=== PATIENT | male | born 1955 | race Caucasian/White ===

== ENCOUNTER 2017-12-20 12:14 | Inpatient (IN) | payer BC ==
[2017-12-20 13:30] LABS: ADD MAN DIFF? NO
[2017-12-20 13:32] LABS: ABNORMAL IP MESSAGE 1; BASOPHIL # 0.4 10^3/ul (0.0-0.1); BASOPHILS % 1.9 % (0.0-2.0); EOSINOPHILS # 0.1 10^3/ul (0.0-0.5); EOSINOPHILS % 0.4 % (0.0-7.0); HEMATOCRIT 26.5 % (42.0-52.0); HEMOGLOBIN 8.6 g/dl (14.0-18.0); LYMPHOCYTES # 1.3 10^3/ul (0.8-2.9); LYMPHOCYTES % 5.5 % (15.0-51.0); MEAN CORPUSCULAR HEMOGLOBIN 26.2 pg (29.0-33.0); MEAN CORPUSCULAR HGB CONC 32.5 g/dl (32.0-37.0); MEAN CORPUSCULAR VOLUME 80.8 fl (82.0-101.0); MEAN PLATELET VOLUME 11.9 fl (7.4-10.4); MONOCYTE # 4.9 10^3/ul (0.3-0.9); MONOCYTES % 20.5 % (0.0-11.0); NEUTROPHIL # 16.3 10^3/ul (1.6-7.5); NEUTROPHILS % 68.5 % (39.0-77.0); PLATELET COUNT 439 10^3/UL (140-415); POSITIVE DIFF @See below; RED BLOOD COUNT 3.28 10^6/ul (4.70-6.10); RED CELL DISTRIBUTION WIDTH 19.9 % (11.5-14.5)
[2017-12-20 13:32] LABS: WHITE BLOOD COUNT 23.8 10^3/ul (4.8-10.8)
[2017-12-20 13:47] LABS: AMMONIA 44 umol/l (9-30)
[2017-12-20] MEDS: CEFEPIME 1GM/50 ML (PMX) 50 ML IVPB (13:50)
[2017-12-20] MEDS: SOD CHLORIDE 0.9% 1,000 ML IV (13:50)
[2017-12-20 14:00] LABS: ALANINE AMINOTRANSFERASE 53 IU/L (13-69); ALBUMIN 2.1 g/dl (3.3-4.9); ALKALINE PHOSPHATASE 191 IU/L (42-121); ANION GAP 17 (8-16); ASPARTATE AMINO TRANSFERASE 70 IU/L (15-46); BILIRUBIN,INDIRECT 0.4 mg/dl (0-1.1); BILIRUBIN,TOTAL 0.4 mg/dl (0.2-1.3); BLOOD UREA NITROGEN 21 mg/dl (7-20); CARBON DIOXIDE 20 mmol/L (21-31); CHLORIDE 95 mmol/L (97-110); CREATININE 2.92 mg/dl (0.61-1.24); GLUCOSE 94 mg/dl (70-220); LIPASE 17 U/L (23-300); SODIUM 129 mmol/L (135-144); TOTAL PROTEIN 5.1 g/dl (6.1-8.1)
[2017-12-20 14:05] LABS: INR 1.53; PARTIAL THROMBOPLASTIN TIME 38.8 Sec (25.0-35.0); PROTIME 18.7 Sec (11.9-14.9); PT RATIO 1.5
[2017-12-20 14:07] LABS: POTASSIUM 2.9 mmol/L (3.5-5.1)
[2017-12-20 14:09] LABS: B-TYPE NATRIURETIC PEPTIDE 372 PG/ML (0-125)
[2017-12-20 14:11] LABS: TROPONIN-I < 0.012 ng/ml (0.00-0.12)
[2017-12-20] MEDS: POTASSIUM CHLORIDE 50 ML IVPB ×2 (14:23→18:44)
[2017-12-20] MEDS: LACTULOSE 30ML CUP PO (15:43)
[2017-12-20 16:24] LABS: ADD UMIC NO; UR ASCORBIC ACID NEGATIVE (NEGATIVE); UR BILIRUBIN (Dip) NEGATIVE (NEGATIVE); UR BLOOD (Dip) NEGATIVE (NEGATIVE); UR CLARITY CLEAR (CLEAR); UR COLOR YELLOW (YELLOW); UR GLUCOSE (Dip) NEGATIVE (NEGATIVE); UR KETONES (Dip) NEGATIVE (NEGATIVE); UR LEUKOCYTE ESTERASE (Dip) NEGATIVE Leu/ul (NEGATIVE); UR NITRITE (Dip) NEGATIVE (NEGATIVE); UR SPECIFIC GRAVITY (Dip) 1.009 (1.003-1.030); UR TOTAL PROTEIN (Dip) NEGATIVE (NEGATIVE); UR UROBILINOGEN (Dip) NEGATIVE (NEGATIVE)
[2017-12-20] MEDS: CALCIUM GLUCONATE 10% 2 GM in DEXTROSE 5% 100 ML IVPB (16:29)
[2017-12-20] MEDS: CLINDAMYCIN 600 MG/D5W (PMX) 50 ML IVPB (18:52)
[2017-12-20 19:47] LABS: LACTIC ACID 4.3 mmol/L (0.5-2.0)
[2017-12-20] MEDS ORDERED: VANCOMYCIN IV PER PHARMACY XX (22:00)
[2017-12-20] MEDS ORDERED: ACETAMINOPHEN 500 MG TAB PO (22:00)
[2017-12-20] MEDS: morphine 2 MG INJ IV (22:44)
[2017-12-20] MEDS: SOD CHLORIDE 0.45% 1,000 ML IV (22:46)
[2017-12-20 22:47] LABS: LACTIC ACID 4.1 mmol/L (0.5-2.0)
[2017-12-20] MEDS: POTASSIUM CHLORIDE 20 MEQ/SW 100 ML IVPB (23:30)
[2017-12-21] MEDS: VANCOMYCIN 2 GM in SOD CHLORIDE 0.9% 500 ML IVPB (00:47)
[2017-12-21] MEDS: POTASSIUM CHLORIDE 20 MEQ/SW 100 ML IVPB (01:30)
[2017-12-21] MEDS: LEVOTHYROXINE 100 MCG TAB PO (05:30)
[2017-12-21] MEDS: oxyCODONE 5 MG TAB PO ×2 (05:30→11:37)
[2017-12-21 07:27] LABS: ADD MAN DIFF? NO
[2017-12-21 07:32] LABS: WHITE BLOOD COUNT 18.3 10^3/ul (4.8-10.8)
[2017-12-21 07:32] LABS: ABNORMAL IP MESSAGE 1; BASOPHIL # 0.4 10^3/ul (0.0-0.1); EOSINOPHILS # 0.2 10^3/ul (0.0-0.5); EOSINOPHILS % 0.9 % (0.0-7.0); HEMATOCRIT 26.9 % (42.0-52.0); HEMOGLOBIN 8.7 g/dl (14.0-18.0); LYMPHOCYTES # 0.8 10^3/ul (0.8-2.9); LYMPHOCYTES % 4.4 % (15.0-51.0); MEAN CORPUSCULAR HEMOGLOBIN 25.9 pg (29.0-33.0); MEAN CORPUSCULAR HGB CONC 32.3 g/dl (32.0-37.0); MEAN CORPUSCULAR VOLUME 80.1 fl (82.0-101.0); MEAN PLATELET VOLUME 11.9 fl (7.4-10.4); MONOCYTE # 3.8 10^3/ul (0.3-0.9); MONOCYTES % 20.7 % (0.0-11.0); NEUTROPHIL # 12.7 10^3/ul (1.6-7.5); NEUTROPHILS % 69.5 % (39.0-77.0); PLATELET COUNT 388 10^3/UL (140-415); POSITIVE DIFF @See below; RED BLOOD COUNT 3.36 10^6/ul (4.70-6.10); RED CELL DISTRIBUTION WIDTH 19.8 % (11.5-14.5)
[2017-12-21 07:56] LABS: ANION GAP 12 (8-16); BLOOD UREA NITROGEN 21 mg/dl (7-20); CALCIUM 7.1 mg/dl (8.4-10.2); CARBON DIOXIDE 25 mmol/L (21-31); CHLORIDE 99 mmol/L (97-110); CREATININE 1.96 mg/dl (0.61-1.24); GLUCOSE 91 mg/dl (70-220); POTASSIUM 3.8 mmol/L (3.5-5.1); SODIUM 132 mmol/L (135-144)
[2017-12-21] MEDS: CEFEPIME 1GM/50 ML (PMX) 50 ML IVPB ×2 (09:20→22:30)
[2017-12-21] MEDS: FOLIC ACID 1 MG TAB PO (09:20)
[2017-12-21] MEDS: ALLOPURINOL 100 MG TAB PO (09:20)
[2017-12-21] MEDS: METOPROLOL (XL) 100 MG TAB PO (09:25)
[2017-12-21] MEDS: SOD CHLORIDE 0.45% 1,000 ML IV (11:20)
[2017-12-21] MEDS: LORAZEPAM 2 MG INJ IV (15:36)
[2017-12-21] MEDS: NEOMYC/POLYMYX/BACIT 30 GM OINT TOP ×2 (17:56→21:00)
[2017-12-21] MEDS: DOCUSATE SODIUM 100 MG CAP PO (22:28)
[2017-12-21] MEDS: TAMSULOSIN (SR) 0.4 MG CAP PO (22:28)
[2017-12-22] MEDS: oxyCODONE 5 MG TAB PO ×2 (01:17→20:25)
[2017-12-22] MEDS: VANCOMYCIN 1.25 GM in SOD CHLORIDE 0.9% 250 ML IVPB (01:17)
[2017-12-22] MEDS: LORAZEPAM 2 MG INJ IV ×3 (03:08→21:38)
[2017-12-22] MEDS: LEVOTHYROXINE 100 MCG TAB PO (06:23)
[2017-12-22 09:08] LABS: ADD MAN DIFF? NO
[2017-12-22] MEDS: NEOMYC/POLYMYX/BACIT 30 GM OINT TOP ×2 (09:18→21:45)
[2017-12-22] MEDS: FOLIC ACID 1 MG TAB PO (09:19)
[2017-12-22] MEDS: ALLOPURINOL 100 MG TAB PO (09:19)
[2017-12-22] MEDS: METOPROLOL (XL) 100 MG TAB PO (09:19)
[2017-12-22] MEDS: CEFEPIME 1GM/50 ML (PMX) 50 ML IVPB ×2 (09:19→21:44)
[2017-12-22 09:31] LABS: ANION GAP 12 (8-16); BLOOD UREA NITROGEN 21 mg/dl (7-20); CARBON DIOXIDE 22 mmol/L (21-31); CHLORIDE 104 mmol/L (97-110); GLUCOSE 72 mg/dl (70-220); POTASSIUM 4.8 mmol/L (3.5-5.1); SODIUM 133 mmol/L (135-144)
[2017-12-22 10:24] LABS: BLOOD UREA NITROGEN 21 mg/dl (7-20)
[2017-12-22 10:24] LABS: CREATININE 1.62 mg/dl (0.61-1.24)
[2017-12-22 14:12] LABS: WHITE BLOOD COUNT 15.8 10^3/ul (4.8-10.8)
[2017-12-22 14:12] LABS: ABNORMAL IP MESSAGE 1; BASOPHIL # 0.3 10^3/ul (0.0-0.1); EOSINOPHILS # 0.2 10^3/ul (0.0-0.5); EOSINOPHILS % 1.1 % (0.0-7.0); HEMATOCRIT 30.4 % (42.0-52.0); HEMOGLOBIN 9.5 g/dl (14.0-18.0); LYMPHOCYTES # 0.8 10^3/ul (0.8-2.9); LYMPHOCYTES % 5.1 % (15.0-51.0); MEAN CORPUSCULAR HEMOGLOBIN 25.9 pg (29.0-33.0); MEAN CORPUSCULAR HGB CONC 31.3 g/dl (32.0-37.0); MEAN CORPUSCULAR VOLUME 82.8 fl (82.0-101.0); MEAN PLATELET VOLUME 11.9 fl (7.4-10.4); MONOCYTE # 2.3 10^3/ul (0.3-0.9); MONOCYTES % 14.6 % (0.0-11.0); NEUTROPHIL # 11.9 10^3/ul (1.6-7.5); NEUTROPHILS % 75.4 % (39.0-77.0); PLATELET COUNT 326 10^3/UL (140-415); POSITIVE DIFF @See below; RED BLOOD COUNT 3.67 10^6/ul (4.70-6.10); RED CELL DISTRIBUTION WIDTH 20.1 % (11.5-14.5)
[2017-12-22] MEDS: DOCUSATE SODIUM 100 MG CAP PO (21:00)
[2017-12-22] MEDS: TAMSULOSIN (SR) 0.4 MG CAP PO (21:44)
[2017-12-23] MEDS: oxyCODONE 5 MG TAB PO ×3 (00:51→21:12)
[2017-12-23] MEDS: VANCOMYCIN 1.25 GM in SOD CHLORIDE 0.9% 250 ML IVPB (01:14)
[2017-12-23] MEDS: LORAZEPAM 2 MG INJ IV ×3 (03:51→21:13)
[2017-12-23] MEDS: LEVOTHYROXINE 100 MCG TAB PO (06:14)
[2017-12-23] MEDS: ALLOPURINOL 100 MG TAB PO (09:12)
[2017-12-23] MEDS: FOLIC ACID 1 MG TAB PO (09:12)
[2017-12-23] MEDS: NEOMYC/POLYMYX/BACIT 30 GM OINT TOP ×2 (09:12→21:14)
[2017-12-23] MEDS: CEFEPIME 1GM/50 ML (PMX) 50 ML IVPB ×2 (09:13→21:03)
[2017-12-23] MEDS: METOPROLOL (XL) 100 MG TAB PO (09:13)
[2017-12-23] MEDS: DOCUSATE SODIUM 100 MG CAP PO (21:03)
[2017-12-23] MEDS: TAMSULOSIN (SR) 0.4 MG CAP PO (21:03)
[2017-12-23] MEDS: ALBUTEROL/IPRATROPIUM (NEB) 3 ML AMP HHN (23:55)
[2017-12-24] MEDS: VANCOMYCIN 1.25 GM in SOD CHLORIDE 0.9% 250 ML IVPB (00:32)
[2017-12-24 01:38] LABS: VANCOMYCIN,TROUGH 14.1 ug/ml (10.0-20.0)
[2017-12-24] MEDS: LEVOTHYROXINE 100 MCG TAB PO (05:03)
[2017-12-24] MEDS: oxyCODONE 5 MG TAB PO ×2 (05:11→09:07)
[2017-12-24 07:45] LABS: ADD MAN DIFF? NO
[2017-12-24 08:08] LABS: BLOOD UREA NITROGEN 18 mg/dl (7-20); CALCIUM 7.4 mg/dl (8.4-10.2); CARBON DIOXIDE 22 mmol/L (21-31); CHLORIDE 107 mmol/L (97-110); CREATININE 1.26 mg/dl (0.61-1.24); GLUCOSE 89 mg/dl (70-220); SODIUM 136 mmol/L (135-144)
[2017-12-24 08:16] LABS: ANION GAP 13 (8-16)
[2017-12-24 08:21] LABS: POTASSIUM 5.6 mmol/L (3.5-5.1)
[2017-12-24] MEDS: ALLOPURINOL 100 MG TAB PO (09:02)
[2017-12-24] MEDS: FOLIC ACID 1 MG TAB PO (09:02)
[2017-12-24] MEDS: NEOMYC/POLYMYX/BACIT 30 GM OINT TOP (09:02)
[2017-12-24] MEDS: METOPROLOL (XL) 100 MG TAB PO (09:03)
[2017-12-24 09:06] LABS: ABNORMAL IP MESSAGE 1; BASOPHIL # 0.5 10^3/ul (0.0-0.1); BASOPHILS % 2.7 % (0.0-2.0); EOSINOPHILS # 0.3 10^3/ul (0.0-0.5); EOSINOPHILS % 1.9 % (0.0-7.0); HEMATOCRIT 29.4 % (42.0-52.0); HEMOGLOBIN 8.8 g/dl (14.0-18.0); MEAN CORPUSCULAR HEMOGLOBIN 25.4 pg (29.0-33.0); MEAN CORPUSCULAR HGB CONC 29.9 g/dl (32.0-37.0); MONOCYTE # 2.6 10^3/ul (0.3-0.9); MONOCYTES % 15.4 % (0.0-11.0); NEUTROPHIL # 12.2 10^3/ul (1.6-7.5); NEUTROPHILS % 71.8 % (39.0-77.0); PLATELET COUNT 257 10^3/UL (140-415); POSITIVE DIFF @See below; RED BLOOD COUNT 3.46 10^6/ul (4.70-6.10); RED CELL DISTRIBUTION WIDTH 20.3 % (11.5-14.5)
[2017-12-24 09:49] LABS: POTASSIUM 4.3 mmol/L (3.5-5.1)
== END 2017-12-24 13:16 | disposition left against medical advice (07) | DRG 871 ==
LOC: E/R 12:14 → MS4 14:29
DX: A41.9 Sepsis, unspecified organism (principal); R65.21 Severe sepsis with septic shock; L03.115 Cellulitis of right lower limb; L03.116 Cellulitis of left lower limb; N17.9 Acute kidney failure, unspecified; E87.2 Acidosis; E87.6 Hypokalemia; E03.9 Hypothyroidism, unspecified; E66.9 Obesity, unspecified; F10.20 Alcohol dependence, uncomplicated; F17.200 Nicotine dependence, unspecified, uncomplicated; J44.9 Chronic obstructive pulmonary disease, unspecified; I87.2 Venous insufficiency (chronic) (peripheral); I12.9 Hypertensive chronic kidney disease with stage 1 through stage 4 chronic kidney disease, or unspecified chronic kidney disease; K70.31 Alcoholic cirrhosis of liver with ascites; N18.9 Chronic kidney disease, unspecified; Z68.35 Body mass index [BMI] 35.0-35.9, adult
CPT/HCPCS: 71045; 74176; 80048; 80053; 80202; 80306; 81003; 82140; 82565; 83605; 83690; 83880; 84132; 84484; 84520; 85025; 85610; 85730; 87040; 87081; 87086; 93005; 94664; 96365; 96366; 96368; 99291-25

== ENCOUNTER 2017-12-24 15:50 | Inpatient (IN) | payer BC ==
[2017-12-24 20:08] LABS: WHITE BLOOD COUNT 20.6 10^3/ul (4.8-10.8)
[2017-12-24 20:08] LABS: ABNORMAL IP MESSAGE 1; HEMATOCRIT 28.1 % (42.0-52.0); HEMOGLOBIN 8.9 g/dl (14.0-18.0); MEAN CORPUSCULAR HEMOGLOBIN 26.3 pg (29.0-33.0); MEAN CORPUSCULAR HGB CONC 31.7 g/dl (32.0-37.0); MEAN CORPUSCULAR VOLUME 83.1 fl (82.0-101.0); MEAN PLATELET VOLUME 12.4 fl (7.4-10.4); PLATELET COUNT 332 10^3/UL (140-415); POSITIVE DIFF @See below; RED BLOOD COUNT 3.38 10^6/ul (4.70-6.10); RED CELL DISTRIBUTION WIDTH 19.9 % (11.5-14.5)
[2017-12-24 20:16] LABS: ADD MAN DIFF? YES
[2017-12-24 20:19] LABS: ANION GAP 16 (8-16); BLOOD UREA NITROGEN 16 mg/dl (7-20); CALCIUM 7.3 mg/dl (8.4-10.2); CARBON DIOXIDE 19 mmol/L (21-31); CHLORIDE 105 mmol/L (97-110); CREATININE 1.29 mg/dl (0.61-1.24); GLUCOSE 111 mg/dl (70-220); POTASSIUM 3.7 mmol/L (3.5-5.1); SODIUM 136 mmol/L (135-144)
[2017-12-24 20:30] LABS: B-TYPE NATRIURETIC PEPTIDE 1240 PG/ML (0-125)
[2017-12-24 20:32] LABS: TROPONIN-I < 0.012 ng/ml (0.00-0.12)
[2017-12-24 21:13] LABS: ALANINE AMINOTRANSFERASE 50 IU/L (13-69); ALBUMIN 2.2 g/dl (3.3-4.9); ALKALINE PHOSPHATASE 213 IU/L (42-121); ASPARTATE AMINO TRANSFERASE 73 IU/L (15-46); BILIRUBIN,INDIRECT 0.4 mg/dl (0-1.1); BILIRUBIN,TOTAL 0.4 mg/dl (0.2-1.3); TOTAL PROTEIN 5.3 g/dl (6.1-8.1)
[2017-12-24 23:54] LABS: BASOPHIL # 0.5 10^3/ul (0.0-0.1); BASOPHILS % 2.6 % (0.0-2.0); EOSINOPHILS # 0.3 10^3/ul (0.0-0.5); EOSINOPHILS % 1.3 % (0.0-7.0); LYMPHOCYTES # 1.2 10^3/ul (0.8-2.9); LYMPHOCYTES % 5.8 % (15.0-51.0); MONOCYTE # 3.2 10^3/ul (0.3-0.9); MONOCYTES % 15.4 % (0.0-11.0); NEUTROPHIL # 14.9 10^3/ul (1.6-7.5); NEUTROPHILS % 72.2 % (39.0-77.0)
[2017-12-25] MEDS ORDERED: VANCOMYCIN IV PER PHARMACY XX (01:00)
[2017-12-25 01:52] LABS: CREATINE KINASE 42 IU/L (23-200)
[2017-12-25 02:03] LABS: CK INDEX 3.9
[2017-12-25 02:06] LABS: CK-MB 1.65 ng/ml (0.0-2.4); TROPONIN-I < 0.012 ng/ml (0.00-0.12)
[2017-12-25] MEDS: LORAZEPAM 0.5 MG TAB PO ×2 (02:11→16:35)
[2017-12-25] MEDS: HYDROmorphONE 0.5 MG/0.5 ML SYG IV ×3 (02:12→20:28)
[2017-12-25] MEDS: VANCOMYCIN 1.25 GM in SOD CHLORIDE 0.9% 250 ML IVPB (03:13)
[2017-12-25] MEDS: oxyCODONE (CR) 10 MG TAB [oxyCONTIN] PO ×5 (03:19→22:28)
[2017-12-25] MEDS: FUROSEMIDE 40 MG INJ IV ×2 (05:22→17:14)
[2017-12-25] MEDS: LEVOTHYROXINE 100 MCG TAB PO (05:23)
[2017-12-25] MEDS: CEFEPIME 1GM/50 ML (PMX) 50 ML IVPB ×3 (08:11→17:14)
[2017-12-25] MEDS: FOLIC ACID 1 MG TAB PO (08:12)
[2017-12-25] MEDS: METOPROLOL (XL) 100 MG TAB PO (08:12)
[2017-12-25] MEDS: ALLOPURINOL 100 MG TAB PO (08:12)
[2017-12-25 08:24] LABS: ADD MAN DIFF? NO
[2017-12-25 08:34] LABS: ABNORMAL IP MESSAGE 1; BASOPHIL # 0.6 10^3/ul (0.0-0.1); BASOPHILS % 2.7 % (0.0-2.0); EOSINOPHILS # 0.6 10^3/ul (0.0-0.5); EOSINOPHILS % 2.9 % (0.0-7.0); HEMATOCRIT 30.1 % (42.0-52.0); HEMOGLOBIN 9.3 g/dl (14.0-18.0); LYMPHOCYTES # 1.4 10^3/ul (0.8-2.9); LYMPHOCYTES % 6.6 % (15.0-51.0); MEAN CORPUSCULAR HEMOGLOBIN 25.5 pg (29.0-33.0); MEAN CORPUSCULAR HGB CONC 30.9 g/dl (32.0-37.0); MEAN CORPUSCULAR VOLUME 82.7 fl (82.0-101.0); MEAN PLATELET VOLUME 12.5 fl (7.4-10.4); MONOCYTES % 14.5 % (0.0-11.0); NEUTROPHIL # 14.5 10^3/ul (1.6-7.5); NEUTROPHILS % 69.9 % (39.0-77.0); PLATELET COUNT 350 10^3/UL (140-415); POSITIVE DIFF @See below; RED BLOOD COUNT 3.64 10^6/ul (4.70-6.10); RED CELL DISTRIBUTION WIDTH 20.2 % (11.5-14.5)
[2017-12-25 08:34] LABS: WHITE BLOOD COUNT 20.7 10^3/ul (4.8-10.8)
[2017-12-25 08:47] LABS: CREATINE KINASE 52 IU/L (23-200)
[2017-12-25 08:51] LABS: ANION GAP 12 (8-16); BLOOD UREA NITROGEN 16 mg/dl (7-20); CALCIUM 7.5 mg/dl (8.4-10.2); CARBON DIOXIDE 24 mmol/L (21-31); CHLORIDE 105 mmol/L (97-110); CREATININE 1.34 mg/dl (0.61-1.24); GLUCOSE 86 mg/dl (70-220); SODIUM 137 mmol/L (135-144)
[2017-12-25 08:58] LABS: CK INDEX 3.5
[2017-12-25 09:07] LABS: CK-MB 1.83 ng/ml (0.0-2.4); TROPONIN-I < 0.012 ng/ml (0.00-0.12)
[2017-12-25] MEDS: NICOTINE (14 MG/24 HR) PATCH TRANSDERM (13:14)
[2017-12-25 16:13] LABS: INR 1.32; PROTIME 16.6 Sec (11.9-14.9); PT RATIO 1.3
[2017-12-25] MEDS: DOCUSATE SODIUM 100 MG CAP PO (20:28)
[2017-12-25] MEDS: TAMSULOSIN (SR) 0.4 MG CAP PO (20:28)
[2017-12-26] MEDS: HYDROmorphONE 0.5 MG/0.5 ML SYG IV ×4 (00:54→20:51)
[2017-12-26] MEDS: LORAZEPAM 0.5 MG TAB PO ×3 (01:45→20:51)
[2017-12-26] MEDS: VANCOMYCIN 1.25 GM in SOD CHLORIDE 0.9% 250 ML IVPB (02:35)
[2017-12-26] MEDS: FUROSEMIDE 40 MG INJ IV ×2 (06:13→18:00)
[2017-12-26] MEDS: LEVOTHYROXINE 100 MCG TAB PO (06:14)
[2017-12-26 06:19] LABS: ADD MAN DIFF? NO
[2017-12-26 06:24] LABS: ABNORMAL IP MESSAGE 1; BASOPHIL # 0.4 10^3/ul (0.0-0.1); BASOPHILS % 2.2 % (0.0-2.0); EOSINOPHILS # 0.3 10^3/ul (0.0-0.5); EOSINOPHILS % 1.8 % (0.0-7.0); HEMATOCRIT 28.7 % (42.0-52.0); LYMPHOCYTES # 1.2 10^3/ul (0.8-2.9); LYMPHOCYTES % 6.7 % (15.0-51.0); MEAN CORPUSCULAR HGB CONC 31.4 g/dl (32.0-37.0); MEAN CORPUSCULAR VOLUME 82.9 fl (82.0-101.0); MEAN PLATELET VOLUME 12.6 fl (7.4-10.4); MONOCYTE # 2.6 10^3/ul (0.3-0.9); MONOCYTES % 14.6 % (0.0-11.0); NEUTROPHILS % 72.9 % (39.0-77.0); PLATELET COUNT 263 10^3/UL (140-415); POSITIVE DIFF @See below; RED BLOOD COUNT 3.46 10^6/ul (4.70-6.10); RED CELL DISTRIBUTION WIDTH 20.2 % (11.5-14.5)
[2017-12-26 06:24] LABS: WHITE BLOOD COUNT 17.8 10^3/ul (4.8-10.8)
[2017-12-26 06:45] LABS: ANION GAP 12 (8-16); BLOOD UREA NITROGEN 19 mg/dl (7-20); CALCIUM 7.3 mg/dl (8.4-10.2); CARBON DIOXIDE 23 mmol/L (21-31); CHLORIDE 108 mmol/L (97-110); GLUCOSE 85 mg/dl (70-220); SODIUM 139 mmol/L (135-144)
[2017-12-26] MEDS: ALLOPURINOL 100 MG TAB PO (09:28)
[2017-12-26] MEDS: CEFEPIME 1GM/50 ML (PMX) 50 ML IVPB ×2 (09:28→20:43)
[2017-12-26] MEDS: METOPROLOL (XL) 100 MG TAB PO (09:28)
[2017-12-26] MEDS: FOLIC ACID 1 MG TAB PO (09:28)
[2017-12-26] MEDS: NICOTINE (14 MG/24 HR) PATCH TRANSDERM (09:28)
[2017-12-26] MEDS: oxyCODONE (CR) 10 MG TAB [oxyCONTIN] PO ×2 (12:06→18:24)
[2017-12-26] MEDS: TAMSULOSIN (SR) 0.4 MG CAP PO (20:43)
[2017-12-26] MEDS: DOCUSATE SODIUM 100 MG CAP PO (21:00)
[2017-12-27] MEDS: HYDROmorphONE 0.5 MG/0.5 ML SYG IV ×6 (00:59→22:18)
[2017-12-27] MEDS: VANCOMYCIN 1.25 GM in SOD CHLORIDE 0.9% 250 ML IVPB (02:20)
[2017-12-27] MEDS: oxyCODONE (CR) 10 MG TAB [oxyCONTIN] PO ×3 (02:23→20:46)
[2017-12-27] MEDS: LORAZEPAM 0.5 MG TAB PO ×3 (02:23→22:42)
[2017-12-27] MEDS: ALBUTEROL/IPRATROPIUM (NEB) 3 ML AMP HHN (03:04)
[2017-12-27] MEDS: FUROSEMIDE 40 MG INJ IV ×2 (05:10→17:58)
[2017-12-27] MEDS: LEVOTHYROXINE 100 MCG TAB PO (05:10)
[2017-12-27 06:16] LABS: ADD MAN DIFF? NO
[2017-12-27 06:25] LABS: ABNORMAL IP MESSAGE 1; BASOPHIL # 0.3 10^3/ul (0.0-0.1); BASOPHILS % 2.2 % (0.0-2.0); EOSINOPHILS # 0.3 10^3/ul (0.0-0.5); HEMATOCRIT 25.5 % (42.0-52.0); HEMOGLOBIN 8.1 g/dl (14.0-18.0); LYMPHOCYTES # 0.9 10^3/ul (0.8-2.9); LYMPHOCYTES % 6.4 % (15.0-51.0); MEAN CORPUSCULAR HEMOGLOBIN 26.5 pg (29.0-33.0); MEAN CORPUSCULAR HGB CONC 31.8 g/dl (32.0-37.0); MEAN CORPUSCULAR VOLUME 83.3 fl (82.0-101.0); MEAN PLATELET VOLUME 12.2 fl (7.4-10.4); MONOCYTE # 1.8 10^3/ul (0.3-0.9); MONOCYTES % 12.9 % (0.0-11.0); NEUTROPHIL # 10.7 10^3/ul (1.6-7.5); NEUTROPHILS % 74.7 % (39.0-77.0); PLATELET COUNT 231 10^3/UL (140-415); POSITIVE DIFF @See below; RED BLOOD COUNT 3.06 10^6/ul (4.70-6.10); RED CELL DISTRIBUTION WIDTH 20.6 % (11.5-14.5)
[2017-12-27 06:25] LABS: WHITE BLOOD COUNT 14.3 10^3/ul (4.8-10.8)
[2017-12-27 06:56] LABS: ANION GAP 10 (8-16); BLOOD UREA NITROGEN 19 mg/dl (7-20); CALCIUM 7.1 mg/dl (8.4-10.2); CARBON DIOXIDE 24 mmol/L (21-31); CHLORIDE 109 mmol/L (97-110); CREATININE 1.33 mg/dl (0.61-1.24); GLUCOSE 78 mg/dl (70-220); SODIUM 139 mmol/L (135-144)
[2017-12-27] MEDS: CEFEPIME 1GM/50 ML (PMX) 50 ML IVPB ×2 (08:58→20:16)
[2017-12-27] MEDS: FOLIC ACID 1 MG TAB PO (08:59)
[2017-12-27] MEDS: ALLOPURINOL 100 MG TAB PO (08:59)
[2017-12-27] MEDS: METOPROLOL (XL) 100 MG TAB PO (08:59)
[2017-12-27] MEDS: NICOTINE (14 MG/24 HR) PATCH TRANSDERM (09:01)
[2017-12-27] MEDS: FERROUS SULFATE (EC) 325 MG TAB PO (20:10)
[2017-12-27] MEDS: TAMSULOSIN (SR) 0.4 MG CAP PO (20:10)
[2017-12-27] MEDS: DOCUSATE SODIUM 100 MG CAP PO (20:11)
[2017-12-28] MEDS: VANCOMYCIN 1.25 GM in SOD CHLORIDE 0.9% 250 ML IVPB (01:43)
[2017-12-28] MEDS: oxyCODONE (CR) 10 MG TAB [oxyCONTIN] PO ×3 (01:46→09:49)
[2017-12-28] MEDS: HYDROmorphONE 0.5 MG/0.5 ML SYG IV ×5 (03:00→20:54)
[2017-12-28] MEDS: FUROSEMIDE 40 MG INJ IV ×2 (05:45→17:49)
[2017-12-28] MEDS: LEVOTHYROXINE 100 MCG TAB PO (05:45)
[2017-12-28] MEDS: LORAZEPAM 0.5 MG TAB PO ×3 (05:47→20:54)
[2017-12-28 05:48] LABS: ADD MAN DIFF? NO
[2017-12-28 05:49] LABS: WHITE BLOOD COUNT 13.8 10^3/ul (4.8-10.8)
[2017-12-28 05:49] LABS: ABNORMAL IP MESSAGE 1; BASOPHIL # 0.3 10^3/ul (0.0-0.1); EOSINOPHILS # 0.3 10^3/ul (0.0-0.5); HEMATOCRIT 26.8 % (42.0-52.0); HEMOGLOBIN 8.1 g/dl (14.0-18.0); LYMPHOCYTES # 0.8 10^3/ul (0.8-2.9); LYMPHOCYTES % 5.6 % (15.0-51.0); MEAN CORPUSCULAR HEMOGLOBIN 25.8 pg (29.0-33.0); MEAN CORPUSCULAR HGB CONC 30.2 g/dl (32.0-37.0); MEAN CORPUSCULAR VOLUME 85.4 fl (82.0-101.0); MEAN PLATELET VOLUME 13.6 fl (7.4-10.4); MONOCYTE # 1.7 10^3/ul (0.3-0.9); MONOCYTES % 12.1 % (0.0-11.0); NEUTROPHIL # 10.5 10^3/ul (1.6-7.5); NEUTROPHILS % 76.1 % (39.0-77.0); PLATELET COUNT 179 10^3/UL (140-415); POSITIVE DIFF @See below; RED BLOOD COUNT 3.14 10^6/ul (4.70-6.10); RED CELL DISTRIBUTION WIDTH 20.8 % (11.5-14.5)
[2017-12-28 06:07] LABS: ANION GAP 9 (8-16); BLOOD UREA NITROGEN 19 mg/dl (7-20); CALCIUM 7.3 mg/dl (8.4-10.2); CARBON DIOXIDE 26 mmol/L (21-31); CHLORIDE 110 mmol/L (97-110); CREATININE 1.45 mg/dl (0.61-1.24); GLUCOSE 87 mg/dl (70-220); POTASSIUM 3.8 mmol/L (3.5-5.1); SODIUM 141 mmol/L (135-144)
[2017-12-28] MEDS: FERROUS SULFATE (EC) 325 MG TAB PO ×2 (08:35→20:52)
[2017-12-28] MEDS: ALLOPURINOL 100 MG TAB PO (08:35)
[2017-12-28] MEDS: CEFEPIME 1GM/50 ML (PMX) 50 ML IVPB ×2 (08:35→20:52)
[2017-12-28] MEDS: NICOTINE (14 MG/24 HR) PATCH TRANSDERM (08:36)
[2017-12-28] MEDS: METOPROLOL (XL) 100 MG TAB PO (08:36)
[2017-12-28] MEDS: FOLIC ACID 1 MG TAB PO (08:36)
[2017-12-28] MEDS: oxyCODONE 5 MG TAB PO ×2 (14:22→18:45)
[2017-12-28] MEDS: DOCUSATE SODIUM 100 MG CAP PO (20:52)
[2017-12-28] MEDS: TAMSULOSIN (SR) 0.4 MG CAP PO (20:52)
[2017-12-29] MEDS: HYDROmorphONE 0.5 MG/0.5 ML SYG IV ×5 (00:55→19:47)
[2017-12-29] MEDS: VANCOMYCIN 1 GM (PMX) 250 ML IVPB (02:43)
[2017-12-29] MEDS: LORAZEPAM 0.5 MG TAB PO ×3 (02:49→20:06)
[2017-12-29] MEDS: oxyCODONE 5 MG TAB PO ×5 (02:49→23:24)
[2017-12-29] MEDS: ALBUTEROL/IPRATROPIUM (NEB) 3 ML AMP HHN (03:21)
[2017-12-29] MEDS: FUROSEMIDE 40 MG INJ IV (05:17)
[2017-12-29] MEDS: LEVOTHYROXINE 100 MCG TAB PO (05:17)
[2017-12-29 06:11] LABS: ADD MAN DIFF? NO
[2017-12-29 06:15] LABS: WHITE BLOOD COUNT 15.9 10^3/ul (4.8-10.8)
[2017-12-29 06:15] LABS: ABNORMAL IP MESSAGE 1; BASOPHIL # 0.3 10^3/ul (0.0-0.1); BASOPHILS % 1.9 % (0.0-2.0); EOSINOPHILS # 0.4 10^3/ul (0.0-0.5); EOSINOPHILS % 2.5 % (0.0-7.0); HEMATOCRIT 26.9 % (42.0-52.0); HEMOGLOBIN 8.3 g/dl (14.0-18.0); LYMPHOCYTES # 0.9 10^3/ul (0.8-2.9); LYMPHOCYTES % 5.9 % (15.0-51.0); MEAN CORPUSCULAR HEMOGLOBIN 26.3 pg (29.0-33.0); MEAN CORPUSCULAR HGB CONC 30.9 g/dl (32.0-37.0); MEAN CORPUSCULAR VOLUME 85.1 fl (82.0-101.0); MEAN PLATELET VOLUME 12.7 fl (7.4-10.4); MONOCYTE # 2.3 10^3/ul (0.3-0.9); MONOCYTES % 14.5 % (0.0-11.0); NEUTROPHIL # 11.6 10^3/ul (1.6-7.5); NEUTROPHILS % 72.9 % (39.0-77.0); PLATELET COUNT 257 10^3/UL (140-415); POSITIVE DIFF @See below; RED BLOOD COUNT 3.16 10^6/ul (4.70-6.10); RED CELL DISTRIBUTION WIDTH 20.2 % (11.5-14.5)
[2017-12-29 06:29] LABS: ANION GAP 10 (8-16)
[2017-12-29 06:31] LABS: BLOOD UREA NITROGEN 19 mg/dl (7-20); CALCIUM 7.2 mg/dl (8.4-10.2); CARBON DIOXIDE 27 mmol/L (21-31); CHLORIDE 108 mmol/L (97-110); CREATININE 1.69 mg/dl (0.61-1.24); GLUCOSE 84 mg/dl (70-220); POTASSIUM 3.7 mmol/L (3.5-5.1); SODIUM 141 mmol/L (135-144)
[2017-12-29] MEDS: CEFEPIME 2GM/50 ML (PMX) 50 ML IVPB (08:39)
[2017-12-29] MEDS: METOPROLOL (XL) 100 MG TAB PO (08:40)
[2017-12-29] MEDS: ALLOPURINOL 100 MG TAB PO (08:40)
[2017-12-29] MEDS: FERROUS SULFATE (EC) 325 MG TAB PO ×2 (08:40→20:06)
[2017-12-29] MEDS: FOLIC ACID 1 MG TAB PO (08:40)
[2017-12-29] MEDS: NICOTINE (14 MG/24 HR) PATCH TRANSDERM (08:41)
[2017-12-29] MEDS ORDERED: BUMETANIDE 1 MG INJ IV (12:00)
[2017-12-29] MEDS ORDERED: ALBUMIN HUMAN 25% 100 ML IV (12:00)
[2017-12-29] MEDS: ALBUMIN HUMAN 25% 100 ML IV ×2 (12:26→17:10)
[2017-12-29 13:02] LABS: ALPHA FETOPROTEIN 2.42 IU/L (0.00-7.21)
[2017-12-29] MEDS: BUMETANIDE 2 MG in SOD CHLORIDE 0.9% 25 ML IV ×2 (13:38→18:09)
[2017-12-29] MEDS: TAMSULOSIN (SR) 0.4 MG CAP PO (20:06)
[2017-12-29] MEDS: DOCUSATE SODIUM 100 MG CAP PO (20:06)
[2017-12-30] MEDS: HYDROmorphONE 0.5 MG/0.5 ML SYG IV ×6 (00:06→22:09)
[2017-12-30] MEDS: VANCOMYCIN 1 GM (PMX) 250 ML IVPB (01:30)
[2017-12-30] MEDS: LORAZEPAM 0.5 MG TAB PO ×4 (02:04→22:56)
[2017-12-30] MEDS: oxyCODONE 5 MG TAB PO ×5 (03:46→23:32)
[2017-12-30] MEDS: LEVOTHYROXINE 100 MCG TAB PO (04:51)
[2017-12-30] MEDS: ALBUMIN HUMAN 25% 100 ML IV ×2 (04:53→17:04)
[2017-12-30 06:04] LABS: ADD MAN DIFF? NO
[2017-12-30 06:08] LABS: ABNORMAL IP MESSAGE 1; BASOPHIL # 0.3 10^3/ul (0.0-0.1); BASOPHILS % 1.6 % (0.0-2.0); EOSINOPHILS # 0.4 10^3/ul (0.0-0.5); EOSINOPHILS % 2.2 % (0.0-7.0); HEMATOCRIT 26.5 % (42.0-52.0); HEMOGLOBIN 8.4 g/dl (14.0-18.0); LYMPHOCYTES # 0.8 10^3/ul (0.8-2.9); LYMPHOCYTES % 5.2 % (15.0-51.0); MEAN CORPUSCULAR HEMOGLOBIN 26.7 pg (29.0-33.0); MEAN CORPUSCULAR HGB CONC 31.7 g/dl (32.0-37.0); MEAN CORPUSCULAR VOLUME 84.1 fl (82.0-101.0); MEAN PLATELET VOLUME 12.9 fl (7.4-10.4); MONOCYTE # 2.3 10^3/ul (0.3-0.9); MONOCYTES % 14.1 % (0.0-11.0); NEUTROPHILS % 75.2 % (39.0-77.0); PLATELET COUNT 273 10^3/UL (140-415); POSITIVE DIFF @See below; RED BLOOD COUNT 3.15 10^6/ul (4.70-6.10); RED CELL DISTRIBUTION WIDTH 20.1 % (11.5-14.5)
[2017-12-30] MEDS: BUMETANIDE 2 MG in SOD CHLORIDE 0.9% 25 ML IV ×2 (06:11→17:52)
[2017-12-30 06:42] LABS: ANION GAP 11 (8-16); BLOOD UREA NITROGEN 21 mg/dl (7-20); CALCIUM 7.4 mg/dl (8.4-10.2); CARBON DIOXIDE 25 mmol/L (21-31); CHLORIDE 107 mmol/L (97-110); CREATININE 1.58 mg/dl (0.61-1.24); GLUCOSE 75 mg/dl (70-220); POTASSIUM 3.8 mmol/L (3.5-5.1); SODIUM 139 mmol/L (135-144)
[2017-12-30 06:43] LABS: PHOSPHORUS 3.1 mg/dl (2.5-4.9)
[2017-12-30 06:47] LABS: MAGNESIUM 0.8 mg/dl (1.7-2.5)
[2017-12-30] MEDS: FERROUS SULFATE (EC) 325 MG TAB PO ×2 (08:59→20:43)
[2017-12-30] MEDS: METOPROLOL (XL) 100 MG TAB PO (08:59)
[2017-12-30] MEDS: NICOTINE (14 MG/24 HR) PATCH TRANSDERM (09:00)
[2017-12-30] MEDS: FOLIC ACID 1 MG TAB PO (09:00)
[2017-12-30] MEDS: ALLOPURINOL 100 MG TAB PO (09:00)
[2017-12-30] MEDS: CEFEPIME 2GM/50 ML (PMX) 50 ML IVPB (09:22)
[2017-12-30] MEDS: MAGNESIUM SULFATE 3 GM in DEXTROSE 5% 100 ML IVPB (10:02)
[2017-12-30 17:26] LABS: MAGNESIUM 1.3 mg/dl (1.7-2.5)
[2017-12-30] MEDS: DOCUSATE SODIUM 100 MG CAP PO (20:43)
[2017-12-30] MEDS: TAMSULOSIN (SR) 0.4 MG CAP PO (20:43)
[2017-12-31] MEDS: VANCOMYCIN 1 GM (PMX) 250 ML IVPB (01:58)
[2017-12-31] MEDS: HYDROmorphONE 0.5 MG/0.5 ML SYG IV ×6 (02:00→22:56)
[2017-12-31] MEDS: oxyCODONE 5 MG TAB PO ×4 (03:36→21:01)
[2017-12-31] MEDS: LORAZEPAM 0.5 MG TAB PO ×3 (05:11→17:59)
[2017-12-31] MEDS: ALBUMIN HUMAN 25% 100 ML IV ×2 (05:52→17:05)
[2017-12-31] MEDS: LEVOFLOXACIN 250 MG TAB PO (05:53)
[2017-12-31] MEDS: LEVOTHYROXINE 100 MCG TAB PO (05:53)
[2017-12-31 06:03] LABS: ADD MAN DIFF? NO
[2017-12-31 06:11] LABS: ABNORMAL IP MESSAGE 1; BASOPHIL # 0.3 10^3/ul (0.0-0.1); BASOPHILS % 1.7 % (0.0-2.0); EOSINOPHILS # 0.3 10^3/ul (0.0-0.5); HEMATOCRIT 26.9 % (42.0-52.0); HEMOGLOBIN 8.4 g/dl (14.0-18.0); LYMPHOCYTES # 0.9 10^3/ul (0.8-2.9); LYMPHOCYTES % 5.3 % (15.0-51.0); MEAN CORPUSCULAR HGB CONC 31.2 g/dl (32.0-37.0); MEAN CORPUSCULAR VOLUME 83.3 fl (82.0-101.0); MEAN PLATELET VOLUME 12.9 fl (7.4-10.4); MONOCYTE # 2.6 10^3/ul (0.3-0.9); MONOCYTES % 15.1 % (0.0-11.0); NEUTROPHIL # 12.5 10^3/ul (1.6-7.5); NEUTROPHILS % 73.7 % (39.0-77.0); PLATELET COUNT 306 10^3/UL (140-415); POSITIVE DIFF @See below; RED BLOOD COUNT 3.23 10^6/ul (4.70-6.10); RED CELL DISTRIBUTION WIDTH 20.2 % (11.5-14.5)
[2017-12-31 06:11] LABS: WHITE BLOOD COUNT 16.9 10^3/ul (4.8-10.8)
[2017-12-31] MEDS: BUMETANIDE 2 MG in SOD CHLORIDE 0.9% 25 ML IV ×2 (06:12→18:00)
[2017-12-31 06:35] LABS: ANION GAP 9 (8-16); BLOOD UREA NITROGEN 19 mg/dl (7-20); CALCIUM 7.5 mg/dl (8.4-10.2); CARBON DIOXIDE 27 mmol/L (21-31); CHLORIDE 105 mmol/L (97-110); GLUCOSE 88 mg/dl (70-220); MAGNESIUM 1.2 mg/dl (1.7-2.5); POTASSIUM 3.3 mmol/L (3.5-5.1); SODIUM 138 mmol/L (135-144)
[2017-12-31] MEDS: ALBUTEROL/IPRATROPIUM (NEB) 3 ML AMP HHN (08:31)
[2017-12-31] MEDS: FERROUS SULFATE (EC) 325 MG TAB PO ×2 (08:46→21:01)
[2017-12-31] MEDS: FOLIC ACID 1 MG TAB PO (08:46)
[2017-12-31] MEDS: ALLOPURINOL 100 MG TAB PO (08:46)
[2017-12-31] MEDS: METOPROLOL (XL) 100 MG TAB PO (08:47)
[2017-12-31] MEDS: NICOTINE (14 MG/24 HR) PATCH TRANSDERM (08:47)
[2017-12-31] MEDS: MAGNESIUM SULFATE 2 GM/50 ML 50 ML IVPB (09:36)
[2017-12-31] MEDS: POTASSIUM CHLORIDE 100 ML IVPB (11:43)
[2017-12-31] MEDS: DOXYCYCLINE 100 MG TAB PO (21:01)
[2017-12-31] MEDS: TAMSULOSIN (SR) 0.4 MG CAP PO (21:01)
[2017-12-31] MEDS: DOCUSATE SODIUM 100 MG CAP PO (21:01)
[2018-01-01] MEDS: oxyCODONE 5 MG TAB PO ×4 (01:24→20:52)
[2018-01-01] MEDS: HYDROmorphONE 0.5 MG/0.5 ML SYG IV ×5 (03:30→22:16)
[2018-01-01] MEDS: LEVOTHYROXINE 100 MCG TAB PO (05:23)
[2018-01-01] MEDS: LEVOFLOXACIN 250 MG TAB PO (05:23)
[2018-01-01] MEDS: BUMETANIDE 1 MG INJ IV (05:24)
[2018-01-01 05:52] LABS: ADD MAN DIFF? NO
[2018-01-01 06:01] LABS: ABNORMAL IP MESSAGE 1; BASOPHIL # 0.2 10^3/ul (0.0-0.1); EOSINOPHILS # 0.2 10^3/ul (0.0-0.5); EOSINOPHILS % 1.4 % (0.0-7.0); HEMATOCRIT 25.2 % (42.0-52.0); HEMOGLOBIN 7.9 g/dl (14.0-18.0); LYMPHOCYTES # 0.8 10^3/ul (0.8-2.9); LYMPHOCYTES % 4.7 % (15.0-51.0); MEAN CORPUSCULAR HEMOGLOBIN 26.7 pg (29.0-33.0); MEAN CORPUSCULAR HGB CONC 31.3 g/dl (32.0-37.0); MEAN CORPUSCULAR VOLUME 85.1 fl (82.0-101.0); MEAN PLATELET VOLUME 13.2 fl (7.4-10.4); MONOCYTE # 2.5 10^3/ul (0.3-0.9); MONOCYTES % 14.4 % (0.0-11.0); NEUTROPHIL # 13.4 10^3/ul (1.6-7.5); NEUTROPHILS % 77.3 % (39.0-77.0); PLATELET COUNT 299 10^3/UL (140-415); POSITIVE DIFF @See below; RED BLOOD COUNT 2.96 10^6/ul (4.70-6.10)
[2018-01-01 06:01] LABS: WHITE BLOOD COUNT 17.3 10^3/ul (4.8-10.8)
[2018-01-01] MEDS: LORAZEPAM 0.5 MG TAB PO ×2 (06:06→19:46)
[2018-01-01] MEDS: ALLOPURINOL 100 MG TAB PO (08:44)
[2018-01-01] MEDS: FERROUS SULFATE (EC) 325 MG TAB PO ×2 (08:44→20:52)
[2018-01-01] MEDS: DOXYCYCLINE 100 MG TAB PO ×2 (08:45→20:52)
[2018-01-01] MEDS: FOLIC ACID 1 MG TAB PO (08:45)
[2018-01-01] MEDS: METOPROLOL (XL) 100 MG TAB PO (08:45)
[2018-01-01] MEDS: NICOTINE (14 MG/24 HR) PATCH TRANSDERM (08:47)
[2018-01-01] MEDS: MAGNESIUM SULFATE 4 GM/100 ML 100 ML IVPB (10:59)
[2018-01-01 13:22] LABS: WHITE BLOOD COUNT 17.3 10^3/ul (4.8-10.8)
[2018-01-01 13:22] LABS: ABNORMAL IP MESSAGE 1; ADD MAN DIFF? NO; BASOPHIL # 0.2 10^3/ul (0.0-0.1); BASOPHILS % 1.2 % (0.0-2.0); EOSINOPHILS # 0.3 10^3/ul (0.0-0.5); EOSINOPHILS % 1.5 % (0.0-7.0); HEMATOCRIT 26.4 % (42.0-52.0); HEMOGLOBIN 8.2 g/dl (14.0-18.0); LYMPHOCYTES # 0.8 10^3/ul (0.8-2.9); LYMPHOCYTES % 4.8 % (15.0-51.0); MEAN CORPUSCULAR HEMOGLOBIN 26.1 pg (29.0-33.0); MEAN CORPUSCULAR HGB CONC 31.1 g/dl (32.0-37.0); MEAN CORPUSCULAR VOLUME 84.1 fl (82.0-101.0); MEAN PLATELET VOLUME 12.4 fl (7.4-10.4); MONOCYTE # 2.3 10^3/ul (0.3-0.9); MONOCYTES % 13.1 % (0.0-11.0); NEUTROPHIL # 13.5 10^3/ul (1.6-7.5); NEUTROPHILS % 77.8 % (39.0-77.0); PLATELET COUNT 311 10^3/UL (140-415); POSITIVE DIFF @See below; RED BLOOD COUNT 3.14 10^6/ul (4.70-6.10); RED CELL DISTRIBUTION WIDTH 20.2 % (11.5-14.5)
[2018-01-01 13:46] LABS: ANION GAP 14 (8-16); BLOOD UREA NITROGEN 18 mg/dl (7-20); CALCIUM 7.3 mg/dl (8.4-10.2); CARBON DIOXIDE 26 mmol/L (21-31); CHLORIDE 105 mmol/L (97-110); CREATININE 1.71 mg/dl (0.61-1.24); GLUCOSE 116 mg/dl (70-220); MAGNESIUM 1.6 mg/dl (1.7-2.5); PHOSPHORUS 2.9 mg/dl (2.5-4.9); POTASSIUM 3.6 mmol/L (3.5-5.1); SODIUM 141 mmol/L (135-144)
[2018-01-01] MEDS: ISOSORBIDE DINITRATE 10 MG TAB PO ×3 (13:57→21:01)
[2018-01-01] MEDS: DOCUSATE SODIUM 100 MG CAP PO (20:52)
[2018-01-01] MEDS: TAMSULOSIN (SR) 0.4 MG CAP PO (20:54)
[2018-01-02] MEDS: ALBUTEROL/IPRATROPIUM (NEB) 3 ML AMP HHN (00:06)
[2018-01-02] MEDS: ACETAMINOPHEN 500 MG TAB PO ×2 (01:25→19:50)
[2018-01-02] MEDS: oxyCODONE 5 MG TAB PO ×3 (02:00→15:47)
[2018-01-02] MEDS: HYDROmorphONE 0.5 MG/0.5 ML SYG IV ×5 (04:32→21:41)
[2018-01-02] MEDS: LEVOTHYROXINE 100 MCG TAB PO (05:27)
[2018-01-02] MEDS: LEVOFLOXACIN 250 MG TAB PO (05:27)
[2018-01-02] MEDS: LORAZEPAM 0.5 MG TAB PO ×3 (05:37→19:50)
[2018-01-02 06:15] LABS: ADD MAN DIFF? NO
[2018-01-02 06:17] LABS: WHITE BLOOD COUNT 17.9 10^3/ul (4.8-10.8)
[2018-01-02 06:17] LABS: ABNORMAL IP MESSAGE 1; BASOPHIL # 0.2 10^3/ul (0.0-0.1); BASOPHILS % 1.1 % (0.0-2.0); EOSINOPHILS # 0.1 10^3/ul (0.0-0.5); EOSINOPHILS % 0.6 % (0.0-7.0); HEMATOCRIT 25.3 % (42.0-52.0); HEMOGLOBIN 7.9 g/dl (14.0-18.0); LYMPHOCYTES # 1.1 10^3/ul (0.8-2.9); LYMPHOCYTES % 6.1 % (15.0-51.0); MEAN CORPUSCULAR HEMOGLOBIN 26.4 pg (29.0-33.0); MEAN CORPUSCULAR HGB CONC 31.2 g/dl (32.0-37.0); MEAN CORPUSCULAR VOLUME 84.6 fl (82.0-101.0); MEAN PLATELET VOLUME 12.8 fl (7.4-10.4); MONOCYTE # 2.3 10^3/ul (0.3-0.9); NEUTROPHIL # 13.8 10^3/ul (1.6-7.5); NEUTROPHILS % 77.4 % (39.0-77.0); PLATELET COUNT 324 10^3/UL (140-415); POSITIVE DIFF @See below; RED BLOOD COUNT 2.99 10^6/ul (4.70-6.10); RED CELL DISTRIBUTION WIDTH 20.7 % (11.5-14.5)
[2018-01-02 06:59] LABS: ANION GAP 11 (8-16); BLOOD UREA NITROGEN 18 mg/dl (7-20); CALCIUM 7.4 mg/dl (8.4-10.2); CARBON DIOXIDE 26 mmol/L (21-31); CHLORIDE 105 mmol/L (97-110); CREATININE 1.66 mg/dl (0.61-1.24); GLUCOSE 88 mg/dl (70-220); POTASSIUM 3.3 mmol/L (3.5-5.1); SODIUM 139 mmol/L (135-144)
[2018-01-02] MEDS: FERROUS SULFATE (EC) 325 MG TAB PO ×2 (08:36→19:50)
[2018-01-02] MEDS: ISOSORBIDE DINITRATE 10 MG TAB PO ×3 (08:36→19:51)
[2018-01-02] MEDS: METOPROLOL (XL) 100 MG TAB PO (08:36)
[2018-01-02] MEDS: FOLIC ACID 1 MG TAB PO (08:36)
[2018-01-02] MEDS: ALLOPURINOL 100 MG TAB PO (08:36)
[2018-01-02] MEDS: NICOTINE (14 MG/24 HR) PATCH TRANSDERM (08:37)
[2018-01-02] MEDS: DOXYCYCLINE 100 MG TAB PO ×2 (08:37→19:50)
[2018-01-02] MEDS: POTASSIUM CHLORIDE 100 ML IVPB (13:34)
[2018-01-02] MEDS: TAMSULOSIN (SR) 0.4 MG CAP PO (19:51)
[2018-01-02] MEDS: DOCUSATE SODIUM 100 MG CAP PO (19:51)
[2018-01-03] MEDS: oxyCODONE 5 MG TAB PO ×3 (00:49→18:27)
[2018-01-03] MEDS: ALBUTEROL/IPRATROPIUM (NEB) 3 ML AMP HHN (01:25)
[2018-01-03] MEDS: HYDROmorphONE 0.5 MG/0.5 ML SYG IV ×5 (02:05→20:23)
[2018-01-03] MEDS: LORAZEPAM 0.5 MG TAB PO ×3 (03:35→21:34)
[2018-01-03 05:50] LABS: ADD MAN DIFF? NO
[2018-01-03 05:54] LABS: WHITE BLOOD COUNT 19.8 10^3/ul (4.8-10.8)
[2018-01-03 05:54] LABS: ABNORMAL IP MESSAGE 1; BASOPHIL # 0.2 10^3/ul (0.0-0.1); BASOPHILS % 1.1 % (0.0-2.0); EOSINOPHILS # 0.2 10^3/ul (0.0-0.5); EOSINOPHILS % 1.2 % (0.0-7.0); HEMATOCRIT 24.9 % (42.0-52.0); HEMOGLOBIN 7.8 g/dl (14.0-18.0); LYMPHOCYTES % 4.9 % (15.0-51.0); MEAN CORPUSCULAR HEMOGLOBIN 26.4 pg (29.0-33.0); MEAN CORPUSCULAR HGB CONC 31.3 g/dl (32.0-37.0); MEAN CORPUSCULAR VOLUME 84.1 fl (82.0-101.0); MEAN PLATELET VOLUME 13.1 fl (7.4-10.4); MONOCYTE # 2.4 10^3/ul (0.3-0.9); MONOCYTES % 12.2 % (0.0-11.0); NEUTROPHIL # 15.7 10^3/ul (1.6-7.5); NEUTROPHILS % 79.3 % (39.0-77.0); PLATELET COUNT 341 10^3/UL (140-415); POSITIVE DIFF @See below; RED BLOOD COUNT 2.96 10^6/ul (4.70-6.10); RED CELL DISTRIBUTION WIDTH 20.7 % (11.5-14.5)
[2018-01-03 06:08] LABS: ALANINE AMINOTRANSFERASE 35 IU/L (13-69); ALBUMIN 2.6 g/dl (3.3-4.9); ALKALINE PHOSPHATASE 134 IU/L (42-121); ASPARTATE AMINO TRANSFERASE 51 IU/L (15-46); BILIRUBIN,INDIRECT 0.3 mg/dl (0-1.1); BILIRUBIN,TOTAL 0.3 mg/dl (0.2-1.3); TOTAL PROTEIN 5.5 g/dl (6.1-8.1)
[2018-01-03 06:10] LABS: ANION GAP 14 (8-16); BLOOD UREA NITROGEN 20 mg/dl (7-20); CALCIUM 7.5 mg/dl (8.4-10.2); CARBON DIOXIDE 24 mmol/L (21-31); CHLORIDE 106 mmol/L (97-110); CREATININE 1.63 mg/dl (0.61-1.24); GLUCOSE 85 mg/dl (70-220); SODIUM 140 mmol/L (135-144)
[2018-01-03 06:11] LABS: INR 1.43; PROTIME 17.7 Sec (11.9-14.9); PT RATIO 1.4
[2018-01-03 06:12] LABS: PARTIAL THROMBOPLASTIN TIME 38.5 Sec (25.0-35.0)
[2018-01-03] MEDS: LEVOTHYROXINE 100 MCG TAB PO (06:17)
[2018-01-03] MEDS: LEVOFLOXACIN 250 MG TAB PO (06:17)
[2018-01-03 06:27] LABS: PHOSPHORUS 2.6 mg/dl (2.5-4.9)
[2018-01-03 06:27] LABS: MAGNESIUM 1.8 mg/dl (1.7-2.5)
[2018-01-03] MEDS: DOXYCYCLINE 100 MG TAB PO ×2 (10:02→21:34)
[2018-01-03] MEDS: FERROUS SULFATE (EC) 325 MG TAB PO ×2 (10:02→21:34)
[2018-01-03] MEDS: FOLIC ACID 1 MG TAB PO (10:02)
[2018-01-03] MEDS: NICOTINE (14 MG/24 HR) PATCH TRANSDERM (10:02)
[2018-01-03] MEDS: ALLOPURINOL 100 MG TAB PO (10:02)
[2018-01-03] MEDS: METOPROLOL (XL) 100 MG TAB PO (10:03)
[2018-01-03] MEDS: ISOSORBIDE DINITRATE 10 MG TAB PO ×3 (10:04→21:35)
[2018-01-03] MEDS: FUROSEMIDE 20 MG TAB PO (18:28)
[2018-01-03] MEDS: DOCUSATE SODIUM 100 MG CAP PO (21:34)
[2018-01-03] MEDS: TAMSULOSIN (SR) 0.4 MG CAP PO (21:34)
[2018-01-03] MEDS: LUBIPROSTONE 24 MCG CAP PO (21:34)
[2018-01-03] MEDS: SENNA TAB PO (21:41)
[2018-01-04] MEDS: oxyCODONE 5 MG TAB PO ×5 (00:59→22:08)
[2018-01-04] MEDS: LORAZEPAM 0.5 MG TAB PO ×3 (04:08→21:28)
[2018-01-04] MEDS: HYDROmorphONE 0.5 MG/0.5 ML SYG IV ×6 (04:39→23:53)
[2018-01-04 06:04] LABS: ADD MAN DIFF? NO
[2018-01-04] MEDS: LEVOFLOXACIN 250 MG TAB PO (06:05)
[2018-01-04] MEDS: FUROSEMIDE 20 MG TAB PO ×2 (06:06→20:09)
[2018-01-04] MEDS: LEVOTHYROXINE 100 MCG TAB PO (06:06)
[2018-01-04 06:12] LABS: WHITE BLOOD COUNT 20.6 10^3/ul (4.8-10.8)
[2018-01-04 06:12] LABS: ABNORMAL IP MESSAGE 1; BASOPHIL # 0.2 10^3/ul (0.0-0.1); BASOPHILS % 0.7 % (0.0-2.0); EOSINOPHILS # 0.3 10^3/ul (0.0-0.5); EOSINOPHILS % 1.7 % (0.0-7.0); HEMATOCRIT 24.7 % (42.0-52.0); HEMOGLOBIN 7.6 g/dl (14.0-18.0); LYMPHOCYTES # 1.1 10^3/ul (0.8-2.9); LYMPHOCYTES % 5.1 % (15.0-51.0); MEAN CORPUSCULAR HEMOGLOBIN 26.2 pg (29.0-33.0); MEAN CORPUSCULAR HGB CONC 30.8 g/dl (32.0-37.0); MEAN CORPUSCULAR VOLUME 85.2 fl (82.0-101.0); MEAN PLATELET VOLUME 12.6 fl (7.4-10.4); MONOCYTE # 2.7 10^3/ul (0.3-0.9); MONOCYTES % 12.9 % (0.0-11.0); NEUTROPHILS % 77.7 % (39.0-77.0); PLATELET COUNT 375 10^3/UL (140-415); POSITIVE DIFF @See below; RED CELL DISTRIBUTION WIDTH 20.5 % (11.5-14.5)
[2018-01-04 06:52] LABS: ANION GAP 11 (8-16); BLOOD UREA NITROGEN 19 mg/dl (7-20); CALCIUM 7.7 mg/dl (8.4-10.2); CARBON DIOXIDE 25 mmol/L (21-31); CHLORIDE 105 mmol/L (97-110); CREATININE 1.61 mg/dl (0.61-1.24); GLUCOSE 82 mg/dl (70-220); POTASSIUM 3.5 mmol/L (3.5-5.1); SODIUM 137 mmol/L (135-144)
[2018-01-04] MEDS: FERROUS SULFATE (EC) 325 MG TAB PO ×2 (08:10→20:04)
[2018-01-04] MEDS: ALLOPURINOL 100 MG TAB PO (08:11)
[2018-01-04] MEDS: LUBIPROSTONE 24 MCG CAP PO ×2 (08:11→20:04)
[2018-01-04] MEDS: DOXYCYCLINE 100 MG TAB PO (08:11)
[2018-01-04] MEDS: FOLIC ACID 1 MG TAB PO (08:11)
[2018-01-04] MEDS: NICOTINE (14 MG/24 HR) PATCH TRANSDERM (08:12)
[2018-01-04] MEDS: ISOSORBIDE DINITRATE 10 MG TAB PO ×3 (08:12→20:04)
[2018-01-04] MEDS: METOPROLOL (XL) 100 MG TAB PO (08:12)
[2018-01-04] MEDS ORDERED: VANCOMYCIN IV PER PHARMACY XX (11:00)
[2018-01-04] MEDS: SOD CHLORIDE 0.9% 250 ML IV* (11:53)
[2018-01-04 11:54] LABS: RETICULOCYTE RBC 2.89
[2018-01-04 11:54] LABS: RETICULOCYTE COUNT # 0.109 X10^6 (0.020-0.110); RETICULOCYTE COUNT % 3.8 % (0.5-1.5)
[2018-01-04] MEDS: MEROPENEM 500MG/50 ML (PMX) 50 ML IVPB (13:00)
[2018-01-04 13:12] LABS: FOLATE > 20.0 ng/ml (2.8-20.0)
[2018-01-04] MEDS: VANCOMYCIN 2 GM in SOD CHLORIDE 0.9% 500 ML IVPB (13:58)
[2018-01-04] MEDS: DOCUSATE SODIUM 100 MG CAP PO (20:04)
[2018-01-04] MEDS: TAMSULOSIN (SR) 0.4 MG CAP PO (20:04)
[2018-01-04 21:10] LABS: IMMEDIATE SPIN CROSSMATCH 1 1
[2018-01-04 22:32] LABS: OCCULT BLOOD STOOL NEGATIVE (NEGATIVE)
[2018-01-05] MEDS: MEROPENEM 1 GM/50ML(PMX) 50 ML IVPB ×4 (00:58→22:18)
[2018-01-05] MEDS: oxyCODONE 5 MG TAB PO ×4 (01:57→23:53)
[2018-01-05] MEDS: HYDROmorphONE 0.5 MG/0.5 ML SYG IV ×4 (04:06→22:19)
[2018-01-05] MEDS: LEVOTHYROXINE 100 MCG TAB PO (05:41)
[2018-01-05] MEDS: LORAZEPAM 0.5 MG TAB PO ×3 (05:41→23:50)
[2018-01-05] MEDS: FUROSEMIDE 20 MG TAB PO ×2 (05:43→17:55)
[2018-01-05 06:04] LABS: ADD MAN DIFF? NO
[2018-01-05 06:06] LABS: WHITE BLOOD COUNT 21.1 10^3/ul (4.8-10.8)
[2018-01-05 06:06] LABS: ABNORMAL IP MESSAGE 1; BASOPHIL # 0.2 10^3/ul (0.0-0.1); BASOPHILS % 0.8 % (0.0-2.0); EOSINOPHILS # 0.6 10^3/ul (0.0-0.5); EOSINOPHILS % 2.7 % (0.0-7.0); HEMATOCRIT 27.6 % (42.0-52.0); HEMOGLOBIN 8.7 g/dl (14.0-18.0); LYMPHOCYTES % 4.8 % (15.0-51.0); MEAN CORPUSCULAR HEMOGLOBIN 26.4 pg (29.0-33.0); MEAN CORPUSCULAR HGB CONC 31.5 g/dl (32.0-37.0); MEAN CORPUSCULAR VOLUME 83.6 fl (82.0-101.0); MEAN PLATELET VOLUME 12.6 fl (7.4-10.4); MONOCYTE # 2.8 10^3/ul (0.3-0.9); MONOCYTES % 13.2 % (0.0-11.0); NEUTROPHIL # 16.1 10^3/ul (1.6-7.5); NEUTROPHILS % 76.2 % (39.0-77.0); PLATELET COUNT 490 10^3/UL (140-415); POSITIVE DIFF @See below; RED CELL DISTRIBUTION WIDTH 19.6 % (11.5-14.5)
[2018-01-05 06:50] LABS: ALANINE AMINOTRANSFERASE 30 IU/L (13-69); ALBUMIN 2.7 g/dl (3.3-4.9); ALBUMIN/GLOBULIN RATIO 0.84; ALKALINE PHOSPHATASE 156 IU/L (42-121); ANION GAP 11 (8-16); ASPARTATE AMINO TRANSFERASE 57 IU/L (15-46); BILIRUBIN,INDIRECT 0.6 mg/dl (0-1.1); BILIRUBIN,TOTAL 0.6 mg/dl (0.2-1.3); BLOOD UREA NITROGEN 19 mg/dl (7-20); CARBON DIOXIDE 26 mmol/L (21-31); CHLORIDE 106 mmol/L (97-110); CREATININE 1.67 mg/dl (0.61-1.24); GLUCOSE 88 mg/dl (70-220); SODIUM 139 mmol/L (135-144); TOTAL PROTEIN 5.9 g/dl (6.1-8.1)
[2018-01-05] MEDS: FERROUS SULFATE (EC) 325 MG TAB PO ×2 (08:13→20:33)
[2018-01-05] MEDS: FOLIC ACID 1 MG TAB PO (08:13)
[2018-01-05] MEDS: LUBIPROSTONE 24 MCG CAP PO ×2 (08:13→20:33)
[2018-01-05] MEDS: ISOSORBIDE DINITRATE 10 MG TAB PO ×3 (08:13→20:34)
[2018-01-05] MEDS: ALLOPURINOL 100 MG TAB PO (08:14)
[2018-01-05] MEDS: METOPROLOL (XL) 100 MG TAB PO (08:14)
[2018-01-05] MEDS: NICOTINE (14 MG/24 HR) PATCH TRANSDERM (08:18)
[2018-01-05] MEDS ORDERED: VANCOMYCIN 1 GM 250 ML IVPB (14:00)
[2018-01-05] MEDS: VANCOMYCIN 1 GM 250 ML IVPB (16:31)
[2018-01-05] MEDS: DOCUSATE SODIUM 100 MG CAP PO (20:33)
[2018-01-05] MEDS: TAMSULOSIN (SR) 0.4 MG CAP PO (20:33)
[2018-01-06] MEDS: ALBUTEROL/IPRATROPIUM (NEB) 3 ML AMP HHN (01:43)
[2018-01-06] MEDS: HYDROmorphONE 0.5 MG/0.5 ML SYG IV ×5 (02:34→21:10)
[2018-01-06 05:33] LABS: ADD MAN DIFF? NO
[2018-01-06 05:54] LABS: ABNORMAL IP MESSAGE 1; BASOPHIL # 0.2 10^3/ul (0.0-0.1); BASOPHILS % 0.8 % (0.0-2.0); EOSINOPHILS # 0.5 10^3/ul (0.0-0.5); EOSINOPHILS % 2.8 % (0.0-7.0); HEMATOCRIT 24.2 % (42.0-52.0); HEMOGLOBIN 7.6 g/dl (14.0-18.0); LYMPHOCYTES # 0.9 10^3/ul (0.8-2.9); LYMPHOCYTES % 5.1 % (15.0-51.0); MEAN CORPUSCULAR HEMOGLOBIN 26.1 pg (29.0-33.0); MEAN CORPUSCULAR HGB CONC 31.4 g/dl (32.0-37.0); MEAN CORPUSCULAR VOLUME 83.2 fl (82.0-101.0); MEAN PLATELET VOLUME 12.6 fl (7.4-10.4); MONOCYTE # 2.2 10^3/ul (0.3-0.9); MONOCYTES % 12.2 % (0.0-11.0); NEUTROPHIL # 14.2 10^3/ul (1.6-7.5); NEUTROPHILS % 77.3 % (39.0-77.0); PLATELET COUNT 419 10^3/UL (140-415); POSITIVE DIFF @See below; RED BLOOD COUNT 2.91 10^6/ul (4.70-6.10); RED CELL DISTRIBUTION WIDTH 19.6 % (11.5-14.5)
[2018-01-06 05:54] LABS: WHITE BLOOD COUNT 18.4 10^3/ul (4.8-10.8)
[2018-01-06] MEDS: LEVOTHYROXINE 100 MCG TAB PO (06:05)
[2018-01-06] MEDS: MEROPENEM 1 GM/50ML(PMX) 50 ML IVPB ×3 (06:05→21:10)
[2018-01-06] MEDS: FUROSEMIDE 20 MG TAB PO ×2 (06:05→18:06)
[2018-01-06] MEDS: oxyCODONE 5 MG TAB PO ×4 (06:06→23:14)
[2018-01-06 06:31] LABS: ANION GAP 9 (8-16); BLOOD UREA NITROGEN 21 mg/dl (7-20); CALCIUM 7.6 mg/dl (8.4-10.2); CARBON DIOXIDE 25 mmol/L (21-31); CHLORIDE 109 mmol/L (97-110); CREATININE 1.72 mg/dl (0.61-1.24); GLUCOSE 90 mg/dl (70-220); POTASSIUM 3.6 mmol/L (3.5-5.1); SODIUM 139 mmol/L (135-144)
[2018-01-06] MEDS: ALLOPURINOL 100 MG TAB PO (08:03)
[2018-01-06] MEDS: NICOTINE (14 MG/24 HR) PATCH TRANSDERM (08:03)
[2018-01-06] MEDS: LUBIPROSTONE 24 MCG CAP PO ×2 (08:03→20:43)
[2018-01-06] MEDS: METOPROLOL (XL) 100 MG TAB PO (08:03)
[2018-01-06] MEDS: FOLIC ACID 1 MG TAB PO (08:03)
[2018-01-06] MEDS: ISOSORBIDE DINITRATE 10 MG TAB PO ×3 (08:03→20:46)
[2018-01-06] MEDS: FERROUS SULFATE (EC) 325 MG TAB PO ×2 (08:03→20:42)
[2018-01-06] MEDS: LORAZEPAM 0.5 MG TAB PO ×2 (12:03→18:06)
[2018-01-06] MEDS: VANCOMYCIN 1 GM 250 ML IVPB (17:05)
[2018-01-06] MEDS: CASPOFUNGIN 70 MG in SOD CHLORIDE 0.9% 250 ML IVPB (19:00)
[2018-01-06] MEDS: TAMSULOSIN (SR) 0.4 MG CAP PO (20:42)
[2018-01-06] MEDS: DOCUSATE SODIUM 100 MG CAP PO (20:42)
[2018-01-07] MEDS: HYDROmorphONE 0.5 MG/0.5 ML SYG IV ×5 (01:24→22:20)
[2018-01-07] MEDS: oxyCODONE 5 MG TAB PO ×3 (04:23→23:33)
[2018-01-07] MEDS: LORAZEPAM 0.5 MG TAB PO ×3 (04:25→20:41)
[2018-01-07] MEDS: MEROPENEM 1 GM/50ML(PMX) 50 ML IVPB ×3 (05:56→22:20)
[2018-01-07] MEDS: LEVOTHYROXINE 100 MCG TAB PO (05:59)
[2018-01-07] MEDS: FUROSEMIDE 20 MG TAB PO (06:03)
[2018-01-07] MEDS: FOLIC ACID 1 MG TAB PO (09:10)
[2018-01-07] MEDS: FERROUS SULFATE (EC) 325 MG TAB PO ×2 (09:11→20:41)
[2018-01-07] MEDS: ALLOPURINOL 100 MG TAB PO (09:11)
[2018-01-07] MEDS: LUBIPROSTONE 24 MCG CAP PO ×2 (09:11→20:42)
[2018-01-07] MEDS: METOPROLOL (XL) 100 MG TAB PO (09:11)
[2018-01-07] MEDS: ISOSORBIDE DINITRATE 10 MG TAB PO ×3 (09:12→20:42)
[2018-01-07] MEDS: NICOTINE (14 MG/24 HR) PATCH TRANSDERM (09:13)
[2018-01-07 10:45] LABS: ADD MAN DIFF? NO
[2018-01-07 10:48] LABS: ABNORMAL IP MESSAGE 1; BASOPHIL # 0.2 10^3/ul (0.0-0.1); BASOPHILS % 1.1 % (0.0-2.0); EOSINOPHILS % 5.4 % (0.0-7.0); HEMATOCRIT 25.9 % (42.0-52.0); LYMPHOCYTES # 0.8 10^3/ul (0.8-2.9); LYMPHOCYTES % 4.1 % (15.0-51.0); MEAN CORPUSCULAR HEMOGLOBIN 25.6 pg (29.0-33.0); MEAN CORPUSCULAR HGB CONC 30.9 g/dl (32.0-37.0); MEAN PLATELET VOLUME 12.2 fl (7.4-10.4); MONOCYTE # 2.1 10^3/ul (0.3-0.9); MONOCYTES % 11.3 % (0.0-11.0); NEUTROPHIL # 14.2 10^3/ul (1.6-7.5); NEUTROPHILS % 76.1 % (39.0-77.0); PLATELET COUNT 501 10^3/UL (140-415); POSITIVE DIFF @See below; RED BLOOD COUNT 3.12 10^6/ul (4.70-6.10); RED CELL DISTRIBUTION WIDTH 19.4 % (11.5-14.5)
[2018-01-07 10:48] LABS: WHITE BLOOD COUNT 18.6 10^3/ul (4.8-10.8)
[2018-01-07 11:37] LABS: ANION GAP 11 (8-16); BLOOD UREA NITROGEN 20 mg/dl (7-20); CALCIUM 7.7 mg/dl (8.4-10.2); CARBON DIOXIDE 24 mmol/L (21-31); CHLORIDE 108 mmol/L (97-110); CREATININE 1.67 mg/dl (0.61-1.24); GLUCOSE 87 mg/dl (70-220); POTASSIUM 3.8 mmol/L (3.5-5.1); SODIUM 139 mmol/L (135-144)
[2018-01-07] MEDS: FUROSEMIDE 20 MG INJ IV ×2 (12:46→20:42)
[2018-01-07] MEDS: ZYVOX 600 MG TAB PO ×2 (14:17→20:42)
[2018-01-07] MEDS: CASPOFUNGIN 50 MG in SOD CHLORIDE 0.9% 250 ML IVPB (18:19)
[2018-01-07] MEDS: TAMSULOSIN (SR) 0.4 MG CAP PO (20:41)
[2018-01-07] MEDS: DOCUSATE SODIUM 100 MG CAP PO (20:41)
[2018-01-07] MEDS: HEPARIN 5,000 UNIT/0.5 ML VIAL SC (20:45)
[2018-01-08] MEDS: HYDROmorphONE 0.5 MG/0.5 ML SYG IV ×5 (02:30→21:23)
[2018-01-08] MEDS: oxyCODONE 5 MG TAB PO ×4 (04:32→18:56)
[2018-01-08] MEDS: LORAZEPAM 0.5 MG TAB PO ×3 (04:34→17:58)
[2018-01-08] MEDS: MEROPENEM 1 GM/50ML(PMX) 50 ML IVPB ×3 (05:24→21:08)
[2018-01-08] MEDS: LEVOTHYROXINE 100 MCG TAB PO (05:25)
[2018-01-08 05:49] LABS: ADD MAN DIFF? NO
[2018-01-08 06:10] LABS: ABNORMAL IP MESSAGE 1; BASOPHIL # 0.2 10^3/ul (0.0-0.1); EOSINOPHILS # 1.4 10^3/ul (0.0-0.5); EOSINOPHILS % 6.9 % (0.0-7.0); LYMPHOCYTES % 4.7 % (15.0-51.0); MEAN CORPUSCULAR HEMOGLOBIN 26.1 pg (29.0-33.0); MEAN CORPUSCULAR VOLUME 84.1 fl (82.0-101.0); MEAN PLATELET VOLUME 12.1 fl (7.4-10.4); MONOCYTE # 1.8 10^3/ul (0.3-0.9); MONOCYTES % 9.2 % (0.0-11.0); NEUTROPHIL # 15.3 10^3/ul (1.6-7.5); PLATELET COUNT 638 10^3/UL (140-415); POSITIVE DIFF @See below; RED BLOOD COUNT 3.45 10^6/ul (4.70-6.10); RED CELL DISTRIBUTION WIDTH 19.3 % (11.5-14.5)
[2018-01-08 06:10] LABS: WHITE BLOOD COUNT 20.1 10^3/ul (4.8-10.8)
[2018-01-08 06:28] LABS: ANION GAP 13 (8-16); BLOOD UREA NITROGEN 20 mg/dl (7-20); CALCIUM 8.1 mg/dl (8.4-10.2); CARBON DIOXIDE 23 mmol/L (21-31); CHLORIDE 109 mmol/L (97-110); CREATININE 1.72 mg/dl (0.61-1.24); GLUCOSE 81 mg/dl (70-220); POTASSIUM 3.7 mmol/L (3.5-5.1); SODIUM 141 mmol/L (135-144)
[2018-01-08] MEDS: ALLOPURINOL 100 MG TAB PO (08:32)
[2018-01-08] MEDS: NICOTINE (14 MG/24 HR) PATCH TRANSDERM (08:32)
[2018-01-08] MEDS: LUBIPROSTONE 24 MCG CAP PO ×2 (08:32→20:48)
[2018-01-08] MEDS: ISOSORBIDE DINITRATE 10 MG TAB PO ×3 (08:32→20:53)
[2018-01-08] MEDS: FERROUS SULFATE (EC) 325 MG TAB PO ×2 (08:33→20:53)
[2018-01-08] MEDS: FUROSEMIDE 20 MG INJ IV (08:33)
[2018-01-08] MEDS: FOLIC ACID 1 MG TAB PO (08:33)
[2018-01-08] MEDS: METOPROLOL (XL) 100 MG TAB PO (08:33)
[2018-01-08] MEDS: ZYVOX 600 MG TAB PO ×2 (08:33→20:52)
[2018-01-08] MEDS: HEPARIN 5,000 UNIT/0.5 ML VIAL SC ×2 (08:34→20:52)
[2018-01-08] MEDS: FUROSEMIDE 40 MG INJ IV ×2 (10:30→17:57)
[2018-01-08] MEDS: ALBUTEROL/IPRATROPIUM (NEB) 3 ML AMP HHN ×2 (12:05→23:26)
[2018-01-08] MEDS: CASPOFUNGIN 50 MG in SOD CHLORIDE 0.9% 250 ML IVPB (18:07)
[2018-01-08] MEDS: DOCUSATE SODIUM 100 MG CAP PO (20:53)
[2018-01-08] MEDS: TAMSULOSIN (SR) 0.4 MG CAP PO (20:53)
[2018-01-09] MEDS: LORAZEPAM 0.5 MG TAB PO ×3 (00:11→17:38)
[2018-01-09] MEDS: HYDROmorphONE 0.5 MG/0.5 ML SYG IV ×5 (01:52→19:31)
[2018-01-09] MEDS: oxyCODONE 5 MG TAB PO ×4 (03:33→21:43)
[2018-01-09] MEDS: LEVOTHYROXINE 100 MCG TAB PO (05:09)
[2018-01-09] MEDS: FUROSEMIDE 40 MG INJ IV ×2 (05:10→17:37)
[2018-01-09] MEDS: MEROPENEM 1 GM/50ML(PMX) 50 ML IVPB ×3 (05:11→21:14)
[2018-01-09 05:52] LABS: ADD MAN DIFF? NO
[2018-01-09 06:00] LABS: ABNORMAL IP MESSAGE 1; BASOPHIL # 0.3 10^3/ul (0.0-0.1); BASOPHILS % 1.4 % (0.0-2.0); EOSINOPHILS # 1.7 10^3/ul (0.0-0.5); EOSINOPHILS % 8.8 % (0.0-7.0); HEMATOCRIT 27.9 % (42.0-52.0); HEMOGLOBIN 8.8 g/dl (14.0-18.0); MEAN CORPUSCULAR HGB CONC 31.5 g/dl (32.0-37.0); MEAN CORPUSCULAR VOLUME 82.5 fl (82.0-101.0); MONOCYTES % 10.4 % (0.0-11.0); NEUTROPHIL # 13.9 10^3/ul (1.6-7.5); NEUTROPHILS % 72.2 % (39.0-77.0); PLATELET COUNT 610 10^3/UL (140-415); POSITIVE DIFF @See below; RED BLOOD COUNT 3.38 10^6/ul (4.70-6.10); RED CELL DISTRIBUTION WIDTH 19.1 % (11.5-14.5)
[2018-01-09 06:00] LABS: WHITE BLOOD COUNT 19.2 10^3/ul (4.8-10.8)
[2018-01-09 06:31] LABS: ANION GAP 12 (8-16); BLOOD UREA NITROGEN 18 mg/dl (7-20); CALCIUM 8.1 mg/dl (8.4-10.2); CARBON DIOXIDE 23 mmol/L (21-31); CHLORIDE 109 mmol/L (97-110); CREATININE 1.68 mg/dl (0.61-1.24); GLUCOSE 80 mg/dl (70-220); POTASSIUM 3.8 mmol/L (3.5-5.1); SODIUM 140 mmol/L (135-144)
[2018-01-09] MEDS: NICOTINE (14 MG/24 HR) PATCH TRANSDERM (08:18)
[2018-01-09] MEDS: LUBIPROSTONE 24 MCG CAP PO ×2 (08:19→20:20)
[2018-01-09] MEDS: METOPROLOL (XL) 100 MG TAB PO (08:19)
[2018-01-09] MEDS: FERROUS SULFATE (EC) 325 MG TAB PO ×2 (08:19→20:21)
[2018-01-09] MEDS: ISOSORBIDE DINITRATE 10 MG TAB PO ×3 (08:20→20:21)
[2018-01-09] MEDS: ALLOPURINOL 100 MG TAB PO (08:20)
[2018-01-09] MEDS: ZYVOX 600 MG TAB PO ×2 (08:20→20:21)
[2018-01-09] MEDS: FOLIC ACID 1 MG TAB PO (08:20)
[2018-01-09] MEDS: HEPARIN 5,000 UNIT/0.5 ML VIAL SC ×2 (08:22→20:26)
[2018-01-09] MEDS: CASPOFUNGIN 50 MG in SOD CHLORIDE 0.9% 250 ML IVPB (17:40)
[2018-01-09] MEDS: DOCUSATE SODIUM 100 MG CAP PO (20:20)
[2018-01-09] MEDS: TAMSULOSIN (SR) 0.4 MG CAP PO (20:20)
[2018-01-10] MEDS: HYDROmorphONE 0.5 MG/0.5 ML SYG IV ×5 (00:32→20:26)
[2018-01-10] MEDS: oxyCODONE 5 MG TAB PO ×4 (02:43→21:58)
[2018-01-10] MEDS: LORAZEPAM 0.5 MG TAB PO ×4 (03:16→23:48)
[2018-01-10] MEDS: MEROPENEM 1 GM/50ML(PMX) 50 ML IVPB ×3 (05:12→21:53)
[2018-01-10] MEDS: FUROSEMIDE 40 MG INJ IV (05:12)
[2018-01-10] MEDS: LEVOTHYROXINE 100 MCG TAB PO (05:12)
[2018-01-10 06:12] LABS: ADD MAN DIFF? NO
[2018-01-10 06:27] LABS: ABNORMAL IP MESSAGE 1; BASOPHIL # 0.3 10^3/ul (0.0-0.1); BASOPHILS % 1.8 % (0.0-2.0); EOSINOPHILS # 1.7 10^3/ul (0.0-0.5); HEMATOCRIT 26.4 % (42.0-52.0); HEMOGLOBIN 8.3 g/dl (14.0-18.0); LYMPHOCYTES % 6.4 % (15.0-51.0); MEAN CORPUSCULAR HEMOGLOBIN 25.9 pg (29.0-33.0); MEAN CORPUSCULAR HGB CONC 31.4 g/dl (32.0-37.0); MEAN CORPUSCULAR VOLUME 82.2 fl (82.0-101.0); MEAN PLATELET VOLUME 11.8 fl (7.4-10.4); MONOCYTE # 1.8 10^3/ul (0.3-0.9); MONOCYTES % 11.7 % (0.0-11.0); NEUTROPHIL # 10.2 10^3/ul (1.6-7.5); NEUTROPHILS % 66.4 % (39.0-77.0); PLATELET COUNT 580 10^3/UL (140-415); POSITIVE DIFF @See below; RED BLOOD COUNT 3.21 10^6/ul (4.70-6.10); RED CELL DISTRIBUTION WIDTH 19.1 % (11.5-14.5)
[2018-01-10 06:27] LABS: WHITE BLOOD COUNT 15.4 10^3/ul (4.8-10.8)
[2018-01-10 06:46] LABS: ANION GAP 10 (8-16); BLOOD UREA NITROGEN 16 mg/dl (7-20); CALCIUM 7.8 mg/dl (8.4-10.2); CARBON DIOXIDE 24 mmol/L (21-31); CHLORIDE 109 mmol/L (97-110); CREATININE 1.71 mg/dl (0.61-1.24); GLUCOSE 73 mg/dl (70-220); POTASSIUM 3.6 mmol/L (3.5-5.1); SODIUM 139 mmol/L (135-144)
[2018-01-10] MEDS: HEPARIN 5,000 UNIT/0.5 ML VIAL SC ×2 (09:00→20:35)
[2018-01-10] MEDS: FOLIC ACID 1 MG TAB PO (09:03)
[2018-01-10] MEDS: LUBIPROSTONE 24 MCG CAP PO ×2 (09:03→20:30)
[2018-01-10] MEDS: METOPROLOL (XL) 100 MG TAB PO (09:03)
[2018-01-10] MEDS: ZYVOX 600 MG TAB PO ×2 (09:03→20:31)
[2018-01-10] MEDS: ISOSORBIDE DINITRATE 10 MG TAB PO ×3 (09:03→20:31)
[2018-01-10] MEDS: FERROUS SULFATE (EC) 325 MG TAB PO ×2 (09:04→20:30)
[2018-01-10] MEDS: ALLOPURINOL 100 MG TAB PO (09:04)
[2018-01-10] MEDS: NICOTINE (14 MG/24 HR) PATCH TRANSDERM (09:10)
[2018-01-10] MEDS: CASPOFUNGIN 50 MG in SOD CHLORIDE 0.9% 250 ML IVPB (17:46)
[2018-01-10] MEDS: FUROSEMIDE 20 MG INJ IV (17:56)
[2018-01-10] MEDS: TAMSULOSIN (SR) 0.4 MG CAP PO (20:30)
[2018-01-10] MEDS: DOCUSATE SODIUM 100 MG CAP PO (20:31)
[2018-01-11] MEDS: HYDROmorphONE 0.5 MG/0.5 ML SYG IV ×6 (00:28→22:40)
[2018-01-11] MEDS: oxyCODONE 5 MG TAB PO ×4 (02:04→21:28)
[2018-01-11] MEDS: FUROSEMIDE 20 MG INJ IV ×2 (05:57→18:17)
[2018-01-11] MEDS: LEVOTHYROXINE 100 MCG TAB PO (05:58)
[2018-01-11] MEDS: LORAZEPAM 0.5 MG TAB PO ×2 (05:58→14:56)
[2018-01-11 05:59] LABS: ADD MAN DIFF? NO
[2018-01-11 06:03] LABS: WHITE BLOOD COUNT 17.2 10^3/ul (4.8-10.8)
[2018-01-11 06:03] LABS: ABNORMAL IP MESSAGE 1; BASOPHIL # 0.3 10^3/ul (0.0-0.1); BASOPHILS % 1.8 % (0.0-2.0); EOSINOPHILS # 1.9 10^3/ul (0.0-0.5); HEMATOCRIT 30.6 % (42.0-52.0); HEMOGLOBIN 9.5 g/dl (14.0-18.0); LYMPHOCYTES # 1.1 10^3/ul (0.8-2.9); LYMPHOCYTES % 6.3 % (15.0-51.0); MEAN CORPUSCULAR HEMOGLOBIN 25.5 pg (29.0-33.0); MEAN PLATELET VOLUME 11.6 fl (7.4-10.4); MONOCYTE # 1.9 10^3/ul (0.3-0.9); MONOCYTES % 10.9 % (0.0-11.0); NEUTROPHIL # 11.4 10^3/ul (1.6-7.5); NEUTROPHILS % 66.3 % (39.0-77.0); PLATELET COUNT 700 10^3/UL (140-415); POSITIVE DIFF @See below; RED BLOOD COUNT 3.73 10^6/ul (4.70-6.10); RED CELL DISTRIBUTION WIDTH 19.3 % (11.5-14.5)
[2018-01-11] MEDS: MEROPENEM 1 GM/50ML(PMX) 50 ML IVPB ×3 (06:07→21:29)
[2018-01-11 06:32] LABS: ANION GAP 12 (8-16); BLOOD UREA NITROGEN 16 mg/dl (7-20); CALCIUM 8.1 mg/dl (8.4-10.2); CARBON DIOXIDE 23 mmol/L (21-31); CHLORIDE 110 mmol/L (97-110); GLUCOSE 79 mg/dl (70-220); SODIUM 141 mmol/L (135-144)
[2018-01-11] MEDS: LUBIPROSTONE 24 MCG CAP PO ×2 (08:27→21:25)
[2018-01-11] MEDS: ZYVOX 600 MG TAB PO ×2 (08:27→21:24)
[2018-01-11] MEDS: ISOSORBIDE DINITRATE 10 MG TAB PO ×3 (08:27→21:25)
[2018-01-11] MEDS: METOPROLOL (XL) 100 MG TAB PO (08:27)
[2018-01-11] MEDS: FERROUS SULFATE (EC) 325 MG TAB PO ×2 (08:27→21:25)
[2018-01-11] MEDS: NICOTINE (14 MG/24 HR) PATCH TRANSDERM (08:28)
[2018-01-11] MEDS: ALLOPURINOL 100 MG TAB PO (08:28)
[2018-01-11] MEDS: FOLIC ACID 1 MG TAB PO (08:28)
[2018-01-11] MEDS: HEPARIN 5,000 UNIT/0.5 ML VIAL SC ×2 (08:32→21:27)
[2018-01-11] MEDS: CASPOFUNGIN 50 MG in SOD CHLORIDE 0.9% 250 ML IVPB (18:18)
[2018-01-11] MEDS: TAMSULOSIN (SR) 0.4 MG CAP PO (21:25)
[2018-01-11] MEDS: DOCUSATE SODIUM 100 MG CAP PO (21:25)
[2018-01-12] MEDS: oxyCODONE 5 MG TAB PO ×3 (01:51→23:21)
[2018-01-12] MEDS: HYDROmorphONE 0.5 MG/0.5 ML SYG IV ×5 (03:10→20:04)
[2018-01-12] MEDS: MEROPENEM 1 GM/50ML(PMX) 50 ML IVPB ×3 (05:41→21:35)
[2018-01-12] MEDS: LEVOTHYROXINE 100 MCG TAB PO (05:42)
[2018-01-12] MEDS: FUROSEMIDE 20 MG INJ IV ×2 (05:43→18:39)
[2018-01-12] MEDS: LORAZEPAM 0.5 MG TAB PO (05:56)
[2018-01-12 06:08] LABS: ADD MAN DIFF? NO
[2018-01-12 06:13] LABS: BASOPHIL # 0.2 10^3/ul (0.0-0.1); BASOPHILS % 1.7 % (0.0-2.0); EOSINOPHILS # 1.3 10^3/ul (0.0-0.5); EOSINOPHILS % 9.5 % (0.0-7.0); HEMATOCRIT 29.4 % (42.0-52.0); HEMOGLOBIN 9.1 g/dl (14.0-18.0); LYMPHOCYTES % 7.4 % (15.0-51.0); MEAN CORPUSCULAR HEMOGLOBIN 25.6 pg (29.0-33.0); MEAN CORPUSCULAR VOLUME 82.6 fl (82.0-101.0); MEAN PLATELET VOLUME 11.6 fl (7.4-10.4); MONOCYTE # 1.5 10^3/ul (0.3-0.9); MONOCYTES % 10.4 % (0.0-11.0); NEUTROPHIL # 9.4 10^3/ul (1.6-7.5); NEUTROPHILS % 67.2 % (39.0-77.0); PLATELET COUNT 573 10^3/UL (140-415); RED BLOOD COUNT 3.56 10^6/ul (4.70-6.10); RED CELL DISTRIBUTION WIDTH 18.9 % (11.5-14.5)
[2018-01-12 06:13] LABS: WHITE BLOOD COUNT 13.9 10^3/ul (4.8-10.8)
[2018-01-12 06:41] LABS: ANION GAP 10 (8-16); BLOOD UREA NITROGEN 16 mg/dl (7-20); CALCIUM 7.9 mg/dl (8.4-10.2); CARBON DIOXIDE 23 mmol/L (21-31); CHLORIDE 112 mmol/L (97-110); CREATININE 1.86 mg/dl (0.61-1.24); GLUCOSE 76 mg/dl (70-220); SODIUM 141 mmol/L (135-144)
[2018-01-12] MEDS: ZYVOX 600 MG TAB PO ×2 (08:38→21:30)
[2018-01-12] MEDS: LUBIPROSTONE 24 MCG CAP PO ×2 (08:38→21:34)
[2018-01-12] MEDS: FOLIC ACID 1 MG TAB PO (08:39)
[2018-01-12] MEDS: ISOSORBIDE DINITRATE 10 MG TAB PO ×3 (08:39→21:30)
[2018-01-12] MEDS: METOPROLOL (XL) 100 MG TAB PO (08:39)
[2018-01-12] MEDS: FERROUS SULFATE (EC) 325 MG TAB PO ×2 (08:39→21:30)
[2018-01-12] MEDS: ALLOPURINOL 100 MG TAB PO (08:39)
[2018-01-12] MEDS: NICOTINE (14 MG/24 HR) PATCH TRANSDERM (08:40)
[2018-01-12] MEDS: HEPARIN 5,000 UNIT/0.5 ML VIAL SC ×2 (08:43→21:34)
[2018-01-12] MEDS: DOCUSATE SODIUM 100 MG CAP PO (21:30)
[2018-01-12] MEDS: TAMSULOSIN (SR) 0.4 MG CAP PO (21:30)
[2018-01-13] MEDS: HYDROmorphONE 0.5 MG/0.5 ML SYG IV ×6 (00:10→21:18)
[2018-01-13] MEDS: FUROSEMIDE 20 MG INJ IV (06:09)
[2018-01-13] MEDS: MEROPENEM 1 GM/50ML(PMX) 50 ML IVPB ×2 (06:09→15:07)
[2018-01-13] MEDS: LEVOTHYROXINE 100 MCG TAB PO (06:11)
[2018-01-13 06:39] LABS: ANION GAP 10 (8-16); BLOOD UREA NITROGEN 16 mg/dl (7-20); CALCIUM 7.9 mg/dl (8.4-10.2); CARBON DIOXIDE 23 mmol/L (21-31); CHLORIDE 111 mmol/L (97-110); CREATININE 1.75 mg/dl (0.61-1.24); GLUCOSE 86 mg/dl (70-220); POTASSIUM 3.9 mmol/L (3.5-5.1); SODIUM 140 mmol/L (135-144)
[2018-01-13] MEDS: ALLOPURINOL 100 MG TAB PO (08:12)
[2018-01-13] MEDS: NICOTINE (14 MG/24 HR) PATCH TRANSDERM (08:12)
[2018-01-13] MEDS: ZYVOX 600 MG TAB PO ×2 (08:12→21:11)
[2018-01-13] MEDS: LUBIPROSTONE 24 MCG CAP PO ×2 (08:12→21:10)
[2018-01-13] MEDS: FOLIC ACID 1 MG TAB PO (08:12)
[2018-01-13] MEDS: FERROUS SULFATE (EC) 325 MG TAB PO ×2 (08:12→21:10)
[2018-01-13] MEDS: METOPROLOL (XL) 100 MG TAB PO (08:13)
[2018-01-13] MEDS: ISOSORBIDE DINITRATE 10 MG TAB PO ×3 (08:13→21:11)
[2018-01-13] MEDS: HEPARIN 5,000 UNIT/0.5 ML VIAL SC ×2 (08:15→21:17)
[2018-01-13] MEDS: oxyCODONE 5 MG TAB PO ×2 (09:42→16:16)
[2018-01-13] MEDS: FUROSEMIDE 40 MG INJ IV (17:44)
[2018-01-13] MEDS: DOCUSATE SODIUM 100 MG CAP PO (21:11)
[2018-01-13] MEDS: TAMSULOSIN (SR) 0.4 MG CAP PO (21:11)
[2018-01-14] MEDS: oxyCODONE 5 MG TAB PO ×5 (00:23→22:43)
[2018-01-14] MEDS: HYDROmorphONE 0.5 MG/0.5 ML SYG IV ×3 (02:06→11:40)
[2018-01-14 05:48] LABS: ADD MAN DIFF? NO
[2018-01-14 06:04] LABS: WHITE BLOOD COUNT 10.2 10^3/ul (4.8-10.8)
[2018-01-14 06:04] LABS: BASOPHIL # 0.2 10^3/ul (0.0-0.1); BASOPHILS % 1.6 % (0.0-2.0); EOSINOPHILS % 9.4 % (0.0-7.0); HEMATOCRIT 28.4 % (42.0-52.0); HEMOGLOBIN 8.8 g/dl (14.0-18.0); LYMPHOCYTES # 0.7 10^3/ul (0.8-2.9); MEAN CORPUSCULAR HEMOGLOBIN 25.9 pg (29.0-33.0); MEAN CORPUSCULAR VOLUME 83.5 fl (82.0-101.0); MEAN PLATELET VOLUME 11.9 fl (7.4-10.4); NEUTROPHIL # 6.8 10^3/ul (1.6-7.5); NEUTROPHILS % 67.2 % (39.0-77.0); PLATELET COUNT 407 10^3/UL (140-415); RED CELL DISTRIBUTION WIDTH 18.8 % (11.5-14.5)
[2018-01-14 06:21] LABS: ANION GAP 10 (8-16); BLOOD UREA NITROGEN 17 mg/dl (7-20); CARBON DIOXIDE 24 mmol/L (21-31); CHLORIDE 111 mmol/L (97-110); CREATININE 1.83 mg/dl (0.61-1.24); GLUCOSE 75 mg/dl (70-220); POTASSIUM 4.1 mmol/L (3.5-5.1); SODIUM 141 mmol/L (135-144)
[2018-01-14] MEDS: LEVOFLOXACIN 250 MG TAB PO (06:41)
[2018-01-14] MEDS: FUROSEMIDE 40 MG INJ IV ×2 (06:41→17:50)
[2018-01-14] MEDS: LEVOTHYROXINE 100 MCG TAB PO (06:48)
[2018-01-14] MEDS: ZYVOX 600 MG TAB PO ×2 (08:50→20:26)
[2018-01-14] MEDS: FERROUS SULFATE (EC) 325 MG TAB PO ×2 (08:50→20:27)
[2018-01-14] MEDS: LORAZEPAM 0.5 MG TAB PO ×2 (08:50→15:05)
[2018-01-14] MEDS: FOLIC ACID 1 MG TAB PO (08:50)
[2018-01-14] MEDS: LUBIPROSTONE 24 MCG CAP PO ×2 (08:50→20:26)
[2018-01-14] MEDS: NICOTINE (14 MG/24 HR) PATCH TRANSDERM (08:50)
[2018-01-14] MEDS: ALLOPURINOL 100 MG TAB PO (08:51)
[2018-01-14] MEDS: ISOSORBIDE DINITRATE 10 MG TAB PO ×3 (08:51→20:28)
[2018-01-14] MEDS: METOPROLOL (XL) 100 MG TAB PO (08:51)
[2018-01-14] MEDS: HEPARIN 5,000 UNIT/0.5 ML VIAL SC ×2 (08:54→20:30)
[2018-01-14] MEDS: NA PHOSPHATE/BIPHOS 133 ML ENEMA PR (09:10)
[2018-01-14] MEDS: LACTULOSE 30ML CUP PO (10:03)
[2018-01-14] MEDS: HYDROmorphONE 2 MG/ML SYG IV ×3 (10:49→20:18)
[2018-01-14] MEDS: TAMSULOSIN (SR) 0.4 MG CAP PO (20:26)
[2018-01-14] MEDS: DOCUSATE SODIUM 100 MG CAP PO (20:26)
[2018-01-15] MEDS: HYDROmorphONE 2 MG/ML SYG IV ×6 (00:39→20:19)
[2018-01-15] MEDS: LORAZEPAM 0.5 MG TAB PO ×3 (02:38→23:52)
[2018-01-15] MEDS: oxyCODONE 5 MG TAB PO ×4 (03:36→22:03)
[2018-01-15 05:49] LABS: ADD MAN DIFF? NO
[2018-01-15 05:55] LABS: BASOPHIL # 0.2 10^3/ul (0.0-0.1); BASOPHILS % 1.6 % (0.0-2.0); EOSINOPHILS # 0.6 10^3/ul (0.0-0.5); EOSINOPHILS % 6.6 % (0.0-7.0); HEMATOCRIT 30.4 % (42.0-52.0); HEMOGLOBIN 9.4 g/dl (14.0-18.0); LYMPHOCYTES # 0.9 10^3/ul (0.8-2.9); LYMPHOCYTES % 9.4 % (15.0-51.0); MEAN CORPUSCULAR HEMOGLOBIN 25.8 pg (29.0-33.0); MEAN CORPUSCULAR HGB CONC 30.9 g/dl (32.0-37.0); MEAN CORPUSCULAR VOLUME 83.3 fl (82.0-101.0); MEAN PLATELET VOLUME 11.7 fl (7.4-10.4); MONOCYTE # 0.8 10^3/ul (0.3-0.9); MONOCYTES % 8.8 % (0.0-11.0); NEUTROPHIL # 6.7 10^3/ul (1.6-7.5); NEUTROPHILS % 70.1 % (39.0-77.0); PLATELET COUNT 368 10^3/UL (140-415); RED BLOOD COUNT 3.65 10^6/ul (4.70-6.10); RED CELL DISTRIBUTION WIDTH 18.6 % (11.5-14.5)
[2018-01-15 05:55] LABS: WHITE BLOOD COUNT 9.5 10^3/ul (4.8-10.8)
[2018-01-15] MEDS: LEVOTHYROXINE 100 MCG TAB PO (06:00)
[2018-01-15] MEDS: LEVOFLOXACIN 250 MG TAB PO (06:18)
[2018-01-15 06:20] LABS: ANION GAP 11 (8-16); BLOOD UREA NITROGEN 18 mg/dl (7-20); CALCIUM 8.2 mg/dl (8.4-10.2); CARBON DIOXIDE 23 mmol/L (21-31); CHLORIDE 112 mmol/L (97-110); CREATININE 1.86 mg/dl (0.61-1.24); GLUCOSE 88 mg/dl (70-220); POTASSIUM 4.3 mmol/L (3.5-5.1); SODIUM 142 mmol/L (135-144)
[2018-01-15] MEDS: FUROSEMIDE 40 MG INJ IV ×2 (06:21→17:41)
[2018-01-15] MEDS: ZYVOX 600 MG TAB PO ×2 (09:09→20:21)
[2018-01-15] MEDS: METOPROLOL (XL) 100 MG TAB PO (09:09)
[2018-01-15] MEDS: FERROUS SULFATE (EC) 325 MG TAB PO ×2 (09:09→20:21)
[2018-01-15] MEDS: LUBIPROSTONE 24 MCG CAP PO ×2 (09:09→20:19)
[2018-01-15] MEDS: ALLOPURINOL 100 MG TAB PO (09:10)
[2018-01-15] MEDS: ISOSORBIDE DINITRATE 10 MG TAB PO ×3 (09:10→20:20)
[2018-01-15] MEDS: FOLIC ACID 1 MG TAB PO (09:10)
[2018-01-15] MEDS: HEPARIN 5,000 UNIT/0.5 ML VIAL SC ×2 (09:14→09:30)
[2018-01-15] MEDS: NICOTINE (14 MG/24 HR) PATCH TRANSDERM (09:14)
[2018-01-15] MEDS: SODIUM HYPOCHLORITE 1/40% 1L IRRIG IRR ×2 (09:38→20:22)
[2018-01-15] MEDS: ONDANSETRON 4 MG INJ IV (10:40)
[2018-01-15] MEDS: DOCUSATE SODIUM 100 MG CAP PO (20:20)
[2018-01-15] MEDS: TAMSULOSIN (SR) 0.4 MG CAP PO (20:21)
[2018-01-15] MEDS: NA PHOSPHATE/BIPHOS 133 ML ENEMA PR (20:22)
[2018-01-16] MEDS: HYDROmorphONE 1 MG/ML SYG IV ×7 (00:23→23:47)
[2018-01-16] MEDS: oxyCODONE 5 MG TAB PO ×4 (02:56→20:15)
[2018-01-16] MEDS: LEVOFLOXACIN 250 MG TAB PO (05:57)
[2018-01-16] MEDS: LORAZEPAM 0.5 MG TAB PO ×2 (05:57→18:48)
[2018-01-16] MEDS: LEVOTHYROXINE 100 MCG TAB PO (05:57)
[2018-01-16] MEDS: FUROSEMIDE 40 MG INJ IV ×2 (05:58→18:37)
[2018-01-16 06:09] LABS: ADD MAN DIFF? NO
[2018-01-16 06:38] LABS: ANION GAP 13 (8-16); BASOPHIL # 0.2 10^3/ul (0.0-0.1); BASOPHILS % 1.4 % (0.0-2.0); BLOOD UREA NITROGEN 21 mg/dl (7-20); CALCIUM 8.1 mg/dl (8.4-10.2); CARBON DIOXIDE 22 mmol/L (21-31); CHLORIDE 110 mmol/L (97-110); CREATININE 1.85 mg/dl (0.61-1.24); EOSINOPHILS # 0.6 10^3/ul (0.0-0.5); EOSINOPHILS % 5.4 % (0.0-7.0); GLUCOSE 85 mg/dl (70-220); HEMATOCRIT 30.5 % (42.0-52.0); HEMOGLOBIN 9.3 g/dl (14.0-18.0); LYMPHOCYTES # 0.9 10^3/ul (0.8-2.9); LYMPHOCYTES % 7.8 % (15.0-51.0); MEAN CORPUSCULAR HEMOGLOBIN 25.3 pg (29.0-33.0); MEAN CORPUSCULAR HGB CONC 30.5 g/dl (32.0-37.0); MEAN CORPUSCULAR VOLUME 83.1 fl (82.0-101.0); MEAN PLATELET VOLUME 12.1 fl (7.4-10.4); MONOCYTE # 1.2 10^3/ul (0.3-0.9); MONOCYTES % 11.3 % (0.0-11.0); NEUTROPHIL # 7.8 10^3/ul (1.6-7.5); NEUTROPHILS % 70.6 % (39.0-77.0); NUCLEATED RED BLOOD CELLS% 0.2 /100WBC (0.0-0.0); PLATELET COUNT 362 10^3/UL (140-415); POTASSIUM 4.8 mmol/L (3.5-5.1); RED BLOOD COUNT 3.67 10^6/ul (4.70-6.10); RED CELL DISTRIBUTION WIDTH 18.6 % (11.5-14.5); SODIUM 140 mmol/L (135-144)
[2018-01-16] MEDS: ISOSORBIDE DINITRATE 10 MG TAB PO ×3 (08:47→20:16)
[2018-01-16] MEDS: ALLOPURINOL 100 MG TAB PO (08:47)
[2018-01-16] MEDS: METOPROLOL (XL) 100 MG TAB PO (08:47)
[2018-01-16] MEDS: FOLIC ACID 1 MG TAB PO (08:47)
[2018-01-16] MEDS: NICOTINE (14 MG/24 HR) PATCH TRANSDERM (08:47)
[2018-01-16] MEDS: ZYVOX 600 MG TAB PO ×2 (08:47→20:16)
[2018-01-16] MEDS: LUBIPROSTONE 24 MCG CAP PO ×2 (08:47→20:14)
[2018-01-16] MEDS: FERROUS SULFATE (EC) 325 MG TAB PO ×2 (08:47→20:16)
[2018-01-16] MEDS: HEPARIN 5,000 UNIT/0.5 ML VIAL SC ×2 (08:50→20:17)
[2018-01-16] MEDS: SODIUM HYPOCHLORITE 1/40% 1L IRRIG IRR ×2 (09:00→20:18)
[2018-01-16] MEDS: TAMSULOSIN (SR) 0.4 MG CAP PO (20:15)
[2018-01-16] MEDS: DOCUSATE SODIUM 100 MG CAP PO (20:16)
[2018-01-17] MEDS: oxyCODONE 5 MG TAB PO ×4 (00:39→20:40)
[2018-01-17] MEDS: LORAZEPAM 0.5 MG TAB PO (00:50)
[2018-01-17] MEDS: LEVOTHYROXINE 100 MCG TAB PO (05:33)
[2018-01-17] MEDS: HYDROmorphONE 1 MG/ML SYG IV ×5 (05:33→22:19)
[2018-01-17] MEDS: LEVOFLOXACIN 250 MG TAB PO (05:33)
[2018-01-17] MEDS: FUROSEMIDE 40 MG INJ IV ×2 (05:34→18:14)
[2018-01-17 05:46] LABS: ADD MAN DIFF? NO
[2018-01-17 05:56] LABS: BASOPHIL # 0.1 10^3/ul (0.0-0.1); BASOPHILS % 1.3 % (0.0-2.0); EOSINOPHILS # 0.3 10^3/ul (0.0-0.5); EOSINOPHILS % 4.6 % (0.0-7.0); HEMATOCRIT 26.7 % (42.0-52.0); HEMOGLOBIN 8.1 g/dl (14.0-18.0); LYMPHOCYTES # 0.7 10^3/ul (0.8-2.9); LYMPHOCYTES % 10.5 % (15.0-51.0); MEAN CORPUSCULAR HEMOGLOBIN 25.6 pg (29.0-33.0); MEAN CORPUSCULAR HGB CONC 30.3 g/dl (32.0-37.0); MEAN CORPUSCULAR VOLUME 84.5 fl (82.0-101.0); MEAN PLATELET VOLUME 12.1 fl (7.4-10.4); MONOCYTE # 0.7 10^3/ul (0.3-0.9); MONOCYTES % 11.5 % (0.0-11.0); NEUTROPHIL # 4.4 10^3/ul (1.6-7.5); NEUTROPHILS % 70.3 % (39.0-77.0); PLATELET COUNT 191 10^3/UL (140-415); RED BLOOD COUNT 3.16 10^6/ul (4.70-6.10); RED CELL DISTRIBUTION WIDTH 18.4 % (11.5-14.5)
[2018-01-17 05:56] LABS: WHITE BLOOD COUNT 6.3 10^3/ul (4.8-10.8)
[2018-01-17 06:00] LABS: ANION GAP 11 (8-16); BLOOD UREA NITROGEN 24 mg/dl (7-20); CARBON DIOXIDE 24 mmol/L (21-31); CHLORIDE 110 mmol/L (97-110); CREATININE 1.87 mg/dl (0.61-1.24); GLUCOSE 85 mg/dl (70-220); POTASSIUM 4.2 mmol/L (3.5-5.1); SODIUM 141 mmol/L (135-144)
[2018-01-17] MEDS: NICOTINE (14 MG/24 HR) PATCH TRANSDERM (08:29)
[2018-01-17] MEDS: ISOSORBIDE DINITRATE 10 MG TAB PO ×3 (08:29→20:40)
[2018-01-17] MEDS: LUBIPROSTONE 24 MCG CAP PO ×2 (08:29→20:39)
[2018-01-17] MEDS: FERROUS SULFATE (EC) 325 MG TAB PO ×2 (08:30→20:38)
[2018-01-17] MEDS: METOPROLOL (XL) 100 MG TAB PO (08:30)
[2018-01-17] MEDS: ALLOPURINOL 100 MG TAB PO (08:30)
[2018-01-17] MEDS: ZYVOX 600 MG TAB PO (08:30)
[2018-01-17] MEDS: FOLIC ACID 1 MG TAB PO (08:30)
[2018-01-17] MEDS: HEPARIN 5,000 UNIT/0.5 ML VIAL SC ×2 (08:32→20:46)
[2018-01-17] MEDS: SODIUM HYPOCHLORITE 1/40% 1L IRRIG IRR ×2 (09:00→20:37)
[2018-01-17] MEDS: DOXYCYCLINE 100 MG TAB PO (20:38)
[2018-01-17] MEDS: TAMSULOSIN (SR) 0.4 MG CAP PO (20:39)
[2018-01-17] MEDS: DOCUSATE SODIUM 100 MG CAP PO (20:39)
[2018-01-17] MEDS: AL HYDROX/MG HYDROX/SIMETH 30 ML CUP PO (21:54)
[2018-01-17] MEDS: ONDANSETRON 4 MG INJ IV (22:18)
[2018-01-17] MEDS: LACTULOSE 30ML CUP PO (22:24)
[2018-01-18] MEDS: oxyCODONE 5 MG TAB PO ×6 (00:57→23:44)
[2018-01-18] MEDS: HYDROmorphONE 1 MG/ML SYG IV ×5 (02:19→21:15)
[2018-01-18] MEDS: LORAZEPAM 0.5 MG TAB PO ×3 (03:21→18:44)
[2018-01-18] MEDS: LEVOTHYROXINE 100 MCG TAB PO (05:17)
[2018-01-18] MEDS: FUROSEMIDE 40 MG INJ IV ×2 (05:18→17:08)
[2018-01-18 05:37] LABS: ADD MAN DIFF? NO
[2018-01-18 05:45] LABS: ABNORMAL IP MESSAGE 1; BASOPHIL # 0.1 10^3/ul (0.0-0.1); BASOPHILS % 1.3 % (0.0-2.0); EOSINOPHILS # 0.2 10^3/ul (0.0-0.5); EOSINOPHILS % 3.6 % (0.0-7.0); HEMATOCRIT 25.7 % (42.0-52.0); LYMPHOCYTES # 0.5 10^3/ul (0.8-2.9); LYMPHOCYTES % 8.4 % (15.0-51.0); MEAN CORPUSCULAR HGB CONC 31.1 g/dl (32.0-37.0); MEAN CORPUSCULAR VOLUME 83.4 fl (82.0-101.0); MEAN PLATELET VOLUME 12.3 fl (7.4-10.4); MONOCYTE # 0.8 10^3/ul (0.3-0.9); MONOCYTES % 12.4 % (0.0-11.0); NEUTROPHIL # 4.5 10^3/ul (1.6-7.5); NEUTROPHILS % 71.6 % (39.0-77.0); PLATELET COUNT 169 10^3/UL (140-415); POSITIVE DIFF @See below; RED BLOOD COUNT 3.08 10^6/ul (4.70-6.10); RED CELL DISTRIBUTION WIDTH 18.1 % (11.5-14.5)
[2018-01-18 05:45] LABS: WHITE BLOOD COUNT 6.3 10^3/ul (4.8-10.8)
[2018-01-18 06:11] LABS: ALANINE AMINOTRANSFERASE 23 IU/L (13-69); ALBUMIN 2.5 g/dl (3.3-4.9); ALKALINE PHOSPHATASE 125 IU/L (42-121); ANION GAP 13 (8-16); ASPARTATE AMINO TRANSFERASE 38 IU/L (15-46); BILIRUBIN,INDIRECT 0.5 mg/dl (0-1.1); BILIRUBIN,TOTAL 0.5 mg/dl (0.2-1.3); BLOOD UREA NITROGEN 22 mg/dl (7-20); CARBON DIOXIDE 22 mmol/L (21-31); CHLORIDE 109 mmol/L (97-110); CREATININE 1.97 mg/dl (0.61-1.24); GLUCOSE 107 mg/dl (70-220); POTASSIUM 3.9 mmol/L (3.5-5.1); SODIUM 140 mmol/L (135-144); TOTAL PROTEIN 5.6 g/dl (6.1-8.1)
[2018-01-18] MEDS: SODIUM HYPOCHLORITE 1/40% 1L IRRIG IRR ×2 (08:55→20:16)
[2018-01-18] MEDS: FOLIC ACID 1 MG TAB PO (08:55)
[2018-01-18] MEDS: FERROUS SULFATE (EC) 325 MG TAB PO ×2 (08:55→20:15)
[2018-01-18] MEDS: ISOSORBIDE DINITRATE 10 MG TAB PO ×3 (08:56→20:16)
[2018-01-18] MEDS: DOXYCYCLINE 100 MG TAB PO ×2 (08:56→20:14)
[2018-01-18] MEDS: LUBIPROSTONE 24 MCG CAP PO ×2 (08:56→20:15)
[2018-01-18] MEDS: METOPROLOL (XL) 100 MG TAB PO (08:56)
[2018-01-18] MEDS: ALLOPURINOL 100 MG TAB PO (08:56)
[2018-01-18] MEDS: NICOTINE (14 MG/24 HR) PATCH TRANSDERM (08:57)
[2018-01-18] MEDS: HEPARIN 5,000 UNIT/0.5 ML VIAL SC ×2 (09:01→20:18)
[2018-01-18] MEDS: DOCUSATE SODIUM 100 MG CAP PO (20:14)
[2018-01-18] MEDS: TAMSULOSIN (SR) 0.4 MG CAP PO (20:15)
[2018-01-19] MEDS: HYDROmorphONE 1 MG/ML SYG IV ×2 (01:50→07:09)
[2018-01-19] MEDS: LORAZEPAM 0.5 MG TAB PO ×4 (01:51→17:43)
[2018-01-19] MEDS: oxyCODONE 5 MG TAB PO ×4 (03:42→17:43)
[2018-01-19 06:15] LABS: WHITE BLOOD COUNT 6.9 10^3/ul (4.8-10.8)
[2018-01-19 06:15] LABS: ABNORMAL IP MESSAGE 1; MEAN CORPUSCULAR HEMOGLOBIN 25.6 pg (29.0-33.0); MEAN CORPUSCULAR HGB CONC 30.8 g/dl (32.0-37.0); MEAN CORPUSCULAR VOLUME 83.1 fl (82.0-101.0); MEAN PLATELET VOLUME 13.3 fl (7.4-10.4); PLATELET COUNT 154 10^3/UL (140-415); POSITIVE DIFF @See below; RED BLOOD COUNT 3.13 10^6/ul (4.70-6.10); RED CELL DISTRIBUTION WIDTH 18.2 % (11.5-14.5)
[2018-01-19 06:35] LABS: ANION GAP 8 (8-16); BLOOD UREA NITROGEN 25 mg/dl (7-20); CARBON DIOXIDE 22 mmol/L (21-31); CHLORIDE 109 mmol/L (97-110); CREATININE 2.05 mg/dl (0.61-1.24); GLUCOSE 93 mg/dl (70-220); POTASSIUM 4.2 mmol/L (3.5-5.1); SODIUM 135 mmol/L (135-144)
[2018-01-19 06:37] LABS: ADD MAN DIFF? YES
[2018-01-19] MEDS: LEVOTHYROXINE 100 MCG TAB PO (07:06)
[2018-01-19] MEDS: FUROSEMIDE 40 MG INJ IV ×2 (07:07→17:43)
[2018-01-19] MEDS: HEPARIN 5,000 UNIT/0.5 ML VIAL SC ×2 (08:31→21:02)
[2018-01-19] MEDS: NICOTINE (14 MG/24 HR) PATCH TRANSDERM (08:32)
[2018-01-19] MEDS: METOPROLOL (XL) 100 MG TAB PO (08:34)
[2018-01-19] MEDS: FOLIC ACID 1 MG TAB PO (08:34)
[2018-01-19] MEDS: FERROUS SULFATE (EC) 325 MG TAB PO ×2 (08:34→20:21)
[2018-01-19] MEDS: LUBIPROSTONE 24 MCG CAP PO ×2 (08:34→20:21)
[2018-01-19] MEDS: SODIUM HYPOCHLORITE 1/40% 1L IRRIG IRR ×2 (08:34→20:23)
[2018-01-19] MEDS: ISOSORBIDE DINITRATE 10 MG TAB PO ×3 (08:34→20:22)
[2018-01-19] MEDS: DOXYCYCLINE 100 MG TAB PO ×2 (08:35→20:22)
[2018-01-19] MEDS: ALLOPURINOL 100 MG TAB PO (08:35)
[2018-01-19 09:52] LABS: ANISOCYTOSIS 1+ (0-0); BAND NEUTROPHILS #M 0.5 10^3/ul (0.0-0.6); BAND NEUTROPHILS % (M) 8 % (0-4); BASOPHIL #M 0.1 10^3/ul (0.0-0.0); BASOPHILS % (M) 2 % (0-2); EOSINOPHILS % (M) 1 % (0-7); ERYTHROBLAST% (NRBC) (M) 1 % (0-0); GIANT THROMBO% (M) 1 % (0-0); HYPOCHROMASIA 2+ (0-0); LYMPHOCYTES #M 0.7 10^3/ul (0.8-2.9); LYMPHOCYTES % (M) 11 % (15-51); MICROCYTOSIS 1+ (0-0); MONOCYTE #M 0.2 10^3/ul (0.3-0.9); MONOCYTES % (M) 4 % (0-11); PLATELET ESTIMATE NORMAL; POIKILOCYTOSIS 1+ (0-0); POLYCHROMASIA 3+ (0-0); REACTIVE LYMPHOCYTES #M 0.2 10^3/ul (0.0-0.0); REACTIVE LYMPHOCYTES% (M) 3 % (0-0); SEG NEUT #M 4.9 10^3/ul (1.6-7.5); SEGMENTED NEUTROPHILS (M) % 71 % (39-77); SMUDGE%M 3 % (0-0)
[2018-01-19] MEDS: ALBUTEROL/IPRATROPIUM (NEB) 3 ML AMP HHN ×2 (10:22→19:51)
[2018-01-19] MEDS: HYDROmorphONE 2 MG/ML SYG IV ×4 (11:10→19:40)
[2018-01-19] MEDS: SOD CHLORIDE 0.9% 1,000 ML IV (17:43)
[2018-01-19] MEDS: DOCUSATE SODIUM 100 MG CAP PO (20:22)
[2018-01-19] MEDS: TAMSULOSIN (SR) 0.4 MG CAP PO (21:02)
[2018-01-19] MEDS: AL HYDROX/MG HYDROX/SIMETH 30 ML CUP PO (21:42)
[2018-01-20] MEDS: HYDROmorphONE 2 MG/ML SYG IV ×3 (00:28→09:03)
[2018-01-20] MEDS: LORAZEPAM 0.5 MG TAB PO ×3 (02:39→22:45)
[2018-01-20] MEDS: SOD CHLORIDE 0.9% 1,000 ML IV ×3 (05:00→22:54)
[2018-01-20] MEDS: FUROSEMIDE 40 MG INJ IV ×2 (06:27→18:14)
[2018-01-20] MEDS: LEVOTHYROXINE 100 MCG TAB PO (06:27)
[2018-01-20] MEDS: oxyCODONE 5 MG TAB PO ×3 (07:29→16:29)
[2018-01-20] MEDS: SODIUM HYPOCHLORITE 1/40% 1L IRRIG IRR ×2 (09:02→20:40)
[2018-01-20] MEDS: LUBIPROSTONE 24 MCG CAP PO ×2 (09:04→20:38)
[2018-01-20] MEDS: DOXYCYCLINE 100 MG TAB PO ×2 (09:04→20:38)
[2018-01-20] MEDS: FOLIC ACID 1 MG TAB PO (09:05)
[2018-01-20] MEDS: ALLOPURINOL 100 MG TAB PO (09:05)
[2018-01-20] MEDS: FERROUS SULFATE (EC) 325 MG TAB PO ×2 (09:05→20:38)
[2018-01-20] MEDS: METOPROLOL (XL) 100 MG TAB PO (09:06)
[2018-01-20] MEDS: ISOSORBIDE DINITRATE 10 MG TAB PO ×3 (09:06→20:39)
[2018-01-20] MEDS: HEPARIN 5,000 UNIT/0.5 ML VIAL SC ×2 (09:07→20:45)
[2018-01-20] MEDS: NICOTINE (14 MG/24 HR) PATCH TRANSDERM (09:09)
[2018-01-20] MEDS: ALBUTEROL/IPRATROPIUM (NEB) 3 ML AMP HHN (13:20)
[2018-01-20 14:29] LABS: ANION GAP 12 (8-16); BLOOD UREA NITROGEN 27 mg/dl (7-20); CARBON DIOXIDE 21 mmol/L (21-31); CHLORIDE 106 mmol/L (97-110); CREATININE 1.98 mg/dl (0.61-1.24); GLUCOSE 88 mg/dl (70-220); POTASSIUM 4.4 mmol/L (3.5-5.1); SODIUM 135 mmol/L (135-144)
[2018-01-20] MEDS: HYDROmorphONE 1 MG/ML SYG IV ×2 (14:31→20:13)
[2018-01-20] MEDS: DOCUSATE SODIUM 100 MG CAP PO (20:39)
[2018-01-20] MEDS: TAMSULOSIN (SR) 0.4 MG CAP PO (20:39)
[2018-01-21] MEDS: LEVOTHYROXINE 100 MCG TAB PO (05:13)
[2018-01-21] MEDS: FUROSEMIDE 40 MG INJ IV (05:13)
[2018-01-21] MEDS: LORAZEPAM 0.5 MG TAB PO ×2 (05:14→18:30)
[2018-01-21] MEDS: SOD CHLORIDE 0.9% 1,000 ML IV (05:16)
[2018-01-21] MEDS: HYDROmorphONE 1 MG/ML SYG IV ×4 (06:32→20:04)
[2018-01-21 06:34] LABS: ABNORMAL IP MESSAGE 1; HEMATOCRIT 22.5 % (42.0-52.0); HEMOGLOBIN 7.2 g/dl (14.0-18.0); MEAN CORPUSCULAR HEMOGLOBIN 26.2 pg (29.0-33.0); MEAN CORPUSCULAR VOLUME 81.8 fl (82.0-101.0); MEAN PLATELET VOLUME 12.3 fl (7.4-10.4); PLATELET COUNT 78 10^3/UL (140-415); POSITIVE DIFF @See below; RED BLOOD COUNT 2.75 10^6/ul (4.70-6.10)
[2018-01-21 06:34] LABS: WHITE BLOOD COUNT 6.2 10^3/ul (4.8-10.8)
[2018-01-21 07:06] LABS: ANION GAP 11 (8-16); BLOOD UREA NITROGEN 26 mg/dl (7-20); CARBON DIOXIDE 22 mmol/L (21-31); CHLORIDE 107 mmol/L (97-110); CREATININE 1.88 mg/dl (0.61-1.24); GLUCOSE 86 mg/dl (70-220); POTASSIUM 4.2 mmol/L (3.5-5.1); SODIUM 136 mmol/L (135-144)
[2018-01-21 07:14] LABS: ADD MAN DIFF? YES
[2018-01-21 07:57] LABS: ANISOCYTOSIS 1+ (0-0); BAND NEUTROPHILS #M 0.2 10^3/ul (0.0-0.6); BAND NEUTROPHILS % (M) 4 % (0-4); BASOPHILS % (M) 1 % (0-2); EOSINOPHILS % (M) 5 % (0-7); GIANT THROMBO% (M) 14 % (0-0); LYMPHOCYTES #M 0.1 10^3/ul (0.8-2.9); LYMPHOCYTES % (M) 3 % (15-51); MONOCYTE #M 0.6 10^3/ul (0.3-0.9); MONOCYTES % (M) 10 % (0-11); PLATELET ESTIMATE DECREASED; POLYCHROMASIA 1+ (0-0); REACTIVE LYMPHOCYTES% (M) 1 % (0-0); SEG NEUT #M 4.7 10^3/ul (1.6-7.5); SEGMENTED NEUTROPHILS (M) % 76 % (39-77); SMUDGE%M 27 % (0-0)
[2018-01-21] MEDS: SODIUM HYPOCHLORITE 1/40% 1L IRRIG IRR ×3 (09:00→21:21)
[2018-01-21] MEDS: oxyCODONE 5 MG TAB PO ×3 (09:02→18:29)
[2018-01-21] MEDS: DOXYCYCLINE 100 MG TAB PO ×2 (09:02→21:12)
[2018-01-21] MEDS: METOPROLOL (XL) 100 MG TAB PO (09:03)
[2018-01-21] MEDS: ALLOPURINOL 100 MG TAB PO (09:03)
[2018-01-21] MEDS: FOLIC ACID 1 MG TAB PO (09:03)
[2018-01-21] MEDS: FERROUS SULFATE (EC) 325 MG TAB PO ×2 (09:03→21:13)
[2018-01-21] MEDS: LUBIPROSTONE 24 MCG CAP PO ×2 (09:03→21:12)
[2018-01-21] MEDS: ISOSORBIDE DINITRATE 10 MG TAB PO ×3 (09:04→21:15)
[2018-01-21] MEDS: HEPARIN 5,000 UNIT/0.5 ML VIAL SC ×2 (09:06→21:21)
[2018-01-21] MEDS: NICOTINE (14 MG/24 HR) PATCH TRANSDERM (09:32)
[2018-01-21] MEDS ORDERED: ALBUTEROL/IPRATROPIUM (NEB) 3 ML AMP HHN (15:30)
[2018-01-21] MEDS ORDERED: ACETAMINOPHEN 500 MG TAB PO (19:00)
[2018-01-21] MEDS: DOCUSATE SODIUM 100 MG CAP PO (21:12)
[2018-01-21] MEDS: TAMSULOSIN (SR) 0.4 MG CAP PO (21:13)
[2018-01-22] MEDS: HYDROmorphONE 1 MG/ML SYG IV ×4 (01:18→19:04)
[2018-01-22] MEDS: LEVOTHYROXINE 100 MCG TAB PO ×2 (06:00→08:11)
[2018-01-22 06:24] LABS: ABNORMAL IP MESSAGE 1; HEMOGLOBIN 7.2 g/dl (14.0-18.0); MEAN CORPUSCULAR HEMOGLOBIN 25.5 pg (29.0-33.0); MEAN CORPUSCULAR HGB CONC 31.3 g/dl (32.0-37.0); MEAN CORPUSCULAR VOLUME 81.6 fl (82.0-101.0); MEAN PLATELET VOLUME 12.8 fl (7.4-10.4); PLATELET COUNT 59 10^3/UL (140-415); POSITIVE DIFF @See below; RED BLOOD COUNT 2.82 10^6/ul (4.70-6.10); RED CELL DISTRIBUTION WIDTH 17.9 % (11.5-14.5)
[2018-01-22 06:32] LABS: ADD MAN DIFF? YES
[2018-01-22 07:04] LABS: ANION GAP 9 (8-16); BLOOD UREA NITROGEN 25 mg/dl (7-20); CALCIUM 8.2 mg/dl (8.4-10.2); CARBON DIOXIDE 25 mmol/L (21-31); CHLORIDE 108 mmol/L (97-110); CREATININE 1.84 mg/dl (0.61-1.24); GLUCOSE 83 mg/dl (70-220); POTASSIUM 4.2 mmol/L (3.5-5.1); SODIUM 138 mmol/L (135-144)
[2018-01-22] MEDS: LUBIPROSTONE 24 MCG CAP PO ×2 (08:11→21:37)
[2018-01-22] MEDS: DOXYCYCLINE 100 MG TAB PO ×2 (08:11→21:37)
[2018-01-22] MEDS: FERROUS SULFATE (EC) 325 MG TAB PO ×2 (08:11→21:38)
[2018-01-22] MEDS: ISOSORBIDE DINITRATE 10 MG TAB PO ×3 (08:11→21:37)
[2018-01-22] MEDS: FOLIC ACID 1 MG TAB PO (08:12)
[2018-01-22] MEDS: ALLOPURINOL 100 MG TAB PO (08:12)
[2018-01-22] MEDS: METOPROLOL (XL) 100 MG TAB PO (08:12)
[2018-01-22] MEDS: NICOTINE (14 MG/24 HR) PATCH TRANSDERM (08:13)
[2018-01-22] MEDS: FUROSEMIDE 40 MG INJ IV (08:13)
[2018-01-22] MEDS: HEPARIN 5,000 UNIT/0.5 ML VIAL SC ×2 (08:14→21:45)
[2018-01-22] MEDS: SODIUM HYPOCHLORITE 1/40% 1L IRRIG IRR ×2 (08:15→21:48)
[2018-01-22] MEDS: oxyCODONE 5 MG TAB PO ×3 (09:36→21:03)
[2018-01-22 09:54] LABS: ANISOCYTOSIS 1+ (0-0); BAND NEUTROPHILS #M 0.4 10^3/ul (0.0-0.6); BAND NEUTROPHILS % (M) 7 % (0-4); BASOPHILS % (M) 1 % (0-2); BURR CELLS 1+ (0-0); EOSINOPHILS % (M) 6 % (0-7); GIANT THROMBO% (M) 2 % (0-0); HYPOCHROMASIA 2+ (0-0); LYMPHOCYTES #M 0.4 10^3/ul (0.8-2.9); LYMPHOCYTES % (M) 8 % (15-51); METAMYELOCYTES %M 1 % (0-0); MONOCYTE #M 0.9 10^3/ul (0.3-0.9); MONOCYTES % (M) 15 % (0-11); MYELOCYTES #M 0.1 10^3/ul (0.0-0.0); MYELOCYTES % (M) 3 % (0-0); OVALOCYTES 1+ (0-0); PLATELET ESTIMATE DECREASED; POIKILOCYTOSIS 1+ (0-0); POLYCHROMASIA 1+ (0-0); PROMYELOCYTES % (M) 1 % (0-0); REACTIVE LYMPHOCYTES% (M) 1 % (0-0); SEG NEUT #M 3.4 10^3/ul (1.6-7.5); SEGMENTED NEUTROPHILS (M) % 57 % (39-77); SMUDGE%M 17 % (0-0)
[2018-01-22] MEDS: LORAZEPAM 0.5 MG TAB PO (19:49)
[2018-01-22 20:47] LABS: IMMEDIATE SPIN CROSSMATCH 1 2
[2018-01-22] MEDS: DOCUSATE SODIUM 100 MG CAP PO (21:37)
[2018-01-22] MEDS: TAMSULOSIN (SR) 0.4 MG CAP PO (21:40)
[2018-01-23] MEDS: HYDROmorphONE 1 MG/ML SYG IV ×5 (01:17→18:29)
[2018-01-23] MEDS: LORAZEPAM 0.5 MG TAB PO ×4 (02:02→23:47)
[2018-01-23] MEDS: oxyCODONE 5 MG TAB PO ×5 (03:09→21:11)
[2018-01-23] MEDS: LEVOTHYROXINE 100 MCG TAB PO (05:30)
[2018-01-23] MEDS: LIDOCAINE 1% (MDV) 10 ML INJ (08:16)
[2018-01-23] MEDS: SOD CHLORIDE 0.9% 250 ML IV* ×2 (08:16→23:48)
[2018-01-23] MEDS: FERROUS SULFATE (EC) 325 MG TAB PO ×2 (08:48→21:10)
[2018-01-23] MEDS: LUBIPROSTONE 24 MCG CAP PO ×2 (08:49→21:09)
[2018-01-23] MEDS: FOLIC ACID 1 MG TAB PO (08:49)
[2018-01-23] MEDS: DOXYCYCLINE 100 MG TAB PO ×2 (08:49→21:09)
[2018-01-23] MEDS: ALLOPURINOL 100 MG TAB PO (08:50)
[2018-01-23] MEDS: ISOSORBIDE DINITRATE 10 MG TAB PO ×3 (08:50→21:10)
[2018-01-23] MEDS: SODIUM HYPOCHLORITE 1/40% 1L IRRIG IRR ×2 (08:50→23:49)
[2018-01-23] MEDS: FUROSEMIDE 40 MG INJ IV (08:50)
[2018-01-23] MEDS: METOPROLOL (XL) 100 MG TAB PO (08:50)
[2018-01-23] MEDS: NICOTINE (14 MG/24 HR) PATCH TRANSDERM (08:51)
[2018-01-23] MEDS: HEPARIN 5,000 UNIT/0.5 ML VIAL SC ×2 (08:52→21:17)
[2018-01-23 12:22] LABS: ADD MAN DIFF? NO
[2018-01-23 12:27] LABS: ABNORMAL IP MESSAGE 1; BASOPHIL # 0.1 10^3/ul (0.0-0.1); BASOPHILS % 1.2 % (0.0-2.0); EOSINOPHILS # 0.3 10^3/ul (0.0-0.5); EOSINOPHILS % 2.9 % (0.0-7.0); HEMATOCRIT 23.8 % (42.0-52.0); HEMOGLOBIN 7.5 g/dl (14.0-18.0); LYMPHOCYTES % 10.8 % (15.0-51.0); MEAN CORPUSCULAR HEMOGLOBIN 25.8 pg (29.0-33.0); MEAN CORPUSCULAR HGB CONC 31.5 g/dl (32.0-37.0); MEAN CORPUSCULAR VOLUME 81.8 fl (82.0-101.0); MONOCYTE # 2.6 10^3/ul (0.3-0.9); MONOCYTES % 27.4 % (0.0-11.0); NEUTROPHIL # 5.2 10^3/ul (1.6-7.5); NEUTROPHILS % 55.4 % (39.0-77.0); PLATELET COUNT 53 10^3/UL (140-415); POSITIVE DIFF @See below; RED BLOOD COUNT 2.91 10^6/ul (4.70-6.10); RED CELL DISTRIBUTION WIDTH 17.8 % (11.5-14.5)
[2018-01-23 12:27] LABS: WHITE BLOOD COUNT 9.3 10^3/ul (4.8-10.8)
[2018-01-23 12:48] LABS: ANION GAP 10 (8-16); BLOOD UREA NITROGEN 20 mg/dl (7-20); CALCIUM 8.2 mg/dl (8.4-10.2); CARBON DIOXIDE 23 mmol/L (21-31); CHLORIDE 108 mmol/L (97-110); CREATININE 1.69 mg/dl (0.61-1.24); GLUCOSE 100 mg/dl (70-220); POTASSIUM 4.2 mmol/L (3.5-5.1); SODIUM 137 mmol/L (135-144)
[2018-01-23 13:29] LABS: ANISOCYTOSIS 1+ (0-0); BASOPHILS % (M) 1 % (0-2); EOSINOPHILS % (M) 3 % (0-7); GIANT THROMBO% (M) 4 % (0-0); HYPOCHROMASIA 1+ (0-0); LYMPHOCYTES #M 1.1 10^3/ul (0.8-2.9); LYMPHOCYTES % (M) 12 % (15-51); METAMYELOCYTES %M 1 % (0-0); MICROCYTOSIS 1+ (0-0); MONOCYTE #M 1.7 10^3/ul (0.3-0.9); MONOCYTES % (M) 19 % (0-11); MYELOCYTES #M 0.3 10^3/ul (0.0-0.0); MYELOCYTES % (M) 4 % (0-0); PLATELET ESTIMATE DECREASED; SEGMENTED NEUTROPHILS (M) % 60 % (39-77); SMUDGE%M 6 % (0-0)
[2018-01-23] MEDS: (Nursing Note) XX (16:00)
[2018-01-23] MEDS: TAMSULOSIN (SR) 0.4 MG CAP PO (21:09)
[2018-01-23] MEDS: DOCUSATE SODIUM 100 MG CAP PO (21:10)
[2018-01-24] MEDS: HYDROmorphONE 1 MG/ML SYG IV ×5 (00:28→21:37)
[2018-01-24] MEDS: oxyCODONE 5 MG TAB PO ×3 (01:40→18:11)
[2018-01-24] MEDS: LEVOTHYROXINE 100 MCG TAB PO (04:56)
[2018-01-24 05:57] LABS: ADD MAN DIFF? NO
[2018-01-24 06:03] LABS: WHITE BLOOD COUNT 10.6 10^3/ul (4.8-10.8)
[2018-01-24 06:03] LABS: ABNORMAL IP MESSAGE 1; BASOPHIL # 0.1 10^3/ul (0.0-0.1); BASOPHILS % 0.9 % (0.0-2.0); EOSINOPHILS # 0.3 10^3/ul (0.0-0.5); EOSINOPHILS % 2.7 % (0.0-7.0); HEMATOCRIT 24.8 % (42.0-52.0); HEMOGLOBIN 7.9 g/dl (14.0-18.0); LYMPHOCYTES # 0.8 10^3/ul (0.8-2.9); LYMPHOCYTES % 7.9 % (15.0-51.0); MEAN CORPUSCULAR HGB CONC 31.9 g/dl (32.0-37.0); MEAN CORPUSCULAR VOLUME 81.6 fl (82.0-101.0); MONOCYTE # 2.7 10^3/ul (0.3-0.9); MONOCYTES % 25.1 % (0.0-11.0); NEUTROPHIL # 6.3 10^3/ul (1.6-7.5); NEUTROPHILS % 58.9 % (39.0-77.0); PLATELET COUNT 64 10^3/UL (140-415); POSITIVE DIFF @See below; RED BLOOD COUNT 3.04 10^6/ul (4.70-6.10); RED CELL DISTRIBUTION WIDTH 17.3 % (11.5-14.5)
[2018-01-24 06:35] LABS: ANION GAP 11 (8-16); BLOOD UREA NITROGEN 18 mg/dl (7-20); CARBON DIOXIDE 24 mmol/L (21-31); CHLORIDE 107 mmol/L (97-110); CREATININE 1.65 mg/dl (0.61-1.24); GLUCOSE 94 mg/dl (70-220); POTASSIUM 3.9 mmol/L (3.5-5.1); SODIUM 138 mmol/L (135-144)
[2018-01-24] MEDS: LUBIPROSTONE 24 MCG CAP PO (09:13)
[2018-01-24] MEDS: FUROSEMIDE 40 MG INJ IV (09:13)
[2018-01-24] MEDS: METOPROLOL (XL) 100 MG TAB PO (09:14)
[2018-01-24] MEDS: FERROUS SULFATE (EC) 325 MG TAB PO (09:14)
[2018-01-24] MEDS: ALLOPURINOL 100 MG TAB PO (09:14)
[2018-01-24] MEDS: NICOTINE (14 MG/24 HR) PATCH TRANSDERM (09:14)
[2018-01-24] MEDS: ISOSORBIDE DINITRATE 10 MG TAB PO ×2 (09:15→15:52)
[2018-01-24] MEDS: FOLIC ACID 1 MG TAB PO (09:15)
[2018-01-24] MEDS: DOXYCYCLINE 100 MG TAB PO (09:18)
[2018-01-24] MEDS: HEPARIN 5,000 UNIT/0.5 ML VIAL SC (09:18)
[2018-01-24] MEDS: SODIUM HYPOCHLORITE 1/40% 1L IRRIG IRR (09:18)
[2018-01-24] MEDS: LORAZEPAM 0.5 MG TAB PO ×2 (09:32→15:56)
[2018-01-24] MEDS: (Nursing Note) XX ×2 (10:00→16:00)
== END 2018-01-24 21:45 | DRG 602 ==
LOC: MS2 12-29 23:20 → E/R 15:50 → MS2 23:08
PROC: 30233N1 Transfusion of Nonautologous Red Blood Cells into Peripheral Vein, Percutaneous Approach (ICD-10-PCS; 2018-01-04)
PROC: 0W9G3ZZ Drainage of Peritoneal Cavity, Percutaneous Approach (ICD-10-PCS; principal; 2018-01-10)
DX: L03.116 Cellulitis of left lower limb (principal); I50.33 Acute on chronic diastolic (congestive) heart failure; N17.0 Acute kidney failure with tubular necrosis; J18.9 Pneumonia, unspecified organism; I13.0 Hypertensive heart and chronic kidney disease with heart failure and stage 1 through stage 4 chronic kidney disease, or unspecified chronic kidney disease; N39.0 Urinary tract infection, site not specified; K76.6 Portal hypertension; L03.115 Cellulitis of right lower limb; K70.31 Alcoholic cirrhosis of liver with ascites; N50.89 Other specified disorders of the male genital organs; K80.20 Calculus of gallbladder without cholecystitis without obstruction; E87.6 Hypokalemia; E03.9 Hypothyroidism, unspecified; D64.9 Anemia, unspecified; E66.9 Obesity, unspecified; N18.9 Chronic kidney disease, unspecified; N40.0 Benign prostatic hyperplasia without lower urinary tract symptoms; E83.42 Hypomagnesemia; M10.9 Gout, unspecified; K59.00 Constipation, unspecified; I87.2 Venous insufficiency (chronic) (peripheral); Z68.33 Body mass index [BMI] 33.0-33.9, adult; M71.21 Synovial cyst of popliteal space [Baker], right knee; F10.20 Alcohol dependence, uncomplicated; I86.1 Scrotal varices; Z91.19 Patient's noncompliance with other medical treatment and regimen
CPT/HCPCS: 36430; 71045; 74018; 74181; 76705; 76870; 80048; 80053; 80076; 80202; 82105; 82270; 82550; 82553; 82607; 82728; 82746; 83735; 83880; 84100; 84484; 85025; 85045; 85610; 85730; 86850; 86900; 86901; 86920; 87040; 87086; 93005; 93306; 93922; 93970; 94640; 94664; 99285-25

== ENCOUNTER 2018-02-03 19:11 | Emergency (ER) | payer BC ==
[2018-02-03 20:27] LABS: ADD UMIC NO; UR ASCORBIC ACID NEGATIVE (NEGATIVE); UR BILIRUBIN (Dip) NEGATIVE (NEGATIVE); UR BLOOD (Dip) NEGATIVE (NEGATIVE); UR CLARITY CLEAR (CLEAR); UR COLOR YELLOW (YELLOW); UR GLUCOSE (Dip) NEGATIVE (NEGATIVE); UR KETONES (Dip) NEGATIVE (NEGATIVE); UR LEUKOCYTE ESTERASE (Dip) NEGATIVE Leu/ul (NEGATIVE); UR NITRITE (Dip) NEGATIVE (NEGATIVE); UR SPECIFIC GRAVITY (Dip) 1.006 (1.003-1.030); UR TOTAL PROTEIN (Dip) NEGATIVE (NEGATIVE); UR UROBILINOGEN (Dip) NEGATIVE (NEGATIVE)
[2018-02-03] MEDS: FUROSEMIDE 40 MG INJ IV (20:30)
[2018-02-03 20:36] LABS: ADD MAN DIFF? NO
[2018-02-03 20:39] LABS: WHITE BLOOD COUNT 11.8 10^3/ul (4.8-10.8)
[2018-02-03 20:39] LABS: ABNORMAL IP MESSAGE 1; BASOPHIL # 0.1 10^3/ul (0.0-0.1); BASOPHILS % 0.7 % (0.0-2.0); EOSINOPHILS # 0.2 10^3/ul (0.0-0.5); EOSINOPHILS % 1.5 % (0.0-7.0); HEMATOCRIT 27.4 % (42.0-52.0); HEMOGLOBIN 8.8 g/dl (14.0-18.0); LYMPHOCYTES # 1.2 10^3/ul (0.8-2.9); LYMPHOCYTES % 10.4 % (15.0-51.0); MEAN CORPUSCULAR HGB CONC 32.1 g/dl (32.0-37.0); MEAN CORPUSCULAR VOLUME 81.1 fl (82.0-101.0); MEAN PLATELET VOLUME 12.6 fl (7.4-10.4); MONOCYTE # 1.8 10^3/ul (0.3-0.9); MONOCYTES % 14.8 % (0.0-11.0); NEUTROPHILS % 67.6 % (39.0-77.0); NUCLEATED RED BLOOD CELLS% 0.2 /100WBC (0.0-0.0); PLATELET COUNT 227 10^3/UL (140-415); POSITIVE DIFF @See below; RED BLOOD COUNT 3.38 10^6/ul (4.70-6.10); RED CELL DISTRIBUTION WIDTH 20.1 % (11.5-14.5)
[2018-02-03 20:57] LABS: ALANINE AMINOTRANSFERASE 21 IU/L (13-69); ALBUMIN 2.9 g/dl (3.3-4.9); ALBUMIN/GLOBULIN RATIO 0.85; ALKALINE PHOSPHATASE 216 IU/L (42-121); ANION GAP 18 (8-16); ASPARTATE AMINO TRANSFERASE 34 IU/L (15-46); BILIRUBIN,INDIRECT 0.3 mg/dl (0-1.1); BILIRUBIN,TOTAL 0.3 mg/dl (0.2-1.3); BLOOD UREA NITROGEN 20 mg/dl (7-20); CALCIUM 6.6 mg/dl (8.4-10.2); CARBON DIOXIDE 17 mmol/L (21-31); CHLORIDE 106 mmol/L (97-110); CREATININE 2.66 mg/dl (0.61-1.24); GLUCOSE 90 mg/dl (70-220); LIPASE 111 U/L (23-300); POTASSIUM 3.6 mmol/L (3.5-5.1); SODIUM 137 mmol/L (135-144); TOTAL PROTEIN 6.3 g/dl (6.1-8.1)
[2018-02-03] MEDS: HYDROmorphONE 4 MG TAB PO (21:03)
== END 2018-02-03 23:19 | disposition home or self-care (01) ==
LOC: E/R 19:11
DX: G89.4 Chronic pain syndrome (principal); F10.129 Alcohol abuse with intoxication, unspecified; K70.30 Alcoholic cirrhosis of liver without ascites; D64.9 Anemia, unspecified; I12.9 Hypertensive chronic kidney disease with stage 1 through stage 4 chronic kidney disease, or unspecified chronic kidney disease; N18.9 Chronic kidney disease, unspecified; I50.9 Heart failure, unspecified
CPT/HCPCS: 71045; 80053; 80307; 81003; 83690; 85025; 96374; 99284-25

== ENCOUNTER 2018-02-10 12:08 | Inpatient (IN) | payer BC ==
[2018-02-10 13:02] LABS: ADD MAN DIFF? NO
[2018-02-10 13:11] LABS: WHITE BLOOD COUNT 10.1 10^3/ul (4.8-10.8)
[2018-02-10 13:11] LABS: ABNORMAL IP MESSAGE 1; BASOPHIL # 0.1 10^3/ul (0.0-0.1); BASOPHILS % 0.6 % (0.0-2.0); EOSINOPHILS # 0.4 10^3/ul (0.0-0.5); EOSINOPHILS % 3.8 % (0.0-7.0); HEMATOCRIT 28.5 % (42.0-52.0); HEMOGLOBIN 9.1 g/dl (14.0-18.0); LYMPHOCYTES # 1.3 10^3/ul (0.8-2.9); LYMPHOCYTES % 12.4 % (15.0-51.0); MEAN CORPUSCULAR HGB CONC 31.9 g/dl (32.0-37.0); MEAN CORPUSCULAR VOLUME 81.4 fl (82.0-101.0); MONOCYTES % 19.8 % (0.0-11.0); NEUTROPHIL # 5.9 10^3/ul (1.6-7.5); NEUTROPHILS % 58.6 % (39.0-77.0); NUCLEATED RED BLOOD CELLS # 0.1 10^3/ul (0.0-0.0); NUCLEATED RED BLOOD CELLS% 0.6 /100WBC (0.0-0.0); PLATELET COUNT 111 10^3/UL (140-415); RED CELL DISTRIBUTION WIDTH 20.5 % (11.5-14.5)
[2018-02-10 13:27] LABS: ALANINE AMINOTRANSFERASE 26 IU/L (13-69); ALBUMIN 2.9 g/dl (3.3-4.9); ALBUMIN/GLOBULIN RATIO 0.82; ALKALINE PHOSPHATASE 184 IU/L (42-121); ANION GAP 17 (8-16); ASPARTATE AMINO TRANSFERASE 39 IU/L (15-46); BILIRUBIN,INDIRECT 0.5 mg/dl (0-1.1); BILIRUBIN,TOTAL 0.5 mg/dl (0.2-1.3); BLOOD UREA NITROGEN 13 mg/dl (7-20); CALCIUM 7.2 mg/dl (8.4-10.2); CARBON DIOXIDE 20 mmol/L (21-31); CHLORIDE 104 mmol/L (97-110); CREATININE 1.77 mg/dl (0.61-1.24); GLUCOSE 109 mg/dl (70-220); LIPASE 91 U/L (23-300); POTASSIUM 3.2 mmol/L (3.5-5.1); SODIUM 138 mmol/L (135-144); TOTAL PROTEIN 6.4 g/dl (6.1-8.1)
[2018-02-10 13:30] LABS: INR 1.39; PARTIAL THROMBOPLASTIN TIME 33.8 Sec (25.0-35.0); PROTIME 17.3 Sec (11.9-14.9); PT RATIO 1.4
[2018-02-10] MEDS: METHYLPREDNISOLONE 125 MG INJ IV (13:33)
[2018-02-10 13:42] LABS: B-TYPE NATRIURETIC PEPTIDE 575 PG/ML (0-125)
[2018-02-10 13:45] LABS: TROPONIN-I < 0.012 ng/ml (0.000-0.120)
[2018-02-10] MEDS: ALBUTEROL 0.5% (NEB) 2.5 MG/0.5 ML AMP INH (13:57)
[2018-02-10] MEDS: IPRATROPIUM (NEB) 0.5 MG/2.5 ML AMP INH (13:57)
[2018-02-10] MEDS: LIDOCAINE 1% (MDV) 10 ML INJ (15:47)
[2018-02-10] MEDS: ASPIRIN 81 MG TAB PO (15:51)
[2018-02-10] MEDS: ONDANSETRON 4 MG INJ IV (17:54)
[2018-02-10] MEDS: POTASSIUM CHLORIDE 100 ML IVPB (18:07)
[2018-02-10] MEDS: HYDROmorphONE 2 MG/ML SYG IV (19:13)
[2018-02-10 19:19] LABS: CHOLESTEROL 93 mg/dl (100-200)
[2018-02-10 19:19] LABS: HDL CHOLESTEROL 31 mg/dl (30-78); LDL CHOLESTEROL,CALCULATED 44 mg/dl; TRIGLYCERIDES 91 mg/dl (0-149)
[2018-02-10] MEDS: [UNRECOGNIZED DRUG - REMARK] XX (19:30)
[2018-02-10 19:36] LABS: FREE T4 (FREE THYROXINE) 0.71 ng/dl (0.78-2.44)
[2018-02-10] MEDS: ISOSORBIDE DINITRATE 10 MG TAB PO (21:00)
[2018-02-10] MEDS: DOCUSATE SODIUM 100 MG CAP PO (21:00)
[2018-02-10 21:06] LABS: CREATINE KINASE 53 IU/L (23-200)
[2018-02-10 21:18] LABS: CK INDEX 2.3
[2018-02-10 21:36] LABS: TROPONIN-I < 0.012 ng/ml (0.000-0.120)
[2018-02-10] MEDS: FUROSEMIDE 20 MG TAB PO (22:44)
[2018-02-10] MEDS: METOPROLOL (XL) 50 MG TAB PO (22:45)
[2018-02-10] MEDS: TAMSULOSIN (SR) 0.4 MG CAP PO (22:45)
[2018-02-10] MEDS: LORAZEPAM 1 MG TAB PO (23:00)
[2018-02-10] MEDS: HYDROmorphONE 1 MG/ML SYG IV (23:01)
[2018-02-11 00:58] LABS: CREATINE KINASE 48 IU/L (23-200)
[2018-02-11 01:11] LABS: CK-MB 1.45 ng/ml (0.0-2.4); TROPONIN-I < 0.012 ng/ml (0.000-0.120)
[2018-02-11] MEDS: LEVOFLOXACIN 250 MG TAB PO ×2 (02:17→09:31)
[2018-02-11] MEDS: HYDROmorphONE 1 MG/ML SYG IV ×5 (03:23→21:17)
[2018-02-11] MEDS: [UNRECOGNIZED DRUG - REMARK] XX ×3 (03:30→11:14)
[2018-02-11] MEDS: LORAZEPAM 1 MG TAB PO ×3 (06:05→19:41)
[2018-02-11 09:02] LABS: ADD MAN DIFF? NO
[2018-02-11 09:20] LABS: WHITE BLOOD COUNT 10.2 10^3/ul (4.8-10.8)
[2018-02-11 09:20] LABS: ABNORMAL IP MESSAGE 1; BASOPHILS % 0.2 % (0.0-2.0); HEMATOCRIT 28.5 % (42.0-52.0); LYMPHOCYTES # 0.8 10^3/ul (0.8-2.9); LYMPHOCYTES % 7.3 % (15.0-51.0); MEAN CORPUSCULAR HEMOGLOBIN 25.9 pg (29.0-33.0); MEAN CORPUSCULAR HGB CONC 31.6 g/dl (32.0-37.0); MEAN CORPUSCULAR VOLUME 81.9 fl (82.0-101.0); MONOCYTE # 0.5 10^3/ul (0.3-0.9); MONOCYTES % 4.5 % (0.0-11.0); NEUTROPHIL # 8.8 10^3/ul (1.6-7.5); NEUTROPHILS % 86.1 % (39.0-77.0); NUCLEATED RED BLOOD CELLS% 0.4 /100WBC (0.0-0.0); POSITIVE DIFF @See below; RED BLOOD COUNT 3.48 10^6/ul (4.70-6.10); RED CELL DISTRIBUTION WIDTH 20.8 % (11.5-14.5)
[2018-02-11 09:23] LABS: PLATELET COUNT 81 10^3/UL (140-415)
[2018-02-11] MEDS: FERROUS SULFATE (EC) 325 MG TAB PO (09:31)
[2018-02-11] MEDS: ALLOPURINOL 100 MG TAB PO (09:31)
[2018-02-11] MEDS: FOLIC ACID 1 MG TAB PO (09:31)
[2018-02-11] MEDS: ACETAMINOPHEN 325 MG TAB PO (09:31)
[2018-02-11] MEDS: LEVOTHYROXINE 100 MCG TAB PO (09:31)
[2018-02-11] MEDS: FUROSEMIDE 20 MG TAB PO ×2 (09:32→17:37)
[2018-02-11] MEDS: METOPROLOL (XL) 50 MG TAB PO (09:32)
[2018-02-11] MEDS: METHYLPREDNISOLONE 40 MG INJ IV (09:32)
[2018-02-11] MEDS: ISOSORBIDE DINITRATE 10 MG TAB PO ×3 (09:33→20:31)
[2018-02-11 09:39] LABS: ANION GAP 16 (8-16); BLOOD UREA NITROGEN 23 mg/dl (7-20); CALCIUM 7.3 mg/dl (8.4-10.2); CARBON DIOXIDE 24 mmol/L (21-31); CHLORIDE 103 mmol/L (97-110); CREATININE 1.55 mg/dl (0.61-1.24); GLUCOSE 119 mg/dl (70-220); POTASSIUM 4.2 mmol/L (3.5-5.1); SODIUM 139 mmol/L (135-144)
[2018-02-11 11:05] LABS: ANISOCYTOSIS 1+ (0-0); BAND NEUTROPHILS #M 0.4 10^3/ul (0.0-0.6); BAND NEUTROPHILS % (M) 4 % (0-4); BURR CELLS 2+ (0-0); LYMPHOCYTES #M 0.5 10^3/ul (0.8-2.9); LYMPHOCYTES % (M) 5 % (15-51); METAMYELOCYTES #M 0.1 10^3/ul (0.0-0.0); METAMYELOCYTES %M 1 % (0-0); MICROCYTOSIS 1+ (0-0); MONOCYTE #M 0.5 10^3/ul (0.3-0.9); MONOCYTES % (M) 5 % (0-11); PLATELET ESTIMATE DECREASED; POIKILOCYTOSIS 2+ (0-0); POLYCHROMASIA 1+ (0-0); SEG NEUT #M 8.7 10^3/ul (1.6-7.5); SEGMENTED NEUTROPHILS (M) % 85 % (39-77); SMUDGE%M 3 % (0-0); TARGET CELLS 2+ (0-0)
[2018-02-11] MEDS: ONDANSETRON 4 MG INJ IV (11:30)
[2018-02-11] MEDS: ALBUMIN HUMAN 25% 100 ML IV ×2 (13:36→20:31)
[2018-02-11] MEDS: TAMSULOSIN (SR) 0.4 MG CAP PO (20:31)
[2018-02-11] MEDS: ALBUTEROL 0.083% (NEB) 2.5 MG/3 ML AMP HHN (23:04)
[2018-02-12] MEDS: HYDROmorphONE 1 MG/ML SYG IV ×7 (00:56→21:43)
[2018-02-12] MEDS: LORAZEPAM 1 MG TAB PO ×4 (01:59→22:45)
[2018-02-12] MEDS: ALBUMIN HUMAN 25% 100 ML IV (04:14)
[2018-02-12] MEDS: FUROSEMIDE 20 MG TAB PO ×2 (05:06→17:51)
[2018-02-12] MEDS: ALBUTEROL 0.083% (NEB) 2.5 MG/3 ML AMP HHN (05:44)
[2018-02-12] MEDS: GUAIFENESIN 20 MG/ML 5ML CUP PO (06:15)
[2018-02-12] MEDS: [UNRECOGNIZED DRUG - REMARK] XX (07:16)
[2018-02-12] MEDS: FERROUS SULFATE (EC) 325 MG TAB PO (08:56)
[2018-02-12] MEDS: FOLIC ACID 1 MG TAB PO (08:56)
[2018-02-12] MEDS: LEVOTHYROXINE 100 MCG TAB PO (08:56)
[2018-02-12] MEDS: ALLOPURINOL 100 MG TAB PO (08:56)
[2018-02-12] MEDS: LEVOFLOXACIN 250 MG TAB PO (08:56)
[2018-02-12] MEDS: METOPROLOL (XL) 50 MG TAB PO (08:57)
[2018-02-12] MEDS: ISOSORBIDE DINITRATE 10 MG TAB PO ×3 (08:57→21:44)
[2018-02-12] MEDS: METHYLPREDNISOLONE 40 MG INJ IV (08:58)
[2018-02-12 09:10] LABS: WHITE BLOOD COUNT 9.1 10^3/ul (4.8-10.8)
[2018-02-12 09:10] LABS: ABNORMAL IP MESSAGE 1; HEMATOCRIT 22.9 % (42.0-52.0); HEMOGLOBIN 7.2 g/dl (14.0-18.0); MEAN CORPUSCULAR HGB CONC 31.4 g/dl (32.0-37.0); MEAN CORPUSCULAR VOLUME 82.7 fl (82.0-101.0); NUCLEATED RED BLOOD CELLS% 0.4 /100WBC (0.0-0.0); POSITIVE DIFF @See below; RED BLOOD COUNT 2.77 10^6/ul (4.70-6.10); RED CELL DISTRIBUTION WIDTH 20.4 % (11.5-14.5)
[2018-02-12 09:15] LABS: PLATELET COUNT 63 10^3/UL (140-415)
[2018-02-12 09:16] LABS: ADD MAN DIFF? YES
[2018-02-12 09:25] LABS: ALANINE AMINOTRANSFERASE 20 IU/L (13-69); ALBUMIN/GLOBULIN RATIO 1.07; ALKALINE PHOSPHATASE 129 IU/L (42-121); ANION GAP 16 (8-16); ASPARTATE AMINO TRANSFERASE 25 IU/L (15-46); BILIRUBIN,INDIRECT 0.5 mg/dl (0-1.1); BILIRUBIN,TOTAL 0.5 mg/dl (0.2-1.3); BLOOD UREA NITROGEN 43 mg/dl (7-20); CALCIUM 7.2 mg/dl (8.4-10.2); CARBON DIOXIDE 26 mmol/L (21-31); CHLORIDE 100 mmol/L (97-110); CREATININE 1.59 mg/dl (0.61-1.24); GLUCOSE 93 mg/dl (70-220); POTASSIUM 3.6 mmol/L (3.5-5.1); SODIUM 138 mmol/L (135-144); TOTAL PROTEIN 5.8 g/dl (6.1-8.1)
[2018-02-12 10:40] LABS: ANISOCYTOSIS 1+ (0-0); BAND NEUTROPHILS #M 0.4 10^3/ul (0.0-0.6); BAND NEUTROPHILS % (M) 5 % (0-4); BASOPHILS % (M) 1 % (0-2); ERYTHROBLAST% (NRBC) (M) 1 % (0-0); GIANT THROMBO% (M) 10 % (0-0); LYMPHOCYTES #M 0.3 10^3/ul (0.8-2.9); LYMPHOCYTES % (M) 4 % (15-51); MICROCYTOSIS 1+ (0-0); MONOCYTE #M 0.2 10^3/ul (0.3-0.9); MONOCYTES % (M) 3 % (0-11); PLATELET ESTIMATE DECREASED; POIKILOCYTOSIS 1+ (0-0); POLYCHROMASIA 1+ (0-0); SEGMENTED NEUTROPHILS (M) % 87 % (39-77); SMUDGE%M 2 % (0-0)
[2018-02-12] MEDS: LUBIPROSTONE 24 MCG CAP PO ×2 (10:47→21:44)
[2018-02-12] MEDS: NIFEdipine (XL) 30 MG TAB PO ×2 (10:47→21:45)
[2018-02-12 17:30] LABS: OCCULT BLOOD STOOL POSITIVE (NEGATIVE)
[2018-02-12] MEDS: HYDROCODONE/APAP (5/325) TAB PO ×2 (17:50→21:54)
[2018-02-12 18:07] LABS: IMMEDIATE SPIN CROSSMATCH 1 1
[2018-02-12] MEDS: TAMSULOSIN (SR) 0.4 MG CAP PO (21:44)
[2018-02-13] MEDS: HYDROmorphONE 1 MG/ML SYG IV ×4 (01:07→11:47)
[2018-02-13] MEDS: HYDROCODONE/APAP (5/325) TAB PO ×5 (01:08→22:11)
[2018-02-13] MEDS: LORAZEPAM 1 MG TAB PO ×4 (04:31→23:18)
[2018-02-13] MEDS: FUROSEMIDE 20 MG TAB PO ×2 (06:39→17:06)
[2018-02-13] MEDS: ALBUTEROL 0.083% (NEB) 2.5 MG/3 ML AMP HHN ×2 (08:38→12:01)
[2018-02-13] MEDS: LUBIPROSTONE 24 MCG CAP PO ×2 (08:51→20:41)
[2018-02-13] MEDS: LEVOTHYROXINE 100 MCG TAB PO (08:51)
[2018-02-13] MEDS: LEVOFLOXACIN 250 MG TAB PO (08:51)
[2018-02-13] MEDS: METHYLPREDNISOLONE 40 MG INJ IV (08:51)
[2018-02-13] MEDS: FERROUS SULFATE (EC) 325 MG TAB PO (08:54)
[2018-02-13] MEDS: METOPROLOL (XL) 50 MG TAB PO (08:54)
[2018-02-13] MEDS: ALLOPURINOL 100 MG TAB PO (08:54)
[2018-02-13] MEDS: NIFEdipine (XL) 30 MG TAB PO ×2 (08:55→20:41)
[2018-02-13] MEDS: ISOSORBIDE DINITRATE 10 MG TAB PO ×3 (08:55→20:41)
[2018-02-13] MEDS: FOLIC ACID 1 MG TAB PO (08:55)
[2018-02-13] MEDS: HYDROmorphONE 2 MG/ML SYG IV ×3 (14:42→20:45)
[2018-02-13] MEDS: TAMSULOSIN (SR) 0.4 MG CAP PO (20:41)
[2018-02-13] MEDS: METOPROLOL (XL) 25 MG TAB PO (20:43)
[2018-02-14] MEDS: HYDROCODONE/APAP (5/325) TAB PO ×5 (02:08→20:33)
[2018-02-14] MEDS: HYDROmorphONE 2 MG/ML SYG IV ×8 (02:59→22:48)
[2018-02-14] MEDS: FUROSEMIDE 20 MG TAB PO (05:47)
[2018-02-14] MEDS: LUBIPROSTONE 24 MCG CAP PO ×2 (08:25→20:30)
[2018-02-14] MEDS: FOLIC ACID 1 MG TAB PO (08:26)
[2018-02-14] MEDS: ALLOPURINOL 100 MG TAB PO (08:26)
[2018-02-14] MEDS: ISOSORBIDE DINITRATE 10 MG TAB PO ×3 (08:26→20:31)
[2018-02-14] MEDS: FERROUS SULFATE (EC) 325 MG TAB PO (08:26)
[2018-02-14] MEDS: LEVOFLOXACIN 250 MG TAB PO (08:26)
[2018-02-14] MEDS: NIFEdipine (XL) 30 MG TAB PO ×2 (08:26→20:31)
[2018-02-14] MEDS: METOPROLOL (XL) 50 MG TAB PO (08:27)
[2018-02-14] MEDS: LEVOTHYROXINE 100 MCG TAB PO (08:27)
[2018-02-14] MEDS: METHYLPREDNISOLONE 40 MG INJ IV (08:27)
[2018-02-14] MEDS: LORAZEPAM 1 MG TAB PO ×2 (08:37→14:35)
[2018-02-14 15:09] LABS: ADD MAN DIFF? NO
[2018-02-14 15:10] LABS: WHITE BLOOD COUNT 17.5 10^3/ul (4.8-10.8)
[2018-02-14 15:10] LABS: ABNORMAL IP MESSAGE 1; BASOPHILS % 0.2 % (0.0-2.0); EOSINOPHILS # 0.1 10^3/ul (0.0-0.5); EOSINOPHILS % 0.3 % (0.0-7.0); HEMATOCRIT 26.2 % (42.0-52.0); HEMOGLOBIN 8.2 g/dl (14.0-18.0); LYMPHOCYTES # 0.8 10^3/ul (0.8-2.9); LYMPHOCYTES % 4.6 % (15.0-51.0); MEAN CORPUSCULAR HEMOGLOBIN 26.2 pg (29.0-33.0); MEAN CORPUSCULAR HGB CONC 31.3 g/dl (32.0-37.0); MEAN CORPUSCULAR VOLUME 83.7 fl (82.0-101.0); MEAN PLATELET VOLUME 12.9 fl (7.4-10.4); MONOCYTES % 11.3 % (0.0-11.0); NEUTROPHILS % 80.2 % (39.0-77.0); NUCLEATED RED BLOOD CELLS # 0.1 10^3/ul (0.0-0.0); NUCLEATED RED BLOOD CELLS% 0.3 /100WBC (0.0-0.0); PLATELET COUNT 116 10^3/UL (140-415); POSITIVE DIFF @See below; RED BLOOD COUNT 3.13 10^6/ul (4.70-6.10); RED CELL DISTRIBUTION WIDTH 20.6 % (11.5-14.5)
[2018-02-14] MEDS: FUROSEMIDE 20 MG INJ IV (18:32)
[2018-02-14] MEDS: TAMSULOSIN (SR) 0.4 MG CAP PO (20:30)
[2018-02-14] MEDS: DOXYCYCLINE 100 MG TAB PO (20:30)
[2018-02-14] MEDS: METOPROLOL (XL) 25 MG TAB PO (20:32)
[2018-02-15] MEDS: FUROSEMIDE 20 MG INJ IV ×2 (06:34→17:46)
[2018-02-15] MEDS: HYDROmorphONE 2 MG/ML SYG IV ×5 (06:43→19:04)
[2018-02-15 06:45] LABS: ADD MAN DIFF? NO
[2018-02-15 06:54] LABS: HEMATOCRIT 25.3 % (42.0-52.0); RED BLOOD COUNT 3.04 10^6/ul (4.70-6.10)
[2018-02-15 06:54] LABS: WHITE BLOOD COUNT 12.1 10^3/ul (4.8-10.8)
[2018-02-15 06:55] LABS: ABNORMAL IP MESSAGE 1; BASOPHILS % 0.2 % (0.0-2.0); EOSINOPHILS # 0.1 10^3/ul (0.0-0.5); EOSINOPHILS % 1.1 % (0.0-7.0); LYMPHOCYTES # 0.5 10^3/ul (0.8-2.9); LYMPHOCYTES % 4.5 % (15.0-51.0); MEAN CORPUSCULAR HEMOGLOBIN 26.3 pg (29.0-33.0); MEAN CORPUSCULAR HGB CONC 31.6 g/dl (32.0-37.0); MEAN CORPUSCULAR VOLUME 83.2 fl (82.0-101.0); MONOCYTE # 1.7 10^3/ul (0.3-0.9); MONOCYTES % 14.4 % (0.0-11.0); NEUTROPHIL # 9.4 10^3/ul (1.6-7.5); NEUTROPHILS % 77.8 % (39.0-77.0); NUCLEATED RED BLOOD CELLS% 0.2 /100WBC (0.0-0.0); PLATELET COUNT 96 10^3/UL (140-415); POSITIVE DIFF @See below; RED CELL DISTRIBUTION WIDTH 20.2 % (11.5-14.5)
[2018-02-15 07:34] LABS: ANION GAP 14 (8-16); BLOOD UREA NITROGEN 51 mg/dl (7-20); CALCIUM 6.4 mg/dl (8.4-10.2); CARBON DIOXIDE 22 mmol/L (21-31); CHLORIDE 103 mmol/L (97-110); CREATININE 1.87 mg/dl (0.61-1.24); GLUCOSE 84 mg/dl (70-220); POTASSIUM 3.4 mmol/L (3.5-5.1); SODIUM 136 mmol/L (135-144)
[2018-02-15] MEDS: LEVOTHYROXINE 100 MCG TAB PO (09:48)
[2018-02-15] MEDS: METHYLPREDNISOLONE 40 MG INJ IV (09:48)
[2018-02-15] MEDS: NIFEdipine (XL) 30 MG TAB PO ×2 (09:49→20:37)
[2018-02-15] MEDS: ALLOPURINOL 100 MG TAB PO (09:49)
[2018-02-15] MEDS: ISOSORBIDE DINITRATE 10 MG TAB PO ×3 (09:49→20:37)
[2018-02-15] MEDS: LUBIPROSTONE 24 MCG CAP PO ×2 (09:49→20:36)
[2018-02-15] MEDS: METOPROLOL (XL) 50 MG TAB PO (09:49)
[2018-02-15] MEDS: FOLIC ACID 1 MG TAB PO (09:49)
[2018-02-15] MEDS: DOXYCYCLINE 100 MG TAB PO ×2 (09:49→20:33)
[2018-02-15] MEDS: FERROUS SULFATE (EC) 325 MG TAB PO (09:49)
[2018-02-15] MEDS: LORAZEPAM 1 MG TAB PO ×2 (11:17→17:46)
[2018-02-15] MEDS: HYDROCODONE/APAP (5/325) TAB PO ×2 (11:17→17:46)
[2018-02-15] MEDS: TAMSULOSIN (SR) 0.4 MG CAP PO (20:36)
[2018-02-15] MEDS: METOPROLOL (XL) 25 MG TAB PO (20:38)
[2018-02-16] MEDS: HYDROmorphONE 2 MG/ML SYG IV ×5 (00:10→20:35)
[2018-02-16] MEDS: FUROSEMIDE 20 MG INJ IV ×2 (06:42→16:48)
[2018-02-16] MEDS: FOLIC ACID 1 MG TAB PO (09:34)
[2018-02-16] MEDS: ALLOPURINOL 100 MG TAB PO (09:35)
[2018-02-16] MEDS: LEVOTHYROXINE 100 MCG TAB PO (09:35)
[2018-02-16] MEDS: DOXYCYCLINE 100 MG TAB PO ×2 (09:35→20:35)
[2018-02-16] MEDS: NIFEdipine (XL) 30 MG TAB PO ×2 (09:35→20:34)
[2018-02-16] MEDS: FERROUS SULFATE (EC) 325 MG TAB PO (09:36)
[2018-02-16] MEDS: ISOSORBIDE DINITRATE 10 MG TAB PO ×3 (09:36→20:34)
[2018-02-16] MEDS: LUBIPROSTONE 24 MCG CAP PO ×2 (09:36→20:34)
[2018-02-16] MEDS: METHYLPREDNISOLONE 40 MG INJ IV (09:36)
[2018-02-16] MEDS: METOPROLOL (XL) 50 MG TAB PO (09:36)
[2018-02-16] MEDS: LORAZEPAM 1 MG TAB PO (09:46)
[2018-02-16] MEDS: ALBUTEROL 0.083% (NEB) 2.5 MG/3 ML AMP HHN (10:01)
[2018-02-16 14:33] LABS: WHITE BLOOD COUNT 13.9 10^3/ul (4.8-10.8)
[2018-02-16 14:33] LABS: ABNORMAL IP MESSAGE 1; ADD MAN DIFF? NO; BASOPHILS % 0.2 % (0.0-2.0); EOSINOPHILS % 0.3 % (0.0-7.0); HEMOGLOBIN 7.8 g/dl (14.0-18.0); LYMPHOCYTES # 0.5 10^3/ul (0.8-2.9); LYMPHOCYTES % 3.8 % (15.0-51.0); MEAN CORPUSCULAR HEMOGLOBIN 26.9 pg (29.0-33.0); MEAN CORPUSCULAR HGB CONC 32.5 g/dl (32.0-37.0); MEAN CORPUSCULAR VOLUME 82.8 fl (82.0-101.0); MEAN PLATELET VOLUME 11.6 fl (7.4-10.4); MONOCYTE # 0.8 10^3/ul (0.3-0.9); MONOCYTES % 5.8 % (0.0-11.0); NEUTROPHILS % 86.6 % (39.0-77.0); NUCLEATED RED BLOOD CELLS% 0.2 /100WBC (0.0-0.0); POSITIVE DIFF @See below; RED CELL DISTRIBUTION WIDTH 20.8 % (11.5-14.5)
[2018-02-16 14:37] LABS: PLATELET COUNT 120 10^3/UL (140-415)
[2018-02-16 14:58] LABS: ANION GAP 14 (8-16); BLOOD UREA NITROGEN 51 mg/dl (7-20); CALCIUM 6.3 mg/dl (8.4-10.2); CARBON DIOXIDE 22 mmol/L (21-31); CHLORIDE 103 mmol/L (97-110); CREATININE 1.91 mg/dl (0.61-1.24); GLUCOSE 180 mg/dl (70-220); POTASSIUM 3.7 mmol/L (3.5-5.1); SODIUM 135 mmol/L (135-144)
[2018-02-16] MEDS: HYDROCODONE/APAP (5/325) TAB PO (18:31)
[2018-02-16] MEDS: TAMSULOSIN (SR) 0.4 MG CAP PO (20:34)
[2018-02-16] MEDS: METOPROLOL (XL) 25 MG TAB PO (20:35)
[2018-02-17] MEDS: HYDROmorphONE 2 MG/ML SYG IV ×4 (00:08→13:18)
[2018-02-17] MEDS: LORAZEPAM 1 MG TAB PO ×2 (00:15→09:42)
[2018-02-17] MEDS: ALBUTEROL 0.083% (NEB) 2.5 MG/3 ML AMP HHN (05:08)
[2018-02-17] MEDS: FUROSEMIDE 20 MG INJ IV ×2 (06:41→17:46)
[2018-02-17 07:25] LABS: ADD MAN DIFF? NO
[2018-02-17 07:29] LABS: BASOPHILS % 0.2 % (0.0-2.0); EOSINOPHILS % 0.2 % (0.0-7.0); HEMATOCRIT 23.8 % (42.0-52.0); HEMOGLOBIN 7.6 g/dl (14.0-18.0); LYMPHOCYTES # 0.8 10^3/ul (0.8-2.9); MEAN CORPUSCULAR HEMOGLOBIN 26.4 pg (29.0-33.0); MEAN CORPUSCULAR HGB CONC 31.9 g/dl (32.0-37.0); MEAN CORPUSCULAR VOLUME 82.6 fl (82.0-101.0); MEAN PLATELET VOLUME 11.3 fl (7.4-10.4); MONOCYTE # 1.3 10^3/ul (0.3-0.9); MONOCYTES % 9.9 % (0.0-11.0); NEUTROPHIL # 10.6 10^3/ul (1.6-7.5); PLATELET COUNT 110 10^3/UL (140-415); RED BLOOD COUNT 2.88 10^6/ul (4.70-6.10); RED CELL DISTRIBUTION WIDTH 21.1 % (11.5-14.5)
[2018-02-17 07:29] LABS: WHITE BLOOD COUNT 13.1 10^3/ul (4.8-10.8)
[2018-02-17 08:48] LABS: ANION GAP 14 (8-16); BLOOD UREA NITROGEN 56 mg/dl (7-20); CALCIUM 6.4 mg/dl (8.4-10.2); CARBON DIOXIDE 24 mmol/L (21-31); CHLORIDE 103 mmol/L (97-110); CREATININE 1.69 mg/dl (0.61-1.24); GLUCOSE 103 mg/dl (70-220); POTASSIUM 3.3 mmol/L (3.5-5.1); SODIUM 138 mmol/L (135-144)
[2018-02-17] MEDS: METHYLPREDNISOLONE 40 MG INJ IV (09:40)
[2018-02-17] MEDS: LUBIPROSTONE 24 MCG CAP PO ×2 (09:40→20:21)
[2018-02-17] MEDS: DOXYCYCLINE 100 MG TAB PO ×2 (09:40→20:22)
[2018-02-17] MEDS: ALLOPURINOL 100 MG TAB PO (09:40)
[2018-02-17] MEDS: LEVOTHYROXINE 100 MCG TAB PO (09:40)
[2018-02-17] MEDS: FERROUS SULFATE (EC) 325 MG TAB PO (09:40)
[2018-02-17] MEDS: FOLIC ACID 1 MG TAB PO (09:41)
[2018-02-17] MEDS: NIFEdipine (XL) 30 MG TAB PO ×2 (09:41→20:22)
[2018-02-17] MEDS: METOPROLOL (XL) 50 MG TAB PO (09:41)
[2018-02-17] MEDS: ISOSORBIDE DINITRATE 10 MG TAB PO ×3 (09:41→20:23)
[2018-02-17] MEDS ORDERED: MAGNESIUM SULFATE 3 GM in DEXTROSE 5% 100 ML IVPB (10:30)
[2018-02-17] MEDS: HYDROCODONE/APAP (5/325) TAB PO ×3 (10:51→20:22)
[2018-02-17] MEDS: SOD CHLORIDE 0.9% 1,000 ML IV (13:17)
[2018-02-17] MEDS: POTASSIUM CHLORIDE 100 ML IVPB ×2 (13:17→16:44)
[2018-02-17] MEDS: MAGNESIUM SULFATE 1 GM/D5W 100 ML IVPB ×3 (15:30→21:14)
[2018-02-17] MEDS: HYDROmorphONE 1 MG/ML SYG IV ×2 (17:46→21:11)
[2018-02-17] MEDS: TAMSULOSIN (SR) 0.4 MG CAP PO (20:22)
[2018-02-17] MEDS: METOPROLOL (XL) 25 MG TAB PO (20:22)
[2018-02-18] MEDS: HYDROmorphONE 1 MG/ML SYG IV ×7 (00:12→22:56)
[2018-02-18] MEDS: HYDROCODONE/APAP (5/325) TAB PO ×2 (01:09→21:23)
[2018-02-18] MEDS: LORAZEPAM 1 MG TAB PO (02:24)
[2018-02-18] MEDS: FUROSEMIDE 20 MG INJ IV ×2 (06:16→18:09)
[2018-02-18 08:29] LABS: MAGNESIUM 1.1 mg/dl (1.7-2.5)
[2018-02-18] MEDS: METHYLPREDNISOLONE 40 MG INJ IV (09:38)
[2018-02-18] MEDS: PROPOFOL 20 ML (12:44)
[2018-02-18] MEDS: ISOSORBIDE DINITRATE 10 MG TAB PO ×3 (13:00→21:24)
[2018-02-18] MEDS ORDERED: FENTAnyl 50 MCG/ML VIAL IV (13:30)
[2018-02-18] MEDS ORDERED: hydrALAzine 20 MG INJ IV (13:30)
[2018-02-18] MEDS ORDERED: LABETALOL HCL 20MG INJ IV (13:30)
[2018-02-18] MEDS ORDERED: MEPERIDINE 25 MG INJ IV (13:30)
[2018-02-18] MEDS ORDERED: DIPHENHYDRAMINE 50 MG INJ IV (13:30)
[2018-02-18] MEDS ORDERED: EPHEDrine SULFATE 50 MG/5 ML SYG IV (13:30)
[2018-02-18] MEDS ORDERED: MIDAZOLAM 1 MG/ML 2 ML INJ IV (13:30)
[2018-02-18] MEDS: LUBIPROSTONE 24 MCG CAP PO ×2 (14:31→21:25)
[2018-02-18] MEDS: LEVOTHYROXINE 100 MCG TAB PO (14:31)
[2018-02-18] MEDS: FERROUS SULFATE (EC) 325 MG TAB PO (14:31)
[2018-02-18] MEDS: FOLIC ACID 1 MG TAB PO (14:31)
[2018-02-18] MEDS: ALLOPURINOL 100 MG TAB PO (14:32)
[2018-02-18] MEDS: DOXYCYCLINE 100 MG TAB PO ×2 (14:32→21:24)
[2018-02-18] MEDS: NIFEdipine (XL) 30 MG TAB PO ×2 (14:33→21:24)
[2018-02-18] MEDS: METOPROLOL (XL) 50 MG TAB PO (14:33)
[2018-02-18] MEDS ORDERED: MAGNESIUM SULFATE 4 GM/100 ML 100 ML IVPB (17:00)
[2018-02-18] MEDS: MAG SULFATE 2GM IN 50 ML IVPB ×2 (18:06→21:25)
[2018-02-18] MEDS: SOD CHLORIDE 0.9% 1,000 ML IV (18:18)
[2018-02-18] MEDS: METOPROLOL (XL) 25 MG TAB PO (21:24)
[2018-02-18] MEDS: TAMSULOSIN (SR) 0.4 MG CAP PO (21:25)
[2018-02-19] MEDS: LORAZEPAM 1 MG TAB PO ×3 (01:30→18:15)
[2018-02-19] MEDS: HYDROmorphONE 1 MG/ML SYG IV ×5 (03:43→21:20)
[2018-02-19] MEDS: SOD CHLORIDE 0.9% 1,000 ML IV ×2 (05:00)
[2018-02-19] MEDS: PANTOPRAZOLE 40 MG INJ IV (05:06)
[2018-02-19] MEDS: FUROSEMIDE 20 MG INJ IV ×2 (05:06→17:15)
[2018-02-19] MEDS: HYDROCODONE/APAP (5/325) TAB PO ×4 (05:07→20:13)
[2018-02-19] MEDS: METHYLPREDNISOLONE 40 MG INJ IV (08:10)
[2018-02-19] MEDS: NIFEdipine (XL) 30 MG TAB PO ×2 (08:12→20:14)
[2018-02-19] MEDS: LUBIPROSTONE 24 MCG CAP PO ×2 (08:12→20:12)
[2018-02-19] MEDS: FERROUS SULFATE (EC) 325 MG TAB PO (08:12)
[2018-02-19] MEDS: METOPROLOL (XL) 50 MG TAB PO (08:13)
[2018-02-19] MEDS: ALLOPURINOL 100 MG TAB PO (08:13)
[2018-02-19] MEDS: DOXYCYCLINE 100 MG TAB PO ×2 (08:13→20:12)
[2018-02-19] MEDS: LEVOTHYROXINE 100 MCG TAB PO (08:13)
[2018-02-19] MEDS: ISOSORBIDE DINITRATE 10 MG TAB PO ×3 (08:14→20:14)
[2018-02-19] MEDS: FOLIC ACID 1 MG TAB PO (08:14)
[2018-02-19 08:50] LABS: ABNORMAL IP MESSAGE 1; HEMATOCRIT 28.3 % (42.0-52.0); MEAN CORPUSCULAR HEMOGLOBIN 26.8 pg (29.0-33.0); MEAN CORPUSCULAR HGB CONC 31.8 g/dl (32.0-37.0); MEAN CORPUSCULAR VOLUME 84.2 fl (82.0-101.0); MEAN PLATELET VOLUME 11.6 fl (7.4-10.4); NUCLEATED RED BLOOD CELLS% 0.2 /100WBC (0.0-0.0); PLATELET COUNT 218 10^3/UL (140-415); POSITIVE DIFF @See below; RED BLOOD COUNT 3.36 10^6/ul (4.70-6.10); RED CELL DISTRIBUTION WIDTH 21.6 % (11.5-14.5)
[2018-02-19 08:50] LABS: WHITE BLOOD COUNT 16.4 10^3/ul (4.8-10.8)
[2018-02-19 08:53] LABS: ADD MAN DIFF? YES
[2018-02-19] MEDS: FLUCONAZOLE 100 MG TAB GTB (09:26)
[2018-02-19 10:16] LABS: ANISOCYTOSIS 1+ (0-0); BAND NEUTROPHILS #M 0.3 10^3/ul (0.0-0.6); BAND NEUTROPHILS % (M) 2 % (0-4); BASOPHIL #M 0.1 10^3/ul (0.0-0.0); BASOPHILS % (M) 1 % (0-2); GIANT THROMBO% (M) 1 % (0-0); LYMPHOCYTES #M 0.6 10^3/ul (0.8-2.9); LYMPHOCYTES % (M) 4 % (15-51); MICROCYTOSIS 1+ (0-0); MONOCYTE #M 0.8 10^3/ul (0.3-0.9); MONOCYTES % (M) 5 % (0-11); PLATELET ESTIMATE NORMAL; POIKILOCYTOSIS 1+ (0-0); POLYCHROMASIA 3+ (0-0); SEG NEUT #M 14.5 10^3/ul (1.6-7.5); SEGMENTED NEUTROPHILS (M) % 88 % (39-77); SMUDGE%M 15 % (0-0)
[2018-02-19 10:52] LABS: ANION GAP 16 (8-16); BLOOD UREA NITROGEN 54 mg/dl (7-20); CALCIUM 7.6 mg/dl (8.4-10.2); CARBON DIOXIDE 22 mmol/L (21-31); CHLORIDE 106 mmol/L (97-110); CREATININE 1.55 mg/dl (0.61-1.24); GLUCOSE 85 mg/dl (70-220); POTASSIUM 3.7 mmol/L (3.5-5.1); SODIUM 140 mmol/L (135-144)
[2018-02-19] MEDS: TAMSULOSIN (SR) 0.4 MG CAP PO (20:12)
[2018-02-19] MEDS: METOPROLOL (XL) 25 MG TAB PO (20:14)
[2018-02-20] MEDS: LORAZEPAM 1 MG TAB PO ×4 (00:27→23:38)
[2018-02-20] MEDS: HYDROCODONE/APAP (5/325) TAB PO ×5 (00:27→18:06)
[2018-02-20] MEDS: SOD CHLORIDE 0.9% 1,000 ML IV ×2 (00:28→20:57)
[2018-02-20] MEDS: HYDROmorphONE 1 MG/ML SYG IV ×6 (01:32→23:38)
[2018-02-20] MEDS: PANTOPRAZOLE 40 MG INJ IV (05:42)
[2018-02-20] MEDS: FUROSEMIDE 20 MG INJ IV ×2 (05:43→18:06)
[2018-02-20] MEDS: LEVOTHYROXINE 100 MCG TAB PO (08:23)
[2018-02-20] MEDS: FERROUS SULFATE (EC) 325 MG TAB PO (08:23)
[2018-02-20] MEDS: ISOSORBIDE DINITRATE 10 MG TAB PO ×3 (08:23→20:56)
[2018-02-20] MEDS: METOPROLOL (XL) 50 MG TAB PO (08:23)
[2018-02-20] MEDS: ALLOPURINOL 100 MG TAB PO (08:23)
[2018-02-20] MEDS: FOLIC ACID 1 MG TAB PO (08:23)
[2018-02-20] MEDS: LUBIPROSTONE 24 MCG CAP PO ×2 (08:23→20:56)
[2018-02-20] MEDS: METHYLPREDNISOLONE 40 MG INJ IV (08:24)
[2018-02-20] MEDS: NIFEdipine (XL) 30 MG TAB PO ×2 (08:24→20:56)
[2018-02-20] MEDS: DOXYCYCLINE 100 MG TAB PO ×2 (08:24→20:56)
[2018-02-20 11:31] LABS: ABNORMAL IP MESSAGE 1; HEMATOCRIT 24.6 % (42.0-52.0); HEMOGLOBIN 7.6 g/dl (14.0-18.0); MEAN CORPUSCULAR HEMOGLOBIN 26.4 pg (29.0-33.0); MEAN CORPUSCULAR HGB CONC 30.9 g/dl (32.0-37.0); MEAN CORPUSCULAR VOLUME 85.4 fl (82.0-101.0); MEAN PLATELET VOLUME 12.3 fl (7.4-10.4); NUCLEATED RED BLOOD CELLS% 0.1 /100WBC (0.0-0.0); PLATELET COUNT 302 10^3/UL (140-415); POSITIVE DIFF @See below; RED BLOOD COUNT 2.88 10^6/ul (4.70-6.10)
[2018-02-20 11:32] LABS: ADD MAN DIFF? YES
[2018-02-20 11:54] LABS: MAGNESIUM 1.4 mg/dl (1.7-2.5)
[2018-02-20 12:06] LABS: ANION GAP 14 (8-16); BLOOD UREA NITROGEN 60 mg/dl (7-20); CALCIUM 7.5 mg/dl (8.4-10.2); CARBON DIOXIDE 24 mmol/L (21-31); CHLORIDE 102 mmol/L (97-110); CREATININE 1.88 mg/dl (0.61-1.24); GLUCOSE 126 mg/dl (70-220); SODIUM 136 mmol/L (135-144)
[2018-02-20 13:01] LABS: ANISOCYTOSIS 1+ (0-0); BAND NEUTROPHILS #M 0.1 10^3/ul (0.0-0.6); BAND NEUTROPHILS % (M) 1 % (0-4); BASOPHIL #M 0.1 10^3/ul (0.0-0.0); BASOPHILS % (M) 1 % (0-2); EOSINOPHILS % (M) 2 % (0-7); ERYTHROBLAST% (NRBC) (M) 1 % (0-0); GIANT THROMBO% (M) 1 % (0-0); LYMPHOCYTES #M 0.4 10^3/ul (0.8-2.9); LYMPHOCYTES % (M) 3 % (15-51); METAMYELOCYTES #M 0.3 10^3/ul (0.0-0.0); METAMYELOCYTES %M 2 % (0-0); MONOCYTE #M 0.6 10^3/ul (0.3-0.9); MONOCYTES % (M) 4 % (0-11); MYELOCYTES #M 0.4 10^3/ul (0.0-0.0); MYELOCYTES % (M) 3 % (0-0); PLATELET ESTIMATE NORMAL; POIKILOCYTOSIS 2+ (0-0); POLYCHROMASIA 2+ (0-0); PROMYELOCYTES #M 0.1 10^3/ul (0-0); PROMYELOCYTES % (M) 1 % (0-0); SEG NEUT #M 12.5 10^3/ul (1.6-7.5); SEGMENTED NEUTROPHILS (M) % 83 % (39-77); SMUDGE%M 11 % (0-0)
[2018-02-20] MEDS: MAGNESIUM SULFATE 2 GM/50 ML 50 ML IVPB (14:22)
[2018-02-20] MEDS: METOPROLOL (XL) 25 MG TAB PO (20:55)
[2018-02-20] MEDS: TAMSULOSIN (SR) 0.4 MG CAP PO (20:56)
[2018-02-21] MEDS: ALBUTEROL 0.083% (NEB) 2.5 MG/3 ML AMP HHN (00:17)
[2018-02-21] MEDS: HYDROCODONE/APAP (5/325) TAB PO ×3 (03:00→13:50)
[2018-02-21] MEDS: HYDROmorphONE 1 MG/ML SYG IV ×4 (04:13→17:06)
[2018-02-21 04:41] LABS: OCCULT BLOOD STOOL POSITIVE (NEGATIVE)
[2018-02-21] MEDS: PANTOPRAZOLE 40 MG INJ IV (05:49)
[2018-02-21] MEDS: FUROSEMIDE 20 MG INJ IV ×2 (05:50→18:05)
[2018-02-21] MEDS: LORAZEPAM 1 MG TAB PO ×2 (06:03→15:56)
[2018-02-21] MEDS: ALLOPURINOL 100 MG TAB PO (08:14)
[2018-02-21] MEDS: DOXYCYCLINE 100 MG TAB PO (08:14)
[2018-02-21] MEDS: METHYLPREDNISOLONE 40 MG INJ IV (08:14)
[2018-02-21] MEDS: LEVOTHYROXINE 100 MCG TAB PO (08:14)
[2018-02-21] MEDS: METOPROLOL (XL) 50 MG TAB PO (08:14)
[2018-02-21] MEDS: FOLIC ACID 1 MG TAB PO (08:14)
[2018-02-21] MEDS: LUBIPROSTONE 24 MCG CAP PO (08:14)
[2018-02-21] MEDS: NIFEdipine (XL) 30 MG TAB PO (08:14)
[2018-02-21] MEDS: FERROUS SULFATE (EC) 325 MG TAB PO (08:15)
[2018-02-21] MEDS: ISOSORBIDE DINITRATE 10 MG TAB PO ×2 (08:15→12:50)
[2018-02-21 09:26] LABS: ADD MAN DIFF? NO
[2018-02-21 09:33] LABS: WHITE BLOOD COUNT 22.1 10^3/ul (4.8-10.8)
[2018-02-21 09:33] LABS: ABNORMAL IP MESSAGE 1; BASOPHILS % 0.2 % (0.0-2.0); EOSINOPHILS # 0.1 10^3/ul (0.0-0.5); EOSINOPHILS % 0.2 % (0.0-7.0); HEMATOCRIT 25.8 % (42.0-52.0); HEMOGLOBIN 7.9 g/dl (14.0-18.0); LYMPHOCYTES # 1.3 10^3/ul (0.8-2.9); LYMPHOCYTES % 6.1 % (15.0-51.0); MEAN CORPUSCULAR HGB CONC 30.6 g/dl (32.0-37.0); MEAN CORPUSCULAR VOLUME 84.9 fl (82.0-101.0); MEAN PLATELET VOLUME 12.6 fl (7.4-10.4); MONOCYTE # 3.2 10^3/ul (0.3-0.9); MONOCYTES % 14.5 % (0.0-11.0); NEUTROPHIL # 16.4 10^3/ul (1.6-7.5); NEUTROPHILS % 74.1 % (39.0-77.0); NUCLEATED RED BLOOD CELLS% 0.1 /100WBC (0.0-0.0); PLATELET COUNT 414 10^3/UL (140-415); POSITIVE DIFF @See below; RED BLOOD COUNT 3.04 10^6/ul (4.70-6.10); RED CELL DISTRIBUTION WIDTH 22.3 % (11.5-14.5)
[2018-02-21 10:04] LABS: IRON 54 ug/dl (35-150)
[2018-02-21 10:14] LABS: % IRON SATURATION 18 % SAT (22-52); TOTAL IRON BINDING CAPACITY 303 ug/dl (241-421)
[2018-02-21 10:16] LABS: ANION GAP 16 (8-16); BLOOD UREA NITROGEN 60 mg/dl (7-20); CALCIUM 8.2 mg/dl (8.4-10.2); CARBON DIOXIDE 23 mmol/L (21-31); CHLORIDE 104 mmol/L (97-110); CREATININE 1.84 mg/dl (0.61-1.24); GLUCOSE 101 mg/dl (70-220); POTASSIUM 3.9 mmol/L (3.5-5.1); SODIUM 139 mmol/L (135-144)
[2018-02-21 13:47] LABS: FOLATE 19.7 ng/ml (2.8-20.0)
[2018-02-21 15:28] LABS: MAGNESIUM 1.5 mg/dl (1.7-2.5)
[2018-02-21] MEDS: SOD CHLORIDE 0.9% 1,000 ML IV ×2 (16:17→17:05)
== END 2018-02-21 19:00 | disposition left against medical advice (07) | DRG 432 ==
LOC: E/R 12:08 → MS4 14:20
PROC: 0W9G3ZZ Drainage of Peritoneal Cavity, Percutaneous Approach (ICD-10-PCS; principal; 2018-02-18 12:11)
PROC: 30233N1 Transfusion of Nonautologous Red Blood Cells into Peripheral Vein, Percutaneous Approach (ICD-10-PCS; 2018-02-18 12:11)
PROC: 0DJ08ZZ Inspection of Upper Intestinal Tract, Via Natural or Artificial Opening Endoscopic (ICD-10-PCS; 2018-02-18 12:11)
DX: K70.31 Alcoholic cirrhosis of liver with ascites (principal); K65.2 Spontaneous bacterial peritonitis; I50.33 Acute on chronic diastolic (congestive) heart failure; N17.9 Acute kidney failure, unspecified; J44.1 Chronic obstructive pulmonary disease with (acute) exacerbation; L03.116 Cellulitis of left lower limb; L03.115 Cellulitis of right lower limb; A04.8 Other specified bacterial intestinal infections; B37.89 Other sites of candidiasis; R65.10 Systemic inflammatory response syndrome (SIRS) of non-infectious origin without acute organ dysfunction; B37.81 Candidal esophagitis; I85.10 Secondary esophageal varices without bleeding; I11.0 Hypertensive heart disease with heart failure; Z72.0 Tobacco use; R19.7 Diarrhea, unspecified; Z91.19 Patient's noncompliance with other medical treatment and regimen; I25.10 Atherosclerotic heart disease of native coronary artery without angina pectoris; R11.0 Nausea; R07.9 Chest pain, unspecified; F10.10 Alcohol abuse, uncomplicated; Z16.24 Resistance to multiple antibiotics; E66.9 Obesity, unspecified; Z68.32 Body mass index [BMI] 32.0-32.9, adult; E03.9 Hypothyroidism, unspecified; K31.89 Other diseases of stomach and duodenum; K29.80 Duodenitis without bleeding; K29.60 Other gastritis without bleeding; B95.2 Enterococcus as the cause of diseases classified elsewhere; Z16.21 Resistance to vancomycin; D64.9 Anemia, unspecified; K44.9 Diaphragmatic hernia without obstruction or gangrene; K26.9 Duodenal ulcer, unspecified as acute or chronic, without hemorrhage or perforation; E87.6 Hypokalemia
CPT/HCPCS: 36415; 36430; 71045; 80048; 80053; 80061; 82270; 82550; 82553; 82607; 82728; 82746; 83540; 83690; 83735; 83880; 84439; 84443; 84484; 85025; 85610; 85730; 86850; 86900; 86901; 86920; 87045; 87075; 93005; 93970; 94640; 94644; 94664; 96374; 97116; 97161; 99285-25; G0378

== ENCOUNTER 2018-02-28 12:42 | Inpatient (IN) | payer BC ==
[2018-02-28 13:30] LABS: ADD MAN DIFF? NO
[2018-02-28 13:36] LABS: ABNORMAL IP MESSAGE 1; BASOPHIL # 0.1 10^3/ul (0.0-0.1); BASOPHILS % 0.8 % (0.0-2.0); EOSINOPHILS # 0.5 10^3/ul (0.0-0.5); EOSINOPHILS % 2.8 % (0.0-7.0); HEMATOCRIT 25.6 % (42.0-52.0); LYMPHOCYTES % 6.1 % (15.0-51.0); MEAN CORPUSCULAR HEMOGLOBIN 26.9 pg (29.0-33.0); MEAN CORPUSCULAR HGB CONC 31.3 g/dl (32.0-37.0); MEAN CORPUSCULAR VOLUME 86.2 fl (82.0-101.0); MEAN PLATELET VOLUME 12.1 fl (7.4-10.4); MONOCYTE # 2.1 10^3/ul (0.3-0.9); MONOCYTES % 13.1 % (0.0-11.0); NEUTROPHIL # 12.1 10^3/ul (1.6-7.5); PLATELET COUNT 345 10^3/UL (140-415); POSITIVE DIFF @See below; RED BLOOD COUNT 2.97 10^6/ul (4.70-6.10); RED CELL DISTRIBUTION WIDTH 22.8 % (11.5-14.5)
[2018-02-28 13:36] LABS: WHITE BLOOD COUNT 16.1 10^3/ul (4.8-10.8)
[2018-02-28] MEDS: ONDANSETRON (ODT) 4 MG TAB ODT (13:36)
[2018-02-28] MEDS: HYDROCODONE/APAP (10/325) TAB PO (13:36)
[2018-02-28 13:53] LABS: ALANINE AMINOTRANSFERASE 37 IU/L (13-69); ALBUMIN 3.4 g/dl (3.3-4.9); ALBUMIN/GLOBULIN RATIO 1.17; ALKALINE PHOSPHATASE 150 IU/L (42-121); ANION GAP 20 (8-16); ASPARTATE AMINO TRANSFERASE 23 IU/L (15-46); BILIRUBIN,INDIRECT 0.7 mg/dl (0-1.1); BILIRUBIN,TOTAL 0.7 mg/dl (0.2-1.3); BLOOD UREA NITROGEN 52 mg/dl (7-20); CALCIUM 8.4 mg/dl (8.4-10.2); CARBON DIOXIDE 20 mmol/L (21-31); CHLORIDE 103 mmol/L (97-110); CREATININE 2.12 mg/dl (0.61-1.24); GLUCOSE 118 mg/dl (70-220); LIPASE 63 U/L (23-300); POTASSIUM 4.2 mmol/L (3.5-5.1); SODIUM 139 mmol/L (135-144); TOTAL PROTEIN 6.3 g/dl (6.1-8.1)
[2018-02-28 14:04] LABS: TROPONIN-I < 0.010 ng/ml (0.000-0.120)
[2018-02-28] MEDS ORDERED: ONDANSETRON 4 MG INJ IV ×2 (15:00→18:00)
[2018-02-28] MEDS ORDERED: ACETAMINOPHEN 325 MG TAB PO ×2 (15:00→18:00)
[2018-02-28 15:18] LABS: ADD UMIC NO; UR ASCORBIC ACID NEGATIVE (NEGATIVE); UR BILIRUBIN (Dip) NEGATIVE (NEGATIVE); UR BLOOD (Dip) NEGATIVE (NEGATIVE); UR CLARITY CLEAR (CLEAR); UR COLOR YELLOW (YELLOW); UR GLUCOSE (Dip) NEGATIVE (NEGATIVE); UR KETONES (Dip) NEGATIVE (NEGATIVE); UR LEUKOCYTE ESTERASE (Dip) NEGATIVE Leu/ul (NEGATIVE); UR NITRITE (Dip) NEGATIVE (NEGATIVE); UR SPECIFIC GRAVITY (Dip) 1.014 (1.003-1.030); UR TOTAL PROTEIN (Dip) NEGATIVE (NEGATIVE); UR UROBILINOGEN (Dip) 1+ mg/dL (NEGATIVE)
[2018-02-28 15:53] LABS: LACTIC ACID 3.3 mmol/L (0.5-2.0)
[2018-02-28] MEDS: LIDOCAINE 1% (MDV) 10 ML INJ (16:04)
[2018-02-28] MEDS: CEFEPIME 1GM/50 ML (PMX) 50 ML IVPB (16:34)
[2018-02-28] MEDS: VANCOMYCIN 1 GM (PMX) 250 ML IVPB (17:11)
[2018-02-28] MEDS: traMADol 50 MG TAB PO (17:15)
[2018-02-28] MEDS: LORAZEPAM 2 MG INJ IV (17:24)
[2018-02-28] MEDS ORDERED: NACL 0.9% 3 ML SYG IV (18:00)
[2018-02-28] MEDS: SOD CHLORIDE 0.9% 1,000 ML IV (18:55)
[2018-02-28 20:41] LABS: LACTIC ACID 2.3 mmol/L (0.5-2.0)
[2018-02-28] MEDS: FAMOTIDINE 20 MG INJ IV (22:57)
[2018-03-01 01:13] LABS: LACTIC ACID 1.6 mmol/L (0.5-2.0)
[2018-03-01] MEDS: SOD CHLORIDE 0.9% 1,000 ML IV ×3 (04:53→23:58)
[2018-03-01 08:07] LABS: ADD MAN DIFF? NO
[2018-03-01 08:19] LABS: ABNORMAL IP MESSAGE 1; BASOPHIL # 0.1 10^3/ul (0.0-0.1); BASOPHILS % 0.5 % (0.0-2.0); EOSINOPHILS # 0.1 10^3/ul (0.0-0.5); EOSINOPHILS % 0.3 % (0.0-7.0); HEMATOCRIT 26.7 % (42.0-52.0); LYMPHOCYTES # 0.6 10^3/ul (0.8-2.9); LYMPHOCYTES % 3.7 % (15.0-51.0); MEAN CORPUSCULAR HEMOGLOBIN 26.8 pg (29.0-33.0); MEAN CORPUSCULAR VOLUME 89.3 fl (82.0-101.0); MEAN PLATELET VOLUME 12.1 fl (7.4-10.4); MONOCYTE # 1.7 10^3/ul (0.3-0.9); MONOCYTES % 10.8 % (0.0-11.0); NEUTROPHIL # 12.8 10^3/ul (1.6-7.5); NEUTROPHILS % 83.1 % (39.0-77.0); NUCLEATED RED BLOOD CELLS% 0.2 /100WBC (0.0-0.0); POSITIVE DIFF @See below; RED BLOOD COUNT 2.99 10^6/ul (4.70-6.10); RED CELL DISTRIBUTION WIDTH 22.9 % (11.5-14.5)
[2018-03-01 08:19] LABS: WHITE BLOOD COUNT 15.4 10^3/ul (4.8-10.8)
[2018-03-01 08:25] LABS: PLATELET COUNT 231 10^3/UL (140-415)
[2018-03-01 08:50] LABS: ALANINE AMINOTRANSFERASE 31 IU/L (13-69); ALBUMIN 3.1 g/dl (3.3-4.9); ALBUMIN/GLOBULIN RATIO 0.96; ALKALINE PHOSPHATASE 141 IU/L (42-121); ANION GAP 13 (8-16); ASPARTATE AMINO TRANSFERASE 28 IU/L (15-46); BILIRUBIN,INDIRECT 1.2 mg/dl (0-1.1); BILIRUBIN,TOTAL 1.2 mg/dl (0.2-1.3); BLOOD UREA NITROGEN 54 mg/dl (7-20); CALCIUM 8.1 mg/dl (8.4-10.2); CARBON DIOXIDE 23 mmol/L (21-31); CHLORIDE 105 mmol/L (97-110); CREATININE 1.67 mg/dl (0.61-1.24); GLUCOSE 103 mg/dl (70-220); POTASSIUM 4.5 mmol/L (3.5-5.1); SODIUM 136 mmol/L (135-144); TOTAL PROTEIN 6.3 g/dl (6.1-8.1)
[2018-03-01 09:10] LABS: HEMOGLOBIN A1C 4.8 % (0-5.9)
[2018-03-01] MEDS: FAMOTIDINE 20 MG INJ IV ×2 (09:16→21:00)
[2018-03-01] MEDS: ENOXAPARIN 30 MG/0.3 ML SYG SC (09:17)
[2018-03-01] MEDS: CEFEPIME 1GM/50 ML (PMX) 50 ML IVPB ×2 (09:17→20:59)
[2018-03-01] MEDS: LORAZEPAM 2 MG INJ IV ×2 (14:51→22:35)
[2018-03-01] MEDS: ALLOPURINOL 100 MG TAB PO (14:58)
[2018-03-01] MEDS: DOXYCYCLINE 100 MG TAB PO ×2 (17:07→22:35)
[2018-03-01] MEDS: FERROUS SULFATE (EC) 325 MG TAB PO (20:57)
[2018-03-01] MEDS: TAMSULOSIN (SR) 0.4 MG CAP PO (20:57)
[2018-03-01] MEDS: DOCUSATE SODIUM 100 MG CAP PO (20:58)
[2018-03-01] MEDS ORDERED: DOXYCYCLINE 100 MG TAB PO (21:00)
[2018-03-02 05:57] LABS: ADD MAN DIFF? NO
[2018-03-02] MEDS: LORAZEPAM 2 MG INJ IV ×3 (06:00→17:56)
[2018-03-02 06:06] LABS: ABNORMAL IP MESSAGE 1; BASOPHIL # 0.1 10^3/ul (0.0-0.1); BASOPHILS % 0.6 % (0.0-2.0); EOSINOPHILS # 0.2 10^3/ul (0.0-0.5); EOSINOPHILS % 2.2 % (0.0-7.0); HEMOGLOBIN 7.8 g/dl (14.0-18.0); LYMPHOCYTES # 0.6 10^3/ul (0.8-2.9); LYMPHOCYTES % 6.7 % (15.0-51.0); MEAN CORPUSCULAR HEMOGLOBIN 26.9 pg (29.0-33.0); MEAN CORPUSCULAR VOLUME 89.7 fl (82.0-101.0); MEAN PLATELET VOLUME 12.9 fl (7.4-10.4); MONOCYTE # 0.7 10^3/ul (0.3-0.9); MONOCYTES % 8.2 % (0.0-11.0); NEUTROPHIL # 7.3 10^3/ul (1.6-7.5); PLATELET COUNT 192 10^3/UL (140-415); POSITIVE DIFF @See below; RED CELL DISTRIBUTION WIDTH 22.5 % (11.5-14.5)
[2018-03-02] MEDS: LEVOTHYROXINE 100 MCG TAB PO (06:32)
[2018-03-02 06:39] LABS: ANION GAP 8 (8-16); BLOOD UREA NITROGEN 38 mg/dl (7-20); CALCIUM 8.1 mg/dl (8.4-10.2); CARBON DIOXIDE 27 mmol/L (21-31); CHLORIDE 109 mmol/L (97-110); CREATININE 1.33 mg/dl (0.61-1.24); GLUCOSE 90 mg/dl (70-220); POTASSIUM 4.1 mmol/L (3.5-5.1); SODIUM 140 mmol/L (135-144)
[2018-03-02] MEDS: FAMOTIDINE 20 MG INJ IV ×2 (08:31→21:27)
[2018-03-02] MEDS: FERROUS SULFATE (EC) 325 MG TAB PO ×2 (08:32→21:25)
[2018-03-02] MEDS: CEFEPIME 1GM/50 ML (PMX) 50 ML IVPB ×2 (08:32→21:26)
[2018-03-02] MEDS: METOPROLOL (XL) 50 MG TAB PO (08:32)
[2018-03-02] MEDS: FOLIC ACID 1 MG TAB PO (08:32)
[2018-03-02] MEDS: DOXYCYCLINE 100 MG TAB PO ×2 (08:32→21:25)
[2018-03-02] MEDS: ALLOPURINOL 100 MG TAB PO (08:32)
[2018-03-02] MEDS: NIFEdipine (XL) 60 MG TAB PO (08:33)
[2018-03-02] MEDS: ENOXAPARIN 30 MG/0.3 ML SYG SC (08:34)
[2018-03-02] MEDS: FUROSEMIDE 40 MG TAB PO (08:40)
[2018-03-02] MEDS: morphine 2 MG INJ IV (18:03)
[2018-03-02] MEDS: ALBUTEROL/IPRATROPIUM (NEB) 3 ML AMP HHN (18:12)
[2018-03-02] MEDS: TAMSULOSIN (SR) 0.4 MG CAP PO (21:25)
[2018-03-02] MEDS: DOCUSATE SODIUM 100 MG CAP PO (21:25)
[2018-03-03] MEDS: LORAZEPAM 2 MG INJ IV ×4 (00:19→20:40)
[2018-03-03] MEDS: morphine 2 MG INJ IV ×4 (01:50→19:53)
[2018-03-03] MEDS: LEVOTHYROXINE 100 MCG TAB PO (06:28)
[2018-03-03] MEDS: CEFEPIME 1GM/50 ML (PMX) 50 ML IVPB ×2 (09:01→19:54)
[2018-03-03] MEDS: FAMOTIDINE 20 MG INJ IV ×2 (09:02→19:53)
[2018-03-03] MEDS: DOXYCYCLINE 100 MG TAB PO ×2 (09:03→19:52)
[2018-03-03] MEDS: METOPROLOL (XL) 50 MG TAB PO (09:03)
[2018-03-03] MEDS: NIFEdipine (XL) 60 MG TAB PO (09:03)
[2018-03-03] MEDS: ALLOPURINOL 100 MG TAB PO (09:04)
[2018-03-03] MEDS: FERROUS SULFATE (EC) 325 MG TAB PO ×2 (09:04→19:52)
[2018-03-03] MEDS: FOLIC ACID 1 MG TAB PO (09:04)
[2018-03-03] MEDS: FUROSEMIDE 40 MG TAB PO (09:04)
[2018-03-03] MEDS: ENOXAPARIN 30 MG/0.3 ML SYG SC (09:06)
[2018-03-03] MEDS: HYDROCODONE/APAP (10/325) TAB PO ×3 (11:40→23:10)
[2018-03-03] MEDS: TAMSULOSIN (SR) 0.4 MG CAP PO (19:52)
[2018-03-03] MEDS: DOCUSATE SODIUM 100 MG CAP PO (21:00)
[2018-03-04] MEDS: morphine 2 MG INJ IV ×5 (00:44→18:56)
[2018-03-04] MEDS: LORAZEPAM 2 MG INJ IV ×3 (03:02→21:02)
[2018-03-04] MEDS: ALBUTEROL/IPRATROPIUM (NEB) 3 ML AMP HHN (03:54)
[2018-03-04] MEDS: LEVOTHYROXINE 100 MCG TAB PO (06:49)
[2018-03-04] MEDS: HYDROCODONE/APAP (10/325) TAB PO ×2 (06:49→15:46)
[2018-03-04] MEDS: METOPROLOL (XL) 50 MG TAB PO (09:10)
[2018-03-04] MEDS: NIFEdipine (XL) 60 MG TAB PO (09:11)
[2018-03-04] MEDS: ALLOPURINOL 100 MG TAB PO (09:11)
[2018-03-04] MEDS: DOXYCYCLINE 100 MG TAB PO (09:12)
[2018-03-04] MEDS: FERROUS SULFATE (EC) 325 MG TAB PO ×2 (09:12→20:15)
[2018-03-04] MEDS: FUROSEMIDE 40 MG TAB PO (09:13)
[2018-03-04] MEDS: FOLIC ACID 1 MG TAB PO (09:13)
[2018-03-04] MEDS: CEFEPIME 1GM/50 ML (PMX) 50 ML IVPB ×2 (09:15→20:17)
[2018-03-04] MEDS: FAMOTIDINE 20 MG INJ IV ×2 (09:15→20:16)
[2018-03-04] MEDS: ENOXAPARIN 30 MG/0.3 ML SYG SC (09:16)
[2018-03-04] MEDS: DOCUSATE SODIUM 100 MG CAP PO (20:15)
[2018-03-04] MEDS: TAMSULOSIN (SR) 0.4 MG CAP PO (20:15)
[2018-03-04] MEDS: DOXYCYCLINE 100 MG in SOD CHLORIDE 0.9% 250 ML IVPB (21:03)
[2018-03-05] MEDS: morphine LIQ (10 MG/5 ML) CUP PO ×4 (00:13→23:57)
[2018-03-05] MEDS: HYDROCODONE/APAP (10/325) TAB PO ×3 (04:59→18:52)
[2018-03-05 06:17] LABS: ADD MAN DIFF? NO
[2018-03-05 06:23] LABS: ABNORMAL IP MESSAGE 1; BASOPHIL # 0.1 10^3/ul (0.0-0.1); BASOPHILS % 0.8 % (0.0-2.0); EOSINOPHILS # 0.7 10^3/ul (0.0-0.5); EOSINOPHILS % 8.6 % (0.0-7.0); HEMATOCRIT 29.1 % (42.0-52.0); HEMOGLOBIN 8.7 g/dl (14.0-18.0); LYMPHOCYTES # 0.7 10^3/ul (0.8-2.9); LYMPHOCYTES % 9.5 % (15.0-51.0); MEAN CORPUSCULAR HEMOGLOBIN 26.4 pg (29.0-33.0); MEAN CORPUSCULAR HGB CONC 29.9 g/dl (32.0-37.0); MEAN CORPUSCULAR VOLUME 88.2 fl (82.0-101.0); MEAN PLATELET VOLUME 13.3 fl (7.4-10.4); MONOCYTE # 0.9 10^3/ul (0.3-0.9); MONOCYTES % 12.2 % (0.0-11.0); NEUTROPHIL # 5.1 10^3/ul (1.6-7.5); NEUTROPHILS % 67.6 % (39.0-77.0); PLATELET COUNT 179 10^3/UL (140-415); POSITIVE DIFF @See below; RED CELL DISTRIBUTION WIDTH 22.5 % (11.5-14.5)
[2018-03-05 06:23] LABS: WHITE BLOOD COUNT 7.6 10^3/ul (4.8-10.8)
[2018-03-05] MEDS: LEVOTHYROXINE 100 MCG TAB PO (06:38)
[2018-03-05] MEDS: LORAZEPAM 2 MG INJ IV ×3 (06:38→21:14)
[2018-03-05 06:47] LABS: ANION GAP 13 (8-16); BLOOD UREA NITROGEN 26 mg/dl (7-20); CALCIUM 8.5 mg/dl (8.4-10.2); CARBON DIOXIDE 26 mmol/L (21-31); CHLORIDE 104 mmol/L (97-110); CREATININE 1.29 mg/dl (0.61-1.24); GLUCOSE 87 mg/dl (70-220); POTASSIUM 4.1 mmol/L (3.5-5.1); SODIUM 139 mmol/L (135-144)
[2018-03-05] MEDS: FAMOTIDINE 20 MG INJ IV ×2 (09:23→20:59)
[2018-03-05] MEDS: FOLIC ACID 1 MG TAB PO (09:23)
[2018-03-05] MEDS: ALLOPURINOL 100 MG TAB PO (09:23)
[2018-03-05] MEDS: FERROUS SULFATE (EC) 325 MG TAB PO ×2 (09:23→20:59)
[2018-03-05] MEDS: CEFEPIME 1GM/50 ML (PMX) 50 ML IVPB ×2 (09:23→20:59)
[2018-03-05] MEDS: NIFEdipine (XL) 60 MG TAB PO (09:24)
[2018-03-05] MEDS: FUROSEMIDE 40 MG TAB PO (09:24)
[2018-03-05] MEDS: METOPROLOL (XL) 50 MG TAB PO (09:25)
[2018-03-05] MEDS: ENOXAPARIN 30 MG/0.3 ML SYG SC (09:33)
[2018-03-05] MEDS: DOXYCYCLINE 100 MG in SOD CHLORIDE 0.9% 250 ML IVPB ×2 (10:12→21:52)
[2018-03-05] MEDS: ALBUMIN HUMAN 25% 50 ML IV ×2 (13:53→20:10)
[2018-03-05] MEDS: LACTULOSE 30ML CUP PO (14:56)
[2018-03-05] MEDS: FUROSEMIDE 40 MG INJ IV ×2 (15:02→18:10)
[2018-03-05] MEDS: NA PHOSPHATE/BIPHOS 133 ML ENEMA PR (16:57)
[2018-03-05] MEDS: TAMSULOSIN (SR) 0.4 MG CAP PO (20:59)
[2018-03-05] MEDS: DOCUSATE SODIUM 100 MG CAP PO (20:59)
[2018-03-06] MEDS: HYDROCODONE/APAP (10/325) TAB PO ×3 (02:18→21:07)
[2018-03-06] MEDS: ALBUMIN HUMAN 25% 50 ML IV ×2 (05:31→17:26)
[2018-03-06] MEDS: LEVOTHYROXINE 100 MCG TAB PO (06:19)
[2018-03-06] MEDS: FUROSEMIDE 40 MG INJ IV ×2 (06:19→18:13)
[2018-03-06] MEDS: LORAZEPAM 2 MG INJ IV ×2 (06:19→17:26)
[2018-03-06] MEDS: FAMOTIDINE 20 MG INJ IV ×2 (08:36→21:06)
[2018-03-06] MEDS: METOPROLOL (XL) 50 MG TAB PO (08:36)
[2018-03-06] MEDS: NIFEdipine (XL) 60 MG TAB PO (08:36)
[2018-03-06] MEDS: FOLIC ACID 1 MG TAB PO (08:37)
[2018-03-06] MEDS: ALLOPURINOL 100 MG TAB PO (08:37)
[2018-03-06] MEDS: FERROUS SULFATE (EC) 325 MG TAB PO ×2 (08:37→21:05)
[2018-03-06] MEDS: CEFEPIME 1GM/50 ML (PMX) 50 ML IVPB (08:38)
[2018-03-06] MEDS: ENOXAPARIN 30 MG/0.3 ML SYG SC (08:39)
[2018-03-06] MEDS: DOXYCYCLINE 100 MG in SOD CHLORIDE 0.9% 250 ML IVPB (09:51)
[2018-03-06] MEDS: ALBUTEROL/IPRATROPIUM (NEB) 3 ML AMP HHN (10:57)
[2018-03-06] MEDS: morphine LIQ (10 MG/5 ML) CUP PO ×2 (13:37→22:26)
[2018-03-06] MEDS: DOCUSATE SODIUM 100 MG CAP PO (21:05)
[2018-03-06] MEDS: TAMSULOSIN (SR) 0.4 MG CAP PO (21:05)
[2018-03-06] MEDS: ZYVOX 600 MG TAB PO (21:05)
[2018-03-07] MEDS: ALBUMIN HUMAN 25% 50 ML IV ×2 (05:35→17:11)
[2018-03-07 06:09] LABS: PHOSPHORUS 3.4 mg/dl (2.5-4.9)
[2018-03-07 06:10] LABS: ALANINE AMINOTRANSFERASE 28 IU/L (13-69); ALBUMIN 3.1 g/dl (3.3-4.9); ALBUMIN/GLOBULIN RATIO 1.24; ALKALINE PHOSPHATASE 126 IU/L (42-121); ANION GAP 9 (8-16); ASPARTATE AMINO TRANSFERASE 34 IU/L (15-46); BILIRUBIN,INDIRECT 0.4 mg/dl (0-1.1); BILIRUBIN,TOTAL 0.4 mg/dl (0.2-1.3); BLOOD UREA NITROGEN 26 mg/dl (7-20); CALCIUM 8.1 mg/dl (8.4-10.2); CARBON DIOXIDE 29 mmol/L (21-31); CHLORIDE 106 mmol/L (97-110); CREATININE 1.36 mg/dl (0.61-1.24); GLUCOSE 93 mg/dl (70-220); POTASSIUM 3.7 mmol/L (3.5-5.1); SODIUM 140 mmol/L (135-144); TOTAL PROTEIN 5.6 g/dl (6.1-8.1)
[2018-03-07] MEDS: FUROSEMIDE 40 MG INJ IV ×2 (06:11→18:18)
[2018-03-07] MEDS: LEVOTHYROXINE 100 MCG TAB PO (06:11)
[2018-03-07] MEDS: HYDROCODONE/APAP (10/325) TAB PO ×2 (06:16→17:33)
[2018-03-07 06:19] LABS: MAGNESIUM 0.9 mg/dl (1.7-2.5)
[2018-03-07] MEDS: morphine LIQ (10 MG/5 ML) CUP PO ×2 (07:55→16:26)
[2018-03-07] MEDS: MAGNESIUM SULFATE 2 GM/50 ML 50 ML IVPB (07:55)
[2018-03-07] MEDS: FERROUS SULFATE (EC) 325 MG TAB PO ×2 (08:40→20:15)
[2018-03-07] MEDS: NIFEdipine (XL) 60 MG TAB PO (08:40)
[2018-03-07] MEDS: ZYVOX 600 MG TAB PO ×2 (08:40→20:15)
[2018-03-07] MEDS: FOLIC ACID 1 MG TAB PO (08:40)
[2018-03-07] MEDS: METOPROLOL (XL) 50 MG TAB PO (08:40)
[2018-03-07] MEDS: ALLOPURINOL 100 MG TAB PO (08:41)
[2018-03-07] MEDS: FAMOTIDINE 20 MG INJ IV ×2 (08:41→20:20)
[2018-03-07] MEDS: ENOXAPARIN 30 MG/0.3 ML SYG SC (08:43)
[2018-03-07] MEDS: LORAZEPAM 2 MG INJ IV ×2 (11:43→18:35)
[2018-03-07] MEDS: DOCUSATE SODIUM 100 MG CAP PO (20:15)
[2018-03-07] MEDS: TAMSULOSIN (SR) 0.4 MG CAP PO (20:15)
[2018-03-08] MEDS: HYDROCODONE/APAP (10/325) TAB PO ×2 (01:32→09:02)
[2018-03-08] MEDS: morphine LIQ (10 MG/5 ML) CUP PO ×3 (02:29→19:44)
[2018-03-08] MEDS: LORAZEPAM 2 MG INJ IV ×3 (03:24→21:26)
[2018-03-08] MEDS: ALBUMIN HUMAN 25% 50 ML IV (06:34)
[2018-03-08] MEDS: LEVOTHYROXINE 100 MCG TAB PO (06:35)
[2018-03-08] MEDS: FUROSEMIDE 40 MG INJ IV (06:35)
[2018-03-08 06:42] LABS: ANION GAP 11 (8-16); BLOOD UREA NITROGEN 24 mg/dl (7-20); CALCIUM 7.9 mg/dl (8.4-10.2); CARBON DIOXIDE 27 mmol/L (21-31); CHLORIDE 106 mmol/L (97-110); CREATININE 1.32 mg/dl (0.61-1.24); GLUCOSE 88 mg/dl (70-220); POTASSIUM 3.9 mmol/L (3.5-5.1); SODIUM 140 mmol/L (135-144)
[2018-03-08 06:53] LABS: MAGNESIUM 1.2 mg/dl (1.7-2.5)
[2018-03-08] MEDS: FAMOTIDINE 20 MG INJ IV ×2 (09:02→20:24)
[2018-03-08] MEDS: METOPROLOL (XL) 50 MG TAB PO (09:03)
[2018-03-08] MEDS: ALLOPURINOL 100 MG TAB PO (09:03)
[2018-03-08] MEDS: FERROUS SULFATE (EC) 325 MG TAB PO ×2 (09:03→20:24)
[2018-03-08] MEDS: FOLIC ACID 1 MG TAB PO (09:03)
[2018-03-08] MEDS: ZYVOX 600 MG TAB PO ×2 (09:03→20:24)
[2018-03-08] MEDS: NIFEdipine (XL) 60 MG TAB PO (09:03)
[2018-03-08] MEDS: ENOXAPARIN 30 MG/0.3 ML SYG SC (09:08)
[2018-03-08] MEDS: MAGNESIUM SULFATE 2 GM/50 ML 50 ML IVPB (13:50)
[2018-03-08] MEDS: DOCUSATE SODIUM 100 MG CAP PO (20:23)
[2018-03-08] MEDS: TAMSULOSIN (SR) 0.4 MG CAP PO (20:24)
[2018-03-08] MEDS: oxyCODONE (CR) 15 MG TAB [oxyCONTIN] PO (21:50)
[2018-03-09] MEDS: morphine LIQ (10 MG/5 ML) CUP PO ×2 (00:26→09:18)
[2018-03-09 05:49] LABS: ADD MAN DIFF? NO
[2018-03-09 05:50] LABS: WHITE BLOOD COUNT 5.9 10^3/ul (4.8-10.8)
[2018-03-09 05:50] LABS: ABNORMAL IP MESSAGE 1; BASOPHIL # 0.1 10^3/ul (0.0-0.1); BASOPHILS % 0.8 % (0.0-2.0); EOSINOPHILS # 0.4 10^3/ul (0.0-0.5); EOSINOPHILS % 6.3 % (0.0-7.0); HEMATOCRIT 26.1 % (42.0-52.0); HEMOGLOBIN 7.7 g/dl (14.0-18.0); LYMPHOCYTES # 0.7 10^3/ul (0.8-2.9); LYMPHOCYTES % 12.2 % (15.0-51.0); MEAN CORPUSCULAR HGB CONC 29.5 g/dl (32.0-37.0); MEAN CORPUSCULAR VOLUME 88.2 fl (82.0-101.0); MEAN PLATELET VOLUME 13.3 fl (7.4-10.4); MONOCYTE # 1.4 10^3/ul (0.3-0.9); MONOCYTES % 23.2 % (0.0-11.0); NEUTROPHIL # 3.3 10^3/ul (1.6-7.5); NEUTROPHILS % 56.1 % (39.0-77.0); PLATELET COUNT 189 10^3/UL (140-415); POSITIVE DIFF @See below; RED BLOOD COUNT 2.96 10^6/ul (4.70-6.10); RED CELL DISTRIBUTION WIDTH 22.2 % (11.5-14.5)
[2018-03-09 06:12] LABS: ANION GAP 10 (8-16); BLOOD UREA NITROGEN 25 mg/dl (7-20); CARBON DIOXIDE 26 mmol/L (21-31); CHLORIDE 104 mmol/L (97-110); CREATININE 1.51 mg/dl (0.61-1.24); GLUCOSE 81 mg/dl (70-220); POTASSIUM 3.9 mmol/L (3.5-5.1); SODIUM 136 mmol/L (135-144)
[2018-03-09] MEDS: LEVOTHYROXINE 100 MCG TAB PO (06:36)
[2018-03-09] MEDS: LORAZEPAM 2 MG INJ IV (06:36)
[2018-03-09] MEDS: oxyCODONE (CR) 15 MG TAB [oxyCONTIN] PO (09:00)
[2018-03-09] MEDS: ALLOPURINOL 100 MG TAB PO (09:01)
[2018-03-09] MEDS: METOPROLOL (XL) 50 MG TAB PO (09:01)
[2018-03-09] MEDS: ZYVOX 600 MG TAB PO (09:03)
[2018-03-09] MEDS: FOLIC ACID 1 MG TAB PO (09:03)
[2018-03-09] MEDS: NIFEdipine (XL) 60 MG TAB PO (09:03)
[2018-03-09] MEDS: FERROUS SULFATE (EC) 325 MG TAB PO (09:03)
[2018-03-09] MEDS: ENOXAPARIN 30 MG/0.3 ML SYG SC (09:06)
[2018-03-09] MEDS: FAMOTIDINE 20 MG INJ IV (09:06)
[2018-03-09] MEDS: ALBUTEROL/IPRATROPIUM (NEB) 3 ML AMP HHN (09:32)
== END 2018-03-09 11:40 | disposition left against medical advice (07) | DRG 871 ==
LOC: E/R 12:42 → MS2 14:53
PROC: 0W9G3ZZ Drainage of Peritoneal Cavity, Percutaneous Approach (ICD-10-PCS; principal; 2018-02-28)
DX: A41.1 Sepsis due to other specified staphylococcus (principal); J18.9 Pneumonia, unspecified organism; K65.2 Spontaneous bacterial peritonitis; L03.116 Cellulitis of left lower limb; L03.115 Cellulitis of right lower limb; I13.0 Hypertensive heart and chronic kidney disease with heart failure and stage 1 through stage 4 chronic kidney disease, or unspecified chronic kidney disease; N17.9 Acute kidney failure, unspecified; I50.9 Heart failure, unspecified; F41.9 Anxiety disorder, unspecified; F32.9 Major depressive disorder, single episode, unspecified; I25.10 Atherosclerotic heart disease of native coronary artery without angina pectoris; J44.9 Chronic obstructive pulmonary disease, unspecified; K70.31 Alcoholic cirrhosis of liver with ascites; N18.9 Chronic kidney disease, unspecified; Z72.0 Tobacco use; N40.0 Benign prostatic hyperplasia without lower urinary tract symptoms; M10.9 Gout, unspecified
CPT/HCPCS: 36415; 71045; 80048; 80053; 81003; 83036; 83605; 83690; 83735; 84100; 84484; 85025; 87040; 93005; 94640; 94664; 99291-25

== ENCOUNTER → 2018-03-16 | Emergency (ER) | payer BC ==
[2018-03-16] MEDS: IPRATROPIUM (NEB) 0.5 MG/2.5 ML AMP INH (12:59)
[2018-03-16] MEDS: ALBUTEROL 0.5% (NEB) 2.5 MG/0.5 ML AMP INH (12:59)
[2018-03-16 13:35] LABS: ABNORMAL IP MESSAGE 1; HEMATOCRIT 27.2 % (42.0-52.0); HEMOGLOBIN 8.3 g/dl (14.0-18.0); MEAN CORPUSCULAR HEMOGLOBIN 26.7 pg (29.0-33.0); MEAN CORPUSCULAR HGB CONC 30.5 g/dl (32.0-37.0); MEAN CORPUSCULAR VOLUME 87.5 fl (82.0-101.0); MEAN PLATELET VOLUME 11.8 fl (7.4-10.4); NUCLEATED RED BLOOD CELLS% 0.2 /100WBC (0.0-0.0); PLATELET COUNT 376 10^3/UL (140-415); POSITIVE DIFF @See below; RED BLOOD COUNT 3.11 10^6/ul (4.70-6.10); RED CELL DISTRIBUTION WIDTH 21.1 % (11.5-14.5)
[2018-03-16] MEDS: HYDROCODONE/APAP (10/325) TAB PO (13:35)
[2018-03-16] MEDS: METHYLPREDNISOLONE 125 MG INJ IV (13:35)
[2018-03-16] MEDS: MAGNESIUM SULFATE 2 GM/50 ML 50 ML IVPB (13:35)
[2018-03-16 13:37] LABS: ADD MAN DIFF? YES
[2018-03-16 13:43] LABS: BASOPHIL # 0.3 10^3/ul (0.0-0.1); BASOPHILS % 1.7 % (0.0-2.0); LYMPHOCYTES # 2.1 10^3/ul (0.8-2.9); LYMPHOCYTES % 13.1 % (15.0-51.0); MONOCYTES % 12.7 % (0.0-11.0)
[2018-03-16 13:53] LABS: ANION GAP 16 (8-16); BLOOD UREA NITROGEN 16 mg/dl (7-20); CALCIUM 8.1 mg/dl (8.4-10.2); CARBON DIOXIDE 20 mmol/L (21-31); CHLORIDE 104 mmol/L (97-110); CREATININE 1.53 mg/dl (0.61-1.24); GLUCOSE 106 mg/dl (70-220); POTASSIUM 3.6 mmol/L (3.5-5.1); SODIUM 136 mmol/L (135-144)
[2018-03-16 14:39] LABS: ANISOCYTOSIS 2+ (0-0); BAND NEUTROPHILS #M 0.9 10^3/ul (0.0-0.6); BAND NEUTROPHILS % (M) 6 % (0-4); BASOPHIL #M 0.6 10^3/ul (0.0-0.0); BASOPHILS % (M) 4 % (0-2); EOSINOPHILS % (M) 4 % (0-7); ERYTHROBLAST% (NRBC) (M) 1 % (0-0); HYPOCHROMASIA 1+ (0-0); LYMPHOCYTES % (M) 13 % (15-51); MICROCYTOSIS 1+ (0-0); MONOCYTE #M 2.2 10^3/ul (0.3-0.9); MONOCYTES % (M) 14 % (0-11); MYELOCYTES #M 0.1 10^3/ul (0.0-0.0); MYELOCYTES % (M) 1 % (0-0); PLATELET ESTIMATE NORMAL; POIKILOCYTOSIS 1+ (0-0); POLYCHROMASIA 3+ (0-0); REACTIVE LYMPHOCYTES #M 0.3 10^3/ul (0.0-0.0); REACTIVE LYMPHOCYTES% (M) 2 % (0-0); SEG NEUT #M 9.1 10^3/ul (1.6-7.5); SEGMENTED NEUTROPHILS (M) % 56 % (39-77); SMUDGE%M 3 % (0-0)
== END | disposition home or self-care (01) ==
LOC: E/R 12:27
DX: J44.1 Chronic obstructive pulmonary disease with (acute) exacerbation (principal); N28.9 Disorder of kidney and ureter, unspecified; I50.9 Heart failure, unspecified; I10 Essential (primary) hypertension; I25.10 Atherosclerotic heart disease of native coronary artery without angina pectoris; F17.210 Nicotine dependence, cigarettes, uncomplicated; R40.2142 Coma scale, eyes open, spontaneous, at arrival to emergency department; R40.2362 Coma scale, best motor response, obeys commands, at arrival to emergency department; R40.2252 Coma scale, best verbal response, oriented, at arrival to emergency department
CPT/HCPCS: 71045; 80048; 85025; 93005; 94644; 96374; 96375; 99285-25

== ENCOUNTER 2018-03-18 02:25 | Inpatient (IN) | payer BC ==
[2018-03-18 03:04] LABS: WHITE BLOOD COUNT 29.1 10^3/ul (4.8-10.8)
[2018-03-18 03:04] LABS: ABNORMAL IP MESSAGE 1; HEMOGLOBIN 8.6 g/dl (14.0-18.0); MEAN CORPUSCULAR HEMOGLOBIN 26.2 pg (29.0-33.0); MEAN CORPUSCULAR HGB CONC 30.7 g/dl (32.0-37.0); MEAN CORPUSCULAR VOLUME 85.4 fl (82.0-101.0); MEAN PLATELET VOLUME 12.1 fl (7.4-10.4); NUCLEATED RED BLOOD CELLS% 0.3 /100WBC (0.0-0.0); PLATELET COUNT 354 10^3/UL (140-415); POSITIVE DIFF @See below; RED BLOOD COUNT 3.28 10^6/ul (4.70-6.10); RED CELL DISTRIBUTION WIDTH 21.1 % (11.5-14.5)
[2018-03-18 03:23] LABS: INR 1.16; PT RATIO 1.2
[2018-03-18 03:24] LABS: ALANINE AMINOTRANSFERASE 15 IU/L (13-69); ALBUMIN 3.9 g/dl (3.3-4.9); ALBUMIN/GLOBULIN RATIO 1.25; ALKALINE PHOSPHATASE 163 IU/L (42-121); ANION GAP 19 (8-16); ASPARTATE AMINO TRANSFERASE 27 IU/L (15-46); BILIRUBIN,INDIRECT 0.2 mg/dl (0-1.1); BILIRUBIN,TOTAL 0.2 mg/dl (0.2-1.3); BLOOD UREA NITROGEN 24 mg/dl (7-20); CALCIUM 8.5 mg/dl (8.4-10.2); CARBON DIOXIDE 20 mmol/L (21-31); CHLORIDE 102 mmol/L (97-110); CREATININE 2.27 mg/dl (0.61-1.24); GLUCOSE 134 mg/dl (70-220); PARTIAL THROMBOPLASTIN TIME 30.9 Sec (25.0-35.0); POTASSIUM 4.1 mmol/L (3.5-5.1); SODIUM 137 mmol/L (135-144)
[2018-03-18 03:32] LABS: ADD MAN DIFF? YES
[2018-03-18 03:34] LABS: B-TYPE NATRIURETIC PEPTIDE 2730 PG/ML (0-125); TROPONIN-I < 0.010 ng/ml (0.000-0.120)
[2018-03-18] MEDS: SODIUM CHLORIDE 0.9% 1L BAG IV* ×2 (03:41→03:52)
[2018-03-18] MEDS: CEFEPIME 2GM/50 ML (PMX) 50 ML IVPB (04:07)
[2018-03-18] MEDS: VANCOMYCIN 1 GM (PMX) 250 ML IVPB (04:49)
[2018-03-18 05:43] LABS: ANISOCYTOSIS 2+ (0-0); BAND NEUTROPHILS #M 1.1 10^3/ul (0.0-0.6); BAND NEUTROPHILS % (M) 4 % (0-4); GIANT THROMBO% (M) 2 % (0-0); HYPOCHROMASIA 1+ (0-0); LYMPHOCYTES #M 1.7 10^3/ul (0.8-2.9); LYMPHOCYTES % (M) 6 % (15-51); METAMYELOCYTES #M 0.2 10^3/ul (0.0-0.0); METAMYELOCYTES %M 1 % (0-0); MICROCYTOSIS 1+ (0-0); MONOCYTE #M 1.7 10^3/ul (0.3-0.9); MONOCYTES % (M) 6 % (0-11); MYELOCYTES #M 0.2 10^3/ul (0.0-0.0); MYELOCYTES % (M) 1 % (0-0); OVALOCYTES 2+ (0-0); PLATELET ESTIMATE NORMAL; PLATELET MORPHOLOGY COMMENT @See below; POIKILOCYTOSIS 1+ (0-0); POLYCHROMASIA 2+ (0-0); SCHISTOCYTES 1+ (0-0); SEG NEUT #M 23.9 10^3/ul (1.6-7.5); SEGMENTED NEUTROPHILS (M) % 81 % (39-77)
[2018-03-18 06:19] LABS: LACTIC ACID 5.1 mmol/L (0.5-2.0)
[2018-03-18] MEDS ORDERED: ACETAMINOPHEN 500 MG TAB PO (06:30)
[2018-03-18] MEDS ORDERED: VANCOMYCIN IV PER PHARMACY XX (06:30)
[2018-03-18] MEDS: HYDROmorphONE 1 MG/ML SYG IV ×2 (06:50→10:38)
[2018-03-18] MEDS: ONDANSETRON 4 MG INJ IV (06:50)
[2018-03-18] MEDS: SOD CHLORIDE 0.9% 1,000 ML IV (06:51)
[2018-03-18 09:07] LABS: LACTIC ACID 5.1 mmol/L (0.5-2.0)
[2018-03-18 11:21] LABS: LACTIC ACID 5.2 mmol/L (0.5-2.0)
[2018-03-18] MEDS: VANCOMYCIN 1 GM 250 ML IVPB (11:22)
[2018-03-18] MEDS: LORAZEPAM 1 MG TAB PO ×2 (12:22→20:11)
[2018-03-18 12:50] LABS: ADD UMIC YES; UR ASCORBIC ACID NEGATIVE (NEGATIVE); UR BACTERIA FEW /HPF (NONE SEEN); UR BILIRUBIN (Dip) NEGATIVE (NEGATIVE); UR BLOOD (Dip) 1+ mg/dL (NEGATIVE); UR CLARITY CLEAR (CLEAR); UR COLOR YELLOW (YELLOW); UR GLUCOSE (Dip) NEGATIVE (NEGATIVE); UR KETONES (Dip) NEGATIVE (NEGATIVE); UR LEUKOCYTE ESTERASE (Dip) NEGATIVE Leu/ul (NEGATIVE); UR NITRITE (Dip) NEGATIVE (NEGATIVE); UR RBC 1 /HPF (0-5); UR SPECIFIC GRAVITY (Dip) 1.005 (1.003-1.030); UR TOTAL PROTEIN (Dip) NEGATIVE (NEGATIVE); UR UROBILINOGEN (Dip) NEGATIVE (NEGATIVE); UR WBC 1 /HPF (0-5)
[2018-03-18] MEDS ORDERED: ALBUTEROL/IPRATROPIUM (NEB) 3 ML AMP HHN (15:00)
[2018-03-18] MEDS: HYDROmorphONE 2 MG/ML SYG IV ×2 (16:53→20:59)
[2018-03-18] MEDS: ALBUMIN HUMAN 25% 100 ML IV (18:05)
[2018-03-18] MEDS ORDERED: HYDROmorphONE 2 MG/ML SYG IV (18:30)
[2018-03-18] MEDS: FUROSEMIDE 40 MG INJ IV (18:47)
[2018-03-18] MEDS: TAMSULOSIN (SR) 0.4 MG CAP PO (20:11)
[2018-03-19] MEDS: HYDROmorphONE 2 MG/ML SYG IV ×6 (01:18→23:04)
[2018-03-19] MEDS: ALBUMIN HUMAN 25% 100 ML IV ×2 (01:26→10:23)
[2018-03-19] MEDS: PANTOPRAZOLE 40 MG INJ IV (05:03)
[2018-03-19 06:04] LABS: WHITE BLOOD COUNT 24.5 10^3/ul (4.8-10.8)
[2018-03-19 06:04] LABS: ABNORMAL IP MESSAGE 1; HEMATOCRIT 29.1 % (42.0-52.0); HEMOGLOBIN 8.6 g/dl (14.0-18.0); MEAN CORPUSCULAR HEMOGLOBIN 26.3 pg (29.0-33.0); MEAN CORPUSCULAR HGB CONC 29.6 g/dl (32.0-37.0); MEAN PLATELET VOLUME 11.9 fl (7.4-10.4); NUCLEATED RED BLOOD CELLS% 0.3 /100WBC (0.0-0.0); PLATELET COUNT 276 10^3/UL (140-415); POSITIVE DIFF @See below; RED BLOOD COUNT 3.27 10^6/ul (4.70-6.10); RED CELL DISTRIBUTION WIDTH 21.2 % (11.5-14.5)
[2018-03-19 06:05] LABS: ADD MAN DIFF? YES
[2018-03-19] MEDS: LEVOTHYROXINE 100 MCG TAB PO (06:15)
[2018-03-19 07:54] LABS: ALANINE AMINOTRANSFERASE 12 IU/L (13-69); ALBUMIN 4.1 g/dl (3.3-4.9); ALBUMIN/GLOBULIN RATIO 1.36; ALKALINE PHOSPHATASE 140 IU/L (42-121); ANION GAP 17 (8-16); ASPARTATE AMINO TRANSFERASE 28 IU/L (15-46); BILIRUBIN,INDIRECT 0.5 mg/dl (0-1.1); BILIRUBIN,TOTAL 0.5 mg/dl (0.2-1.3); BLOOD UREA NITROGEN 27 mg/dl (7-20); CALCIUM 7.9 mg/dl (8.4-10.2); CARBON DIOXIDE 20 mmol/L (21-31); CHLORIDE 106 mmol/L (97-110); CREATININE 1.62 mg/dl (0.61-1.24); GLUCOSE 114 mg/dl (70-220); POTASSIUM 4.6 mmol/L (3.5-5.1); SODIUM 138 mmol/L (135-144); TOTAL PROTEIN 7.1 g/dl (6.1-8.1)
[2018-03-19 08:23] LABS: ANISOCYTOSIS 2+ (0-0); BAND NEUTROPHILS #M 1.2 10^3/ul (0.0-0.6); BAND NEUTROPHILS % (M) 5 % (0-4); BURR CELLS 3+ (0-0); HYPOCHROMASIA 1+ (0-0); LYMPHOCYTES #M 0.7 10^3/ul (0.8-2.9); LYMPHOCYTES % (M) 3 % (15-51); METAMYELOCYTES #M 0.2 10^3/ul (0.0-0.0); METAMYELOCYTES %M 1 % (0-0); MICROCYTOSIS 1+ (0-0); MONOCYTE #M 2.4 10^3/ul (0.3-0.9); MONOCYTES % (M) 10 % (0-11); MYELOCYTES #M 0.7 10^3/ul (0.0-0.0); MYELOCYTES % (M) 3 % (0-0); PLATELET ESTIMATE NORMAL; POIKILOCYTOSIS 3+ (0-0); POLYCHROMASIA 3+ (0-0); PROMYELOCYTES #M 0.4 10^3/ul (0-0); PROMYELOCYTES % (M) 2 % (0-0); SEG NEUT #M 18.9 10^3/ul (1.6-7.5); SEGMENTED NEUTROPHILS (M) % 76 % (39-77); SMUDGE%M 3 % (0-0); TEAR DROP CELLS 1+ (0-0)
[2018-03-19] MEDS ORDERED: CEFEPIME 1GM/50 ML (PMX) 50 ML IVPB (09:00)
[2018-03-19] MEDS ORDERED: CEFEPIME 2GM/50 ML IVPB (09:00)
[2018-03-19] MEDS: LIDOCAINE 1% (MPF) 5 ML VIAL (10:25)
[2018-03-19] MEDS: LORAZEPAM 1 MG TAB PO ×2 (10:58→20:01)
[2018-03-19] MEDS: CEFEPIME 1GM/50 ML IVPB ×2 (11:02→20:02)
[2018-03-19] MEDS: VANCOMYCIN 1 GM 250 ML IVPB (12:07)
[2018-03-19] MEDS: FLUOCINONIDE 0.05% 15 GM CR TOP (12:10)
[2018-03-19] MEDS: SODIUM HYPOCHLORITE (1/40) 1 APPLIC BTL IRR (14:02)
[2018-03-19] MEDS: CITRIC ACID/SODIUM CITRATE 15 ML CUP PO ×2 (16:25→20:02)
[2018-03-19] MEDS: FUROSEMIDE 20 MG INJ IV (17:14)
[2018-03-19] MEDS: LEVALBUTEROL (NEB) 0.63 MG/3 ML AMP HHN (19:56)
[2018-03-19] MEDS: TAMSULOSIN (SR) 0.4 MG CAP PO (20:01)
[2018-03-19] MEDS ORDERED: VANCOMYCIN 1.25 GM in SOD CHLORIDE 0.9% 250 ML IVPB (23:00)
[2018-03-19] MEDS: NICOTINE (21 MG/24 HR) PATCH TRANSDERM (23:44)
[2018-03-20] MEDS: LEVALBUTEROL (NEB) 0.63 MG/3 ML AMP HHN ×4 (01:18→20:00)
[2018-03-20] MEDS: PANTOPRAZOLE 40 MG INJ IV (05:20)
[2018-03-20] MEDS: FUROSEMIDE 20 MG INJ IV ×2 (05:20→17:41)
[2018-03-20 05:47] LABS: ADD MAN DIFF? NO
[2018-03-20 06:01] LABS: ABNORMAL IP MESSAGE 1; BASOPHILS % 0.2 % (0.0-2.0); HEMATOCRIT 25.4 % (42.0-52.0); HEMOGLOBIN 7.5 g/dl (14.0-18.0); LYMPHOCYTES # 0.5 10^3/ul (0.8-2.9); LYMPHOCYTES % 4.2 % (15.0-51.0); MEAN CORPUSCULAR HEMOGLOBIN 26.1 pg (29.0-33.0); MEAN CORPUSCULAR HGB CONC 29.5 g/dl (32.0-37.0); MEAN CORPUSCULAR VOLUME 88.5 fl (82.0-101.0); MEAN PLATELET VOLUME 12.9 fl (7.4-10.4); MONOCYTES % 16.1 % (0.0-11.0); NEUTROPHIL # 9.4 10^3/ul (1.6-7.5); NEUTROPHILS % 75.7 % (39.0-77.0); NUCLEATED RED BLOOD CELLS # 0.1 10^3/ul (0.0-0.0); NUCLEATED RED BLOOD CELLS% 0.5 /100WBC (0.0-0.0); PLATELET COUNT 197 10^3/UL (140-415); POSITIVE DIFF @See below; RED BLOOD COUNT 2.87 10^6/ul (4.70-6.10); RED CELL DISTRIBUTION WIDTH 21.7 % (11.5-14.5)
[2018-03-20 06:01] LABS: WHITE BLOOD COUNT 12.5 10^3/ul (4.8-10.8)
[2018-03-20 06:20] LABS: BLOOD UREA NITROGEN 32 mg/dl (7-20)
[2018-03-20 06:31] LABS: ANION GAP 12 (8-16); BLOOD UREA NITROGEN 32 mg/dl (7-20); CALCIUM 7.9 mg/dl (8.4-10.2); CARBON DIOXIDE 25 mmol/L (21-31); CHLORIDE 105 mmol/L (97-110); CREATININE 1.75 mg/dl (0.61-1.24); GLUCOSE 90 mg/dl (70-220); POTASSIUM 4.1 mmol/L (3.5-5.1); SODIUM 138 mmol/L (135-144)
[2018-03-20] MEDS: LEVOTHYROXINE 100 MCG TAB PO (06:31)
[2018-03-20] MEDS: CEFEPIME 1GM/50 ML IVPB (09:38)
[2018-03-20] MEDS: CITRIC ACID/SODIUM CITRATE 15 ML CUP PO ×2 (09:38→21:04)
[2018-03-20] MEDS: NICOTINE (21 MG/24 HR) PATCH TRANSDERM (09:38)
[2018-03-20] MEDS: HYDROmorphONE 2 MG/ML SYG IV ×4 (09:38→23:07)
[2018-03-20] MEDS: SODIUM HYPOCHLORITE (1/40) 1 APPLIC BTL IRR (09:39)
[2018-03-20] MEDS: FLUOCINONIDE 0.05% 15 GM CR TOP (09:39)
[2018-03-20] MEDS: VANCOMYCIN 1 GM 250 ML IVPB (11:53)
[2018-03-20] MEDS: LORAZEPAM 1 MG TAB PO (16:29)
[2018-03-20] MEDS ORDERED: MEROPENEM 500MG/50 ML (PMX) 50 ML IVPB (21:00)
[2018-03-20] MEDS: TAMSULOSIN (SR) 0.4 MG CAP PO (21:04)
[2018-03-20] MEDS: MEROPENEM 1 GM/50ML(PMX) 50 ML IVPB (21:05)
[2018-03-20 21:17] LABS: IMMEDIATE SPIN CROSSMATCH 1 1
[2018-03-20] MEDS: BISACODYL 10 MG SUPP PR (21:45)
[2018-03-21] MEDS: LORAZEPAM 2 MG INJ IV ×2 (00:34→13:13)
[2018-03-21] MEDS: LEVALBUTEROL (NEB) 0.63 MG/3 ML AMP HHN ×4 (02:35→20:25)
[2018-03-21] MEDS: FUROSEMIDE 20 MG INJ IV (06:05)
[2018-03-21] MEDS: PANTOPRAZOLE 40 MG INJ IV (06:06)
[2018-03-21] MEDS: HYDROmorphONE 2 MG/ML SYG IV ×4 (06:11→21:06)
[2018-03-21] MEDS: LEVOTHYROXINE 100 MCG TAB PO (06:11)
[2018-03-21 06:19] LABS: ADD MAN DIFF? NO
[2018-03-21 06:25] LABS: ABNORMAL IP MESSAGE 1; BASOPHIL # 0.1 10^3/ul (0.0-0.1); BASOPHILS % 0.5 % (0.0-2.0); EOSINOPHILS # 0.1 10^3/ul (0.0-0.5); EOSINOPHILS % 0.6 % (0.0-7.0); HEMATOCRIT 26.3 % (42.0-52.0); HEMOGLOBIN 7.9 g/dl (14.0-18.0); LYMPHOCYTES # 0.7 10^3/ul (0.8-2.9); LYMPHOCYTES % 5.8 % (15.0-51.0); MEAN CORPUSCULAR HEMOGLOBIN 26.2 pg (29.0-33.0); MEAN CORPUSCULAR VOLUME 87.4 fl (82.0-101.0); MEAN PLATELET VOLUME 11.8 fl (7.4-10.4); MONOCYTE # 1.8 10^3/ul (0.3-0.9); MONOCYTES % 14.1 % (0.0-11.0); NEUTROPHIL # 9.4 10^3/ul (1.6-7.5); NEUTROPHILS % 73.9 % (39.0-77.0); NUCLEATED RED BLOOD CELLS # 0.1 10^3/ul (0.0-0.0); NUCLEATED RED BLOOD CELLS% 0.4 /100WBC (0.0-0.0); PLATELET COUNT 207 10^3/UL (140-415); POSITIVE DIFF @See below; RED BLOOD COUNT 3.01 10^6/ul (4.70-6.10); RED CELL DISTRIBUTION WIDTH 21.3 % (11.5-14.5)
[2018-03-21 06:25] LABS: WHITE BLOOD COUNT 12.7 10^3/ul (4.8-10.8)
[2018-03-21 06:50] LABS: ANION GAP 10 (8-16); BLOOD UREA NITROGEN 29 mg/dl (7-20); CALCIUM 8.1 mg/dl (8.4-10.2); CARBON DIOXIDE 27 mmol/L (21-31); CHLORIDE 107 mmol/L (97-110); CREATININE 1.55 mg/dl (0.61-1.24); GLUCOSE 99 mg/dl (70-220); POTASSIUM 4.1 mmol/L (3.5-5.1); SODIUM 140 mmol/L (135-144)
[2018-03-21] MEDS: CITRIC ACID/SODIUM CITRATE 15 ML CUP PO ×2 (09:23→21:01)
[2018-03-21] MEDS: POLYETHYLENE GLYCOL 17 GM PACKET PO (09:24)
[2018-03-21] MEDS: LUBIPROSTONE 24 MCG CAP PO ×2 (09:26→21:02)
[2018-03-21] MEDS: SODIUM HYPOCHLORITE (1/40) 1 APPLIC BTL IRR (09:30)
[2018-03-21] MEDS: NICOTINE (21 MG/24 HR) PATCH TRANSDERM (09:32)
[2018-03-21] MEDS: MEROPENEM 1 GM/50ML(PMX) 50 ML IVPB ×2 (09:46→21:05)
[2018-03-21] MEDS: FLUOCINONIDE 0.05% 15 GM CR TOP (10:42)
[2018-03-21] MEDS ORDERED: VANCOMYCIN IV PER PHARMACY XX (11:30)
[2018-03-21] MEDS: [UNRECOGNIZED DRUG - REMARK] XX (12:30)
[2018-03-21 13:07] LABS: VANCOMYCIN,RANDOM 14.8 ug/ml
[2018-03-21] MEDS: VANCOMYCIN 1 GM 250 ML IVPB (14:29)
[2018-03-21] MEDS: BUMETANIDE 12 MG in DEXTROSE 5% 72 ML IV (17:06)
[2018-03-21] MEDS: TAMSULOSIN (SR) 0.4 MG CAP PO (21:02)
[2018-03-22] MEDS: LORAZEPAM 2 MG INJ IV ×2 (00:11→20:46)
[2018-03-22] MEDS: LEVALBUTEROL (NEB) 0.63 MG/3 ML AMP HHN ×4 (01:12→20:00)
[2018-03-22] MEDS: HYDROmorphONE 2 MG/ML SYG IV ×3 (03:55→20:07)
[2018-03-22 05:58] LABS: ABNORMAL IP MESSAGE 1; HEMATOCRIT 29.3 % (42.0-52.0); HEMOGLOBIN 8.7 g/dl (14.0-18.0); MEAN CORPUSCULAR HGB CONC 29.7 g/dl (32.0-37.0); MEAN CORPUSCULAR VOLUME 87.7 fl (82.0-101.0); MEAN PLATELET VOLUME 11.2 fl (7.4-10.4); NUCLEATED RED BLOOD CELLS% 0.2 /100WBC (0.0-0.0); PLATELET COUNT 236 10^3/UL (140-415); POSITIVE DIFF @See below; RED BLOOD COUNT 3.34 10^6/ul (4.70-6.10); RED CELL DISTRIBUTION WIDTH 21.6 % (11.5-14.5)
[2018-03-22 05:58] LABS: WHITE BLOOD COUNT 15.7 10^3/ul (4.8-10.8)
[2018-03-22] MEDS: PANTOPRAZOLE 40 MG INJ IV (06:06)
[2018-03-22] MEDS: LEVOTHYROXINE 100 MCG TAB PO (06:07)
[2018-03-22 06:08] LABS: ADD MAN DIFF? YES
[2018-03-22 06:55] LABS: ANION GAP 14 (8-16); BLOOD UREA NITROGEN 26 mg/dl (7-20); CALCIUM 8.3 mg/dl (8.4-10.2); CARBON DIOXIDE 26 mmol/L (21-31); CHLORIDE 105 mmol/L (97-110); CREATININE 1.43 mg/dl (0.61-1.24); GLUCOSE 103 mg/dl (70-220); SODIUM 141 mmol/L (135-144)
[2018-03-22] MEDS: POLYETHYLENE GLYCOL 17 GM PACKET PO (09:00)
[2018-03-22] MEDS: LUBIPROSTONE 24 MCG CAP PO ×2 (09:14→20:46)
[2018-03-22] MEDS: MEROPENEM 1 GM/50ML(PMX) 50 ML IVPB ×2 (09:17→20:46)
[2018-03-22] MEDS: CITRIC ACID/SODIUM CITRATE 15 ML CUP PO ×2 (09:17→20:45)
[2018-03-22] MEDS: SODIUM HYPOCHLORITE (1/40) 1 APPLIC BTL IRR (09:17)
[2018-03-22] MEDS: FLUOCINONIDE 0.05% 15 GM CR TOP (09:17)
[2018-03-22] MEDS: NICOTINE (21 MG/24 HR) PATCH TRANSDERM (09:22)
[2018-03-22 09:35] LABS: ANISOCYTOSIS 2+ (0-0); BAND NEUTROPHILS #M 0.4 10^3/ul (0.0-0.6); BAND NEUTROPHILS % (M) 3 % (0-4); BASOPHIL #M 0.1 10^3/ul (0.0-0.0); BASOPHILS % (M) 1 % (0-2); EOSINOPHILS % (M) 4 % (0-7); HYPOCHROMASIA 1+ (0-0); LYMPHOCYTES #M 0.9 10^3/ul (0.8-2.9); LYMPHOCYTES % (M) 6 % (15-51); MICROCYTOSIS 1+ (0-0); MONOCYTE #M 0.9 10^3/ul (0.3-0.9); MONOCYTES % (M) 6 % (0-11); MYELOCYTES #M 0.3 10^3/ul (0.0-0.0); MYELOCYTES % (M) 2 % (0-0); PLATELET ESTIMATE NORMAL; POIKILOCYTOSIS 1+ (0-0); POLYCHROMASIA 3+ (0-0); PROMYELOCYTES #M 0.1 10^3/ul (0-0); PROMYELOCYTES % (M) 1 % (0-0); SEG NEUT #M 12.2 10^3/ul (1.6-7.5); SEGMENTED NEUTROPHILS (M) % 77 % (39-77); SMUDGE%M 15 % (0-0)
[2018-03-22] MEDS: BUMETANIDE 1 MG INJ IV ×2 (12:55→19:43)
[2018-03-22] MEDS: LORAZEPAM 1 MG TAB PO (17:43)
[2018-03-22] MEDS: VANCOMYCIN 1 GM 250 ML IVPB (19:44)
[2018-03-22] MEDS: TAMSULOSIN (SR) 0.4 MG CAP PO (20:46)
[2018-03-23] MEDS: HYDROmorphONE 2 MG/ML SYG IV ×5 (00:25→21:34)
[2018-03-23] MEDS: LEVALBUTEROL (NEB) 0.63 MG/3 ML AMP HHN ×4 (02:18→20:00)
[2018-03-23] MEDS: PANTOPRAZOLE 40 MG INJ IV (05:42)
[2018-03-23] MEDS: BUMETANIDE 1 MG INJ IV ×2 (05:42→18:55)
[2018-03-23] MEDS: LEVOTHYROXINE 100 MCG TAB PO (06:18)
[2018-03-23 06:38] LABS: ADD MAN DIFF? NO
[2018-03-23 06:48] LABS: WHITE BLOOD COUNT 14.6 10^3/ul (4.8-10.8)
[2018-03-23 06:48] LABS: ABNORMAL IP MESSAGE 1; BASOPHIL # 0.1 10^3/ul (0.0-0.1); BASOPHILS % 0.9 % (0.0-2.0); EOSINOPHILS # 0.4 10^3/ul (0.0-0.5); HEMATOCRIT 29.9 % (42.0-52.0); HEMOGLOBIN 9.1 g/dl (14.0-18.0); IMMATURE GRANS #M 0.99 10^3/ul; IMMATURE GRANS % (M) 6.8 %; LYMPHOCYTES # 0.9 10^3/ul (0.8-2.9); LYMPHOCYTES % 6.1 % (15.0-51.0); MEAN CORPUSCULAR HEMOGLOBIN 27.2 pg (29.0-33.0); MEAN CORPUSCULAR HGB CONC 30.4 g/dl (32.0-37.0); MEAN CORPUSCULAR VOLUME 89.3 fl (82.0-101.0); MEAN PLATELET VOLUME 11.6 fl (7.4-10.4); MONOCYTE # 1.9 10^3/ul (0.3-0.9); MONOCYTES % 12.9 % (0.0-11.0); NEUTROPHIL # 10.3 10^3/ul (1.6-7.5); NEUTROPHILS % 70.3 % (39.0-77.0); PLATELET COUNT 270 10^3/UL (140-415); POSITIVE DIFF @See below; RED BLOOD COUNT 3.35 10^6/ul (4.70-6.10); RED CELL DISTRIBUTION WIDTH 22.2 % (11.5-14.5)
[2018-03-23 07:05] LABS: ANION GAP 11 (8-16); BLOOD UREA NITROGEN 23 mg/dl (7-20); CALCIUM 8.4 mg/dl (8.4-10.2); CARBON DIOXIDE 30 mmol/L (21-31); CHLORIDE 102 mmol/L (97-110); CREATININE 1.44 mg/dl (0.61-1.24); GLUCOSE 98 mg/dl (70-220); POTASSIUM 3.8 mmol/L (3.5-5.1); SODIUM 139 mmol/L (135-144)
[2018-03-23 07:47] LABS: ANISOCYTOSIS 1+ (0-0); BAND NEUTROPHILS #M 0.1 10^3/ul (0.0-0.6); BAND NEUTROPHILS % (M) 1 % (0-4); EOSINOPHILS % (M) 2 % (0-7); LYMPHOCYTES #M 1.7 10^3/ul (0.8-2.9); LYMPHOCYTES % (M) 12 % (15-51); METAMYELOCYTES #M 0.1 10^3/ul (0.0-0.0); METAMYELOCYTES %M 1 % (0-0); MICROCYTOSIS 1+ (0-0); MONOCYTES % (M) 14 % (0-11); MYELOCYTES #M 0.4 10^3/ul (0.0-0.0); MYELOCYTES % (M) 3 % (0-0); PLATELET ESTIMATE NORMAL; POLYCHROMASIA 2+ (0-0); SEG NEUT #M 9.9 10^3/ul (1.6-7.5); SEGMENTED NEUTROPHILS (M) % 68 % (39-77); SMUDGE%M 38 % (0-0)
[2018-03-23] MEDS: SODIUM HYPOCHLORITE (1/40) 1 APPLIC BTL IRR ×2 (08:56)
[2018-03-23] MEDS: FLUOCINONIDE 0.05% 15 GM CR TOP (10:00)
[2018-03-23] MEDS: MEROPENEM 1 GM/50ML(PMX) 50 ML IVPB ×2 (10:07→21:42)
[2018-03-23] MEDS: LUBIPROSTONE 24 MCG CAP PO ×2 (10:09→21:43)
[2018-03-23] MEDS: NICOTINE (21 MG/24 HR) PATCH TRANSDERM (10:09)
[2018-03-23] MEDS: POLYETHYLENE GLYCOL 17 GM PACKET PO (10:09)
[2018-03-23] MEDS: CITRIC ACID/SODIUM CITRATE 15 ML CUP PO ×2 (10:09→21:43)
[2018-03-23] MEDS: LORAZEPAM 2 MG INJ IV (18:55)
[2018-03-23] MEDS: TAMSULOSIN (SR) 0.4 MG CAP PO (21:43)
[2018-03-23] MEDS: VANCOMYCIN 1 GM 250 ML IVPB (21:43)
[2018-03-24] MEDS: LORAZEPAM 1 MG TAB PO (00:18)
[2018-03-24] MEDS: LEVALBUTEROL (NEB) 0.63 MG/3 ML AMP HHN ×4 (02:00→21:22)
[2018-03-24] MEDS: PANTOPRAZOLE 40 MG INJ IV (06:22)
[2018-03-24] MEDS: BUMETANIDE 1 MG INJ IV ×2 (06:22→17:22)
[2018-03-24] MEDS: LEVOTHYROXINE 100 MCG TAB PO (06:22)
[2018-03-24 06:26] LABS: ADD MAN DIFF? NO
[2018-03-24] MEDS: HYDROmorphONE 2 MG/ML SYG IV ×4 (06:33→21:36)
[2018-03-24 06:38] LABS: ABNORMAL IP MESSAGE 1; BASOPHIL # 0.1 10^3/ul (0.0-0.1); BASOPHILS % 0.6 % (0.0-2.0); EOSINOPHILS # 0.3 10^3/ul (0.0-0.5); EOSINOPHILS % 2.8 % (0.0-7.0); HEMATOCRIT 27.2 % (42.0-52.0); HEMOGLOBIN 8.2 g/dl (14.0-18.0); IMMATURE GRANS #M 0.67 10^3/ul; IMMATURE GRANS % (M) 5.8 %; LYMPHOCYTES # 0.7 10^3/ul (0.8-2.9); MEAN CORPUSCULAR HEMOGLOBIN 26.3 pg (29.0-33.0); MEAN CORPUSCULAR HGB CONC 30.1 g/dl (32.0-37.0); MEAN CORPUSCULAR VOLUME 87.2 fl (82.0-101.0); MEAN PLATELET VOLUME 11.2 fl (7.4-10.4); MONOCYTE # 2.3 10^3/ul (0.3-0.9); MONOCYTES % 19.9 % (0.0-11.0); NEUTROPHIL # 7.5 10^3/ul (1.6-7.5); NEUTROPHILS % 64.9 % (39.0-77.0); PLATELET COUNT 233 10^3/UL (140-415); POSITIVE DIFF @See below; RED BLOOD COUNT 3.12 10^6/ul (4.70-6.10); RED CELL DISTRIBUTION WIDTH 22.2 % (11.5-14.5)
[2018-03-24 06:38] LABS: WHITE BLOOD COUNT 11.6 10^3/ul (4.8-10.8)
[2018-03-24 06:59] LABS: ANION GAP 10 (8-16); BLOOD UREA NITROGEN 24 mg/dl (7-20); CALCIUM 7.8 mg/dl (8.4-10.2); CARBON DIOXIDE 31 mmol/L (21-31); CHLORIDE 103 mmol/L (97-110); CREATININE 1.46 mg/dl (0.61-1.24); GLUCOSE 94 mg/dl (70-220); SODIUM 140 mmol/L (135-144)
[2018-03-24] MEDS: CITRIC ACID/SODIUM CITRATE 15 ML CUP PO ×2 (08:32→20:50)
[2018-03-24] MEDS: LUBIPROSTONE 24 MCG CAP PO ×2 (08:32→20:50)
[2018-03-24] MEDS: MEROPENEM 1 GM/50ML(PMX) 50 ML IVPB ×2 (08:33→20:50)
[2018-03-24] MEDS: NICOTINE (21 MG/24 HR) PATCH TRANSDERM (08:33)
[2018-03-24] MEDS: FLUOCINONIDE 0.05% 15 GM CR TOP (08:34)
[2018-03-24] MEDS: POLYETHYLENE GLYCOL 17 GM PACKET PO (08:36)
[2018-03-24] MEDS: SODIUM HYPOCHLORITE (1/40) 1 APPLIC BTL IRR (17:23)
[2018-03-24] MEDS: LORAZEPAM 2 MG INJ IV (18:48)
[2018-03-24] MEDS: VANCOMYCIN 1 GM 250 ML IVPB (20:50)
[2018-03-24] MEDS: TAMSULOSIN (SR) 0.4 MG CAP PO (20:50)
[2018-03-25] MEDS: HYDROmorphONE 2 MG/ML SYG IV ×5 (01:40→18:58)
[2018-03-25] MEDS: LEVALBUTEROL (NEB) 0.63 MG/3 ML AMP HHN ×4 (02:59→21:10)
[2018-03-25] MEDS: LORAZEPAM 2 MG INJ IV ×3 (03:35→20:55)
[2018-03-25] MEDS: BUMETANIDE 1 MG INJ IV ×2 (05:44→18:57)
[2018-03-25] MEDS: PANTOPRAZOLE 40 MG INJ IV (05:44)
[2018-03-25] MEDS: LEVOTHYROXINE 100 MCG TAB PO (05:44)
[2018-03-25 05:51] LABS: ADD MAN DIFF? NO
[2018-03-25 06:03] LABS: WHITE BLOOD COUNT 11.2 10^3/ul (4.8-10.8)
[2018-03-25 06:03] LABS: ABNORMAL IP MESSAGE 1; BASOPHIL # 0.1 10^3/ul (0.0-0.1); BASOPHILS % 0.9 % (0.0-2.0); EOSINOPHILS # 0.2 10^3/ul (0.0-0.5); EOSINOPHILS % 2.1 % (0.0-7.0); HEMATOCRIT 27.8 % (42.0-52.0); HEMOGLOBIN 8.3 g/dl (14.0-18.0); IMMATURE GRANS #M 0.87 10^3/ul; IMMATURE GRANS % (M) 7.7 %; LYMPHOCYTES # 0.8 10^3/ul (0.8-2.9); LYMPHOCYTES % 7.1 % (15.0-51.0); MEAN CORPUSCULAR HEMOGLOBIN 26.4 pg (29.0-33.0); MEAN CORPUSCULAR HGB CONC 29.9 g/dl (32.0-37.0); MEAN CORPUSCULAR VOLUME 88.5 fl (82.0-101.0); MEAN PLATELET VOLUME 12.9 fl (7.4-10.4); MONOCYTE # 2.4 10^3/ul (0.3-0.9); MONOCYTES % 21.6 % (0.0-11.0); NEUTROPHIL # 6.8 10^3/ul (1.6-7.5); NEUTROPHILS % 60.6 % (39.0-77.0); PLATELET COUNT 260 10^3/UL (140-415); POSITIVE DIFF @See below; RED BLOOD COUNT 3.14 10^6/ul (4.70-6.10); RED CELL DISTRIBUTION WIDTH 22.2 % (11.5-14.5)
[2018-03-25 06:32] LABS: ANION GAP 11 (8-16); BLOOD UREA NITROGEN 26 mg/dl (7-20); CALCIUM 7.8 mg/dl (8.4-10.2); CARBON DIOXIDE 31 mmol/L (21-31); CHLORIDE 100 mmol/L (97-110); CREATININE 1.41 mg/dl (0.61-1.24); GLUCOSE 85 mg/dl (70-220); POTASSIUM 3.8 mmol/L (3.5-5.1); SODIUM 138 mmol/L (135-144)
[2018-03-25] MEDS: NICOTINE (21 MG/24 HR) PATCH TRANSDERM (08:58)
[2018-03-25] MEDS: CITRIC ACID/SODIUM CITRATE 15 ML CUP PO ×2 (08:58→20:34)
[2018-03-25] MEDS: LUBIPROSTONE 24 MCG CAP PO ×2 (08:59→22:43)
[2018-03-25] MEDS: POLYETHYLENE GLYCOL 17 GM PACKET PO (08:59)
[2018-03-25] MEDS: SODIUM HYPOCHLORITE (1/40) 1 APPLIC BTL IRR (08:59)
[2018-03-25] MEDS: FLUOCINONIDE 0.05% 15 GM CR TOP ×2 (09:00→18:24)
[2018-03-25] MEDS: MEROPENEM 1 GM/50ML(PMX) 50 ML IVPB ×2 (09:11→20:33)
[2018-03-25 19:25] LABS: TROPONIN-I 0.048 ng/ml (0.000-0.120)
[2018-03-25] MEDS: VANCOMYCIN 1 GM 250 ML IVPB (20:32)
[2018-03-25] MEDS: TAMSULOSIN (SR) 0.4 MG CAP PO (20:34)
[2018-03-25] MEDS: PROPRANOLOL 20 MG TAB PO (20:34)
[2018-03-26] MEDS: HYDROmorphONE 2 MG/ML SYG IV ×6 (00:36→22:15)
[2018-03-26 01:40] LABS: TROPONIN-I 0.043 ng/ml (0.000-0.120)
[2018-03-26] MEDS: LEVALBUTEROL (NEB) 0.63 MG/3 ML AMP HHN ×4 (02:00→19:54)
[2018-03-26] MEDS: LORAZEPAM 2 MG INJ IV ×3 (02:42→19:47)
[2018-03-26] MEDS: PANTOPRAZOLE 40 MG INJ IV (05:13)
[2018-03-26 06:08] LABS: ABNORMAL IP MESSAGE 1; HEMATOCRIT 28.4 % (42.0-52.0); HEMOGLOBIN 8.6 g/dl (14.0-18.0); IMMATURE GRANS #M 0.73 10^3/ul; IMMATURE GRANS % (M) 6.2 %; MEAN CORPUSCULAR HEMOGLOBIN 26.7 pg (29.0-33.0); MEAN CORPUSCULAR HGB CONC 30.3 g/dl (32.0-37.0); MEAN CORPUSCULAR VOLUME 88.2 fl (82.0-101.0); MEAN PLATELET VOLUME 12.8 fl (7.4-10.4); PLATELET COUNT 293 10^3/UL (140-415); POSITIVE DIFF @See below; RED BLOOD COUNT 3.22 10^6/ul (4.70-6.10); RED CELL DISTRIBUTION WIDTH 21.7 % (11.5-14.5)
[2018-03-26 06:08] LABS: WHITE BLOOD COUNT 11.7 10^3/ul (4.8-10.8)
[2018-03-26] MEDS: LEVOTHYROXINE 100 MCG TAB PO (06:22)
[2018-03-26 06:31] LABS: ADD MAN DIFF? YES
[2018-03-26 06:46] LABS: ANION GAP 13 (8-16); BLOOD UREA NITROGEN 31 mg/dl (7-20); CALCIUM 7.5 mg/dl (8.4-10.2); CARBON DIOXIDE 30 mmol/L (21-31); CHLORIDE 100 mmol/L (97-110); GLUCOSE 82 mg/dl (70-220); POTASSIUM 4.4 mmol/L (3.5-5.1); SODIUM 139 mmol/L (135-144)
[2018-03-26 06:58] LABS: TROPONIN-I 0.047 ng/ml (0.000-0.120)
[2018-03-26] MEDS: BUMETANIDE 1 MG INJ IV ×2 (08:57→19:44)
[2018-03-26] MEDS: CITRIC ACID/SODIUM CITRATE 15 ML CUP PO ×2 (08:58→21:40)
[2018-03-26] MEDS: POLYETHYLENE GLYCOL 17 GM PACKET PO (08:58)
[2018-03-26] MEDS: LUBIPROSTONE 24 MCG CAP PO ×2 (08:59→21:40)
[2018-03-26] MEDS: PROPRANOLOL 20 MG TAB PO ×2 (08:59→21:41)
[2018-03-26] MEDS: NICOTINE (21 MG/24 HR) PATCH TRANSDERM (09:02)
[2018-03-26] MEDS: FLUOCINONIDE 0.05% 15 GM CR TOP (09:02)
[2018-03-26 09:07] LABS: BAND NEUTROPHILS #M 0.3 10^3/ul (0.0-0.6); BAND NEUTROPHILS % (M) 3 % (0-4); EOSINOPHILS % (M) 7 % (0-7); LYMPHOCYTES #M 0.4 10^3/ul (0.8-2.9); LYMPHOCYTES % (M) 4 % (15-51); METAMYELOCYTES #M 0.1 10^3/ul (0.0-0.0); METAMYELOCYTES %M 1 % (0-0); MONOCYTE #M 1.2 10^3/ul (0.3-0.9); MONOCYTES % (M) 11 % (0-11); MYELOCYTES #M 0.4 10^3/ul (0.0-0.0); MYELOCYTES % (M) 4 % (0-0); PLATELET ESTIMATE NORMAL; PROMYELOCYTES #M 0.1 10^3/ul (0-0); PROMYELOCYTES % (M) 1 % (0-0); REACTIVE LYMPHOCYTES #M 0.1 10^3/ul (0.0-0.0); REACTIVE LYMPHOCYTES% (M) 1 % (0-0); SEGMENTED NEUTROPHILS (M) % 68 % (39-77); SMUDGE%M 9 % (0-0)
[2018-03-26] MEDS: MEROPENEM 1 GM/50ML(PMX) 50 ML IVPB ×2 (09:07→21:40)
[2018-03-26 09:08] LABS: ANISOCYTOSIS 1+ (0-0); MICROCYTOSIS 1+ (0-0); POLYCHROMASIA 2+ (0-0)
[2018-03-26] MEDS: SODIUM HYPOCHLORITE (1/40) 1 APPLIC BTL IRR (09:13)
[2018-03-26] MEDS: VANCOMYCIN 1 GM 250 ML IVPB (20:17)
[2018-03-26] MEDS: TAMSULOSIN (SR) 0.4 MG CAP PO (21:40)
[2018-03-27] MEDS: LEVALBUTEROL (NEB) 0.63 MG/3 ML AMP HHN ×4 (01:17→21:00)
[2018-03-27] MEDS: HYDROmorphONE 2 MG/ML SYG IV ×5 (02:12→22:43)
[2018-03-27] MEDS: LORAZEPAM 2 MG INJ IV ×2 (05:40→17:07)
[2018-03-27] MEDS: BUMETANIDE 1 MG INJ IV ×2 (05:40→18:11)
[2018-03-27] MEDS: PANTOPRAZOLE 40 MG INJ IV (05:40)
[2018-03-27] MEDS: LEVOTHYROXINE 100 MCG TAB PO (05:41)
[2018-03-27] MEDS: SODIUM HYPOCHLORITE (1/40) 1 APPLIC BTL IRR (08:58)
[2018-03-27] MEDS: MEROPENEM 1 GM/50ML(PMX) 50 ML IVPB ×2 (08:59→22:42)
[2018-03-27] MEDS: CITRIC ACID/SODIUM CITRATE 15 ML CUP PO ×2 (08:59→20:35)
[2018-03-27] MEDS: LUBIPROSTONE 24 MCG CAP PO ×2 (08:59→20:34)
[2018-03-27] MEDS: PROPRANOLOL 20 MG TAB PO ×2 (08:59→20:35)
[2018-03-27] MEDS: NICOTINE (21 MG/24 HR) PATCH TRANSDERM (09:00)
[2018-03-27] MEDS: POLYETHYLENE GLYCOL 17 GM PACKET PO (09:00)
[2018-03-27] MEDS: FLUOCINONIDE 0.05% 15 GM CR TOP (12:30)
[2018-03-27 14:30] LABS: ADD MAN DIFF? NO
[2018-03-27 14:32] LABS: WHITE BLOOD COUNT 10.8 10^3/ul (4.8-10.8)
[2018-03-27 14:32] LABS: ABNORMAL IP MESSAGE 1; HEMATOCRIT 28.3 % (42.0-52.0); HEMOGLOBIN 8.6 g/dl (14.0-18.0); MEAN CORPUSCULAR HEMOGLOBIN 26.7 pg (29.0-33.0); MEAN CORPUSCULAR HGB CONC 30.4 g/dl (32.0-37.0); MEAN CORPUSCULAR VOLUME 87.9 fl (82.0-101.0); MEAN PLATELET VOLUME 12.2 fl (7.4-10.4); POSITIVE DIFF @See below; RED BLOOD COUNT 3.22 10^6/ul (4.70-6.10); RED CELL DISTRIBUTION WIDTH 22.2 % (11.5-14.5)
[2018-03-27 14:33] LABS: PLATELET COUNT 213 10^3/UL (140-415)
[2018-03-27 15:03] LABS: ANION GAP 10 (8-16); BLOOD UREA NITROGEN 34 mg/dl (7-20); CALCIUM 7.3 mg/dl (8.4-10.2); CARBON DIOXIDE 31 mmol/L (21-31); CHLORIDE 100 mmol/L (97-110); CREATININE 1.53 mg/dl (0.61-1.24); GLUCOSE 89 mg/dl (70-220); POTASSIUM 4.3 mmol/L (3.5-5.1); SODIUM 137 mmol/L (135-144)
[2018-03-27] MEDS: TAMSULOSIN (SR) 0.4 MG CAP PO (20:34)
[2018-03-27] MEDS: VANCOMYCIN 1 GM 250 ML IVPB (20:35)
[2018-03-28] MEDS: LEVALBUTEROL (NEB) 0.63 MG/3 ML AMP HHN ×4 (02:00→20:53)
[2018-03-28] MEDS: HYDROmorphONE 2 MG/ML SYG IV ×5 (02:44→21:42)
[2018-03-28] MEDS: LORAZEPAM 2 MG INJ IV ×3 (03:47→23:20)
[2018-03-28 05:58] LABS: ABNORMAL IP MESSAGE 1; HEMOGLOBIN 9.3 g/dl (14.0-18.0); MEAN CORPUSCULAR VOLUME 86.6 fl (82.0-101.0); PLATELET COUNT 295 10^3/UL (140-415); POSITIVE DIFF @See below; RED BLOOD COUNT 3.58 10^6/ul (4.70-6.10); RED CELL DISTRIBUTION WIDTH 21.8 % (11.5-14.5)
[2018-03-28 05:58] LABS: WHITE BLOOD COUNT 12.2 10^3/ul (4.8-10.8)
[2018-03-28 06:07] LABS: ADD MAN DIFF? YES
[2018-03-28] MEDS: LEVOTHYROXINE 100 MCG TAB PO (06:19)
[2018-03-28] MEDS: PANTOPRAZOLE 40 MG INJ IV (06:19)
[2018-03-28] MEDS: BUMETANIDE 1 MG INJ IV ×2 (06:19→17:37)
[2018-03-28 06:32] LABS: ANION GAP 14 (8-16); BLOOD UREA NITROGEN 33 mg/dl (7-20); CALCIUM 7.4 mg/dl (8.4-10.2); CARBON DIOXIDE 31 mmol/L (21-31); CHLORIDE 100 mmol/L (97-110); CREATININE 1.54 mg/dl (0.61-1.24); GLUCOSE 92 mg/dl (70-220); SODIUM 141 mmol/L (135-144)
[2018-03-28 07:06] LABS: ANISOCYTOSIS 1+ (0-0); BAND NEUTROPHILS #M 0.6 10^3/ul (0.0-0.6); BAND NEUTROPHILS % (M) 5 % (0-4); EOSINOPHILS % (M) 6 % (0-7); LYMPHOCYTES #M 1.7 10^3/ul (0.8-2.9); LYMPHOCYTES % (M) 14 % (15-51); METAMYELOCYTES #M 0.2 10^3/ul (0.0-0.0); METAMYELOCYTES %M 2 % (0-0); MICROCYTOSIS 1+ (0-0); MONOCYTES % (M) 17 % (0-11); MYELOCYTES #M 0.4 10^3/ul (0.0-0.0); MYELOCYTES % (M) 4 % (0-0); PLATELET ESTIMATE NORMAL; POLYCHROMASIA 3+ (0-0); REACTIVE LYMPHOCYTES #M 0.2 10^3/ul (0.0-0.0); REACTIVE LYMPHOCYTES% (M) 2 % (0-0); SEG NEUT #M 6.2 10^3/ul (1.6-7.5); SEGMENTED NEUTROPHILS (M) % 50 % (39-77); SMUDGE%M 24 % (0-0); TARGET CELLS 1+ (0-0)
[2018-03-28] MEDS: CITRIC ACID/SODIUM CITRATE 15 ML CUP PO ×2 (08:16→20:33)
[2018-03-28] MEDS: POLYETHYLENE GLYCOL 17 GM PACKET PO (08:17)
[2018-03-28] MEDS: NICOTINE (21 MG/24 HR) PATCH TRANSDERM (08:17)
[2018-03-28] MEDS: MEROPENEM 1 GM/50ML(PMX) 50 ML IVPB (08:17)
[2018-03-28] MEDS: SODIUM HYPOCHLORITE (1/40) 1 APPLIC BTL IRR (08:17)
[2018-03-28] MEDS: FLUOCINONIDE 0.05% 15 GM CR TOP (08:17)
[2018-03-28] MEDS: LUBIPROSTONE 24 MCG CAP PO ×2 (08:17→20:37)
[2018-03-28] MEDS: PROPRANOLOL 20 MG TAB PO ×2 (09:12→20:37)
[2018-03-28] MEDS: VANCOMYCIN 1 GM 250 ML IVPB (20:27)
[2018-03-28] MEDS: TAMSULOSIN (SR) 0.4 MG CAP PO (20:36)
[2018-03-29] MEDS: MEROPENEM 1 GM/50ML(PMX) 50 ML IVPB ×3 (01:32→22:22)
[2018-03-29] MEDS: LEVALBUTEROL (NEB) 0.63 MG/3 ML AMP HHN ×4 (01:50→20:13)
[2018-03-29] MEDS: HYDROmorphONE 2 MG/ML SYG IV ×5 (02:48→21:39)
[2018-03-29] MEDS: PANTOPRAZOLE 40 MG INJ IV (06:34)
[2018-03-29] MEDS: LEVOTHYROXINE 100 MCG TAB PO (06:54)
[2018-03-29] MEDS: BUMETANIDE 1 MG INJ IV ×2 (06:54→18:19)
[2018-03-29 07:36] LABS: ADD MAN DIFF? NO
[2018-03-29 07:41] LABS: WHITE BLOOD COUNT 10.4 10^3/ul (4.8-10.8)
[2018-03-29 07:41] LABS: ABNORMAL IP MESSAGE 1; BASOPHIL # 0.1 10^3/ul (0.0-0.1); BASOPHILS % 0.7 % (0.0-2.0); EOSINOPHILS # 0.3 10^3/ul (0.0-0.5); EOSINOPHILS % 3.2 % (0.0-7.0); HEMOGLOBIN 8.3 g/dl (14.0-18.0); LYMPHOCYTES # 1.1 10^3/ul (0.8-2.9); LYMPHOCYTES % 10.5 % (15.0-51.0); MEAN CORPUSCULAR HEMOGLOBIN 26.3 pg (29.0-33.0); MEAN CORPUSCULAR HGB CONC 30.7 g/dl (32.0-37.0); MEAN CORPUSCULAR VOLUME 85.4 fl (82.0-101.0); MEAN PLATELET VOLUME 12.7 fl (7.4-10.4); MONOCYTE # 2.1 10^3/ul (0.3-0.9); NEUTROPHIL # 6.5 10^3/ul (1.6-7.5); PLATELET COUNT 280 10^3/UL (140-415); POSITIVE DIFF @See below; RED BLOOD COUNT 3.16 10^6/ul (4.70-6.10); RED CELL DISTRIBUTION WIDTH 21.8 % (11.5-14.5)
[2018-03-29 08:06] LABS: ANION GAP 12 (8-16); BLOOD UREA NITROGEN 31 mg/dl (7-20); CARBON DIOXIDE 30 mmol/L (21-31); CHLORIDE 101 mmol/L (97-110); CREATININE 1.48 mg/dl (0.61-1.24); GLUCOSE 81 mg/dl (70-220); POTASSIUM 4.1 mmol/L (3.5-5.1); SODIUM 139 mmol/L (135-144)
[2018-03-29] MEDS: LORAZEPAM 2 MG INJ IV ×2 (08:52→18:13)
[2018-03-29] MEDS: CITRIC ACID/SODIUM CITRATE 15 ML CUP PO ×2 (08:55→22:24)
[2018-03-29] MEDS: PROPRANOLOL 20 MG TAB PO ×2 (08:56→22:27)
[2018-03-29] MEDS: POLYETHYLENE GLYCOL 17 GM PACKET PO (08:57)
[2018-03-29] MEDS: NICOTINE (21 MG/24 HR) PATCH TRANSDERM (08:57)
[2018-03-29] MEDS: LUBIPROSTONE 24 MCG CAP PO ×2 (08:57→22:24)
[2018-03-29] MEDS: FLUOCINONIDE 0.05% 15 GM CR TOP (08:59)
[2018-03-29] MEDS: SODIUM HYPOCHLORITE (1/40) 1 APPLIC BTL IRR (09:15)
[2018-03-29] MEDS: VANCOMYCIN 1 GM 250 ML IVPB (19:58)
[2018-03-29] MEDS: TAMSULOSIN (SR) 0.4 MG CAP PO (22:24)
[2018-03-30] MEDS: HYDROmorphONE 2 MG/ML SYG IV ×5 (01:47→22:04)
[2018-03-30] MEDS: LEVALBUTEROL (NEB) 0.63 MG/3 ML AMP HHN ×4 (01:56→19:29)
[2018-03-30] MEDS: LORAZEPAM 2 MG INJ IV ×3 (03:37→23:02)
[2018-03-30] MEDS: LEVOTHYROXINE 100 MCG TAB PO (06:57)
[2018-03-30] MEDS: PANTOPRAZOLE 40 MG INJ IV (06:58)
[2018-03-30] MEDS: BUMETANIDE 1 MG INJ IV ×2 (06:58→17:56)
[2018-03-30 08:52] LABS: ADD MAN DIFF? NO
[2018-03-30] MEDS: SODIUM HYPOCHLORITE (1/40) 1 APPLIC BTL IRR (08:52)
[2018-03-30] MEDS: PROPRANOLOL 20 MG TAB PO ×2 (08:52→22:17)
[2018-03-30] MEDS: MEROPENEM 1 GM/50ML(PMX) 50 ML IVPB (08:52)
[2018-03-30] MEDS: CITRIC ACID/SODIUM CITRATE 15 ML CUP PO ×2 (08:52→22:16)
[2018-03-30] MEDS: FLUOCINONIDE 0.05% 15 GM CR TOP (08:53)
[2018-03-30] MEDS: NICOTINE (21 MG/24 HR) PATCH TRANSDERM (08:53)
[2018-03-30] MEDS: POLYETHYLENE GLYCOL 17 GM PACKET PO (08:54)
[2018-03-30] MEDS: LUBIPROSTONE 24 MCG CAP PO ×2 (08:54→22:16)
[2018-03-30 09:12] LABS: ABNORMAL IP MESSAGE 1; BASOPHIL # 0.1 10^3/ul (0.0-0.1); BASOPHILS % 1.2 % (0.0-2.0); EOSINOPHILS # 0.3 10^3/ul (0.0-0.5); EOSINOPHILS % 2.9 % (0.0-7.0); HEMATOCRIT 26.6 % (42.0-52.0); LYMPHOCYTES % 11.3 % (15.0-51.0); MEAN CORPUSCULAR HEMOGLOBIN 25.5 pg (29.0-33.0); MEAN CORPUSCULAR HGB CONC 30.1 g/dl (32.0-37.0); MEAN CORPUSCULAR VOLUME 84.7 fl (82.0-101.0); MEAN PLATELET VOLUME 13.3 fl (7.4-10.4); MONOCYTE # 1.9 10^3/ul (0.3-0.9); MONOCYTES % 21.4 % (0.0-11.0); NEUTROPHIL # 5.3 10^3/ul (1.6-7.5); NEUTROPHILS % 59.9 % (39.0-77.0); PLATELET COUNT 284 10^3/UL (140-415); POSITIVE DIFF @See below; RED BLOOD COUNT 3.14 10^6/ul (4.70-6.10); RED CELL DISTRIBUTION WIDTH 22.1 % (11.5-14.5)
[2018-03-30 09:12] LABS: WHITE BLOOD COUNT 8.9 10^3/ul (4.8-10.8)
[2018-03-30 09:16] LABS: ANION GAP 12 (8-16); BLOOD UREA NITROGEN 28 mg/dl (7-20); CALCIUM 7.1 mg/dl (8.4-10.2); CARBON DIOXIDE 31 mmol/L (21-31); CHLORIDE 100 mmol/L (97-110); CREATININE 1.58 mg/dl (0.61-1.24); GLUCOSE 80 mg/dl (70-220); SODIUM 139 mmol/L (135-144)
[2018-03-30] MEDS: VANCOMYCIN 1 GM 250 ML IVPB (22:15)
[2018-03-30] MEDS: TAMSULOSIN (SR) 0.4 MG CAP PO (22:17)
[2018-03-31] MEDS: LEVALBUTEROL (NEB) 0.63 MG/3 ML AMP HHN ×4 (02:00→19:45)
[2018-03-31] MEDS: MEROPENEM 1 GM/50ML(PMX) 50 ML IVPB ×3 (02:12→21:12)
[2018-03-31] MEDS: HYDROmorphONE 2 MG/ML SYG IV ×5 (02:12→22:15)
[2018-03-31 06:02] LABS: ADD MAN DIFF? NO
[2018-03-31 06:07] LABS: WHITE BLOOD COUNT 9.7 10^3/ul (4.8-10.8)
[2018-03-31 06:07] LABS: ABNORMAL IP MESSAGE 1; BASOPHIL # 0.1 10^3/ul (0.0-0.1); BASOPHILS % 1.3 % (0.0-2.0); EOSINOPHILS # 0.2 10^3/ul (0.0-0.5); EOSINOPHILS % 2.4 % (0.0-7.0); HEMATOCRIT 27.8 % (42.0-52.0); HEMOGLOBIN 8.5 g/dl (14.0-18.0); MEAN CORPUSCULAR HEMOGLOBIN 26.1 pg (29.0-33.0); MEAN CORPUSCULAR HGB CONC 30.6 g/dl (32.0-37.0); MEAN CORPUSCULAR VOLUME 85.3 fl (82.0-101.0); MEAN PLATELET VOLUME 12.8 fl (7.4-10.4); MONOCYTE # 2.1 10^3/ul (0.3-0.9); MONOCYTES % 21.6 % (0.0-11.0); NEUTROPHILS % 61.1 % (39.0-77.0); PLATELET COUNT 276 10^3/UL (140-415); POSITIVE DIFF @See below; RED BLOOD COUNT 3.26 10^6/ul (4.70-6.10); RED CELL DISTRIBUTION WIDTH 21.5 % (11.5-14.5)
[2018-03-31] MEDS: BUMETANIDE 1 MG INJ IV ×2 (06:42→18:19)
[2018-03-31] MEDS: LORAZEPAM 2 MG INJ IV ×3 (06:42→22:58)
[2018-03-31] MEDS: PANTOPRAZOLE 40 MG INJ IV (06:43)
[2018-03-31 06:49] LABS: ANION GAP 13 (8-16); BLOOD UREA NITROGEN 29 mg/dl (7-20); CALCIUM 7.2 mg/dl (8.4-10.2); CARBON DIOXIDE 30 mmol/L (21-31); CHLORIDE 102 mmol/L (97-110); CREATININE 1.46 mg/dl (0.61-1.24); GLUCOSE 74 mg/dl (70-220); POTASSIUM 4.5 mmol/L (3.5-5.1); SODIUM 140 mmol/L (135-144)
[2018-03-31] MEDS: POLYETHYLENE GLYCOL 17 GM PACKET PO (09:00)
[2018-03-31] MEDS: CITRIC ACID/SODIUM CITRATE 15 ML CUP PO ×2 (09:08→21:12)
[2018-03-31] MEDS: FLUOCINONIDE 0.05% 15 GM CR TOP (09:09)
[2018-03-31] MEDS: NICOTINE (21 MG/24 HR) PATCH TRANSDERM (09:09)
[2018-03-31] MEDS: LUBIPROSTONE 24 MCG CAP PO ×2 (09:10→21:11)
[2018-03-31] MEDS: SODIUM HYPOCHLORITE (1/40) 1 APPLIC BTL IRR (09:10)
[2018-03-31] MEDS: PROPRANOLOL 20 MG TAB PO ×2 (09:11→21:12)
[2018-03-31] MEDS: LEVOTHYROXINE 100 MCG TAB PO (09:11)
[2018-03-31] MEDS: TAMSULOSIN (SR) 0.4 MG CAP PO (21:11)
[2018-03-31] MEDS: VANCOMYCIN 1 GM 250 ML IVPB (22:07)
[2018-04-01] MEDS: HYDROmorphONE 2 MG/ML SYG IV ×5 (02:01→22:12)
[2018-04-01] MEDS: LEVALBUTEROL (NEB) 0.63 MG/3 ML AMP HHN ×4 (02:11→20:00)
[2018-04-01] MEDS: PANTOPRAZOLE 40 MG INJ IV (06:01)
[2018-04-01] MEDS: BUMETANIDE 1 MG INJ IV (06:01)
[2018-04-01 06:36] LABS: ADD MAN DIFF? NO
[2018-04-01 06:41] LABS: ABNORMAL IP MESSAGE 1; BASOPHIL # 0.1 10^3/ul (0.0-0.1); EOSINOPHILS # 0.2 10^3/ul (0.0-0.5); EOSINOPHILS % 1.4 % (0.0-7.0); HEMOGLOBIN 8.7 g/dl (14.0-18.0); LYMPHOCYTES # 1.2 10^3/ul (0.8-2.9); LYMPHOCYTES % 9.5 % (15.0-51.0); MEAN CORPUSCULAR HEMOGLOBIN 25.4 pg (29.0-33.0); MEAN CORPUSCULAR VOLUME 84.8 fl (82.0-101.0); MEAN PLATELET VOLUME 11.9 fl (7.4-10.4); MONOCYTE # 2.6 10^3/ul (0.3-0.9); MONOCYTES % 20.9 % (0.0-11.0); NEUTROPHIL # 7.9 10^3/ul (1.6-7.5); NEUTROPHILS % 64.7 % (39.0-77.0); PLATELET COUNT 273 10^3/UL (140-415); POSITIVE DIFF @See below; RED BLOOD COUNT 3.42 10^6/ul (4.70-6.10); RED CELL DISTRIBUTION WIDTH 21.6 % (11.5-14.5)
[2018-04-01 06:41] LABS: WHITE BLOOD COUNT 12.2 10^3/ul (4.8-10.8)
[2018-04-01] MEDS: LEVOTHYROXINE 100 MCG TAB PO (07:00)
[2018-04-01 07:11] LABS: ANION GAP 15 (8-16); BLOOD UREA NITROGEN 30 mg/dl (7-20); CALCIUM 7.6 mg/dl (8.4-10.2); CARBON DIOXIDE 29 mmol/L (21-31); CHLORIDE 102 mmol/L (97-110); CREATININE 1.67 mg/dl (0.61-1.24); GLUCOSE 87 mg/dl (70-220); POTASSIUM 4.7 mmol/L (3.5-5.1); SODIUM 141 mmol/L (135-144)
[2018-04-01] MEDS: CITRIC ACID/SODIUM CITRATE 15 ML CUP PO ×2 (08:49→22:10)
[2018-04-01] MEDS: POLYETHYLENE GLYCOL 17 GM PACKET PO (08:49)
[2018-04-01] MEDS: NICOTINE (21 MG/24 HR) PATCH TRANSDERM (08:50)
[2018-04-01] MEDS: LORAZEPAM 2 MG INJ IV ×2 (08:50→18:35)
[2018-04-01] MEDS: LUBIPROSTONE 24 MCG CAP PO ×2 (08:51→22:10)
[2018-04-01] MEDS: FLUOCINONIDE 0.05% 15 GM CR TOP (08:51)
[2018-04-01] MEDS: PROPRANOLOL 20 MG TAB PO ×2 (08:51→22:11)
[2018-04-01] MEDS: SODIUM HYPOCHLORITE (1/40) 1 APPLIC BTL IRR (09:55)
[2018-04-01] MEDS: MEROPENEM 1 GM/50ML(PMX) 50 ML IVPB ×2 (09:55→22:10)
[2018-04-01] MEDS ORDERED: VANCOMYCIN 1 GM 250 ML IVPB (12:30)
[2018-04-01] MEDS: BUMETANIDE 1 MG TAB PO (18:01)
[2018-04-01 21:36] LABS: VANCOMYCIN,TROUGH 16.6 ug/ml (10.0-20.0)
[2018-04-01] MEDS: TAMSULOSIN (SR) 0.4 MG CAP PO (22:11)
[2018-04-01] MEDS: VANCOMYCIN 1 GM 250 ML IVPB (22:52)
[2018-04-02] MEDS: LEVALBUTEROL (NEB) 0.63 MG/3 ML AMP HHN ×3 (01:44→13:34)
[2018-04-02] MEDS: HYDROmorphONE 2 MG/ML SYG IV ×4 (02:36→15:55)
[2018-04-02] MEDS: LORAZEPAM 2 MG INJ IV ×2 (02:58→11:36)
[2018-04-02] MEDS: PANTOPRAZOLE 40 MG INJ IV (06:30)
[2018-04-02] MEDS: BUMETANIDE 1 MG TAB PO (06:30)
[2018-04-02 07:13] LABS: ADD MAN DIFF? NO
[2018-04-02 07:19] LABS: ABNORMAL IP MESSAGE 1; BASOPHIL # 0.1 10^3/ul (0.0-0.1); BASOPHILS % 0.8 % (0.0-2.0); EOSINOPHILS # 0.1 10^3/ul (0.0-0.5); HEMATOCRIT 26.6 % (42.0-52.0); HEMOGLOBIN 8.1 g/dl (14.0-18.0); LYMPHOCYTES # 1.3 10^3/ul (0.8-2.9); LYMPHOCYTES % 13.3 % (15.0-51.0); MEAN CORPUSCULAR HEMOGLOBIN 25.8 pg (29.0-33.0); MEAN CORPUSCULAR HGB CONC 30.5 g/dl (32.0-37.0); MEAN CORPUSCULAR VOLUME 84.7 fl (82.0-101.0); MEAN PLATELET VOLUME 13.4 fl (7.4-10.4); MONOCYTE # 1.8 10^3/ul (0.3-0.9); MONOCYTES % 18.7 % (0.0-11.0); NEUTROPHIL # 6.1 10^3/ul (1.6-7.5); NEUTROPHILS % 64.1 % (39.0-77.0); PLATELET COUNT 232 10^3/UL (140-415); POSITIVE DIFF @See below; RED BLOOD COUNT 3.14 10^6/ul (4.70-6.10); RED CELL DISTRIBUTION WIDTH 21.4 % (11.5-14.5)
[2018-04-02 07:19] LABS: WHITE BLOOD COUNT 9.5 10^3/ul (4.8-10.8)
[2018-04-02 07:44] LABS: ALANINE AMINOTRANSFERASE 37 IU/L (13-69); ALBUMIN/GLOBULIN RATIO 1.03; ALKALINE PHOSPHATASE 204 IU/L (42-121); ANION GAP 12 (8-16); ASPARTATE AMINO TRANSFERASE 70 IU/L (15-46); BILIRUBIN,INDIRECT 0.3 mg/dl (0-1.1); BILIRUBIN,TOTAL 0.3 mg/dl (0.2-1.3); BLOOD UREA NITROGEN 34 mg/dl (7-20); CALCIUM 7.5 mg/dl (8.4-10.2); CARBON DIOXIDE 29 mmol/L (21-31); CHLORIDE 102 mmol/L (97-110); CREATININE 1.53 mg/dl (0.61-1.24); GLUCOSE 79 mg/dl (70-220); POTASSIUM 4.2 mmol/L (3.5-5.1); SODIUM 139 mmol/L (135-144); TOTAL PROTEIN 5.9 g/dl (6.1-8.1)
[2018-04-02] MEDS: PROPRANOLOL 20 MG TAB PO (09:05)
[2018-04-02] MEDS: LUBIPROSTONE 24 MCG CAP PO (09:05)
[2018-04-02] MEDS: CITRIC ACID/SODIUM CITRATE 15 ML CUP PO (09:06)
[2018-04-02] MEDS: NICOTINE (21 MG/24 HR) PATCH TRANSDERM (09:10)
[2018-04-02] MEDS: POLYETHYLENE GLYCOL 17 GM PACKET PO (09:11)
[2018-04-02] MEDS: MEROPENEM 1 GM/50ML(PMX) 50 ML IVPB (09:15)
[2018-04-02] MEDS: LEVOTHYROXINE 100 MCG TAB PO (10:51)
[2018-04-02] MEDS ORDERED: VANCOMYCIN 750 MG in SOD CHLORIDE 0.9% 150 ML IVPB (22:00)
== END 2018-04-02 17:40 | disposition left against medical advice (07) | DRG 853 ==
LOC: 6WM 03-19 19:34 → E/R 02:25 → 2NE 03-26 16:04 → 6WM 04:05
PROC: 0JBR0ZZ Excision of Left Foot Subcutaneous Tissue and Fascia, Open Approach (ICD-10-PCS; principal; 2018-03-19)
PROC: 0W9G3ZZ Drainage of Peritoneal Cavity, Percutaneous Approach (ICD-10-PCS; 2018-03-19)
DX: A41.9 Sepsis, unspecified organism (principal); J96.00 Acute respiratory failure, unspecified whether with hypoxia or hypercapnia; J18.9 Pneumonia, unspecified organism; N17.9 Acute kidney failure, unspecified; L03.116 Cellulitis of left lower limb; L03.115 Cellulitis of right lower limb; I50.30 Unspecified diastolic (congestive) heart failure; L97.529 Non-pressure chronic ulcer of other part of left foot with unspecified severity; Z91.14 Patient's other noncompliance with medication regimen; Z59.0 Homelessness; Z72.0 Tobacco use; K70.31 Alcoholic cirrhosis of liver with ascites; N40.0 Benign prostatic hyperplasia without lower urinary tract symptoms; M10.9 Gout, unspecified; I87.8 Other specified disorders of veins; B96.20 Unspecified Escherichia coli [E. coli] as the cause of diseases classified elsewhere; B95.62 Methicillin resistant Staphylococcus aureus infection as the cause of diseases classified elsewhere; B95.2 Enterococcus as the cause of diseases classified elsewhere; Z16.39 Resistance to other specified antimicrobial drug; N18.9 Chronic kidney disease, unspecified; K59.03 Drug induced constipation; T40.2X5A Adverse effect of other opioids, initial encounter
CPT/HCPCS: 36415; 36430; 71045; 76705; 80048; 80053; 80202; 81001; 82565; 83605; 83880; 84484; 84520; 85025; 85610; 85730; 86850; 86900; 86901; 86920; 87040; 87070; 87081; 93005; 94640; 94660; 94664; 97161; 99291-25

== ENCOUNTER 2018-04-08 15:25 | Inpatient (IN) | payer BC ==
[2018-04-08 15:57] LABS: ADD MAN DIFF? NO
[2018-04-08] MEDS: ALBUTEROL 0.083% (NEB) 2.5 MG/3 ML AMP NEB (15:58)
[2018-04-08] MEDS: IPRATROPIUM (NEB) 0.5 MG/2.5 ML AMP NEB (15:58)
[2018-04-08 16:01] LABS: WHITE BLOOD COUNT 9.2 10^3/ul (4.8-10.8)
[2018-04-08 16:01] LABS: ABNORMAL IP MESSAGE 1; BASOPHIL # 0.1 10^3/ul (0.0-0.1); BASOPHILS % 1.3 % (0.0-2.0); EOSINOPHILS # 0.4 10^3/ul (0.0-0.5); EOSINOPHILS % 4.4 % (0.0-7.0); HEMATOCRIT 28.7 % (42.0-52.0); LYMPHOCYTES # 1.5 10^3/ul (0.8-2.9); LYMPHOCYTES % 16.4 % (15.0-51.0); MEAN CORPUSCULAR HEMOGLOBIN 25.9 pg (29.0-33.0); MEAN CORPUSCULAR HGB CONC 31.4 g/dl (32.0-37.0); MEAN CORPUSCULAR VOLUME 82.7 fl (82.0-101.0); MEAN PLATELET VOLUME 12.3 fl (7.4-10.4); MONOCYTE # 1.1 10^3/ul (0.3-0.9); MONOCYTES % 12.4 % (0.0-11.0); NEUTROPHIL # 5.7 10^3/ul (1.6-7.5); NEUTROPHILS % 61.5 % (39.0-77.0); NUCLEATED RED BLOOD CELLS% 0.4 /100WBC (0.0-0.0); PLATELET COUNT 250 10^3/UL (140-415); POSITIVE DIFF @See below; RED BLOOD COUNT 3.47 10^6/ul (4.70-6.10); RED CELL DISTRIBUTION WIDTH 21.1 % (11.5-14.5)
[2018-04-08 16:17] LABS: ANION GAP 14 (8-16); BLOOD UREA NITROGEN 22 mg/dl (7-20); CALCIUM 8.2 mg/dl (8.4-10.2); CARBON DIOXIDE 25 mmol/L (21-31); CHLORIDE 103 mmol/L (97-110); CREATININE 1.36 mg/dl (0.61-1.24); GLUCOSE 88 mg/dl (70-220); POTASSIUM 4.4 mmol/L (3.5-5.1); SODIUM 138 mmol/L (135-144)
[2018-04-08 16:29] LABS: TROPONIN-I < 0.012 ng/ml (0.000-0.120)
[2018-04-08 17:03] LABS: B-TYPE NATRIURETIC PEPTIDE 2410 PG/ML (0-125)
[2018-04-08] MEDS ORDERED: ACETAMINOPHEN 325 MG TAB PO (17:30)
[2018-04-08] MEDS ORDERED: ONDANSETRON 4 MG INJ IV ×2 (17:30→22:30)
[2018-04-08] MEDS: PIPER-TAZO 3.375 GM IV (PMX) 100 ML IVPB (17:59)
[2018-04-08] MEDS: METHYLPREDNISOLONE 125 MG INJ IV (17:59)
[2018-04-08 18:55] LABS: LACTIC ACID 3.6 mmol/L (0.5-2.0)
[2018-04-08] MEDS: VANCOMYCIN 1 GM (PMX) 250 ML IVPB (19:06)
[2018-04-08] MEDS: FUROSEMIDE 20 MG INJ IV (19:06)
[2018-04-08] MEDS ORDERED: CITRIC ACID/NA CIT (1 MEQ/ML POSYG) PO (21:00)
[2018-04-08] MEDS ORDERED: VANCOMYCIN IV PER PHARMACY XX (22:30)
[2018-04-08] MEDS ORDERED: NACL 0.9% 3 ML SYG IV (22:30)
[2018-04-08 22:38] LABS: CREATINE KINASE 44 IU/L (23-200)
[2018-04-08 22:51] LABS: CK INDEX 2.8; CK-MB 1.24 ng/ml (0.0-2.4); TROPONIN-I < 0.012 ng/ml (0.000-0.120)
[2018-04-08] MEDS: FERROUS SULFATE (EC) 325 MG TAB PO (23:33)
[2018-04-08] MEDS: DOCUSATE SODIUM 100 MG CAP PO (23:33)
[2018-04-08] MEDS: PROPRANOLOL 20 MG TAB PO (23:34)
[2018-04-08] MEDS: CITRIC ACID/SODIUM CITRATE 15 ML CUP PO (23:35)
[2018-04-08] MEDS: VANCOMYCIN 1 GM 250 ML IVPB (23:40)
[2018-04-08] MEDS: morphine 2 MG INJ IV (23:55)
[2018-04-09] MEDS: morphine 2 MG INJ IV ×7 (04:15→20:50)
[2018-04-09 06:22] LABS: ABNORMAL IP MESSAGE 1; ADD MAN DIFF? NO; BASOPHIL # 0.1 10^3/ul (0.0-0.1); BASOPHILS % 0.7 % (0.0-2.0); EOSINOPHILS % 0.1 % (0.0-7.0); HEMATOCRIT 28.8 % (42.0-52.0); HEMOGLOBIN 8.7 g/dl (14.0-18.0); LYMPHOCYTES # 0.6 10^3/ul (0.8-2.9); LYMPHOCYTES % 7.2 % (15.0-51.0); MEAN CORPUSCULAR HGB CONC 30.2 g/dl (32.0-37.0); MEAN CORPUSCULAR VOLUME 82.8 fl (82.0-101.0); MEAN PLATELET VOLUME 13.1 fl (7.4-10.4); MONOCYTE # 0.2 10^3/ul (0.3-0.9); MONOCYTES % 2.8 % (0.0-11.0); NEUTROPHIL # 7.1 10^3/ul (1.6-7.5); NEUTROPHILS % 84.8 % (39.0-77.0); PLATELET COUNT 235 10^3/UL (140-415); POSITIVE DIFF @See below; RED BLOOD COUNT 3.48 10^6/ul (4.70-6.10); RED CELL DISTRIBUTION WIDTH 21.4 % (11.5-14.5)
[2018-04-09 06:22] LABS: WHITE BLOOD COUNT 8.4 10^3/ul (4.8-10.8)
[2018-04-09] MEDS: LEVOTHYROXINE 100 MCG TAB PO (06:30)
[2018-04-09] MEDS: PANTOPRAZOLE 40 MG INJ IV (06:31)
[2018-04-09] MEDS: PIPER-TAZO 3.375 GM IV (PMX) 100 ML IVPB ×3 (06:32→20:50)
[2018-04-09 06:55] LABS: ALANINE AMINOTRANSFERASE 27 IU/L (13-69); ALBUMIN 3.2 g/dl (3.3-4.9); ALKALINE PHOSPHATASE 241 IU/L (42-121); ANION GAP 18 (8-16); ASPARTATE AMINO TRANSFERASE 53 IU/L (15-46); BILIRUBIN,INDIRECT 0.3 mg/dl (0-1.1); BILIRUBIN,TOTAL 0.3 mg/dl (0.2-1.3); BLOOD UREA NITROGEN 21 mg/dl (7-20); CALCIUM 8.6 mg/dl (8.4-10.2); CARBON DIOXIDE 23 mmol/L (21-31); CHLORIDE 105 mmol/L (97-110); CREATININE 1.36 mg/dl (0.61-1.24); GLUCOSE 194 mg/dl (70-220); POTASSIUM 4.2 mmol/L (3.5-5.1); SODIUM 142 mmol/L (135-144); TOTAL PROTEIN 6.1 g/dl (6.1-8.1)
[2018-04-09 06:56] LABS: CREATINE KINASE 38 IU/L (23-200)
[2018-04-09 07:03] LABS: CK INDEX 2.8; CK-MB 1.07 ng/ml (0.0-2.4); TROPONIN-I < 0.012 ng/ml (0.000-0.120)
[2018-04-09 07:10] LABS: LACTIC ACID 5.2 mmol/L (0.5-2.0)
[2018-04-09] MEDS: LORAZEPAM 2 MG INJ IV ×4 (07:36→20:50)
[2018-04-09] MEDS: METOPROLOL (XL) 50 MG TAB PO ×2 (08:20→20:49)
[2018-04-09] MEDS: PROPRANOLOL 20 MG TAB PO (08:20)
[2018-04-09] MEDS: FERROUS SULFATE (EC) 325 MG TAB PO ×2 (08:20→20:49)
[2018-04-09] MEDS: CITRIC ACID/SODIUM CITRATE 15 ML CUP PO ×2 (08:20→20:48)
[2018-04-09] MEDS: ALLOPURINOL 100 MG TAB PO (08:20)
[2018-04-09 09:17] LABS: ANISOCYTOSIS 1+ (0-0); BAND NEUTROPHILS #M 0.2 10^3/ul (0.0-0.6); BAND NEUTROPHILS % (M) 3 % (0-4); BASOPHIL #M 0.1 10^3/ul (0.0-0.0); BASOPHILS % (M) 2 % (0-2); GIANT THROMBO% (M) 2 % (0-0); HYPOCHROMASIA 1+ (0-0); LYMPHOCYTES #M 0.5 10^3/ul (0.8-2.9); LYMPHOCYTES % (M) 7 % (15-51); MICROCYTOSIS 1+ (0-0); MONOCYTE #M 0.2 10^3/ul (0.3-0.9); MONOCYTES % (M) 3 % (0-11); MYELOCYTES % (M) 1 % (0-0); PLATELET ESTIMATE NORMAL; POIKILOCYTOSIS 2+ (0-0); POLYCHROMASIA 3+ (0-0); SEG NEUT #M 7.1 10^3/ul (1.6-7.5); SEGMENTED NEUTROPHILS (M) % 84 % (39-77)
[2018-04-09] MEDS: hydrALAzine 20 MG INJ IV ×2 (10:18→16:35)
[2018-04-09] MEDS: ALBUTEROL/IPRATROPIUM (NEB) 3 ML AMP HHN ×3 (11:30→23:42)
[2018-04-09] MEDS: COLLAGENASE 5 GM (UD JAR) TOP (12:30)
[2018-04-09 12:37] LABS: LACTIC ACID 3.8 mmol/L (0.5-2.0)
[2018-04-09] MEDS: FUROSEMIDE 40 MG INJ IV (12:43)
[2018-04-09 13:14] LABS: HEMOGLOBIN A1C 4.7 % (0-5.9)
[2018-04-09] MEDS: NICOTINE (14 MG/24 HR) PATCH TRANSDERM (16:00)
[2018-04-09] MEDS ORDERED: morphine LIQ (10 MG/5 ML) CUP PO (17:00)
[2018-04-09] MEDS: DOCUSATE SODIUM 100 MG CAP PO (20:48)
[2018-04-09] MEDS ORDERED: VANCOMYCIN 1 GM 250 ML IVPB (22:00)
[2018-04-09] MEDS ORDERED: VANCOMYCIN 1.25 GM in SOD CHLORIDE 0.9% 250 ML IVPB (22:00)
[2018-04-10] MEDS: morphine 2 MG INJ IV ×2 (01:52→05:29)
[2018-04-10] MEDS: ALBUTEROL/IPRATROPIUM (NEB) 3 ML AMP HHN ×4 (03:58→23:24)
[2018-04-10] MEDS: PANTOPRAZOLE 40 MG INJ IV (05:29)
[2018-04-10] MEDS: PIPER-TAZO 3.375 GM IV (PMX) 100 ML IVPB ×2 (05:29→13:34)
[2018-04-10] MEDS: LORAZEPAM 2 MG INJ IV ×3 (05:30→23:57)
[2018-04-10] MEDS: LEVOTHYROXINE 100 MCG TAB PO (06:24)
[2018-04-10 06:44] LABS: WHITE BLOOD COUNT 19.5 10^3/ul (4.8-10.8)
[2018-04-10 06:44] LABS: ABNORMAL IP MESSAGE 1; HEMATOCRIT 31.8 % (42.0-52.0); HEMOGLOBIN 9.6 g/dl (14.0-18.0); MEAN CORPUSCULAR HEMOGLOBIN 25.5 pg (29.0-33.0); MEAN CORPUSCULAR HGB CONC 30.2 g/dl (32.0-37.0); MEAN CORPUSCULAR VOLUME 84.4 fl (82.0-101.0); NUCLEATED RED BLOOD CELLS% 0.2 /100WBC (0.0-0.0); PLATELET COUNT 290 10^3/UL (140-415); POSITIVE DIFF @See below; RED BLOOD COUNT 3.77 10^6/ul (4.70-6.10); RED CELL DISTRIBUTION WIDTH 22.3 % (11.5-14.5)
[2018-04-10 06:55] LABS: ADD MAN DIFF? YES
[2018-04-10 07:26] LABS: ALANINE AMINOTRANSFERASE 19 IU/L (13-69); ALBUMIN 3.8 g/dl (3.3-4.9); ALBUMIN/GLOBULIN RATIO 1.15; ALKALINE PHOSPHATASE 240 IU/L (42-121); ANION GAP 12 (8-16); ASPARTATE AMINO TRANSFERASE 43 IU/L (15-46); BILIRUBIN,INDIRECT 0.6 mg/dl (0-1.1); BILIRUBIN,TOTAL 0.6 mg/dl (0.2-1.3); BLOOD UREA NITROGEN 26 mg/dl (7-20); CALCIUM 9.1 mg/dl (8.4-10.2); CARBON DIOXIDE 28 mmol/L (21-31); CHLORIDE 105 mmol/L (97-110); CREATININE 1.59 mg/dl (0.61-1.24); GLUCOSE 112 mg/dl (70-220); POTASSIUM 4.1 mmol/L (3.5-5.1); SODIUM 141 mmol/L (135-144); TOTAL PROTEIN 7.1 g/dl (6.1-8.1)
[2018-04-10] MEDS: CITRIC ACID/SODIUM CITRATE 15 ML CUP PO ×2 (08:12→20:35)
[2018-04-10] MEDS: FERROUS SULFATE (EC) 325 MG TAB PO ×2 (08:12→20:36)
[2018-04-10] MEDS: ALLOPURINOL 100 MG TAB PO (08:12)
[2018-04-10] MEDS: COLLAGENASE 5 GM (UD JAR) TOP (08:12)
[2018-04-10] MEDS: NICOTINE (14 MG/24 HR) PATCH TRANSDERM (08:13)
[2018-04-10] MEDS: METOPROLOL (XL) 50 MG TAB PO ×2 (08:13→20:37)
[2018-04-10] MEDS: NIFEdipine (XL) 60 MG TAB PO (08:20)
[2018-04-10] MEDS: NA PHOSPHATE/BIPHOS 133 ML ENEMA PR (08:20)
[2018-04-10] MEDS: HYDROmorphONE 2 MG/ML SYG IV ×3 (08:21→20:35)
[2018-04-10 08:27] LABS: ANISOCYTOSIS 1+ (0-0); BAND NEUTROPHILS #M 1.3 10^3/ul (0.0-0.6); BAND NEUTROPHILS % (M) 7 % (0-4); GIANT THROMBO% (M) 1 % (0-0); LYMPHOCYTES #M 0.5 10^3/ul (0.8-2.9); LYMPHOCYTES % (M) 3 % (15-51); MICROCYTOSIS 1+ (0-0); MONOCYTE #M 1.1 10^3/ul (0.3-0.9); MONOCYTES % (M) 6 % (0-11); PLATELET ESTIMATE NORMAL; POIKILOCYTOSIS 1+ (0-0); REACTIVE LYMPHOCYTES #M 0.1 10^3/ul (0.0-0.0); REACTIVE LYMPHOCYTES% (M) 1 % (0-0); SEG NEUT #M 16.4 10^3/ul (1.6-7.5); SEGMENTED NEUTROPHILS (M) % 83 % (39-77); SMUDGE%M 34 % (0-0)
[2018-04-10] MEDS: LUBIPROSTONE 24 MCG CAP PO ×2 (10:15→20:35)
[2018-04-10] MEDS ORDERED: VANCOMYCIN IV PER PHARMACY XX (10:30)
[2018-04-10] MEDS ORDERED: VANCOMYCIN 1 GM 250 ML IVPB (11:00)
[2018-04-10] MEDS: MEROPENEM 500MG/50 ML (PMX) 50 ML IVPB ×2 (11:56→20:35)
[2018-04-10] MEDS: ISOSORBIDE DINITRATE 20 MG TAB PO ×2 (13:34→20:36)
[2018-04-10] MEDS: VANCOMYCIN 750 MG in SOD CHLORIDE 0.9% 150 ML IVPB (14:09)
[2018-04-10] MEDS: LIDOCAINE 1% (MPF) 5 ML VIAL (16:13)
[2018-04-10] MEDS: ACETYLCYSTEINE 20% 4 ML VIAL NEB ×2 (17:04→23:24)
[2018-04-10] MEDS: DOCUSATE SODIUM 100 MG CAP PO (20:35)
[2018-04-11] MEDS: HYDROmorphONE 2 MG/ML SYG IV ×5 (03:53→20:17)
[2018-04-11] MEDS: LEVOTHYROXINE 100 MCG TAB PO (06:16)
[2018-04-11] MEDS: PANTOPRAZOLE 40 MG INJ IV (06:16)
[2018-04-11 07:36] LABS: ABNORMAL IP MESSAGE 1; HEMATOCRIT 27.2 % (42.0-52.0); HEMOGLOBIN 8.2 g/dl (14.0-18.0); MEAN CORPUSCULAR HEMOGLOBIN 25.7 pg (29.0-33.0); MEAN CORPUSCULAR HGB CONC 30.1 g/dl (32.0-37.0); MEAN CORPUSCULAR VOLUME 85.3 fl (82.0-101.0); MEAN PLATELET VOLUME 12.6 fl (7.4-10.4); NUCLEATED RED BLOOD CELLS% 0.2 /100WBC (0.0-0.0); PLATELET COUNT 197 10^3/UL (140-415); POSITIVE DIFF @See below; RED BLOOD COUNT 3.19 10^6/ul (4.70-6.10)
[2018-04-11 07:45] LABS: ADD MAN DIFF? YES
[2018-04-11 07:49] LABS: ANION GAP 10 (8-16); BLOOD UREA NITROGEN 24 mg/dl (7-20); CALCIUM 8.2 mg/dl (8.4-10.2); CARBON DIOXIDE 30 mmol/L (21-31); CHLORIDE 103 mmol/L (97-110); GLUCOSE 96 mg/dl (70-220); POTASSIUM 3.7 mmol/L (3.5-5.1); SODIUM 139 mmol/L (135-144)
[2018-04-11] MEDS: CITRIC ACID/SODIUM CITRATE 15 ML CUP PO ×2 (08:12→20:26)
[2018-04-11] MEDS: LUBIPROSTONE 24 MCG CAP PO ×2 (08:13→20:26)
[2018-04-11] MEDS: NICOTINE (14 MG/24 HR) PATCH TRANSDERM (08:13)
[2018-04-11] MEDS: COLLAGENASE 5 GM (UD JAR) TOP (08:13)
[2018-04-11] MEDS: ALLOPURINOL 100 MG TAB PO (08:13)
[2018-04-11] MEDS: ISOSORBIDE DINITRATE 20 MG TAB PO ×3 (08:14→20:35)
[2018-04-11] MEDS: METOPROLOL (XL) 50 MG TAB PO ×2 (08:14→20:36)
[2018-04-11] MEDS: FERROUS SULFATE (EC) 325 MG TAB PO ×2 (08:14→20:26)
[2018-04-11] MEDS: NIFEdipine (XL) 60 MG TAB PO (08:14)
[2018-04-11] MEDS: MEROPENEM 500MG/50 ML (PMX) 50 ML IVPB ×2 (08:16→20:27)
[2018-04-11] MEDS: ACETYLCYSTEINE 20% 4 ML VIAL NEB ×2 (08:55→16:00)
[2018-04-11] MEDS: ALBUTEROL/IPRATROPIUM (NEB) 3 ML AMP HHN ×2 (08:55→15:48)
[2018-04-11 09:12] LABS: ANISOCYTOSIS 1+ (0-0); EOSINOPHILS % (M) 1 % (0-7); GIANT THROMBO% (M) 1 % (0-0); HYPOCHROMASIA 1+ (0-0); LYMPHOCYTES #M 1.6 10^3/ul (0.8-2.9); LYMPHOCYTES % (M) 10 % (15-51); MICROCYTOSIS 1+ (0-0); MONOCYTES % (M) 13 % (0-11); OVALOCYTES 1+ (0-0); PLATELET ESTIMATE NORMAL; POIKILOCYTOSIS 1+ (0-0); POLYCHROMASIA 1+ (0-0); REACTIVE LYMPHOCYTES #M 0.3 10^3/ul (0.0-0.0); REACTIVE LYMPHOCYTES% (M) 2 % (0-0); SEGMENTED NEUTROPHILS (M) % 74 % (39-77); SMUDGE%M 3 % (0-0)
[2018-04-11 11:54] LABS: INR 1.34; PROTIME 16.8 Sec (11.9-14.9); PT RATIO 1.3
[2018-04-11] MEDS: VANCOMYCIN 750 MG in SOD CHLORIDE 0.9% 150 ML IVPB (12:04)
[2018-04-11] MEDS ORDERED: LORAZEPAM 2 MG INJ IV ×2 (19:00)
[2018-04-11] MEDS: DOCUSATE SODIUM 100 MG CAP PO (20:26)
[2018-04-11] MEDS: LORAZEPAM 2 MG INJ IV (21:10)
[2018-04-12] MEDS: ALBUTEROL/IPRATROPIUM (NEB) 3 ML AMP HHN ×4 (00:06→23:54)
[2018-04-12] MEDS: ACETYLCYSTEINE 20% 4 ML VIAL NEB ×4 (00:07→23:54)
[2018-04-12] MEDS: HYDROmorphONE 2 MG/ML SYG IV ×6 (00:24→21:25)
[2018-04-12] MEDS: PANTOPRAZOLE 40 MG INJ IV (05:23)
[2018-04-12] MEDS: LORAZEPAM 2 MG INJ IV ×3 (05:24→18:10)
[2018-04-12 06:09] LABS: ADD MAN DIFF? NO
[2018-04-12 06:27] LABS: ABNORMAL IP MESSAGE 1; BASOPHIL # 0.1 10^3/ul (0.0-0.1); BASOPHILS % 0.6 % (0.0-2.0); EOSINOPHILS # 0.3 10^3/ul (0.0-0.5); EOSINOPHILS % 2.2 % (0.0-7.0); HEMATOCRIT 28.1 % (42.0-52.0); HEMOGLOBIN 8.7 g/dl (14.0-18.0); LYMPHOCYTES # 0.9 10^3/ul (0.8-2.9); MEAN CORPUSCULAR VOLUME 83.9 fl (82.0-101.0); MONOCYTE # 1.6 10^3/ul (0.3-0.9); MONOCYTES % 10.8 % (0.0-11.0); NEUTROPHIL # 11.5 10^3/ul (1.6-7.5); NEUTROPHILS % 75.5 % (39.0-77.0); NUCLEATED RED BLOOD CELLS% 0.3 /100WBC (0.0-0.0); PLATELET COUNT 184 10^3/UL (140-415); POSITIVE DIFF @See below; RED BLOOD COUNT 3.35 10^6/ul (4.70-6.10); RED CELL DISTRIBUTION WIDTH 22.1 % (11.5-14.5)
[2018-04-12 06:27] LABS: WHITE BLOOD COUNT 15.2 10^3/ul (4.8-10.8)
[2018-04-12] MEDS: LEVOTHYROXINE 100 MCG TAB PO (06:56)
[2018-04-12 06:58] LABS: ANION GAP 16 (8-16); BLOOD UREA NITROGEN 28 mg/dl (7-20); CALCIUM 8.3 mg/dl (8.4-10.2); CARBON DIOXIDE 27 mmol/L (21-31); CHLORIDE 103 mmol/L (97-110); CREATININE 1.45 mg/dl (0.61-1.24); GLUCOSE 90 mg/dl (70-220); POTASSIUM 4.8 mmol/L (3.5-5.1); SODIUM 141 mmol/L (135-144)
[2018-04-12] MEDS: METOPROLOL (XL) 50 MG TAB PO ×2 (08:24→20:42)
[2018-04-12] MEDS: COLLAGENASE 5 GM (UD JAR) TOP (08:24)
[2018-04-12] MEDS: ALLOPURINOL 100 MG TAB PO (08:25)
[2018-04-12] MEDS: LUBIPROSTONE 24 MCG CAP PO ×2 (08:25→20:41)
[2018-04-12] MEDS: NIFEdipine (XL) 60 MG TAB PO (08:25)
[2018-04-12] MEDS: ISOSORBIDE DINITRATE 20 MG TAB PO ×3 (08:25→20:42)
[2018-04-12] MEDS: FERROUS SULFATE (EC) 325 MG TAB PO ×2 (08:25→20:42)
[2018-04-12] MEDS: SPIRONOLACTONE 25 MG TAB PO (08:25)
[2018-04-12] MEDS: FUROSEMIDE 20 MG INJ IV (08:25)
[2018-04-12] MEDS: CITRIC ACID/SODIUM CITRATE 15 ML CUP PO ×2 (08:26→20:41)
[2018-04-12] MEDS: MEROPENEM 500MG/50 ML (PMX) 50 ML IVPB ×2 (08:26→20:41)
[2018-04-12] MEDS: NICOTINE (14 MG/24 HR) PATCH TRANSDERM (08:26)
[2018-04-12] MEDS: VANCOMYCIN 750 MG in SOD CHLORIDE 0.9% 150 ML IVPB (10:50)
[2018-04-12] MEDS: DOCUSATE SODIUM 100 MG CAP PO (20:42)
[2018-04-13] MEDS: LORAZEPAM 2 MG INJ IV ×4 (00:24→21:02)
[2018-04-13] MEDS: HYDROmorphONE 2 MG/ML SYG IV ×6 (01:31→22:01)
[2018-04-13] MEDS: PANTOPRAZOLE 40 MG INJ IV (05:43)
[2018-04-13] MEDS: LEVOTHYROXINE 100 MCG TAB PO (06:31)
[2018-04-13 06:50] LABS: ADD MAN DIFF? NO
[2018-04-13 07:07] LABS: ABNORMAL IP MESSAGE 1; BASOPHIL # 0.1 10^3/ul (0.0-0.1); BASOPHILS % 0.6 % (0.0-2.0); EOSINOPHILS # 0.7 10^3/ul (0.0-0.5); EOSINOPHILS % 4.5 % (0.0-7.0); HEMATOCRIT 27.8 % (42.0-52.0); HEMOGLOBIN 8.3 g/dl (14.0-18.0); LYMPHOCYTES # 0.9 10^3/ul (0.8-2.9); MEAN CORPUSCULAR HEMOGLOBIN 25.5 pg (29.0-33.0); MEAN CORPUSCULAR HGB CONC 29.9 g/dl (32.0-37.0); MEAN CORPUSCULAR VOLUME 85.3 fl (82.0-101.0); MEAN PLATELET VOLUME 12.4 fl (7.4-10.4); MONOCYTE # 1.9 10^3/ul (0.3-0.9); NEUTROPHIL # 10.5 10^3/ul (1.6-7.5); NEUTROPHILS % 70.9 % (39.0-77.0); NUCLEATED RED BLOOD CELLS% 0.3 /100WBC (0.0-0.0); PLATELET COUNT 180 10^3/UL (140-415); POSITIVE DIFF @See below; RED BLOOD COUNT 3.26 10^6/ul (4.70-6.10); RED CELL DISTRIBUTION WIDTH 22.3 % (11.5-14.5)
[2018-04-13 07:07] LABS: WHITE BLOOD COUNT 14.8 10^3/ul (4.8-10.8)
[2018-04-13 07:25] LABS: ALANINE AMINOTRANSFERASE 24 IU/L (13-69); ALBUMIN/GLOBULIN RATIO 1.15; ALKALINE PHOSPHATASE 183 IU/L (42-121); ANION GAP 14 (8-16); ASPARTATE AMINO TRANSFERASE 41 IU/L (15-46); BILIRUBIN,INDIRECT 0.3 mg/dl (0-1.1); BILIRUBIN,TOTAL 0.3 mg/dl (0.2-1.3); BLOOD UREA NITROGEN 30 mg/dl (7-20); CARBON DIOXIDE 30 mmol/L (21-31); CHLORIDE 104 mmol/L (97-110); CREATININE 1.61 mg/dl (0.61-1.24); GLUCOSE 105 mg/dl (70-220); POTASSIUM 4.2 mmol/L (3.5-5.1); SODIUM 144 mmol/L (135-144); TOTAL PROTEIN 5.6 g/dl (6.1-8.1)
[2018-04-13] MEDS: ALBUTEROL/IPRATROPIUM (NEB) 3 ML AMP HHN ×2 (07:44→16:00)
[2018-04-13] MEDS: ACETYLCYSTEINE 20% 4 ML VIAL NEB ×2 (07:44→16:00)
[2018-04-13] MEDS: LUBIPROSTONE 24 MCG CAP PO ×2 (08:30→20:34)
[2018-04-13] MEDS: FUROSEMIDE 20 MG INJ IV (08:31)
[2018-04-13] MEDS: NICOTINE (14 MG/24 HR) PATCH TRANSDERM (08:34)
[2018-04-13] MEDS: NIFEdipine (XL) 60 MG TAB PO (08:35)
[2018-04-13] MEDS: ALLOPURINOL 100 MG TAB PO (08:35)
[2018-04-13] MEDS: SPIRONOLACTONE 25 MG TAB PO (08:35)
[2018-04-13] MEDS: COLLAGENASE 5 GM (UD JAR) TOP (08:35)
[2018-04-13] MEDS: FERROUS SULFATE (EC) 325 MG TAB PO ×2 (08:35→20:35)
[2018-04-13] MEDS: ISOSORBIDE DINITRATE 20 MG TAB PO ×3 (08:35→20:35)
[2018-04-13] MEDS: METOPROLOL (XL) 50 MG TAB PO ×2 (08:35→20:36)
[2018-04-13] MEDS: CITRIC ACID/SODIUM CITRATE 15 ML CUP PO ×2 (08:36→20:34)
[2018-04-13] MEDS: MEROPENEM 500MG/50 ML (PMX) 50 ML IVPB ×2 (08:42→20:34)
[2018-04-13 12:18] LABS: VANCOMYCIN,TROUGH 8.8 ug/ml (10.0-20.0)
[2018-04-13] MEDS: VANCOMYCIN 750 MG in SOD CHLORIDE 0.9% 150 ML IVPB (12:21)
[2018-04-13] MEDS ORDERED: BUMETANIDE 1 MG INJ IV (18:00)
[2018-04-13] MEDS: BUMETANIDE 2 MG in DEXTROSE 5% 17 ML IV (20:34)
[2018-04-13] MEDS: DOCUSATE SODIUM 100 MG CAP PO (20:35)
[2018-04-13] MEDS: SODIUM HYPOCHLORITE (1/40) 1 APPLIC BTL IRR (22:36)
[2018-04-14] MEDS: ACETYLCYSTEINE 20% 4 ML VIAL NEB ×3 (00:06→15:55)
[2018-04-14] MEDS: ALBUTEROL/IPRATROPIUM (NEB) 3 ML AMP HHN ×3 (00:06→15:54)
[2018-04-14] MEDS: HYDROmorphONE 2 MG/ML SYG IV ×6 (02:01→23:46)
[2018-04-14] MEDS: LORAZEPAM 2 MG INJ IV ×3 (02:58→16:29)
[2018-04-14] MEDS: LEVOTHYROXINE 100 MCG TAB PO (06:30)
[2018-04-14] MEDS: PANTOPRAZOLE 40 MG INJ IV (06:30)
[2018-04-14] MEDS: BUMETANIDE 2 MG in DEXTROSE 5% 17 ML IV ×2 (06:30→17:13)
[2018-04-14] MEDS: COLLAGENASE 5 GM (UD JAR) TOP (08:19)
[2018-04-14] MEDS: SODIUM HYPOCHLORITE (1/40) 1 APPLIC BTL IRR (08:19)
[2018-04-14] MEDS: MEROPENEM 500MG/50 ML (PMX) 50 ML IVPB ×2 (08:19→21:49)
[2018-04-14] MEDS: NICOTINE (14 MG/24 HR) PATCH TRANSDERM (08:20)
[2018-04-14] MEDS: SPIRONOLACTONE 25 MG TAB PO (08:21)
[2018-04-14] MEDS: CITRIC ACID/SODIUM CITRATE 15 ML CUP PO ×2 (08:21→22:13)
[2018-04-14] MEDS: LUBIPROSTONE 24 MCG CAP PO ×2 (08:21→22:14)
[2018-04-14] MEDS: ALLOPURINOL 100 MG TAB PO (08:22)
[2018-04-14] MEDS: NIFEdipine (XL) 60 MG TAB PO (08:22)
[2018-04-14] MEDS: FERROUS SULFATE (EC) 325 MG TAB PO ×2 (08:22→22:14)
[2018-04-14] MEDS: METOPROLOL (XL) 50 MG TAB PO ×2 (08:22→22:27)
[2018-04-14] MEDS: FUROSEMIDE 20 MG INJ IV (08:23)
[2018-04-14] MEDS: ISOSORBIDE DINITRATE 20 MG TAB PO ×3 (08:23→22:14)
[2018-04-14] MEDS: VANCOMYCIN 1 GM 250 ML IVPB (09:11)
[2018-04-14] MEDS: ZYVOX 600 MG TAB PO ×2 (12:51→22:13)
[2018-04-14 14:55] LABS: ABNORMAL IP MESSAGE 1; HEMATOCRIT 27.6 % (42.0-52.0); HEMOGLOBIN 8.3 g/dl (14.0-18.0); MEAN CORPUSCULAR HEMOGLOBIN 25.6 pg (29.0-33.0); MEAN CORPUSCULAR HGB CONC 30.1 g/dl (32.0-37.0); MEAN CORPUSCULAR VOLUME 85.2 fl (82.0-101.0); MEAN PLATELET VOLUME 12.8 fl (7.4-10.4); NUCLEATED RED BLOOD CELLS% 0.1 /100WBC (0.0-0.0); PLATELET COUNT 189 10^3/UL (140-415); POSITIVE DIFF @See below; RED BLOOD COUNT 3.24 10^6/ul (4.70-6.10); RED CELL DISTRIBUTION WIDTH 21.9 % (11.5-14.5)
[2018-04-14 15:12] LABS: ADD MAN DIFF? YES
[2018-04-14 15:15] LABS: ANION GAP 12 (8-16); BLOOD UREA NITROGEN 32 mg/dl (7-20); CALCIUM 8.1 mg/dl (8.4-10.2); CARBON DIOXIDE 29 mmol/L (21-31); CHLORIDE 102 mmol/L (97-110); CREATININE 1.63 mg/dl (0.61-1.24); GLUCOSE 118 mg/dl (70-220); POTASSIUM 4.6 mmol/L (3.5-5.1); SODIUM 138 mmol/L (135-144)
[2018-04-14 16:04] LABS: ANISOCYTOSIS 1+ (0-0); BAND NEUTROPHILS #M 0.1 10^3/ul (0.0-0.6); BAND NEUTROPHILS % (M) 1 % (0-4); BASOPHIL #M 0.1 10^3/ul (0.0-0.0); BASOPHILS % (M) 1 % (0-2); EOSINOPHILS % (M) 7 % (0-7); ERYTHROBLAST% (NRBC) (M) 1 % (0-0); GIANT THROMBO% (M) 7 % (0-0); LYMPHOCYTES #M 1.1 10^3/ul (0.8-2.9); LYMPHOCYTES % (M) 8 % (15-51); MICROCYTOSIS 1+ (0-0); MONOCYTE #M 1.9 10^3/ul (0.3-0.9); MONOCYTES % (M) 14 % (0-11); MYELOCYTES #M 0.2 10^3/ul (0.0-0.0); MYELOCYTES % (M) 2 % (0-0); PLATELET ESTIMATE NORMAL; POLYCHROMASIA 2+ (0-0); SEG NEUT #M 9.4 10^3/ul (1.6-7.5); SEGMENTED NEUTROPHILS (M) % 67 % (39-77); SMUDGE%M 53 % (0-0)
[2018-04-14] MEDS: DOCUSATE SODIUM 100 MG CAP PO (22:13)
[2018-04-14] MEDS: HYDROCODONE/APAP (10/325) TAB PO (22:13)
[2018-04-15] MEDS: ALBUTEROL/IPRATROPIUM (NEB) 3 ML AMP HHN ×3 (01:03→16:06)
[2018-04-15] MEDS: LORAZEPAM 2 MG INJ IV ×3 (03:02→20:19)
[2018-04-15] MEDS: HYDROmorphONE 2 MG/ML SYG IV ×5 (04:26→23:15)
[2018-04-15] MEDS: PANTOPRAZOLE 40 MG INJ IV (06:07)
[2018-04-15] MEDS: BUMETANIDE 2 MG in DEXTROSE 5% 17 ML IV ×2 (06:07→18:22)
[2018-04-15 06:35] LABS: ABNORMAL IP MESSAGE 1; HEMATOCRIT 27.7 % (42.0-52.0); HEMOGLOBIN 8.2 g/dl (14.0-18.0); MEAN CORPUSCULAR HEMOGLOBIN 25.3 pg (29.0-33.0); MEAN CORPUSCULAR HGB CONC 29.6 g/dl (32.0-37.0); MEAN CORPUSCULAR VOLUME 85.5 fl (82.0-101.0); MEAN PLATELET VOLUME 11.8 fl (7.4-10.4); NUCLEATED RED BLOOD CELLS% 0.2 /100WBC (0.0-0.0); PLATELET COUNT 173 10^3/UL (140-415); POSITIVE DIFF @See below; RED BLOOD COUNT 3.24 10^6/ul (4.70-6.10); RED CELL DISTRIBUTION WIDTH 21.8 % (11.5-14.5)
[2018-04-15 06:53] LABS: ADD MAN DIFF? YES
[2018-04-15 07:01] LABS: ALANINE AMINOTRANSFERASE 28 IU/L (13-69); ALKALINE PHOSPHATASE 151 IU/L (42-121); ANION GAP 15 (8-16); ASPARTATE AMINO TRANSFERASE 36 IU/L (15-46); BILIRUBIN,INDIRECT 0.2 mg/dl (0-1.1); BILIRUBIN,TOTAL 0.2 mg/dl (0.2-1.3); BLOOD UREA NITROGEN 34 mg/dl (7-20); CALCIUM 7.8 mg/dl (8.4-10.2); CARBON DIOXIDE 27 mmol/L (21-31); CHLORIDE 104 mmol/L (97-110); CREATININE 1.82 mg/dl (0.61-1.24); GLUCOSE 132 mg/dl (70-220); POTASSIUM 4.2 mmol/L (3.5-5.1); SODIUM 142 mmol/L (135-144); TOTAL PROTEIN 5.5 g/dl (6.1-8.1)
[2018-04-15] MEDS: ACETYLCYSTEINE 20% 4 ML VIAL NEB ×3 (07:34→16:06)
[2018-04-15 08:18] LABS: ANISOCYTOSIS 2+ (0-0); BAND NEUTROPHILS #M 0.4 10^3/ul (0.0-0.6); BAND NEUTROPHILS % (M) 4 % (0-4); BURR CELLS 1+ (0-0); EOSINOPHILS % (M) 12 % (0-7); GIANT THROMBO% (M) 4 % (0-0); HYPOCHROMASIA 1+ (0-0); LYMPHOCYTES #M 0.8 10^3/ul (0.8-2.9); LYMPHOCYTES % (M) 8 % (15-51); METAMYELOCYTES #M 0.1 10^3/ul (0.0-0.0); METAMYELOCYTES %M 1 % (0-0); MICROCYTOSIS 2+ (0-0); MONOCYTE #M 0.8 10^3/ul (0.3-0.9); MONOCYTES % (M) 8 % (0-11); MYELOCYTES #M 0.3 10^3/ul (0.0-0.0); MYELOCYTES % (M) 3 % (0-0); PLATELET ESTIMATE NORMAL; POIKILOCYTOSIS 2+ (0-0); POLYCHROMASIA 1+ (0-0); SCHISTOCYTES 1+ (0-0); SEG NEUT #M 7.1 10^3/ul (1.6-7.5); SEGMENTED NEUTROPHILS (M) % 64 % (39-77); SMUDGE%M 5 % (0-0)
[2018-04-15] MEDS: ALLOPURINOL 100 MG TAB PO (08:23)
[2018-04-15] MEDS: FERROUS SULFATE (EC) 325 MG TAB PO ×2 (08:23→20:18)
[2018-04-15] MEDS: ZYVOX 600 MG TAB PO ×2 (08:23→20:18)
[2018-04-15] MEDS: SPIRONOLACTONE 25 MG TAB PO (08:23)
[2018-04-15] MEDS: LUBIPROSTONE 24 MCG CAP PO ×2 (08:24→22:12)
[2018-04-15] MEDS: METOPROLOL (XL) 50 MG TAB PO ×2 (08:24→20:18)
[2018-04-15] MEDS: ISOSORBIDE DINITRATE 20 MG TAB PO ×3 (08:24→20:19)
[2018-04-15] MEDS: CITRIC ACID/SODIUM CITRATE 15 ML CUP PO ×2 (08:25→20:21)
[2018-04-15] MEDS: NICOTINE (14 MG/24 HR) PATCH TRANSDERM (08:25)
[2018-04-15] MEDS: NIFEdipine (XL) 60 MG TAB PO (08:25)
[2018-04-15] MEDS: FUROSEMIDE 20 MG INJ IV (08:26)
[2018-04-15] MEDS: SODIUM HYPOCHLORITE (1/40) 1 APPLIC BTL IRR (08:28)
[2018-04-15] MEDS: LEVOTHYROXINE 100 MCG TAB PO (08:39)
[2018-04-15] MEDS: MEROPENEM 500MG/50 ML (PMX) 50 ML IVPB ×2 (08:39→20:17)
[2018-04-15] MEDS: COLLAGENASE 5 GM (UD JAR) TOP (09:00)
[2018-04-15] MEDS: DOCUSATE SODIUM 100 MG CAP PO (20:19)
[2018-04-16] MEDS: ALBUTEROL/IPRATROPIUM (NEB) 3 ML AMP HHN ×4 (00:26→23:20)
[2018-04-16] MEDS: ACETYLCYSTEINE 20% 4 ML VIAL NEB ×4 (00:26→23:20)
[2018-04-16] MEDS: HYDROCODONE/APAP (10/325) TAB PO ×2 (00:54→13:01)
[2018-04-16] MEDS: HYDROmorphONE 2 MG/ML SYG IV ×4 (03:32→20:09)
[2018-04-16] MEDS: PANTOPRAZOLE 40 MG INJ IV (05:45)
[2018-04-16] MEDS: BUMETANIDE 2 MG in DEXTROSE 5% 17 ML IV (05:45)
[2018-04-16] MEDS: LORAZEPAM 2 MG INJ IV ×3 (05:45→21:13)
[2018-04-16] MEDS: LEVOTHYROXINE 100 MCG TAB PO (06:27)
[2018-04-16 06:55] LABS: ABNORMAL IP MESSAGE 1; HEMATOCRIT 25.4 % (42.0-52.0); HEMOGLOBIN 7.7 g/dl (14.0-18.0); MEAN CORPUSCULAR HEMOGLOBIN 25.3 pg (29.0-33.0); MEAN CORPUSCULAR HGB CONC 30.3 g/dl (32.0-37.0); MEAN CORPUSCULAR VOLUME 83.6 fl (82.0-101.0); MEAN PLATELET VOLUME 12.4 fl (7.4-10.4); PLATELET COUNT 185 10^3/UL (140-415); POSITIVE DIFF @See below; RED BLOOD COUNT 3.04 10^6/ul (4.70-6.10); RED CELL DISTRIBUTION WIDTH 21.9 % (11.5-14.5)
[2018-04-16 06:55] LABS: WHITE BLOOD COUNT 11.7 10^3/ul (4.8-10.8)
[2018-04-16 07:01] LABS: ADD MAN DIFF? YES
[2018-04-16 07:30] LABS: ANION GAP 14 (8-16); BLOOD UREA NITROGEN 38 mg/dl (7-20); CALCIUM 7.8 mg/dl (8.4-10.2); CARBON DIOXIDE 29 mmol/L (21-31); CHLORIDE 101 mmol/L (97-110); CREATININE 1.96 mg/dl (0.61-1.24); GLUCOSE 109 mg/dl (70-220); POTASSIUM 4.4 mmol/L (3.5-5.1); SODIUM 140 mmol/L (135-144)
[2018-04-16 08:00] LABS: ANISOCYTOSIS 1+ (0-0); BAND NEUTROPHILS #M 0.7 10^3/ul (0.0-0.6); BAND NEUTROPHILS % (M) 6 % (0-4); BASOPHIL #M 0.2 10^3/ul (0.0-0.0); BASOPHILS % (M) 2 % (0-2); EOSINOPHILS % (M) 4 % (0-7); GIANT THROMBO% (M) 1 % (0-0); HYPOCHROMASIA 1+ (0-0); LYMPHOCYTES #M 1.1 10^3/ul (0.8-2.9); LYMPHOCYTES % (M) 10 % (15-51); MICROCYTOSIS 1+ (0-0); MONOCYTE #M 1.4 10^3/ul (0.3-0.9); MONOCYTES % (M) 12 % (0-11); PLATELET ESTIMATE NORMAL; POIKILOCYTOSIS 1+ (0-0); POLYCHROMASIA 2+ (0-0); REACTIVE LYMPHOCYTES #M 0.2 10^3/ul (0.0-0.0); REACTIVE LYMPHOCYTES% (M) 2 % (0-0); SEG NEUT #M 7.6 10^3/ul (1.6-7.5); SEGMENTED NEUTROPHILS (M) % 64 % (39-77); SMUDGE%M 5 % (0-0)
[2018-04-16] MEDS: ALLOPURINOL 100 MG TAB PO (08:40)
[2018-04-16] MEDS: NIFEdipine (XL) 60 MG TAB PO (08:40)
[2018-04-16] MEDS: SPIRONOLACTONE 25 MG TAB PO (08:41)
[2018-04-16] MEDS: LUBIPROSTONE 24 MCG CAP PO ×2 (08:41→20:14)
[2018-04-16] MEDS: FERROUS SULFATE (EC) 325 MG TAB PO ×2 (08:41→20:14)
[2018-04-16] MEDS: ISOSORBIDE DINITRATE 20 MG TAB PO ×3 (08:41→20:13)
[2018-04-16] MEDS: ZYVOX 600 MG TAB PO (08:41)
[2018-04-16] MEDS: FUROSEMIDE 20 MG INJ IV (08:42)
[2018-04-16] MEDS: METOPROLOL (XL) 50 MG TAB PO ×2 (08:42→20:15)
[2018-04-16] MEDS: NICOTINE (14 MG/24 HR) PATCH TRANSDERM (08:45)
[2018-04-16] MEDS: SODIUM HYPOCHLORITE (1/40) 1 APPLIC BTL IRR (08:46)
[2018-04-16] MEDS: CITRIC ACID/SODIUM CITRATE 15 ML CUP PO ×2 (08:50→20:15)
[2018-04-16] MEDS: COLLAGENASE 5 GM (UD JAR) TOP (09:00)
[2018-04-16] MEDS: MEROPENEM 500MG/50 ML (PMX) 50 ML IVPB (09:03)
[2018-04-16] MEDS: BUMETANIDE 25 MG in DEXTROSE 5% 150 ML IV (13:28)
[2018-04-16] MEDS: ERTAPENEM SODIUM 1 GM in SOD CHLORIDE 0.9% 100 ML IVPB (16:50)
[2018-04-16] MEDS: SOD CHLORIDE 0.9% IVPB (18:32)
[2018-04-16] MEDS: DAPTOMYCIN IVPB (18:32)
[2018-04-16] MEDS: DOCUSATE SODIUM 100 MG CAP PO (20:14)
[2018-04-17] MEDS: HYDROmorphONE 2 MG/ML SYG IV ×6 (00:23→22:22)
[2018-04-17] MEDS: HYDROCODONE/APAP (10/325) TAB PO ×2 (03:08→20:32)
[2018-04-17] MEDS: PANTOPRAZOLE 40 MG INJ IV (05:26)
[2018-04-17] MEDS: LORAZEPAM 2 MG INJ IV ×3 (05:26→19:02)
[2018-04-17 06:18] LABS: WHITE BLOOD COUNT 13.2 10^3/ul (4.8-10.8)
[2018-04-17 06:18] LABS: ABNORMAL IP MESSAGE 1; HEMATOCRIT 28.7 % (42.0-52.0); HEMOGLOBIN 8.8 g/dl (14.0-18.0); MEAN CORPUSCULAR HEMOGLOBIN 25.4 pg (29.0-33.0); MEAN CORPUSCULAR HGB CONC 30.7 g/dl (32.0-37.0); MEAN CORPUSCULAR VOLUME 82.9 fl (82.0-101.0); MEAN PLATELET VOLUME 13.1 fl (7.4-10.4); NUCLEATED RED BLOOD CELLS% 0.2 /100WBC (0.0-0.0); PLATELET COUNT 287 10^3/UL (140-415); POSITIVE DIFF @See below; RED BLOOD COUNT 3.46 10^6/ul (4.70-6.10)
[2018-04-17 06:27] LABS: ADD MAN DIFF? YES
[2018-04-17] MEDS: LEVOTHYROXINE 100 MCG TAB PO (06:40)
[2018-04-17 06:42] LABS: CREATINE KINASE < 20 IU/L (23-200)
[2018-04-17 06:58] LABS: ANION GAP 15 (8-16); BLOOD UREA NITROGEN 40 mg/dl (7-20); CALCIUM 8.3 mg/dl (8.4-10.2); CARBON DIOXIDE 28 mmol/L (21-31); CHLORIDE 98 mmol/L (97-110); CREATININE 1.86 mg/dl (0.61-1.24); GLUCOSE 89 mg/dl (70-220); POTASSIUM 4.2 mmol/L (3.5-5.1); SODIUM 137 mmol/L (135-144)
[2018-04-17] MEDS: SODIUM HYPOCHLORITE (1/40) 1 APPLIC BTL IRR (09:19)
[2018-04-17] MEDS: CITRIC ACID/SODIUM CITRATE 15 ML CUP PO ×2 (09:23→20:26)
[2018-04-17] MEDS: NICOTINE (14 MG/24 HR) PATCH TRANSDERM (09:23)
[2018-04-17] MEDS: FERROUS SULFATE (EC) 325 MG TAB PO ×2 (09:24→20:26)
[2018-04-17] MEDS: LUBIPROSTONE 24 MCG CAP PO ×2 (09:24→20:26)
[2018-04-17] MEDS: SPIRONOLACTONE 25 MG TAB PO (09:25)
[2018-04-17] MEDS: ALLOPURINOL 100 MG TAB PO (09:25)
[2018-04-17] MEDS: NIFEdipine (XL) 60 MG TAB PO (09:25)
[2018-04-17] MEDS: ISOSORBIDE DINITRATE 20 MG TAB PO ×3 (09:25→20:26)
[2018-04-17] MEDS: METOPROLOL (XL) 50 MG TAB PO ×2 (09:26→20:27)
[2018-04-17] MEDS: COLLAGENASE 5 GM (UD JAR) TOP (09:26)
[2018-04-17 09:30] LABS: ANISOCYTOSIS 1+ (0-0); BAND NEUTROPHILS #M 0.1 10^3/ul (0.0-0.6); BAND NEUTROPHILS % (M) 1 % (0-4); EOSINOPHILS % (M) 4 % (0-7); HYPOCHROMASIA 1+ (0-0); LYMPHOCYTES #M 1.8 10^3/ul (0.8-2.9); LYMPHOCYTES % (M) 14 % (15-51); METAMYELOCYTES #M 0.1 10^3/ul (0.0-0.0); METAMYELOCYTES %M 1 % (0-0); MICROCYTOSIS 1+ (0-0); MONOCYTE #M 1.1 10^3/ul (0.3-0.9); MONOCYTES % (M) 9 % (0-11); MYELOCYTES #M 0.5 10^3/ul (0.0-0.0); MYELOCYTES % (M) 4 % (0-0); PLATELET ESTIMATE NORMAL; POLYCHROMASIA 1+ (0-0); SEG NEUT #M 8.9 10^3/ul (1.6-7.5); SEGMENTED NEUTROPHILS (M) % 67 % (39-77); SMUDGE%M 6 % (0-0)
[2018-04-17] MEDS: ALBUTEROL/IPRATROPIUM (NEB) 3 ML AMP HHN ×2 (09:31→16:00)
[2018-04-17] MEDS: ACETYLCYSTEINE 20% 4 ML VIAL NEB ×2 (09:31→16:00)
[2018-04-17] MEDS: BUMETANIDE 25 MG in DEXTROSE 5% 150 ML IV (11:34)
[2018-04-17] MEDS: ERTAPENEM SODIUM 1 GM in SOD CHLORIDE 0.9% 100 ML IVPB (13:49)
[2018-04-17] MEDS: SOD CHLORIDE 0.9% IVPB (15:29)
[2018-04-17] MEDS: DAPTOMYCIN IVPB (15:29)
[2018-04-17] MEDS: DOCUSATE SODIUM 100 MG CAP PO (20:26)
[2018-04-18] MEDS: ACETYLCYSTEINE 20% 4 ML VIAL NEB ×4 (00:02→23:30)
[2018-04-18] MEDS: ALBUTEROL/IPRATROPIUM (NEB) 3 ML AMP HHN ×4 (00:02→23:30)
[2018-04-18] MEDS: LORAZEPAM 2 MG INJ IV ×4 (01:06→21:52)
[2018-04-18] MEDS: HYDROmorphONE 2 MG/ML SYG IV ×5 (02:45→20:51)
[2018-04-18] MEDS: LEVOTHYROXINE 100 MCG TAB PO (06:52)
[2018-04-18] MEDS: PANTOPRAZOLE 40 MG INJ IV (06:52)
[2018-04-18 07:04] LABS: ABNORMAL IP MESSAGE 1; MEAN CORPUSCULAR HEMOGLOBIN 24.9 pg (29.0-33.0); MEAN CORPUSCULAR VOLUME 83.1 fl (82.0-101.0); MEAN PLATELET VOLUME 12.2 fl (7.4-10.4); PLATELET COUNT 290 10^3/UL (140-415); POSITIVE DIFF @See below; RED BLOOD COUNT 3.61 10^6/ul (4.70-6.10); RED CELL DISTRIBUTION WIDTH 21.8 % (11.5-14.5)
[2018-04-18 07:04] LABS: WHITE BLOOD COUNT 10.4 10^3/ul (4.8-10.8)
[2018-04-18 07:27] LABS: ANION GAP 13 (8-16); BLOOD UREA NITROGEN 42 mg/dl (7-20); CALCIUM 7.9 mg/dl (8.4-10.2); CARBON DIOXIDE 32 mmol/L (21-31); CHLORIDE 96 mmol/L (97-110); GLUCOSE 121 mg/dl (70-220); POTASSIUM 4.3 mmol/L (3.5-5.1); SODIUM 137 mmol/L (135-144)
[2018-04-18 07:33] LABS: ADD MAN DIFF? YES
[2018-04-18] MEDS: CITRIC ACID/SODIUM CITRATE 15 ML CUP PO ×2 (09:00→21:00)
[2018-04-18] MEDS: NICOTINE (14 MG/24 HR) PATCH TRANSDERM (09:00)
[2018-04-18] MEDS: SODIUM HYPOCHLORITE (1/40) 1 APPLIC BTL IRR (09:00)
[2018-04-18] MEDS: COLLAGENASE 5 GM (UD JAR) TOP (09:00)
[2018-04-18] MEDS: ISOSORBIDE DINITRATE 20 MG TAB PO ×3 (09:01→20:50)
[2018-04-18] MEDS: LUBIPROSTONE 24 MCG CAP PO ×2 (09:01→20:50)
[2018-04-18] MEDS: NIFEdipine (XL) 60 MG TAB PO (09:01)
[2018-04-18] MEDS: FERROUS SULFATE (EC) 325 MG TAB PO ×2 (09:01→20:49)
[2018-04-18] MEDS: SPIRONOLACTONE 25 MG TAB PO (09:01)
[2018-04-18] MEDS: ALLOPURINOL 100 MG TAB PO (09:01)
[2018-04-18] MEDS: LACTOBACILLUS RHAMNOSUS CAP PO (09:01)
[2018-04-18] MEDS: METOPROLOL (XL) 50 MG TAB PO ×2 (09:02→20:49)
[2018-04-18 09:15] LABS: ANISOCYTOSIS 1+ (0-0); BAND NEUTROPHILS #M 0.7 10^3/ul (0.0-0.6); BAND NEUTROPHILS % (M) 7 % (0-4); BASOPHIL #M 0.4 10^3/ul (0.0-0.0); BASOPHILS % (M) 4 % (0-2); EOSINOPHILS % (M) 2 % (0-7); ERYTHROBLAST% (NRBC) (M) 1 % (0-0); GIANT THROMBO% (M) 1 % (0-0); LYMPHOCYTES #M 0.8 10^3/ul (0.8-2.9); LYMPHOCYTES % (M) 8 % (15-51); MICROCYTOSIS 1+ (0-0); MONOCYTE #M 1.1 10^3/ul (0.3-0.9); MONOCYTES % (M) 11 % (0-11); MYELOCYTES #M 0.3 10^3/ul (0.0-0.0); MYELOCYTES % (M) 3 % (0-0); PLATELET ESTIMATE NORMAL; POIKILOCYTOSIS 1+ (0-0); POLYCHROMASIA 3+ (0-0); REACTIVE LYMPHOCYTES #M 0.3 10^3/ul (0.0-0.0); REACTIVE LYMPHOCYTES% (M) 3 % (0-0); SEG NEUT #M 6.5 10^3/ul (1.6-7.5); SEGMENTED NEUTROPHILS (M) % 62 % (39-77); SMUDGE%M 60 % (0-0)
[2018-04-18] MEDS ORDERED: BUMETANIDE 1 MG INJ IV (10:30)
[2018-04-18] MEDS: LIDOCAINE 1% (MPF) 5 ML VIAL SC (11:15)
[2018-04-18] MEDS: HYDROCODONE/APAP (10/325) TAB PO ×2 (12:37→23:41)
[2018-04-18] MEDS: BUMETANIDE 2 MG in DEXTROSE 5% 17 ML IV ×2 (12:37→21:43)
[2018-04-18] MEDS: ERTAPENEM SODIUM 1 GM in SOD CHLORIDE 0.9% 100 ML IVPB (14:06)
[2018-04-18] MEDS: DAPTOMYCIN IVPB (15:09)
[2018-04-18] MEDS: SOD CHLORIDE 0.9% IVPB (15:09)
[2018-04-18] MEDS: DOCUSATE SODIUM 100 MG CAP PO (20:49)
[2018-04-18] MEDS: IOHEXOL 14.3 MG(I)/ML (ADULT) BTL PO (21:43)
[2018-04-19] MEDS: HYDROmorphONE 2 MG/ML SYG IV ×5 (01:17→18:37)
[2018-04-19] MEDS: PANTOPRAZOLE 40 MG INJ IV (05:44)
[2018-04-19] MEDS: LEVOTHYROXINE 100 MCG TAB PO (05:46)
[2018-04-19] MEDS: BUMETANIDE 2 MG in DEXTROSE 5% 17 ML IV ×2 (05:48→17:15)
[2018-04-19 07:42] LABS: ABNORMAL IP MESSAGE 1; HEMATOCRIT 28.7 % (42.0-52.0); HEMOGLOBIN 8.7 g/dl (14.0-18.0); MEAN CORPUSCULAR HEMOGLOBIN 24.9 pg (29.0-33.0); MEAN CORPUSCULAR HGB CONC 30.3 g/dl (32.0-37.0); MEAN PLATELET VOLUME 12.8 fl (7.4-10.4); PLATELET COUNT 329 10^3/UL (140-415); POSITIVE DIFF @See below; RED CELL DISTRIBUTION WIDTH 22.3 % (11.5-14.5)
[2018-04-19 07:42] LABS: WHITE BLOOD COUNT 13.3 10^3/ul (4.8-10.8)
[2018-04-19] MEDS: ALBUTEROL/IPRATROPIUM (NEB) 3 ML AMP HHN ×2 (07:52→15:42)
[2018-04-19] MEDS: ACETYLCYSTEINE 20% 4 ML VIAL NEB ×2 (07:52→15:42)
[2018-04-19 07:56] LABS: ADD MAN DIFF? YES
[2018-04-19 08:06] LABS: ANION GAP 11 (8-16); BLOOD UREA NITROGEN 43 mg/dl (7-20); CALCIUM 8.1 mg/dl (8.4-10.2); CARBON DIOXIDE 32 mmol/L (21-31); CHLORIDE 96 mmol/L (97-110); CREATININE 2.07 mg/dl (0.61-1.24); GLUCOSE 91 mg/dl (70-220); POTASSIUM 4.4 mmol/L (3.5-5.1); SODIUM 135 mmol/L (135-144)
[2018-04-19] MEDS: COLLAGENASE 5 GM (UD JAR) TOP (09:00)
[2018-04-19] MEDS: SODIUM HYPOCHLORITE (1/40) 1 APPLIC BTL IRR ×2 (09:00→14:12)
[2018-04-19 09:23] LABS: ANISOCYTOSIS 2+ (0-0); BAND NEUTROPHILS #M 0.6 10^3/ul (0.0-0.6); BAND NEUTROPHILS % (M) 5 % (0-4); BASOPHIL #M 0.2 10^3/ul (0.0-0.0); BASOPHILS % (M) 2 % (0-2); BURR CELLS 1+ (0-0); EOSINOPHILS % (M) 7 % (0-7); GIANT THROMBO% (M) 6 % (0-0); HYPOCHROMASIA 2+ (0-0); LYMPHOCYTES % (M) 8 % (15-51); METAMYELOCYTES #M 0.3 10^3/ul (0.0-0.0); METAMYELOCYTES %M 3 % (0-0); MICROCYTOSIS 2+ (0-0); MONOCYTE #M 0.2 10^3/ul (0.3-0.9); MONOCYTES % (M) 2 % (0-11); MYELOCYTES #M 1.1 10^3/ul (0.0-0.0); MYELOCYTES % (M) 9 % (0-0); PLATELET ESTIMATE NORMAL; POIKILOCYTOSIS 2+ (0-0); POLYCHROMASIA 3+ (0-0); REACTIVE LYMPHOCYTES #M 0.1 10^3/ul (0.0-0.0); REACTIVE LYMPHOCYTES% (M) 1 % (0-0); SEG NEUT #M 8.5 10^3/ul (1.6-7.5); SEGMENTED NEUTROPHILS (M) % 63 % (39-77)
[2018-04-19] MEDS: NICOTINE (14 MG/24 HR) PATCH TRANSDERM (09:43)
[2018-04-19] MEDS: LUBIPROSTONE 24 MCG CAP PO ×2 (09:43→20:54)
[2018-04-19] MEDS: ISOSORBIDE DINITRATE 20 MG TAB PO ×3 (09:44→20:53)
[2018-04-19] MEDS: SPIRONOLACTONE 25 MG TAB PO (09:44)
[2018-04-19] MEDS: FERROUS SULFATE (EC) 325 MG TAB PO ×2 (09:44→20:55)
[2018-04-19] MEDS: ALLOPURINOL 100 MG TAB PO (09:44)
[2018-04-19] MEDS: NIFEdipine (XL) 60 MG TAB PO (09:44)
[2018-04-19] MEDS: LACTOBACILLUS RHAMNOSUS CAP PO (09:44)
[2018-04-19] MEDS: METOPROLOL (XL) 50 MG TAB PO ×2 (09:45→20:54)
[2018-04-19] MEDS: CITRIC ACID/SODIUM CITRATE 15 ML CUP PO ×2 (09:50→20:54)
[2018-04-19] MEDS: ERTAPENEM SODIUM 1 GM in SOD CHLORIDE 0.9% 100 ML IVPB (13:40)
[2018-04-19] MEDS: LORAZEPAM 2 MG INJ IV ×2 (14:22→20:55)
[2018-04-19] MEDS: SOD CHLORIDE 0.9% IVPB (15:35)
[2018-04-19] MEDS: DAPTOMYCIN IVPB (15:35)
[2018-04-19] MEDS: HYDROCODONE/APAP (10/325) TAB PO (17:15)
[2018-04-19] MEDS: DOCUSATE SODIUM 100 MG CAP PO (20:53)
[2018-04-20] MEDS: HYDROmorphONE 2 MG/ML SYG IV ×6 (00:16→23:06)
[2018-04-20] MEDS: ALBUTEROL/IPRATROPIUM (NEB) 3 ML AMP HHN ×3 (00:30→15:10)
[2018-04-20] MEDS: ACETYLCYSTEINE 20% 4 ML VIAL NEB ×3 (00:30→15:22)
[2018-04-20] MEDS: HYDROCODONE/APAP (10/325) TAB PO ×2 (01:36→21:05)
[2018-04-20] MEDS: BUMETANIDE 2 MG in DEXTROSE 5% 17 ML IV ×2 (05:12→17:54)
[2018-04-20] MEDS: PANTOPRAZOLE 40 MG INJ IV (05:12)
[2018-04-20] MEDS: LORAZEPAM 2 MG INJ IV ×3 (05:12→21:06)
[2018-04-20] MEDS: LEVOTHYROXINE 100 MCG TAB PO (06:06)
[2018-04-20 06:28] LABS: ABNORMAL IP MESSAGE 1; HEMATOCRIT 27.5 % (42.0-52.0); HEMOGLOBIN 8.4 g/dl (14.0-18.0); MEAN CORPUSCULAR HEMOGLOBIN 25.1 pg (29.0-33.0); MEAN CORPUSCULAR HGB CONC 30.5 g/dl (32.0-37.0); MEAN CORPUSCULAR VOLUME 82.1 fl (82.0-101.0); MEAN PLATELET VOLUME 12.6 fl (7.4-10.4); NUCLEATED RED BLOOD CELLS% 0.2 /100WBC (0.0-0.0); PLATELET COUNT 297 10^3/UL (140-415); POSITIVE DIFF @See below; RED BLOOD COUNT 3.35 10^6/ul (4.70-6.10); RED CELL DISTRIBUTION WIDTH 22.3 % (11.5-14.5)
[2018-04-20 06:28] LABS: WHITE BLOOD COUNT 12.5 10^3/ul (4.8-10.8)
[2018-04-20 07:01] LABS: ANION GAP 16 (8-16); BLOOD UREA NITROGEN 44 mg/dl (7-20); CALCIUM 8.1 mg/dl (8.4-10.2); CARBON DIOXIDE 30 mmol/L (21-31); CHLORIDE 95 mmol/L (97-110); CREATININE 1.98 mg/dl (0.61-1.24); GLUCOSE 96 mg/dl (70-220); POTASSIUM 4.1 mmol/L (3.5-5.1); SODIUM 137 mmol/L (135-144)
[2018-04-20 07:23] LABS: ADD MAN DIFF? YES
[2018-04-20] MEDS: COLLAGENASE 5 GM (UD JAR) TOP (08:12)
[2018-04-20 08:52] LABS: ANISOCYTOSIS 1+ (0-0); BAND NEUTROPHILS #M 0.1 10^3/ul (0.0-0.6); BAND NEUTROPHILS % (M) 1 % (0-4); EOSINOPHILS % (M) 2 % (0-7); GIANT THROMBO% (M) 1 % (0-0); LYMPHOCYTES #M 1.1 10^3/ul (0.8-2.9); LYMPHOCYTES % (M) 9 % (15-51); MICROCYTOSIS 1+ (0-0); MONOCYTE #M 1.1 10^3/ul (0.3-0.9); MONOCYTES % (M) 9 % (0-11); MYELOCYTES #M 0.5 10^3/ul (0.0-0.0); MYELOCYTES % (M) 4 % (0-0); PLATELET ESTIMATE NORMAL; POLYCHROMASIA 3+ (0-0); REACTIVE LYMPHOCYTES #M 0.1 10^3/ul (0.0-0.0); REACTIVE LYMPHOCYTES% (M) 1 % (0-0); SEG NEUT #M 9.3 10^3/ul (1.6-7.5); SEGMENTED NEUTROPHILS (M) % 74 % (39-77); SMUDGE%M 3 % (0-0)
[2018-04-20] MEDS: SODIUM HYPOCHLORITE (1/40) 1 APPLIC BTL IRR (09:00)
[2018-04-20] MEDS: NIFEdipine (XL) 60 MG TAB PO (09:03)
[2018-04-20] MEDS: FERROUS SULFATE (EC) 325 MG TAB PO ×2 (09:03→21:03)
[2018-04-20] MEDS: ALLOPURINOL 100 MG TAB PO (09:04)
[2018-04-20] MEDS: METOPROLOL (XL) 50 MG TAB PO ×2 (09:04→21:03)
[2018-04-20] MEDS: ISOSORBIDE DINITRATE 20 MG TAB PO ×3 (09:04→21:04)
[2018-04-20] MEDS: SPIRONOLACTONE 25 MG TAB PO (09:04)
[2018-04-20] MEDS: NICOTINE (14 MG/24 HR) PATCH TRANSDERM (09:05)
[2018-04-20] MEDS: LACTOBACILLUS RHAMNOSUS CAP PO (09:05)
[2018-04-20] MEDS: LUBIPROSTONE 24 MCG CAP PO ×2 (09:05→21:02)
[2018-04-20] MEDS: CITRIC ACID/SODIUM CITRATE 15 ML CUP PO ×2 (09:06→21:02)
[2018-04-20] MEDS: ERTAPENEM SODIUM 1 GM in SOD CHLORIDE 0.9% 100 ML IVPB (14:02)
[2018-04-20] MEDS: SOD CHLORIDE 0.9% IVPB (14:51)
[2018-04-20] MEDS: DAPTOMYCIN IVPB (14:51)
[2018-04-20] MEDS: DOCUSATE SODIUM 100 MG CAP PO (21:02)
[2018-04-21] MEDS: ACETYLCYSTEINE 20% 4 ML VIAL NEB ×4 (00:39→23:28)
[2018-04-21] MEDS: ALBUTEROL/IPRATROPIUM (NEB) 3 ML AMP HHN ×4 (00:39→23:27)
[2018-04-21] MEDS: HYDROmorphONE 2 MG/ML SYG IV ×5 (04:30→21:13)
[2018-04-21] MEDS: PANTOPRAZOLE 40 MG INJ IV (05:48)
[2018-04-21] MEDS: LORAZEPAM 2 MG INJ IV ×3 (05:48→22:13)
[2018-04-21] MEDS: BUMETANIDE 2 MG in DEXTROSE 5% 17 ML IV (05:48)
[2018-04-21] MEDS: LEVOTHYROXINE 100 MCG TAB PO (05:55)
[2018-04-21] MEDS: NIFEdipine (XL) 60 MG TAB PO (08:47)
[2018-04-21] MEDS: CITRIC ACID/SODIUM CITRATE 15 ML CUP PO ×2 (08:47→20:25)
[2018-04-21] MEDS: COLLAGENASE 5 GM (UD JAR) TOP (08:47)
[2018-04-21] MEDS: ALLOPURINOL 100 MG TAB PO (08:48)
[2018-04-21] MEDS: FERROUS SULFATE (EC) 325 MG TAB PO ×2 (08:48→20:25)
[2018-04-21] MEDS: LUBIPROSTONE 24 MCG CAP PO ×2 (08:48→20:28)
[2018-04-21] MEDS: SPIRONOLACTONE 25 MG TAB PO (08:48)
[2018-04-21] MEDS: LACTOBACILLUS RHAMNOSUS CAP PO (08:48)
[2018-04-21] MEDS: ISOSORBIDE DINITRATE 20 MG TAB PO ×3 (08:49→20:27)
[2018-04-21] MEDS: METOPROLOL (XL) 50 MG TAB PO ×2 (08:49→20:28)
[2018-04-21] MEDS: NICOTINE (14 MG/24 HR) PATCH TRANSDERM (08:50)
[2018-04-21] MEDS: SODIUM HYPOCHLORITE (1/40) 1 APPLIC BTL IRR (09:00)
[2018-04-21] MEDS: ERTAPENEM SODIUM 1 GM in SOD CHLORIDE 0.9% 100 ML IVPB (13:08)
[2018-04-21 13:40] LABS: ADD UMIC NO; UR ASCORBIC ACID NEGATIVE (NEGATIVE); UR BILIRUBIN (Dip) NEGATIVE (NEGATIVE); UR BLOOD (Dip) NEGATIVE (NEGATIVE); UR CLARITY CLEAR (CLEAR); UR COLOR YELLOW (YELLOW); UR GLUCOSE (Dip) NEGATIVE (NEGATIVE); UR KETONES (Dip) NEGATIVE (NEGATIVE); UR LEUKOCYTE ESTERASE (Dip) NEGATIVE Leu/ul (NEGATIVE); UR NITRITE (Dip) NEGATIVE (NEGATIVE); UR TOTAL PROTEIN (Dip) NEGATIVE (NEGATIVE); UR UROBILINOGEN (Dip) NEGATIVE (NEGATIVE)
[2018-04-21] MEDS: SOD CHLORIDE 0.9% IVPB (16:21)
[2018-04-21] MEDS: DAPTOMYCIN IVPB (16:21)
[2018-04-21] MEDS: BUMETANIDE 1 MG INJ IV (16:56)
[2018-04-21] MEDS ORDERED: BUMETANIDE IV (18:00)
[2018-04-21] MEDS ORDERED: DEXTROSE 5% IV (18:00)
[2018-04-21] MEDS: HYDROCODONE/APAP (10/325) TAB PO (18:06)
[2018-04-21] MEDS: DOCUSATE SODIUM 100 MG CAP PO (20:27)
[2018-04-22] MEDS: HYDROmorphONE 2 MG/ML SYG IV ×5 (01:24→18:19)
[2018-04-22] MEDS: PANTOPRAZOLE (EC) 40 MG TAB PO (05:38)
[2018-04-22] MEDS: BUMETANIDE 1 MG INJ IV ×2 (05:39→18:12)
[2018-04-22] MEDS: LEVOTHYROXINE 100 MCG TAB PO (05:39)
[2018-04-22] MEDS: LORAZEPAM 2 MG INJ IV ×2 (06:50→15:56)
[2018-04-22] MEDS: ACETYLCYSTEINE 20% 4 ML VIAL NEB ×3 (08:00→23:54)
[2018-04-22] MEDS: ALBUTEROL/IPRATROPIUM (NEB) 3 ML AMP HHN ×3 (08:00→23:53)
[2018-04-22] MEDS: COLLAGENASE 5 GM (UD JAR) TOP (09:00)
[2018-04-22] MEDS: SODIUM HYPOCHLORITE (1/40) 1 APPLIC BTL IRR (09:00)
[2018-04-22] MEDS: ALLOPURINOL 100 MG TAB PO (09:53)
[2018-04-22] MEDS: LACTOBACILLUS RHAMNOSUS CAP PO (09:53)
[2018-04-22] MEDS: FERROUS SULFATE (EC) 325 MG TAB PO ×2 (09:54→20:25)
[2018-04-22] MEDS: NIFEdipine (XL) 60 MG TAB PO (09:54)
[2018-04-22] MEDS: SPIRONOLACTONE 25 MG TAB PO (09:54)
[2018-04-22] MEDS: ISOSORBIDE DINITRATE 20 MG TAB PO ×3 (09:54→20:26)
[2018-04-22] MEDS: NICOTINE (14 MG/24 HR) PATCH TRANSDERM (09:55)
[2018-04-22] MEDS: METOPROLOL (XL) 50 MG TAB PO ×2 (09:55→20:27)
[2018-04-22] MEDS: LUBIPROSTONE 24 MCG CAP PO ×2 (10:10→20:24)
[2018-04-22] MEDS: HYDROCODONE/APAP (10/325) TAB PO ×2 (11:48→20:24)
[2018-04-22] MEDS: ERTAPENEM SODIUM 1 GM in SOD CHLORIDE 0.9% 100 ML IVPB (13:45)
[2018-04-22] MEDS: DAPTOMYCIN IVPB (15:55)
[2018-04-22] MEDS: SOD CHLORIDE 0.9% IVPB (15:55)
[2018-04-22] MEDS: CITRIC ACID/NA CITRATE 30 ML CUP PO (20:24)
[2018-04-22] MEDS: DOCUSATE SODIUM 100 MG CAP PO (20:25)
[2018-04-23] MEDS: LORAZEPAM 2 MG INJ IV ×3 (01:06→17:17)
[2018-04-23] MEDS: HYDROmorphONE 2 MG/ML SYG IV ×5 (04:40→20:23)
[2018-04-23] MEDS: PANTOPRAZOLE (EC) 40 MG TAB PO (05:56)
[2018-04-23] MEDS: LEVOTHYROXINE 100 MCG TAB PO (05:56)
[2018-04-23] MEDS: BUMETANIDE 1 MG INJ IV (05:56)
[2018-04-23] MEDS: HYDROCODONE/APAP (10/325) TAB PO ×2 (05:57→17:09)
[2018-04-23 07:11] LABS: WHITE BLOOD COUNT 12.8 10^3/ul (4.8-10.8)
[2018-04-23 07:11] LABS: ABNORMAL IP MESSAGE 1; HEMATOCRIT 27.6 % (42.0-52.0); HEMOGLOBIN 8.4 g/dl (14.0-18.0); MEAN CORPUSCULAR HEMOGLOBIN 24.7 pg (29.0-33.0); MEAN CORPUSCULAR HGB CONC 30.4 g/dl (32.0-37.0); MEAN CORPUSCULAR VOLUME 81.2 fl (82.0-101.0); MEAN PLATELET VOLUME 12.7 fl (7.4-10.4); NUCLEATED RED BLOOD CELLS% 0.2 /100WBC (0.0-0.0); PLATELET COUNT 275 10^3/UL (140-415); POSITIVE DIFF @See below; RED CELL DISTRIBUTION WIDTH 22.4 % (11.5-14.5)
[2018-04-23 07:25] LABS: ADD MAN DIFF? YES
[2018-04-23] MEDS: ACETYLCYSTEINE 20% 4 ML VIAL NEB ×2 (07:26→15:37)
[2018-04-23] MEDS: ALBUTEROL/IPRATROPIUM (NEB) 3 ML AMP HHN ×2 (07:26→15:37)
[2018-04-23 07:44] LABS: ANION GAP 14 (8-16); BLOOD UREA NITROGEN 39 mg/dl (7-20); CALCIUM 8.8 mg/dl (8.4-10.2); CARBON DIOXIDE 29 mmol/L (21-31); CHLORIDE 100 mmol/L (97-110); CREATININE 1.92 mg/dl (0.61-1.24); GLUCOSE 82 mg/dl (70-220); POTASSIUM 4.3 mmol/L (3.5-5.1); SODIUM 139 mmol/L (135-144)
[2018-04-23 07:45] LABS: PHOSPHORUS 4.5 mg/dl (2.5-4.9)
[2018-04-23 07:57] LABS: MAGNESIUM 1.5 mg/dl (1.7-2.5)
[2018-04-23 08:32] LABS: ANISOCYTOSIS 1+ (0-0); BAND NEUTROPHILS #M 0.6 10^3/ul (0.0-0.6); BAND NEUTROPHILS % (M) 5 % (0-4); BASOPHIL #M 0.1 10^3/ul (0.0-0.0); BASOPHILS % (M) 1 % (0-2); EOSINOPHILS % (M) 3 % (0-7); HYPOCHROMASIA 1+ (0-0); LYMPHOCYTES #M 0.7 10^3/ul (0.8-2.9); LYMPHOCYTES % (M) 6 % (15-51); METAMYELOCYTES #M 0.2 10^3/ul (0.0-0.0); METAMYELOCYTES %M 2 % (0-0); MICROCYTOSIS 1+ (0-0); MONOCYTE #M 1.2 10^3/ul (0.3-0.9); MONOCYTES % (M) 10 % (0-11); PLATELET ESTIMATE NORMAL; POLYCHROMASIA 2+ (0-0); SEG NEUT #M 9.4 10^3/ul (1.6-7.5); SEGMENTED NEUTROPHILS (M) % 73 % (39-77); SMUDGE%M 6 % (0-0); SPHEROCYTES 1+ (0-0); TARGET CELLS 1+ (0-0)
[2018-04-23] MEDS: LUBIPROSTONE 24 MCG CAP PO ×2 (09:00→20:21)
[2018-04-23] MEDS: CITRIC ACID/NA CITRATE 30 ML CUP PO ×2 (09:23→20:22)
[2018-04-23] MEDS: NICOTINE (14 MG/24 HR) PATCH TRANSDERM (09:24)
[2018-04-23] MEDS: NIFEdipine (XL) 60 MG TAB PO (09:25)
[2018-04-23] MEDS: METOPROLOL (XL) 50 MG TAB PO ×2 (09:25→20:22)
[2018-04-23] MEDS: SPIRONOLACTONE 25 MG TAB PO (09:25)
[2018-04-23] MEDS: LACTOBACILLUS RHAMNOSUS CAP PO (09:26)
[2018-04-23] MEDS: ALLOPURINOL 100 MG TAB PO (09:26)
[2018-04-23] MEDS: FERROUS SULFATE (EC) 325 MG TAB PO ×2 (09:26→20:22)
[2018-04-23] MEDS: ISOSORBIDE DINITRATE 20 MG TAB PO ×3 (09:26→20:21)
[2018-04-23] MEDS: COLLAGENASE 5 GM (UD JAR) TOP (09:35)
[2018-04-23] MEDS: SODIUM HYPOCHLORITE (1/40) 1 APPLIC BTL IRR (09:35)
[2018-04-23] MEDS: ERTAPENEM SODIUM 1 GM in SOD CHLORIDE 0.9% 100 ML IVPB (12:21)
[2018-04-23] MEDS: DAPTOMYCIN IVPB (14:38)
[2018-04-23] MEDS: SOD CHLORIDE 0.9% IVPB (14:38)
[2018-04-23] MEDS: BUMETANIDE 1 MG TAB PO (18:51)
[2018-04-23] MEDS: DOCUSATE SODIUM 100 MG CAP PO (20:21)
[2018-04-24] MEDS: HYDROmorphONE 2 MG/ML SYG IV ×6 (00:17→23:05)
[2018-04-24] MEDS: ALBUTEROL/IPRATROPIUM (NEB) 3 ML AMP HHN ×4 (00:37→23:20)
[2018-04-24] MEDS: ACETYLCYSTEINE 20% 4 ML VIAL NEB ×4 (00:37→23:20)
[2018-04-24] MEDS: LORAZEPAM 2 MG INJ IV ×4 (01:33→21:09)
[2018-04-24] MEDS: HYDROCODONE/APAP (10/325) TAB PO ×2 (02:29→12:08)
[2018-04-24] MEDS: PANTOPRAZOLE (EC) 40 MG TAB PO (05:50)
[2018-04-24] MEDS: LEVOTHYROXINE 100 MCG TAB PO (05:50)
[2018-04-24] MEDS: BUMETANIDE 1 MG TAB PO ×2 (05:53→17:34)
[2018-04-24] MEDS: SODIUM HYPOCHLORITE (1/40) 1 APPLIC BTL IRR (08:50)
[2018-04-24] MEDS: COLLAGENASE 5 GM (UD JAR) TOP (08:50)
[2018-04-24] MEDS: FERROUS SULFATE (EC) 325 MG TAB PO ×2 (08:50→21:05)
[2018-04-24] MEDS: ALLOPURINOL 100 MG TAB PO (08:50)
[2018-04-24] MEDS: LUBIPROSTONE 24 MCG CAP PO ×2 (08:50→21:06)
[2018-04-24] MEDS: SPIRONOLACTONE 25 MG TAB PO (08:50)
[2018-04-24] MEDS: CITRIC ACID/NA CITRATE 30 ML CUP PO ×2 (08:50→21:05)
[2018-04-24] MEDS: LACTOBACILLUS RHAMNOSUS CAP PO (08:50)
[2018-04-24] MEDS: NIFEdipine (XL) 60 MG TAB PO (08:51)
[2018-04-24] MEDS: ISOSORBIDE DINITRATE 20 MG TAB PO ×3 (08:51→21:05)
[2018-04-24] MEDS: METOPROLOL (XL) 50 MG TAB PO ×2 (08:51→21:06)
[2018-04-24] MEDS: NICOTINE (14 MG/24 HR) PATCH TRANSDERM (08:53)
[2018-04-24] MEDS: ERTAPENEM SODIUM 1 GM in SOD CHLORIDE 0.9% 100 ML IVPB (14:02)
[2018-04-24] MEDS: SOD CHLORIDE 0.9% IVPB (15:18)
[2018-04-24] MEDS: DAPTOMYCIN IVPB (15:18)
[2018-04-24] MEDS: MAGNESIUM SULFATE 2 GM/50 ML 50 ML IVPB (20:20)
[2018-04-24] MEDS: DOCUSATE SODIUM 100 MG CAP PO (21:05)
[2018-04-25] MEDS: HYDROmorphONE 2 MG/ML SYG IV ×5 (03:41→21:02)
[2018-04-25] MEDS: LORAZEPAM 2 MG INJ IV ×4 (04:55→23:40)
[2018-04-25 05:39] LABS: WHITE BLOOD COUNT 11.8 10^3/ul (4.8-10.8)
[2018-04-25 05:39] LABS: ABNORMAL IP MESSAGE 1; HEMATOCRIT 26.2 % (42.0-52.0); HEMOGLOBIN 8.1 g/dl (14.0-18.0); MEAN CORPUSCULAR HEMOGLOBIN 24.9 pg (29.0-33.0); MEAN CORPUSCULAR HGB CONC 30.9 g/dl (32.0-37.0); MEAN CORPUSCULAR VOLUME 80.6 fl (82.0-101.0); MEAN PLATELET VOLUME 11.7 fl (7.4-10.4); NUCLEATED RED BLOOD CELLS% 0.3 /100WBC (0.0-0.0); PLATELET COUNT 194 10^3/UL (140-415); POSITIVE DIFF @See below; RED BLOOD COUNT 3.25 10^6/ul (4.70-6.10)
[2018-04-25] MEDS: BUMETANIDE 1 MG TAB PO ×2 (05:45→17:24)
[2018-04-25] MEDS: LEVOTHYROXINE 100 MCG TAB PO (05:45)
[2018-04-25] MEDS: PANTOPRAZOLE (EC) 40 MG TAB PO (05:45)
[2018-04-25 05:52] LABS: ADD MAN DIFF? YES
[2018-04-25 06:43] LABS: ANION GAP 14 (8-16); BLOOD UREA NITROGEN 35 mg/dl (7-20); CALCIUM 8.4 mg/dl (8.4-10.2); CARBON DIOXIDE 27 mmol/L (21-31); CHLORIDE 101 mmol/L (97-110); CREATININE 1.73 mg/dl (0.61-1.24); GLUCOSE 84 mg/dl (70-220); POTASSIUM 4.4 mmol/L (3.5-5.1); SODIUM 138 mmol/L (135-144)
[2018-04-25] MEDS: ACETYLCYSTEINE 20% 4 ML VIAL NEB ×3 (08:00→23:28)
[2018-04-25] MEDS: ALBUTEROL/IPRATROPIUM (NEB) 3 ML AMP HHN ×3 (08:00→23:28)
[2018-04-25] MEDS: CITRIC ACID/NA CITRATE 30 ML CUP PO ×2 (08:33→21:00)
[2018-04-25] MEDS: COLLAGENASE 5 GM (UD JAR) TOP (08:33)
[2018-04-25] MEDS: NICOTINE (14 MG/24 HR) PATCH TRANSDERM (08:34)
[2018-04-25] MEDS: LUBIPROSTONE 24 MCG CAP PO ×2 (08:34→21:01)
[2018-04-25] MEDS: LACTOBACILLUS RHAMNOSUS CAP PO (08:35)
[2018-04-25] MEDS: FERROUS SULFATE (EC) 325 MG TAB PO ×2 (08:35→21:01)
[2018-04-25] MEDS: SPIRONOLACTONE 25 MG TAB PO (08:36)
[2018-04-25] MEDS: ALLOPURINOL 100 MG TAB PO (08:36)
[2018-04-25] MEDS: NIFEdipine (XL) 60 MG TAB PO (08:37)
[2018-04-25] MEDS: ISOSORBIDE DINITRATE 20 MG TAB PO ×3 (08:37→21:01)
[2018-04-25] MEDS: SODIUM HYPOCHLORITE (1/40) 1 APPLIC BTL IRR (08:37)
[2018-04-25] MEDS: METOPROLOL (XL) 50 MG TAB PO ×2 (08:37→21:01)
[2018-04-25 12:02] LABS: ANISOCYTOSIS 1+ (0-0); BAND NEUTROPHILS #M 0.4 10^3/ul (0.0-0.6); BAND NEUTROPHILS % (M) 4 % (0-4); BASOPHIL #M 0.3 10^3/ul (0.0-0.0); BASOPHILS % (M) 3 % (0-2); BURR CELLS 1+ (0-0); EOSINOPHILS % (M) 2 % (0-7); ERYTHROBLAST% (NRBC) (M) 1 % (0-0); GIANT THROMBO% (M) 3 % (0-0); LYMPHOCYTES #M 0.7 10^3/ul (0.8-2.9); LYMPHOCYTES % (M) 6 % (15-51); MICROCYTOSIS 1+ (0-0); MONOCYTE #M 0.7 10^3/ul (0.3-0.9); MONOCYTES % (M) 6 % (0-11); MYELOCYTES #M 0.1 10^3/ul (0.0-0.0); MYELOCYTES % (M) 1 % (0-0); PLATELET ESTIMATE NORMAL; POLYCHROMASIA 2+ (0-0); RBC MORPHOLOGY COMMENT @See below; REACTIVE LYMPHOCYTES #M 0.9 10^3/ul (0.0-0.0); REACTIVE LYMPHOCYTES% (M) 8 % (0-0); SEG NEUT #M 8.3 10^3/ul (1.6-7.5); SEGMENTED NEUTROPHILS (M) % 70 % (39-77); SMUDGE%M 10 % (0-0); WBC MORPHOLOGY COMMENT @See below
[2018-04-25] MEDS: ERTAPENEM SODIUM 1 GM in SOD CHLORIDE 0.9% 100 ML IVPB (12:39)
[2018-04-25] MEDS: SOD CHLORIDE 0.9% IVPB (14:56)
[2018-04-25] MEDS: DAPTOMYCIN IVPB (14:56)
[2018-04-25] MEDS: HYDROCODONE/APAP (10/325) TAB PO ×2 (14:56→22:03)
[2018-04-25] MEDS: DOCUSATE SODIUM 100 MG CAP PO (21:01)
[2018-04-26] MEDS: HYDROmorphONE 2 MG/ML SYG IV ×6 (01:26→21:13)
[2018-04-26] MEDS ORDERED: morphine 2 MG INJ IV (02:00)
[2018-04-26] MEDS ORDERED: TAMSULOSIN (SR) 0.4 MG CAP PO ×2 (02:00→21:00)
[2018-04-26] MEDS ORDERED: DEXTROSE 5%-0.45% NACL 1,000 ML IV (02:00)
[2018-04-26] MEDS: HYDROCODONE/APAP (10/325) TAB PO ×2 (02:35→18:17)
[2018-04-26] MEDS: LEVOTHYROXINE 100 MCG TAB PO (05:24)
[2018-04-26] MEDS: BUMETANIDE 1 MG TAB PO ×2 (05:24→18:16)
[2018-04-26] MEDS: PANTOPRAZOLE (EC) 40 MG TAB PO (05:24)
[2018-04-26 06:08] LABS: CREATINE KINASE < 20 IU/L (23-200)
[2018-04-26] MEDS: ALBUTEROL/IPRATROPIUM (NEB) 3 ML AMP HHN ×2 (08:39→16:00)
[2018-04-26] MEDS: ACETYLCYSTEINE 20% 4 ML VIAL NEB ×2 (08:53→16:14)
[2018-04-26] MEDS: COLLAGENASE 5 GM (UD JAR) TOP (09:00)
[2018-04-26] MEDS: SODIUM HYPOCHLORITE (1/40) 1 APPLIC BTL IRR (09:00)
[2018-04-26] MEDS: NICOTINE (14 MG/24 HR) PATCH TRANSDERM (09:16)
[2018-04-26] MEDS: SPIRONOLACTONE 25 MG TAB PO (09:18)
[2018-04-26] MEDS: LACTOBACILLUS RHAMNOSUS CAP PO (09:18)
[2018-04-26] MEDS: FERROUS SULFATE (EC) 325 MG TAB PO ×2 (09:18→21:14)
[2018-04-26] MEDS: ISOSORBIDE DINITRATE 20 MG TAB PO ×3 (09:19→21:14)
[2018-04-26] MEDS: NIFEdipine (XL) 60 MG TAB PO (09:19)
[2018-04-26] MEDS: ALLOPURINOL 100 MG TAB PO (09:19)
[2018-04-26] MEDS: METOPROLOL (XL) 50 MG TAB PO ×2 (09:20→21:15)
[2018-04-26] MEDS: LUBIPROSTONE 24 MCG CAP PO ×2 (09:20→21:14)
[2018-04-26] MEDS: CITRIC ACID/NA CITRATE 30 ML CUP PO ×2 (09:21→21:16)
[2018-04-26] MEDS: LORAZEPAM 2 MG INJ IV ×2 (10:05→22:03)
[2018-04-26] MEDS: ERTAPENEM SODIUM 1 GM in SOD CHLORIDE 0.9% 100 ML IVPB (13:08)
[2018-04-26] MEDS: SOD CHLORIDE 0.9% IVPB (16:49)
[2018-04-26] MEDS: DAPTOMYCIN IVPB (16:49)
[2018-04-26] MEDS: DOCUSATE SODIUM 100 MG CAP PO (21:14)
[2018-04-27] MEDS: HYDROCODONE/APAP (10/325) TAB PO ×3 (00:12→22:27)
[2018-04-27] MEDS: ACETYLCYSTEINE 20% 4 ML VIAL NEB ×3 (00:55→16:46)
[2018-04-27] MEDS: ALBUTEROL/IPRATROPIUM (NEB) 3 ML AMP HHN ×3 (00:55→16:46)
[2018-04-27] MEDS: HYDROmorphONE 2 MG/ML SYG IV ×5 (01:36→20:18)
[2018-04-27] MEDS: PANTOPRAZOLE (EC) 40 MG TAB PO (05:38)
[2018-04-27] MEDS: LEVOTHYROXINE 100 MCG TAB PO (05:39)
[2018-04-27] MEDS: BUMETANIDE 1 MG TAB PO ×2 (05:39→18:06)
[2018-04-27 06:16] LABS: WHITE BLOOD COUNT 11.5 10^3/ul (4.8-10.8)
[2018-04-27 06:16] LABS: ABNORMAL IP MESSAGE 1; HEMATOCRIT 25.7 % (42.0-52.0); HEMOGLOBIN 7.7 g/dl (14.0-18.0); MEAN CORPUSCULAR HEMOGLOBIN 24.4 pg (29.0-33.0); MEAN CORPUSCULAR VOLUME 81.3 fl (82.0-101.0); NUCLEATED RED BLOOD CELLS% 0.2 /100WBC (0.0-0.0); PLATELET COUNT 209 10^3/UL (140-415); POSITIVE DIFF @See below; RED BLOOD COUNT 3.16 10^6/ul (4.70-6.10); RED CELL DISTRIBUTION WIDTH 21.8 % (11.5-14.5)
[2018-04-27 06:43] LABS: ADD MAN DIFF? YES
[2018-04-27 08:31] LABS: ANION GAP 16 (8-16); BLOOD UREA NITROGEN 40 mg/dl (7-20); CALCIUM 8.7 mg/dl (8.4-10.2); CARBON DIOXIDE 26 mmol/L (21-31); CHLORIDE 99 mmol/L (97-110); CREATININE 1.95 mg/dl (0.61-1.24); GLUCOSE 88 mg/dl (70-220); POTASSIUM 4.3 mmol/L (3.5-5.1); SODIUM 137 mmol/L (135-144)
[2018-04-27] MEDS: SODIUM HYPOCHLORITE (1/40) 1 APPLIC BTL IRR (08:43)
[2018-04-27] MEDS: CITRIC ACID/NA CITRATE 30 ML CUP PO ×2 (08:44→20:17)
[2018-04-27] MEDS: LACTOBACILLUS RHAMNOSUS CAP PO (08:44)
[2018-04-27] MEDS: COLLAGENASE 5 GM (UD JAR) TOP (08:44)
[2018-04-27] MEDS: NICOTINE (14 MG/24 HR) PATCH TRANSDERM (08:44)
[2018-04-27] MEDS: LUBIPROSTONE 24 MCG CAP PO ×2 (08:44→20:16)
[2018-04-27] MEDS: ISOSORBIDE DINITRATE 20 MG TAB PO ×3 (08:45→20:17)
[2018-04-27] MEDS: METOPROLOL (XL) 50 MG TAB PO ×2 (08:45→20:17)
[2018-04-27] MEDS: NIFEdipine (XL) 60 MG TAB PO (08:45)
[2018-04-27] MEDS: FERROUS SULFATE (EC) 325 MG TAB PO ×2 (08:46→20:17)
[2018-04-27] MEDS: ALLOPURINOL 100 MG TAB PO (08:46)
[2018-04-27] MEDS: SPIRONOLACTONE 25 MG TAB PO (08:50)
[2018-04-27] MEDS: LORAZEPAM 2 MG INJ IV (08:55)
[2018-04-27 09:37] LABS: ANISOCYTOSIS 2+ (0-0); BAND NEUTROPHILS #M 0.5 10^3/ul (0.0-0.6); BAND NEUTROPHILS % (M) 5 % (0-4); BASOPHIL #M 0.2 10^3/ul (0.0-0.0); BASOPHILS % (M) 2 % (0-2); BURR CELLS 1+ (0-0); EOSINOPHILS % (M) 1 % (0-7); GIANT THROMBO% (M) 1 % (0-0); HYPOCHROMASIA 2+ (0-0); LYMPHOCYTES #M 0.8 10^3/ul (0.8-2.9); LYMPHOCYTES % (M) 7 % (15-51); MICROCYTOSIS 2+ (0-0); MONOCYTE #M 2.5 10^3/ul (0.3-0.9); MONOCYTES % (M) 22 % (0-11); MYELOCYTES #M 0.1 10^3/ul (0.0-0.0); MYELOCYTES % (M) 1 % (0-0); OVALOCYTES 1+ (0-0); PLATELET ESTIMATE NORMAL; POIKILOCYTOSIS 2+ (0-0); POLYCHROMASIA 3+ (0-0); PROMYELOCYTES #M 0.1 10^3/ul (0-0); PROMYELOCYTES % (M) 1 % (0-0); REACTIVE LYMPHOCYTES #M 0.2 10^3/ul (0.0-0.0); REACTIVE LYMPHOCYTES% (M) 2 % (0-0); SCHISTOCYTES 1+ (0-0); SEG NEUT #M 6.8 10^3/ul (1.6-7.5); SEGMENTED NEUTROPHILS (M) % 59 % (39-77); SMUDGE%M 5 % (0-0)
[2018-04-27] MEDS: ERTAPENEM SODIUM 1 GM in SOD CHLORIDE 0.9% 100 ML IVPB (13:51)
[2018-04-27 14:02] LABS: MAGNESIUM 1.5 mg/dl (1.7-2.5)
[2018-04-27] MEDS: DAPTOMYCIN IVPB (14:51)
[2018-04-27] MEDS: SOD CHLORIDE 0.9% IVPB (14:51)
[2018-04-27] MEDS: DOCUSATE SODIUM 100 MG CAP PO (20:16)
[2018-04-28] MEDS: HYDROmorphONE 2 MG/ML SYG IV ×5 (00:01→19:27)
[2018-04-28] MEDS: LORAZEPAM 2 MG INJ IV ×3 (00:50→21:13)
[2018-04-28] MEDS: ACETYLCYSTEINE 20% 4 ML VIAL NEB ×4 (01:09→23:21)
[2018-04-28] MEDS: ALBUTEROL/IPRATROPIUM (NEB) 3 ML AMP HHN ×4 (01:09→23:20)
[2018-04-28] MEDS: BUMETANIDE 1 MG TAB PO ×2 (05:26→18:42)
[2018-04-28] MEDS: HYDROCODONE/APAP (10/325) TAB PO ×2 (05:26→16:51)
[2018-04-28] MEDS: LEVOTHYROXINE 100 MCG TAB PO (05:26)
[2018-04-28] MEDS: PANTOPRAZOLE (EC) 40 MG TAB PO (05:26)
[2018-04-28 06:56] LABS: ABNORMAL IP MESSAGE 1; HEMATOCRIT 26.2 % (42.0-52.0); HEMOGLOBIN 7.9 g/dl (14.0-18.0); MEAN CORPUSCULAR HEMOGLOBIN 23.9 pg (29.0-33.0); MEAN CORPUSCULAR HGB CONC 30.2 g/dl (32.0-37.0); MEAN CORPUSCULAR VOLUME 79.4 fl (82.0-101.0); NUCLEATED RED BLOOD CELLS% 0.2 /100WBC (0.0-0.0); PLATELET COUNT 172 10^3/UL (140-415); POSITIVE DIFF @See below; RED CELL DISTRIBUTION WIDTH 22.2 % (11.5-14.5)
[2018-04-28 06:56] LABS: WHITE BLOOD COUNT 9.8 10^3/ul (4.8-10.8)
[2018-04-28 07:17] LABS: ADD MAN DIFF? YES
[2018-04-28 07:23] LABS: ANION GAP 13 (8-16); BLOOD UREA NITROGEN 42 mg/dl (7-20); CALCIUM 8.4 mg/dl (8.4-10.2); CARBON DIOXIDE 28 mmol/L (21-31); CHLORIDE 100 mmol/L (97-110); GLUCOSE 108 mg/dl (70-220); POTASSIUM 4.2 mmol/L (3.5-5.1); SODIUM 137 mmol/L (135-144)
[2018-04-28] MEDS: FERROUS SULFATE (EC) 325 MG TAB PO ×2 (08:24→21:12)
[2018-04-28] MEDS: COLLAGENASE 5 GM (UD JAR) TOP (08:24)
[2018-04-28] MEDS: CITRIC ACID/NA CITRATE 30 ML CUP PO ×2 (08:24→21:12)
[2018-04-28] MEDS: LUBIPROSTONE 24 MCG CAP PO ×2 (08:24→21:12)
[2018-04-28] MEDS: SPIRONOLACTONE 25 MG TAB PO (08:24)
[2018-04-28] MEDS: LACTOBACILLUS RHAMNOSUS CAP PO (08:25)
[2018-04-28] MEDS: METOPROLOL (XL) 50 MG TAB PO ×2 (08:26→21:12)
[2018-04-28] MEDS: ISOSORBIDE DINITRATE 20 MG TAB PO ×3 (08:27→21:13)
[2018-04-28] MEDS: SODIUM HYPOCHLORITE (1/40) 1 APPLIC BTL IRR (08:27)
[2018-04-28] MEDS: NIFEdipine (XL) 60 MG TAB PO (08:42)
[2018-04-28 09:40] LABS: ANISOCYTOSIS 2+ (0-0); BAND NEUTROPHILS #M 0.2 10^3/ul (0.0-0.6); BAND NEUTROPHILS % (M) 3 % (0-4); BASOPHIL #M 0.2 10^3/ul (0.0-0.0); BASOPHILS % (M) 3 % (0-2); EOSINOPHILS % (M) 1 % (0-7); ERYTHROBLAST% (NRBC) (M) 1 % (0-0); GIANT THROMBO% (M) 5 % (0-0); HYPOCHROMASIA 2+ (0-0); LYMPHOCYTES #M 0.8 10^3/ul (0.8-2.9); LYMPHOCYTES % (M) 9 % (15-51); MICROCYTOSIS 2+ (0-0); MONOCYTE #M 1.4 10^3/ul (0.3-0.9); MONOCYTES % (M) 15 % (0-11); MYELOCYTES #M 0.2 10^3/ul (0.0-0.0); MYELOCYTES % (M) 3 % (0-0); PLATELET ESTIMATE NORMAL; POIKILOCYTOSIS 2+ (0-0); POLYCHROMASIA 3+ (0-0); REACTIVE LYMPHOCYTES% (M) 1 % (0-0); SCHISTOCYTES 1+ (0-0); SEG NEUT #M 6.4 10^3/ul (1.6-7.5); SEGMENTED NEUTROPHILS (M) % 65 % (39-77); SMUDGE%M 4 % (0-0)
[2018-04-28] MEDS: ALLOPURINOL 100 MG TAB PO (10:53)
[2018-04-28] MEDS: NICOTINE (14 MG/24 HR) PATCH TRANSDERM (10:53)
[2018-04-28] MEDS: ERTAPENEM SODIUM 1 GM in SOD CHLORIDE 0.9% 100 ML IVPB (14:19)
[2018-04-28 14:36] LABS: MAGNESIUM 1.6 mg/dl (1.7-2.5)
[2018-04-28] MEDS: DAPTOMYCIN IVPB (16:48)
[2018-04-28] MEDS: SOD CHLORIDE 0.9% IVPB (16:48)
[2018-04-28] MEDS: MAGNESIUM SULFATE 1 GM/D5W 100 ML IVPB (18:42)
[2018-04-28] MEDS: DOCUSATE SODIUM 100 MG CAP PO (21:12)
[2018-04-29] MEDS: HYDROmorphONE 2 MG/ML SYG IV ×4 (02:50→17:54)
[2018-04-29] MEDS: BUMETANIDE 1 MG TAB PO ×2 (05:09→17:54)
[2018-04-29] MEDS: LEVOTHYROXINE 100 MCG TAB PO (05:09)
[2018-04-29] MEDS: LORAZEPAM 2 MG INJ IV ×3 (05:09→18:48)
[2018-04-29] MEDS: PANTOPRAZOLE (EC) 40 MG TAB PO (05:09)
[2018-04-29 07:13] LABS: MAGNESIUM 1.7 mg/dl (1.7-2.5)
[2018-04-29] MEDS: ALBUTEROL/IPRATROPIUM (NEB) 3 ML AMP HHN ×3 (07:53→23:13)
[2018-04-29] MEDS: ACETYLCYSTEINE 20% 4 ML VIAL NEB ×3 (07:54→23:13)
[2018-04-29] MEDS: COLLAGENASE 5 GM (UD JAR) TOP (09:00)
[2018-04-29] MEDS: SPIRONOLACTONE 25 MG TAB PO (09:09)
[2018-04-29] MEDS: LUBIPROSTONE 24 MCG CAP PO ×2 (09:09→20:57)
[2018-04-29] MEDS: NIFEdipine (XL) 60 MG TAB PO (09:09)
[2018-04-29] MEDS: LACTOBACILLUS RHAMNOSUS CAP PO (09:09)
[2018-04-29] MEDS: FERROUS SULFATE (EC) 325 MG TAB PO ×2 (09:09→20:58)
[2018-04-29] MEDS: ISOSORBIDE DINITRATE 20 MG TAB PO ×3 (09:09→20:57)
[2018-04-29] MEDS: SODIUM HYPOCHLORITE (1/40) 1 APPLIC BTL IRR (09:10)
[2018-04-29] MEDS: METOPROLOL (XL) 50 MG TAB PO ×2 (09:10→20:57)
[2018-04-29] MEDS: CITRIC ACID/NA CITRATE 30 ML CUP PO ×2 (12:37→20:56)
[2018-04-29] MEDS: ALLOPURINOL 100 MG TAB PO (12:38)
[2018-04-29] MEDS: NICOTINE (14 MG/24 HR) PATCH TRANSDERM (12:39)
[2018-04-29] MEDS: ERTAPENEM SODIUM 1 GM in SOD CHLORIDE 0.9% 100 ML IVPB (13:35)
[2018-04-29] MEDS: SOD CHLORIDE 0.9% IVPB (15:36)
[2018-04-29] MEDS: DAPTOMYCIN IVPB (15:36)
[2018-04-29] MEDS: DOCUSATE SODIUM 100 MG CAP PO (20:56)
[2018-04-29] MEDS: HYDROCODONE/APAP (10/325) TAB PO (20:58)
[2018-04-30] MEDS: HYDROmorphONE 2 MG/ML SYG IV ×6 (00:38→22:06)
[2018-04-30] MEDS: LORAZEPAM 2 MG INJ IV ×4 (02:32→23:17)
[2018-04-30] MEDS: HYDROCODONE/APAP (10/325) TAB PO ×2 (03:32→14:10)
[2018-04-30] MEDS: PANTOPRAZOLE (EC) 40 MG TAB PO (05:28)
[2018-04-30] MEDS: LEVOTHYROXINE 100 MCG TAB PO (05:28)
[2018-04-30] MEDS: BUMETANIDE 1 MG TAB PO ×2 (05:28→17:06)
[2018-04-30 07:01] LABS: ABNORMAL IP MESSAGE 1; HEMATOCRIT 25.3 % (42.0-52.0); HEMOGLOBIN 7.7 g/dl (14.0-18.0); MEAN CORPUSCULAR HEMOGLOBIN 24.3 pg (29.0-33.0); MEAN CORPUSCULAR HGB CONC 30.4 g/dl (32.0-37.0); MEAN CORPUSCULAR VOLUME 79.8 fl (82.0-101.0); NUCLEATED RED BLOOD CELLS% 0.3 /100WBC (0.0-0.0); PLATELET COUNT 207 10^3/UL (140-415); POSITIVE DIFF @See below; RED BLOOD COUNT 3.17 10^6/ul (4.70-6.10); RED CELL DISTRIBUTION WIDTH 22.3 % (11.5-14.5)
[2018-04-30 07:01] LABS: WHITE BLOOD COUNT 11.6 10^3/ul (4.8-10.8)
[2018-04-30 07:05] LABS: ADD MAN DIFF? YES
[2018-04-30 07:19] LABS: ANION GAP 12 (8-16); BLOOD UREA NITROGEN 46 mg/dl (7-20); CALCIUM 8.1 mg/dl (8.4-10.2); CARBON DIOXIDE 29 mmol/L (21-31); CHLORIDE 100 mmol/L (97-110); CREATININE 2.31 mg/dl (0.61-1.24); GLUCOSE 96 mg/dl (70-220); POTASSIUM 4.2 mmol/L (3.5-5.1); SODIUM 137 mmol/L (135-144)
[2018-04-30 08:43] LABS: ANISOCYTOSIS 1+ (0-0); BAND NEUTROPHILS #M 0.4 10^3/ul (0.0-0.6); BAND NEUTROPHILS % (M) 4 % (0-4); EOSINOPHILS % (M) 4 % (0-7); GIANT THROMBO% (M) 1 % (0-0); HYPOCHROMASIA 1+ (0-0); LYMPHOCYTES % (M) 9 % (15-51); METAMYELOCYTES #M 0.2 10^3/ul (0.0-0.0); METAMYELOCYTES %M 2 % (0-0); MONOCYTE #M 1.1 10^3/ul (0.3-0.9); MONOCYTES % (M) 10 % (0-11); MYELOCYTES #M 0.3 10^3/ul (0.0-0.0); MYELOCYTES % (M) 3 % (0-0); PLATELET ESTIMATE NORMAL; SEG NEUT #M 7.8 10^3/ul (1.6-7.5); SEGMENTED NEUTROPHILS (M) % 67 % (39-77); SMUDGE%M 24 % (0-0)
[2018-04-30] MEDS: SPIRONOLACTONE 25 MG TAB PO (09:10)
[2018-04-30] MEDS: LUBIPROSTONE 24 MCG CAP PO ×2 (09:10→20:29)
[2018-04-30] MEDS: FERROUS SULFATE (EC) 325 MG TAB PO ×2 (09:11→20:28)
[2018-04-30] MEDS: LACTOBACILLUS RHAMNOSUS CAP PO (09:11)
[2018-04-30] MEDS: NIFEdipine (XL) 60 MG TAB PO (09:11)
[2018-04-30] MEDS: ISOSORBIDE DINITRATE 20 MG TAB PO ×3 (09:11→20:29)
[2018-04-30] MEDS: METOPROLOL (XL) 50 MG TAB PO ×2 (09:12→20:29)
[2018-04-30] MEDS: NICOTINE (14 MG/24 HR) PATCH TRANSDERM (09:12)
[2018-04-30] MEDS: ALLOPURINOL 100 MG TAB PO (09:12)
[2018-04-30] MEDS: ACETYLCYSTEINE 20% 4 ML VIAL NEB (09:14)
[2018-04-30] MEDS: ALBUTEROL/IPRATROPIUM (NEB) 3 ML AMP HHN ×2 (09:14→15:45)
[2018-04-30] MEDS: ERTAPENEM SODIUM 1 GM in SOD CHLORIDE 0.9% 100 ML IVPB (14:31)
[2018-04-30] MEDS: SODIUM HYPOCHLORITE (1/40) 1 APPLIC BTL IRR (14:32)
[2018-04-30] MEDS: COLLAGENASE 5 GM (UD JAR) TOP (14:32)
[2018-04-30] MEDS: DAPTOMYCIN IVPB (15:49)
[2018-04-30] MEDS: SOD CHLORIDE 0.9% IVPB (15:49)
[2018-04-30] MEDS: EPOETIN 10000 UNITS/ML (NON ESRD/NON ONCOLOGY) SC (17:57)
[2018-04-30] MEDS: DOCUSATE SODIUM 100 MG CAP PO (20:28)
[2018-05-01] MEDS: HYDROmorphONE 2 MG/ML SYG IV ×5 (02:10→21:36)
[2018-05-01] MEDS: HYDROCODONE/APAP (10/325) TAB PO ×2 (04:27→13:06)
[2018-05-01] MEDS: LEVOTHYROXINE 100 MCG TAB PO (06:05)
[2018-05-01] MEDS: PANTOPRAZOLE (EC) 40 MG TAB PO (06:05)
[2018-05-01] MEDS: BUMETANIDE 1 MG TAB PO ×2 (06:05→17:58)
[2018-05-01 07:14] LABS: ABNORMAL IP MESSAGE 1; HEMATOCRIT 24.3 % (42.0-52.0); HEMOGLOBIN 7.4 g/dl (14.0-18.0); MEAN CORPUSCULAR HEMOGLOBIN 23.9 pg (29.0-33.0); MEAN CORPUSCULAR HGB CONC 30.5 g/dl (32.0-37.0); MEAN CORPUSCULAR VOLUME 78.4 fl (82.0-101.0); NUCLEATED RED BLOOD CELLS% 0.2 /100WBC (0.0-0.0); PLATELET COUNT 193 10^3/UL (140-415); POSITIVE DIFF @See below; RED CELL DISTRIBUTION WIDTH 22.6 % (11.5-14.5)
[2018-05-01 07:16] LABS: ADD MAN DIFF? YES
[2018-05-01 07:33] LABS: INR 1.17; PROTIME 15.1 Sec (11.9-14.9); PT RATIO 1.2
[2018-05-01 07:34] LABS: PARTIAL THROMBOPLASTIN TIME 43.8 Sec (25.0-35.0)
[2018-05-01 07:35] LABS: ANION GAP 15 (8-16); BLOOD UREA NITROGEN 52 mg/dl (7-20); CALCIUM 8.2 mg/dl (8.4-10.2); CARBON DIOXIDE 26 mmol/L (21-31); CHLORIDE 99 mmol/L (97-110); CREATININE 2.26 mg/dl (0.61-1.24); GLUCOSE 84 mg/dl (70-220); POTASSIUM 4.3 mmol/L (3.5-5.1); SODIUM 136 mmol/L (135-144)
[2018-05-01] MEDS: ALBUTEROL/IPRATROPIUM (NEB) 3 ML AMP HHN ×4 (07:49→23:25)
[2018-05-01 08:18] LABS: ANISOCYTOSIS 1+ (0-0); BAND NEUTROPHILS #M 0.6 10^3/ul (0.0-0.6); BAND NEUTROPHILS % (M) 5 % (0-4); BASOPHIL #M 0.3 10^3/ul (0.0-0.0); BASOPHILS % (M) 3 % (0-2); BURR CELLS 2+ (0-0); EOSINOPHILS % (M) 2 % (0-7); HYPOCHROMASIA 1+ (0-0); LYMPHOCYTES #M 0.2 10^3/ul (0.8-2.9); LYMPHOCYTES % (M) 2 % (15-51); MICROCYTOSIS 1+ (0-0); MONOCYTE #M 0.9 10^3/ul (0.3-0.9); MONOCYTES % (M) 8 % (0-11); MYELOCYTES #M 0.2 10^3/ul (0.0-0.0); MYELOCYTES % (M) 2 % (0-0); OVALOCYTES 1+ (0-0); PLATELET ESTIMATE NORMAL; POIKILOCYTOSIS 1+ (0-0); POLYCHROMASIA 2+ (0-0); PROMYELOCYTES #M 0.2 10^3/ul (0-0); PROMYELOCYTES % (M) 2 % (0-0); REACTIVE LYMPHOCYTES #M 0.2 10^3/ul (0.0-0.0); REACTIVE LYMPHOCYTES% (M) 2 % (0-0); SEGMENTED NEUTROPHILS (M) % 74 % (39-77); SMUDGE%M 34 % (0-0); SPHEROCYTES 1+ (0-0); TARGET CELLS 1+ (0-0)
[2018-05-01] MEDS: LORAZEPAM 2 MG INJ IV ×2 (08:30→18:04)
[2018-05-01] MEDS: NICOTINE (14 MG/24 HR) PATCH TRANSDERM (08:31)
[2018-05-01] MEDS: FERROUS SULFATE (EC) 325 MG TAB PO ×2 (08:32→21:19)
[2018-05-01] MEDS: SPIRONOLACTONE 25 MG TAB PO (08:32)
[2018-05-01] MEDS: LACTOBACILLUS RHAMNOSUS CAP PO (08:32)
[2018-05-01] MEDS: NIFEdipine (XL) 60 MG TAB PO (08:32)
[2018-05-01] MEDS: METOPROLOL (XL) 50 MG TAB PO ×2 (08:33→21:19)
[2018-05-01] MEDS: ISOSORBIDE DINITRATE 20 MG TAB PO ×3 (08:33→21:36)
[2018-05-01] MEDS: ALLOPURINOL 100 MG TAB PO (08:33)
[2018-05-01] MEDS: LUBIPROSTONE 24 MCG CAP PO ×2 (08:34→21:18)
[2018-05-01] MEDS: SODIUM HYPOCHLORITE (1/40) 1 APPLIC BTL IRR (08:36)
[2018-05-01] MEDS: COLLAGENASE 5 GM (UD JAR) TOP (09:00)
[2018-05-01] MEDS: LIDOCAINE 1% (MPF) 5 ML VIAL (10:39)
[2018-05-01] MEDS: ERTAPENEM SODIUM 1 GM in SOD CHLORIDE 0.9% 100 ML IVPB (13:06)
[2018-05-01 16:13] LABS: FLD MN% 70.7 %; FLD PMN% 29.3 %; FLD RBC 4000 /uL; FLD WBC 776 /cmm
[2018-05-01] MEDS: DAPTOMYCIN IVPB (16:43)
[2018-05-01] MEDS: SOD CHLORIDE 0.9% IVPB (16:43)
[2018-05-01] MEDS ORDERED: SOD CHLORIDE 0.9% 250 ML IV* (17:12)
[2018-05-01 18:59] LABS: FLD TYPE PARACENTHESIS
[2018-05-01 18:59] LABS: FLD CLARITY SLIGHTLY CLOUDY; FLD COLOR YELLOW
[2018-05-01] MEDS: DOCUSATE SODIUM 100 MG CAP PO (21:18)
[2018-05-01 22:37] LABS: IMMEDIATE SPIN CROSSMATCH 1 1
[2018-05-02] MEDS: HYDROmorphONE 2 MG/ML SYG IV ×4 (03:21→20:41)
[2018-05-02] MEDS: BUMETANIDE 1 MG TAB PO ×2 (05:45→17:27)
[2018-05-02] MEDS: LEVOTHYROXINE 100 MCG TAB PO (05:46)
[2018-05-02] MEDS: LORAZEPAM 2 MG INJ IV ×2 (05:46→14:37)
[2018-05-02] MEDS: PANTOPRAZOLE (EC) 40 MG TAB PO (05:46)
[2018-05-02 07:09] LABS: ABNORMAL IP MESSAGE 1; HEMATOCRIT 26.1 % (42.0-52.0); HEMOGLOBIN 8.1 g/dl (14.0-18.0); MEAN CORPUSCULAR VOLUME 80.6 fl (82.0-101.0); NUCLEATED RED BLOOD CELLS% 0.4 /100WBC (0.0-0.0); PLATELET COUNT 172 10^3/UL (140-415); POSITIVE DIFF @See below; RED BLOOD COUNT 3.24 10^6/ul (4.70-6.10)
[2018-05-02 07:09] LABS: WHITE BLOOD COUNT 10.9 10^3/ul (4.8-10.8)
[2018-05-02 07:13] LABS: ADD MAN DIFF? YES
[2018-05-02 07:33] LABS: ANION GAP 13 (8-16); BLOOD UREA NITROGEN 51 mg/dl (7-20); CALCIUM 8.1 mg/dl (8.4-10.2); CARBON DIOXIDE 26 mmol/L (21-31); CHLORIDE 103 mmol/L (97-110); CREATININE 2.18 mg/dl (0.61-1.24); GLUCOSE 120 mg/dl (70-220); POTASSIUM 4.4 mmol/L (3.5-5.1); SODIUM 138 mmol/L (135-144)
[2018-05-02] MEDS: ALBUTEROL/IPRATROPIUM (NEB) 3 ML AMP HHN ×2 (07:51→16:16)
[2018-05-02 09:28] LABS: ANISOCYTOSIS 1+ (0-0); BAND NEUTROPHILS #M 0.3 10^3/ul (0.0-0.6); BAND NEUTROPHILS % (M) 3 % (0-4); BASOPHIL #M 0.1 10^3/ul (0.0-0.0); BASOPHILS % (M) 1 % (0-2); BURR CELLS 1+ (0-0); EOSINOPHILS % (M) 3 % (0-7); GIANT THROMBO% (M) 8 % (0-0); LYMPHOCYTES #M 0.9 10^3/ul (0.8-2.9); LYMPHOCYTES % (M) 9 % (15-51); MICROCYTOSIS 1+ (0-0); MONOCYTE #M 1.8 10^3/ul (0.3-0.9); MONOCYTES % (M) 17 % (0-11); MYELOCYTES #M 0.1 10^3/ul (0.0-0.0); MYELOCYTES % (M) 1 % (0-0); PLATELET ESTIMATE NORMAL; POIKILOCYTOSIS 2+ (0-0); POLYCHROMASIA 1+ (0-0); REACTIVE LYMPHOCYTES #M 0.1 10^3/ul (0.0-0.0); REACTIVE LYMPHOCYTES% (M) 1 % (0-0); SEG NEUT #M 7.1 10^3/ul (1.6-7.5); SEGMENTED NEUTROPHILS (M) % 65 % (39-77); SMUDGE%M 75 % (0-0)
[2018-05-02] MEDS: SODIUM HYPOCHLORITE (1/40) 1 APPLIC BTL IRR (10:36)
[2018-05-02] MEDS: COLLAGENASE 5 GM (UD JAR) TOP (10:37)
[2018-05-02] MEDS: METOPROLOL (XL) 50 MG TAB PO ×2 (10:37→20:44)
[2018-05-02] MEDS: SPIRONOLACTONE 25 MG TAB PO (10:38)
[2018-05-02] MEDS: LUBIPROSTONE 24 MCG CAP PO ×2 (10:38→20:44)
[2018-05-02] MEDS: ALLOPURINOL 100 MG TAB PO (10:38)
[2018-05-02] MEDS: ISOSORBIDE DINITRATE 20 MG TAB PO ×3 (10:39→20:43)
[2018-05-02] MEDS: LACTOBACILLUS RHAMNOSUS CAP PO (10:39)
[2018-05-02] MEDS: FERROUS SULFATE (EC) 325 MG TAB PO ×2 (10:39→20:42)
[2018-05-02] MEDS: NIFEdipine (XL) 60 MG TAB PO (10:39)
[2018-05-02] MEDS: NICOTINE (14 MG/24 HR) PATCH TRANSDERM (10:40)
[2018-05-02] MEDS: ERTAPENEM SODIUM 1 GM in SOD CHLORIDE 0.9% 100 ML IVPB (14:23)
[2018-05-02] MEDS: DAPTOMYCIN IVPB (16:24)
[2018-05-02] MEDS: SOD CHLORIDE 0.9% IVPB (16:24)
[2018-05-02] MEDS: EPOETIN 10000 UNITS/ML (NON ESRD/NON ONCOLOGY) SC (16:27)
[2018-05-02] MEDS: HYDROCODONE/APAP (10/325) TAB PO (17:25)
[2018-05-02] MEDS: DOCUSATE SODIUM 100 MG CAP PO (20:42)
== END 2018-05-02 21:55 | disposition home health service (06) | DRG 853 ==
LOC: TEL 19:12 → 2NE 04-14 20:00 → E/R 15:25 → TEL 17:20
PROC: 0JBR0ZZ Excision of Left Foot Subcutaneous Tissue and Fascia, Open Approach (ICD-10-PCS; principal; 2018-04-09)
PROC: 0W9G3ZZ Drainage of Peritoneal Cavity, Percutaneous Approach (ICD-10-PCS; 2018-04-10)
PROC: 02HV33Z Insertion of Infusion Device into Superior Vena Cava, Percutaneous Approach (ICD-10-PCS; 2018-04-18)
PROC: B548ZZA Ultrasonography of Superior Vena Cava, Guidance (ICD-10-PCS; 2018-04-18)
PROC: 0W9G3ZZ Drainage of Peritoneal Cavity, Percutaneous Approach (ICD-10-PCS; 2018-05-01)
PROC: 30233N1 Transfusion of Nonautologous Red Blood Cells into Peripheral Vein, Percutaneous Approach (ICD-10-PCS; 2018-05-01)
DX: A41.9 Sepsis, unspecified organism (principal); J96.00 Acute respiratory failure, unspecified whether with hypoxia or hypercapnia; I50.33 Acute on chronic diastolic (congestive) heart failure; L03.116 Cellulitis of left lower limb; L03.115 Cellulitis of right lower limb; N17.9 Acute kidney failure, unspecified; E87.2 Acidosis; I42.9 Cardiomyopathy, unspecified; M86.8X7 Other osteomyelitis, ankle and foot; L03.311 Cellulitis of abdominal wall; L97.529 Non-pressure chronic ulcer of other part of left foot with unspecified severity; G62.9 Polyneuropathy, unspecified; R65.20 Severe sepsis without septic shock; N18.9 Chronic kidney disease, unspecified; I50.84 End stage heart failure; Z91.19 Patient's noncompliance with other medical treatment and regimen; F17.200 Nicotine dependence, unspecified, uncomplicated; I87.8 Other specified disorders of veins; N40.0 Benign prostatic hyperplasia without lower urinary tract symptoms; E78.5 Hyperlipidemia, unspecified; K70.31 Alcoholic cirrhosis of liver with ascites; E79.0 Hyperuricemia without signs of inflammatory arthritis and tophaceous disease; J44.9 Chronic obstructive pulmonary disease, unspecified; K80.20 Calculus of gallbladder without cholecystitis without obstruction; R19.09 Other intra-abdominal and pelvic swelling, mass and lump; E03.9 Hypothyroidism, unspecified; E83.42 Hypomagnesemia
CPT/HCPCS: 36415; 36430; 36569; 71045; 73630-LT; 73718; 74018; 74176; 76536; 76705; 76937; 80048; 80053; 80202; 81003; 82550; 82553; 83036; 83605; 83735; 83880; 84100; 84134; 84484; 85025; 85610; 85730; 86850; 86900; 86901; 86920; 87040; 87070; 87102; 87116; 88104; 88305; 89051; 93005; 93922; 94640; 94664; 94667; 94668; 97110; 97161; 99285-25

== ENCOUNTER 2018-05-10 06:20 | Inpatient (IN) | payer BC ==
[2018-05-10] MEDS: ONDANSETRON 4 MG INJ IV ×2 (07:05→09:58)
[2018-05-10] MEDS: HYDROmorphONE 1 MG/ML SYG IV ×2 (07:05→10:37)
[2018-05-10 07:06] LABS: ADD UMIC NO; UR ASCORBIC ACID NEGATIVE (NEGATIVE); UR BILIRUBIN (Dip) NEGATIVE (NEGATIVE); UR BLOOD (Dip) NEGATIVE (NEGATIVE); UR CLARITY CLEAR (CLEAR); UR COLOR YELLOW (YELLOW); UR GLUCOSE (Dip) NEGATIVE (NEGATIVE); UR KETONES (Dip) NEGATIVE (NEGATIVE); UR LEUKOCYTE ESTERASE (Dip) NEGATIVE Leu/ul (NEGATIVE); UR NITRITE (Dip) NEGATIVE (NEGATIVE); UR SPECIFIC GRAVITY (Dip) 1.008 (1.003-1.030); UR TOTAL PROTEIN (Dip) NEGATIVE (NEGATIVE); UR UROBILINOGEN (Dip) NEGATIVE (NEGATIVE)
[2018-05-10 07:12] LABS: WHITE BLOOD COUNT 20.6 10^3/ul (4.8-10.8)
[2018-05-10 07:12] LABS: ABNORMAL IP MESSAGE 1; HEMATOCRIT 22.6 % (42.0-52.0); MEAN CORPUSCULAR HEMOGLOBIN 24.5 pg (29.0-33.0); MEAN CORPUSCULAR HGB CONC 29.6 g/dl (32.0-37.0); MEAN CORPUSCULAR VOLUME 82.5 fl (82.0-101.0); NUCLEATED RED BLOOD CELLS% 1.5 /100WBC (0.0-0.0); PLATELET COUNT 206 10^3/UL (140-415); POSITIVE DIFF @See below; RED BLOOD COUNT 2.74 10^6/ul (4.70-6.10); RED CELL DISTRIBUTION WIDTH 25.5 % (11.5-14.5)
[2018-05-10 07:24] LABS: INR 1.09; PROTIME 14.2 Sec (11.9-14.9); PT RATIO 1.1
[2018-05-10 07:25] LABS: PARTIAL THROMBOPLASTIN TIME 37.1 Sec (23.0-35.0)
[2018-05-10 07:26] LABS: ADD MAN DIFF? YES; ALANINE AMINOTRANSFERASE 20 IU/L (13-69); ALBUMIN 3.5 g/dl (3.3-4.9); ALKALINE PHOSPHATASE 203 IU/L (42-121); AMYLASE 67 U/L (11-123); ANION GAP 17 (8-16); ASPARTATE AMINO TRANSFERASE 40 IU/L (15-46); BILIRUBIN,INDIRECT 0.2 mg/dl (0-1.1); BILIRUBIN,TOTAL 0.2 mg/dl (0.2-1.3); BLOOD UREA NITROGEN 66 mg/dl (7-20); CALCIUM 7.8 mg/dl (8.4-10.2); CARBON DIOXIDE 19 mmol/L (21-31); CHLORIDE 108 mmol/L (97-110); CREATININE 1.93 mg/dl (0.61-1.24); GLUCOSE 110 mg/dl (70-220); HEMOGLOBIN 6.7 g/dl (14.0-18.0); LIPASE 46 U/L (23-300); POTASSIUM 3.9 mmol/L (3.5-5.1); SODIUM 140 mmol/L (135-144); TOTAL PROTEIN 6.4 g/dl (6.1-8.1)
[2018-05-10 07:31] LABS: LACTIC ACID 2.5 mmol/L (0.5-2.0)
[2018-05-10] MEDS: CEFEPIME 2GM/50 ML (PMX) 50 ML IVPB (07:31)
[2018-05-10 07:39] LABS: TROPONIN-I 0.014 ng/ml (0.000-0.120)
[2018-05-10] MEDS: SODIUM CHLORIDE 0.9% 1L BAG IV* (07:50)
[2018-05-10] MEDS: ALBUTEROL HFA 8 GM INHALER INH (07:54)
[2018-05-10] MEDS: VANCOMYCIN 1 GM (PMX) 250 ML IVPB (08:00)
[2018-05-10 08:10] LABS: ANISOCYTOSIS 2+ (0-0); BAND NEUTROPHILS #M 1.2 10^3/ul (0.0-0.6); BAND NEUTROPHILS % (M) 6 % (0-4); BASOPHIL #M 0.6 10^3/ul (0.0-0.0); BASOPHILS % (M) 3 % (0-2); BURR CELLS 2+ (0-0); EOSINOPHILS % (M) 4 % (0-7); ERYTHROBLAST% (NRBC) (M) 4 % (0-0); GIANT THROMBO% (M) 1 % (0-0); HYPOCHROMASIA 1+ (0-0); LYMPHOCYTES #M 2.4 10^3/ul (0.8-2.9); LYMPHOCYTES % (M) 12 % (15-51); METAMYELOCYTES #M 0.2 10^3/ul (0.0-0.0); METAMYELOCYTES %M 1 % (0-0); MICROCYTOSIS 2+ (0-0); MONOCYTES % (M) 5 % (0-11); MYELOCYTES #M 0.8 10^3/ul (0.0-0.0); MYELOCYTES % (M) 4 % (0-0); OVALOCYTES 1+ (0-0); PLATELET ESTIMATE NORMAL; PLATELET MORPHOLOGY COMMENT @See below; POIKILOCYTOSIS 3+ (0-0); POLYCHROMASIA 3+ (0-0); PROMYELOCYTES #M 0.2 10^3/ul (0-0); PROMYELOCYTES % (M) 1 % (0-0); REACTIVE LYMPHOCYTES #M 0.2 10^3/ul (0.0-0.0); REACTIVE LYMPHOCYTES% (M) 1 % (0-0); SCHISTOCYTES 1+ (0-0); SEG NEUT #M 13.2 10^3/ul (1.6-7.5); SEGMENTED NEUTROPHILS (M) % 63 % (39-77); SMUDGE%M 12 % (0-0)
[2018-05-10] MEDS ORDERED: ONDANSETRON 4 MG INJ IV (08:30)
[2018-05-10] MEDS ORDERED: ACETAMINOPHEN 325 MG TAB PO (08:30)
[2018-05-10 08:57] LABS: B-TYPE NATRIURETIC PEPTIDE 3820 PG/ML (0-125)
[2018-05-10] MEDS: HYDROmorphONE 2 MG/ML SYG IV ×3 (13:10→22:15)
[2018-05-10] MEDS ORDERED: hydrALAzine 20 MG INJ IV (14:30)
[2018-05-10] MEDS: BUMETANIDE 1 MG INJ IV (15:20)
[2018-05-10] MEDS: METOPROLOL (XL) 25 MG TAB PO (15:21)
[2018-05-10 15:34] LABS: LACTIC ACID 1.7 mmol/L (0.5-2.0)
[2018-05-10] MEDS: SOD CHLORIDE 0.9% IVPB (17:10)
[2018-05-10] MEDS: DAPTOMYCIN IVPB (17:10)
[2018-05-10] MEDS: BUMETANIDE 1 MG TAB PO (17:29)
[2018-05-10] MEDS: FUROSEMIDE 20 MG INJ IV (17:48)
[2018-05-10] MEDS: SOD CHLORIDE 0.9% 250 ML IV* (17:53)
[2018-05-10] MEDS: CITRIC ACID/NA CITRATE 30 ML CUP PO (21:04)
[2018-05-10] MEDS: LUBIPROSTONE 24 MCG CAP PO (21:04)
[2018-05-10] MEDS: DOCUSATE SODIUM 100 MG CAP PO (21:05)
[2018-05-10] MEDS: FERROUS SULFATE (EC) 325 MG TAB PO (21:05)
[2018-05-11] MEDS: LORAZEPAM 2 MG INJ IV ×3 (00:28→17:33)
[2018-05-11] MEDS: GUAIFENESIN/CODEINE 5ML CUP PO ×2 (00:28→08:50)
[2018-05-11] MEDS: LEVALBUTEROL (NEB) 0.63 MG/3 ML AMP HHN (00:31)
[2018-05-11] MEDS: BUMETANIDE 1 MG TAB PO ×2 (06:15→17:32)
[2018-05-11] MEDS: LEVOTHYROXINE 100 MCG TAB PO (06:15)
[2018-05-11] MEDS: PANTOPRAZOLE (EC) 40 MG TAB PO (06:15)
[2018-05-11 08:36] LABS: WHITE BLOOD COUNT 16.3 10^3/ul (4.8-10.8)
[2018-05-11 08:36] LABS: ABNORMAL IP MESSAGE 1; HEMATOCRIT 23.5 % (42.0-52.0); HEMOGLOBIN 7.3 g/dl (14.0-18.0); MEAN CORPUSCULAR HEMOGLOBIN 26.2 pg (29.0-33.0); MEAN CORPUSCULAR HGB CONC 31.1 g/dl (32.0-37.0); MEAN CORPUSCULAR VOLUME 84.2 fl (82.0-101.0); NUCLEATED RED BLOOD CELLS% 0.8 /100WBC (0.0-0.0); PLATELET COUNT 162 10^3/UL (140-415); POSITIVE DIFF @See below; RED BLOOD COUNT 2.79 10^6/ul (4.70-6.10); RED CELL DISTRIBUTION WIDTH 23.2 % (11.5-14.5)
[2018-05-11 08:38] LABS: ADD MAN DIFF? YES
[2018-05-11] MEDS: HYDROmorphONE 2 MG/ML SYG IV ×4 (08:51→20:26)
[2018-05-11] MEDS: FERROUS SULFATE (EC) 325 MG TAB PO ×2 (08:52→20:25)
[2018-05-11] MEDS: LUBIPROSTONE 24 MCG CAP PO ×2 (08:52→20:25)
[2018-05-11] MEDS: CITRIC ACID/NA CITRATE 30 ML CUP PO ×2 (08:52→20:24)
[2018-05-11] MEDS: NIFEdipine (XL) 60 MG TAB PO (08:53)
[2018-05-11] MEDS: ALLOPURINOL 100 MG TAB PO (08:53)
[2018-05-11] MEDS: SPIRONOLACTONE 25 MG TAB PO (08:53)
[2018-05-11] MEDS: METOPROLOL (XL) 50 MG TAB PO (08:54)
[2018-05-11] MEDS: METOPROLOL (XL) 25 MG TAB PO (08:54)
[2018-05-11 08:59] LABS: ANION GAP 14 (8-16); BLOOD UREA NITROGEN 63 mg/dl (7-20); CALCIUM 7.5 mg/dl (8.4-10.2); CARBON DIOXIDE 23 mmol/L (21-31); CHLORIDE 107 mmol/L (97-110); CREATININE 1.62 mg/dl (0.61-1.24); GLUCOSE 86 mg/dl (70-220); POTASSIUM 4.2 mmol/L (3.5-5.1); SODIUM 140 mmol/L (135-144)
[2018-05-11 09:17] LABS: ANISOCYTOSIS 2+ (0-0); BASOPHIL #M 0.1 10^3/ul (0.0-0.0); BASOPHILS % (M) 1 % (0-2); BURR CELLS 1+ (0-0); EOSINOPHILS % (M) 1 % (0-7); GIANT THROMBO% (M) 1 % (0-0); LYMPHOCYTES #M 1.3 10^3/ul (0.8-2.9); LYMPHOCYTES % (M) 8 % (15-51); METAMYELOCYTES #M 0.6 10^3/ul (0.0-0.0); METAMYELOCYTES %M 4 % (0-0); MICROCYTOSIS 1+ (0-0); MONOCYTE #M 0.9 10^3/ul (0.3-0.9); MONOCYTES % (M) 6 % (0-11); MYELOCYTES #M 0.4 10^3/ul (0.0-0.0); MYELOCYTES % (M) 3 % (0-0); PLATELET ESTIMATE NORMAL; POIKILOCYTOSIS 1+ (0-0); POLYCHROMASIA 2+ (0-0); REACTIVE LYMPHOCYTES #M 0.1 10^3/ul (0.0-0.0); REACTIVE LYMPHOCYTES% (M) 1 % (0-0); SEGMENTED NEUTROPHILS (M) % 76 % (39-77); SMUDGE%M 31 % (0-0); TARGET CELLS 1+ (0-0)
[2018-05-11] MEDS: ERTAPENEM SODIUM 1 GM in SOD CHLORIDE 0.9% 100 ML IVPB (14:00)
[2018-05-11 15:47] LABS: IMMEDIATE SPIN CROSSMATCH 1 4
[2018-05-11] MEDS: EPOETIN 10000 UNITS/1 ML INJ (ESRD) SC (17:33)
[2018-05-11 18:55] LABS: TROPONIN-I < 0.012 ng/ml (0.000-0.120)
[2018-05-11] MEDS: DOCUSATE SODIUM 100 MG CAP PO (20:25)
[2018-05-11] MEDS: SOD CHLORIDE 0.9% IVPB (20:39)
[2018-05-11] MEDS: DAPTOMYCIN IVPB (20:39)
[2018-05-12] MEDS: LORAZEPAM 2 MG INJ IV ×3 (00:24→21:09)
[2018-05-12 01:37] LABS: TROPONIN-I < 0.012 ng/ml (0.000-0.120)
[2018-05-12] MEDS: LEVOTHYROXINE 100 MCG TAB PO (05:56)
[2018-05-12] MEDS: PANTOPRAZOLE (EC) 40 MG TAB PO (05:56)
[2018-05-12] MEDS: HYDROmorphONE 2 MG/ML SYG IV ×2 (05:56→10:14)
[2018-05-12] MEDS: BUMETANIDE 1 MG TAB PO (05:56)
[2018-05-12 06:42] LABS: CREATINE KINASE 172 IU/L (23-200)
[2018-05-12] MEDS: SPIRONOLACTONE 25 MG TAB PO (09:01)
[2018-05-12] MEDS: FERROUS SULFATE (EC) 325 MG TAB PO ×2 (09:01→21:09)
[2018-05-12] MEDS: ALLOPURINOL 100 MG TAB PO (09:01)
[2018-05-12] MEDS: LUBIPROSTONE 24 MCG CAP PO ×2 (09:01→21:09)
[2018-05-12] MEDS: CITRIC ACID/NA CITRATE 30 ML CUP PO ×2 (09:01→21:08)
[2018-05-12] MEDS: METOPROLOL (XL) 50 MG TAB PO (09:02)
[2018-05-12] MEDS: NIFEdipine (XL) 60 MG TAB PO (09:02)
[2018-05-12] MEDS ORDERED: LACTULOSE 30ML CUP PO (14:00)
[2018-05-12 14:36] LABS: WHITE BLOOD COUNT 16.3 10^3/ul (4.8-10.8)
[2018-05-12 14:36] LABS: ABNORMAL IP MESSAGE 1; HEMATOCRIT 29.3 % (42.0-52.0); MEAN CORPUSCULAR HEMOGLOBIN 25.7 pg (29.0-33.0); MEAN CORPUSCULAR HGB CONC 30.7 g/dl (32.0-37.0); MEAN CORPUSCULAR VOLUME 83.7 fl (82.0-101.0); NUCLEATED RED BLOOD CELLS% 1.1 /100WBC (0.0-0.0); PLATELET COUNT 142 10^3/UL (140-415); POSITIVE DIFF @See below; RED CELL DISTRIBUTION WIDTH 23.9 % (11.5-14.5)
[2018-05-12 14:52] LABS: AMMONIA 27 umol/l (9-30)
[2018-05-12 14:55] LABS: ADD MAN DIFF? YES
[2018-05-12] MEDS: DEXTROSE 5%-0.45% NACL 1,000 ML IV (15:12)
[2018-05-12 15:46] LABS: Allen Test ACCEPTAB; Arterial Base Excess 1.3 mmol/L (-3.0-3); Arterial Blood Gas Oxygen Sat 94.6 mmHG (95.0-98.0); Arterial COHb 0.6 % (0.0-3.0); Arterial Fraction of Oxyhgb 93.8 % (93.0-99.0); Arterial HCO3 25.1 mmol/L (22.0-26.0); Arterial MetHb 0.2 % (0.0-1.5); Arterial Total Hemglobin 10.2 g/dl (12.0-18.0); Arterial pCO2 36.9 mmhg (35-45); MODE ROOM AIR; Site Right Radial
[2018-05-12] MEDS: ERTAPENEM SODIUM 1 GM in SOD CHLORIDE 0.9% 100 ML IVPB (16:04)
[2018-05-12] MEDS: BUMETANIDE 25 MG in DEXTROSE 5% 150 ML IV (16:05)
[2018-05-12 16:19] LABS: ANISOCYTOSIS 2+ (0-0); BAND NEUTROPHILS #M 0.3 10^3/ul (0.0-0.6); BAND NEUTROPHILS % (M) 2 % (0-4); BASOPHIL #M 0.1 10^3/ul (0.0-0.0); BASOPHILS % (M) 1 % (0-2); EOSINOPHILS % (M) 6 % (0-7); ERYTHROBLAST% (NRBC) (M) 3 % (0-0); GIANT THROMBO% (M) 2 % (0-0); LYMPHOCYTES #M 1.3 10^3/ul (0.8-2.9); LYMPHOCYTES % (M) 8 % (15-51); MICROCYTOSIS 1+ (0-0); MONOCYTE #M 1.3 10^3/ul (0.3-0.9); MONOCYTES % (M) 8 % (0-11); MYELOCYTES #M 0.1 10^3/ul (0.0-0.0); MYELOCYTES % (M) 1 % (0-0); PLATELET ESTIMATE NORMAL; POIKILOCYTOSIS 2+ (0-0); POLYCHROMASIA 2+ (0-0); PROMYELOCYTES #M 0.1 10^3/ul (0-0); PROMYELOCYTES % (M) 1 % (0-0); SEG NEUT #M 11.9 10^3/ul (1.6-7.5); SEGMENTED NEUTROPHILS (M) % 73 % (39-77); SMUDGE%M 5 % (0-0)
[2018-05-12] MEDS: HYDROmorphONE 1 MG/ML SYG IV (18:17)
[2018-05-12] MEDS: SOD CHLORIDE 0.9% IVPB (18:20)
[2018-05-12] MEDS: DAPTOMYCIN IVPB (18:20)
[2018-05-12] MEDS: [UNRECOGNIZED DRUG - REMARK] XX (21:00)
[2018-05-12] MEDS: DOCUSATE SODIUM 100 MG CAP PO (21:09)
[2018-05-13] MEDS: HYDROmorphONE 1 MG/ML SYG IV ×2 (00:51→08:38)
[2018-05-13] MEDS: PANTOPRAZOLE (EC) 40 MG TAB PO (05:33)
[2018-05-13] MEDS: LORAZEPAM 2 MG INJ IV (05:33)
[2018-05-13] MEDS: LEVOTHYROXINE 100 MCG TAB PO (05:34)
[2018-05-13 07:05] LABS: ABNORMAL IP MESSAGE 1; HEMOGLOBIN 8.2 g/dl (14.0-18.0); MEAN CORPUSCULAR HEMOGLOBIN 26.5 pg (29.0-33.0); MEAN CORPUSCULAR HGB CONC 31.5 g/dl (32.0-37.0); MEAN CORPUSCULAR VOLUME 84.1 fl (82.0-101.0); NUCLEATED RED BLOOD CELLS% 0.7 /100WBC (0.0-0.0); PLATELET COUNT 134 10^3/UL (140-415); POSITIVE DIFF @See below; RED BLOOD COUNT 3.09 10^6/ul (4.70-6.10)
[2018-05-13 07:05] LABS: WHITE BLOOD COUNT 15.1 10^3/ul (4.8-10.8)
[2018-05-13 07:08] LABS: ADD MAN DIFF? YES
[2018-05-13] MEDS: CITRIC ACID/NA CITRATE 30 ML CUP PO (08:29)
[2018-05-13] MEDS: FERROUS SULFATE (EC) 325 MG TAB PO (08:30)
[2018-05-13] MEDS: SPIRONOLACTONE 50 MG TAB PO (08:30)
[2018-05-13] MEDS: ALLOPURINOL 100 MG TAB PO (08:31)
[2018-05-13] MEDS: METOPROLOL (XL) 50 MG TAB PO (08:31)
[2018-05-13] MEDS: FUROSEMIDE 40 MG TAB PO (08:31)
[2018-05-13] MEDS: LUBIPROSTONE 24 MCG CAP PO (08:32)
[2018-05-13] MEDS: NIFEdipine (XL) 60 MG TAB PO (08:32)
[2018-05-13] MEDS: [UNRECOGNIZED DRUG - REMARK] XX (08:50)
[2018-05-13 08:51] LABS: ANISOCYTOSIS 1+ (0-0); BAND NEUTROPHILS #M 0.6 10^3/ul (0.0-0.6); BAND NEUTROPHILS % (M) 4 % (0-4); BURR CELLS 1+ (0-0); EOSINOPHILS % (M) 2 % (0-7); ERYTHROBLAST% (NRBC) (M) 1 % (0-0); GIANT THROMBO% (M) 2 % (0-0); LYMPHOCYTES #M 0.3 10^3/ul (0.8-2.9); LYMPHOCYTES % (M) 2 % (15-51); MICROCYTOSIS 1+ (0-0); MONOCYTE #M 1.3 10^3/ul (0.3-0.9); MONOCYTES % (M) 9 % (0-11); MYELOCYTES #M 0.3 10^3/ul (0.0-0.0); MYELOCYTES % (M) 2 % (0-0); PLATELET ESTIMATE DECREASED; POIKILOCYTOSIS 1+ (0-0); POLYCHROMASIA 1+ (0-0); SEG NEUT #M 12.3 10^3/ul (1.6-7.5); SEGMENTED NEUTROPHILS (M) % 81 % (39-77); SMUDGE%M 82 % (0-0); SPHEROCYTES 1+ (0-0)
[2018-05-13] MEDS: LIDOCAINE 1% (MPF) 5 ML VIAL (10:42)
[2018-05-13] MEDS ORDERED: EPOETIN 10000 UNITS/ML (NON ESRD/NON ONCOLOGY) SC (17:00)
== END 2018-05-13 13:50 | disposition left against medical advice (07) | DRG 871 ==
LOC: 2NE 05-12 13:40 → E/R 06:20 → 2NE 05-12 19:53 → TEL 08:11
PROC: 30233N1 Transfusion of Nonautologous Red Blood Cells into Peripheral Vein, Percutaneous Approach (ICD-10-PCS; 2018-05-10)
PROC: 0W9G3ZZ Drainage of Peritoneal Cavity, Percutaneous Approach (ICD-10-PCS; principal; 2018-05-13)
DX: A41.9 Sepsis, unspecified organism (principal); I50.33 Acute on chronic diastolic (congestive) heart failure; L03.116 Cellulitis of left lower limb; L03.115 Cellulitis of right lower limb; M86.9 Osteomyelitis, unspecified; I13.0 Hypertensive heart and chronic kidney disease with heart failure and stage 1 through stage 4 chronic kidney disease, or unspecified chronic kidney disease; N17.9 Acute kidney failure, unspecified; F10.288 Alcohol dependence with other alcohol-induced disorder; E11.69 Type 2 diabetes mellitus with other specified complication; K70.31 Alcoholic cirrhosis of liver with ascites; N18.9 Chronic kidney disease, unspecified; Z91.19 Patient's noncompliance with other medical treatment and regimen; D64.9 Anemia, unspecified; L97.529 Non-pressure chronic ulcer of other part of left foot with unspecified severity; J44.9 Chronic obstructive pulmonary disease, unspecified; K80.20 Calculus of gallbladder without cholecystitis without obstruction; E11.621 Type 2 diabetes mellitus with foot ulcer; F17.200 Nicotine dependence, unspecified, uncomplicated; I25.10 Atherosclerotic heart disease of native coronary artery without angina pectoris; E66.9 Obesity, unspecified; N40.0 Benign prostatic hyperplasia without lower urinary tract symptoms; Z68.31 Body mass index [BMI] 31.0-31.9, adult
CPT/HCPCS: 36430; 36600; 71045; 76705; 80048; 80053; 80307; 81003; 82140; 82150; 82550; 82803; 83605; 83690; 83880; 84484; 85025; 85610; 85730; 86850; 86900; 86901; 86920; 87040; 87086; 93005; 93970; 96374; 96375; 99291-25

== ENCOUNTER 2018-05-14 09:13 | Inpatient (IN) | payer BC ==
[2018-05-14 10:12] LABS: ABNORMAL IP MESSAGE 1; HEMATOCRIT 29.9 % (42.0-52.0); HEMOGLOBIN 9.5 g/dl (14.0-18.0); MEAN CORPUSCULAR HEMOGLOBIN 26.8 pg (29.0-33.0); MEAN CORPUSCULAR HGB CONC 31.8 g/dl (32.0-37.0); MEAN CORPUSCULAR VOLUME 84.5 fl (82.0-101.0); NUCLEATED RED BLOOD CELLS% 0.3 /100WBC (0.0-0.0); PLATELET COUNT 143 10^3/UL (140-415); POSITIVE DIFF @See below; RED BLOOD COUNT 3.54 10^6/ul (4.70-6.10); RED CELL DISTRIBUTION WIDTH 24.3 % (11.5-14.5)
[2018-05-14 10:12] LABS: WHITE BLOOD COUNT 15.3 10^3/ul (4.8-10.8)
[2018-05-14 10:15] LABS: ADD MAN DIFF? YES
[2018-05-14 10:29] LABS: ALANINE AMINOTRANSFERASE 33 IU/L (13-69); ALBUMIN 2.9 g/dl (3.3-4.9); ALKALINE PHOSPHATASE 196 IU/L (42-121); ANION GAP 14 (8-16); ASPARTATE AMINO TRANSFERASE 55 IU/L (15-46); BILIRUBIN,INDIRECT 0.6 mg/dl (0-1.1); BILIRUBIN,TOTAL 0.6 mg/dl (0.2-1.3); BLOOD UREA NITROGEN 38 mg/dl (7-20); CALCIUM 8.2 mg/dl (8.4-10.2); CARBON DIOXIDE 28 mmol/L (21-31); CHLORIDE 99 mmol/L (97-110); CREATININE 1.63 mg/dl (0.61-1.24); GLUCOSE 91 mg/dl (70-220); POTASSIUM 3.1 mmol/L (3.5-5.1); SODIUM 138 mmol/L (135-144); TOTAL PROTEIN 5.8 g/dl (6.1-8.1)
[2018-05-14 10:30] LABS: AMMONIA < 9 umol/l (9-30)
[2018-05-14 10:38] LABS: PARTIAL THROMBOPLASTIN TIME 33.8 Sec (23.0-35.0); PROTIME 15.4 Sec (11.9-14.9); PT RATIO 1.2
[2018-05-14 10:40] LABS: TROPONIN-I < 0.012 ng/ml (0.000-0.120)
[2018-05-14 10:51] LABS: ANISOCYTOSIS 1+ (0-0); BAND NEUTROPHILS #M 0.1 10^3/ul (0.0-0.6); BAND NEUTROPHILS % (M) 1 % (0-4); BASOPHIL #M 0.1 10^3/ul (0.0-0.0); BASOPHILS % (M) 1 % (0-2); BURR CELLS 1+ (0-0); ELLIPTO 1+ (0-0); EOSINOPHILS % (M) 2 % (0-7); ERYTHROBLAST% (NRBC) (M) 1 % (0-0); GIANT THROMBO% (M) 1 % (0-0); HYPOCHROMASIA 1+ (0-0); LYMPHOCYTES #M 0.6 10^3/ul (0.8-2.9); LYMPHOCYTES % (M) 4 % (15-51); METAMYELOCYTES #M 0.3 10^3/ul (0.0-0.0); METAMYELOCYTES %M 2 % (0-0); MICROCYTOSIS 1+ (0-0); MONOCYTE #M 2.1 10^3/ul (0.3-0.9); MONOCYTES % (M) 14 % (0-11); PLATELET ESTIMATE NORMAL; POIKILOCYTOSIS 1+ (0-0); POLYCHROMASIA 1+ (0-0); PROMYELOCYTES #M 0.1 10^3/ul (0-0); PROMYELOCYTES % (M) 1 % (0-0); REACTIVE LYMPHOCYTES #M 0.1 10^3/ul (0.0-0.0); REACTIVE LYMPHOCYTES% (M) 1 % (0-0); SEG NEUT #M 11.3 10^3/ul (1.6-7.5); SEGMENTED NEUTROPHILS (M) % 74 % (39-77); SMUDGE%M 8 % (0-0); TARGET CELLS 1+ (0-0)
[2018-05-14] MEDS ORDERED: ONDANSETRON 4 MG INJ IV (11:30)
[2018-05-14] MEDS ORDERED: ACETAMINOPHEN 325 MG TAB PO (11:30)
[2018-05-14 12:28] LABS: ADD UMIC NO; UR ASCORBIC ACID NEGATIVE (NEGATIVE); UR BILIRUBIN (Dip) NEGATIVE (NEGATIVE); UR BLOOD (Dip) NEGATIVE (NEGATIVE); UR CLARITY CLEAR (CLEAR); UR COLOR YELLOW (YELLOW); UR GLUCOSE (Dip) NEGATIVE (NEGATIVE); UR KETONES (Dip) NEGATIVE (NEGATIVE); UR LEUKOCYTE ESTERASE (Dip) NEGATIVE Leu/ul (NEGATIVE); UR NITRITE (Dip) NEGATIVE (NEGATIVE); UR SPECIFIC GRAVITY (Dip) 1.009 (1.003-1.030); UR TOTAL PROTEIN (Dip) NEGATIVE (NEGATIVE); UR UROBILINOGEN (Dip) NEGATIVE (NEGATIVE)
[2018-05-14] MEDS: ALBUTEROL HFA 8 GM INHALER INH ×2 (17:00→21:00)
[2018-05-14] MEDS: BUMETANIDE 1 MG TAB PO (18:00)
[2018-05-14] MEDS: [UNRECOGNIZED DRUG - REMARK] XX (21:00)
[2018-05-14] MEDS: DOCUSATE SODIUM 100 MG CAP PO (21:39)
[2018-05-14] MEDS: CITRIC ACID/NA CITRATE 30 ML CUP PO (21:39)
[2018-05-14] MEDS: FERROUS SULFATE (EC) 325 MG TAB PO (21:39)
[2018-05-14] MEDS: ERTAPENEM SODIUM 1 GM in SOD CHLORIDE 0.9% 100 ML IVPB (21:40)
[2018-05-14] MEDS: HYDROCODONE/APAP (10/325) TAB PO (21:42)
[2018-05-14] MEDS: POTASSIUM CHLORIDE 40 MEQ in SOD CHLORIDE 0.45% 1,000 ML IV (21:42)
[2018-05-14] MEDS: DAPTOMYCIN 600 MG in SOD CHLORIDE 0.9% 100 ML IVPB (23:01)
[2018-05-15] MEDS: ALBUTEROL HFA 8 GM INHALER INH ×5 (01:00→17:00)
[2018-05-15] MEDS: [UNRECOGNIZED DRUG - REMARK] XX (05:00)
[2018-05-15] MEDS: BUMETANIDE 1 MG TAB PO (06:00)
[2018-05-15] MEDS: PANTOPRAZOLE (EC) 40 MG TAB PO (06:09)
[2018-05-15] MEDS: LEVOTHYROXINE 100 MCG TAB PO (06:09)
[2018-05-15] MEDS: HYDROCODONE/APAP (10/325) TAB PO ×4 (07:42→21:52)
[2018-05-15] MEDS: ALBUTEROL/IPRATROPIUM (NEB) 3 ML AMP HHN ×3 (09:25→19:58)
[2018-05-15] MEDS: FERROUS SULFATE (EC) 325 MG TAB PO ×2 (09:39→20:00)
[2018-05-15] MEDS: ALLOPURINOL 100 MG TAB PO (09:39)
[2018-05-15] MEDS: METOPROLOL (XL) 50 MG TAB PO (09:39)
[2018-05-15] MEDS: NIFEdipine (XL) 60 MG TAB PO (09:39)
[2018-05-15] MEDS: CITRIC ACID/NA CITRATE 30 ML CUP PO ×2 (09:40→20:00)
[2018-05-15] MEDS: SPIRONOLACTONE 50 MG TAB PO (09:40)
[2018-05-15] MEDS: FUROSEMIDE 40 MG TAB PO (10:27)
[2018-05-15] MEDS: POTASSIUM CHLORIDE 40 MEQ in SOD CHLORIDE 0.45% 1,000 ML IV (11:48)
[2018-05-15] MEDS: BUMETANIDE 12 MG in DEXTROSE 5% 72 ML IV (11:48)
[2018-05-15] MEDS: INFLUENZA VIRUS VACCINE 0.5 ML (DISPENSING) IM* (13:44)
[2018-05-15 14:24] LABS: ADD MAN DIFF? NO
[2018-05-15 14:28] LABS: ABNORMAL IP MESSAGE 1; BASOPHIL # 0.1 10^3/ul (0.0-0.1); BASOPHILS % 0.7 % (0.0-2.0); EOSINOPHILS # 0.2 10^3/ul (0.0-0.5); EOSINOPHILS % 2.1 % (0.0-7.0); HEMATOCRIT 31.5 % (42.0-52.0); HEMOGLOBIN 9.6 g/dl (14.0-18.0); LYMPHOCYTES % 8.9 % (15.0-51.0); MEAN CORPUSCULAR HEMOGLOBIN 26.1 pg (29.0-33.0); MEAN CORPUSCULAR HGB CONC 30.5 g/dl (32.0-37.0); MEAN CORPUSCULAR VOLUME 85.6 fl (82.0-101.0); MONOCYTE # 1.7 10^3/ul (0.3-0.9); NEUTROPHIL # 7.5 10^3/ul (1.6-7.5); NEUTROPHILS % 66.7 % (39.0-77.0); NUCLEATED RED BLOOD CELLS # 0.1 10^3/ul (0.0-0.0); NUCLEATED RED BLOOD CELLS% 0.4 /100WBC (0.0-0.0); PLATELET COUNT 138 10^3/UL (140-415); POSITIVE DIFF @See below; RED BLOOD COUNT 3.68 10^6/ul (4.70-6.10); RED CELL DISTRIBUTION WIDTH 24.6 % (11.5-14.5)
[2018-05-15 14:28] LABS: WHITE BLOOD COUNT 11.2 10^3/ul (4.8-10.8)
[2018-05-15 14:55] LABS: ALANINE AMINOTRANSFERASE 18 IU/L (13-69); ALBUMIN/GLOBULIN RATIO 1.15; ALKALINE PHOSPHATASE 181 IU/L (42-121); ANION GAP 13 (8-16); ASPARTATE AMINO TRANSFERASE 43 IU/L (15-46); BILIRUBIN,INDIRECT 0.3 mg/dl (0-1.1); BILIRUBIN,TOTAL 0.3 mg/dl (0.2-1.3); BLOOD UREA NITROGEN 33 mg/dl (7-20); CALCIUM 7.6 mg/dl (8.4-10.2); CARBON DIOXIDE 24 mmol/L (21-31); CHLORIDE 106 mmol/L (97-110); GLUCOSE 136 mg/dl (70-220); POTASSIUM 3.8 mmol/L (3.5-5.1); SODIUM 139 mmol/L (135-144); TOTAL PROTEIN 5.6 g/dl (6.1-8.1)
[2018-05-15 15:26] LABS: AMMONIA 36 umol/l (9-30)
[2018-05-15 17:21] LABS: ANISOCYTOSIS 1+ (0-0); BAND NEUTROPHILS #M 0.2 10^3/ul (0.0-0.6); BAND NEUTROPHILS % (M) 2 % (0-4); BASOPHIL #M 0.1 10^3/ul (0.0-0.0); BASOPHILS % (M) 1 % (0-2); EOSINOPHILS % (M) 2 % (0-7); ERYTHROBLAST% (NRBC) (M) 1 % (0-0); LYMPHOCYTES #M 0.8 10^3/ul (0.8-2.9); LYMPHOCYTES % (M) 8 % (15-51); METAMYELOCYTES #M 0.3 10^3/ul (0.0-0.0); METAMYELOCYTES %M 3 % (0-0); MICROCYTOSIS 1+ (0-0); MONOCYTE #M 0.4 10^3/ul (0.3-0.9); MONOCYTES % (M) 4 % (0-11); MYELOCYTES #M 0.3 10^3/ul (0.0-0.0); MYELOCYTES % (M) 3 % (0-0); PLATELET MORPHOLOGY COMMENT @See below; POLYCHROMASIA 1+ (0-0); SEG NEUT #M 8.6 10^3/ul (1.6-7.5); SEGMENTED NEUTROPHILS (M) % 77 % (39-77); SMUDGE%M 5 % (0-0)
[2018-05-15] MEDS: LACTULOSE 30ML CUP PO (17:41)
[2018-05-15] MEDS: SODIUM HYPOCHLORITE (1/40) 1 APPLIC BTL IRR (19:59)
[2018-05-15] MEDS: POVIDONE IODINE 10% 28.4 GM OINT TOP (19:59)
[2018-05-15] MEDS: DOCUSATE SODIUM 100 MG CAP PO (20:00)
[2018-05-15] MEDS: HYDROmorphONE 0.5 MG/0.5 ML SYG IV (22:57)
[2018-05-16] MEDS: ERTAPENEM SODIUM 1 GM in SOD CHLORIDE 0.9% 100 ML IVPB ×2 (01:07→20:58)
[2018-05-16] MEDS: POTASSIUM CHLORIDE 40 MEQ in SOD CHLORIDE 0.45% 1,000 ML IV ×2 (02:06→12:57)
[2018-05-16] MEDS: DAPTOMYCIN 600 MG in SOD CHLORIDE 0.9% 100 ML IVPB ×2 (02:21→22:03)
[2018-05-16] MEDS: HYDROCODONE/APAP (10/325) TAB PO ×4 (02:22→20:57)
[2018-05-16] MEDS: HYDROmorphONE 0.5 MG/0.5 ML SYG IV ×2 (04:48→11:15)
[2018-05-16] MEDS: PANTOPRAZOLE (EC) 40 MG TAB PO (06:23)
[2018-05-16] MEDS: LEVOTHYROXINE 100 MCG TAB PO (06:23)
[2018-05-16] MEDS: LACTULOSE 30ML CUP PO ×3 (08:00→20:57)
[2018-05-16] MEDS: ALBUTEROL/IPRATROPIUM (NEB) 3 ML AMP HHN ×3 (08:07→20:00)
[2018-05-16 08:42] LABS: ALANINE AMINOTRANSFERASE 23 IU/L (13-69); ALBUMIN/GLOBULIN RATIO 1.15; ALKALINE PHOSPHATASE 175 IU/L (42-121); ANION GAP 11 (8-16); ASPARTATE AMINO TRANSFERASE 44 IU/L (15-46); BILIRUBIN,INDIRECT 0.3 mg/dl (0-1.1); BILIRUBIN,TOTAL 0.3 mg/dl (0.2-1.3); BLOOD UREA NITROGEN 32 mg/dl (7-20); CALCIUM 7.6 mg/dl (8.4-10.2); CARBON DIOXIDE 27 mmol/L (21-31); CHLORIDE 104 mmol/L (97-110); CREATININE 1.41 mg/dl (0.61-1.24); GLUCOSE 87 mg/dl (70-220); POTASSIUM 3.7 mmol/L (3.5-5.1); SODIUM 138 mmol/L (135-144); TOTAL PROTEIN 5.6 g/dl (6.1-8.1)
[2018-05-16] MEDS: FERROUS SULFATE (EC) 325 MG TAB PO ×2 (09:07→20:58)
[2018-05-16] MEDS: SPIRONOLACTONE 50 MG TAB PO (09:07)
[2018-05-16] MEDS: CITRIC ACID/NA CITRATE 30 ML CUP PO ×2 (09:07→20:57)
[2018-05-16] MEDS: ALLOPURINOL 100 MG TAB PO (09:08)
[2018-05-16] MEDS: FUROSEMIDE 40 MG TAB PO (09:08)
[2018-05-16] MEDS: SODIUM HYPOCHLORITE (1/40) 1 APPLIC BTL IRR (09:09)
[2018-05-16] MEDS: NICOTINE (14 MG/24 HR) PATCH TRANSDERM (09:09)
[2018-05-16] MEDS: POVIDONE IODINE 10% 28.4 GM OINT TOP (09:09)
[2018-05-16] MEDS: METOPROLOL (XL) 50 MG TAB PO (09:09)
[2018-05-16] MEDS: NIFEdipine (XL) 60 MG TAB PO (09:09)
[2018-05-16 09:22] LABS: ABNORMAL IP MESSAGE 1; HEMATOCRIT 31.1 % (42.0-52.0); HEMOGLOBIN 9.4 g/dl (14.0-18.0); MEAN CORPUSCULAR HEMOGLOBIN 26.1 pg (29.0-33.0); MEAN CORPUSCULAR HGB CONC 30.2 g/dl (32.0-37.0); MEAN CORPUSCULAR VOLUME 86.4 fl (82.0-101.0); NUCLEATED RED BLOOD CELLS% 0.5 /100WBC (0.0-0.0); PLATELET COUNT 123 10^3/UL (140-415); POSITIVE DIFF @See below; RED CELL DISTRIBUTION WIDTH 24.3 % (11.5-14.5)
[2018-05-16 09:22] LABS: WHITE BLOOD COUNT 9.6 10^3/ul (4.8-10.8)
[2018-05-16 09:38] LABS: ADD MAN DIFF? YES
[2018-05-16 10:30] LABS: ANISOCYTOSIS 1+ (0-0); BAND NEUTROPHILS #M 0.3 10^3/ul (0.0-0.6); BAND NEUTROPHILS % (M) 4 % (0-4); BASOPHIL #M 0.2 10^3/ul (0.0-0.0); BASOPHILS % (M) 3 % (0-2); BURR CELLS 1+ (0-0); EOSINOPHILS % (M) 1 % (0-7); GIANT THROMBO% (M) 2 % (0-0); HYPOCHROMASIA 1+ (0-0); LYMPHOCYTES #M 0.8 10^3/ul (0.8-2.9); LYMPHOCYTES % (M) 9 % (15-51); MICROCYTOSIS 1+ (0-0); MONOCYTE #M 0.6 10^3/ul (0.3-0.9); MONOCYTES % (M) 7 % (0-11); MYELOCYTES % (M) 1 % (0-0); PLATELET ESTIMATE DECREASED; POIKILOCYTOSIS 1+ (0-0); POLYCHROMASIA 1+ (0-0); PROMYELOCYTES #M 0.1 10^3/ul (0-0); PROMYELOCYTES % (M) 2 % (0-0); SEGMENTED NEUTROPHILS (M) % 73 % (39-77); SMUDGE%M 83 % (0-0); TARGET CELLS 1+ (0-0)
[2018-05-16] MEDS: BUMETANIDE 12 MG in DEXTROSE 5% 72 ML IV (12:00)
[2018-05-16] MEDS: LORAZEPAM 1 MG TAB PO (15:30)
[2018-05-16] MEDS: DOCUSATE SODIUM 100 MG CAP PO (20:58)
[2018-05-17] MEDS: HYDROmorphONE 0.5 MG/0.5 ML SYG IV ×4 (00:09→18:50)
[2018-05-17 01:24] LABS: TROPONIN-I < 0.012 ng/ml (0.000-0.120)
[2018-05-17] MEDS: HYDROCODONE/APAP (10/325) TAB PO ×5 (03:40→23:57)
[2018-05-17] MEDS: PANTOPRAZOLE (EC) 40 MG TAB PO (03:40)
[2018-05-17] MEDS: LACTULOSE 30ML CUP PO ×3 (03:40→21:50)
[2018-05-17 05:37] LABS: ABNORMAL IP MESSAGE 1; HEMATOCRIT 28.3 % (42.0-52.0); HEMOGLOBIN 8.7 g/dl (14.0-18.0); MEAN CORPUSCULAR HGB CONC 30.7 g/dl (32.0-37.0); MEAN CORPUSCULAR VOLUME 84.5 fl (82.0-101.0); NUCLEATED RED BLOOD CELLS% 0.2 /100WBC (0.0-0.0); PLATELET COUNT 125 10^3/UL (140-415); POSITIVE DIFF @See below; RED BLOOD COUNT 3.35 10^6/ul (4.70-6.10); RED CELL DISTRIBUTION WIDTH 24.5 % (11.5-14.5)
[2018-05-17 05:37] LABS: WHITE BLOOD COUNT 10.1 10^3/ul (4.8-10.8)
[2018-05-17 05:39] LABS: ADD MAN DIFF? YES
[2018-05-17] MEDS: POTASSIUM CHLORIDE 40 MEQ in SOD CHLORIDE 0.45% 1,000 ML IV (05:43)
[2018-05-17] MEDS: LEVOTHYROXINE 100 MCG TAB PO (05:47)
[2018-05-17 06:06] LABS: TROPONIN-I < 0.012 ng/ml (0.000-0.120)
[2018-05-17 06:10] LABS: ANION GAP 12 (8-16); BLOOD UREA NITROGEN 32 mg/dl (7-20); CALCIUM 7.4 mg/dl (8.4-10.2); CARBON DIOXIDE 27 mmol/L (21-31); CHLORIDE 103 mmol/L (97-110); CREATININE 1.53 mg/dl (0.61-1.24); GLUCOSE 99 mg/dl (70-220); POTASSIUM 3.9 mmol/L (3.5-5.1); SODIUM 138 mmol/L (135-144)
[2018-05-17 07:04] LABS: ANISOCYTOSIS 1+ (0-0); BAND NEUTROPHILS #M 0.3 10^3/ul (0.0-0.6); BAND NEUTROPHILS % (M) 3 % (0-4); BASOPHIL #M 0.5 10^3/ul (0.0-0.0); BASOPHILS % (M) 5 % (0-2); EOSINOPHILS % (M) 3 % (0-7); GIANT THROMBO% (M) 1 % (0-0); LYMPHOCYTES #M 1.3 10^3/ul (0.8-2.9); LYMPHOCYTES % (M) 13 % (15-51); METAMYELOCYTES #M 0.4 10^3/ul (0.0-0.0); METAMYELOCYTES %M 4 % (0-0); MICROCYTOSIS 1+ (0-0); MONOCYTE #M 0.6 10^3/ul (0.3-0.9); MONOCYTES % (M) 6 % (0-11); MYELOCYTES #M 0.1 10^3/ul (0.0-0.0); MYELOCYTES % (M) 1 % (0-0); OVALOCYTES 1+ (0-0); PLATELET ESTIMATE DECREASED; POIKILOCYTOSIS 1+ (0-0); POLYCHROMASIA 3+ (0-0); PROMYELOCYTES #M 0.1 10^3/ul (0-0); PROMYELOCYTES % (M) 1 % (0-0); REACTIVE LYMPHOCYTES #M 0.2 10^3/ul (0.0-0.0); REACTIVE LYMPHOCYTES% (M) 2 % (0-0); SEG NEUT #M 6.3 10^3/ul (1.6-7.5); SEGMENTED NEUTROPHILS (M) % 62 % (39-77); SMUDGE%M 9 % (0-0); SPHEROCYTES 1+ (0-0); TEAR DROP CELLS 1+ (0-0)
[2018-05-17] MEDS: ALBUTEROL/IPRATROPIUM (NEB) 3 ML AMP HHN ×3 (07:56→20:30)
[2018-05-17] MEDS: NICOTINE (14 MG/24 HR) PATCH TRANSDERM (09:50)
[2018-05-17] MEDS: MULTIVITAMINS 10 ML, THIAMINE 100 MG, FOLIC ACID 1 MG in SOD CHLORIDE 0.9% 1,000 ML IVPB (09:50)
[2018-05-17] MEDS: SPIRONOLACTONE 50 MG TAB PO (09:51)
[2018-05-17] MEDS: ALLOPURINOL 100 MG TAB PO (09:51)
[2018-05-17] MEDS: FERROUS SULFATE (EC) 325 MG TAB PO ×2 (09:51→21:51)
[2018-05-17] MEDS: CITRIC ACID/NA CITRATE 30 ML CUP PO ×2 (09:52→21:50)
[2018-05-17] MEDS: SODIUM HYPOCHLORITE (1/40) 1 APPLIC BTL IRR (09:56)
[2018-05-17] MEDS: METOPROLOL (XL) 50 MG TAB PO (09:59)
[2018-05-17] MEDS: NIFEdipine (XL) 60 MG TAB PO (09:59)
[2018-05-17] MEDS: FUROSEMIDE 40 MG TAB PO (09:59)
[2018-05-17] MEDS: LORAZEPAM 2 MG INJ IV ×2 (14:41→21:50)
[2018-05-17] MEDS: POVIDONE IODINE 10% 28.4 GM OINT TOP (15:26)
[2018-05-17] MEDS: BUMETANIDE 1 MG INJ IV (17:45)
[2018-05-17] MEDS: DOCUSATE SODIUM 100 MG CAP PO (21:51)
[2018-05-17] MEDS: ERTAPENEM SODIUM 1 GM in SOD CHLORIDE 0.9% 100 ML IVPB (22:17)
[2018-05-17] MEDS: DAPTOMYCIN 600 MG in SOD CHLORIDE 0.9% 100 ML IVPB (22:42)
[2018-05-18] MEDS: HYDROmorphONE 0.5 MG/0.5 ML SYG IV ×4 (00:54→19:58)
[2018-05-18] MEDS: LORAZEPAM 2 MG INJ IV ×3 (03:52→18:46)
[2018-05-18 06:06] LABS: ADD MAN DIFF? NO
[2018-05-18 06:10] LABS: ABNORMAL IP MESSAGE 1; BASOPHIL # 0.1 10^3/ul (0.0-0.1); EOSINOPHILS # 0.5 10^3/ul (0.0-0.5); EOSINOPHILS % 5.7 % (0.0-7.0); HEMOGLOBIN 8.6 g/dl (14.0-18.0); LYMPHOCYTES # 1.2 10^3/ul (0.8-2.9); LYMPHOCYTES % 12.9 % (15.0-51.0); MEAN CORPUSCULAR HGB CONC 30.7 g/dl (32.0-37.0); MEAN CORPUSCULAR VOLUME 84.6 fl (82.0-101.0); MONOCYTE # 1.6 10^3/ul (0.3-0.9); MONOCYTES % 17.2 % (0.0-11.0); NEUTROPHIL # 5.3 10^3/ul (1.6-7.5); PLATELET COUNT 129 10^3/UL (140-415); POSITIVE DIFF @See below; RED BLOOD COUNT 3.31 10^6/ul (4.70-6.10); RED CELL DISTRIBUTION WIDTH 23.9 % (11.5-14.5)
[2018-05-18] MEDS: HYDROCODONE/APAP (10/325) TAB PO ×4 (06:10→21:07)
[2018-05-18] MEDS: LEVOTHYROXINE 100 MCG TAB PO (06:11)
[2018-05-18] MEDS: PANTOPRAZOLE (EC) 40 MG TAB PO (06:11)
[2018-05-18] MEDS: BUMETANIDE 1 MG INJ IV ×2 (06:13→18:39)
[2018-05-18] MEDS: LACTULOSE 30ML CUP PO ×3 (06:13→19:58)
[2018-05-18 06:42] LABS: ANION GAP 12 (8-16); BLOOD UREA NITROGEN 32 mg/dl (7-20); CALCIUM 7.6 mg/dl (8.4-10.2); CARBON DIOXIDE 27 mmol/L (21-31); CHLORIDE 102 mmol/L (97-110); CREATININE 1.53 mg/dl (0.61-1.24); GLUCOSE 79 mg/dl (70-220); SODIUM 137 mmol/L (135-144)
[2018-05-18] MEDS: POVIDONE IODINE 10% 28.4 GM OINT TOP (08:59)
[2018-05-18] MEDS: SODIUM HYPOCHLORITE (1/40) 1 APPLIC BTL IRR (08:59)
[2018-05-18] MEDS: FUROSEMIDE 40 MG TAB PO (09:00)
[2018-05-18] MEDS: ALLOPURINOL 100 MG TAB PO (09:00)
[2018-05-18] MEDS: CITRIC ACID/NA CITRATE 30 ML CUP PO ×2 (09:00→19:58)
[2018-05-18] MEDS: FERROUS SULFATE (EC) 325 MG TAB PO ×2 (09:00→20:00)
[2018-05-18] MEDS: METOPROLOL (XL) 50 MG TAB PO (09:01)
[2018-05-18] MEDS: NIFEdipine (XL) 60 MG TAB PO (09:01)
[2018-05-18] MEDS: SPIRONOLACTONE 50 MG TAB PO (09:01)
[2018-05-18] MEDS: MULTIVITAMINS 10 ML, THIAMINE 100 MG, FOLIC ACID 1 MG in SOD CHLORIDE 0.9% 1,000 ML IVPB (09:02)
[2018-05-18] MEDS: NICOTINE (14 MG/24 HR) PATCH TRANSDERM (09:03)
[2018-05-18] MEDS: ALBUTEROL/IPRATROPIUM (NEB) 3 ML AMP HHN ×3 (09:48→19:46)
[2018-05-18] MEDS: ERTAPENEM SODIUM 1 GM in SOD CHLORIDE 0.9% 100 ML IVPB (19:59)
[2018-05-18] MEDS: DOCUSATE SODIUM 100 MG CAP PO (20:00)
[2018-05-18] MEDS: DAPTOMYCIN 600 MG in SOD CHLORIDE 0.9% 100 ML IVPB (23:11)
[2018-05-19] MEDS: LORAZEPAM 2 MG INJ IV ×4 (00:49→21:22)
[2018-05-19] MEDS: HYDROCODONE/APAP (10/325) TAB PO ×4 (01:25→19:04)
[2018-05-19] MEDS: HYDROmorphONE 0.5 MG/0.5 ML SYG IV ×3 (02:42→17:50)
[2018-05-19] MEDS: PANTOPRAZOLE (EC) 40 MG TAB PO (05:06)
[2018-05-19] MEDS: LACTULOSE 30ML CUP PO ×3 (05:06→21:22)
[2018-05-19] MEDS: BUMETANIDE 1 MG INJ IV ×2 (05:06→17:50)
[2018-05-19] MEDS: LEVOTHYROXINE 100 MCG TAB PO (05:06)
[2018-05-19 06:49] LABS: CREATINE KINASE 75 IU/L (23-200)
[2018-05-19] MEDS: ALBUTEROL/IPRATROPIUM (NEB) 3 ML AMP HHN ×3 (08:00→20:51)
[2018-05-19] MEDS: ALLOPURINOL 100 MG TAB PO (09:15)
[2018-05-19] MEDS: METOPROLOL (XL) 50 MG TAB PO (09:16)
[2018-05-19] MEDS: FERROUS SULFATE (EC) 325 MG TAB PO ×2 (09:16→21:25)
[2018-05-19] MEDS: NIFEdipine (XL) 60 MG TAB PO (09:16)
[2018-05-19] MEDS: CITRIC ACID/NA CITRATE 30 ML CUP PO ×2 (09:17→21:22)
[2018-05-19] MEDS: MULTIVITAMINS 10 ML, THIAMINE 100 MG, FOLIC ACID 1 MG in SOD CHLORIDE 0.9% 1,000 ML IVPB (09:24)
[2018-05-19] MEDS: SODIUM HYPOCHLORITE (1/40) 1 APPLIC BTL IRR (09:29)
[2018-05-19] MEDS: POVIDONE IODINE 10% 28.4 GM OINT TOP (09:30)
[2018-05-19] MEDS: SPIRONOLACTONE 50 MG TAB PO (12:48)
[2018-05-19] MEDS: NICOTINE (14 MG/24 HR) PATCH TRANSDERM (12:50)
[2018-05-19] MEDS: DOCUSATE SODIUM 100 MG CAP PO (21:24)
[2018-05-19] MEDS: ERTAPENEM SODIUM 1 GM in SOD CHLORIDE 0.9% 100 ML IVPB (21:44)
[2018-05-19] MEDS: DAPTOMYCIN 600 MG in SOD CHLORIDE 0.9% 100 ML IVPB (22:37)
[2018-05-20] MEDS: HYDROmorphONE 0.5 MG/0.5 ML SYG IV ×4 (00:34→23:51)
[2018-05-20] MEDS: HYDROCODONE/APAP (10/325) TAB PO ×5 (02:07→19:49)
[2018-05-20] MEDS: 1/2 NS + KCL 20 MEQ 1,000 ML IV ×2 (02:17)
[2018-05-20] MEDS: LORAZEPAM 2 MG INJ IV ×3 (04:19→18:04)
[2018-05-20 05:49] LABS: ADD MAN DIFF? NO
[2018-05-20 05:59] LABS: WHITE BLOOD COUNT 9.2 10^3/ul (4.8-10.8)
[2018-05-20 05:59] LABS: ABNORMAL IP MESSAGE 1; BASOPHIL # 0.1 10^3/ul (0.0-0.1); BASOPHILS % 1.5 % (0.0-2.0); EOSINOPHILS # 0.4 10^3/ul (0.0-0.5); EOSINOPHILS % 4.7 % (0.0-7.0); HEMATOCRIT 27.9 % (42.0-52.0); HEMOGLOBIN 8.5 g/dl (14.0-18.0); LYMPHOCYTES # 1.2 10^3/ul (0.8-2.9); LYMPHOCYTES % 12.6 % (15.0-51.0); MEAN CORPUSCULAR HEMOGLOBIN 26.1 pg (29.0-33.0); MEAN CORPUSCULAR HGB CONC 30.5 g/dl (32.0-37.0); MEAN CORPUSCULAR VOLUME 85.6 fl (82.0-101.0); MONOCYTE # 1.7 10^3/ul (0.3-0.9); MONOCYTES % 18.3 % (0.0-11.0); NEUTROPHIL # 5.5 10^3/ul (1.6-7.5); NEUTROPHILS % 59.4 % (39.0-77.0); PLATELET COUNT 120 10^3/UL (140-415); POSITIVE DIFF @See below; RED BLOOD COUNT 3.26 10^6/ul (4.70-6.10); RED CELL DISTRIBUTION WIDTH 23.6 % (11.5-14.5)
[2018-05-20] MEDS: LEVOTHYROXINE 100 MCG TAB PO (06:16)
[2018-05-20] MEDS: LACTULOSE 30ML CUP PO ×3 (06:16→21:57)
[2018-05-20] MEDS: BUMETANIDE 1 MG INJ IV ×2 (06:17→18:04)
[2018-05-20] MEDS: PANTOPRAZOLE (EC) 40 MG TAB PO (06:17)
[2018-05-20 06:27] LABS: ANION GAP 11 (8-16); BLOOD UREA NITROGEN 31 mg/dl (7-20); CALCIUM 8.1 mg/dl (8.4-10.2); CARBON DIOXIDE 25 mmol/L (21-31); CHLORIDE 105 mmol/L (97-110); CREATININE 1.56 mg/dl (0.61-1.24); GLUCOSE 77 mg/dl (70-220); POTASSIUM 4.3 mmol/L (3.5-5.1); SODIUM 137 mmol/L (135-144)
[2018-05-20] MEDS: ALLOPURINOL 100 MG TAB PO (08:30)
[2018-05-20] MEDS: FERROUS SULFATE (EC) 325 MG TAB PO ×2 (08:30→19:50)
[2018-05-20] MEDS: SPIRONOLACTONE 50 MG TAB PO (08:30)
[2018-05-20] MEDS: NIFEdipine (XL) 60 MG TAB PO (08:30)
[2018-05-20] MEDS: NICOTINE (14 MG/24 HR) PATCH TRANSDERM (08:31)
[2018-05-20] MEDS: CITRIC ACID/NA CITRATE 30 ML CUP PO ×2 (08:31→19:49)
[2018-05-20] MEDS: METOPROLOL (XL) 50 MG TAB PO (08:31)
[2018-05-20] MEDS: ALBUTEROL/IPRATROPIUM (NEB) 3 ML AMP HHN ×3 (09:55→19:40)
[2018-05-20] MEDS: MULTIVITAMINS 10 ML, THIAMINE 100 MG, FOLIC ACID 1 MG in SOD CHLORIDE 0.9% 1,000 ML IVPB (10:28)
[2018-05-20] MEDS: SODIUM HYPOCHLORITE (1/40) 1 APPLIC BTL IRR (15:24)
[2018-05-20] MEDS: POVIDONE IODINE 10% 28.4 GM OINT TOP (15:24)
[2018-05-20] MEDS: DOCUSATE SODIUM 100 MG CAP PO (19:50)
[2018-05-20] MEDS: ERTAPENEM SODIUM 1 GM in SOD CHLORIDE 0.9% 100 ML IVPB (21:57)
[2018-05-20] MEDS: DAPTOMYCIN 600 MG in SOD CHLORIDE 0.9% 100 ML IVPB (22:05)
[2018-05-21] MEDS: LORAZEPAM 2 MG INJ IV ×4 (00:58→21:21)
[2018-05-21] MEDS: HYDROCODONE/APAP (10/325) TAB PO ×5 (02:19→21:47)
[2018-05-21] MEDS: LACTULOSE 30ML CUP PO ×3 (05:22→21:17)
[2018-05-21] MEDS: PANTOPRAZOLE (EC) 40 MG TAB PO (05:22)
[2018-05-21] MEDS: BUMETANIDE 1 MG INJ IV ×2 (05:22→17:27)
[2018-05-21 06:45] LABS: ADD MAN DIFF? NO
[2018-05-21 06:48] LABS: ABNORMAL IP MESSAGE 1; BASOPHIL # 0.1 10^3/ul (0.0-0.1); BASOPHILS % 1.3 % (0.0-2.0); EOSINOPHILS # 0.2 10^3/ul (0.0-0.5); EOSINOPHILS % 2.3 % (0.0-7.0); HEMATOCRIT 27.6 % (42.0-52.0); HEMOGLOBIN 8.3 g/dl (14.0-18.0); LYMPHOCYTES # 0.9 10^3/ul (0.8-2.9); LYMPHOCYTES % 11.7 % (15.0-51.0); MEAN CORPUSCULAR HEMOGLOBIN 25.6 pg (29.0-33.0); MEAN CORPUSCULAR HGB CONC 30.1 g/dl (32.0-37.0); MEAN CORPUSCULAR VOLUME 85.2 fl (82.0-101.0); MONOCYTE # 1.4 10^3/ul (0.3-0.9); MONOCYTES % 18.9 % (0.0-11.0); NEUTROPHIL # 4.7 10^3/ul (1.6-7.5); PLATELET COUNT 124 10^3/UL (140-415); POSITIVE DIFF @See below; RED BLOOD COUNT 3.24 10^6/ul (4.70-6.10); RED CELL DISTRIBUTION WIDTH 23.3 % (11.5-14.5)
[2018-05-21 06:48] LABS: WHITE BLOOD COUNT 7.5 10^3/ul (4.8-10.8)
[2018-05-21 07:11] LABS: ANION GAP 10 (8-16); BLOOD UREA NITROGEN 29 mg/dl (7-20); CALCIUM 8.1 mg/dl (8.4-10.2); CARBON DIOXIDE 25 mmol/L (21-31); CHLORIDE 107 mmol/L (97-110); CREATININE 1.51 mg/dl (0.61-1.24); GLUCOSE 109 mg/dl (70-220); POTASSIUM 4.2 mmol/L (3.5-5.1); SODIUM 138 mmol/L (135-144)
[2018-05-21] MEDS: ALBUTEROL/IPRATROPIUM (NEB) 3 ML AMP HHN ×4 (08:00→20:00)
[2018-05-21] MEDS: SPIRONOLACTONE 50 MG TAB PO (08:02)
[2018-05-21] MEDS: LEVOTHYROXINE 100 MCG TAB PO (08:02)
[2018-05-21] MEDS: ALLOPURINOL 100 MG TAB PO (08:02)
[2018-05-21] MEDS: FERROUS SULFATE (EC) 325 MG TAB PO ×2 (08:04→21:17)
[2018-05-21] MEDS: METOPROLOL (XL) 50 MG TAB PO (08:04)
[2018-05-21] MEDS: FUROSEMIDE 20 MG TAB PO (08:05)
[2018-05-21] MEDS: NIFEdipine (XL) 60 MG TAB PO (08:05)
[2018-05-21] MEDS: MULTIVITAMINS 10 ML, THIAMINE 100 MG, FOLIC ACID 1 MG in SOD CHLORIDE 0.9% 1,000 ML IVPB (08:06)
[2018-05-21] MEDS: CITRIC ACID/NA CITRATE 30 ML CUP PO ×2 (08:06→21:17)
[2018-05-21] MEDS: NICOTINE (14 MG/24 HR) PATCH TRANSDERM (08:07)
[2018-05-21] MEDS: SODIUM HYPOCHLORITE (1/40) 1 APPLIC BTL IRR (08:07)
[2018-05-21] MEDS: POVIDONE IODINE 10% 28.4 GM OINT TOP (08:08)
[2018-05-21] MEDS: HYDROmorphONE 0.5 MG/0.5 ML SYG IV ×2 (09:18→18:21)
[2018-05-21] MEDS: ERTAPENEM SODIUM 1 GM in SOD CHLORIDE 0.9% 100 ML IVPB (21:17)
[2018-05-21] MEDS: DOCUSATE SODIUM 100 MG CAP PO (21:17)
[2018-05-21] MEDS: DAPTOMYCIN 600 MG in SOD CHLORIDE 0.9% 100 ML IVPB (22:29)
[2018-05-22] MEDS: HYDROmorphONE 0.5 MG/0.5 ML SYG IV ×4 (00:42→23:11)
[2018-05-22] MEDS: LORAZEPAM 2 MG INJ IV ×3 (05:20→19:43)
[2018-05-22] MEDS: LACTULOSE 30ML CUP PO ×3 (05:20→21:37)
[2018-05-22] MEDS: BUMETANIDE 1 MG INJ IV ×2 (05:20→17:22)
[2018-05-22] MEDS: PANTOPRAZOLE (EC) 40 MG TAB PO (05:20)
[2018-05-22] MEDS: HYDROCODONE/APAP (10/325) TAB PO ×4 (06:00→22:12)
[2018-05-22] MEDS: LEVOTHYROXINE 100 MCG TAB PO (06:01)
[2018-05-22] MEDS: ALBUTEROL/IPRATROPIUM (NEB) 3 ML AMP HHN ×3 (08:00→20:00)
[2018-05-22 08:50] LABS: ADD MAN DIFF? NO
[2018-05-22 08:55] LABS: WHITE BLOOD COUNT 8.9 10^3/ul (4.8-10.8)
[2018-05-22 08:55] LABS: ABNORMAL IP MESSAGE 1; BASOPHIL # 0.1 10^3/ul (0.0-0.1); BASOPHILS % 1.4 % (0.0-2.0); EOSINOPHILS # 0.2 10^3/ul (0.0-0.5); EOSINOPHILS % 2.5 % (0.0-7.0); HEMATOCRIT 28.5 % (42.0-52.0); HEMOGLOBIN 8.6 g/dl (14.0-18.0); LYMPHOCYTES # 1.1 10^3/ul (0.8-2.9); LYMPHOCYTES % 12.3 % (15.0-51.0); MEAN CORPUSCULAR HEMOGLOBIN 25.7 pg (29.0-33.0); MEAN CORPUSCULAR HGB CONC 30.2 g/dl (32.0-37.0); MEAN CORPUSCULAR VOLUME 85.3 fl (82.0-101.0); MONOCYTE # 1.6 10^3/ul (0.3-0.9); MONOCYTES % 18.1 % (0.0-11.0); NEUTROPHIL # 5.5 10^3/ul (1.6-7.5); NEUTROPHILS % 61.5 % (39.0-77.0); PLATELET COUNT 168 10^3/UL (140-415); POSITIVE DIFF @See below; RED BLOOD COUNT 3.34 10^6/ul (4.70-6.10); RED CELL DISTRIBUTION WIDTH 23.2 % (11.5-14.5)
[2018-05-22 09:21] LABS: ANION GAP 12 (8-16); BLOOD UREA NITROGEN 30 mg/dl (7-20); CALCIUM 8.3 mg/dl (8.4-10.2); CARBON DIOXIDE 26 mmol/L (21-31); CHLORIDE 105 mmol/L (97-110); CREATININE 1.74 mg/dl (0.61-1.24); GLUCOSE 75 mg/dl (70-220); POTASSIUM 4.4 mmol/L (3.5-5.1); SODIUM 139 mmol/L (135-144)
[2018-05-22] MEDS: FERROUS SULFATE (EC) 325 MG TAB PO ×2 (09:25→21:37)
[2018-05-22] MEDS: SPIRONOLACTONE 50 MG TAB PO (09:26)
[2018-05-22] MEDS: NIFEdipine (XL) 60 MG TAB PO (09:26)
[2018-05-22] MEDS: ALLOPURINOL 100 MG TAB PO (09:26)
[2018-05-22] MEDS: METOPROLOL (XL) 50 MG TAB PO (09:26)
[2018-05-22] MEDS: NICOTINE (14 MG/24 HR) PATCH TRANSDERM (09:27)
[2018-05-22] MEDS: FUROSEMIDE 20 MG TAB PO (09:27)
[2018-05-22] MEDS: CITRIC ACID/NA CITRATE 30 ML CUP PO ×2 (09:27→21:37)
[2018-05-22] MEDS: POVIDONE IODINE 10% 28.4 GM OINT TOP (09:28)
[2018-05-22] MEDS: SODIUM HYPOCHLORITE (1/40) 1 APPLIC BTL IRR (09:28)
[2018-05-22] MEDS: DOCUSATE SODIUM 100 MG CAP PO (21:37)
[2018-05-22] MEDS: DAPTOMYCIN 600 MG in SOD CHLORIDE 0.9% 100 ML IVPB (21:37)
[2018-05-22] MEDS: ERTAPENEM SODIUM 1 GM in SOD CHLORIDE 0.9% 100 ML IVPB (23:09)
[2018-05-23] MEDS: LORAZEPAM 2 MG INJ IV ×4 (02:48→21:45)
[2018-05-23] MEDS: HYDROCODONE/APAP (10/325) TAB PO ×5 (03:37→23:56)
[2018-05-23] MEDS: LEVOTHYROXINE 100 MCG TAB PO (06:24)
[2018-05-23] MEDS: BUMETANIDE 1 MG INJ IV ×2 (06:24→17:41)
[2018-05-23] MEDS: LACTULOSE 30ML CUP PO ×3 (06:24→21:44)
[2018-05-23] MEDS: PANTOPRAZOLE (EC) 40 MG TAB PO (06:24)
[2018-05-23] MEDS: HYDROmorphONE 0.5 MG/0.5 ML SYG IV ×3 (06:24→19:09)
[2018-05-23] MEDS: ALBUTEROL/IPRATROPIUM (NEB) 3 ML AMP HHN ×3 (08:00→19:55)
[2018-05-23 08:09] LABS: ANION GAP 10 (8-16); BLOOD UREA NITROGEN 31 mg/dl (7-20); CALCIUM 8.5 mg/dl (8.4-10.2); CARBON DIOXIDE 26 mmol/L (21-31); CHLORIDE 108 mmol/L (97-110); CREATININE 1.63 mg/dl (0.61-1.24); GLUCOSE 88 mg/dl (70-220); POTASSIUM 4.5 mmol/L (3.5-5.1); SODIUM 139 mmol/L (135-144)
[2018-05-23 08:11] LABS: AMMONIA 17 umol/l (9-30)
[2018-05-23] MEDS: FERROUS SULFATE (EC) 325 MG TAB PO ×2 (08:17→21:45)
[2018-05-23] MEDS: SODIUM HYPOCHLORITE (1/40) 1 APPLIC BTL IRR (08:17)
[2018-05-23] MEDS: ALLOPURINOL 100 MG TAB PO (08:18)
[2018-05-23] MEDS: POVIDONE IODINE 10% 28.4 GM OINT TOP (08:19)
[2018-05-23] MEDS: FUROSEMIDE 20 MG TAB PO (08:24)
[2018-05-23] MEDS: NIFEdipine (XL) 60 MG TAB PO (08:24)
[2018-05-23] MEDS: METOPROLOL (XL) 50 MG TAB PO (08:24)
[2018-05-23] MEDS: CITRIC ACID/NA CITRATE 30 ML CUP PO ×2 (08:25→21:44)
[2018-05-23] MEDS: NICOTINE (14 MG/24 HR) PATCH TRANSDERM (08:35)
[2018-05-23] MEDS: SPIRONOLACTONE 50 MG TAB PO (08:35)
[2018-05-23] MEDS: DOCUSATE SODIUM 100 MG CAP PO (21:45)
[2018-05-24] MEDS: HYDROmorphONE 0.5 MG/0.5 ML SYG IV ×4 (01:56→21:50)
[2018-05-24] MEDS: LORAZEPAM 2 MG INJ IV ×3 (04:51→20:19)
[2018-05-24] MEDS: LACTULOSE 30ML CUP PO ×3 (06:04→21:52)
[2018-05-24] MEDS: PANTOPRAZOLE (EC) 40 MG TAB PO (06:04)
[2018-05-24] MEDS: LEVOTHYROXINE 100 MCG TAB PO (06:04)
[2018-05-24] MEDS: BUMETANIDE 1 MG INJ IV ×2 (06:04→17:21)
[2018-05-24] MEDS: HYDROCODONE/APAP (10/325) TAB PO ×4 (06:07→22:42)
[2018-05-24 07:19] LABS: ADD MAN DIFF? NO
[2018-05-24 07:24] LABS: ABNORMAL IP MESSAGE 1; BASOPHIL # 0.2 10^3/ul (0.0-0.1); BASOPHILS % 1.8 % (0.0-2.0); EOSINOPHILS # 0.1 10^3/ul (0.0-0.5); EOSINOPHILS % 1.1 % (0.0-7.0); HEMATOCRIT 28.6 % (42.0-52.0); HEMOGLOBIN 8.6 g/dl (14.0-18.0); LYMPHOCYTES % 10.3 % (15.0-51.0); MEAN CORPUSCULAR HEMOGLOBIN 25.4 pg (29.0-33.0); MEAN CORPUSCULAR HGB CONC 30.1 g/dl (32.0-37.0); MEAN CORPUSCULAR VOLUME 84.6 fl (82.0-101.0); MONOCYTE # 1.9 10^3/ul (0.3-0.9); MONOCYTES % 20.3 % (0.0-11.0); PLATELET COUNT 187 10^3/UL (140-415); POSITIVE DIFF @See below; RED BLOOD COUNT 3.38 10^6/ul (4.70-6.10); RED CELL DISTRIBUTION WIDTH 23.1 % (11.5-14.5)
[2018-05-24 07:24] LABS: WHITE BLOOD COUNT 9.6 10^3/ul (4.8-10.8)
[2018-05-24 07:55] LABS: ANION GAP 9 (8-16); BLOOD UREA NITROGEN 34 mg/dl (7-20); CALCIUM 8.4 mg/dl (8.4-10.2); CARBON DIOXIDE 27 mmol/L (21-31); CHLORIDE 107 mmol/L (97-110); CREATININE 1.77 mg/dl (0.61-1.24); GLUCOSE 96 mg/dl (70-220); POTASSIUM 4.3 mmol/L (3.5-5.1); SODIUM 139 mmol/L (135-144)
[2018-05-24] MEDS: ALBUTEROL/IPRATROPIUM (NEB) 3 ML AMP HHN ×3 (08:00→19:38)
[2018-05-24] MEDS: CITRIC ACID/NA CITRATE 30 ML CUP PO ×2 (08:40→22:35)
[2018-05-24] MEDS: SPIRONOLACTONE 50 MG TAB PO (08:40)
[2018-05-24] MEDS: METOPROLOL (XL) 50 MG TAB PO (08:40)
[2018-05-24] MEDS: NIFEdipine (XL) 60 MG TAB PO (08:41)
[2018-05-24] MEDS: ALLOPURINOL 100 MG TAB PO (08:41)
[2018-05-24] MEDS: FERROUS SULFATE (EC) 325 MG TAB PO ×2 (08:41→20:18)
[2018-05-24] MEDS: SODIUM HYPOCHLORITE (1/40) 1 APPLIC BTL IRR (08:44)
[2018-05-24] MEDS: POVIDONE IODINE 10% 28.4 GM OINT TOP (08:44)
[2018-05-24] MEDS: NICOTINE (14 MG/24 HR) PATCH TRANSDERM (08:53)
[2018-05-24] MEDS: DOCUSATE SODIUM 100 MG CAP PO (20:16)
[2018-05-25] MEDS: LORAZEPAM 2 MG INJ IV ×4 (02:39→22:24)
[2018-05-25] MEDS: HYDROCODONE/APAP (10/325) TAB PO ×6 (02:54→22:23)
[2018-05-25] MEDS: HYDROmorphONE 0.5 MG/0.5 ML SYG IV ×3 (04:09→17:35)
[2018-05-25] MEDS: BUMETANIDE 1 MG INJ IV ×2 (05:54→17:29)
[2018-05-25] MEDS: PANTOPRAZOLE (EC) 40 MG TAB PO (05:54)
[2018-05-25] MEDS: LEVOTHYROXINE 100 MCG TAB PO (05:54)
[2018-05-25] MEDS: LACTULOSE 30ML CUP PO ×3 (05:54→22:23)
[2018-05-25 07:30] LABS: ADD MAN DIFF? NO
[2018-05-25 07:40] LABS: WHITE BLOOD COUNT 8.9 10^3/ul (4.8-10.8)
[2018-05-25 07:40] LABS: ABNORMAL IP MESSAGE 1; BASOPHIL # 0.2 10^3/ul (0.0-0.1); BASOPHILS % 1.7 % (0.0-2.0); EOSINOPHILS # 0.1 10^3/ul (0.0-0.5); EOSINOPHILS % 1.2 % (0.0-7.0); HEMATOCRIT 28.9 % (42.0-52.0); HEMOGLOBIN 8.8 g/dl (14.0-18.0); LYMPHOCYTES % 10.9 % (15.0-51.0); MEAN CORPUSCULAR HEMOGLOBIN 25.6 pg (29.0-33.0); MEAN CORPUSCULAR HGB CONC 30.4 g/dl (32.0-37.0); MONOCYTE # 1.7 10^3/ul (0.3-0.9); MONOCYTES % 19.4 % (0.0-11.0); NEUTROPHIL # 5.5 10^3/ul (1.6-7.5); NUCLEATED RED BLOOD CELLS% 0.2 /100WBC (0.0-0.0); PLATELET COUNT 200 10^3/UL (140-415); POSITIVE DIFF @See below; RED BLOOD COUNT 3.44 10^6/ul (4.70-6.10); RED CELL DISTRIBUTION WIDTH 22.7 % (11.5-14.5)
[2018-05-25 08:00] LABS: ANION GAP 12 (8-16); BLOOD UREA NITROGEN 32 mg/dl (7-20); CALCIUM 8.6 mg/dl (8.4-10.2); CARBON DIOXIDE 27 mmol/L (21-31); CHLORIDE 106 mmol/L (97-110); CREATININE 1.84 mg/dl (0.61-1.24); GLUCOSE 88 mg/dl (70-220); POTASSIUM 4.6 mmol/L (3.5-5.1); SODIUM 140 mmol/L (135-144)
[2018-05-25] MEDS: ALBUTEROL/IPRATROPIUM (NEB) 3 ML AMP HHN ×3 (08:00→20:00)
[2018-05-25] MEDS: METOPROLOL (XL) 50 MG TAB PO (08:02)
[2018-05-25] MEDS: SPIRONOLACTONE 50 MG TAB PO (08:02)
[2018-05-25] MEDS: ALLOPURINOL 100 MG TAB PO (08:02)
[2018-05-25] MEDS: NIFEdipine (XL) 60 MG TAB PO (08:02)
[2018-05-25] MEDS: FERROUS SULFATE (EC) 325 MG TAB PO ×2 (08:02→20:40)
[2018-05-25] MEDS: SODIUM HYPOCHLORITE (1/40) 1 APPLIC BTL IRR (08:03)
[2018-05-25] MEDS: POVIDONE IODINE 10% 28.4 GM OINT TOP (08:03)
[2018-05-25] MEDS: NICOTINE (14 MG/24 HR) PATCH TRANSDERM (08:04)
[2018-05-25] MEDS: CITRIC ACID/NA CITRATE 30 ML CUP PO ×2 (09:06→20:41)
[2018-05-25] MEDS: DOCUSATE SODIUM 100 MG CAP PO (20:40)
[2018-05-26] MEDS: HYDROmorphONE 0.5 MG/0.5 ML SYG IV ×4 (00:52→20:55)
[2018-05-26] MEDS: HYDROCODONE/APAP (10/325) TAB PO ×4 (03:05→22:11)
[2018-05-26] MEDS: PANTOPRAZOLE (EC) 40 MG TAB PO (06:02)
[2018-05-26] MEDS: LEVOTHYROXINE 100 MCG TAB PO (06:02)
[2018-05-26] MEDS: LACTULOSE 30ML CUP PO ×3 (06:02→20:57)
[2018-05-26] MEDS: BUMETANIDE 1 MG INJ IV ×2 (06:03→18:00)
[2018-05-26] MEDS: LORAZEPAM 2 MG INJ IV ×2 (06:09→15:31)
[2018-05-26] MEDS: METOPROLOL (XL) 50 MG TAB PO (09:13)
[2018-05-26] MEDS: ALLOPURINOL 100 MG TAB PO (09:13)
[2018-05-26] MEDS: FERROUS SULFATE (EC) 325 MG TAB PO ×2 (09:13→20:55)
[2018-05-26] MEDS: NIFEdipine (XL) 60 MG TAB PO (09:13)
[2018-05-26] MEDS: SPIRONOLACTONE 50 MG TAB PO (09:13)
[2018-05-26] MEDS: SODIUM HYPOCHLORITE (1/40) 1 APPLIC BTL IRR (09:14)
[2018-05-26] MEDS: CITRIC ACID/NA CITRATE 30 ML CUP PO ×2 (09:14→20:56)
[2018-05-26] MEDS: NICOTINE (14 MG/24 HR) PATCH TRANSDERM (09:15)
[2018-05-26] MEDS: POVIDONE IODINE 10% 28.4 GM OINT TOP (09:15)
[2018-05-26] MEDS: ALBUTEROL/IPRATROPIUM (NEB) 3 ML AMP HHN ×3 (09:37→20:00)
[2018-05-26 11:26] LABS: ADD MAN DIFF? NO
[2018-05-26 11:33] LABS: WHITE BLOOD COUNT 9.5 10^3/ul (4.8-10.8)
[2018-05-26 11:33] LABS: ABNORMAL IP MESSAGE 1; HEMATOCRIT 27.1 % (42.0-52.0); HEMOGLOBIN 8.2 g/dl (14.0-18.0); MEAN CORPUSCULAR HEMOGLOBIN 25.5 pg (29.0-33.0); MEAN CORPUSCULAR HGB CONC 30.3 g/dl (32.0-37.0); MEAN CORPUSCULAR VOLUME 84.4 fl (82.0-101.0); PLATELET COUNT 201 10^3/UL (140-415); POSITIVE DIFF @See below; RED BLOOD COUNT 3.21 10^6/ul (4.70-6.10); RED CELL DISTRIBUTION WIDTH 22.8 % (11.5-14.5)
[2018-05-26 12:05] LABS: ANION GAP 11 (8-16); BLOOD UREA NITROGEN 36 mg/dl (7-20); CALCIUM 8.4 mg/dl (8.4-10.2); CARBON DIOXIDE 25 mmol/L (21-31); CHLORIDE 106 mmol/L (97-110); CREATININE 1.68 mg/dl (0.61-1.24); GLUCOSE 143 mg/dl (70-220); POTASSIUM 4.1 mmol/L (3.5-5.1); SODIUM 138 mmol/L (135-144)
[2018-05-26 12:12] LABS: BASOPHIL # 0.2 10^3/ul (0.0-0.1); EOSINOPHILS # 0.2 10^3/ul (0.0-0.5); EOSINOPHILS % 1.7 % (0.0-7.0); LYMPHOCYTES % 10.6 % (15.0-51.0); MONOCYTE # 1.8 10^3/ul (0.3-0.9); MONOCYTES % 18.9 % (0.0-11.0); NEUTROPHILS % 63.2 % (39.0-77.0)
[2018-05-26] MEDS: DOCUSATE SODIUM 100 MG CAP PO (20:55)
[2018-05-27] MEDS: LORAZEPAM 2 MG INJ IV ×4 (00:32→20:32)
[2018-05-27] MEDS: HYDROCODONE/APAP (10/325) TAB PO ×4 (02:08→19:41)
[2018-05-27] MEDS: HYDROmorphONE 0.5 MG/0.5 ML SYG IV ×4 (03:52→23:26)
[2018-05-27] MEDS: PANTOPRAZOLE (EC) 40 MG TAB PO (06:16)
[2018-05-27] MEDS: LACTULOSE 30ML CUP PO ×3 (06:16→23:26)
[2018-05-27] MEDS: LEVOTHYROXINE 100 MCG TAB PO (06:16)
[2018-05-27] MEDS: BUMETANIDE 1 MG INJ IV ×2 (06:16→17:03)
[2018-05-27] MEDS: ALBUTEROL/IPRATROPIUM (NEB) 3 ML AMP HHN ×3 (08:00→20:00)
[2018-05-27] MEDS: CITRIC ACID/NA CITRATE 30 ML CUP PO ×2 (09:14→20:31)
[2018-05-27] MEDS: SPIRONOLACTONE 50 MG TAB PO (09:14)
[2018-05-27] MEDS: FERROUS SULFATE (EC) 325 MG TAB PO ×2 (09:14→20:31)
[2018-05-27] MEDS: ALLOPURINOL 100 MG TAB PO (09:14)
[2018-05-27] MEDS: SODIUM HYPOCHLORITE (1/40) 1 APPLIC BTL IRR (09:15)
[2018-05-27] MEDS: POVIDONE IODINE 10% 28.4 GM OINT TOP (09:15)
[2018-05-27] MEDS: METOPROLOL (XL) 50 MG TAB PO (09:15)
[2018-05-27] MEDS: NIFEdipine (XL) 60 MG TAB PO (09:15)
[2018-05-27] MEDS: NICOTINE (14 MG/24 HR) PATCH TRANSDERM (09:18)
[2018-05-27] MEDS: DOCUSATE SODIUM 100 MG CAP PO (20:31)
[2018-05-28] MEDS: HYDROCODONE/APAP (10/325) TAB PO ×5 (01:17→20:53)
[2018-05-28] MEDS: LORAZEPAM 2 MG INJ IV ×3 (03:04→17:12)
[2018-05-28] MEDS: LEVOTHYROXINE 100 MCG TAB PO (05:23)
[2018-05-28] MEDS: BUMETANIDE 1 MG INJ IV ×2 (05:23→18:01)
[2018-05-28] MEDS: LACTULOSE 30ML CUP PO ×3 (05:23→22:00)
[2018-05-28] MEDS: PANTOPRAZOLE (EC) 40 MG TAB PO (05:23)
[2018-05-28] MEDS: HYDROmorphONE 0.5 MG/0.5 ML SYG IV ×2 (06:22→15:27)
[2018-05-28] MEDS: ALBUTEROL/IPRATROPIUM (NEB) 3 ML AMP HHN ×3 (08:00→20:00)
[2018-05-28] MEDS: ALLOPURINOL 100 MG TAB PO (08:39)
[2018-05-28] MEDS: FERROUS SULFATE (EC) 325 MG TAB PO ×3 (08:39→20:56)
[2018-05-28] MEDS: CITRIC ACID/NA CITRATE 30 ML CUP PO ×3 (08:39→20:54)
[2018-05-28] MEDS: NICOTINE (14 MG/24 HR) PATCH TRANSDERM (08:39)
[2018-05-28] MEDS: NIFEdipine (XL) 60 MG TAB PO (08:40)
[2018-05-28] MEDS: METOPROLOL (XL) 50 MG TAB PO (08:40)
[2018-05-28] MEDS: SPIRONOLACTONE 50 MG TAB PO (08:40)
[2018-05-28] MEDS: SODIUM HYPOCHLORITE (1/40) 1 APPLIC BTL IRR (08:41)
[2018-05-28] MEDS: POVIDONE IODINE 10% 28.4 GM OINT TOP (08:41)
[2018-05-28 09:57] LABS: ANION GAP 11 (8-16); BLOOD UREA NITROGEN 36 mg/dl (7-20); CALCIUM 8.7 mg/dl (8.4-10.2); CARBON DIOXIDE 29 mmol/L (21-31); CHLORIDE 104 mmol/L (97-110); CREATININE 2.08 mg/dl (0.61-1.24); GLUCOSE 110 mg/dl (70-220); POTASSIUM 4.4 mmol/L (3.5-5.1); SODIUM 140 mmol/L (135-144)
[2018-05-28] MEDS: DOCUSATE SODIUM 100 MG CAP PO ×2 (20:44→20:56)
[2018-05-29] MEDS: HYDROmorphONE 0.5 MG/0.5 ML SYG IV ×4 (01:24→22:24)
[2018-05-29] MEDS: LACTULOSE 30ML CUP PO ×4 (01:24→22:29)
[2018-05-29] MEDS: HYDROCODONE/APAP (10/325) TAB PO ×5 (02:27→21:14)
[2018-05-29] MEDS: LORAZEPAM 2 MG INJ IV ×3 (03:31→16:48)
[2018-05-29] MEDS: BUMETANIDE 1 MG TAB PO ×2 (06:25→17:34)
[2018-05-29] MEDS: LEVOTHYROXINE 100 MCG TAB PO (06:26)
[2018-05-29] MEDS: PANTOPRAZOLE (EC) 40 MG TAB PO (06:26)
[2018-05-29 06:53] LABS: ABNORMAL IP MESSAGE 1; HEMATOCRIT 28.5 % (42.0-52.0); HEMOGLOBIN 8.6 g/dl (14.0-18.0); MEAN CORPUSCULAR HEMOGLOBIN 25.1 pg (29.0-33.0); MEAN CORPUSCULAR HGB CONC 30.2 g/dl (32.0-37.0); MEAN CORPUSCULAR VOLUME 83.3 fl (82.0-101.0); NUCLEATED RED BLOOD CELLS% 0.2 /100WBC (0.0-0.0); PLATELET COUNT 265 10^3/UL (140-415); POSITIVE DIFF @See below; RED BLOOD COUNT 3.42 10^6/ul (4.70-6.10)
[2018-05-29 06:53] LABS: WHITE BLOOD COUNT 10.2 10^3/ul (4.8-10.8)
[2018-05-29 07:00] LABS: ADD MAN DIFF? YES
[2018-05-29 07:34] LABS: ANION GAP 9 (8-16); BLOOD UREA NITROGEN 40 mg/dl (7-20); CALCIUM 8.4 mg/dl (8.4-10.2); CARBON DIOXIDE 30 mmol/L (21-31); CHLORIDE 106 mmol/L (97-110); CREATININE 2.04 mg/dl (0.61-1.24); GLUCOSE 89 mg/dl (70-220); POTASSIUM 4.8 mmol/L (3.5-5.1); SODIUM 140 mmol/L (135-144)
[2018-05-29 09:09] LABS: ANISOCYTOSIS 1+ (0-0); BAND NEUTROPHILS #M 0.4 10^3/ul (0.0-0.6); BAND NEUTROPHILS % (M) 4 % (0-4); BASOPHIL #M 0.3 10^3/ul (0.0-0.0); BASOPHILS % (M) 3 % (0-2); EOSINOPHILS % (M) 5 % (0-7); GIANT THROMBO% (M) 4 % (0-0); LYMPHOCYTES #M 1.8 10^3/ul (0.8-2.9); LYMPHOCYTES % (M) 18 % (15-51); MICROCYTOSIS 1+ (0-0); MONOCYTE #M 0.5 10^3/ul (0.3-0.9); MONOCYTES % (M) 5 % (0-11); PLATELET ESTIMATE NORMAL; PLATELET MORPHOLOGY COMMENT @See below; POIKILOCYTOSIS 2+ (0-0); POLYCHROMASIA 1+ (0-0); REACTIVE LYMPHOCYTES #M 0.8 10^3/ul (0.0-0.0); REACTIVE LYMPHOCYTES% (M) 8 % (0-0); SEG NEUT #M 5.9 10^3/ul (1.6-7.5); SEGMENTED NEUTROPHILS (M) % 57 % (39-77); SMUDGE%M 27 % (0-0)
[2018-05-29] MEDS: POVIDONE IODINE 10% 28.4 GM OINT TOP (09:15)
[2018-05-29] MEDS: FERROUS SULFATE (EC) 325 MG TAB PO ×3 (09:15→22:28)
[2018-05-29] MEDS: ALLOPURINOL 100 MG TAB PO (09:16)
[2018-05-29] MEDS: CITRIC ACID/NA CITRATE 30 ML CUP PO ×3 (09:16→22:29)
[2018-05-29] MEDS: NIFEdipine (XL) 60 MG TAB PO (09:16)
[2018-05-29] MEDS: METOPROLOL (XL) 50 MG TAB PO (09:16)
[2018-05-29] MEDS: SPIRONOLACTONE 50 MG TAB PO (09:16)
[2018-05-29] MEDS: NICOTINE (14 MG/24 HR) PATCH TRANSDERM (09:17)
[2018-05-29] MEDS: SODIUM HYPOCHLORITE (1/40) 1 APPLIC BTL IRR (09:31)
[2018-05-29] MEDS: ALBUTEROL/IPRATROPIUM (NEB) 3 ML AMP HHN ×3 (09:40→20:00)
[2018-05-29] MEDS: DOCUSATE SODIUM 100 MG CAP PO ×2 (21:00→22:27)
[2018-05-30] MEDS: LORAZEPAM 2 MG INJ IV ×4 (00:24→20:15)
[2018-05-30] MEDS: HYDROCODONE/APAP (10/325) TAB PO ×4 (03:19→20:09)
[2018-05-30] MEDS: BUMETANIDE 1 MG TAB PO ×2 (05:06→18:15)
[2018-05-30] MEDS: HYDROmorphONE 0.5 MG/0.5 ML SYG IV ×3 (05:06→18:15)
[2018-05-30] MEDS: PANTOPRAZOLE (EC) 40 MG TAB PO (05:07)
[2018-05-30] MEDS: LACTULOSE 30ML CUP PO ×3 (05:07→22:00)
[2018-05-30] MEDS: LEVOTHYROXINE 100 MCG TAB PO (06:45)
[2018-05-30] MEDS: ALBUTEROL/IPRATROPIUM (NEB) 3 ML AMP HHN ×3 (08:00→19:45)
[2018-05-30] MEDS: POVIDONE IODINE 10% 28.4 GM OINT TOP (08:17)
[2018-05-30] MEDS: SODIUM HYPOCHLORITE (1/40) 1 APPLIC BTL IRR (08:17)
[2018-05-30] MEDS: NICOTINE (14 MG/24 HR) PATCH TRANSDERM (08:18)
[2018-05-30] MEDS: ALLOPURINOL 100 MG TAB PO (08:18)
[2018-05-30] MEDS: FERROUS SULFATE (EC) 325 MG TAB PO ×2 (08:18→20:10)
[2018-05-30] MEDS: CITRIC ACID/NA CITRATE 30 ML CUP PO ×2 (08:18→21:00)
[2018-05-30] MEDS: SPIRONOLACTONE 50 MG TAB PO (08:18)
[2018-05-30] MEDS: NIFEdipine (XL) 60 MG TAB PO (08:19)
[2018-05-30] MEDS: METOPROLOL (XL) 50 MG TAB PO (08:19)
[2018-05-30] MEDS: DOCUSATE SODIUM 100 MG CAP PO (20:09)
[2018-05-31] MEDS: HYDROmorphONE 0.5 MG/0.5 ML SYG IV ×4 (00:42→23:34)
[2018-05-31] MEDS: CITRIC ACID/NA CITRATE 30 ML CUP PO ×3 (00:45→21:10)
[2018-05-31] MEDS: LACTULOSE 30ML CUP PO ×4 (00:45→21:11)
[2018-05-31] MEDS: HYDROCODONE/APAP (10/325) TAB PO ×3 (02:51→19:57)
[2018-05-31] MEDS: LORAZEPAM 2 MG INJ IV ×2 (03:00→18:56)
[2018-05-31] MEDS: PANTOPRAZOLE (EC) 40 MG TAB PO (06:29)
[2018-05-31] MEDS: BUMETANIDE 1 MG TAB PO ×2 (06:29→17:35)
[2018-05-31] MEDS: LEVOTHYROXINE 100 MCG TAB PO (06:30)
[2018-05-31] MEDS: FERROUS SULFATE (EC) 325 MG TAB PO ×2 (09:26→21:11)
[2018-05-31] MEDS: SPIRONOLACTONE 50 MG TAB PO (09:26)
[2018-05-31] MEDS: NIFEdipine (XL) 60 MG TAB PO (09:26)
[2018-05-31] MEDS: ALLOPURINOL 100 MG TAB PO (09:27)
[2018-05-31] MEDS: METOPROLOL (XL) 50 MG TAB PO (09:28)
[2018-05-31] MEDS: NICOTINE (14 MG/24 HR) PATCH TRANSDERM (09:28)
[2018-05-31] MEDS: SODIUM HYPOCHLORITE (1/40) 1 APPLIC BTL IRR (09:29)
[2018-05-31] MEDS: POVIDONE IODINE 10% 28.4 GM OINT TOP (09:30)
[2018-05-31] MEDS: ALBUTEROL/IPRATROPIUM (NEB) 3 ML AMP HHN ×3 (10:15→19:26)
[2018-05-31 11:03] LABS: ADD MAN DIFF? NO
[2018-05-31 11:06] LABS: ABNORMAL IP MESSAGE 1; BASOPHIL # 0.2 10^3/ul (0.0-0.1); EOSINOPHILS # 0.7 10^3/ul (0.0-0.5); EOSINOPHILS % 6.2 % (0.0-7.0); HEMATOCRIT 29.7 % (42.0-52.0); HEMOGLOBIN 9.1 g/dl (14.0-18.0); LYMPHOCYTES # 1.6 10^3/ul (0.8-2.9); LYMPHOCYTES % 14.8 % (15.0-51.0); MEAN CORPUSCULAR HEMOGLOBIN 25.3 pg (29.0-33.0); MEAN CORPUSCULAR HGB CONC 30.6 g/dl (32.0-37.0); MEAN CORPUSCULAR VOLUME 82.7 fl (82.0-101.0); MEAN PLATELET VOLUME 11.9 fl (7.4-10.4); MONOCYTE # 1.5 10^3/ul (0.3-0.9); MONOCYTES % 14.5 % (0.0-11.0); NEUTROPHIL # 5.9 10^3/ul (1.6-7.5); NEUTROPHILS % 55.6 % (39.0-77.0); PLATELET COUNT 256 10^3/UL (140-415); POSITIVE DIFF @See below; RED BLOOD COUNT 3.59 10^6/ul (4.70-6.10); RED CELL DISTRIBUTION WIDTH 22.8 % (11.5-14.5)
[2018-05-31 11:06] LABS: WHITE BLOOD COUNT 10.7 10^3/ul (4.8-10.8)
[2018-05-31 11:25] LABS: ANION GAP 7 (5-13); BLOOD UREA NITROGEN 44 mg/dl (7-20); CALCIUM 8.8 mg/dl (8.4-10.2); CARBON DIOXIDE 31 mmol/L (21-31); CHLORIDE 101 mmol/L (97-110); CREATININE 2.02 mg/dl (0.61-1.24); GLUCOSE 116 mg/dl (70-220); POTASSIUM 4.5 mmol/L (3.5-5.1); SODIUM 139 mmol/L (135-144)
[2018-05-31 12:06] LABS: ANISOCYTOSIS 1+ (0-0); BAND NEUTROPHILS #M 0.1 10^3/ul (0.0-0.6); BAND NEUTROPHILS % (M) 1 % (0-4); EOSINOPHILS % (M) 8 % (0-7); GIANT THROMBO% (M) 1 % (0-0); HYPOCHROMASIA 1+ (0-0); LYMPHOCYTES #M 1.3 10^3/ul (0.8-2.9); LYMPHOCYTES % (M) 13 % (15-51); MICROCYTOSIS 1+ (0-0); MONOCYTES % (M) 10 % (0-11); OVALOCYTES 1+ (0-0); PLATELET ESTIMATE NORMAL; POIKILOCYTOSIS 1+ (0-0); POLYCHROMASIA 1+ (0-0); REACTIVE LYMPHOCYTES #M 0.3 10^3/ul (0.0-0.0); REACTIVE LYMPHOCYTES% (M) 3 % (0-0); SEGMENTED NEUTROPHILS (M) % 65 % (39-77); SMUDGE%M 10 % (0-0); TARGET CELLS 1+ (0-0)
[2018-05-31] MEDS: DOCUSATE SODIUM 100 MG CAP PO (21:11)
[2018-06-01] MEDS: HYDROCODONE/APAP (10/325) TAB PO ×5 (00:26→20:35)
[2018-06-01] MEDS: LORAZEPAM 2 MG INJ IV ×4 (01:26→17:45)
[2018-06-01] MEDS: LACTULOSE 30ML CUP PO ×3 (05:06→20:37)
[2018-06-01] MEDS: PANTOPRAZOLE (EC) 40 MG TAB PO (05:06)
[2018-06-01] MEDS: BUMETANIDE 1 MG TAB PO ×2 (05:06→17:19)
[2018-06-01] MEDS: LEVOTHYROXINE 100 MCG TAB PO (06:44)
[2018-06-01] MEDS: HYDROmorphONE 0.5 MG/0.5 ML SYG IV ×3 (06:44→18:48)
[2018-06-01] MEDS: ALBUTEROL/IPRATROPIUM (NEB) 3 ML AMP HHN ×3 (08:00→19:59)
[2018-06-01] MEDS: ALLOPURINOL 100 MG TAB PO (08:55)
[2018-06-01] MEDS: SPIRONOLACTONE 50 MG TAB PO (08:55)
[2018-06-01] MEDS: CITRIC ACID/NA CITRATE 30 ML CUP PO ×2 (08:55→20:35)
[2018-06-01] MEDS: FERROUS SULFATE (EC) 325 MG TAB PO ×2 (08:55→20:35)
[2018-06-01] MEDS: METOPROLOL (XL) 50 MG TAB PO (08:55)
[2018-06-01] MEDS: NICOTINE (14 MG/24 HR) PATCH TRANSDERM (08:56)
[2018-06-01] MEDS: NIFEdipine (XL) 60 MG TAB PO (08:56)
[2018-06-01] MEDS: POVIDONE IODINE 10% 28.4 GM OINT TOP (08:56)
[2018-06-01] MEDS: SODIUM HYPOCHLORITE (1/40) 1 APPLIC BTL IRR (08:56)
[2018-06-01] MEDS: DOCUSATE SODIUM 100 MG CAP PO (20:35)
[2018-06-02] MEDS: HYDROmorphONE 0.5 MG/0.5 ML SYG IV ×4 (01:07→20:52)
[2018-06-02] MEDS: HYDROCODONE/APAP (10/325) TAB PO ×4 (02:34→21:57)
[2018-06-02] MEDS: LORAZEPAM 2 MG INJ IV ×3 (03:46→20:03)
[2018-06-02] MEDS: BUMETANIDE 1 MG TAB PO ×2 (05:20→17:24)
[2018-06-02] MEDS: LACTULOSE 30ML CUP PO ×3 (05:20→21:57)
[2018-06-02] MEDS: PANTOPRAZOLE (EC) 40 MG TAB PO (05:21)
[2018-06-02] MEDS: LEVOTHYROXINE 100 MCG TAB PO (05:21)
[2018-06-02] MEDS: SODIUM HYPOCHLORITE (1/40) 1 APPLIC BTL IRR (08:09)
[2018-06-02] MEDS: POVIDONE IODINE 10% 28.4 GM OINT TOP (08:09)
[2018-06-02] MEDS: CITRIC ACID/NA CITRATE 30 ML CUP PO ×2 (08:09→20:02)
[2018-06-02] MEDS: NICOTINE (14 MG/24 HR) PATCH TRANSDERM (08:11)
[2018-06-02] MEDS: NIFEdipine (XL) 60 MG TAB PO (08:11)
[2018-06-02] MEDS: ALLOPURINOL 100 MG TAB PO (08:11)
[2018-06-02] MEDS: METOPROLOL (XL) 50 MG TAB PO (08:12)
[2018-06-02] MEDS: SPIRONOLACTONE 50 MG TAB PO (08:13)
[2018-06-02] MEDS: FERROUS SULFATE (EC) 325 MG TAB PO ×2 (08:13→20:02)
[2018-06-02] MEDS: ALBUTEROL/IPRATROPIUM (NEB) 3 ML AMP HHN ×3 (08:30→20:00)
[2018-06-02] MEDS: DEXTROSE 5%-0.45% NACL 1,000 ML IV (13:24)
[2018-06-02] MEDS: DOCUSATE SODIUM 100 MG CAP PO (20:02)
[2018-06-03] MEDS: HYDROCODONE/APAP (10/325) TAB PO ×5 (02:07→22:38)
[2018-06-03] MEDS: HYDROmorphONE 0.5 MG/0.5 ML SYG IV ×3 (03:17→17:36)
[2018-06-03] MEDS: LACTULOSE 30ML CUP PO ×3 (05:06→22:38)
[2018-06-03] MEDS: BUMETANIDE 1 MG TAB PO ×2 (05:06→17:35)
[2018-06-03] MEDS: PANTOPRAZOLE (EC) 40 MG TAB PO (05:06)
[2018-06-03] MEDS: LORAZEPAM 2 MG INJ IV ×3 (05:07→20:58)
[2018-06-03] MEDS: LEVOTHYROXINE 100 MCG TAB PO (06:09)
[2018-06-03 07:06] LABS: WHITE BLOOD COUNT 14.5 10^3/ul (4.8-10.8)
[2018-06-03 07:06] LABS: ABNORMAL IP MESSAGE 1; HEMATOCRIT 32.7 % (42.0-52.0); HEMOGLOBIN 9.8 g/dl (14.0-18.0); MEAN CORPUSCULAR HEMOGLOBIN 24.8 pg (29.0-33.0); MEAN CORPUSCULAR VOLUME 82.8 fl (82.0-101.0); MEAN PLATELET VOLUME 12.2 fl (7.4-10.4); NUCLEATED RED BLOOD CELLS% 0.1 /100WBC (0.0-0.0); PLATELET COUNT 336 10^3/UL (140-415); POSITIVE DIFF @See below; RED BLOOD COUNT 3.95 10^6/ul (4.70-6.10); RED CELL DISTRIBUTION WIDTH 22.6 % (11.5-14.5)
[2018-06-03 07:15] LABS: ADD MAN DIFF? YES
[2018-06-03 07:23] LABS: ANION GAP 13 (5-13); BLOOD UREA NITROGEN 51 mg/dl (7-20); CALCIUM 9.1 mg/dl (8.4-10.2); CARBON DIOXIDE 24 mmol/L (21-31); CHLORIDE 103 mmol/L (97-110); CREATININE 1.98 mg/dl (0.61-1.24); GLUCOSE 110 mg/dl (70-220); SODIUM 140 mmol/L (135-144)
[2018-06-03 07:25] LABS: POTASSIUM 4.2 mmol/L (3.5-5.1)
[2018-06-03] MEDS: ALBUTEROL/IPRATROPIUM (NEB) 3 ML AMP HHN ×3 (07:27→20:00)
[2018-06-03] MEDS: SODIUM HYPOCHLORITE (1/40) 1 APPLIC BTL IRR (08:52)
[2018-06-03] MEDS: POVIDONE IODINE 10% 28.4 GM OINT TOP (08:52)
[2018-06-03] MEDS: SPIRONOLACTONE 50 MG TAB PO (08:53)
[2018-06-03] MEDS: CITRIC ACID/NA CITRATE 30 ML CUP PO ×2 (08:53→20:57)
[2018-06-03] MEDS: ALLOPURINOL 100 MG TAB PO (08:53)
[2018-06-03] MEDS: FERROUS SULFATE (EC) 325 MG TAB PO ×2 (08:53→20:57)
[2018-06-03] MEDS: DEXTROSE 5%-0.45% NACL 1,000 ML IV (08:54)
[2018-06-03] MEDS: METOPROLOL (XL) 50 MG TAB PO (08:55)
[2018-06-03] MEDS: NIFEdipine (XL) 60 MG TAB PO (08:55)
[2018-06-03] MEDS: NICOTINE (14 MG/24 HR) PATCH TRANSDERM (08:56)
[2018-06-03 09:03] LABS: ANISOCYTOSIS 2+ (0-0); BAND NEUTROPHILS #M 0.4 10^3/ul (0.0-0.6); BAND NEUTROPHILS % (M) 3 % (0-4); BASOPHIL #M 0.1 10^3/ul (0.0-0.0); BASOPHILS % (M) 1 % (0-2); BURR CELLS 1+ (0-0); EOSINOPHILS % (M) 10 % (0-7); HYPOCHROMASIA 1+ (0-0); LYMPHOCYTES % (M) 7 % (15-51); METAMYELOCYTES #M 0.2 10^3/ul (0.0-0.0); METAMYELOCYTES %M 2 % (0-0); MICROCYTOSIS 1+ (0-0); MONOCYTE #M 2.4 10^3/ul (0.3-0.9); MONOCYTES % (M) 17 % (0-11); MYELOCYTES #M 0.2 10^3/ul (0.0-0.0); MYELOCYTES % (M) 2 % (0-0); PLATELET ESTIMATE NORMAL; PLATELET MORPHOLOGY COMMENT @See below; POIKILOCYTOSIS 1+ (0-0); POLYCHROMASIA 3+ (0-0); REACTIVE LYMPHOCYTES #M 0.1 10^3/ul (0.0-0.0); REACTIVE LYMPHOCYTES% (M) 1 % (0-0); SCHISTOCYTES 1+ (0-0); SEG NEUT #M 8.3 10^3/ul (1.6-7.5); SEGMENTED NEUTROPHILS (M) % 57 % (39-77); SMUDGE%M 11 % (0-0)
[2018-06-03] MEDS: ALBUMIN HUMAN 25% 100 ML IV (18:11)
[2018-06-03] MEDS: SOD CHLORIDE 0.9% 1,000 ML IV (18:11)
[2018-06-03] MEDS: DOCUSATE SODIUM 100 MG CAP PO (20:57)
[2018-06-04] MEDS: HYDROmorphONE 0.5 MG/0.5 ML SYG IV ×4 (00:13→21:48)
[2018-06-04] MEDS: LORAZEPAM 2 MG INJ IV ×3 (03:14→18:18)
[2018-06-04] MEDS: HYDROCODONE/APAP (10/325) TAB PO ×5 (03:15→23:27)
[2018-06-04] MEDS: LEVOTHYROXINE 100 MCG TAB PO (06:19)
[2018-06-04] MEDS: PANTOPRAZOLE (EC) 40 MG TAB PO (06:19)
[2018-06-04] MEDS: BUMETANIDE 1 MG TAB PO ×2 (06:19→17:57)
[2018-06-04] MEDS: LACTULOSE 30ML CUP PO ×3 (06:19→21:47)
[2018-06-04 06:33] LABS: WHITE BLOOD COUNT 10.4 10^3/ul (4.8-10.8)
[2018-06-04 06:33] LABS: ABNORMAL IP MESSAGE 1; HEMATOCRIT 27.9 % (42.0-52.0); HEMOGLOBIN 8.4 g/dl (14.0-18.0); MEAN CORPUSCULAR HEMOGLOBIN 24.8 pg (29.0-33.0); MEAN CORPUSCULAR HGB CONC 30.1 g/dl (32.0-37.0); MEAN CORPUSCULAR VOLUME 82.3 fl (82.0-101.0); MEAN PLATELET VOLUME 11.5 fl (7.4-10.4); PLATELET COUNT 239 10^3/UL (140-415); POSITIVE DIFF @See below; RED BLOOD COUNT 3.39 10^6/ul (4.70-6.10); RED CELL DISTRIBUTION WIDTH 22.4 % (11.5-14.5)
[2018-06-04 06:50] LABS: ADD MAN DIFF? YES
[2018-06-04 06:58] LABS: ANION GAP 11 (5-13); BLOOD UREA NITROGEN 51 mg/dl (7-20); CALCIUM 8.7 mg/dl (8.4-10.2); CARBON DIOXIDE 24 mmol/L (21-31); CHLORIDE 106 mmol/L (97-110); CREATININE 1.85 mg/dl (0.61-1.24); GLUCOSE 87 mg/dl (70-220); POTASSIUM 3.7 mmol/L (3.5-5.1); SODIUM 141 mmol/L (135-144)
[2018-06-04] MEDS: ALBUTEROL/IPRATROPIUM (NEB) 3 ML AMP HHN ×3 (08:00→20:00)
[2018-06-04] MEDS: CITRIC ACID/NA CITRATE 30 ML CUP PO (08:09)
[2018-06-04] MEDS: METOPROLOL (XL) 50 MG TAB PO (08:10)
[2018-06-04] MEDS: NICOTINE (14 MG/24 HR) PATCH TRANSDERM (08:10)
[2018-06-04] MEDS: NIFEdipine (XL) 60 MG TAB PO (08:11)
[2018-06-04] MEDS: FERROUS SULFATE (EC) 325 MG TAB PO ×2 (08:11→21:47)
[2018-06-04] MEDS: ALLOPURINOL 100 MG TAB PO (08:11)
[2018-06-04] MEDS: SPIRONOLACTONE 50 MG TAB PO (08:11)
[2018-06-04] MEDS: POVIDONE IODINE 10% 28.4 GM OINT TOP (08:12)
[2018-06-04] MEDS: SODIUM HYPOCHLORITE (1/40) 1 APPLIC BTL IRR (08:12)
[2018-06-04 09:18] LABS: ANISOCYTOSIS 2+ (0-0); BASOPHIL #M 0.3 10^3/ul (0.0-0.0); BASOPHILS % (M) 3 % (0-2); BURR CELLS 1+ (0-0); EOSINOPHILS % (M) 5 % (0-7); GIANT THROMBO% (M) 2 % (0-0); HYPOCHROMASIA 1+ (0-0); LYMPHOCYTES #M 0.9 10^3/ul (0.8-2.9); LYMPHOCYTES % (M) 9 % (15-51); METAMYELOCYTES #M 0.1 10^3/ul (0.0-0.0); METAMYELOCYTES %M 1 % (0-0); MICROCYTOSIS 1+ (0-0); MONOCYTES % (M) 20 % (0-11); MYELOCYTES #M 0.4 10^3/ul (0.0-0.0); MYELOCYTES % (M) 4 % (0-0); PLATELET ESTIMATE NORMAL; POIKILOCYTOSIS 2+ (0-0); POLYCHROMASIA 3+ (0-0); SCHISTOCYTES 1+ (0-0); SEGMENTED NEUTROPHILS (M) % 58 % (39-77); SMUDGE%M 4 % (0-0); TARGET CELLS 1+ (0-0)
[2018-06-04] MEDS: SOD CHLORIDE 0.9% 1,000 ML IV (13:00)
[2018-06-04] MEDS: DOCUSATE SODIUM 100 MG CAP PO (21:47)
[2018-06-05] MEDS: LORAZEPAM 2 MG INJ IV ×3 (01:18→17:42)
[2018-06-05] MEDS: PANTOPRAZOLE (EC) 40 MG TAB PO (05:36)
[2018-06-05] MEDS: BUMETANIDE 0.5 MG TAB PO ×2 (05:36→18:45)
[2018-06-05] MEDS: LACTULOSE 30ML CUP PO ×3 (05:36→21:10)
[2018-06-05] MEDS: HYDROmorphONE 0.5 MG/0.5 ML SYG IV ×3 (05:37→19:57)
[2018-06-05] MEDS: LEVOTHYROXINE 100 MCG TAB PO (06:13)
[2018-06-05] MEDS: ALBUTEROL/IPRATROPIUM (NEB) 3 ML AMP HHN ×3 (08:00→20:00)
[2018-06-05] MEDS: NIFEdipine (XL) 60 MG TAB PO (09:52)
[2018-06-05] MEDS: ALLOPURINOL 100 MG TAB PO (09:52)
[2018-06-05] MEDS: FERROUS SULFATE (EC) 325 MG TAB PO ×2 (09:53→21:10)
[2018-06-05] MEDS: METOPROLOL (XL) 50 MG TAB PO (09:53)
[2018-06-05] MEDS: SPIRONOLACTONE 50 MG TAB PO (09:53)
[2018-06-05] MEDS: SODIUM HYPOCHLORITE (1/40) 1 APPLIC BTL IRR (09:58)
[2018-06-05] MEDS: POVIDONE IODINE 10% 28.4 GM OINT TOP (09:59)
[2018-06-05] MEDS: HYDROCODONE/APAP (10/325) TAB PO ×3 (10:05→23:54)
[2018-06-05] MEDS: NICOTINE (14 MG/24 HR) PATCH TRANSDERM (10:08)
[2018-06-05] MEDS: DOCUSATE SODIUM 100 MG CAP PO (21:10)
[2018-06-06] MEDS: HYDROmorphONE 0.5 MG/0.5 ML SYG IV ×3 (01:55→14:29)
[2018-06-06] MEDS: LORAZEPAM 2 MG INJ IV ×2 (02:35→10:42)
[2018-06-06] MEDS: HYDROCODONE/APAP (10/325) TAB PO ×3 (04:05→16:18)
[2018-06-06] MEDS: LACTULOSE 30ML CUP PO ×2 (06:10→13:29)
[2018-06-06] MEDS: LEVOTHYROXINE 100 MCG TAB PO (06:11)
[2018-06-06] MEDS: PANTOPRAZOLE (EC) 40 MG TAB PO (06:11)
[2018-06-06] MEDS: BUMETANIDE 0.5 MG TAB PO (06:11)
[2018-06-06] MEDS: ALBUTEROL/IPRATROPIUM (NEB) 3 ML AMP HHN ×3 (08:00→15:05)
[2018-06-06] MEDS: NIFEdipine (XL) 60 MG TAB PO (08:23)
[2018-06-06] MEDS: SPIRONOLACTONE 50 MG TAB PO (08:23)
[2018-06-06] MEDS: METOPROLOL (XL) 50 MG TAB PO (08:23)
[2018-06-06] MEDS: ALLOPURINOL 100 MG TAB PO (08:23)
[2018-06-06] MEDS: FERROUS SULFATE (EC) 325 MG TAB PO (08:23)
[2018-06-06] MEDS: NICOTINE (14 MG/24 HR) PATCH TRANSDERM (08:23)
[2018-06-06 08:25] LABS: ABNORMAL IP MESSAGE 1; HEMATOCRIT 31.5 % (42.0-52.0); HEMOGLOBIN 9.4 g/dl (14.0-18.0); MEAN CORPUSCULAR HEMOGLOBIN 24.7 pg (29.0-33.0); MEAN CORPUSCULAR HGB CONC 29.8 g/dl (32.0-37.0); MEAN CORPUSCULAR VOLUME 82.7 fl (82.0-101.0); NUCLEATED RED BLOOD CELLS% 0.2 /100WBC (0.0-0.0); PLATELET COUNT 268 10^3/UL (140-415); POSITIVE DIFF @See below; RED BLOOD COUNT 3.81 10^6/ul (4.70-6.10); RED CELL DISTRIBUTION WIDTH 22.5 % (11.5-14.5)
[2018-06-06 08:25] LABS: WHITE BLOOD COUNT 12.1 10^3/ul (4.8-10.8)
[2018-06-06] MEDS: SODIUM HYPOCHLORITE (1/40) 1 APPLIC BTL IRR (08:25)
[2018-06-06] MEDS: POVIDONE IODINE 10% 28.4 GM OINT TOP (08:25)
[2018-06-06 08:31] LABS: ADD MAN DIFF? YES
[2018-06-06 08:41] LABS: ANION GAP 10 (5-13); BLOOD UREA NITROGEN 53 mg/dl (7-20); CARBON DIOXIDE 25 mmol/L (21-31); CHLORIDE 104 mmol/L (97-110); Estimated GFR 36 mL/min (>60); GLUCOSE 92 mg/dl (70-220); POTASSIUM 4.3 mmol/L (3.5-5.1); SODIUM 139 mmol/L (135-144)
[2018-06-06 08:58] LABS: ANISOCYTOSIS 1+ (0-0); BAND NEUTROPHILS #M 0.2 10^3/ul (0.0-0.6); BAND NEUTROPHILS % (M) 2 % (0-4); BASOPHIL #M 0.1 10^3/ul (0.0-0.0); BASOPHILS % (M) 1 % (0-2); BURR CELLS 1+ (0-0); EOSINOPHILS % (M) 4 % (0-7); LYMPHOCYTES #M 0.7 10^3/ul (0.8-2.9); LYMPHOCYTES % (M) 6 % (15-51); METAMYELOCYTES #M 0.1 10^3/ul (0.0-0.0); METAMYELOCYTES %M 1 % (0-0); MICROCYTOSIS 1+ (0-0); MONOCYTE #M 1.8 10^3/ul (0.3-0.9); MONOCYTES % (M) 15 % (0-11); MYELOCYTES #M 0.2 10^3/ul (0.0-0.0); MYELOCYTES % (M) 2 % (0-0); PLATELET ESTIMATE NORMAL; PLATELET MORPHOLOGY COMMENT @See below; POIKILOCYTOSIS 1+ (0-0); POLYCHROMASIA 2+ (0-0); REACTIVE LYMPHOCYTES #M 0.1 10^3/ul (0.0-0.0); REACTIVE LYMPHOCYTES% (M) 1 % (0-0); SEG NEUT #M 8.3 10^3/ul (1.6-7.5); SEGMENTED NEUTROPHILS (M) % 68 % (39-77); SMUDGE%M 68 % (0-0)
[2018-06-06 15:10] LABS: WHITE BLOOD COUNT 10.7 10^3/ul (4.8-10.8)
[2018-06-06 15:10] LABS: ABNORMAL IP MESSAGE 1; HEMATOCRIT 29.3 % (42.0-52.0); MEAN CORPUSCULAR HEMOGLOBIN 25.1 pg (29.0-33.0); MEAN CORPUSCULAR HGB CONC 30.7 g/dl (32.0-37.0); MEAN CORPUSCULAR VOLUME 81.8 fl (82.0-101.0); NUCLEATED RED BLOOD CELLS% 0.2 /100WBC (0.0-0.0); PLATELET COUNT 272 10^3/UL (140-415); POSITIVE DIFF @See below; RED BLOOD COUNT 3.58 10^6/ul (4.70-6.10); RED CELL DISTRIBUTION WIDTH 22.5 % (11.5-14.5)
[2018-06-06 15:13] LABS: ADD MAN DIFF? YES
[2018-06-06 15:53] LABS: ANISOCYTOSIS 2+ (0-0); BAND NEUTROPHILS #M 1.1 10^3/ul (0.0-0.6); BAND NEUTROPHILS % (M) 11 % (0-4); EOSINOPHILS % (M) 7 % (0-7); GIANT THROMBO% (M) 4 % (0-0); HYPOCHROMASIA 1+ (0-0); LYMPHOCYTES #M 0.9 10^3/ul (0.8-2.9); LYMPHOCYTES % (M) 9 % (15-51); METAMYELOCYTES #M 0.2 10^3/ul (0.0-0.0); METAMYELOCYTES %M 2 % (0-0); MICROCYTOSIS 2+ (0-0); MONOCYTE #M 1.1 10^3/ul (0.3-0.9); MONOCYTES % (M) 11 % (0-11); MYELOCYTES #M 0.2 10^3/ul (0.0-0.0); MYELOCYTES % (M) 2 % (0-0); PLATELET ESTIMATE NORMAL; POIKILOCYTOSIS 2+ (0-0); POLYCHROMASIA 1+ (0-0); SEG NEUT #M 6.3 10^3/ul (1.6-7.5); SEGMENTED NEUTROPHILS (M) % 58 % (39-77); SMUDGE%M 3 % (0-0)
[2018-06-06] MEDS ORDERED: BUMETANIDE 0.5 MG TAB PO (19:17)
== END 2018-06-06 19:20 | DRG 871 ==
LOC: E/R 09:13 → 5EC 11:09
DX: A41.9 Sepsis, unspecified organism (principal); G92 Toxic encephalopathy; I50.33 Acute on chronic diastolic (congestive) heart failure; N18.6 End stage renal disease; L03.116 Cellulitis of left lower limb; M86.672 Other chronic osteomyelitis, left ankle and foot; N17.9 Acute kidney failure, unspecified; L03.115 Cellulitis of right lower limb; I13.2 Hypertensive heart and chronic kidney disease with heart failure and with stage 5 chronic kidney disease, or end stage renal disease; F10.229 Alcohol dependence with intoxication, unspecified; K70.31 Alcoholic cirrhosis of liver with ascites; Y90.5 Blood alcohol level of 100-119 mg/100 ml; F17.200 Nicotine dependence, unspecified, uncomplicated; F10.129 Alcohol abuse with intoxication, unspecified; J44.9 Chronic obstructive pulmonary disease, unspecified; I25.10 Atherosclerotic heart disease of native coronary artery without angina pectoris; N40.0 Benign prostatic hyperplasia without lower urinary tract symptoms; E79.0 Hyperuricemia without signs of inflammatory arthritis and tophaceous disease; Z91.19 Patient's noncompliance with other medical treatment and regimen; M71.21 Synovial cyst of popliteal space [Baker], right knee; E03.9 Hypothyroidism, unspecified; D64.9 Anemia, unspecified; D69.6 Thrombocytopenia, unspecified; E87.70 Fluid overload, unspecified; L97.529 Non-pressure chronic ulcer of other part of left foot with unspecified severity
CPT/HCPCS: 36415; 70450; 71045; 73630-LT; 76705; 80048; 80053; 80307; 81003; 82140; 82550; 84484; 85025; 85610; 85730; 87081; 90686; 93005; 93922; 94640; 99285-25

== ENCOUNTER 2018-06-22 06:04 | Emergency (ER) | payer BC ==
[2018-06-22] MEDS: CEPHALEXIN 500 MG CAP PO (06:35)
[2018-06-22] MEDS: KETOROLAC 30 MG INJ IM (06:35)
[2018-06-22] MEDS: TRIMETHOPRIM/SULFAMETHOX (DS) TAB PO (06:35)
== END 2018-06-22 11:14 | disposition home or self-care (01) ==
LOC: E/R 06:04
DX: L03.116 Cellulitis of left lower limb (principal); R40.2142 Coma scale, eyes open, spontaneous, at arrival to emergency department; R40.2362 Coma scale, best motor response, obeys commands, at arrival to emergency department; R40.2252 Coma scale, best verbal response, oriented, at arrival to emergency department; N18.6 End stage renal disease; Z87.891 Personal history of nicotine dependence; Z99.2 Dependence on renal dialysis
CPT/HCPCS: 96372; 99284-25

== ENCOUNTER 2018-07-25 15:11 | Inpatient (IN) | payer BC ==
[2018-07-25] MEDS: PIPER-TAZO 3.375 GM IV (PMX) 100 ML IVPB (17:06)
[2018-07-25] MEDS: SODIUM CHLORIDE 0.9% 1L BAG IV* (17:06)
[2018-07-25 17:16] LABS: WHITE BLOOD COUNT 19.4 10^3/ul (4.8-10.8)
[2018-07-25 17:16] LABS: ABNORMAL IP MESSAGE 1; HEMOGLOBIN 8.4 g/dl (14.0-18.0); MEAN CORPUSCULAR HEMOGLOBIN 24.1 pg (29.0-33.0); MEAN CORPUSCULAR VOLUME 80.5 fl (82.0-101.0); PLATELET COUNT 227 10^3/UL (140-415); POSITIVE DIFF @See below; RED BLOOD COUNT 3.48 10^6/ul (4.70-6.10); RED CELL DISTRIBUTION WIDTH 22.4 % (11.5-14.5)
[2018-07-25 17:19] LABS: ADD MAN DIFF? YES
[2018-07-25] MEDS: VANCOMYCIN 1 GM (PMX) 250 ML IVPB (17:20)
[2018-07-25 17:25] LABS: ADD UMIC NO; UR ASCORBIC ACID NEGATIVE (NEGATIVE); UR BILIRUBIN (Dip) NEGATIVE (NEGATIVE); UR BLOOD (Dip) NEGATIVE (NEGATIVE); UR CLARITY CLEAR (CLEAR); UR COLOR STRAW (YELLOW); UR GLUCOSE (Dip) NEGATIVE (NEGATIVE); UR KETONES (Dip) NEGATIVE (NEGATIVE); UR LEUKOCYTE ESTERASE (Dip) NEGATIVE Leu/ul (NEGATIVE); UR NITRITE (Dip) NEGATIVE (NEGATIVE); UR SPECIFIC GRAVITY (Dip) 1.008 (1.003-1.030); UR TOTAL PROTEIN (Dip) NEGATIVE (NEGATIVE); UR UROBILINOGEN (Dip) NEGATIVE (NEGATIVE)
[2018-07-25] MEDS ORDERED: ONDANSETRON 4 MG INJ IV ×2 (17:30→23:30)
[2018-07-25] MEDS ORDERED: ACETAMINOPHEN 325 MG TAB PO (17:30)
[2018-07-25 17:36] LABS: INR 1.19; PROTIME 15.3 Sec (11.9-14.9); PT RATIO 1.2
[2018-07-25 17:37] LABS: PARTIAL THROMBOPLASTIN TIME 33.6 Sec (23.0-35.0)
[2018-07-25 17:57] LABS: ANION GAP 8 (5-13); BLOOD UREA NITROGEN 49 mg/dl (7-20); CALCIUM 8.6 mg/dl (8.4-10.2); CARBON DIOXIDE 25 mmol/L (21-31); CHLORIDE 104 mmol/L (97-110); CREATININE 1.93 mg/dl (0.61-1.24); Estimated GFR 36 mL/min (>60); GLUCOSE 127 mg/dl (70-220); SODIUM 137 mmol/L (135-144)
[2018-07-25 18:01] LABS: POTASSIUM 6.8 mmol/L (3.5-5.1)
[2018-07-25] MEDS ORDERED: NA POLYST SULFON 15 GM/60 ML BTL PO (18:02)
[2018-07-25 18:09] LABS: TROPONIN-I < 0.012 ng/ml (0.000-0.120)
[2018-07-25] MEDS: CA CHLORIDE 10% 10 ML SYRINGE IV (18:13)
[2018-07-25] MEDS: NA BICARBONATE 8.4% 50 ML SYG IV (18:13)
[2018-07-25 18:27] LABS: ANISOCYTOSIS 1+ (0-0); BAND NEUTROPHILS #M 0.5 10^3/ul (0.0-0.6); BAND NEUTROPHILS % (M) 3 % (0-4); EOSINOPHILS % (M) 5 % (0-7); GIANT THROMBO% (M) 2 % (0-0); HYPOCHROMASIA 1+ (0-0); LYMPHOCYTES #M 1.3 10^3/ul (0.8-2.9); LYMPHOCYTES % (M) 7 % (15-51); MICROCYTOSIS 1+ (0-0); MONOCYTE #M 2.1 10^3/ul (0.3-0.9); MONOCYTES % (M) 11 % (0-11); MYELOCYTES #M 0.5 10^3/ul (0.0-0.0); MYELOCYTES % (M) 3 % (0-0); PLATELET ESTIMATE NORMAL; POIKILOCYTOSIS 1+ (0-0); POLYCHROMASIA 2+ (0-0); SEG NEUT #M 13.9 10^3/ul (1.6-7.5); SEGMENTED NEUTROPHILS (M) % 71 % (39-77); SMUDGE%M 1 % (0-0)
[2018-07-25] MEDS: NA POLYST SULFON 15 GM/60 ML BTL PO (19:20)
[2018-07-25] MEDS: oxyCODONE (CR) 10 MG TAB [oxyCONTIN] PO (23:30)
[2018-07-25] MEDS ORDERED: ACETAMINOPHEN 500 MG TAB PO (23:30)
[2018-07-25] MEDS ORDERED: VANCOMYCIN IV PER PHARMACY XX (23:30)
[2018-07-26] MEDS: ALBUTEROL HFA 8 GM INHALER INH ×6 (01:00→21:00)
[2018-07-26] MEDS: ERTAPENEM SODIUM 1 GM in SOD CHLORIDE 0.9% 100 ML IVPB (01:48)
[2018-07-26] MEDS: DAPTOMYCIN 600 MG in SOD CHLORIDE 0.9% 100 ML IVPB (02:11)
[2018-07-26 05:57] LABS: ABNORMAL IP MESSAGE 1; HEMATOCRIT 28.4 % (42.0-52.0); HEMOGLOBIN 8.7 g/dl (14.0-18.0); MEAN CORPUSCULAR HEMOGLOBIN 24.3 pg (29.0-33.0); MEAN CORPUSCULAR HGB CONC 30.6 g/dl (32.0-37.0); MEAN CORPUSCULAR VOLUME 79.3 fl (82.0-101.0); NUCLEATED RED BLOOD CELLS% 0.1 /100WBC (0.0-0.0); PLATELET COUNT 254 10^3/UL (140-415); POSITIVE DIFF @See below; RED BLOOD COUNT 3.58 10^6/ul (4.70-6.10); RED CELL DISTRIBUTION WIDTH 22.7 % (11.5-14.5)
[2018-07-26 05:57] LABS: WHITE BLOOD COUNT 16.9 10^3/ul (4.8-10.8)
[2018-07-26] MEDS ORDERED: PIPER-TAZO 3.375 GM IV (PMX) 100 ML IVPB (06:00)
[2018-07-26] MEDS: oxyCODONE (CR) 10 MG TAB [oxyCONTIN] PO ×3 (06:06→17:43)
[2018-07-26] MEDS: PANTOPRAZOLE (EC) 40 MG TAB PO (06:06)
[2018-07-26 06:17] LABS: ANION GAP 8 (5-13); BLOOD UREA NITROGEN 44 mg/dl (7-20); CALCIUM 8.9 mg/dl (8.4-10.2); CARBON DIOXIDE 25 mmol/L (21-31); CHLORIDE 111 mmol/L (97-110); CREATININE 1.62 mg/dl (0.61-1.24); Estimated GFR 44 mL/min (>60); GLUCOSE 80 mg/dl (70-220); POTASSIUM 5.4 mmol/L (3.5-5.1); SODIUM 144 mmol/L (135-144)
[2018-07-26 06:27] LABS: ADD MAN DIFF? YES
[2018-07-26] MEDS: LEVOTHYROXINE 100 MCG TAB PO (07:46)
[2018-07-26] MEDS: FERROUS SULFATE (EC) 325 MG TAB PO (08:16)
[2018-07-26] MEDS: RIFAXIMIN 550 MG TAB PO ×2 (08:16→21:00)
[2018-07-26] MEDS: NA BICARBONATE 650 MG TAB PO ×3 (08:16→20:47)
[2018-07-26] MEDS: GABAPENTIN 100 MG CAP PO ×3 (08:16→20:49)
[2018-07-26] MEDS: ALLOPURINOL 100 MG TAB PO (08:16)
[2018-07-26] MEDS: FUROSEMIDE 40 MG TAB PO (08:16)
[2018-07-26] MEDS: THIAMINE 100 MG TAB PO (08:17)
[2018-07-26] MEDS: IPRATROPIUM (HFA) 12.9 GM INHALER INH (08:17)
[2018-07-26] MEDS: FOLIC ACID 1 MG TAB PO (08:17)
[2018-07-26] MEDS: METOPROLOL (XL) 100 MG TAB PO (08:17)
[2018-07-26] MEDS: ARFORMOTEROL TARTRATE 15MCG/2 ML AMP HHN ×2 (08:38→19:44)
[2018-07-26] MEDS: BUDESONIDE (NEB) 0.5MG/2ML AMP HHN ×2 (08:38→19:44)
[2018-07-26] MEDS ORDERED: SPIRONOLACTONE 50 MG TAB PO (09:00)
[2018-07-26 09:15] LABS: ANISOCYTOSIS 2+ (0-0); BAND NEUTROPHILS #M 0.8 10^3/ul (0.0-0.6); BAND NEUTROPHILS % (M) 5 % (0-4); BASOPHIL #M 0.3 10^3/ul (0.0-0.0); BASOPHILS % (M) 2 % (0-2); BURR CELLS 1+ (0-0); GIANT THROMBO% (M) 4 % (0-0); LYMPHOCYTES #M 0.6 10^3/ul (0.8-2.9); LYMPHOCYTES % (M) 4 % (15-51); METAMYELOCYTES #M 0.1 10^3/ul (0.0-0.0); METAMYELOCYTES %M 1 % (0-0); MICROCYTOSIS 1+ (0-0); MONOCYTE #M 0.6 10^3/ul (0.3-0.9); MONOCYTES % (M) 4 % (0-11); MYELOCYTES #M 0.3 10^3/ul (0.0-0.0); MYELOCYTES % (M) 2 % (0-0); PLATELET ESTIMATE NORMAL; POIKILOCYTOSIS 1+ (0-0); POLYCHROMASIA 3+ (0-0); PROMYELOCYTES #M 0.5 10^3/ul (0-0); PROMYELOCYTES % (M) 3 % (0-0); SEG NEUT #M 13.5 10^3/ul (1.6-7.5); SEGMENTED NEUTROPHILS (M) % 79 % (39-77); SMUDGE%M 3 % (0-0); TARGET CELLS 1+ (0-0)
[2018-07-26] MEDS: DEXTROSE 5%-0.45% NACL 1,000 ML IV (18:00)
[2018-07-26] MEDS ORDERED: DOCUSATE SODIUM 100 MG CAP PO (19:32)
[2018-07-26] MEDS ORDERED: TAMSULOSIN (SR) 0.4 MG CAP PO (19:32)
[2018-07-26] MEDS: TAMSULOSIN (SR) 0.4 MG CAP PO (20:48)
[2018-07-26] MEDS: DOCUSATE SODIUM 100 MG CAP PO (20:48)
[2018-07-26] MEDS: oxyCODONE 15 MG TAB PO (23:43)
[2018-07-26] MEDS: LORAZEPAM 2 MG INJ IV (23:43)
[2018-07-27] MEDS: ALBUMIN HUMAN 25% 100 ML IV
[2018-07-27] MEDS: ERTAPENEM SODIUM 1 GM in SOD CHLORIDE 0.9% 100 ML IVPB
[2018-07-27] MEDS: ALBUTEROL HFA 8 GM INHALER INH ×6 (01:00→21:00)
[2018-07-27] MEDS: DAPTOMYCIN 600 MG in SOD CHLORIDE 0.9% 100 ML IVPB (01:20)
[2018-07-27] MEDS: PANTOPRAZOLE (EC) 40 MG TAB PO (05:43)
[2018-07-27] MEDS: oxyCODONE 15 MG TAB PO ×3 (05:43→18:31)
[2018-07-27] MEDS: LORAZEPAM 0.5 MG TAB PO ×2 (05:43→12:39)
[2018-07-27] MEDS: LEVOTHYROXINE 100 MCG TAB PO (05:44)
[2018-07-27 06:33] LABS: ANION GAP 12 (5-13); BLOOD UREA NITROGEN 41 mg/dl (7-20); CALCIUM 8.5 mg/dl (8.4-10.2); CARBON DIOXIDE 22 mmol/L (21-31); CHLORIDE 107 mmol/L (97-110); Estimated GFR 39 mL/min (>60); GLUCOSE 85 mg/dl (70-220); POTASSIUM 5.8 mmol/L (3.5-5.1); SODIUM 141 mmol/L (135-144)
[2018-07-27 06:33] LABS: CREATINE KINASE 28 IU/L (23-200)
[2018-07-27 07:27] LABS: WHITE BLOOD COUNT 20.2 10^3/ul (4.8-10.8)
[2018-07-27 07:27] LABS: ABNORMAL IP MESSAGE 1; HEMATOCRIT 31.8 % (42.0-52.0); HEMOGLOBIN 9.6 g/dl (14.0-18.0); MEAN CORPUSCULAR HEMOGLOBIN 24.4 pg (29.0-33.0); MEAN CORPUSCULAR HGB CONC 30.2 g/dl (32.0-37.0); MEAN CORPUSCULAR VOLUME 80.9 fl (82.0-101.0); NUCLEATED RED BLOOD CELLS% 0.1 /100WBC (0.0-0.0); PLATELET COUNT 285 10^3/UL (140-415); POSITIVE DIFF @See below; RED BLOOD COUNT 3.93 10^6/ul (4.70-6.10); RED CELL DISTRIBUTION WIDTH 22.9 % (11.5-14.5)
[2018-07-27 07:30] LABS: ADD MAN DIFF? YES
[2018-07-27] MEDS: ARFORMOTEROL TARTRATE 15MCG/2 ML AMP HHN ×2 (09:00→20:00)
[2018-07-27] MEDS: BUDESONIDE (NEB) 0.5MG/2ML AMP HHN ×2 (09:00→20:00)
[2018-07-27] MEDS: RIFAXIMIN 550 MG TAB PO ×3 (09:00→21:12)
[2018-07-27] MEDS: FUROSEMIDE 40 MG TAB PO (09:34)
[2018-07-27] MEDS: NA BICARBONATE 650 MG TAB PO ×3 (09:35→21:12)
[2018-07-27] MEDS: GABAPENTIN 100 MG CAP PO ×3 (09:35→21:12)
[2018-07-27] MEDS: FERROUS SULFATE (EC) 325 MG TAB PO (09:35)
[2018-07-27] MEDS: METOPROLOL (XL) 100 MG TAB PO (09:35)
[2018-07-27] MEDS: ALLOPURINOL 100 MG TAB PO (09:35)
[2018-07-27] MEDS: THIAMINE 100 MG TAB PO (09:35)
[2018-07-27] MEDS: FOLIC ACID 1 MG TAB PO (09:35)
[2018-07-27 09:44] LABS: ANISOCYTOSIS 2+ (0-0); BASOPHIL #M 0.4 10^3/ul (0.0-0.0); BASOPHILS % (M) 2 % (0-2); EOSINOPHILS % (M) 4 % (0-7); GIANT THROMBO% (M) 1 % (0-0); HYPOCHROMASIA 1+ (0-0); LYMPHOCYTES % (M) 5 % (15-51); METAMYELOCYTES #M 0.4 10^3/ul (0.0-0.0); METAMYELOCYTES %M 2 % (0-0); MICROCYTOSIS 1+ (0-0); MONOCYTES % (M) 10 % (0-11); MYELOCYTES % (M) 5 % (0-0); OVALOCYTES 1+ (0-0); PLATELET ESTIMATE NORMAL; PLATELET MORPHOLOGY COMMENT @See below; POIKILOCYTOSIS 2+ (0-0); POLYCHROMASIA 2+ (0-0); PROMYELOCYTES #M 0.4 10^3/ul (0-0); PROMYELOCYTES % (M) 2 % (0-0); SEGMENTED NEUTROPHILS (M) % 68 % (39-77); SMUDGE%M 4 % (0-0)
[2018-07-27] MEDS: NA POLYST SULFON 15 GM/60 ML BTL PO (12:42)
[2018-07-27] MEDS: DEXTROSE 5%-0.45% NACL 1,000 ML IV (14:00)
[2018-07-27] MEDS: SODIUM HYPOCHLORITE (1/40) 1 APPLIC BTL IRR (16:56)
[2018-07-27] MEDS: LORAZEPAM 1 MG TAB PO (18:31)
[2018-07-27] MEDS: EPOETIN 10000 UNITS/1 ML INJ (ESRD) SC (18:56)
[2018-07-27] MEDS: DOCUSATE SODIUM 100 MG CAP PO (21:12)
[2018-07-27] MEDS: TAMSULOSIN (SR) 0.4 MG CAP PO (21:12)
[2018-07-28] MEDS: oxyCODONE 15 MG TAB PO ×4 (00:13→18:38)
[2018-07-28] MEDS: LORAZEPAM 1 MG TAB PO ×4 (00:13→18:38)
[2018-07-28] MEDS: ALBUTEROL HFA 8 GM INHALER INH ×6 (01:00→20:43)
[2018-07-28] MEDS: ERTAPENEM SODIUM 1 GM in SOD CHLORIDE 0.9% 100 ML IVPB (01:17)
[2018-07-28] MEDS: DAPTOMYCIN 600 MG in SOD CHLORIDE 0.9% 100 ML IVPB (02:38)
[2018-07-28 05:58] LABS: ABNORMAL IP MESSAGE 1; HEMOGLOBIN 9.6 g/dl (14.0-18.0); MEAN CORPUSCULAR HEMOGLOBIN 24.5 pg (29.0-33.0); MEAN CORPUSCULAR VOLUME 81.6 fl (82.0-101.0); NUCLEATED RED BLOOD CELLS% 0.2 /100WBC (0.0-0.0); PLATELET COUNT 305 10^3/UL (140-415); POSITIVE DIFF @See below; RED BLOOD COUNT 3.92 10^6/ul (4.70-6.10); RED CELL DISTRIBUTION WIDTH 22.5 % (11.5-14.5)
[2018-07-28 05:58] LABS: WHITE BLOOD COUNT 17.6 10^3/ul (4.8-10.8)
[2018-07-28 06:08] LABS: ADD MAN DIFF? YES
[2018-07-28 06:12] LABS: ANION GAP 9 (5-13); BLOOD UREA NITROGEN 37 mg/dl (7-20); CALCIUM 8.4 mg/dl (8.4-10.2); CARBON DIOXIDE 26 mmol/L (21-31); CHLORIDE 105 mmol/L (97-110); CREATININE 1.73 mg/dl (0.61-1.24); Estimated GFR 40 mL/min (>60); GLUCOSE 84 mg/dl (70-220); POTASSIUM 4.9 mmol/L (3.5-5.1); SODIUM 140 mmol/L (135-144); URIC ACID 9.6 mg/dl (3.1-7.9)
[2018-07-28 06:15] LABS: CREATINE KINASE < 20 IU/L (23-200)
[2018-07-28] MEDS: PANTOPRAZOLE (EC) 40 MG TAB PO (06:23)
[2018-07-28] MEDS: LEVOTHYROXINE 100 MCG TAB PO (06:23)
[2018-07-28 07:24] LABS: ANISOCYTOSIS 2+ (0-0); BAND NEUTROPHILS #M 0.1 10^3/ul (0.0-0.6); BAND NEUTROPHILS % (M) 1 % (0-4); BASOPHIL #M 0.1 10^3/ul (0.0-0.0); BASOPHILS % (M) 1 % (0-2); BURR CELLS 1+ (0-0); EOSINOPHILS % (M) 8 % (0-7); GIANT THROMBO% (M) 2 % (0-0); HYPOCHROMASIA 1+ (0-0); LYMPHOCYTES #M 0.3 10^3/ul (0.8-2.9); LYMPHOCYTES % (M) 2 % (15-51); MICROCYTOSIS 1+ (0-0); MONOCYTES % (M) 23 % (0-11); MYELOCYTES #M 0.5 10^3/ul (0.0-0.0); MYELOCYTES % (M) 3 % (0-0); OVALOCYTES 1+ (0-0); PLATELET ESTIMATE NORMAL; POIKILOCYTOSIS 1+ (0-0); POLYCHROMASIA 3+ (0-0); PROMYELOCYTES #M 0.3 10^3/ul (0-0); PROMYELOCYTES % (M) 2 % (0-0); REACTIVE LYMPHOCYTES #M 0.1 10^3/ul (0.0-0.0); REACTIVE LYMPHOCYTES% (M) 1 % (0-0); SEG NEUT #M 10.4 10^3/ul (1.6-7.5); SEGMENTED NEUTROPHILS (M) % 59 % (39-77); SMUDGE%M 1 % (0-0); TEAR DROP CELLS 1+ (0-0)
[2018-07-28] MEDS: BUDESONIDE (NEB) 0.5MG/2ML AMP HHN ×2 (09:00→20:00)
[2018-07-28] MEDS: SODIUM HYPOCHLORITE (1/40) 1 APPLIC BTL IRR (09:00)
[2018-07-28] MEDS: ARFORMOTEROL TARTRATE 15MCG/2 ML AMP HHN ×2 (09:00→20:00)
[2018-07-28] MEDS: ALLOPURINOL 100 MG TAB PO (10:00)
[2018-07-28] MEDS: FERROUS SULFATE (EC) 325 MG TAB PO (10:00)
[2018-07-28] MEDS: FOLIC ACID 1 MG TAB PO (10:01)
[2018-07-28] MEDS: GABAPENTIN 100 MG CAP PO ×3 (10:01→20:41)
[2018-07-28] MEDS: METOPROLOL (XL) 100 MG TAB PO (10:01)
[2018-07-28] MEDS: RIFAXIMIN 550 MG TAB PO ×2 (10:01→20:41)
[2018-07-28] MEDS: NA BICARBONATE 650 MG TAB PO ×3 (10:01→20:41)
[2018-07-28] MEDS: FUROSEMIDE 40 MG TAB PO (10:01)
[2018-07-28] MEDS: THIAMINE 100 MG TAB PO (10:01)
[2018-07-28] MEDS: DOCUSATE SODIUM 100 MG CAP PO (20:41)
[2018-07-28] MEDS: TAMSULOSIN (SR) 0.4 MG CAP PO (20:41)
[2018-07-29 00:05] LABS: CREATININE,URINE RANDOM 80.43 mg/dl (20-370); PROTEIN/CREAT RATIO 0.14 RATIO
[2018-07-29 00:07] LABS: SODIUM,URINE RANDOM 52 mmol/L (30-90)
[2018-07-29] MEDS: oxyCODONE 15 MG TAB PO ×3 (00:13→20:11)
[2018-07-29] MEDS: LORAZEPAM 1 MG TAB PO ×3 (00:13→20:11)
[2018-07-29] MEDS: ERTAPENEM SODIUM 1 GM in SOD CHLORIDE 0.9% 100 ML IVPB (00:36)
[2018-07-29] MEDS: ALBUTEROL HFA 8 GM INHALER INH ×6 (00:40→20:21)
[2018-07-29] MEDS: DAPTOMYCIN 600 MG in SOD CHLORIDE 0.9% 100 ML IVPB (01:41)
[2018-07-29] MEDS: PANTOPRAZOLE (EC) 40 MG TAB PO (06:26)
[2018-07-29] MEDS: LEVOTHYROXINE 100 MCG TAB PO (06:26)
[2018-07-29] MEDS: ARFORMOTEROL TARTRATE 15MCG/2 ML AMP HHN ×2 (08:00→20:33)
[2018-07-29] MEDS: BUDESONIDE (NEB) 0.5MG/2ML AMP HHN ×2 (08:01→20:33)
[2018-07-29] MEDS: SODIUM HYPOCHLORITE (1/40) 1 APPLIC BTL IRR (09:41)
[2018-07-29] MEDS: METOPROLOL (XL) 100 MG TAB PO (09:41)
[2018-07-29] MEDS: NA BICARBONATE 650 MG TAB PO ×3 (09:41→20:11)
[2018-07-29] MEDS: FOLIC ACID 1 MG TAB PO (09:41)
[2018-07-29] MEDS: GABAPENTIN 100 MG CAP PO ×3 (09:42→20:11)
[2018-07-29] MEDS: FUROSEMIDE 40 MG TAB PO (09:42)
[2018-07-29] MEDS: RIFAXIMIN 550 MG TAB PO ×2 (09:42→20:11)
[2018-07-29] MEDS: ALLOPURINOL 100 MG TAB PO (09:42)
[2018-07-29] MEDS: FERROUS SULFATE (EC) 325 MG TAB PO (09:42)
[2018-07-29] MEDS: THIAMINE 100 MG TAB PO (09:42)
[2018-07-29] MEDS: DOCUSATE SODIUM 100 MG CAP PO (20:11)
[2018-07-29] MEDS: TAMSULOSIN (SR) 0.4 MG CAP PO (20:11)
[2018-07-29] MEDS: SOD CHLORIDE 0.45% 1,000 ML IV (20:16)
[2018-07-30] MEDS: ALBUTEROL HFA 8 GM INHALER INH ×6 (00:53→21:00)
[2018-07-30] MEDS: ERTAPENEM SODIUM 1 GM in SOD CHLORIDE 0.9% 100 ML IVPB (00:53)
[2018-07-30] MEDS: DAPTOMYCIN 600 MG in SOD CHLORIDE 0.9% 100 ML IVPB (01:50)
[2018-07-30] MEDS: LORAZEPAM 1 MG TAB PO ×3 (01:53→20:39)
[2018-07-30] MEDS: oxyCODONE 15 MG TAB PO ×3 (01:54→20:39)
[2018-07-30] MEDS: LEVOTHYROXINE 100 MCG TAB PO (06:00)
[2018-07-30] MEDS: PANTOPRAZOLE (EC) 40 MG TAB PO (06:00)
[2018-07-30] MEDS ORDERED: LIDOCAINE 2% (SDV) 5 ML INJ (07:00)
[2018-07-30] MEDS ORDERED: ONDANSETRON 4 MG INJ (07:00)
[2018-07-30] MEDS: BUDESONIDE (NEB) 0.5MG/2ML AMP HHN ×2 (07:48→20:00)
[2018-07-30] MEDS: ARFORMOTEROL TARTRATE 15MCG/2 ML AMP HHN ×2 (07:48→20:00)
[2018-07-30] MEDS: GABAPENTIN 100 MG CAP PO ×3 (09:11→20:41)
[2018-07-30] MEDS: ALLOPURINOL 100 MG TAB PO (09:11)
[2018-07-30] MEDS: FOLIC ACID 1 MG TAB PO (09:11)
[2018-07-30] MEDS: RIFAXIMIN 550 MG TAB PO ×2 (09:11→20:41)
[2018-07-30] MEDS: THIAMINE 100 MG TAB PO (09:11)
[2018-07-30] MEDS: NA BICARBONATE 650 MG TAB PO ×3 (09:11→20:42)
[2018-07-30] MEDS: FERROUS SULFATE (EC) 325 MG TAB PO (09:11)
[2018-07-30] MEDS: FUROSEMIDE 40 MG TAB PO (09:12)
[2018-07-30] MEDS: METOPROLOL (XL) 100 MG TAB PO (09:12)
[2018-07-30] MEDS: SODIUM HYPOCHLORITE (1/40) 1 APPLIC BTL IRR (09:12)
[2018-07-30 14:23] LABS: WHITE BLOOD COUNT 13.7 10^3/ul (4.8-10.8)
[2018-07-30 14:23] LABS: ABNORMAL IP MESSAGE 1; HEMATOCRIT 30.1 % (42.0-52.0); HEMOGLOBIN 9.3 g/dl (14.0-18.0); MEAN CORPUSCULAR HEMOGLOBIN 24.6 pg (29.0-33.0); MEAN CORPUSCULAR HGB CONC 30.9 g/dl (32.0-37.0); MEAN CORPUSCULAR VOLUME 79.6 fl (82.0-101.0); NUCLEATED RED BLOOD CELLS% 0.1 /100WBC (0.0-0.0); PLATELET COUNT 222 10^3/UL (140-415); POSITIVE DIFF @See below; RED BLOOD COUNT 3.78 10^6/ul (4.70-6.10); RED CELL DISTRIBUTION WIDTH 22.8 % (11.5-14.5)
[2018-07-30 14:29] LABS: ADD MAN DIFF? YES
[2018-07-30] MEDS ORDERED: BUPIVACAINE 0.5% (SDV) 30 ML INJ (14:43)
[2018-07-30] MEDS ORDERED: LIDOCAINE 2% (MDV) 20 ML INJ ×2 (14:43→14:44)
[2018-07-30 14:48] LABS: ANISOCYTOSIS 2+ (0-0); BAND NEUTROPHILS #M 0.6 10^3/ul (0.0-0.6); BAND NEUTROPHILS % (M) 5 % (0-4); BASOPHIL #M 0.1 10^3/ul (0.0-0.0); BASOPHILS % (M) 1 % (0-2); BURR CELLS 1+ (0-0); ELLIPTO 1+ (0-0); EOSINOPHILS % (M) 6 % (0-7); GIANT THROMBO% (M) 6 % (0-0); HYPOCHROMASIA 1+ (0-0); LYMPHOCYTES #M 0.4 10^3/ul (0.8-2.9); LYMPHOCYTES % (M) 3 % (15-51); METAMYELOCYTES #M 0.2 10^3/ul (0.0-0.0); METAMYELOCYTES %M 2 % (0-0); MICROCYTOSIS 1+ (0-0); MONOCYTES % (M) 22 % (0-11); MYELOCYTES #M 0.1 10^3/ul (0.0-0.0); MYELOCYTES % (M) 1 % (0-0); OVALOCYTES 1+ (0-0); PLATELET ESTIMATE NORMAL; POIKILOCYTOSIS 1+ (0-0); POLYCHROMASIA 3+ (0-0); PROMYELOCYTES #M 0.4 10^3/ul (0-0); PROMYELOCYTES % (M) 3 % (0-0); REACTIVE LYMPHOCYTES #M 0.5 10^3/ul (0.0-0.0); REACTIVE LYMPHOCYTES% (M) 4 % (0-0); SEG NEUT #M 7.3 10^3/ul (1.6-7.5); SEGMENTED NEUTROPHILS (M) % 53 % (39-77); SMUDGE%M 6 % (0-0)
[2018-07-30 14:52] LABS: ANION GAP 10 (5-13); BLOOD UREA NITROGEN 40 mg/dl (7-20); CALCIUM 8.9 mg/dl (8.4-10.2); CARBON DIOXIDE 25 mmol/L (21-31); CHLORIDE 101 mmol/L (97-110); CREATININE 1.87 mg/dl (0.61-1.24); Estimated GFR 37 mL/min (>60); GLUCOSE 89 mg/dl (70-220); POTASSIUM 4.5 mmol/L (3.5-5.1); SODIUM 136 mmol/L (135-144)
[2018-07-30] MEDS ORDERED: ETOMIDATE 20 MG INJ (15:21)
[2018-07-30] MEDS ORDERED: MIDAZOLAM 1 MG/ML 2 ML INJ (15:21)
[2018-07-30] MEDS ORDERED: FENTAnyl 50 MCG/ML VIAL (15:21)
[2018-07-30] MEDS ORDERED: ROPIVACAINE 0.5 % 30 ML VIAL (15:22)
[2018-07-30] MEDS ORDERED: METOCLOPRAMIDE 10 MG INJ (15:22)
[2018-07-30] MEDS ORDERED: FENTAnyl 50 MCG/ML VIAL IV ×2 (15:30)
[2018-07-30] MEDS ORDERED: HYDROmorphONE 1 MG/5 ML IV SYRINGE IV ×2 (15:30)
[2018-07-30] MEDS ORDERED: ONDANSETRON 4 MG INJ IV (15:30)
[2018-07-30] MEDS ORDERED: LEVALBUTEROL (NEB) 1.25 MG/0.5 ML AMP HHN (15:30)
[2018-07-30] MEDS ORDERED: IPRATROPIUM (NEB) 0.5 MG/2.5 ML AMP HHN (15:30)
[2018-07-30] MEDS ORDERED: DIPHENHYDRAMINE 50 MG INJ IV (15:30)
[2018-07-30] MEDS: POLYMYXIN/BACITRACIN 1L IRRIG IRR (16:50)
[2018-07-30] MEDS: EPOETIN 10000 UNITS/1 ML INJ (ESRD) SC (17:00)
[2018-07-30] MEDS: SOD CHLORIDE 0.45% 1,000 ML IV (19:00)
[2018-07-30] MEDS: SOD CHLORIDE 0.9% 1,000 ML IV (20:00)
[2018-07-30] MEDS: DOCUSATE SODIUM 100 MG CAP PO (20:40)
[2018-07-30] MEDS: TAMSULOSIN (SR) 0.4 MG CAP PO (20:42)
[2018-07-31] MEDS: ALBUTEROL HFA 8 GM INHALER INH ×6 (00:49→21:00)
[2018-07-31] MEDS: ERTAPENEM SODIUM 1 GM in SOD CHLORIDE 0.9% 100 ML IVPB (01:25)
[2018-07-31] MEDS: DAPTOMYCIN 600 MG in SOD CHLORIDE 0.9% 100 ML IVPB (02:29)
[2018-07-31] MEDS: oxyCODONE 15 MG TAB PO ×3 (02:30→21:31)
[2018-07-31] MEDS: LORAZEPAM 1 MG TAB PO ×3 (02:30→21:33)
[2018-07-31] MEDS: LEVOTHYROXINE 100 MCG TAB PO (06:12)
[2018-07-31] MEDS: PANTOPRAZOLE (EC) 40 MG TAB PO (06:12)
[2018-07-31] MEDS: BUDESONIDE (NEB) 0.5MG/2ML AMP HHN ×2 (09:00→20:00)
[2018-07-31] MEDS: NA BICARBONATE 650 MG TAB PO ×3 (09:00→21:31)
[2018-07-31] MEDS: ARFORMOTEROL TARTRATE 15MCG/2 ML AMP HHN ×2 (09:00→20:00)
[2018-07-31] MEDS: SODIUM HYPOCHLORITE (1/40) 1 APPLIC BTL IRR (09:00)
[2018-07-31] MEDS: GABAPENTIN 100 MG CAP PO ×3 (09:07→21:31)
[2018-07-31] MEDS: FERROUS SULFATE (EC) 325 MG TAB PO (09:07)
[2018-07-31] MEDS: THIAMINE 100 MG TAB PO (09:07)
[2018-07-31] MEDS: FOLIC ACID 1 MG TAB PO (09:08)
[2018-07-31] MEDS: ALLOPURINOL 100 MG TAB PO (09:08)
[2018-07-31] MEDS: RIFAXIMIN 550 MG TAB PO ×2 (09:08→21:31)
[2018-07-31] MEDS: FUROSEMIDE 40 MG TAB PO (10:00)
[2018-07-31] MEDS: METOPROLOL (XL) 100 MG TAB PO (13:25)
[2018-07-31] MEDS: DOCUSATE SODIUM 100 MG CAP PO (21:31)
[2018-07-31] MEDS: TAMSULOSIN (SR) 0.4 MG CAP PO (21:37)
[2018-08-01] MEDS: ALBUTEROL HFA 8 GM INHALER INH ×5 (01:00→21:00)
[2018-08-01] MEDS: DAPTOMYCIN 600 MG in SOD CHLORIDE 0.9% 100 ML IVPB (01:34)
[2018-08-01] MEDS: ERTAPENEM SODIUM 1 GM in SOD CHLORIDE 0.9% 100 ML IVPB (01:54)
[2018-08-01] MEDS: LORAZEPAM 1 MG TAB PO ×2 (03:51→21:24)
[2018-08-01] MEDS: oxyCODONE 15 MG TAB PO ×2 (03:51→21:24)
[2018-08-01] MEDS: LEVOTHYROXINE 100 MCG TAB PO (07:00)
[2018-08-01] MEDS: FUROSEMIDE 40 MG TAB PO (08:48)
[2018-08-01] MEDS: GABAPENTIN 100 MG CAP PO ×3 (08:48→21:24)
[2018-08-01] MEDS: THIAMINE 100 MG TAB PO (08:48)
[2018-08-01] MEDS: RIFAXIMIN 550 MG TAB PO ×2 (08:48→21:24)
[2018-08-01] MEDS: NA BICARBONATE 650 MG TAB PO ×3 (08:49→21:24)
[2018-08-01] MEDS: FERROUS SULFATE (EC) 325 MG TAB PO (08:49)
[2018-08-01] MEDS: ALLOPURINOL 100 MG TAB PO (08:49)
[2018-08-01] MEDS: METOPROLOL (XL) 100 MG TAB PO (08:49)
[2018-08-01] MEDS: FOLIC ACID 1 MG TAB PO (08:49)
[2018-08-01] MEDS: PANTOPRAZOLE (EC) 40 MG TAB PO (08:49)
[2018-08-01] MEDS: SODIUM HYPOCHLORITE (1/40) 1 APPLIC BTL IRR (08:51)
[2018-08-01] MEDS: BUDESONIDE (NEB) 0.5MG/2ML AMP HHN ×2 (09:00→20:00)
[2018-08-01] MEDS: ARFORMOTEROL TARTRATE 15MCG/2 ML AMP HHN ×2 (09:00→20:00)
[2018-08-01 10:23] LABS: ABNORMAL IP MESSAGE 1; HEMATOCRIT 27.9 % (42.0-52.0); HEMOGLOBIN 8.5 g/dl (14.0-18.0); MEAN CORPUSCULAR HEMOGLOBIN 24.2 pg (29.0-33.0); MEAN CORPUSCULAR HGB CONC 30.5 g/dl (32.0-37.0); MEAN CORPUSCULAR VOLUME 79.5 fl (82.0-101.0); PLATELET COUNT 194 10^3/UL (140-415); POSITIVE DIFF @See below; RED BLOOD COUNT 3.51 10^6/ul (4.70-6.10); RED CELL DISTRIBUTION WIDTH 23.1 % (11.5-14.5)
[2018-08-01 10:23] LABS: WHITE BLOOD COUNT 13.1 10^3/ul (4.8-10.8)
[2018-08-01 10:26] LABS: ADD MAN DIFF? YES
[2018-08-01 10:46] LABS: ANION GAP 9 (5-13); BLOOD UREA NITROGEN 43 mg/dl (7-20); CALCIUM 8.3 mg/dl (8.4-10.2); CARBON DIOXIDE 26 mmol/L (21-31); CHLORIDE 102 mmol/L (97-110); CREATININE 1.99 mg/dl (0.61-1.24); Estimated GFR 34 mL/min (>60); GLUCOSE 101 mg/dl (70-220); POTASSIUM 4.6 mmol/L (3.5-5.1); SODIUM 137 mmol/L (135-144)
[2018-08-01] MEDS: EPOETIN 10000 UNITS/1 ML INJ (ESRD) SC (18:42)
[2018-08-01] MEDS: DOCUSATE SODIUM 100 MG CAP PO (21:24)
[2018-08-01] MEDS: TAMSULOSIN (SR) 0.4 MG CAP PO (21:28)
[2018-08-02] MEDS: ALBUTEROL HFA 8 GM INHALER INH ×4 (01:00→09:32)
[2018-08-02] MEDS: ERTAPENEM SODIUM 1 GM in SOD CHLORIDE 0.9% 100 ML IVPB (01:51)
[2018-08-02] MEDS: DAPTOMYCIN 600 MG in SOD CHLORIDE 0.9% 100 ML IVPB (02:41)
[2018-08-02] MEDS: oxyCODONE 15 MG TAB PO ×2 (03:34→09:32)
[2018-08-02] MEDS: LORAZEPAM 1 MG TAB PO ×2 (03:34→09:32)
[2018-08-02] MEDS: PANTOPRAZOLE (EC) 40 MG TAB PO (06:05)
[2018-08-02] MEDS: LEVOTHYROXINE 100 MCG TAB PO (06:05)
[2018-08-02] MEDS: SODIUM HYPOCHLORITE (1/40) 1 APPLIC BTL IRR (07:38)
[2018-08-02] MEDS: FUROSEMIDE 40 MG TAB PO (09:00)
[2018-08-02] MEDS: BUDESONIDE (NEB) 0.5MG/2ML AMP HHN (09:00)
[2018-08-02] MEDS: ALLOPURINOL 100 MG TAB PO (09:00)
[2018-08-02] MEDS: ARFORMOTEROL TARTRATE 15MCG/2 ML AMP HHN (09:00)
[2018-08-02] MEDS: METOPROLOL (XL) 100 MG TAB PO (09:00)
[2018-08-02] MEDS: FERROUS SULFATE (EC) 325 MG TAB PO (09:32)
[2018-08-02] MEDS: GABAPENTIN 100 MG CAP PO ×2 (09:32→14:35)
[2018-08-02] MEDS: FOLIC ACID 1 MG TAB PO (09:32)
[2018-08-02] MEDS: NA BICARBONATE 650 MG TAB PO (09:32)
[2018-08-02] MEDS: RIFAXIMIN 550 MG TAB PO (09:33)
[2018-08-02] MEDS: THIAMINE 100 MG TAB PO (09:33)
== END 2018-08-02 15:15 | DRG 629 ==
LOC: 5EC 07-31 02:05 → E/R 15:11 → 6WM 17:06
PROC: 0QBP0ZZ Excision of Left Metatarsal, Open Approach (ICD-10-PCS; principal; 2018-07-30 15:30)
DX: E11.69 Type 2 diabetes mellitus with other specified complication (principal); M86.172 Other acute osteomyelitis, left ankle and foot; L03.116 Cellulitis of left lower limb; I50.30 Unspecified diastolic (congestive) heart failure; R65.10 Systemic inflammatory response syndrome (SIRS) of non-infectious origin without acute organ dysfunction; L03.115 Cellulitis of right lower limb; L02.612 Cutaneous abscess of left foot; I13.2 Hypertensive heart and chronic kidney disease with heart failure and with stage 5 chronic kidney disease, or end stage renal disease; N18.6 End stage renal disease; N17.9 Acute kidney failure, unspecified; E11.42 Type 2 diabetes mellitus with diabetic polyneuropathy; E11.22 Type 2 diabetes mellitus with diabetic chronic kidney disease; E11.621 Type 2 diabetes mellitus with foot ulcer; K70.31 Alcoholic cirrhosis of liver with ascites; D63.8 Anemia in other chronic diseases classified elsewhere; M06.9 Rheumatoid arthritis, unspecified; L97.529 Non-pressure chronic ulcer of other part of left foot with unspecified severity; N40.0 Benign prostatic hyperplasia without lower urinary tract symptoms; F10.10 Alcohol abuse, uncomplicated; E78.5 Hyperlipidemia, unspecified; K72.90 Hepatic failure, unspecified without coma; J44.9 Chronic obstructive pulmonary disease, unspecified; E87.5 Hyperkalemia; Z91.19 Patient's noncompliance with other medical treatment and regimen; M10.9 Gout, unspecified; Z87.891 Personal history of nicotine dependence; Z88.0 Allergy status to penicillin
CPT/HCPCS: 36415; 71045; 73630-LT; 76775; 80048; 81000; 81003; 82550; 82570; 83605; 84300; 84484; 84560; 85025; 85610; 85730; 87040; 87070; 87075; 87086; 88304; 88311; 89190; 93005; 93971; 94640; 96374; 99291-25

== ENCOUNTER 2018-11-11 14:17 | Inpatient (IN) | payer BC ==
[2018-11-11] MEDS: LEVALBUTEROL (NEB) 1.25 MG/0.5 ML AMP INH (14:59)
[2018-11-11] MEDS: IPRATROPIUM (NEB) 0.5 MG/2.5 ML AMP INH (14:59)
[2018-11-11] MEDS: METHYLPREDNISOLONE 125 MG INJ IV (15:13)
[2018-11-11 15:15] LABS: ABNORMAL IP MESSAGE 1; HEMATOCRIT 23.3 % (42.0-52.0); MEAN CORPUSCULAR HEMOGLOBIN 20.3 pg (29.0-33.0); MEAN CORPUSCULAR HGB CONC 27.9 g/dl (32.0-37.0); MEAN CORPUSCULAR VOLUME 72.8 fl (82.0-101.0); NUCLEATED RED BLOOD CELLS% 0.4 /100WBC (0.0-0.0); PLATELET COUNT 173 10^3/UL (140-415); POSITIVE DIFF @See below; RED CELL DISTRIBUTION WIDTH 22.9 % (11.5-14.5)
[2018-11-11 15:17] LABS: HEMOGLOBIN 6.5 g/dl (14.0-18.0)
[2018-11-11 15:18] LABS: ADD MAN DIFF? YES; PATH REVIEW? YES
[2018-11-11 15:26] LABS: INR 1.09; PROTIME 14.2 Sec (11.9-14.9); PT RATIO 1.1
[2018-11-11 15:27] LABS: LIPASE 202 U/L (23-300)
[2018-11-11 15:40] LABS: B-TYPE NATRIURETIC PEPTIDE 9920 PG/ML (0-125); TROPONIN-I 0.015 ng/ml (0.000-0.120)
[2018-11-11 17:03] LABS: IMMEDIATE SPIN CROSSMATCH 1 2
[2018-11-11 17:18] LABS: ALANINE AMINOTRANSFERASE 15 IU/L (13-69); ALBUMIN 3.9 g/dl (3.3-4.9); ALKALINE PHOSPHATASE 110 IU/L (42-121); ANION GAP 16 (5-13); ASPARTATE AMINO TRANSFERASE 29 IU/L (15-46); BILIRUBIN,INDIRECT 0.3 mg/dl (0-1.1); BILIRUBIN,TOTAL 0.3 mg/dl (0.2-1.3); BLOOD UREA NITROGEN 54 mg/dl (7-20); CALCIUM 8.5 mg/dl (8.4-10.2); CARBON DIOXIDE 14 mmol/L (21-31); CHLORIDE 95 mmol/L (97-110); Estimated GFR 22 mL/min (>60); GLUCOSE 96 mg/dl (70-220); POTASSIUM 4.7 mmol/L (3.5-5.1); SODIUM 125 mmol/L (135-144); TOTAL PROTEIN 7.8 g/dl (6.1-8.1)
[2018-11-11 17:39] LABS: ANISOCYTOSIS 2+ (0-0); BAND NEUTROPHILS #M 0.6 10^3/ul (0.0-0.6); BAND NEUTROPHILS % (M) 4 % (0-4); BASOPHIL #M 0.3 10^3/ul (0.0-0.0); BASOPHILS % (M) 2 % (0-2); BURR CELLS 2+ (0-0); EOSINOPHILS % (M) 1 % (0-7); HYPOCHROMASIA 2+ (0-0); LYMPHOCYTES #M 1.1 10^3/ul (0.8-2.9); LYMPHOCYTES % (M) 7 % (15-51); MICROCYTOSIS 1+ (0-0); MONOCYTE #M 1.5 10^3/ul (0.3-0.9); MONOCYTES % (M) 9 % (0-11); OVALOCYTES 1+ (0-0); PLATELET ESTIMATE NORMAL; POIKILOCYTOSIS 2+ (0-0); POLYCHROMASIA 2+ (0-0); SEG NEUT #M 13.2 10^3/ul (1.6-7.5); SEGMENTED NEUTROPHILS (M) % 77 % (39-77); SMUDGE%M 29 % (0-0); TEAR DROP CELLS 1+ (0-0)
[2018-11-11] MEDS: AZITHROMYCIN 500MG/NS (PMX) 250 ML IVPB (18:00)
[2018-11-11] MEDS: LORAZEPAM 2 MG INJ IV (22:29)
[2018-11-11] MEDS: FUROSEMIDE 40 MG INJ IV (22:32)
[2018-11-11] MEDS: AZTREONAM 1 GM/NS (PMX) 50 ML IVPB (22:36)
[2018-11-12] MEDS ORDERED: ONDANSETRON 4 MG INJ IV (00:30)
[2018-11-12] MEDS: FUROSEMIDE 20 MG INJ IV ×2 (06:24→18:15)
[2018-11-12] MEDS: PANTOPRAZOLE 40 MG INJ IV ×2 (06:24→18:15)
[2018-11-12 06:52] LABS: ADD MAN DIFF? NO
[2018-11-12 06:58] LABS: ABNORMAL IP MESSAGE 1; BASOPHILS % 0.4 % (0.0-2.0); EOSINOPHILS % 0.1 % (0.0-7.0); HEMATOCRIT 27.1 % (42.0-52.0); HEMOGLOBIN 7.7 g/dl (14.0-18.0); LYMPHOCYTES # 0.4 10^3/ul (0.8-2.9); LYMPHOCYTES % 3.8 % (15.0-51.0); MEAN CORPUSCULAR HGB CONC 28.4 g/dl (32.0-37.0); MEAN CORPUSCULAR VOLUME 73.8 fl (82.0-101.0); MONOCYTE # 0.5 10^3/ul (0.3-0.9); MONOCYTES % 4.6 % (0.0-11.0); NEUTROPHIL # 9.8 10^3/ul (1.6-7.5); NEUTROPHILS % 88.7 % (39.0-77.0); NUCLEATED RED BLOOD CELLS # 0.1 10^3/ul (0.0-0.0); NUCLEATED RED BLOOD CELLS% 0.5 /100WBC (0.0-0.0); PLATELET COUNT 128 10^3/UL (140-415); POSITIVE DIFF @See below; RED BLOOD COUNT 3.67 10^6/ul (4.70-6.10); RED CELL DISTRIBUTION WIDTH 22.5 % (11.5-14.5)
[2018-11-12 07:30] LABS: ALANINE AMINOTRANSFERASE 14 IU/L (13-69); ALBUMIN 3.8 g/dl (3.3-4.9); ALBUMIN/GLOBULIN RATIO 1.05; ALKALINE PHOSPHATASE 106 IU/L (42-121); ANION GAP 13 (5-13); ASPARTATE AMINO TRANSFERASE 23 IU/L (15-46); BILIRUBIN,INDIRECT 0.5 mg/dl (0-1.1); BILIRUBIN,TOTAL 0.5 mg/dl (0.2-1.3); BLOOD UREA NITROGEN 58 mg/dl (7-20); CALCIUM 8.5 mg/dl (8.4-10.2); CARBON DIOXIDE 21 mmol/L (21-31); CHLORIDE 95 mmol/L (97-110); CREATININE 2.46 mg/dl (0.61-1.24); Estimated GFR 27 mL/min (>60); GLUCOSE 128 mg/dl (70-220); SODIUM 129 mmol/L (135-144); TOTAL PROTEIN 7.4 g/dl (6.1-8.1)
[2018-11-12] MEDS ORDERED: ALBUTEROL/IPRATROPIUM (NEB) 3 ML AMP HHN (16:30)
[2018-11-12 19:22] LABS: FOLATE > 20.0 ng/ml (2.8-20.0)
[2018-11-12] MEDS: ALBUTEROL/IPRATROPIUM (NEB) 3 ML AMP HHN (20:20)
[2018-11-12] MEDS ORDERED: NON-FORMULARY/PATIENT OWN MED (Salmeterol Xinaf/Fluticasone* (Advair*) 1 INH) INHALATION (21:00)
[2018-11-12] MEDS: LORAZEPAM 0.5 MG TAB PO (21:23)
[2018-11-12] MEDS: GABAPENTIN 100 MG CAP PO (21:23)
[2018-11-12] MEDS: DOCUSATE SODIUM 100 MG CAP PO (21:23)
[2018-11-12] MEDS: morphine 2 MG INJ IV (21:52)
[2018-11-12] MEDS: ALBUMIN HUMAN 25% 100 ML IV (23:49)
[2018-11-13] MEDS: ALBUTEROL/IPRATROPIUM (NEB) 3 ML AMP HHN ×4 (01:52→20:29)
[2018-11-13] MEDS: morphine 2 MG INJ IV ×4 (02:35→22:23)
[2018-11-13] MEDS: LORAZEPAM 0.5 MG TAB PO ×2 (04:40→17:34)
[2018-11-13] MEDS: FUROSEMIDE 20 MG INJ IV ×2 (06:43→17:34)
[2018-11-13] MEDS: PANTOPRAZOLE 40 MG INJ IV ×2 (06:43→17:34)
[2018-11-13] MEDS: ALBUMIN HUMAN 25% 100 ML IV ×2 (06:44→15:21)
[2018-11-13] MEDS: LEVOTHYROXINE 100 MCG TAB PO (06:48)
[2018-11-13] MEDS: GABAPENTIN 100 MG CAP PO ×4 (09:00→22:21)
[2018-11-13] MEDS: ALLOPURINOL 100 MG TAB PO ×2 (09:00→09:35)
[2018-11-13] MEDS: FOLIC ACID 1 MG TAB PO ×2 (09:00→09:35)
[2018-11-13] MEDS: FERROUS SULFATE (EC) 325 MG TAB PO ×2 (09:00→09:35)
[2018-11-13] MEDS: SPIRONOLACTONE 50 MG TAB PO ×2 (09:00→09:35)
[2018-11-13] MEDS: METOPROLOL (XL) 100 MG TAB PO ×2 (09:00→09:34)
[2018-11-13] MEDS: TAMSULOSIN (SR) 0.4 MG CAP PO ×2 (09:00→09:34)
[2018-11-13] MEDS: AZITHROMYCIN 250 MG TAB PO (12:21)
[2018-11-13 15:56] LABS: RETICULOCYTE RBC 3.46
[2018-11-13 15:56] LABS: RETICULOCYTE COUNT # 0.167 X10^6 (0.020-0.110); RETICULOCYTE COUNT % 4.8 % (0.5-1.5)
[2018-11-13 15:57] LABS: ABNORMAL IP MESSAGE 1; HEMATOCRIT 26.2 % (42.0-52.0); HEMOGLOBIN 7.3 g/dl (14.0-18.0); MEAN CORPUSCULAR HGB CONC 27.9 g/dl (32.0-37.0); MEAN CORPUSCULAR VOLUME 75.5 fl (82.0-101.0); NUCLEATED RED BLOOD CELLS% 0.3 /100WBC (0.0-0.0); PLATELET COUNT 115 10^3/UL (140-415); POSITIVE DIFF @See below; RED BLOOD COUNT 3.47 10^6/ul (4.70-6.10); RED CELL DISTRIBUTION WIDTH 22.9 % (11.5-14.5)
[2018-11-13 15:57] LABS: WHITE BLOOD COUNT 10.5 10^3/ul (4.8-10.8)
[2018-11-13 16:00] LABS: ADD MAN DIFF? YES
[2018-11-13 16:16] LABS: ALANINE AMINOTRANSFERASE 21 IU/L (13-69); ALBUMIN 3.9 g/dl (3.3-4.9); ALBUMIN/GLOBULIN RATIO 1.25; ALKALINE PHOSPHATASE 95 IU/L (42-121); ANION GAP 11 (5-13); ASPARTATE AMINO TRANSFERASE 22 IU/L (15-46); BILIRUBIN,INDIRECT 0.4 mg/dl (0-1.1); BILIRUBIN,TOTAL 0.4 mg/dl (0.2-1.3); BLOOD UREA NITROGEN 72 mg/dl (7-20); CALCIUM 8.4 mg/dl (8.4-10.2); CARBON DIOXIDE 26 mmol/L (21-31); CHLORIDE 99 mmol/L (97-110); CREATININE 2.21 mg/dl (0.61-1.24); Estimated GFR 30 mL/min (>60); GLUCOSE 103 mg/dl (70-220); POTASSIUM 4.2 mmol/L (3.5-5.1); SODIUM 136 mmol/L (135-144)
[2018-11-13] MEDS ORDERED: hydrALAzine 20 MG INJ IV (16:30)
[2018-11-13 16:33] LABS: FREE T4 (FREE THYROXINE) 1.32 ng/dl (0.78-2.44)
[2018-11-13 16:41] LABS: ANISOCYTOSIS 2+ (0-0); BURR CELLS 1+ (0-0); ERYTHROBLAST% (NRBC) (M) 1 % (0-0); GIANT THROMBO% (M) 1 % (0-0); HYPOCHROMASIA 2+ (0-0); LYMPHOCYTES #M 0.5 10^3/ul (0.8-2.9); LYMPHOCYTES % (M) 5 % (15-51); MICROCYTOSIS 1+ (0-0); MONOCYTE #M 1.4 10^3/ul (0.3-0.9); MONOCYTES % (M) 14 % (0-11); POIKILOCYTOSIS 2+ (0-0); POLYCHROMASIA 3+ (0-0); SEGMENTED NEUTROPHILS (M) % 81 % (39-77); SMUDGE%M 13 % (0-0)
[2018-11-13 19:28] LABS: CREATINE KINASE 40 IU/L (23-200)
[2018-11-13 19:40] LABS: CK INDEX 4.6; CK-MB 1.85 ng/ml (0.0-2.4); TROPONIN-I 0.025 ng/ml (0.000-0.120)
[2018-11-13] MEDS: ARFORMOTEROL TARTRATE 15MCG/2 ML AMP INH (20:30)
[2018-11-13] MEDS: BUDESONIDE (NEB) 0.5MG/2ML AMP INH (20:40)
[2018-11-13] MEDS: DOCUSATE SODIUM 100 MG CAP PO (22:21)
[2018-11-14 00:15] LABS: OCCULT BLOOD STOOL NEGATIVE (NEGATIVE)
[2018-11-14 00:58] LABS: CREATINE KINASE 33 IU/L (23-200)
[2018-11-14 01:11] LABS: CK-MB 1.98 ng/ml (0.0-2.4); TROPONIN-I 0.044 ng/ml (0.000-0.120)
[2018-11-14] MEDS: ALBUTEROL/IPRATROPIUM (NEB) 3 ML AMP HHN ×4 (02:15→21:37)
[2018-11-14] MEDS: LEVOTHYROXINE 100 MCG TAB PO (05:52)
[2018-11-14] MEDS: FUROSEMIDE 20 MG TAB PO ×2 (05:53→17:45)
[2018-11-14] MEDS: PANTOPRAZOLE 40 MG INJ IV ×2 (05:53→17:44)
[2018-11-14 06:47] LABS: WHITE BLOOD COUNT 6.6 10^3/ul (4.8-10.8)
[2018-11-14 06:47] LABS: ABNORMAL IP MESSAGE 1; HEMATOCRIT 27.6 % (42.0-52.0); HEMOGLOBIN 7.4 g/dl (14.0-18.0); MEAN CORPUSCULAR HEMOGLOBIN 20.7 pg (29.0-33.0); MEAN CORPUSCULAR HGB CONC 26.8 g/dl (32.0-37.0); MEAN CORPUSCULAR VOLUME 77.1 fl (82.0-101.0); NUCLEATED RED BLOOD CELLS% 0.3 /100WBC (0.0-0.0); PLATELET COUNT 99 10^3/UL (140-415); POSITIVE DIFF @See below; RED BLOOD COUNT 3.58 10^6/ul (4.70-6.10); RED CELL DISTRIBUTION WIDTH 22.5 % (11.5-14.5)
[2018-11-14 06:51] LABS: ADD MAN DIFF? YES
[2018-11-14 07:10] LABS: CHOL/HDL RATIO 2.3 RATIO; LDL CHOLESTEROL,CALCULATED 46 mg/dl
[2018-11-14 07:27] LABS: CHOLESTEROL 99 mg/dl (100-200)
[2018-11-14 07:27] LABS: HDL CHOLESTEROL 43 mg/dl (30-78); TRIGLYCERIDES 50 mg/dl (0-149)
[2018-11-14 07:31] LABS: ANION GAP 11 (5-13); BLOOD UREA NITROGEN 71 mg/dl (7-20); CALCIUM 8.5 mg/dl (8.4-10.2); CARBON DIOXIDE 25 mmol/L (21-31); CHLORIDE 104 mmol/L (97-110); CREATININE 1.84 mg/dl (0.61-1.24); Estimated GFR 38 mL/min (>60); GLUCOSE 98 mg/dl (70-220); MAGNESIUM 2.3 mg/dl (1.7-2.5); POTASSIUM 4.7 mmol/L (3.5-5.1); SODIUM 140 mmol/L (135-144)
[2018-11-14 08:19] LABS: CREATINE KINASE 30 IU/L (23-200)
[2018-11-14 08:33] LABS: CK INDEX 5.6; CK-MB 1.68 ng/ml (0.0-2.4); TROPONIN-I 0.028 ng/ml (0.000-0.120)
[2018-11-14] MEDS: MULTIVITAMINS 10 ML, THIAMINE 100 MG, FOLIC ACID 1 MG in SOD CHLORIDE 0.9% 1,000 ML IVPB (08:53)
[2018-11-14] MEDS: morphine 2 MG INJ IV ×2 (08:54→19:47)
[2018-11-14] MEDS: TAMSULOSIN (SR) 0.4 MG CAP PO (08:54)
[2018-11-14] MEDS: METOPROLOL (XL) 100 MG TAB PO (08:54)
[2018-11-14] MEDS: ALLOPURINOL 100 MG TAB PO (08:54)
[2018-11-14] MEDS: GABAPENTIN 100 MG CAP PO ×3 (08:54→19:58)
[2018-11-14] MEDS: FOLIC ACID 1 MG TAB PO (08:54)
[2018-11-14] MEDS: SPIRONOLACTONE 50 MG TAB PO (08:54)
[2018-11-14] MEDS: AZITHROMYCIN 250 MG TAB PO (08:54)
[2018-11-14] MEDS: FERROUS SULFATE (EC) 325 MG TAB PO (08:55)
[2018-11-14] MEDS: BUDESONIDE (NEB) 0.5MG/2ML AMP INH ×2 (09:11→21:37)
[2018-11-14] MEDS: ARFORMOTEROL TARTRATE 15MCG/2 ML AMP INH ×2 (09:20→21:37)
[2018-11-14 09:49] LABS: ANISOCYTOSIS 2+ (0-0); BAND NEUTROPHILS #M 0.1 10^3/ul (0.0-0.6); BAND NEUTROPHILS % (M) 2 % (0-4); EOSINOPHILS % (M) 1 % (0-7); ERYTHROBLAST% (NRBC) (M) 1 % (0-0); HYPOCHROMASIA 3+ (0-0); LYMPHOCYTES #M 1.2 10^3/ul (0.8-2.9); LYMPHOCYTES % (M) 19 % (15-51); MICROCYTOSIS 2+ (0-0); MONOCYTE #M 0.8 10^3/ul (0.3-0.9); MONOCYTES % (M) 13 % (0-11); PLATELET ESTIMATE DECREASED; POIKILOCYTOSIS 1+ (0-0); REACTIVE LYMPHOCYTES% (M) 1 % (0-0); SEG NEUT #M 4.2 10^3/ul (1.6-7.5); SEGMENTED NEUTROPHILS (M) % 64 % (39-77); SMUDGE%M 6 % (0-0)
[2018-11-14] MEDS: LORAZEPAM 0.5 MG TAB PO (20:05)
[2018-11-14] MEDS: DOCUSATE SODIUM 100 MG CAP PO (20:32)
[2018-11-15] MEDS: ALBUTEROL/IPRATROPIUM (NEB) 3 ML AMP HHN ×4 (02:19→20:48)
[2018-11-15] MEDS: LORAZEPAM 0.5 MG TAB PO ×3 (02:33→18:53)
[2018-11-15] MEDS: LEVOTHYROXINE 100 MCG TAB PO (06:02)
[2018-11-15] MEDS: FUROSEMIDE 20 MG TAB PO ×2 (06:02→17:15)
[2018-11-15] MEDS: PANTOPRAZOLE 40 MG INJ IV ×2 (06:02→17:14)
[2018-11-15] MEDS: morphine 2 MG INJ IV ×3 (06:06→18:55)
[2018-11-15] MEDS: MULTIVITAMINS 10 ML, THIAMINE 100 MG, FOLIC ACID 1 MG in SOD CHLORIDE 0.9% 1,000 ML IVPB (08:26)
[2018-11-15] MEDS: ALLOPURINOL 100 MG TAB PO (08:26)
[2018-11-15] MEDS: TAMSULOSIN (SR) 0.4 MG CAP PO (08:26)
[2018-11-15] MEDS: FERROUS SULFATE (EC) 325 MG TAB PO (08:26)
[2018-11-15] MEDS: GABAPENTIN 100 MG CAP PO ×3 (08:26→20:38)
[2018-11-15] MEDS: METOPROLOL (XL) 100 MG TAB PO (08:27)
[2018-11-15] MEDS: SPIRONOLACTONE 50 MG TAB PO (08:27)
[2018-11-15] MEDS: FOLIC ACID 1 MG TAB PO (08:27)
[2018-11-15] MEDS: AZITHROMYCIN 250 MG TAB PO (08:27)
[2018-11-15] MEDS: ARFORMOTEROL TARTRATE 15MCG/2 ML AMP INH ×2 (09:00→20:48)
[2018-11-15] MEDS: BUDESONIDE (NEB) 0.5MG/2ML AMP INH ×2 (09:14→20:48)
[2018-11-15] MEDS: ALBUMIN HUMAN 25% 100 ML IV ×2 (11:13→17:17)
[2018-11-15] MEDS: DOCUSATE SODIUM 100 MG CAP PO (20:38)
[2018-11-15] MEDS: HYDROmorphONE 0.5 MG/0.5 ML SYG IV (21:18)
[2018-11-16 01:46] LABS: AMPHETAMINE/METHAMPHETAMINE Negative (NEGATIVE); BARBITURATES Negative (NEGATIVE); BENZODIAZEPINES Negative (NEGATIVE); CANNABINOIDS Negative (NEGATIVE); COCAINE Negative (NEGATIVE); OPIATES Positive (NEGATIVE)
[2018-11-16] MEDS: ALBUMIN HUMAN 25% 100 ML IV (02:18)
[2018-11-16] MEDS: ALBUTEROL/IPRATROPIUM (NEB) 3 ML AMP HHN ×4 (03:09→20:01)
[2018-11-16] MEDS: HYDROmorphONE 0.5 MG/0.5 ML SYG IV ×3 (03:14→12:36)
[2018-11-16] MEDS: PANTOPRAZOLE 40 MG INJ IV ×2 (06:14→17:40)
[2018-11-16] MEDS: LEVOTHYROXINE 100 MCG TAB PO (06:15)
[2018-11-16] MEDS: FUROSEMIDE 20 MG TAB PO ×2 (06:17→17:40)
[2018-11-16 06:45] LABS: ABNORMAL IP MESSAGE 1; HEMATOCRIT 24.8 % (42.0-52.0); MEAN CORPUSCULAR HEMOGLOBIN 20.8 pg (29.0-33.0); PLATELET COUNT 84 10^3/UL (140-415); POSITIVE DIFF @See below; RED BLOOD COUNT 3.22 10^6/ul (4.70-6.10); RED CELL DISTRIBUTION WIDTH 21.9 % (11.5-14.5)
[2018-11-16 06:45] LABS: WHITE BLOOD COUNT 6.9 10^3/ul (4.8-10.8)
[2018-11-16 06:56] LABS: HEMOGLOBIN 6.7 g/dl (14.0-18.0)
[2018-11-16 06:57] LABS: ADD MAN DIFF? YES
[2018-11-16 07:17] LABS: ANION GAP 9 (5-13); BLOOD UREA NITROGEN 60 mg/dl (7-20); CALCIUM 8.6 mg/dl (8.4-10.2); CARBON DIOXIDE 25 mmol/L (21-31); CHLORIDE 107 mmol/L (97-110); CREATININE 1.86 mg/dl (0.61-1.24); Estimated GFR 37 mL/min (>60); GLUCOSE 111 mg/dl (70-220); POTASSIUM 4.5 mmol/L (3.5-5.1); SODIUM 141 mmol/L (135-144)
[2018-11-16] MEDS: BUDESONIDE (NEB) 0.5MG/2ML AMP INH ×2 (08:50→20:01)
[2018-11-16] MEDS: FOLIC ACID 1 MG TAB PO (09:04)
[2018-11-16] MEDS: GABAPENTIN 100 MG CAP PO ×3 (09:04→19:59)
[2018-11-16] MEDS: MULTIVITAMINS 10 ML, THIAMINE 100 MG, FOLIC ACID 1 MG in SOD CHLORIDE 0.9% 1,000 ML IVPB (09:04)
[2018-11-16] MEDS: FERROUS SULFATE (EC) 325 MG TAB PO (09:04)
[2018-11-16] MEDS: SPIRONOLACTONE 50 MG TAB PO (09:05)
[2018-11-16] MEDS: TAMSULOSIN (SR) 0.4 MG CAP PO (09:05)
[2018-11-16] MEDS: ALLOPURINOL 100 MG TAB PO (09:05)
[2018-11-16] MEDS: METOPROLOL (XL) 100 MG TAB PO (09:11)
[2018-11-16 09:30] LABS: ANISOCYTOSIS 2+ (0-0); BASOPHILS % (M) 1 % (0-2); EOSINOPHILS % (M) 8 % (0-7); GIANT THROMBO% (M) 1 % (0-0); HYPOCHROMASIA 3+ (0-0); LYMPHOCYTES #M 0.6 10^3/ul (0.8-2.9); LYMPHOCYTES % (M) 9 % (15-51); MICROCYTOSIS 1+ (0-0); MONOCYTE #M 0.8 10^3/ul (0.3-0.9); MONOCYTES % (M) 13 % (0-11); MYELOCYTES % (M) 1 % (0-0); OVALOCYTES 1+ (0-0); PLASMAC%(M) 1 % (0); PLATELET ESTIMATE DECREASED; POIKILOCYTOSIS 2+ (0-0); POLYCHROMASIA 2+ (0-0); SCHISTOCYTES 1+ (0-0); SEGMENTED NEUTROPHILS (M) % 67 % (39-77); SMUDGE%M 6 % (0-0); TARGET CELLS 1+ (0-0)
[2018-11-16] MEDS: ARFORMOTEROL TARTRATE 15MCG/2 ML AMP INH ×2 (09:49→20:01)
[2018-11-16 15:31] LABS: IMMEDIATE SPIN CROSSMATCH 1 2
[2018-11-16] MEDS: HYDROmorphONE 2 MG/ML SYG IV ×3 (15:37→23:56)
[2018-11-16] MEDS: DOCUSATE SODIUM 100 MG CAP PO (19:58)
[2018-11-17] MEDS: ALBUTEROL/IPRATROPIUM (NEB) 3 ML AMP HHN (02:00)
== END 2018-11-17 01:15 | disposition left against medical advice (07) | DRG 871 ==
LOC: E/R 14:17 → TEL 17:47
PROVIDERS: Internal Medicine
PROC: 30233N1 Transfusion of Nonautologous Red Blood Cells into Peripheral Vein, Percutaneous Approach (ICD-10-PCS; 2018-11-11)
PROC: 30233N1 Transfusion of Nonautologous Red Blood Cells into Peripheral Vein, Percutaneous Approach (ICD-10-PCS; principal; 2018-11-16)
DX: A41.9 Sepsis, unspecified organism (principal); I50.33 Acute on chronic diastolic (congestive) heart failure; J18.9 Pneumonia, unspecified organism; N18.6 End stage renal disease; K76.7 Hepatorenal syndrome; I13.2 Hypertensive heart and chronic kidney disease with heart failure and with stage 5 chronic kidney disease, or end stage renal disease; N17.9 Acute kidney failure, unspecified; J44.1 Chronic obstructive pulmonary disease with (acute) exacerbation; E87.1 Hypo-osmolality and hyponatremia; K92.2 Gastrointestinal hemorrhage, unspecified; E87.2 Acidosis; D62 Acute posthemorrhagic anemia; K70.31 Alcoholic cirrhosis of liver with ascites; K72.90 Hepatic failure, unspecified without coma; K80.20 Calculus of gallbladder without cholecystitis without obstruction; F41.9 Anxiety disorder, unspecified; N40.0 Benign prostatic hyperplasia without lower urinary tract symptoms; E03.9 Hypothyroidism, unspecified; I25.10 Atherosclerotic heart disease of native coronary artery without angina pectoris; M10.9 Gout, unspecified; D63.1 Anemia in chronic kidney disease; F17.200 Nicotine dependence, unspecified, uncomplicated; I87.8 Other specified disorders of veins; Z91.19 Patient's noncompliance with other medical treatment and regimen
CPT/HCPCS: 36415; 36430; 71045; 76705; 80048; 80053; 80061; 80307; 82270; 82550; 82553; 82607; 82728; 82746; 83690; 83735; 83880; 84439; 84443; 84484; 85025; 85045; 85610; 85730; 86850; 86900; 86901; 86920; 93005; 93306; 93970; 94640; 94644; 94664; 96374; 99285-25

== ENCOUNTER 2018-11-17 08:26 | Inpatient (IN) | payer BC ==
[2018-11-17] MEDS: HYDROCODONE/APAP (10/325) TAB PO (09:04)
[2018-11-17 09:06] LABS: ABNORMAL IP MESSAGE 1; HEMOGLOBIN 8.1 g/dl (14.0-18.0); MEAN CORPUSCULAR HEMOGLOBIN 21.6 pg (29.0-33.0); MEAN CORPUSCULAR HGB CONC 27.9 g/dl (32.0-37.0); MEAN CORPUSCULAR VOLUME 77.3 fl (82.0-101.0); PLATELET COUNT 97 10^3/UL (140-415); POSITIVE DIFF @See below; RED BLOOD COUNT 3.75 10^6/ul (4.70-6.10)
[2018-11-17 09:10] LABS: ADD MAN DIFF? YES
[2018-11-17 09:29] LABS: ALANINE AMINOTRANSFERASE 23 IU/L (13-69); ALBUMIN 4.1 g/dl (3.3-4.9); ALBUMIN/GLOBULIN RATIO 1.41; ALKALINE PHOSPHATASE 92 IU/L (42-121); ANION GAP 12 (5-13); ASPARTATE AMINO TRANSFERASE 33 IU/L (15-46); BILIRUBIN,INDIRECT 0.2 mg/dl (0-1.1); BILIRUBIN,TOTAL 0.2 mg/dl (0.2-1.3); BLOOD UREA NITROGEN 53 mg/dl (7-20); CARBON DIOXIDE 24 mmol/L (21-31); CHLORIDE 103 mmol/L (97-110); CREATININE 1.62 mg/dl (0.61-1.24); Estimated GFR 44 mL/min (>60); GLUCOSE 101 mg/dl (70-220); POTASSIUM 4.5 mmol/L (3.5-5.1); SODIUM 139 mmol/L (135-144)
[2018-11-17 09:40] LABS: B-TYPE NATRIURETIC PEPTIDE 3100 PG/ML (0-125); TROPONIN-I < 0.012 ng/ml (0.000-0.120)
[2018-11-17] MEDS ORDERED: ACETAMINOPHEN 325 MG TAB PO ×2 (10:00→13:00)
[2018-11-17] MEDS ORDERED: ONDANSETRON 4 MG INJ IV (10:00)
[2018-11-17 11:09] LABS: ANISOCYTOSIS 2+ (0-0); BASOPHIL #M 0.1 10^3/ul (0.0-0.0); BASOPHILS % (M) 1 % (0-2); BURR CELLS 1+ (0-0); EOSINOPHILS % (M) 8 % (0-7); HYPOCHROMASIA 3+ (0-0); LYMPHOCYTES #M 0.6 10^3/ul (0.8-2.9); LYMPHOCYTES % (M) 6 % (15-51); MICROCYTOSIS 2+ (0-0); MONOCYTE #M 1.5 10^3/ul (0.3-0.9); MONOCYTES % (M) 15 % (0-11); OVALOCYTES 1+ (0-0); PLATELET ESTIMATE DECREASED; POIKILOCYTOSIS 1+ (0-0); SEGMENTED NEUTROPHILS (M) % 71 % (39-77); SMUDGE%M 3 % (0-0)
[2018-11-17] MEDS ORDERED: ALBUTEROL 0.083% (NEB) 2.5 MG/3 ML AMP HHN (13:00)
[2018-11-17] MEDS ORDERED: NACL 0.9% 3 ML SYG IV (13:00)
[2018-11-17] MEDS: HYDROmorphONE 0.5 MG/0.5 ML SYG IV ×3 (13:16→22:13)
[2018-11-17 15:33] LABS: CREATINE KINASE 35 IU/L (23-200)
[2018-11-17 15:41] LABS: CK INDEX 2.5; CK-MB 0.88 ng/ml (0.0-2.4)
[2018-11-17 15:46] LABS: TROPONIN-I < 0.012 ng/ml (0.000-0.120)
[2018-11-17] MEDS: FAMOTIDINE 20 MG INJ IV (21:24)
[2018-11-17 21:28] LABS: CREATINE KINASE 105 IU/L (23-200)
[2018-11-17 21:41] LABS: CK-MB 1.01 ng/ml (0.0-2.4); TROPONIN-I < 0.012 ng/ml (0.000-0.120)
[2018-11-17] MEDS: LORAZEPAM 2 MG INJ IV (23:55)
[2018-11-18] MEDS: FAMOTIDINE 20 MG INJ IV ×2 (08:45→20:29)
[2018-11-18] MEDS: SPIRONOLACTONE 50 MG TAB PO (08:45)
[2018-11-18] MEDS: METOPROLOL (XL) 50 MG TAB PO (08:46)
[2018-11-18] MEDS: FUROSEMIDE 20 MG INJ IV (08:46)
[2018-11-18] MEDS: HYDROmorphONE 0.5 MG/0.5 ML SYG IV ×3 (08:58→18:56)
[2018-11-18] MEDS: ENOXAPARIN 30 MG/0.3 ML SYG SC (09:18)
[2018-11-18] MEDS: LORAZEPAM 2 MG INJ IV ×2 (14:33→21:31)
[2018-11-18 14:40] LABS: WHITE BLOOD COUNT 10.9 10^3/ul (4.8-10.8)
[2018-11-18 14:40] LABS: ABNORMAL IP MESSAGE 1; HEMATOCRIT 32.6 % (42.0-52.0); HEMOGLOBIN 8.9 g/dl (14.0-18.0); MEAN CORPUSCULAR HEMOGLOBIN 21.5 pg (29.0-33.0); MEAN CORPUSCULAR HGB CONC 27.3 g/dl (32.0-37.0); MEAN CORPUSCULAR VOLUME 78.7 fl (82.0-101.0); PLATELET COUNT 97 10^3/UL (140-415); POSITIVE DIFF @See below; RED BLOOD COUNT 4.14 10^6/ul (4.70-6.10)
[2018-11-18 14:42] LABS: ADD MAN DIFF? YES
[2018-11-18 14:50] LABS: ALANINE AMINOTRANSFERASE 26 IU/L (13-69); ALBUMIN 3.9 g/dl (3.3-4.9); ALBUMIN/GLOBULIN RATIO 1.21; ALKALINE PHOSPHATASE 88 IU/L (42-121); ANION GAP 11 (5-13); ASPARTATE AMINO TRANSFERASE 47 IU/L (15-46); BILIRUBIN,INDIRECT 0.5 mg/dl (0-1.1); BILIRUBIN,TOTAL 0.5 mg/dl (0.2-1.3); BLOOD UREA NITROGEN 42 mg/dl (7-20); CALCIUM 8.9 mg/dl (8.4-10.2); CARBON DIOXIDE 22 mmol/L (21-31); CHLORIDE 106 mmol/L (97-110); CREATININE 1.36 mg/dl (0.61-1.24); Estimated GFR 53 mL/min (>60); GLUCOSE 129 mg/dl (70-220); POTASSIUM 5.1 mmol/L (3.5-5.1); SODIUM 139 mmol/L (135-144); TOTAL PROTEIN 7.1 g/dl (6.1-8.1)
[2018-11-18 15:42] LABS: HEMOGLOBIN A1C 4.9 % (0-5.9)
[2018-11-18 16:07] LABS: ACANTHOCYTES 1+ (0-0); ANISOCYTOSIS 1+ (0-0); BURR CELLS 1+ (0-0); ECHINOCYTOSIS 1+ (0-0); EOSINOPHILS % (M) 6 % (0-7); LYMPHOCYTES #M 0.7 10^3/ul (0.8-2.9); LYMPHOCYTES % (M) 7 % (15-51); MICROCYTOSIS 1+ (0-0); MONOCYTE #M 2.6 10^3/ul (0.3-0.9); MONOCYTES % (M) 24 % (0-11); POIKILOCYTOSIS 2+ (0-0); POLYCHROMASIA 1+ (0-0); REACTIVE LYMPHOCYTES #M 0.2 10^3/ul (0.0-0.0); REACTIVE LYMPHOCYTES% (M) 2 % (0-0); SCHISTOCYTES 1+ (0-0); SEGMENTED NEUTROPHILS (M) % 62 % (39-77); SMUDGE%M 39 % (0-0); SPHEROCYTES 1+ (0-0); TARGET CELLS 1+ (0-0)
[2018-11-18] MEDS: HYDROmorphONE 1 MG/ML SYG IV (22:55)
[2018-11-19] MEDS: HYDROmorphONE 1 MG/ML SYG IV ×4 (04:31→20:10)
[2018-11-19] MEDS: LORAZEPAM 2 MG INJ IV ×3 (04:44→16:53)
[2018-11-19] MEDS ORDERED: LEVOTHYROXINE 25 MCG TAB PO (06:00)
[2018-11-19] MEDS: LEVOTHYROXINE 75 MCG TAB PO (06:58)
[2018-11-19] MEDS: FAMOTIDINE 20 MG INJ IV (08:55)
[2018-11-19] MEDS: NA BICARBONATE 650 MG TAB PO ×3 (08:56→20:11)
[2018-11-19] MEDS: ASCORBIC ACID 500 MG TAB PO (08:56)
[2018-11-19] MEDS: GABAPENTIN 100 MG CAP PO ×3 (08:56→20:11)
[2018-11-19] MEDS: THIAMINE 100 MG TAB PO (08:56)
[2018-11-19] MEDS: SPIRONOLACTONE 50 MG TAB PO (08:57)
[2018-11-19] MEDS: FOLIC ACID 1 MG TAB PO (08:57)
[2018-11-19] MEDS: FERROUS SULFATE (EC) 325 MG TAB PO (08:57)
[2018-11-19] MEDS: ALLOPURINOL 100 MG TAB PO (08:57)
[2018-11-19] MEDS: FUROSEMIDE 20 MG INJ IV (08:59)
[2018-11-19] MEDS: LACTULOSE 30ML CUP PO ×3 (09:00→20:24)
[2018-11-19] MEDS: METOPROLOL (XL) 50 MG TAB PO (09:00)
[2018-11-19] MEDS ORDERED: NON-FORMULARY/PATIENT OWN MED (Salmeterol Xinaf/Fluticasone* (Advair*) 1 INH) INHALATION (09:00)
[2018-11-19] MEDS ORDERED: DORZOLAMIDE/TIMOLOL 10 ML OPH BOTH EYES (09:00)
[2018-11-19] MEDS: ENOXAPARIN 30 MG/0.3 ML SYG SC (09:00)
[2018-11-19] MEDS: RIFAXIMIN 550 MG TAB PO ×2 (09:00→20:11)
[2018-11-19] MEDS: ARFORMOTEROL TARTRATE 15MCG/2 ML AMP INH ×2 (09:41→21:14)
[2018-11-19] MEDS: BUDESONIDE (NEB) 0.5MG/2ML AMP INH ×2 (09:42→21:15)
[2018-11-19] MEDS: DORZOLAMIDE/TIMOLOL/PF 0.2 ML DROPERETTE BOTH EYES ×2 (12:27→20:10)
[2018-11-19 15:13] LABS: ADD MAN DIFF? NO
[2018-11-19 15:17] LABS: WHITE BLOOD COUNT 10.7 10^3/ul (4.8-10.8)
[2018-11-19 15:17] LABS: ABNORMAL IP MESSAGE 1; HEMATOCRIT 31.3 % (42.0-52.0); HEMOGLOBIN 8.7 g/dl (14.0-18.0); MEAN CORPUSCULAR HEMOGLOBIN 21.6 pg (29.0-33.0); MEAN CORPUSCULAR HGB CONC 27.8 g/dl (32.0-37.0); MEAN CORPUSCULAR VOLUME 77.9 fl (82.0-101.0); PLATELET COUNT 113 10^3/UL (140-415); POSITIVE DIFF @See below; RED BLOOD COUNT 4.02 10^6/ul (4.70-6.10); RED CELL DISTRIBUTION WIDTH 22.6 % (11.5-14.5)
[2018-11-19 15:39] LABS: ALANINE AMINOTRANSFERASE 35 IU/L (13-69); ALBUMIN 3.6 g/dl (3.3-4.9); ALBUMIN/GLOBULIN RATIO 1.24; ALKALINE PHOSPHATASE 99 IU/L (42-121); ANION GAP 6 (5-13); ASPARTATE AMINO TRANSFERASE 52 IU/L (15-46); BILIRUBIN,INDIRECT 0.3 mg/dl (0-1.1); BILIRUBIN,TOTAL 0.3 mg/dl (0.2-1.3); BLOOD UREA NITROGEN 43 mg/dl (7-20); CALCIUM 8.8 mg/dl (8.4-10.2); CARBON DIOXIDE 27 mmol/L (21-31); CHLORIDE 107 mmol/L (97-110); CREATININE 1.61 mg/dl (0.61-1.24); Estimated GFR 44 mL/min (>60); GLUCOSE 80 mg/dl (70-220); POTASSIUM 4.8 mmol/L (3.5-5.1); SODIUM 140 mmol/L (135-144); TOTAL PROTEIN 6.5 g/dl (6.1-8.1)
[2018-11-19] MEDS: EPOETIN ALFA-EPBX (NON-ESRD 10,000 UNIT/ML VIAL SC (17:01)
[2018-11-19 18:40] LABS: ANISOCYTOSIS 1+ (0-0); BAND NEUTROPHILS #M 0.2 10^3/ul (0.0-0.6); BAND NEUTROPHILS % (M) 2 % (0-4); BASOPHIL #M 0.1 10^3/ul (0.0-0.0); BASOPHILS % (M) 1 % (0-2); EOSINOPHILS % (M) 4 % (0-7); HYPOCHROMASIA 2+ (0-0); LYMPHOCYTES #M 0.7 10^3/ul (0.8-2.9); LYMPHOCYTES % (M) 7 % (15-51); MICROCYTOSIS 1+ (0-0); MONOCYTE #M 2.1 10^3/ul (0.3-0.9); MONOCYTES % (M) 20 % (0-11); PLATELET ESTIMATE DECREASED; POIKILOCYTOSIS 1+ (0-0); POLYCHROMASIA 1+ (0-0); SEG NEUT #M 7.1 10^3/ul (1.6-7.5); SEGMENTED NEUTROPHILS (M) % 66 % (39-77); SMUDGE%M 9 % (0-0); TARGET CELLS 1+ (0-0)
[2018-11-19] MEDS: DOCUSATE SODIUM 100 MG CAP PO (20:11)
[2018-11-19] MEDS: FAMOTIDINE 20 MG TAB PO (20:11)
[2018-11-19] MEDS: TAMSULOSIN (SR) 0.4 MG CAP PO (20:11)
[2018-11-20] MEDS: LORAZEPAM 2 MG INJ IV ×3 (00:06→13:07)
[2018-11-20] MEDS: HYDROmorphONE 2 MG/ML SYG IV ×5 (00:06→18:36)
[2018-11-20] MEDS: LEVOTHYROXINE 75 MCG TAB PO (06:23)
[2018-11-20 07:02] LABS: ADD MAN DIFF? NO
[2018-11-20 07:11] LABS: WHITE BLOOD COUNT 13.7 10^3/ul (4.8-10.8)
[2018-11-20 07:11] LABS: ABNORMAL IP MESSAGE 1; BASOPHIL # 0.2 10^3/ul (0.0-0.1); BASOPHILS % 1.2 % (0.0-2.0); EOSINOPHILS # 0.6 10^3/ul (0.0-0.5); EOSINOPHILS % 4.5 % (0.0-7.0); HEMATOCRIT 32.9 % (42.0-52.0); LYMPHOCYTES % 7.4 % (15.0-51.0); MEAN CORPUSCULAR HEMOGLOBIN 21.2 pg (29.0-33.0); MEAN CORPUSCULAR HGB CONC 27.4 g/dl (32.0-37.0); MEAN CORPUSCULAR VOLUME 77.4 fl (82.0-101.0); MONOCYTE # 3.3 10^3/ul (0.3-0.9); MONOCYTES % 24.1 % (0.0-11.0); NEUTROPHILS % 58.3 % (39.0-77.0); PLATELET COUNT 124 10^3/UL (140-415); POSITIVE DIFF @See below; RED BLOOD COUNT 4.25 10^6/ul (4.70-6.10); RED CELL DISTRIBUTION WIDTH 23.3 % (11.5-14.5)
[2018-11-20 07:25] LABS: ANION GAP 10 (5-13); BLOOD UREA NITROGEN 39 mg/dl (7-20); CARBON DIOXIDE 23 mmol/L (21-31); CHLORIDE 107 mmol/L (97-110); CREATININE 1.45 mg/dl (0.61-1.24); Estimated GFR 49 mL/min (>60); GLUCOSE 92 mg/dl (70-220); POTASSIUM 4.8 mmol/L (3.5-5.1); SODIUM 140 mmol/L (135-144)
[2018-11-20] MEDS: BUDESONIDE (NEB) 0.5MG/2ML AMP INH ×2 (08:00→19:54)
[2018-11-20] MEDS: ARFORMOTEROL TARTRATE 15MCG/2 ML AMP INH ×2 (08:55→19:53)
[2018-11-20] MEDS: LACTULOSE 30ML CUP PO ×2 (09:00→20:37)
[2018-11-20] MEDS: NICOTINE (21 MG/24 HR) PATCH TRANSDERM (09:09)
[2018-11-20] MEDS: DORZOLAMIDE/TIMOLOL/PF 0.2 ML DROPERETTE BOTH EYES ×2 (09:09→20:37)
[2018-11-20] MEDS: ASCORBIC ACID 500 MG TAB PO (09:10)
[2018-11-20] MEDS: RIFAXIMIN 550 MG TAB PO ×2 (09:10→20:37)
[2018-11-20] MEDS: THIAMINE 100 MG TAB PO (09:10)
[2018-11-20] MEDS: NA BICARBONATE 650 MG TAB PO ×3 (09:10→20:37)
[2018-11-20] MEDS: GABAPENTIN 100 MG CAP PO ×3 (09:10→20:37)
[2018-11-20] MEDS: FERROUS SULFATE (EC) 325 MG TAB PO (09:11)
[2018-11-20] MEDS: FOLIC ACID 1 MG TAB PO (09:11)
[2018-11-20] MEDS: ALLOPURINOL 100 MG TAB PO (09:11)
[2018-11-20] MEDS: FAMOTIDINE 20 MG TAB PO ×2 (09:11→20:37)
[2018-11-20] MEDS: SPIRONOLACTONE 50 MG TAB PO (09:11)
[2018-11-20] MEDS: FUROSEMIDE 20 MG INJ IV (09:12)
[2018-11-20] MEDS: METOPROLOL (XL) 50 MG TAB PO (09:12)
[2018-11-20] MEDS: HYDROCODONE/APAP (5/325) TAB PO ×2 (15:12→21:11)
[2018-11-20] MEDS: LORAZEPAM 1 MG TAB PO (20:36)
[2018-11-20] MEDS: TAMSULOSIN (SR) 0.4 MG CAP PO (20:37)
[2018-11-20] MEDS: DOCUSATE SODIUM 100 MG CAP PO (20:37)
[2018-11-21] MEDS: HYDROmorphONE 2 MG/ML SYG IV (00:41)
[2018-11-21] MEDS: LEVOTHYROXINE 75 MCG TAB PO (05:33)
[2018-11-21] MEDS: HYDROmorphONE 1 MG/ML SYG IV ×5 (05:34→22:06)
[2018-11-21] MEDS: HYDROCODONE/APAP (5/325) TAB PO ×2 (07:50→21:00)
[2018-11-21] MEDS: BUDESONIDE (NEB) 0.5MG/2ML AMP INH ×2 (08:00→20:20)
[2018-11-21] MEDS: ARFORMOTEROL TARTRATE 15MCG/2 ML AMP INH ×2 (08:53→20:20)
[2018-11-21] MEDS: LACTULOSE 30ML CUP PO ×2 (09:00→21:00)
[2018-11-21] MEDS: DORZOLAMIDE/TIMOLOL/PF 0.2 ML DROPERETTE BOTH EYES ×2 (09:02→21:01)
[2018-11-21] MEDS: SPIRONOLACTONE 50 MG TAB PO (09:02)
[2018-11-21] MEDS: RIFAXIMIN 550 MG TAB PO ×2 (09:02→21:00)
[2018-11-21] MEDS: ASCORBIC ACID 500 MG TAB PO (09:02)
[2018-11-21] MEDS: FERROUS SULFATE (EC) 325 MG TAB PO (09:02)
[2018-11-21] MEDS: AMLODIPINE 5 MG TAB PO (09:02)
[2018-11-21] MEDS: FAMOTIDINE 20 MG TAB PO ×2 (09:02→21:01)
[2018-11-21] MEDS: THIAMINE 100 MG TAB PO (09:02)
[2018-11-21] MEDS: NA BICARBONATE 650 MG TAB PO ×3 (09:02→21:01)
[2018-11-21] MEDS: FOLIC ACID 1 MG TAB PO (09:02)
[2018-11-21] MEDS: ALLOPURINOL 100 MG TAB PO (09:03)
[2018-11-21] MEDS: GABAPENTIN 100 MG CAP PO ×3 (09:03→21:01)
[2018-11-21] MEDS: NICOTINE (21 MG/24 HR) PATCH TRANSDERM (09:03)
[2018-11-21] MEDS: METOPROLOL (XL) 50 MG TAB PO (09:03)
[2018-11-21] MEDS: FUROSEMIDE 20 MG INJ IV (09:04)
[2018-11-21 10:30] LABS: ANION GAP 10 (5-13); BLOOD UREA NITROGEN 46 mg/dl (7-20); CALCIUM 9.1 mg/dl (8.4-10.2); CARBON DIOXIDE 21 mmol/L (21-31); CHLORIDE 108 mmol/L (97-110); CREATININE 1.54 mg/dl (0.61-1.24); Estimated GFR 46 mL/min (>60); GLUCOSE 141 mg/dl (70-220); POTASSIUM 4.5 mmol/L (3.5-5.1); SODIUM 139 mmol/L (135-144)
[2018-11-21 10:38] LABS: WHITE BLOOD COUNT 13.9 10^3/ul (4.8-10.8)
[2018-11-21 10:38] LABS: ABNORMAL IP MESSAGE 1; HEMATOCRIT 32.9 % (42.0-52.0); HEMOGLOBIN 9.1 g/dl (14.0-18.0); MEAN CORPUSCULAR HEMOGLOBIN 21.8 pg (29.0-33.0); MEAN CORPUSCULAR HGB CONC 27.7 g/dl (32.0-37.0); MEAN CORPUSCULAR VOLUME 78.7 fl (82.0-101.0); PLATELET COUNT 160 10^3/UL (140-415); POSITIVE DIFF @See below; RED BLOOD COUNT 4.18 10^6/ul (4.70-6.10); RED CELL DISTRIBUTION WIDTH 23.1 % (11.5-14.5)
[2018-11-21 10:44] LABS: ADD MAN DIFF? YES
[2018-11-21 11:00] LABS: ANISOCYTOSIS 2+ (0-0); BASOPHIL #M 0.4 10^3/ul (0.0-0.0); BASOPHILS % (M) 3 % (0-2); BURR CELLS 1+ (0-0); EOSINOPHILS % (M) 8 % (0-7); HYPOCHROMASIA 2+ (0-0); LYMPHOCYTES #M 0.8 10^3/ul (0.8-2.9); LYMPHOCYTES % (M) 6 % (15-51); METAMYELOCYTES #M 0.1 10^3/ul (0.0-0.0); METAMYELOCYTES %M 1 % (0-0); MICROCYTOSIS 1+ (0-0); MONOCYTE #M 2.2 10^3/ul (0.3-0.9); MONOCYTES % (M) 16 % (0-11); PLATELET ESTIMATE NORMAL; POIKILOCYTOSIS 1+ (0-0); POLYCHROMASIA 3+ (0-0); REACTIVE LYMPHOCYTES #M 0.1 10^3/ul (0.0-0.0); REACTIVE LYMPHOCYTES% (M) 1 % (0-0); SEGMENTED NEUTROPHILS (M) % 65 % (39-77); SMUDGE%M 2 % (0-0); TARGET CELLS 1+ (0-0)
[2018-11-21] MEDS ORDERED: DOXYCYCLINE 100 MG TAB PO (13:00)
[2018-11-21] MEDS: LORAZEPAM 2 MG INJ IV ×2 (16:05→22:29)
[2018-11-21] MEDS: EPOETIN ALFA-EPBX (NON-ESRD 10,000 UNIT/ML VIAL SC (17:55)
[2018-11-21] MEDS: TAMSULOSIN (SR) 0.4 MG CAP PO (21:01)
[2018-11-21] MEDS: DOXYCYCLINE 100 MG TAB PO (21:01)
[2018-11-21] MEDS: DOCUSATE SODIUM 100 MG CAP PO (21:01)
[2018-11-22] MEDS: HYDROCODONE/APAP (5/325) TAB PO ×4 (00:49→20:27)
[2018-11-22] MEDS: HYDROmorphONE 1 MG/ML SYG IV ×4 (02:08→21:27)
[2018-11-22] MEDS: LEVOTHYROXINE 75 MCG TAB PO (05:15)
[2018-11-22] MEDS: LORAZEPAM 2 MG INJ IV ×2 (05:17→20:34)
[2018-11-22 07:33] LABS: ADD MAN DIFF? NO
[2018-11-22 07:39] LABS: ABNORMAL IP MESSAGE 1; BASOPHIL # 0.2 10^3/ul (0.0-0.1); EOSINOPHILS # 0.9 10^3/ul (0.0-0.5); EOSINOPHILS % 5.5 % (0.0-7.0); HEMATOCRIT 33.5 % (42.0-52.0); HEMOGLOBIN 9.1 g/dl (14.0-18.0); LYMPHOCYTES % 6.6 % (15.0-51.0); MEAN CORPUSCULAR HEMOGLOBIN 21.4 pg (29.0-33.0); MEAN CORPUSCULAR HGB CONC 27.2 g/dl (32.0-37.0); MEAN CORPUSCULAR VOLUME 78.6 fl (82.0-101.0); MONOCYTE # 3.4 10^3/ul (0.3-0.9); MONOCYTES % 21.9 % (0.0-11.0); NEUTROPHIL # 9.4 10^3/ul (1.6-7.5); NEUTROPHILS % 60.1 % (39.0-77.0); PLATELET COUNT 165 10^3/UL (140-415); POSITIVE DIFF @See below; RED BLOOD COUNT 4.26 10^6/ul (4.70-6.10); RED CELL DISTRIBUTION WIDTH 23.3 % (11.5-14.5)
[2018-11-22 07:39] LABS: WHITE BLOOD COUNT 15.6 10^3/ul (4.8-10.8)
[2018-11-22] MEDS: ARFORMOTEROL TARTRATE 15MCG/2 ML AMP INH ×2 (07:57→20:32)
[2018-11-22] MEDS: BUDESONIDE (NEB) 0.5MG/2ML AMP INH ×2 (07:57→20:32)
[2018-11-22 08:03] LABS: ANION GAP 9 (5-13); BLOOD UREA NITROGEN 47 mg/dl (7-20); CARBON DIOXIDE 24 mmol/L (21-31); CHLORIDE 107 mmol/L (97-110); CREATININE 1.67 mg/dl (0.61-1.24); Estimated GFR 42 mL/min (>60); GLUCOSE 114 mg/dl (70-220); POTASSIUM 4.5 mmol/L (3.5-5.1); SODIUM 140 mmol/L (135-144)
[2018-11-22] MEDS: LACTULOSE 30ML CUP PO ×2 (09:00→20:33)
[2018-11-22] MEDS: NA BICARBONATE 650 MG TAB PO ×3 (09:25→20:27)
[2018-11-22] MEDS: AMLODIPINE 5 MG TAB PO (09:25)
[2018-11-22] MEDS: GABAPENTIN 100 MG CAP PO ×3 (09:26→20:27)
[2018-11-22] MEDS: THIAMINE 100 MG TAB PO (09:26)
[2018-11-22] MEDS: ASCORBIC ACID 500 MG TAB PO (09:26)
[2018-11-22] MEDS: FUROSEMIDE 20 MG TAB PO (09:26)
[2018-11-22] MEDS: FERROUS SULFATE (EC) 325 MG TAB PO (09:26)
[2018-11-22] MEDS: METOPROLOL (XL) 50 MG TAB PO (09:26)
[2018-11-22] MEDS: SPIRONOLACTONE 50 MG TAB PO (09:26)
[2018-11-22] MEDS: RIFAXIMIN 550 MG TAB PO ×2 (09:26→20:27)
[2018-11-22] MEDS: FAMOTIDINE 20 MG TAB PO ×2 (09:26→20:27)
[2018-11-22] MEDS: ALLOPURINOL 100 MG TAB PO (09:27)
[2018-11-22] MEDS: DORZOLAMIDE/TIMOLOL/PF 0.2 ML DROPERETTE BOTH EYES ×2 (09:27→20:27)
[2018-11-22] MEDS: FOLIC ACID 1 MG TAB PO (09:31)
[2018-11-22] MEDS: NICOTINE (21 MG/24 HR) PATCH TRANSDERM (09:31)
[2018-11-22] MEDS: DOXYCYCLINE 100 MG TAB PO ×2 (09:33→20:49)
[2018-11-22] MEDS: BUSPIRONE 10 MG TAB PO ×2 (14:02→20:27)
[2018-11-22] MEDS: DOCUSATE SODIUM 100 MG CAP PO (20:27)
[2018-11-22] MEDS: TAMSULOSIN (SR) 0.4 MG CAP PO (20:27)
[2018-11-23] MEDS: HYDROCODONE/APAP (5/325) TAB PO ×4 (00:41→23:59)
[2018-11-23] MEDS: HYDROmorphONE 1 MG/ML SYG IV ×5 (01:36→20:57)
[2018-11-23] MEDS: LORAZEPAM 2 MG INJ IV ×3 (03:16→18:01)
[2018-11-23] MEDS: LEVOTHYROXINE 75 MCG TAB PO (05:52)
[2018-11-23] MEDS: BUDESONIDE (NEB) 0.5MG/2ML AMP INH ×2 (08:00→20:33)
[2018-11-23] MEDS: NICOTINE (21 MG/24 HR) PATCH TRANSDERM (09:00)
[2018-11-23] MEDS: NA BICARBONATE 650 MG TAB PO ×3 (09:00→20:44)
[2018-11-23] MEDS: GABAPENTIN 100 MG CAP PO ×3 (09:00→20:44)
[2018-11-23] MEDS: ARFORMOTEROL TARTRATE 15MCG/2 ML AMP INH ×3 (09:45→20:33)
[2018-11-23] MEDS: LACTULOSE 30ML CUP PO ×2 (13:47→20:44)
[2018-11-23] MEDS: RIFAXIMIN 550 MG TAB PO ×2 (13:47→20:44)
[2018-11-23] MEDS: ASCORBIC ACID 500 MG TAB PO (13:47)
[2018-11-23] MEDS: DORZOLAMIDE/TIMOLOL/PF 0.2 ML DROPERETTE BOTH EYES ×2 (13:48→20:44)
[2018-11-23] MEDS: DOXYCYCLINE 100 MG TAB PO ×2 (13:48→20:44)
[2018-11-23] MEDS: FERROUS SULFATE (EC) 325 MG TAB PO (13:49)
[2018-11-23] MEDS: FAMOTIDINE 20 MG TAB PO ×2 (13:49→20:44)
[2018-11-23] MEDS: FOLIC ACID 1 MG TAB PO (13:49)
[2018-11-23] MEDS: THIAMINE 100 MG TAB PO (13:50)
[2018-11-23] MEDS: ALLOPURINOL 100 MG TAB PO (13:50)
[2018-11-23] MEDS: BUSPIRONE 10 MG TAB PO ×2 (13:50→20:44)
[2018-11-23] MEDS: SPIRONOLACTONE 50 MG TAB PO (13:54)
[2018-11-23] MEDS: FUROSEMIDE 20 MG TAB PO (13:54)
[2018-11-23] MEDS: METOPROLOL (XL) 50 MG TAB PO (13:57)
[2018-11-23] MEDS: AMLODIPINE 5 MG TAB PO (13:58)
[2018-11-23] MEDS: EPOETIN ALFA-EPBX (NON-ESRD 10,000 UNIT/ML VIAL SC (16:54)
[2018-11-23] MEDS: DOCUSATE SODIUM 100 MG CAP PO (20:44)
[2018-11-23] MEDS: TAMSULOSIN (SR) 0.4 MG CAP PO (20:44)
[2018-11-24] MEDS: HYDROmorphONE 1 MG/ML SYG IV ×6 (00:57→21:33)
[2018-11-24] MEDS: HYDROCODONE/APAP (5/325) TAB PO ×5 (04:02→20:33)
[2018-11-24] MEDS: LEVOTHYROXINE 75 MCG TAB PO (05:02)
[2018-11-24] MEDS: LORAZEPAM 2 MG INJ IV ×4 (06:04→19:51)
[2018-11-24 07:44] LABS: CARBON DIOXIDE 22 mmol/L (21-31); CHLORIDE 110 mmol/L (97-110); SODIUM 142 mmol/L (135-144)
[2018-11-24 07:45] LABS: ANION GAP 10 (5-13); BLOOD UREA NITROGEN 44 mg/dl (7-20); CALCIUM 8.9 mg/dl (8.4-10.2); CREATININE 1.64 mg/dl (0.61-1.24); Estimated GFR 43 mL/min (>60); GLUCOSE 91 mg/dl (70-220)
[2018-11-24] MEDS: ARFORMOTEROL TARTRATE 15MCG/2 ML AMP INH ×2 (08:47→20:10)
[2018-11-24] MEDS: BUDESONIDE (NEB) 0.5MG/2ML AMP INH ×2 (08:57→20:10)
[2018-11-24] MEDS: LACTULOSE 30ML CUP PO ×2 (09:00→20:36)
[2018-11-24] MEDS: ALLOPURINOL 100 MG TAB PO (09:02)
[2018-11-24] MEDS: DOXYCYCLINE 100 MG TAB PO ×2 (09:02→20:35)
[2018-11-24] MEDS: FOLIC ACID 1 MG TAB PO (09:02)
[2018-11-24] MEDS: RIFAXIMIN 550 MG TAB PO ×2 (09:03→20:34)
[2018-11-24] MEDS: THIAMINE 100 MG TAB PO (09:03)
[2018-11-24] MEDS: ASCORBIC ACID 500 MG TAB PO (09:03)
[2018-11-24] MEDS: NA BICARBONATE 650 MG TAB PO ×3 (09:04→20:35)
[2018-11-24] MEDS: FERROUS SULFATE (EC) 325 MG TAB PO (09:04)
[2018-11-24] MEDS: FUROSEMIDE 20 MG TAB PO (09:04)
[2018-11-24] MEDS: BUSPIRONE 10 MG TAB PO ×2 (09:05→20:35)
[2018-11-24] MEDS: SPIRONOLACTONE 50 MG TAB PO (09:05)
[2018-11-24] MEDS: FAMOTIDINE 20 MG TAB PO ×2 (09:05→20:35)
[2018-11-24] MEDS: AMLODIPINE 5 MG TAB PO (09:06)
[2018-11-24] MEDS: METOPROLOL (XL) 50 MG TAB PO (09:06)
[2018-11-24] MEDS: DORZOLAMIDE/TIMOLOL/PF 0.2 ML DROPERETTE BOTH EYES ×2 (09:07→20:44)
[2018-11-24] MEDS: GABAPENTIN 100 MG CAP PO ×3 (09:16→20:35)
[2018-11-24] MEDS: NICOTINE (21 MG/24 HR) PATCH TRANSDERM (09:17)
[2018-11-24 11:52] LABS: WHITE BLOOD COUNT 20.8 10^3/ul (4.8-10.8)
[2018-11-24 11:52] LABS: ABNORMAL IP MESSAGE 1; HEMATOCRIT 33.4 % (42.0-52.0); HEMOGLOBIN 9.3 g/dl (14.0-18.0); MEAN CORPUSCULAR HEMOGLOBIN 21.4 pg (29.0-33.0); MEAN CORPUSCULAR HGB CONC 27.8 g/dl (32.0-37.0); NUCLEATED RED BLOOD CELLS% 0.1 /100WBC (0.0-0.0); POSITIVE DIFF @See below; RED BLOOD COUNT 4.34 10^6/ul (4.70-6.10); RED CELL DISTRIBUTION WIDTH 23.2 % (11.5-14.5)
[2018-11-24 11:53] LABS: ADD MAN DIFF? YES; PLATELET COUNT 204 10^3/UL (140-415)
[2018-11-24 12:26] LABS: ANISOCYTOSIS 2+ (0-0); BAND NEUTROPHILS #M 0.6 10^3/ul (0.0-0.6); BAND NEUTROPHILS % (M) 3 % (0-4); BASOPHIL #M 0.2 10^3/ul (0.0-0.0); BASOPHILS % (M) 1 % (0-2); BURR CELLS 1+ (0-0); ELLIPTO 1+ (0-0); EOSINOPHILS % (M) 2 % (0-7); GIANT THROMBO% (M) 2 % (0-0); HYPOCHROMASIA 3+ (0-0); LYMPHOCYTES % (M) 5 % (15-51); MICROCYTOSIS 1+ (0-0); MONOCYTE #M 4.9 10^3/ul (0.3-0.9); MONOCYTES % (M) 24 % (0-11); MYELOCYTES #M 0.2 10^3/ul (0.0-0.0); MYELOCYTES % (M) 1 % (0-0); OVALOCYTES 1+ (0-0); PLATELET ESTIMATE NORMAL; POIKILOCYTOSIS 2+ (0-0); POLYCHROMASIA 3+ (0-0); SEG NEUT #M 13.4 10^3/ul (1.6-7.5); SEGMENTED NEUTROPHILS (M) % 64 % (39-77); SMUDGE%M 3 % (0-0)
[2018-11-24] MEDS: MEROPENEM 500MG/50 ML (PMX) 50 ML IVPB ×2 (15:06→22:01)
[2018-11-24] MEDS: TAMSULOSIN (SR) 0.4 MG CAP PO (20:35)
[2018-11-24] MEDS: DOCUSATE SODIUM 100 MG CAP PO (20:35)
[2018-11-25] MEDS: HYDROCODONE/APAP (5/325) TAB PO ×5 (01:07→18:18)
[2018-11-25] MEDS: HYDROmorphONE 1 MG/ML SYG IV ×5 (02:05→19:53)
[2018-11-25] MEDS: LORAZEPAM 2 MG INJ IV ×3 (04:01→21:47)
[2018-11-25] MEDS: LEVOTHYROXINE 75 MCG TAB PO (05:10)
[2018-11-25] MEDS: ARFORMOTEROL TARTRATE 15MCG/2 ML AMP INH ×2 (08:50→19:54)
[2018-11-25] MEDS: BUDESONIDE (NEB) 0.5MG/2ML AMP INH ×2 (08:58→19:57)
[2018-11-25] MEDS: DORZOLAMIDE/TIMOLOL/PF 0.2 ML DROPERETTE BOTH EYES ×3 (09:00→21:00)
[2018-11-25] MEDS: LACTULOSE 30ML CUP PO ×3 (09:00→21:45)
[2018-11-25] MEDS: DOXYCYCLINE 100 MG TAB PO ×2 (09:09→21:52)
[2018-11-25] MEDS: NA BICARBONATE 650 MG TAB PO ×3 (09:10→21:46)
[2018-11-25] MEDS: GABAPENTIN 100 MG CAP PO ×3 (09:10→21:00)
[2018-11-25] MEDS: NICOTINE (21 MG/24 HR) PATCH TRANSDERM (09:10)
[2018-11-25] MEDS: FERROUS SULFATE (EC) 325 MG TAB PO (09:10)
[2018-11-25] MEDS: RIFAXIMIN 550 MG TAB PO ×2 (09:11→21:46)
[2018-11-25] MEDS: METOPROLOL (XL) 50 MG TAB PO (09:11)
[2018-11-25] MEDS: BUSPIRONE 10 MG TAB PO ×2 (09:11→21:46)
[2018-11-25] MEDS: FAMOTIDINE 20 MG TAB PO ×2 (09:11→21:48)
[2018-11-25] MEDS: ALLOPURINOL 100 MG TAB PO (09:11)
[2018-11-25] MEDS: ASCORBIC ACID 500 MG TAB PO (09:11)
[2018-11-25] MEDS: THIAMINE 100 MG TAB PO (09:11)
[2018-11-25] MEDS: FOLIC ACID 1 MG TAB PO (09:11)
[2018-11-25] MEDS: AMLODIPINE 5 MG TAB PO (09:12)
[2018-11-25] MEDS: SPIRONOLACTONE 50 MG TAB PO (09:12)
[2018-11-25] MEDS: FUROSEMIDE 20 MG TAB PO (09:12)
[2018-11-25] MEDS: MEROPENEM 500MG/50 ML (PMX) 50 ML IVPB ×2 (09:24→21:49)
[2018-11-25 11:54] LABS: ABNORMAL IP MESSAGE 1; HEMATOCRIT 35.4 % (42.0-52.0); HEMOGLOBIN 9.8 g/dl (14.0-18.0); MEAN CORPUSCULAR HEMOGLOBIN 21.5 pg (29.0-33.0); MEAN CORPUSCULAR HGB CONC 27.7 g/dl (32.0-37.0); MEAN CORPUSCULAR VOLUME 77.8 fl (82.0-101.0); PLATELET COUNT 210 10^3/UL (140-415); POSITIVE DIFF @See below; RED BLOOD COUNT 4.55 10^6/ul (4.70-6.10); RED CELL DISTRIBUTION WIDTH 23.8 % (11.5-14.5)
[2018-11-25 11:54] LABS: WHITE BLOOD COUNT 21.3 10^3/ul (4.8-10.8)
[2018-11-25 11:57] LABS: ADD MAN DIFF? YES
[2018-11-25 12:11] LABS: PROTIME 15.3 Sec (11.9-14.9); PT RATIO 1.2
[2018-11-25 12:12] LABS: PARTIAL THROMBOPLASTIN TIME 31.9 Sec (23.0-35.0)
[2018-11-25 12:16] LABS: ALANINE AMINOTRANSFERASE 50 IU/L (13-69); ALBUMIN 4.1 g/dl (3.3-4.9); ALKALINE PHOSPHATASE 124 IU/L (42-121); ANION GAP 8 (5-13); ASPARTATE AMINO TRANSFERASE 53 IU/L (15-46); BILIRUBIN,INDIRECT 0.2 mg/dl (0-1.1); BILIRUBIN,TOTAL 0.2 mg/dl (0.2-1.3); BLOOD UREA NITROGEN 42 mg/dl (7-20); CARBON DIOXIDE 20 mmol/L (21-31); CHLORIDE 107 mmol/L (97-110); CREATININE 1.49 mg/dl (0.61-1.24); Estimated GFR 48 mL/min (>60); GLUCOSE 92 mg/dl (70-220); POTASSIUM 5.1 mmol/L (3.5-5.1); SODIUM 135 mmol/L (135-144); TOTAL PROTEIN 7.5 g/dl (6.1-8.1)
[2018-11-25 12:52] LABS: ANISOCYTOSIS 2+ (0-0); BAND NEUTROPHILS #M 0.6 10^3/ul (0.0-0.6); BAND NEUTROPHILS % (M) 3 % (0-4); BASOPHIL #M 0.4 10^3/ul (0.0-0.0); BASOPHILS % (M) 2 % (0-2); BURR CELLS 2+ (0-0); ELLIPTO 1+ (0-0); EOSINOPHILS % (M) 6 % (0-7); GIANT THROMBO% (M) 3 % (0-0); HYPOCHROMASIA 3+ (0-0); LYMPHOCYTES #M 1.7 10^3/ul (0.8-2.9); LYMPHOCYTES % (M) 8 % (15-51); METAMYELOCYTES #M 0.2 10^3/ul (0.0-0.0); METAMYELOCYTES %M 1 % (0-0); MICROCYTOSIS 2+ (0-0); MONOCYTE #M 2.1 10^3/ul (0.3-0.9); MONOCYTES % (M) 10 % (0-11); MYELOCYTES % (M) 5 % (0-0); PLATELET ESTIMATE NORMAL; POIKILOCYTOSIS 2+ (0-0); POLYCHROMASIA 1+ (0-0); SEGMENTED NEUTROPHILS (M) % 65 % (39-77); SMUDGE%M 1 % (0-0)
[2018-11-25 12:58] LABS: MAGNESIUM 1.7 mg/dl (1.7-2.5)
[2018-11-25 13:45] LABS: CARCINOEMBRYONIC ANTIGEN 3.2 ng/ml (0.0-5.0)
[2018-11-25] MEDS: EPOETIN ALFA-EPBX (NON-ESRD 10,000 UNIT/ML VIAL SC (18:00)
[2018-11-25] MEDS: DOCUSATE SODIUM 100 MG CAP PO (21:00)
[2018-11-25] MEDS: TAMSULOSIN (SR) 0.4 MG CAP PO (21:46)
[2018-11-26] MEDS: HYDROmorphONE 1 MG/ML SYG IV ×5 (00:16→20:04)
[2018-11-26] MEDS: HYDROCODONE/APAP (5/325) TAB PO ×2 (01:30→18:13)
[2018-11-26] MEDS: LORAZEPAM 2 MG INJ IV (06:03)
[2018-11-26] MEDS: LEVOTHYROXINE 75 MCG TAB PO (06:03)
[2018-11-26] MEDS: LACTULOSE 30ML CUP PO ×4 (08:24→21:00)
[2018-11-26] MEDS: METOPROLOL (XL) 50 MG TAB PO (08:24)
[2018-11-26] MEDS: GABAPENTIN 100 MG CAP PO ×3 (08:25→21:00)
[2018-11-26] MEDS: FUROSEMIDE 20 MG TAB PO (08:25)
[2018-11-26] MEDS: NA BICARBONATE 650 MG TAB PO ×3 (08:25→21:19)
[2018-11-26] MEDS: BUSPIRONE 10 MG TAB PO ×2 (08:26→21:18)
[2018-11-26] MEDS: ASCORBIC ACID 500 MG TAB PO (08:26)
[2018-11-26] MEDS: FERROUS SULFATE (EC) 325 MG TAB PO (08:26)
[2018-11-26] MEDS: ALLOPURINOL 100 MG TAB PO (08:26)
[2018-11-26] MEDS: SPIRONOLACTONE 50 MG TAB PO (08:26)
[2018-11-26] MEDS: THIAMINE 100 MG TAB PO (08:26)
[2018-11-26] MEDS: RIFAXIMIN 550 MG TAB PO ×2 (08:26→21:18)
[2018-11-26] MEDS: FOLIC ACID 1 MG TAB PO (08:26)
[2018-11-26] MEDS: AMLODIPINE 5 MG TAB PO (08:26)
[2018-11-26] MEDS: FAMOTIDINE 20 MG TAB PO ×2 (08:26→21:18)
[2018-11-26] MEDS: NICOTINE (21 MG/24 HR) PATCH TRANSDERM (08:27)
[2018-11-26] MEDS: MEROPENEM 500MG/50 ML (PMX) 50 ML IVPB ×2 (08:28→21:24)
[2018-11-26] MEDS: DOXYCYCLINE 100 MG TAB PO ×2 (08:30→21:19)
[2018-11-26] MEDS: DORZOLAMIDE/TIMOLOL/PF 0.2 ML DROPERETTE BOTH EYES ×2 (08:34→21:00)
[2018-11-26] MEDS: ARFORMOTEROL TARTRATE 15MCG/2 ML AMP INH ×2 (09:30→20:12)
[2018-11-26] MEDS: BUDESONIDE (NEB) 0.5MG/2ML AMP INH ×2 (09:31→20:12)
[2018-11-26] MEDS: TAMSULOSIN (SR) 0.4 MG CAP PO (21:18)
[2018-11-26] MEDS: DOCUSATE SODIUM 100 MG CAP PO (21:18)
[2018-11-26] MEDS: HYDROCODONE/APAP (10/325) TAB PO (22:22)
[2018-11-27] MEDS: HYDROmorphONE 1 MG/ML SYG IV ×6 (00:02→22:44)
[2018-11-27] MEDS: LORAZEPAM 2 MG INJ IV ×4 (01:35→23:19)
[2018-11-27] MEDS: LEVOTHYROXINE 75 MCG TAB PO (05:32)
[2018-11-27] MEDS: HYDROCODONE/APAP (10/325) TAB PO ×4 (05:32→19:24)
[2018-11-27] MEDS: ARFORMOTEROL TARTRATE 15MCG/2 ML AMP INH ×2 (08:12→20:28)
[2018-11-27] MEDS: BUDESONIDE (NEB) 0.5MG/2ML AMP INH ×2 (08:14→20:27)
[2018-11-27] MEDS: FUROSEMIDE 20 MG TAB PO (08:39)
[2018-11-27] MEDS: RIFAXIMIN 550 MG TAB PO ×2 (08:39→21:47)
[2018-11-27] MEDS: THIAMINE 100 MG TAB PO (08:39)
[2018-11-27] MEDS: DOXYCYCLINE 100 MG TAB PO ×2 (08:39→21:46)
[2018-11-27] MEDS: FOLIC ACID 1 MG TAB PO (08:39)
[2018-11-27] MEDS: FAMOTIDINE 20 MG TAB PO ×2 (08:40→21:47)
[2018-11-27] MEDS: METOPROLOL (XL) 50 MG TAB PO (08:40)
[2018-11-27] MEDS: NA BICARBONATE 650 MG TAB PO ×3 (08:40→21:46)
[2018-11-27] MEDS: ALLOPURINOL 100 MG TAB PO (08:40)
[2018-11-27] MEDS: BUSPIRONE 10 MG TAB PO ×2 (08:40→21:46)
[2018-11-27] MEDS: FERROUS SULFATE (EC) 325 MG TAB PO (08:40)
[2018-11-27] MEDS: SPIRONOLACTONE 50 MG TAB PO (08:40)
[2018-11-27] MEDS: GABAPENTIN 100 MG CAP PO ×4 (08:40→21:46)
[2018-11-27] MEDS: DORZOLAMIDE/TIMOLOL/PF 0.2 ML DROPERETTE BOTH EYES ×3 (08:41→19:49)
[2018-11-27] MEDS: NICOTINE (21 MG/24 HR) PATCH TRANSDERM (08:41)
[2018-11-27] MEDS: AMLODIPINE 5 MG TAB PO ×2 (08:41→21:47)
[2018-11-27] MEDS: ASCORBIC ACID 500 MG TAB PO (08:41)
[2018-11-27] MEDS: LACTULOSE 30ML CUP PO ×2 (08:46→21:46)
[2018-11-27 08:50] LABS: ABNORMAL IP MESSAGE 1; HEMATOCRIT 36.7 % (42.0-52.0); MEAN CORPUSCULAR HEMOGLOBIN 20.9 pg (29.0-33.0); MEAN CORPUSCULAR HGB CONC 27.2 g/dl (32.0-37.0); MEAN CORPUSCULAR VOLUME 76.6 fl (82.0-101.0); PLATELET COUNT 240 10^3/UL (140-415); POSITIVE DIFF @See below; RED BLOOD COUNT 4.79 10^6/ul (4.70-6.10)
[2018-11-27 08:50] LABS: WHITE BLOOD COUNT 19.3 10^3/ul (4.8-10.8)
[2018-11-27] MEDS: MEROPENEM 500MG/50 ML (PMX) 50 ML IVPB ×2 (08:50→21:46)
[2018-11-27 08:53] LABS: ADD MAN DIFF? YES
[2018-11-27 09:11] LABS: ANION GAP 11 (5-13); BLOOD UREA NITROGEN 33 mg/dl (7-20); CALCIUM 9.1 mg/dl (8.4-10.2); CARBON DIOXIDE 20 mmol/L (21-31); CHLORIDE 110 mmol/L (97-110); CREATININE 1.41 mg/dl (0.61-1.24); Estimated GFR 51 mL/min (>60); GLUCOSE 91 mg/dl (70-220); POTASSIUM 5.3 mmol/L (3.5-5.1); SODIUM 141 mmol/L (135-144)
[2018-11-27 10:12] LABS: ANISOCYTOSIS 1+ (0-0); BAND NEUTROPHILS #M 0.5 10^3/ul (0.0-0.6); BAND NEUTROPHILS % (M) 3 % (0-4); BASOPHIL #M 0.1 10^3/ul (0.0-0.0); BASOPHILS % (M) 1 % (0-2); EOSINOPHILS % (M) 1 % (0-7); GIANT THROMBO% (M) 8 % (0-0); HYPOCHROMASIA 1+ (0-0); LYMPHOCYTES #M 1.1 10^3/ul (0.8-2.9); LYMPHOCYTES % (M) 6 % (15-51); MICROCYTOSIS 1+ (0-0); MONOCYTE #M 3.2 10^3/ul (0.3-0.9); MONOCYTES % (M) 17 % (0-11); MYELOCYTES #M 0.5 10^3/ul (0.0-0.0); MYELOCYTES % (M) 3 % (0-0); PLATELET ESTIMATE NORMAL; POIKILOCYTOSIS 1+ (0-0); POLYCHROMASIA 3+ (0-0); REACTIVE LYMPHOCYTES #M 0.1 10^3/ul (0.0-0.0); REACTIVE LYMPHOCYTES% (M) 1 % (0-0); SEG NEUT #M 13.2 10^3/ul (1.6-7.5); SEGMENTED NEUTROPHILS (M) % 68 % (39-77); SMUDGE%M 10 % (0-0); SPHEROCYTES 1+ (0-0)
[2018-11-27] MEDS: NA POLYST SULFON 15 GM/60 ML BTL PO (14:29)
[2018-11-27] MEDS: EPOETIN ALFA-EPBX (NON-ESRD 10,000 UNIT/ML VIAL SC (18:54)
[2018-11-27] MEDS: DOCUSATE SODIUM 100 MG CAP PO (21:47)
[2018-11-27] MEDS: TAMSULOSIN (SR) 0.4 MG CAP PO (21:47)
[2018-11-28] MEDS: HYDROCODONE/APAP (10/325) TAB PO ×5 (01:06→21:43)
[2018-11-28] MEDS: HYDROmorphONE 1 MG/ML SYG IV ×5 (03:33→23:56)
[2018-11-28] MEDS: LEVOTHYROXINE 75 MCG TAB PO (05:50)
[2018-11-28 06:34] LABS: ABNORMAL IP MESSAGE 1; HEMATOCRIT 37.2 % (42.0-52.0); HEMOGLOBIN 10.3 g/dl (14.0-18.0); MEAN CORPUSCULAR HEMOGLOBIN 21.1 pg (29.0-33.0); MEAN CORPUSCULAR HGB CONC 27.7 g/dl (32.0-37.0); MEAN CORPUSCULAR VOLUME 76.4 fl (82.0-101.0); PLATELET COUNT 257 10^3/UL (140-415); POSITIVE DIFF @See below; RED BLOOD COUNT 4.87 10^6/ul (4.70-6.10); RED CELL DISTRIBUTION WIDTH 23.5 % (11.5-14.5)
[2018-11-28 06:34] LABS: WHITE BLOOD COUNT 18.3 10^3/ul (4.8-10.8)
[2018-11-28] MEDS: LORAZEPAM 2 MG INJ IV ×2 (06:42→14:07)
[2018-11-28 07:03] LABS: ADD MAN DIFF? YES
[2018-11-28 07:05] LABS: ANION GAP 13 (5-13); BLOOD UREA NITROGEN 30 mg/dl (7-20); CARBON DIOXIDE 21 mmol/L (21-31); CHLORIDE 109 mmol/L (97-110); Estimated GFR 52 mL/min (>60); GLUCOSE 69 mg/dl (70-220); SODIUM 143 mmol/L (135-144)
[2018-11-28 07:23] LABS: POTASSIUM 5.6 mmol/L (3.5-5.1)
[2018-11-28] MEDS: LACTULOSE 30ML CUP PO ×2 (08:38→20:04)
[2018-11-28] MEDS: MEROPENEM 500MG/50 ML (PMX) 50 ML IVPB (08:38)
[2018-11-28] MEDS: FUROSEMIDE 20 MG TAB PO (08:39)
[2018-11-28] MEDS: ALLOPURINOL 100 MG TAB PO (08:39)
[2018-11-28] MEDS: THIAMINE 100 MG TAB PO (08:39)
[2018-11-28] MEDS: BUSPIRONE 10 MG TAB PO ×2 (08:39→20:10)
[2018-11-28] MEDS: ASCORBIC ACID 500 MG TAB PO (08:39)
[2018-11-28] MEDS: SPIRONOLACTONE 50 MG TAB PO (08:39)
[2018-11-28] MEDS: GABAPENTIN 100 MG CAP PO ×4 (08:39→20:10)
[2018-11-28] MEDS: FERROUS SULFATE (EC) 325 MG TAB PO (08:39)
[2018-11-28] MEDS: AMLODIPINE 5 MG TAB PO ×2 (08:39→20:05)
[2018-11-28] MEDS: RIFAXIMIN 550 MG TAB PO ×2 (08:40→20:11)
[2018-11-28] MEDS: METOPROLOL (XL) 50 MG TAB PO (08:40)
[2018-11-28] MEDS: FAMOTIDINE 20 MG TAB PO ×2 (08:40→20:05)
[2018-11-28] MEDS: DOXYCYCLINE 100 MG TAB PO ×2 (08:40→20:05)
[2018-11-28] MEDS: FOLIC ACID 1 MG TAB PO (08:40)
[2018-11-28] MEDS: NA BICARBONATE 650 MG TAB PO ×3 (08:40→20:04)
[2018-11-28] MEDS: NICOTINE (21 MG/24 HR) PATCH TRANSDERM (08:41)
[2018-11-28] MEDS: DORZOLAMIDE/TIMOLOL/PF 0.2 ML DROPERETTE BOTH EYES ×3 (08:41→20:07)
[2018-11-28] MEDS: BUDESONIDE (NEB) 0.5MG/2ML AMP INH ×2 (08:56→21:09)
[2018-11-28] MEDS: ARFORMOTEROL TARTRATE 15MCG/2 ML AMP INH ×2 (09:00→21:09)
[2018-11-28 09:33] LABS: ANISOCYTOSIS 2+ (0-0); BAND NEUTROPHILS #M 0.5 10^3/ul (0.0-0.6); BAND NEUTROPHILS % (M) 3 % (0-4); BASOPHIL #M 0.5 10^3/ul (0.0-0.0); BASOPHILS % (M) 3 % (0-2); EOSINOPHILS % (M) 2 % (0-7); GIANT THROMBO% (M) 10 % (0-0); HYPOCHROMASIA 1+ (0-0); LYMPHOCYTES #M 0.9 10^3/ul (0.8-2.9); LYMPHOCYTES % (M) 5 % (15-51); METAMYELOCYTES #M 0.1 10^3/ul (0.0-0.0); METAMYELOCYTES %M 1 % (0-0); MICROCYTOSIS 1+ (0-0); MONOCYTE #M 3.1 10^3/ul (0.3-0.9); MONOCYTES % (M) 17 % (0-11); MYELOCYTES #M 0.1 10^3/ul (0.0-0.0); MYELOCYTES % (M) 1 % (0-0); PLATELET ESTIMATE NORMAL; POIKILOCYTOSIS 2+ (0-0); POLYCHROMASIA 2+ (0-0); PROMYELOCYTES #M 0.3 10^3/ul (0-0); PROMYELOCYTES % (M) 2 % (0-0); REACTIVE LYMPHOCYTES #M 0.5 10^3/ul (0.0-0.0); REACTIVE LYMPHOCYTES% (M) 3 % (0-0); SEG NEUT #M 11.6 10^3/ul (1.6-7.5); SEGMENTED NEUTROPHILS (M) % 63 % (39-77); SMUDGE%M 3 % (0-0)
[2018-11-28] MEDS ORDERED: NA POLYST SULFON 15 GM/60 ML BTL PO (10:30)
[2018-11-28] MEDS: NA POLYST SULFON 15 GM/60 ML BTL PO (10:56)
[2018-11-28] MEDS ORDERED: SODIUM POLYSTYRENE 15 GM KIT (POWDER + SORBITOL) PO (11:00)
[2018-11-28] MEDS: ERTAPENEM SODIUM 1 GM in SOD CHLORIDE 0.9% 100 ML IVPB (12:42)
[2018-11-28] MEDS: DOCUSATE SODIUM 100 MG CAP PO (20:04)
[2018-11-28] MEDS: TAMSULOSIN (SR) 0.4 MG CAP PO (20:05)
[2018-11-29] MEDS: LORAZEPAM 2 MG INJ IV ×3 (01:01→18:58)
[2018-11-29] MEDS: HYDROCODONE/APAP (10/325) TAB PO ×5 (02:03→20:37)
[2018-11-29] MEDS: HYDROmorphONE 1 MG/ML SYG IV ×5 (04:07→22:44)
[2018-11-29] MEDS: LEVOTHYROXINE 75 MCG TAB PO (06:21)
[2018-11-29] MEDS: ARFORMOTEROL TARTRATE 15MCG/2 ML AMP INH ×2 (07:46→20:00)
[2018-11-29] MEDS: BUDESONIDE (NEB) 0.5MG/2ML AMP INH ×2 (07:46→20:00)
[2018-11-29] MEDS: BUSPIRONE 10 MG TAB PO ×2 (08:45→20:35)
[2018-11-29] MEDS: LACTULOSE 30ML CUP PO ×2 (08:45→20:44)
[2018-11-29] MEDS: THIAMINE 100 MG TAB PO (08:45)
[2018-11-29] MEDS: DOXYCYCLINE 100 MG TAB PO ×2 (08:45→20:35)
[2018-11-29] MEDS: RIFAXIMIN 550 MG TAB PO ×2 (08:45→20:35)
[2018-11-29] MEDS: SPIRONOLACTONE 50 MG TAB PO (08:45)
[2018-11-29] MEDS: METOPROLOL (XL) 50 MG TAB PO (08:46)
[2018-11-29] MEDS: AMLODIPINE 5 MG TAB PO ×2 (08:46→20:36)
[2018-11-29] MEDS: ASCORBIC ACID 500 MG TAB PO (08:46)
[2018-11-29] MEDS: FUROSEMIDE 20 MG TAB PO (08:46)
[2018-11-29] MEDS: FOLIC ACID 1 MG TAB PO (08:47)
[2018-11-29] MEDS: FERROUS SULFATE (EC) 325 MG TAB PO (08:47)
[2018-11-29] MEDS: ALLOPURINOL 100 MG TAB PO (08:47)
[2018-11-29] MEDS: FAMOTIDINE 20 MG TAB PO ×2 (08:47→20:35)
[2018-11-29] MEDS: NICOTINE (21 MG/24 HR) PATCH TRANSDERM (08:48)
[2018-11-29] MEDS: NA BICARBONATE 650 MG TAB PO ×3 (08:48→20:35)
[2018-11-29] MEDS: DORZOLAMIDE/TIMOLOL/PF 0.2 ML DROPERETTE BOTH EYES ×2 (08:49→20:44)
[2018-11-29] MEDS: GABAPENTIN 100 MG CAP PO ×3 (08:49→20:37)
[2018-11-29] MEDS: ERTAPENEM SODIUM 1 GM in SOD CHLORIDE 0.9% 100 ML IVPB (12:18)
[2018-11-29 14:22] LABS: ABNORMAL IP MESSAGE 1; HEMATOCRIT 36.6 % (42.0-52.0); HEMOGLOBIN 10.1 g/dl (14.0-18.0); MEAN CORPUSCULAR HGB CONC 27.6 g/dl (32.0-37.0); MEAN CORPUSCULAR VOLUME 76.1 fl (82.0-101.0); PLATELET COUNT 268 10^3/UL (140-415); POSITIVE DIFF @See below; RED BLOOD COUNT 4.81 10^6/ul (4.70-6.10); RED CELL DISTRIBUTION WIDTH 23.3 % (11.5-14.5)
[2018-11-29 14:23] LABS: ADD MAN DIFF? YES
[2018-11-29 14:39] LABS: ANISOCYTOSIS 1+ (0-0); BAND NEUTROPHILS #M 0.3 10^3/ul (0.0-0.6); BAND NEUTROPHILS % (M) 2 % (0-4); BASOPHIL #M 0.1 10^3/ul (0.0-0.0); BASOPHILS % (M) 1 % (0-2); EOSINOPHILS % (M) 5 % (0-7); GIANT THROMBO% (M) 3 % (0-0); LYMPHOCYTES #M 1.1 10^3/ul (0.8-2.9); LYMPHOCYTES % (M) 7 % (15-51); MICROCYTOSIS 1+ (0-0); MONOCYTE #M 2.4 10^3/ul (0.3-0.9); MONOCYTES % (M) 15 % (0-11); MYELOCYTES #M 0.1 10^3/ul (0.0-0.0); MYELOCYTES % (M) 1 % (0-0); OVALOCYTES 1+ (0-0); PLATELET ESTIMATE NORMAL; POIKILOCYTOSIS 1+ (0-0); POLYCHROMASIA 2+ (0-0); PROMYELOCYTES #M 0.4 10^3/ul (0-0); PROMYELOCYTES % (M) 3 % (0-0); REACTIVE LYMPHOCYTES #M 0.1 10^3/ul (0.0-0.0); REACTIVE LYMPHOCYTES% (M) 1 % (0-0); SEG NEUT #M 10.4 10^3/ul (1.6-7.5); SEGMENTED NEUTROPHILS (M) % 65 % (39-77); SMUDGE%M 6 % (0-0); TARGET CELLS 1+ (0-0)
[2018-11-29 14:43] LABS: ANION GAP 11 (5-13); BLOOD UREA NITROGEN 33 mg/dl (7-20); CALCIUM 9.1 mg/dl (8.4-10.2); CARBON DIOXIDE 16 mmol/L (21-31); CHLORIDE 113 mmol/L (97-110); CREATININE 1.52 mg/dl (0.61-1.24); Estimated GFR 47 mL/min (>60); GLUCOSE 82 mg/dl (70-220); POTASSIUM 5.6 mmol/L (3.5-5.1); SODIUM 140 mmol/L (135-144)
[2018-11-29] MEDS: SODIUM POLYSTYRENE 15 GM KIT (POWDER + SORBITOL) PO (15:59)
[2018-11-29] MEDS: EPOETIN ALFA-EPBX (NON-ESRD 10,000 UNIT/ML VIAL SC (17:47)
[2018-11-29] MEDS: DOCUSATE SODIUM 100 MG CAP PO (20:35)
[2018-11-29] MEDS: TAMSULOSIN (SR) 0.4 MG CAP PO (20:36)
[2018-11-29] MEDS: METOPROLOL (XL) 25 MG TAB PO ×2 (21:00→22:49)
[2018-11-30] MEDS: HYDROmorphONE 1 MG/ML SYG IV ×5 (03:37→21:24)
[2018-11-30] MEDS: LACTULOSE 30ML CUP PO ×4 (03:38→20:22)
[2018-11-30 06:21] LABS: ABNORMAL IP MESSAGE 1; HEMATOCRIT 37.8 % (42.0-52.0); HEMOGLOBIN 10.4 g/dl (14.0-18.0); MEAN CORPUSCULAR HEMOGLOBIN 20.7 pg (29.0-33.0); MEAN CORPUSCULAR HGB CONC 27.5 g/dl (32.0-37.0); MEAN CORPUSCULAR VOLUME 75.3 fl (82.0-101.0); PLATELET COUNT 295 10^3/UL (140-415); POSITIVE DIFF @See below; RED BLOOD COUNT 5.02 10^6/ul (4.70-6.10); RED CELL DISTRIBUTION WIDTH 23.5 % (11.5-14.5)
[2018-11-30 06:21] LABS: WHITE BLOOD COUNT 15.5 10^3/ul (4.8-10.8)
[2018-11-30] MEDS: LEVOTHYROXINE 75 MCG TAB PO (06:47)
[2018-11-30 06:48] LABS: ANION GAP 11 (5-13); BLOOD UREA NITROGEN 31 mg/dl (7-20); CALCIUM 8.8 mg/dl (8.4-10.2); CARBON DIOXIDE 21 mmol/L (21-31); CHLORIDE 111 mmol/L (97-110); CREATININE 1.42 mg/dl (0.61-1.24); Estimated GFR 51 mL/min (>60); GLUCOSE 77 mg/dl (70-220); POTASSIUM 5.1 mmol/L (3.5-5.1); SODIUM 143 mmol/L (135-144)
[2018-11-30] MEDS: HYDROCODONE/APAP (10/325) TAB PO ×3 (06:49→20:22)
[2018-11-30 06:50] LABS: ADD MAN DIFF? YES
[2018-11-30] MEDS: BUDESONIDE (NEB) 0.5MG/2ML AMP INH ×2 (07:49→21:02)
[2018-11-30] MEDS: ARFORMOTEROL TARTRATE 15MCG/2 ML AMP INH ×2 (07:49→21:01)
[2018-11-30] MEDS: GABAPENTIN 100 MG CAP PO ×3 (09:00→20:32)
[2018-11-30] MEDS: DORZOLAMIDE/TIMOLOL/PF 0.2 ML DROPERETTE BOTH EYES ×2 (09:00→20:32)
[2018-11-30] MEDS: FUROSEMIDE 20 MG TAB PO (09:10)
[2018-11-30] MEDS: FOLIC ACID 1 MG TAB PO (09:10)
[2018-11-30] MEDS: RIFAXIMIN 550 MG TAB PO ×2 (09:10→20:22)
[2018-11-30] MEDS: FAMOTIDINE 20 MG TAB PO ×2 (09:11→20:22)
[2018-11-30] MEDS: NA BICARBONATE 650 MG TAB PO ×3 (09:11→20:22)
[2018-11-30] MEDS: ASCORBIC ACID 500 MG TAB PO (09:12)
[2018-11-30] MEDS: METOPROLOL (XL) 50 MG TAB PO (09:12)
[2018-11-30] MEDS: BUSPIRONE 10 MG TAB PO ×2 (09:12→20:22)
[2018-11-30] MEDS: AMLODIPINE 5 MG TAB PO ×2 (09:12→20:23)
[2018-11-30] MEDS: THIAMINE 100 MG TAB PO (09:12)
[2018-11-30] MEDS: FERROUS SULFATE (EC) 325 MG TAB PO (09:13)
[2018-11-30] MEDS: ALLOPURINOL 100 MG TAB PO (09:13)
[2018-11-30] MEDS: NICOTINE (21 MG/24 HR) PATCH TRANSDERM (09:14)
[2018-11-30] MEDS: DOXYCYCLINE 100 MG TAB PO ×2 (09:20→20:22)
[2018-11-30] MEDS: LORAZEPAM 2 MG INJ IV ×3 (09:24→22:16)
[2018-11-30 09:43] LABS: ANISOCYTOSIS 2+ (0-0); BAND NEUTROPHILS #M 0.4 10^3/ul (0.0-0.6); BAND NEUTROPHILS % (M) 3 % (0-4); BURR CELLS 2+ (0-0); EOSINOPHILS % (M) 4 % (0-7); HYPOCHROMASIA 2+ (0-0); LYMPHOCYTES #M 0.4 10^3/ul (0.8-2.9); LYMPHOCYTES % (M) 3 % (15-51); METAMYELOCYTES #M 0.1 10^3/ul (0.0-0.0); METAMYELOCYTES %M 1 % (0-0); MICROCYTOSIS 1+ (0-0); MONOCYTE #M 3.1 10^3/ul (0.3-0.9); MONOCYTES % (M) 20 % (0-11); OVALOCYTES 1+ (0-0); PLATELET ESTIMATE NORMAL; PLATELET MORPHOLOGY COMMENT @See below; POIKILOCYTOSIS 3+ (0-0); POLYCHROMASIA 2+ (0-0); REACTIVE LYMPHOCYTES #M 0.1 10^3/ul (0.0-0.0); REACTIVE LYMPHOCYTES% (M) 1 % (0-0); SEG NEUT #M 10.6 10^3/ul (1.6-7.5); SEGMENTED NEUTROPHILS (M) % 68 % (39-77); SMUDGE%M 9 % (0-0)
[2018-11-30] MEDS: ERTAPENEM SODIUM 1 GM in SOD CHLORIDE 0.9% 100 ML IVPB (12:25)
[2018-11-30] MEDS: TAMSULOSIN (SR) 0.4 MG CAP PO (20:22)
[2018-11-30] MEDS: DOCUSATE SODIUM 100 MG CAP PO (20:22)
[2018-11-30] MEDS: METOPROLOL (XL) 25 MG TAB PO (20:23)
[2018-12-01] MEDS: HYDROmorphONE 1 MG/ML SYG IV ×3 (02:15→10:50)
[2018-12-01] MEDS: HYDROCODONE/APAP (10/325) TAB PO ×4 (03:30→23:22)
[2018-12-01] MEDS: LORAZEPAM 2 MG INJ IV ×3 (04:29→18:28)
[2018-12-01 06:06] LABS: ADD MAN DIFF? NO
[2018-12-01 06:27] LABS: WHITE BLOOD COUNT 17.1 10^3/ul (4.8-10.8)
[2018-12-01 06:27] LABS: ABNORMAL IP MESSAGE 1; BASOPHIL # 0.3 10^3/ul (0.0-0.1); BASOPHILS % 1.5 % (0.0-2.0); EOSINOPHILS # 0.9 10^3/ul (0.0-0.5); HEMATOCRIT 38.6 % (42.0-52.0); HEMOGLOBIN 10.7 g/dl (14.0-18.0); LYMPHOCYTES # 1.4 10^3/ul (0.8-2.9); LYMPHOCYTES % 8.4 % (15.0-51.0); MEAN CORPUSCULAR HEMOGLOBIN 21.1 pg (29.0-33.0); MEAN CORPUSCULAR HGB CONC 27.7 g/dl (32.0-37.0); MEAN CORPUSCULAR VOLUME 76.3 fl (82.0-101.0); MONOCYTE # 2.7 10^3/ul (0.3-0.9); MONOCYTES % 15.8 % (0.0-11.0); NEUTROPHIL # 11.1 10^3/ul (1.6-7.5); NEUTROPHILS % 64.9 % (39.0-77.0); PLATELET COUNT 323 10^3/UL (140-415); POSITIVE DIFF @See below; RED BLOOD COUNT 5.06 10^6/ul (4.70-6.10); RED CELL DISTRIBUTION WIDTH 22.9 % (11.5-14.5)
[2018-12-01] MEDS: LEVOTHYROXINE 75 MCG TAB PO (06:45)
[2018-12-01 07:13] LABS: ANION GAP 13 (5-13); BLOOD UREA NITROGEN 30 mg/dl (7-20); CALCIUM 8.7 mg/dl (8.4-10.2); CARBON DIOXIDE 19 mmol/L (21-31); CHLORIDE 110 mmol/L (97-110); CREATININE 1.45 mg/dl (0.61-1.24); Estimated GFR 49 mL/min (>60); GLUCOSE 106 mg/dl (70-220); POTASSIUM 5.3 mmol/L (3.5-5.1); SODIUM 142 mmol/L (135-144)
[2018-12-01] MEDS: BUDESONIDE (NEB) 0.5MG/2ML AMP INH ×2 (08:35→19:54)
[2018-12-01] MEDS: ARFORMOTEROL TARTRATE 15MCG/2 ML AMP INH ×2 (08:35→19:54)
[2018-12-01] MEDS: RIFAXIMIN 550 MG TAB PO ×2 (08:57→21:58)
[2018-12-01] MEDS: THIAMINE 100 MG TAB PO (08:57)
[2018-12-01] MEDS: BUSPIRONE 10 MG TAB PO ×2 (08:57→20:47)
[2018-12-01] MEDS: FERROUS SULFATE (EC) 325 MG TAB PO (08:57)
[2018-12-01] MEDS: FAMOTIDINE 20 MG TAB PO ×2 (08:57→20:47)
[2018-12-01] MEDS: DOXYCYCLINE 100 MG TAB PO ×2 (08:57→20:46)
[2018-12-01] MEDS: ALLOPURINOL 100 MG TAB PO (08:57)
[2018-12-01] MEDS: ASCORBIC ACID 500 MG TAB PO (08:57)
[2018-12-01] MEDS: FOLIC ACID 1 MG TAB PO (08:58)
[2018-12-01] MEDS: FUROSEMIDE 20 MG TAB PO (08:59)
[2018-12-01] MEDS: METOPROLOL (XL) 50 MG TAB PO (08:59)
[2018-12-01] MEDS: AMLODIPINE 5 MG TAB PO ×2 (08:59→20:47)
[2018-12-01] MEDS: NA BICARBONATE 650 MG TAB PO ×3 (08:59→20:47)
[2018-12-01] MEDS: GABAPENTIN 100 MG CAP PO ×3 (09:00→20:54)
[2018-12-01] MEDS: LACTULOSE 30ML CUP PO ×3 (09:00→20:46)
[2018-12-01] MEDS: NICOTINE (21 MG/24 HR) PATCH TRANSDERM (09:00)
[2018-12-01] MEDS: DORZOLAMIDE/TIMOLOL/PF 0.2 ML DROPERETTE BOTH EYES ×2 (09:00→20:48)
[2018-12-01] MEDS: ERTAPENEM SODIUM 1 GM in SOD CHLORIDE 0.9% 100 ML IVPB (13:47)
[2018-12-01] MEDS: HYDROmorphONE 2 MG/ML SYG IV ×2 (14:51→20:43)
[2018-12-01] MEDS: EPOETIN ALFA-EPBX (NON-ESRD 10,000 UNIT/ML VIAL SC (18:32)
[2018-12-01] MEDS: DOCUSATE SODIUM 100 MG CAP PO (20:46)
[2018-12-01] MEDS: METOPROLOL (XL) 25 MG TAB PO (20:46)
[2018-12-01] MEDS: TAMSULOSIN (SR) 0.4 MG CAP PO (20:47)
[2018-12-02] MEDS: HYDROmorphONE 2 MG/ML SYG IV ×5 (00:54→20:48)
[2018-12-02] MEDS: LORAZEPAM 2 MG INJ IV ×4 (03:22→22:05)
[2018-12-02 06:04] LABS: ADD MAN DIFF? NO
[2018-12-02 06:09] LABS: WHITE BLOOD COUNT 18.2 10^3/ul (4.8-10.8)
[2018-12-02 06:09] LABS: ABNORMAL IP MESSAGE 1; BASOPHIL # 0.2 10^3/ul (0.0-0.1); BASOPHILS % 1.3 % (0.0-2.0); EOSINOPHILS # 0.7 10^3/ul (0.0-0.5); EOSINOPHILS % 4.1 % (0.0-7.0); HEMATOCRIT 37.5 % (42.0-52.0); HEMOGLOBIN 10.4 g/dl (14.0-18.0); LYMPHOCYTES # 1.5 10^3/ul (0.8-2.9); MEAN CORPUSCULAR HEMOGLOBIN 20.8 pg (29.0-33.0); MEAN CORPUSCULAR HGB CONC 27.7 g/dl (32.0-37.0); MONOCYTE # 3.6 10^3/ul (0.3-0.9); MONOCYTES % 19.5 % (0.0-11.0); NEUTROPHIL # 11.5 10^3/ul (1.6-7.5); NEUTROPHILS % 63.4 % (39.0-77.0); NUCLEATED RED BLOOD CELLS% 0.2 /100WBC (0.0-0.0); PLATELET COUNT 290 10^3/UL (140-415); POSITIVE DIFF @See below; RED CELL DISTRIBUTION WIDTH 23.4 % (11.5-14.5)
[2018-12-02] MEDS: LEVOTHYROXINE 75 MCG TAB PO (06:12)
[2018-12-02 06:38] LABS: ANION GAP 8 (5-13); BLOOD UREA NITROGEN 34 mg/dl (7-20); CALCIUM 9.3 mg/dl (8.4-10.2); CARBON DIOXIDE 19 mmol/L (21-31); CHLORIDE 113 mmol/L (97-110); CREATININE 1.48 mg/dl (0.61-1.24); Estimated GFR 48 mL/min (>60); GLUCOSE 85 mg/dl (70-220); POTASSIUM 5.7 mmol/L (3.5-5.1); SODIUM 140 mmol/L (135-144)
[2018-12-02] MEDS: ARFORMOTEROL TARTRATE 15MCG/2 ML AMP INH ×2 (07:50→20:00)
[2018-12-02] MEDS: BUDESONIDE (NEB) 0.5MG/2ML AMP INH ×2 (07:50→20:00)
[2018-12-02] MEDS: HYDROCODONE/APAP (10/325) TAB PO ×2 (07:55→14:07)
[2018-12-02] MEDS: DOXYCYCLINE 100 MG TAB PO ×2 (08:54→20:08)
[2018-12-02] MEDS: BUSPIRONE 10 MG TAB PO ×2 (08:55→20:11)
[2018-12-02] MEDS: NICOTINE (21 MG/24 HR) PATCH TRANSDERM (08:56)
[2018-12-02] MEDS: FUROSEMIDE 20 MG TAB PO (08:57)
[2018-12-02] MEDS: METOPROLOL (XL) 50 MG TAB PO (08:57)
[2018-12-02] MEDS: RIFAXIMIN 550 MG TAB PO ×2 (08:57→20:12)
[2018-12-02] MEDS: GABAPENTIN 100 MG CAP PO ×3 (08:58→20:11)
[2018-12-02] MEDS: AMLODIPINE 5 MG TAB PO ×2 (08:58→20:11)
[2018-12-02] MEDS: ASCORBIC ACID 500 MG TAB PO (08:58)
[2018-12-02] MEDS: FOLIC ACID 1 MG TAB PO (08:59)
[2018-12-02] MEDS: FERROUS SULFATE (EC) 325 MG TAB PO (08:59)
[2018-12-02] MEDS: FAMOTIDINE 20 MG TAB PO ×2 (08:59→20:10)
[2018-12-02] MEDS: THIAMINE 100 MG TAB PO (08:59)
[2018-12-02] MEDS: ALLOPURINOL 100 MG TAB PO (08:59)
[2018-12-02] MEDS: DORZOLAMIDE/TIMOLOL/PF 0.2 ML DROPERETTE LEFT EYE ×3 (08:59→20:56)
[2018-12-02] MEDS: LUBIPROSTONE 24 MCG CAP PO ×2 (09:00→20:11)
[2018-12-02] MEDS: NA BICARBONATE 650 MG TAB PO ×3 (09:01→20:10)
[2018-12-02] MEDS: LACTULOSE 30ML CUP PO ×2 (09:03→20:11)
[2018-12-02] MEDS: BISACODYL (EC) 5 MG TAB PO ×2 (16:44→20:08)
[2018-12-02] MEDS: PEG/ELECTROLYTES 4L BTL PO ×2 (16:46→20:08)
[2018-12-02] MEDS: METOPROLOL (XL) 25 MG TAB PO (20:10)
[2018-12-02] MEDS: DOCUSATE SODIUM 100 MG CAP PO (20:10)
[2018-12-02] MEDS: TAMSULOSIN (SR) 0.4 MG CAP PO (20:11)
[2018-12-02] MEDS: ONDANSETRON 4 MG INJ IV (20:54)
[2018-12-03] MEDS: HYDROmorphONE 2 MG/ML SYG IV ×5 (02:32→21:37)
[2018-12-03] MEDS: LEVOTHYROXINE 75 MCG TAB PO (05:08)
[2018-12-03] MEDS: BUDESONIDE (NEB) 0.5MG/2ML AMP INH ×2 (08:00→20:16)
[2018-12-03] MEDS: DOXYCYCLINE 100 MG TAB PO ×2 (08:00→21:24)
[2018-12-03] MEDS: ARFORMOTEROL TARTRATE 15MCG/2 ML AMP INH ×2 (08:47→20:16)
[2018-12-03] MEDS: DORZOLAMIDE/TIMOLOL/PF 0.2 ML DROPERETTE LEFT EYE ×3 (09:00→21:24)
[2018-12-03] MEDS: METOPROLOL (XL) 50 MG TAB PO (09:00)
[2018-12-03] MEDS: FUROSEMIDE 20 MG TAB PO (09:00)
[2018-12-03] MEDS: FOLIC ACID 1 MG TAB PO (09:00)
[2018-12-03] MEDS: LACTULOSE 30ML CUP PO ×2 (09:00→21:21)
[2018-12-03] MEDS: THIAMINE 100 MG TAB PO (09:00)
[2018-12-03] MEDS: FERROUS SULFATE (EC) 325 MG TAB PO (09:00)
[2018-12-03] MEDS: AMLODIPINE 5 MG TAB PO ×2 (09:00→21:24)
[2018-12-03] MEDS: BUSPIRONE 10 MG TAB PO ×2 (09:00→21:23)
[2018-12-03] MEDS: GABAPENTIN 100 MG CAP PO ×3 (09:00→21:23)
[2018-12-03] MEDS: POLYETHYLENE GLYCOL 17 GM PACKET PO (09:00)
[2018-12-03] MEDS: LUBIPROSTONE 24 MCG CAP PO ×2 (09:00→21:23)
[2018-12-03] MEDS: FAMOTIDINE 20 MG TAB PO ×2 (09:00→21:23)
[2018-12-03] MEDS: ASCORBIC ACID 500 MG TAB PO (09:00)
[2018-12-03] MEDS: RIFAXIMIN 550 MG TAB PO ×2 (09:00→21:23)
[2018-12-03] MEDS: LORAZEPAM 2 MG INJ IV ×2 (10:09→19:39)
[2018-12-03] MEDS: NICOTINE (21 MG/24 HR) PATCH TRANSDERM (10:12)
[2018-12-03 10:33] LABS: ADD MAN DIFF? NO
[2018-12-03 10:37] LABS: WHITE BLOOD COUNT 18.7 10^3/ul (4.8-10.8)
[2018-12-03 10:37] LABS: ABNORMAL IP MESSAGE 1; BASOPHIL # 0.2 10^3/ul (0.0-0.1); BASOPHILS % 1.3 % (0.0-2.0); EOSINOPHILS # 0.7 10^3/ul (0.0-0.5); EOSINOPHILS % 3.9 % (0.0-7.0); HEMATOCRIT 38.9 % (42.0-52.0); HEMOGLOBIN 10.8 g/dl (14.0-18.0); LYMPHOCYTES # 1.5 10^3/ul (0.8-2.9); LYMPHOCYTES % 8.1 % (15.0-51.0); MEAN CORPUSCULAR HEMOGLOBIN 20.9 pg (29.0-33.0); MEAN CORPUSCULAR HGB CONC 27.8 g/dl (32.0-37.0); MEAN CORPUSCULAR VOLUME 75.2 fl (82.0-101.0); MONOCYTE # 3.5 10^3/ul (0.3-0.9); MONOCYTES % 18.8 % (0.0-11.0); NEUTROPHIL # 12.1 10^3/ul (1.6-7.5); NEUTROPHILS % 64.5 % (39.0-77.0); NUCLEATED RED BLOOD CELLS% 0.2 /100WBC (0.0-0.0); PLATELET COUNT 324 10^3/UL (140-415); POSITIVE DIFF @See below; RED BLOOD COUNT 5.17 10^6/ul (4.70-6.10); RED CELL DISTRIBUTION WIDTH 22.6 % (11.5-14.5)
[2018-12-03 10:55] LABS: INR 1.27; PT RATIO 1.3
[2018-12-03 10:56] LABS: PARTIAL THROMBOPLASTIN TIME 37.2 Sec (23.0-35.0)
[2018-12-03 10:57] LABS: ANION GAP 10 (5-13); BLOOD UREA NITROGEN 36 mg/dl (7-20); CALCIUM 9.2 mg/dl (8.4-10.2); CARBON DIOXIDE 14 mmol/L (21-31); CHLORIDE 117 mmol/L (97-110); CREATININE 1.58 mg/dl (0.61-1.24); Estimated GFR 45 mL/min (>60); GLUCOSE 67 mg/dl (70-220); POTASSIUM 5.7 mmol/L (3.5-5.1); SODIUM 141 mmol/L (135-144)
[2018-12-03] MEDS ORDERED: NA POLYST SULFON 15 GM/60 ML BTL PO (11:30)
[2018-12-03] MEDS: ALLOPURINOL 100 MG TAB PO (11:36)
[2018-12-03] MEDS: SODIUM POLYSTYRENE 15 GM KIT (POWDER + SORBITOL) PO (12:09)
[2018-12-03] MEDS: HYDROCODONE/APAP (10/325) TAB PO (18:05)
[2018-12-03] MEDS: DOCUSATE SODIUM 100 MG CAP PO (21:22)
[2018-12-03] MEDS: NA BICARBONATE 650 MG TAB PO (21:23)
[2018-12-03] MEDS: METOPROLOL (XL) 25 MG TAB PO (21:23)
[2018-12-03] MEDS: TAMSULOSIN (SR) 0.4 MG CAP PO (21:24)
[2018-12-04] MEDS: HYDROmorphONE 2 MG/ML SYG IV ×6 (01:37→22:14)
[2018-12-04] MEDS: ONDANSETRON 4 MG INJ IV (01:43)
[2018-12-04] MEDS: LEVOTHYROXINE 75 MCG TAB PO (05:32)
[2018-12-04 05:56] LABS: ADD MAN DIFF? NO
[2018-12-04 06:08] LABS: ABNORMAL IP MESSAGE 1; BASOPHIL # 0.2 10^3/ul (0.0-0.1); BASOPHILS % 1.1 % (0.0-2.0); EOSINOPHILS # 0.7 10^3/ul (0.0-0.5); EOSINOPHILS % 3.8 % (0.0-7.0); HEMATOCRIT 38.7 % (42.0-52.0); HEMOGLOBIN 10.9 g/dl (14.0-18.0); LYMPHOCYTES # 1.6 10^3/ul (0.8-2.9); LYMPHOCYTES % 8.7 % (15.0-51.0); MEAN CORPUSCULAR HEMOGLOBIN 21.2 pg (29.0-33.0); MEAN CORPUSCULAR HGB CONC 28.2 g/dl (32.0-37.0); MEAN CORPUSCULAR VOLUME 75.1 fl (82.0-101.0); MONOCYTE # 3.2 10^3/ul (0.3-0.9); MONOCYTES % 17.8 % (0.0-11.0); NEUTROPHIL # 11.7 10^3/ul (1.6-7.5); NEUTROPHILS % 64.9 % (39.0-77.0); NUCLEATED RED BLOOD CELLS% 0.2 /100WBC (0.0-0.0); PLATELET COUNT 315 10^3/UL (140-415); POSITIVE DIFF @See below; RED BLOOD COUNT 5.15 10^6/ul (4.70-6.10); RED CELL DISTRIBUTION WIDTH 22.7 % (11.5-14.5)
[2018-12-04 06:48] LABS: ANION GAP 10 (5-13); BLOOD UREA NITROGEN 33 mg/dl (7-20); CALCIUM 9.1 mg/dl (8.4-10.2); CARBON DIOXIDE 16 mmol/L (21-31); CHLORIDE 117 mmol/L (97-110); CREATININE 1.51 mg/dl (0.61-1.24); Estimated GFR 47 mL/min (>60); GLUCOSE 76 mg/dl (70-220); POTASSIUM 4.8 mmol/L (3.5-5.1); SODIUM 143 mmol/L (135-144)
[2018-12-04] MEDS: DOXYCYCLINE 100 MG TAB PO (08:00)
[2018-12-04] MEDS: NA BICARBONATE 650 MG TAB PO ×2 (09:00→20:13)
[2018-12-04] MEDS: LACTULOSE 30ML CUP PO ×2 (09:00→20:13)
[2018-12-04] MEDS: ALLOPURINOL 100 MG TAB PO (09:00)
[2018-12-04] MEDS: POLYETHYLENE GLYCOL 17 GM PACKET PO (09:00)
[2018-12-04] MEDS: THIAMINE 100 MG TAB PO (09:00)
[2018-12-04] MEDS: FOLIC ACID 1 MG TAB PO (09:00)
[2018-12-04] MEDS: LUBIPROSTONE 24 MCG CAP PO ×2 (09:00→20:13)
[2018-12-04] MEDS: METOPROLOL (XL) 50 MG TAB PO (09:00)
[2018-12-04] MEDS: FUROSEMIDE 20 MG TAB PO (09:00)
[2018-12-04] MEDS: DORZOLAMIDE/TIMOLOL/PF 0.2 ML DROPERETTE LEFT EYE ×2 (09:00→20:37)
[2018-12-04] MEDS: FAMOTIDINE 20 MG TAB PO ×2 (09:00→20:13)
[2018-12-04] MEDS: AMLODIPINE 5 MG TAB PO ×2 (09:00→20:18)
[2018-12-04] MEDS: FERROUS SULFATE (EC) 325 MG TAB PO (09:00)
[2018-12-04] MEDS: BUSPIRONE 10 MG TAB PO ×2 (09:00→20:13)
[2018-12-04] MEDS: GABAPENTIN 100 MG CAP PO ×3 (09:00→20:12)
[2018-12-04] MEDS: BUDESONIDE (NEB) 0.5MG/2ML AMP INH ×2 (09:04→20:48)
[2018-12-04] MEDS: ARFORMOTEROL TARTRATE 15MCG/2 ML AMP INH ×2 (09:04→20:48)
[2018-12-04] MEDS: NICOTINE (21 MG/24 HR) PATCH TRANSDERM (09:55)
[2018-12-04] MEDS: ASCORBIC ACID 500 MG TAB PO (10:00)
[2018-12-04] MEDS: RIFAXIMIN 550 MG TAB PO ×2 (10:00→20:13)
[2018-12-04] MEDS: PROPOFOL 40 ML (12:08)
[2018-12-04] MEDS ORDERED: ONDANSETRON 4 MG INJ IV (12:30)
[2018-12-04] MEDS: LORAZEPAM 2 MG INJ IV ×2 (15:03→21:16)
[2018-12-04] MEDS: ARTIFICIAL TEARS 15 ML OPH BOTH EYES (15:23)
[2018-12-04] MEDS: HYDROCODONE/APAP (10/325) TAB PO ×2 (16:08→20:05)
[2018-12-04] MEDS: ZYVOX 600 MG TAB PO ×2 (18:33→20:09)
[2018-12-04] MEDS: DOCUSATE SODIUM 100 MG CAP PO (20:12)
[2018-12-04] MEDS: TAMSULOSIN (SR) 0.4 MG CAP PO (20:12)
[2018-12-04] MEDS: METOPROLOL (XL) 25 MG TAB PO (20:13)
[2018-12-05] MEDS: HYDROmorphONE 2 MG/ML SYG IV ×6 (02:09→23:38)
[2018-12-05] MEDS: LORAZEPAM 2 MG INJ IV ×3 (03:58→18:13)
[2018-12-05] MEDS: LEVOTHYROXINE 75 MCG TAB PO (06:28)
[2018-12-05] MEDS: ARFORMOTEROL TARTRATE 15MCG/2 ML AMP INH ×2 (08:08→19:19)
[2018-12-05] MEDS: BUDESONIDE (NEB) 0.5MG/2ML AMP INH ×2 (08:10→19:20)
[2018-12-05] MEDS: DORZOLAMIDE/TIMOLOL/PF 0.2 ML DROPERETTE LEFT EYE ×2 (09:00→20:53)
[2018-12-05] MEDS: HYDROCODONE/APAP (10/325) TAB PO ×4 (09:25→20:56)
[2018-12-05] MEDS: FAMOTIDINE 20 MG TAB PO ×2 (10:46→20:45)
[2018-12-05] MEDS: AMLODIPINE 5 MG TAB PO ×2 (10:46→20:45)
[2018-12-05] MEDS: THIAMINE 100 MG TAB PO (10:46)
[2018-12-05] MEDS: RIFAXIMIN 550 MG TAB PO ×2 (10:49→20:45)
[2018-12-05] MEDS: LUBIPROSTONE 24 MCG CAP PO ×2 (10:50→20:50)
[2018-12-05] MEDS: FOLIC ACID 1 MG TAB PO (10:50)
[2018-12-05] MEDS: CITRIC ACID/NA CITRATE 30 ML CUP PO ×4 (10:50→20:43)
[2018-12-05] MEDS: LACTULOSE 30ML CUP PO ×2 (10:50→20:43)
[2018-12-05] MEDS: FUROSEMIDE 20 MG TAB PO (10:50)
[2018-12-05] MEDS: GABAPENTIN 100 MG CAP PO ×3 (10:51→20:45)
[2018-12-05] MEDS: METOPROLOL (XL) 50 MG TAB PO (10:51)
[2018-12-05] MEDS: ALLOPURINOL 100 MG TAB PO (10:51)
[2018-12-05] MEDS: ZYVOX 600 MG TAB PO ×2 (10:51→20:45)
[2018-12-05] MEDS: ASCORBIC ACID 500 MG TAB PO (10:51)
[2018-12-05] MEDS: BUSPIRONE 10 MG TAB PO ×2 (10:51→20:45)
[2018-12-05] MEDS: FERROUS SULFATE (EC) 325 MG TAB PO (10:51)
[2018-12-05] MEDS: NICOTINE (21 MG/24 HR) PATCH TRANSDERM (10:52)
[2018-12-05] MEDS: POLYETHYLENE GLYCOL 17 GM PACKET PO (11:08)
[2018-12-05] MEDS: LIDOCAINE 2% (SDV) 5 ML INJ (19:32)
[2018-12-05] MEDS: METOPROLOL (XL) 25 MG TAB PO (20:44)
[2018-12-05] MEDS: TAMSULOSIN (SR) 0.4 MG CAP PO (20:45)
[2018-12-05] MEDS: DOCUSATE SODIUM 100 MG CAP PO (20:49)
[2018-12-06] MEDS: LORAZEPAM 2 MG INJ IV ×3 (01:14→15:04)
[2018-12-06] MEDS: HYDROmorphONE 2 MG/ML SYG IV ×5 (03:54→23:47)
[2018-12-06] MEDS: LEVOTHYROXINE 75 MCG TAB PO (05:35)
[2018-12-06] MEDS: HYDROCODONE/APAP (10/325) TAB PO (05:35)
[2018-12-06 07:38] LABS: ADD MAN DIFF? NO
[2018-12-06 07:45] LABS: WHITE BLOOD COUNT 14.9 10^3/ul (4.8-10.8)
[2018-12-06 07:45] LABS: ABNORMAL IP MESSAGE 1; BASOPHIL # 0.2 10^3/ul (0.0-0.1); BASOPHILS % 1.1 % (0.0-2.0); HEMATOCRIT 40.8 % (42.0-52.0); HEMOGLOBIN 11.1 g/dl (14.0-18.0); LYMPHOCYTES # 1.4 10^3/ul (0.8-2.9); LYMPHOCYTES % 9.6 % (15.0-51.0); MEAN CORPUSCULAR HEMOGLOBIN 20.7 pg (29.0-33.0); MEAN CORPUSCULAR HGB CONC 27.2 g/dl (32.0-37.0); MEAN CORPUSCULAR VOLUME 76.3 fl (82.0-101.0); MONOCYTE # 3.1 10^3/ul (0.3-0.9); MONOCYTES % 20.9 % (0.0-11.0); NEUTROPHIL # 8.7 10^3/ul (1.6-7.5); NEUTROPHILS % 58.6 % (39.0-77.0); NUCLEATED RED BLOOD CELLS% 0.1 /100WBC (0.0-0.0); PLATELET COUNT 263 10^3/UL (140-415); POSITIVE DIFF @See below; RED BLOOD COUNT 5.35 10^6/ul (4.70-6.10); RED CELL DISTRIBUTION WIDTH 22.4 % (11.5-14.5)
[2018-12-06 08:00] LABS: AMMONIA 21 umol/l (9-30)
[2018-12-06 08:09] LABS: ANION GAP 11 (5-13); BLOOD UREA NITROGEN 40 mg/dl (7-20); CALCIUM 8.8 mg/dl (8.4-10.2); CARBON DIOXIDE 19 mmol/L (21-31); CHLORIDE 112 mmol/L (97-110); CREATININE 1.67 mg/dl (0.61-1.24); Estimated GFR 42 mL/min (>60); GLUCOSE 70 mg/dl (70-220); POTASSIUM 5.7 mmol/L (3.5-5.1); SODIUM 142 mmol/L (135-144)
[2018-12-06] MEDS: ARFORMOTEROL TARTRATE 15MCG/2 ML AMP INH ×2 (08:27→21:06)
[2018-12-06] MEDS: BUDESONIDE (NEB) 0.5MG/2ML AMP INH ×2 (08:27→21:06)
[2018-12-06] MEDS: DORZOLAMIDE/TIMOLOL/PF 0.2 ML DROPERETTE LEFT EYE ×2 (09:00→20:47)
[2018-12-06] MEDS: CITRIC ACID/NA CITRATE 30 ML CUP PO ×4 (09:09→20:25)
[2018-12-06] MEDS: ASCORBIC ACID 500 MG TAB PO (09:09)
[2018-12-06] MEDS: RIFAXIMIN 550 MG TAB PO ×2 (09:09→20:24)
[2018-12-06] MEDS: FERROUS SULFATE (EC) 325 MG TAB PO (09:09)
[2018-12-06] MEDS: LACTULOSE 30ML CUP PO ×2 (09:09→20:23)
[2018-12-06] MEDS: FOLIC ACID 1 MG TAB PO (09:09)
[2018-12-06] MEDS: NICOTINE (21 MG/24 HR) PATCH TRANSDERM (09:09)
[2018-12-06] MEDS: LUBIPROSTONE 24 MCG CAP PO ×2 (09:09→20:27)
[2018-12-06] MEDS: ALLOPURINOL 100 MG TAB PO (09:10)
[2018-12-06] MEDS: BUSPIRONE 10 MG TAB PO ×2 (09:10→20:25)
[2018-12-06] MEDS: THIAMINE 100 MG TAB PO (09:10)
[2018-12-06] MEDS: ZYVOX 600 MG TAB PO ×2 (09:10→20:24)
[2018-12-06] MEDS: METOPROLOL (XL) 50 MG TAB PO (09:11)
[2018-12-06] MEDS: FAMOTIDINE 20 MG TAB PO ×2 (09:11→20:25)
[2018-12-06] MEDS: GABAPENTIN 100 MG CAP PO ×3 (09:11→20:23)
[2018-12-06] MEDS: FUROSEMIDE 20 MG TAB PO (09:11)
[2018-12-06] MEDS: AMLODIPINE 5 MG TAB PO ×2 (09:12→20:25)
[2018-12-06] MEDS: SODIUM POLYSTYRENE 15 GM KIT (POWDER + SORBITOL) PO (13:48)
[2018-12-06] MEDS: DOCUSATE SODIUM 100 MG CAP PO (20:23)
[2018-12-06] MEDS: TAMSULOSIN (SR) 0.4 MG CAP PO (20:23)
[2018-12-06] MEDS: METOPROLOL (XL) 25 MG TAB PO (20:24)
[2018-12-06] MEDS: oxyCODONE 5 MG TAB PO (20:44)
[2018-12-07] MEDS: LORAZEPAM 2 MG INJ IV ×3 (00:48→20:17)
[2018-12-07] MEDS: oxyCODONE 5 MG TAB PO ×5 (02:17→22:43)
[2018-12-07] MEDS: HYDROmorphONE 2 MG/ML SYG IV ×5 (04:52→21:20)
[2018-12-07 06:25] LABS: ABNORMAL IP MESSAGE 1; HEMATOCRIT 39.5 % (42.0-52.0); HEMOGLOBIN 10.9 g/dl (14.0-18.0); MEAN CORPUSCULAR HEMOGLOBIN 20.6 pg (29.0-33.0); MEAN CORPUSCULAR HGB CONC 27.6 g/dl (32.0-37.0); MEAN CORPUSCULAR VOLUME 74.7 fl (82.0-101.0); NUCLEATED RED BLOOD CELLS% 0.2 /100WBC (0.0-0.0); PLATELET COUNT 230 10^3/UL (140-415); POSITIVE DIFF @See below; RED BLOOD COUNT 5.29 10^6/ul (4.70-6.10); RED CELL DISTRIBUTION WIDTH 22.7 % (11.5-14.5)
[2018-12-07 06:25] LABS: WHITE BLOOD COUNT 13.9 10^3/ul (4.8-10.8)
[2018-12-07] MEDS: LEVOTHYROXINE 75 MCG TAB PO (06:52)
[2018-12-07 06:58] LABS: ANION GAP 12 (5-13); BLOOD UREA NITROGEN 38 mg/dl (7-20); CALCIUM 8.9 mg/dl (8.4-10.2); CARBON DIOXIDE 16 mmol/L (21-31); CHLORIDE 115 mmol/L (97-110); CREATININE 1.72 mg/dl (0.61-1.24); Estimated GFR 41 mL/min (>60); GLUCOSE 78 mg/dl (70-220); POTASSIUM 4.9 mmol/L (3.5-5.1); SODIUM 143 mmol/L (135-144)
[2018-12-07 07:14] LABS: ADD MAN DIFF? YES
[2018-12-07] MEDS: BUDESONIDE (NEB) 0.5MG/2ML AMP INH ×2 (08:00→20:05)
[2018-12-07] MEDS: LUBIPROSTONE 24 MCG CAP PO ×2 (08:11→20:20)
[2018-12-07] MEDS: ZYVOX 600 MG TAB PO ×2 (08:12→20:23)
[2018-12-07] MEDS: FERROUS SULFATE (EC) 325 MG TAB PO (08:12)
[2018-12-07] MEDS: THIAMINE 100 MG TAB PO (08:13)
[2018-12-07] MEDS: BUSPIRONE 10 MG TAB PO ×2 (08:13→20:21)
[2018-12-07] MEDS: FOLIC ACID 1 MG TAB PO (08:13)
[2018-12-07] MEDS: FAMOTIDINE 20 MG TAB PO ×2 (08:13→20:21)
[2018-12-07] MEDS: ASCORBIC ACID 500 MG TAB PO (08:14)
[2018-12-07] MEDS: ALLOPURINOL 100 MG TAB PO (08:14)
[2018-12-07] MEDS: RIFAXIMIN 550 MG TAB PO ×2 (08:15→20:21)
[2018-12-07] MEDS: GABAPENTIN 100 MG CAP PO ×3 (08:16→20:29)
[2018-12-07] MEDS: FUROSEMIDE 20 MG TAB PO (08:16)
[2018-12-07] MEDS: ARFORMOTEROL TARTRATE 15MCG/2 ML AMP INH ×2 (08:17→20:05)
[2018-12-07] MEDS: METOPROLOL (XL) 50 MG TAB PO (08:17)
[2018-12-07] MEDS: AMLODIPINE 5 MG TAB PO ×2 (08:17→20:23)
[2018-12-07] MEDS: CITRIC ACID/NA CITRATE 30 ML CUP PO ×3 (08:18→20:22)
[2018-12-07] MEDS: DORZOLAMIDE/TIMOLOL/PF 0.2 ML DROPERETTE LEFT EYE ×2 (08:18→20:26)
[2018-12-07] MEDS: LACTULOSE 30ML CUP PO ×2 (08:20→20:22)
[2018-12-07] MEDS: NICOTINE (21 MG/24 HR) PATCH TRANSDERM (08:27)
[2018-12-07 10:28] LABS: ANISOCYTOSIS 2+ (0-0); BAND NEUTROPHILS #M 0.2 10^3/ul (0.0-0.6); BAND NEUTROPHILS % (M) 2 % (0-4); BASOPHIL #M 0.1 10^3/ul (0.0-0.0); BASOPHILS % (M) 1 % (0-2); BURR CELLS 2+ (0-0); EOSINOPHILS % (M) 7 % (0-7); ERYTHROBLAST% (NRBC) (M) 1 % (0-0); GIANT THROMBO% (M) 40 % (0-0); LYMPHOCYTES #M 1.3 10^3/ul (0.8-2.9); LYMPHOCYTES % (M) 10 % (15-51); METAMYELOCYTES #M 0.1 10^3/ul (0.0-0.0); METAMYELOCYTES %M 1 % (0-0); MICROCYTOSIS 1+ (0-0); MONOCYTE #M 2.5 10^3/ul (0.3-0.9); MONOCYTES % (M) 18 % (0-11); MYELOCYTES #M 0.1 10^3/ul (0.0-0.0); MYELOCYTES % (M) 1 % (0-0); OVALOCYTES 1+ (0-0); PLATELET ESTIMATE NORMAL; POIKILOCYTOSIS 3+ (0-0); POLYCHROMASIA 3+ (0-0); REACTIVE LYMPHOCYTES #M 0.4 10^3/ul (0.0-0.0); REACTIVE LYMPHOCYTES% (M) 3 % (0-0); SEGMENTED NEUTROPHILS (M) % 57 % (39-77); SMUDGE%M 4 % (0-0)
[2018-12-07] MEDS: DOCUSATE SODIUM 100 MG CAP PO (20:21)
[2018-12-07] MEDS: TAMSULOSIN (SR) 0.4 MG CAP PO (20:21)
[2018-12-07] MEDS: METOPROLOL (XL) 25 MG TAB PO (20:24)
[2018-12-08] MEDS: HYDROmorphONE 2 MG/ML SYG IV ×6 (01:31→23:56)
[2018-12-08] MEDS: LORAZEPAM 2 MG INJ IV ×4 (02:41→22:20)
[2018-12-08] MEDS: oxyCODONE 5 MG TAB PO ×4 (03:44→17:19)
[2018-12-08] MEDS: LEVOTHYROXINE 75 MCG TAB PO (06:57)
[2018-12-08 07:20] LABS: ADD MAN DIFF? NO
[2018-12-08 07:21] LABS: WHITE BLOOD COUNT 12.3 10^3/ul (4.8-10.8)
[2018-12-08 07:21] LABS: ABNORMAL IP MESSAGE 1; BASOPHIL # 0.1 10^3/ul (0.0-0.1); BASOPHILS % 0.8 % (0.0-2.0); EOSINOPHILS % 7.9 % (0.0-7.0); HEMATOCRIT 37.6 % (42.0-52.0); HEMOGLOBIN 10.3 g/dl (14.0-18.0); LYMPHOCYTES # 1.2 10^3/ul (0.8-2.9); LYMPHOCYTES % 9.7 % (15.0-51.0); MEAN CORPUSCULAR HEMOGLOBIN 20.6 pg (29.0-33.0); MEAN CORPUSCULAR HGB CONC 27.4 g/dl (32.0-37.0); MEAN CORPUSCULAR VOLUME 75.4 fl (82.0-101.0); MONOCYTE # 3.1 10^3/ul (0.3-0.9); MONOCYTES % 25.4 % (0.0-11.0); NEUTROPHIL # 6.7 10^3/ul (1.6-7.5); NEUTROPHILS % 54.7 % (39.0-77.0); PLATELET COUNT 193 10^3/UL (140-415); POSITIVE DIFF @See below; RED BLOOD COUNT 4.99 10^6/ul (4.70-6.10); RED CELL DISTRIBUTION WIDTH 21.7 % (11.5-14.5)
[2018-12-08 07:45] LABS: ANION GAP 12 (5-13); BLOOD UREA NITROGEN 34 mg/dl (7-20); CALCIUM 8.8 mg/dl (8.4-10.2); CARBON DIOXIDE 14 mmol/L (21-31); CHLORIDE 115 mmol/L (97-110); CREATININE 1.63 mg/dl (0.61-1.24); Estimated GFR 43 mL/min (>60); GLUCOSE 77 mg/dl (70-220); POTASSIUM 4.7 mmol/L (3.5-5.1); SODIUM 141 mmol/L (135-144)
[2018-12-08] MEDS: ASCORBIC ACID 500 MG TAB PO (08:21)
[2018-12-08] MEDS: RIFAXIMIN 550 MG TAB PO ×2 (08:21→22:09)
[2018-12-08] MEDS: FUROSEMIDE 20 MG TAB PO (08:23)
[2018-12-08] MEDS: AMLODIPINE 5 MG TAB PO ×2 (08:23→22:13)
[2018-12-08] MEDS: THIAMINE 100 MG TAB PO (08:23)
[2018-12-08] MEDS: ALLOPURINOL 100 MG TAB PO (08:24)
[2018-12-08] MEDS: ZYVOX 600 MG TAB PO ×2 (08:24→22:08)
[2018-12-08] MEDS: BUSPIRONE 10 MG TAB PO ×2 (08:24→22:09)
[2018-12-08] MEDS: CITRIC ACID/NA CITRATE 30 ML CUP PO ×3 (08:24→22:09)
[2018-12-08] MEDS: LACTULOSE 30ML CUP PO (08:24)
[2018-12-08] MEDS: FERROUS SULFATE (EC) 325 MG TAB PO (08:24)
[2018-12-08] MEDS: NICOTINE (21 MG/24 HR) PATCH TRANSDERM (08:24)
[2018-12-08] MEDS: FAMOTIDINE 20 MG TAB PO ×2 (08:24→22:09)
[2018-12-08] MEDS: FOLIC ACID 1 MG TAB PO (08:25)
[2018-12-08] MEDS: GABAPENTIN 100 MG CAP PO ×3 (08:25→21:00)
[2018-12-08] MEDS: METOPROLOL (XL) 50 MG TAB PO (08:25)
[2018-12-08] MEDS: LUBIPROSTONE 24 MCG CAP PO ×2 (08:25→22:09)
[2018-12-08] MEDS: DORZOLAMIDE/TIMOLOL/PF 0.2 ML DROPERETTE LEFT EYE ×2 (08:26→21:00)
[2018-12-08] MEDS: ARFORMOTEROL TARTRATE 15MCG/2 ML AMP INH ×2 (08:39→21:45)
[2018-12-08] MEDS: BUDESONIDE (NEB) 0.5MG/2ML AMP INH ×2 (08:39→21:45)
[2018-12-08] MEDS: DOCUSATE SODIUM 100 MG CAP PO (22:08)
[2018-12-08] MEDS: TAMSULOSIN (SR) 0.4 MG CAP PO (22:09)
[2018-12-08] MEDS: METOPROLOL (XL) 25 MG TAB PO (22:14)
[2018-12-08] MEDS: ARTIFICIAL TEARS 15 ML OPH BOTH EYES (22:14)
[2018-12-09] MEDS: HYDROmorphONE 2 MG/ML SYG IV ×5 (04:05→21:07)
[2018-12-09] MEDS: oxyCODONE 5 MG TAB PO ×3 (05:00→19:15)
[2018-12-09] MEDS: LEVOTHYROXINE 75 MCG TAB PO (06:17)
[2018-12-09] MEDS: LORAZEPAM 2 MG INJ IV ×3 (06:22→23:03)
[2018-12-09 07:07] LABS: ABNORMAL IP MESSAGE 1; HEMATOCRIT 39.6 % (42.0-52.0); MEAN CORPUSCULAR HEMOGLOBIN 20.5 pg (29.0-33.0); MEAN CORPUSCULAR HGB CONC 27.8 g/dl (32.0-37.0); MEAN CORPUSCULAR VOLUME 73.7 fl (82.0-101.0); NUCLEATED RED BLOOD CELLS% 0.2 /100WBC (0.0-0.0); PLATELET COUNT 182 10^3/UL (140-415); POSITIVE DIFF @See below; RED BLOOD COUNT 5.37 10^6/ul (4.70-6.10); RED CELL DISTRIBUTION WIDTH 22.1 % (11.5-14.5)
[2018-12-09 07:07] LABS: WHITE BLOOD COUNT 12.4 10^3/ul (4.8-10.8)
[2018-12-09 07:09] LABS: ADD MAN DIFF? YES
[2018-12-09 07:18] LABS: AMMONIA 25 umol/l (9-30)
[2018-12-09 07:44] LABS: ANION GAP 9 (5-13); BLOOD UREA NITROGEN 35 mg/dl (7-20); CALCIUM 9.2 mg/dl (8.4-10.2); CARBON DIOXIDE 21 mmol/L (21-31); CHLORIDE 113 mmol/L (97-110); CREATININE 1.66 mg/dl (0.61-1.24); Estimated GFR 42 mL/min (>60); GLUCOSE 76 mg/dl (70-220); SODIUM 143 mmol/L (135-144)
[2018-12-09] MEDS: BUDESONIDE (NEB) 0.5MG/2ML AMP INH ×2 (08:00→19:34)
[2018-12-09] MEDS: ARFORMOTEROL TARTRATE 15MCG/2 ML AMP INH ×2 (08:07→19:33)
[2018-12-09] MEDS: RIFAXIMIN 550 MG TAB PO ×2 (08:45→20:54)
[2018-12-09] MEDS: FAMOTIDINE 20 MG TAB PO ×2 (08:45→20:54)
[2018-12-09] MEDS: ASCORBIC ACID 500 MG TAB PO (08:46)
[2018-12-09] MEDS: METOPROLOL (XL) 50 MG TAB PO (08:46)
[2018-12-09] MEDS: FERROUS SULFATE (EC) 325 MG TAB PO (08:46)
[2018-12-09] MEDS: LUBIPROSTONE 24 MCG CAP PO ×2 (08:46→21:07)
[2018-12-09] MEDS: THIAMINE 100 MG TAB PO (08:46)
[2018-12-09] MEDS: ALLOPURINOL 100 MG TAB PO (08:46)
[2018-12-09] MEDS: FUROSEMIDE 20 MG TAB PO (08:46)
[2018-12-09] MEDS: BUSPIRONE 10 MG TAB PO ×2 (08:47→20:54)
[2018-12-09] MEDS: FOLIC ACID 1 MG TAB PO (08:47)
[2018-12-09] MEDS: ZYVOX 600 MG TAB PO ×2 (08:47→20:54)
[2018-12-09] MEDS: AMLODIPINE 5 MG TAB PO ×2 (08:47→20:57)
[2018-12-09] MEDS: NICOTINE (21 MG/24 HR) PATCH TRANSDERM (08:47)
[2018-12-09] MEDS: CITRIC ACID/NA CITRATE 30 ML CUP PO ×3 (08:48→20:57)
[2018-12-09] MEDS: GABAPENTIN 100 MG CAP PO ×3 (08:48→20:54)
[2018-12-09] MEDS: DORZOLAMIDE/TIMOLOL/PF 0.2 ML DROPERETTE LEFT EYE ×2 (08:48→21:00)
[2018-12-09 09:27] LABS: ANISOCYTOSIS 2+ (0-0); BAND NEUTROPHILS #M 0.2 10^3/ul (0.0-0.6); BAND NEUTROPHILS % (M) 2 % (0-4); EOSINOPHILS % (M) 10 % (0-7); GIANT THROMBO% (M) 1 % (0-0); HYPOCHROMASIA 3+ (0-0); LYMPHOCYTES #M 1.2 10^3/ul (0.8-2.9); LYMPHOCYTES % (M) 10 % (15-51); METAMYELOCYTES #M 0.2 10^3/ul (0.0-0.0); METAMYELOCYTES %M 2 % (0-0); MICROCYTOSIS 2+ (0-0); MONOCYTE #M 2.8 10^3/ul (0.3-0.9); MONOCYTES % (M) 23 % (0-11); OVALOCYTES 1+ (0-0); PLATELET ESTIMATE NORMAL; POIKILOCYTOSIS 2+ (0-0); POLYCHROMASIA 3+ (0-0); REACTIVE LYMPHOCYTES #M 0.2 10^3/ul (0.0-0.0); REACTIVE LYMPHOCYTES% (M) 2 % (0-0); SEG NEUT #M 6.3 10^3/ul (1.6-7.5); SEGMENTED NEUTROPHILS (M) % 51 % (39-77); SMUDGE%M 2 % (0-0)
[2018-12-09] MEDS: TAMSULOSIN (SR) 0.4 MG CAP PO (20:54)
[2018-12-09] MEDS: DOCUSATE SODIUM 100 MG CAP PO (20:54)
[2018-12-09] MEDS: METOPROLOL (XL) 25 MG TAB PO (20:56)
[2018-12-09] MEDS: POLYETHYLENE GLYCOL 17 GM PACKET PO (21:15)
[2018-12-10] MEDS: HYDROmorphONE 2 MG/ML SYG IV ×5 (02:15→21:26)
[2018-12-10] MEDS: LEVOTHYROXINE 125 MCG TAB PO (05:31)
[2018-12-10] MEDS: oxyCODONE 5 MG TAB PO ×4 (05:31→20:36)
[2018-12-10 06:34] LABS: ADD MAN DIFF? NO
[2018-12-10 06:44] LABS: WHITE BLOOD COUNT 11.6 10^3/ul (4.8-10.8)
[2018-12-10 06:44] LABS: ABNORMAL IP MESSAGE 1; BASOPHIL # 0.1 10^3/ul (0.0-0.1); BASOPHILS % 0.9 % (0.0-2.0); EOSINOPHILS # 1.1 10^3/ul (0.0-0.5); EOSINOPHILS % 9.8 % (0.0-7.0); HEMATOCRIT 37.5 % (42.0-52.0); HEMOGLOBIN 10.6 g/dl (14.0-18.0); LYMPHOCYTES # 1.2 10^3/ul (0.8-2.9); LYMPHOCYTES % 10.3 % (15.0-51.0); MEAN CORPUSCULAR HEMOGLOBIN 20.6 pg (29.0-33.0); MEAN CORPUSCULAR HGB CONC 28.3 g/dl (32.0-37.0); MONOCYTE # 2.8 10^3/ul (0.3-0.9); MONOCYTES % 24.5 % (0.0-11.0); NEUTROPHIL # 6.2 10^3/ul (1.6-7.5); PLATELET COUNT 156 10^3/UL (140-415); POSITIVE DIFF @See below; RED BLOOD COUNT 5.14 10^6/ul (4.70-6.10); RED CELL DISTRIBUTION WIDTH 21.6 % (11.5-14.5)
[2018-12-10 07:01] LABS: ANION GAP 9 (5-13); BLOOD UREA NITROGEN 38 mg/dl (7-20); CARBON DIOXIDE 21 mmol/L (21-31); CHLORIDE 111 mmol/L (97-110); CREATININE 1.63 mg/dl (0.61-1.24); Estimated GFR 43 mL/min (>60); GLUCOSE 74 mg/dl (70-220); POTASSIUM 4.9 mmol/L (3.5-5.1); SODIUM 141 mmol/L (135-144)
[2018-12-10] MEDS: BUDESONIDE (NEB) 0.5MG/2ML AMP INH ×2 (08:42→19:35)
[2018-12-10] MEDS: CITRIC ACID/NA CITRATE 30 ML CUP PO ×3 (08:54→20:35)
[2018-12-10] MEDS: FAMOTIDINE 20 MG TAB PO ×2 (08:54→20:36)
[2018-12-10] MEDS: FOLIC ACID 1 MG TAB PO (08:54)
[2018-12-10] MEDS: BUSPIRONE 10 MG TAB PO ×2 (08:54→20:35)
[2018-12-10] MEDS: AMLODIPINE 5 MG TAB PO ×2 (08:54→20:39)
[2018-12-10] MEDS: LUBIPROSTONE 24 MCG CAP PO ×2 (08:54→20:41)
[2018-12-10] MEDS: RIFAXIMIN 550 MG TAB PO ×2 (08:54→20:36)
[2018-12-10] MEDS: ZYVOX 600 MG TAB PO ×2 (08:54→20:35)
[2018-12-10] MEDS: FERROUS SULFATE (EC) 325 MG TAB PO (08:55)
[2018-12-10] MEDS: NICOTINE (21 MG/24 HR) PATCH TRANSDERM (08:55)
[2018-12-10] MEDS: FUROSEMIDE 20 MG TAB PO (08:55)
[2018-12-10] MEDS: METOPROLOL (XL) 50 MG TAB PO (08:55)
[2018-12-10] MEDS: ASCORBIC ACID 500 MG TAB PO (08:55)
[2018-12-10] MEDS: THIAMINE 100 MG TAB PO (08:55)
[2018-12-10] MEDS: ALLOPURINOL 100 MG TAB PO (08:55)
[2018-12-10] MEDS: GABAPENTIN 100 MG CAP PO ×3 (08:56→20:36)
[2018-12-10] MEDS: DORZOLAMIDE/TIMOLOL/PF 0.2 ML DROPERETTE LEFT EYE (08:56)
[2018-12-10] MEDS: ARFORMOTEROL TARTRATE 15MCG/2 ML AMP INH ×2 (09:00→19:35)
[2018-12-10] MEDS: LORAZEPAM 2 MG INJ IV ×3 (09:59→22:09)
[2018-12-10] MEDS: DOCUSATE SODIUM 100 MG CAP PO (20:35)
[2018-12-10] MEDS: TAMSULOSIN (SR) 0.4 MG CAP PO (20:36)
[2018-12-10] MEDS: POLYETHYLENE GLYCOL 17 GM PACKET PO (20:42)
[2018-12-10] MEDS: METOPROLOL (XL) 25 MG TAB PO (20:42)
[2018-12-10] MEDS: MAGNESIUM CITRATE 300 ML BTL PO (21:26)
[2018-12-11] MEDS: HYDROmorphONE 2 MG/ML SYG IV ×6 (01:37→22:30)
[2018-12-11] MEDS: oxyCODONE 5 MG TAB PO ×3 (03:01→19:29)
[2018-12-11 05:51] LABS: ADD MAN DIFF? NO
[2018-12-11] MEDS: LEVOTHYROXINE 125 MCG TAB PO (05:52)
[2018-12-11 06:11] LABS: ABNORMAL IP MESSAGE 1; BASOPHIL # 0.1 10^3/ul (0.0-0.1); BASOPHILS % 0.7 % (0.0-2.0); EOSINOPHILS # 1.1 10^3/ul (0.0-0.5); EOSINOPHILS % 10.3 % (0.0-7.0); HEMATOCRIT 37.5 % (42.0-52.0); HEMOGLOBIN 10.6 g/dl (14.0-18.0); LYMPHOCYTES # 1.1 10^3/ul (0.8-2.9); LYMPHOCYTES % 10.4 % (15.0-51.0); MEAN CORPUSCULAR HEMOGLOBIN 20.6 pg (29.0-33.0); MEAN CORPUSCULAR HGB CONC 28.3 g/dl (32.0-37.0); MONOCYTE # 2.4 10^3/ul (0.3-0.9); MONOCYTES % 23.4 % (0.0-11.0); NEUTROPHIL # 5.6 10^3/ul (1.6-7.5); PLATELET COUNT 132 10^3/UL (140-415); POSITIVE DIFF @See below; RED BLOOD COUNT 5.14 10^6/ul (4.70-6.10); RED CELL DISTRIBUTION WIDTH 21.3 % (11.5-14.5)
[2018-12-11 06:11] LABS: WHITE BLOOD COUNT 10.4 10^3/ul (4.8-10.8)
[2018-12-11 06:22] LABS: ANION GAP 10 (5-13); BLOOD UREA NITROGEN 36 mg/dl (7-20); CALCIUM 9.2 mg/dl (8.4-10.2); CARBON DIOXIDE 22 mmol/L (21-31); CHLORIDE 110 mmol/L (97-110); CREATININE 1.79 mg/dl (0.61-1.24); Estimated GFR 39 mL/min (>60); GLUCOSE 99 mg/dl (70-220); POTASSIUM 4.3 mmol/L (3.5-5.1); SODIUM 142 mmol/L (135-144)
[2018-12-11] MEDS: LORAZEPAM 2 MG INJ IV ×4 (07:46→21:36)
[2018-12-11] MEDS: BUDESONIDE (NEB) 0.5MG/2ML AMP INH ×2 (07:52→20:42)
[2018-12-11] MEDS: ARFORMOTEROL TARTRATE 15MCG/2 ML AMP INH ×2 (07:52→20:42)
[2018-12-11] MEDS: GABAPENTIN 100 MG CAP PO (09:00)
[2018-12-11] MEDS: ZYVOX 600 MG TAB PO ×2 (09:15→20:35)
[2018-12-11] MEDS: CITRIC ACID/NA CITRATE 30 ML CUP PO ×3 (09:15→20:36)
[2018-12-11] MEDS: ALLOPURINOL 100 MG TAB PO (09:15)
[2018-12-11] MEDS: ASCORBIC ACID 500 MG TAB PO (09:15)
[2018-12-11] MEDS: FAMOTIDINE 20 MG TAB PO ×2 (09:16→20:35)
[2018-12-11] MEDS: FOLIC ACID 1 MG TAB PO (09:16)
[2018-12-11] MEDS: BUSPIRONE 10 MG TAB PO ×2 (09:16→20:36)
[2018-12-11] MEDS: LUBIPROSTONE 24 MCG CAP PO ×2 (09:16→20:35)
[2018-12-11] MEDS: AMLODIPINE 5 MG TAB PO ×2 (09:16→20:36)
[2018-12-11] MEDS: RIFAXIMIN 550 MG TAB PO ×2 (09:16→20:35)
[2018-12-11] MEDS: FERROUS SULFATE (EC) 325 MG TAB PO (09:16)
[2018-12-11] MEDS: THIAMINE 100 MG TAB PO (09:16)
[2018-12-11] MEDS: METOPROLOL (XL) 50 MG TAB PO (09:16)
[2018-12-11] MEDS: FUROSEMIDE 20 MG TAB PO (09:17)
[2018-12-11] MEDS: NICOTINE (21 MG/24 HR) PATCH TRANSDERM (09:17)
[2018-12-11] MEDS: DOCUSATE SODIUM 100 MG CAP PO (20:34)
[2018-12-11] MEDS: TAMSULOSIN (SR) 0.4 MG CAP PO (20:35)
[2018-12-11] MEDS: METOPROLOL (XL) 25 MG TAB PO (20:35)
[2018-12-12] MEDS: oxyCODONE 5 MG TAB PO ×5 (00:15→20:00)
[2018-12-12] MEDS: HYDROmorphONE 2 MG/ML SYG IV ×5 (02:50→21:13)
[2018-12-12] MEDS: LORAZEPAM 2 MG INJ IV ×3 (03:38→18:21)
[2018-12-12] MEDS: POLYETHYLENE GLYCOL 17 GM PACKET PO (03:38)
[2018-12-12] MEDS: LEVOTHYROXINE 125 MCG TAB PO (05:44)
[2018-12-12] MEDS: BUDESONIDE (NEB) 0.5MG/2ML AMP INH ×2 (08:00→20:23)
[2018-12-12] MEDS: BUSPIRONE 10 MG TAB PO ×2 (08:52→20:34)
[2018-12-12] MEDS: LUBIPROSTONE 24 MCG CAP PO ×2 (08:52→20:35)
[2018-12-12] MEDS: METOPROLOL (XL) 25 MG TAB PO ×2 (08:53→20:42)
[2018-12-12] MEDS: AMLODIPINE 5 MG TAB PO ×2 (08:54→20:42)
[2018-12-12] MEDS: ASCORBIC ACID 500 MG TAB PO (08:54)
[2018-12-12] MEDS: FAMOTIDINE 20 MG TAB PO ×2 (08:54→20:34)
[2018-12-12] MEDS: FOLIC ACID 1 MG TAB PO (08:54)
[2018-12-12] MEDS: RIFAXIMIN 550 MG TAB PO ×2 (08:54→20:34)
[2018-12-12] MEDS: FERROUS SULFATE (EC) 325 MG TAB PO (08:54)
[2018-12-12] MEDS: ALLOPURINOL 100 MG TAB PO (08:54)
[2018-12-12] MEDS: ZYVOX 600 MG TAB PO ×2 (08:54→20:34)
[2018-12-12] MEDS: FUROSEMIDE 40 MG TAB PO (08:54)
[2018-12-12] MEDS: THIAMINE 100 MG TAB PO (08:54)
[2018-12-12] MEDS: CITRIC ACID/NA CITRATE 30 ML CUP PO ×3 (08:55→20:46)
[2018-12-12] MEDS: NICOTINE (21 MG/24 HR) PATCH TRANSDERM (08:55)
[2018-12-12] MEDS: ARFORMOTEROL TARTRATE 15MCG/2 ML AMP INH ×2 (08:59→20:23)
[2018-12-12] MEDS: DOCUSATE SODIUM 100 MG CAP PO (20:34)
[2018-12-12] MEDS: TAMSULOSIN (SR) 0.4 MG CAP PO (20:34)
[2018-12-13] MEDS: HYDROmorphONE 2 MG/ML SYG IV ×4 (01:18→13:22)
[2018-12-13] MEDS: LORAZEPAM 2 MG INJ IV ×2 (02:38→10:16)
[2018-12-13] MEDS: oxyCODONE 5 MG TAB PO (03:49)
[2018-12-13] MEDS: LEVOTHYROXINE 125 MCG TAB PO (05:15)
[2018-12-13 06:01] LABS: ANION GAP 9 (5-13); BLOOD UREA NITROGEN 40 mg/dl (7-20); CALCIUM 9.1 mg/dl (8.4-10.2); CARBON DIOXIDE 23 mmol/L (21-31); CHLORIDE 108 mmol/L (97-110); CREATININE 1.79 mg/dl (0.61-1.24); Estimated GFR 39 mL/min (>60); GLUCOSE 96 mg/dl (70-220); POTASSIUM 4.8 mmol/L (3.5-5.1); SODIUM 140 mmol/L (135-144)
[2018-12-13 06:10] LABS: MAGNESIUM 1.9 mg/dl (1.7-2.5)
[2018-12-13] MEDS: BUDESONIDE (NEB) 0.5MG/2ML AMP INH (08:00)
[2018-12-13] MEDS: ARFORMOTEROL TARTRATE 15MCG/2 ML AMP INH (09:00)
[2018-12-13] MEDS: CITRIC ACID/NA CITRATE 30 ML CUP PO ×2 (09:14→14:01)
[2018-12-13] MEDS: RIFAXIMIN 550 MG TAB PO (09:15)
[2018-12-13] MEDS: THIAMINE 100 MG TAB PO (09:15)
[2018-12-13] MEDS: LUBIPROSTONE 24 MCG CAP PO (09:15)
[2018-12-13] MEDS: FAMOTIDINE 20 MG TAB PO (09:15)
[2018-12-13] MEDS: ASCORBIC ACID 500 MG TAB PO (09:15)
[2018-12-13] MEDS: BUSPIRONE 10 MG TAB PO (09:15)
[2018-12-13] MEDS: AMLODIPINE 5 MG TAB PO (09:15)
[2018-12-13] MEDS: FERROUS SULFATE (EC) 325 MG TAB PO (09:16)
[2018-12-13] MEDS: FOLIC ACID 1 MG TAB PO (09:16)
[2018-12-13] MEDS: METOPROLOL (XL) 25 MG TAB PO (09:16)
[2018-12-13] MEDS: ZYVOX 600 MG TAB PO (09:16)
[2018-12-13] MEDS: ALLOPURINOL 100 MG TAB PO (09:16)
[2018-12-13] MEDS: FUROSEMIDE 40 MG TAB PO (09:17)
[2018-12-13] MEDS: NICOTINE (21 MG/24 HR) PATCH TRANSDERM (09:19)
== END 2018-12-13 15:35 | disposition home or self-care (01) | DRG 291 ==
LOC: PP2 11-21 03:35 → E/R 08:26 → TEL 09:53
PROC: 0DJD8ZZ Inspection of Lower Intestinal Tract, Via Natural or Artificial Opening Endoscopic (ICD-10-PCS; principal; 2018-12-04 11:20)
DX: I13.0 Hypertensive heart and chronic kidney disease with heart failure and stage 1 through stage 4 chronic kidney disease, or unspecified chronic kidney disease (principal); I50.33 Acute on chronic diastolic (congestive) heart failure; K76.7 Hepatorenal syndrome; R65.10 Systemic inflammatory response syndrome (SIRS) of non-infectious origin without acute organ dysfunction; N17.9 Acute kidney failure, unspecified; E87.2 Acidosis; J44.1 Chronic obstructive pulmonary disease with (acute) exacerbation; L03.116 Cellulitis of left lower limb; L03.115 Cellulitis of right lower limb; N18.9 Chronic kidney disease, unspecified; E03.9 Hypothyroidism, unspecified; D63.1 Anemia in chronic kidney disease; I87.8 Other specified disorders of veins; E66.9 Obesity, unspecified; E87.5 Hyperkalemia; N40.0 Benign prostatic hyperplasia without lower urinary tract symptoms; F10.20 Alcohol dependence, uncomplicated; K70.31 Alcoholic cirrhosis of liver with ascites; F41.9 Anxiety disorder, unspecified; F17.200 Nicotine dependence, unspecified, uncomplicated; K59.03 Drug induced constipation; T40.2X5A Adverse effect of other opioids, initial encounter; K64.4 Residual hemorrhoidal skin tags; M47.9 Spondylosis, unspecified; Z91.19 Patient's noncompliance with other medical treatment and regimen; Z68.32 Body mass index [BMI] 32.0-32.9, adult
CPT/HCPCS: 36415; 71045; 76705; 80048; 80053; 80307; 82140; 82378; 82550; 82553; 83036; 83735; 83880; 84443; 84484; 85025; 85610; 85730; 87040-91; 87086; 93005; 94640; 94664; 99285-25

== ENCOUNTER 2019-01-16 06:35 | Inpatient (IN) | payer BC ==
[2019-01-16] MEDS: IPRATROPIUM (NEB) 0.5 MG/2.5 ML AMP NEB (09:52)
[2019-01-16] MEDS: ALBUTEROL 0.083% (NEB) 2.5 MG/3 ML AMP NEB (09:52)
[2019-01-16 09:56] LABS: WHITE BLOOD COUNT 9.4 10^3/ul (4.8-10.8)
[2019-01-16 09:56] LABS: ABNORMAL IP MESSAGE 1; ADD MAN DIFF? NO; BASOPHIL # 0.3 10^3/ul (0.0-0.1); EOSINOPHILS # 0.1 10^3/ul (0.0-0.5); EOSINOPHILS % 1.2 % (0.0-7.0); HEMOGLOBIN 12.9 g/dl (14.0-18.0); LYMPHOCYTES # 1.2 10^3/ul (0.8-2.9); LYMPHOCYTES % 13.2 % (15.0-51.0); MEAN CORPUSCULAR HEMOGLOBIN 21.8 pg (29.0-33.0); MEAN CORPUSCULAR VOLUME 72.8 fl (82.0-101.0); MONOCYTE # 1.3 10^3/ul (0.3-0.9); MONOCYTES % 13.9 % (0.0-11.0); NEUTROPHIL # 6.3 10^3/ul (1.6-7.5); NEUTROPHILS % 67.2 % (39.0-77.0); RED BLOOD COUNT 5.91 10^6/ul (4.70-6.10); RED CELL DISTRIBUTION WIDTH 26.6 % (11.5-14.5)
[2019-01-16 10:00] LABS: PLATELET COUNT 96 10^3/UL (140-415)
[2019-01-16] MEDS: ASPIRIN 325 MG TAB PO (10:20)
[2019-01-16] MEDS: LORAZEPAM 2 MG INJ IV (10:20)
[2019-01-16 11:38] LABS: ALANINE AMINOTRANSFERASE 38 IU/L (13-69); ALBUMIN 3.6 g/dl (3.3-4.9); ALBUMIN/GLOBULIN RATIO 1.05; ALKALINE PHOSPHATASE 128 IU/L (42-121); ANION GAP 10 (5-13); ASPARTATE AMINO TRANSFERASE 86 IU/L (15-46); BILIRUBIN,INDIRECT 0.6 mg/dl (0-1.1); BILIRUBIN,TOTAL 0.6 mg/dl (0.2-1.3); BLOOD UREA NITROGEN 18 mg/dl (7-20); CALCIUM 7.7 mg/dl (8.4-10.2); CARBON DIOXIDE 30 mmol/L (21-31); CHLORIDE 105 mmol/L (97-110); CREATINE KINASE 58 IU/L (23-200); CREATININE 1.36 mg/dl (0.61-1.24); Estimated GFR 53 mL/min (>60); GLUCOSE 96 mg/dl (70-220); POTASSIUM 3.9 mmol/L (3.5-5.1); SODIUM 145 mmol/L (135-144)
[2019-01-16 11:39] LABS: INR 1.14; PROTIME 14.7 Sec (11.9-14.9); PT RATIO 1.1
[2019-01-16 11:40] LABS: PARTIAL THROMBOPLASTIN TIME 31.1 Sec (23.0-35.0)
[2019-01-16 11:50] LABS: B-TYPE NATRIURETIC PEPTIDE 401 PG/ML (0-125); CK INDEX 1.6; CK-MB 0.91 ng/ml (0.0-2.4); TROPONIN-I 0.016 ng/ml (0.000-0.120)
[2019-01-16 11:51] LABS: ACETAMINOPHEN < 10.0 ug/ml (10.0-30.0); SALICYLATE < 1.0 mg/dl (5.0-30.0)
[2019-01-16 14:19] LABS: AADO2 Arterial 112.5 mmHg (7.0-24.0); Allen Test ACCEPTAB; Arterial Base Excess 2.5 mmol/L (-3.0-3); Arterial Blood Gas Oxygen Sat 97.1 mmHG (95.0-98.0); Arterial COHb 3.6 % (0.0-3.0); Arterial Fraction of Oxyhgb 93.3 % (93.0-99.0); Arterial MetHb 0.3 % (0.0-1.5); Arterial pCO2 53.3 mmhg (35-45); MODE NASAL CANNULA; Site Right Radial
[2019-01-16] MEDS: IPRATROPIUM (NEB) 0.5 MG/2.5 ML AMP INH (14:25)
[2019-01-16] MEDS: ALBUTEROL 0.5% (NEB) 2.5 MG/0.5 ML AMP INH (14:25)
[2019-01-16] MEDS ORDERED: ACETAMINOPHEN 325 MG TAB PO (15:00)
[2019-01-16] MEDS ORDERED: ONDANSETRON 4 MG INJ IV (15:00)
[2019-01-16] MEDS ORDERED: oxyCODONE (CR) 10 MG TAB [oxyCONTIN] PO (19:30)
[2019-01-16] MEDS: HYDROmorphONE 1 MG/ML SYG IV ×2 (20:10→23:57)
[2019-01-16] MEDS: LORAZEPAM 1 MG TAB PO (21:22)
[2019-01-16] MEDS ORDERED: oxyCODONE 5 MG TAB PO (22:30)
[2019-01-17] MEDS: LORAZEPAM 1 MG TAB PO ×2 (03:06→18:02)
[2019-01-17] MEDS: HYDROmorphONE 2 MG/ML SYG IV ×5 (03:37→21:58)
[2019-01-17] MEDS ORDERED: ACETAMINOPHEN 500 MG TAB PO (05:00)
[2019-01-17] MEDS ORDERED: LORAZEPAM 1 MG TAB PO (05:00)
[2019-01-17 06:50] LABS: ADD MAN DIFF? NO
[2019-01-17] MEDS: LEVOTHYROXINE 100 MCG TAB PO (06:50)
[2019-01-17] MEDS: PANTOPRAZOLE (EC) 40 MG TAB PO (06:50)
[2019-01-17] MEDS: BUMETANIDE 1 MG TAB PO ×2 (06:51→17:49)
[2019-01-17 06:54] LABS: ABNORMAL IP MESSAGE 1; BASOPHIL # 0.1 10^3/ul (0.0-0.1); BASOPHILS % 1.3 % (0.0-2.0); EOSINOPHILS # 0.1 10^3/ul (0.0-0.5); HEMATOCRIT 39.7 % (42.0-52.0); HEMOGLOBIN 11.7 g/dl (14.0-18.0); LYMPHOCYTES # 0.7 10^3/ul (0.8-2.9); LYMPHOCYTES % 5.9 % (15.0-51.0); MEAN CORPUSCULAR HEMOGLOBIN 21.9 pg (29.0-33.0); MEAN CORPUSCULAR HGB CONC 29.5 g/dl (32.0-37.0); MEAN CORPUSCULAR VOLUME 74.2 fl (82.0-101.0); MONOCYTE # 1.7 10^3/ul (0.3-0.9); MONOCYTES % 15.4 % (0.0-11.0); NEUTROPHIL # 8.3 10^3/ul (1.6-7.5); NEUTROPHILS % 75.2 % (39.0-77.0); PLATELET COUNT 55 10^3/UL (140-415); POSITIVE DIFF @See below; RED BLOOD COUNT 5.35 10^6/ul (4.70-6.10); RED CELL DISTRIBUTION WIDTH 26.2 % (11.5-14.5)
[2019-01-17] MEDS: ALBUTEROL HFA 8 GM INHALER INH ×6 (06:58→22:08)
[2019-01-17 07:15] LABS: ANION GAP 5 (5-13); BLOOD UREA NITROGEN 19 mg/dl (7-20); CALCIUM 7.7 mg/dl (8.4-10.2); CARBON DIOXIDE 32 mmol/L (21-31); CHLORIDE 103 mmol/L (97-110); CREATININE 1.19 mg/dl (0.61-1.24); Estimated GFR > 60 mL/min (>60); GLUCOSE 77 mg/dl (70-220); POTASSIUM 4.2 mmol/L (3.5-5.1); SODIUM 140 mmol/L (135-144)
[2019-01-17] MEDS: FUROSEMIDE 40 MG INJ IV (08:24)
[2019-01-17] MEDS: SPIRONOLACTONE 25 MG TAB PO (08:26)
[2019-01-17] MEDS: DOCUSATE SODIUM 100 MG CAP PO ×2 (08:26→21:16)
[2019-01-17] MEDS: POTASSIUM CHLORIDE (SR) 20 MEQ TAB PO (08:26)
[2019-01-17] MEDS: FOLIC ACID 1 MG TAB PO (08:27)
[2019-01-17] MEDS: MULTIVIT/CA CARB/B CMPLX/FA TAB PO (08:27)
[2019-01-17] MEDS: ALLOPURINOL 100 MG TAB PO (08:27)
[2019-01-17] MEDS: LUBIPROSTONE 24 MCG CAP PO ×2 (08:27→21:17)
[2019-01-17] MEDS: METOPROLOL (XL) 50 MG TAB PO ×2 (08:27→21:15)
[2019-01-17] MEDS: oxyCODONE (CR) 10 MG TAB [oxyCONTIN] PO ×2 (09:00→21:17)
[2019-01-17] MEDS: MULTIVITAMINS 10 ML, THIAMINE 100 MG, FOLIC ACID 1 MG in SOD CHLORIDE 0.9% 1,000 ML IVPB (10:27)
[2019-01-17] MEDS: AMLODIPINE 10 MG TAB PO (12:33)
[2019-01-17] MEDS: hydrALAzine 20 MG INJ IV (18:34)
[2019-01-17 18:35] LABS: CREATINE KINASE 63 IU/L (23-200)
[2019-01-17 18:50] LABS: CK-MB 1.29 ng/ml (0.0-2.4); TROPONIN-I 0.012 ng/ml (0.000-0.120)
[2019-01-18 01:12] LABS: CREATINE KINASE 85 IU/L (23-200)
[2019-01-18 01:20] LABS: CK-MB 1.72 ng/ml (0.0-2.4)
[2019-01-18 01:26] LABS: TROPONIN-I 0.013 ng/ml (0.000-0.120)
[2019-01-18 02:08] LABS: ADD UMIC YES; UR ASCORBIC ACID NEGATIVE (NEGATIVE); UR BILIRUBIN (Dip) NEGATIVE (NEGATIVE); UR BLOOD (Dip) 2+ mg/dL (NEGATIVE); UR CLARITY CLEAR (CLEAR); UR COLOR YELLOW (YELLOW); UR GLUCOSE (Dip) NEGATIVE (NEGATIVE); UR KETONES (Dip) NEGATIVE (NEGATIVE); UR LEUKOCYTE ESTERASE (Dip) NEGATIVE Leu/ul (NEGATIVE); UR NITRITE (Dip) NEGATIVE (NEGATIVE); UR RBC 13 /HPF (0-5); UR SPECIFIC GRAVITY (Dip) 1.006 (1.003-1.030); UR TOTAL PROTEIN (Dip) 1+ mg/dl (NEGATIVE); UR UROBILINOGEN (Dip) NEGATIVE (NEGATIVE); UR WBC 0 /HPF (0-5)
[2019-01-18] MEDS: ALBUTEROL HFA 8 GM INHALER INH ×3 (02:20→09:00)
[2019-01-18] MEDS: HYDROmorphONE 2 MG/ML SYG IV ×2 (02:21→06:51)
[2019-01-18 02:22] LABS: AMPHETAMINE/METHAMPHETAMINE Negative (NEGATIVE); BARBITURATES Negative (NEGATIVE); BENZODIAZEPINES Negative (NEGATIVE); CANNABINOIDS Negative (NEGATIVE); COCAINE Negative (NEGATIVE); OPIATES Positive (NEGATIVE)
[2019-01-18] MEDS: LORAZEPAM 1 MG TAB PO (03:39)
[2019-01-18 06:25] LABS: ADD MAN DIFF? NO
[2019-01-18 06:31] LABS: WHITE BLOOD COUNT 13.9 10^3/ul (4.8-10.8)
[2019-01-18 06:31] LABS: ABNORMAL IP MESSAGE 1; BASOPHIL # 0.2 10^3/ul (0.0-0.1); BASOPHILS % 1.1 % (0.0-2.0); EOSINOPHILS # 0.4 10^3/ul (0.0-0.5); EOSINOPHILS % 2.7 % (0.0-7.0); HEMATOCRIT 45.2 % (42.0-52.0); HEMOGLOBIN 13.3 g/dl (14.0-18.0); LYMPHOCYTES # 1.6 10^3/ul (0.8-2.9); LYMPHOCYTES % 11.4 % (15.0-51.0); MEAN CORPUSCULAR HGB CONC 29.4 g/dl (32.0-37.0); MEAN CORPUSCULAR VOLUME 74.8 fl (82.0-101.0); MONOCYTE # 2.3 10^3/ul (0.3-0.9); MONOCYTES % 16.6 % (0.0-11.0); NEUTROPHIL # 9.3 10^3/ul (1.6-7.5); NEUTROPHILS % 66.9 % (39.0-77.0); PLATELET COUNT 77 10^3/UL (140-415); POSITIVE DIFF @See below; RED BLOOD COUNT 6.04 10^6/ul (4.70-6.10); RED CELL DISTRIBUTION WIDTH 26.2 % (11.5-14.5)
[2019-01-18] MEDS: PANTOPRAZOLE (EC) 40 MG TAB PO (06:41)
[2019-01-18] MEDS: BUMETANIDE 1 MG TAB PO (06:41)
[2019-01-18] MEDS: LEVOTHYROXINE 100 MCG TAB PO (06:41)
[2019-01-18 07:08] LABS: TROPONIN-I < 0.012 ng/ml (0.000-0.120)
[2019-01-18 07:12] LABS: ANION GAP 8 (5-13); BLOOD UREA NITROGEN 21 mg/dl (7-20); CALCIUM 8.4 mg/dl (8.4-10.2); CARBON DIOXIDE 31 mmol/L (21-31); CHLORIDE 98 mmol/L (97-110); CK INDEX 2.4; CREATINE KINASE 104 IU/L (23-200); CREATININE 1.39 mg/dl (0.61-1.24); Estimated GFR 52 mL/min (>60); GLUCOSE 94 mg/dl (70-220); POTASSIUM 4.1 mmol/L (3.5-5.1); SODIUM 137 mmol/L (135-144)
[2019-01-18 07:16] LABS: CHOLESTEROL 191 mg/dl (100-200)
[2019-01-18 07:16] LABS: CHOL/HDL RATIO 3.1 RATIO; HDL CHOLESTEROL 61 mg/dl (30-78); LDL CHOLESTEROL,CALCULATED 105 mg/dl; TRIGLYCERIDES 123 mg/dl (0-149)
[2019-01-18 07:17] LABS: URIC ACID 12.8 mg/dl (3.1-7.9)
[2019-01-18 07:26] LABS: CK-MB 2.48 ng/ml (0.0-2.4)
[2019-01-18] MEDS: MULTIVIT/CA CARB/B CMPLX/FA TAB PO (08:21)
[2019-01-18] MEDS: oxyCODONE (CR) 10 MG TAB [oxyCONTIN] PO (08:21)
[2019-01-18] MEDS: FOLIC ACID 1 MG TAB PO (08:21)
[2019-01-18] MEDS: LUBIPROSTONE 24 MCG CAP PO (08:21)
[2019-01-18] MEDS: DOCUSATE SODIUM 100 MG CAP PO (08:21)
[2019-01-18] MEDS: SPIRONOLACTONE 25 MG TAB PO (08:21)
[2019-01-18] MEDS: ALLOPURINOL 100 MG TAB PO (08:21)
[2019-01-18] MEDS: POTASSIUM CHLORIDE (SR) 20 MEQ TAB PO (08:22)
[2019-01-18] MEDS: METOPROLOL (XL) 50 MG TAB PO (08:22)
[2019-01-18] MEDS: AMLODIPINE 10 MG TAB PO (08:22)
[2019-01-18] MEDS: MULTIVITAMINS 10 ML, THIAMINE 100 MG, FOLIC ACID 1 MG in SOD CHLORIDE 0.9% 1,000 ML IVPB (08:42)
== END 2019-01-18 11:11 | disposition left against medical advice (07) | DRG 291 ==
LOC: E/R 06:35 → 6WM 01-17 13:28
PROVIDERS: Internal Medicine
PROC: 4A033R1 Measurement of Arterial Saturation, Peripheral, Percutaneous Approach (ICD-10-PCS; principal; 2019-01-16)
DX: I13.0 Hypertensive heart and chronic kidney disease with heart failure and stage 1 through stage 4 chronic kidney disease, or unspecified chronic kidney disease (principal); I50.33 Acute on chronic diastolic (congestive) heart failure; L03.116 Cellulitis of left lower limb; L03.115 Cellulitis of right lower limb; N17.9 Acute kidney failure, unspecified; F10.229 Alcohol dependence with intoxication, unspecified; J44.9 Chronic obstructive pulmonary disease, unspecified; E78.5 Hyperlipidemia, unspecified; Y90.8 Blood alcohol level of 240 mg/100 ml or more; N18.9 Chronic kidney disease, unspecified; E03.9 Hypothyroidism, unspecified; D69.59 Other secondary thrombocytopenia; I87.8 Other specified disorders of veins; E66.9 Obesity, unspecified; F17.210 Nicotine dependence, cigarettes, uncomplicated; E11.22 Type 2 diabetes mellitus with diabetic chronic kidney disease; E11.621 Type 2 diabetes mellitus with foot ulcer; L97.529 Non-pressure chronic ulcer of other part of left foot with unspecified severity; D63.1 Anemia in chronic kidney disease; K70.31 Alcoholic cirrhosis of liver with ascites; N40.0 Benign prostatic hyperplasia without lower urinary tract symptoms; I25.10 Atherosclerotic heart disease of native coronary artery without angina pectoris; F15.10 Other stimulant abuse, uncomplicated; F14.10 Cocaine abuse, uncomplicated; Z88.0 Allergy status to penicillin
CPT/HCPCS: 36600; 71045; 76705; 80048; 80053; 80061; 80307; 81001; 82550; 82553; 82803; 83880; 84484; 84560; 85025; 85610; 85730; 87040-91; 93005; 93970; 94644; 94664; 96374; 99285-25

== ENCOUNTER 2019-01-18 12:56 | Emergency (ER) | payer BC ==
[2019-01-18 15:03] LABS: ABNORMAL IP MESSAGE 1; HEMATOCRIT 41.4 % (42.0-52.0); HEMOGLOBIN 12.1 g/dl (14.0-18.0); MEAN CORPUSCULAR HEMOGLOBIN 21.9 pg (29.0-33.0); MEAN CORPUSCULAR HGB CONC 29.2 g/dl (32.0-37.0); PLATELET COUNT 71 10^3/UL (140-415); POSITIVE DIFF @See below; RED BLOOD COUNT 5.52 10^6/ul (4.70-6.10); RED CELL DISTRIBUTION WIDTH 25.9 % (11.5-14.5)
[2019-01-18 15:03] LABS: WHITE BLOOD COUNT 15.3 10^3/ul (4.8-10.8)
[2019-01-18 15:07] LABS: ADD MAN DIFF? YES
[2019-01-18 15:21] LABS: INR 1.13; PROTIME 14.6 Sec (11.9-14.9); PT RATIO 1.1
[2019-01-18 15:25] LABS: ALANINE AMINOTRANSFERASE 32 IU/L (13-69); ALBUMIN 3.8 g/dl (3.3-4.9); ALBUMIN/GLOBULIN RATIO 1.18; ALKALINE PHOSPHATASE 126 IU/L (42-121); ANION GAP 12 (5-13); ASPARTATE AMINO TRANSFERASE 52 IU/L (15-46); BILIRUBIN,INDIRECT 1.1 mg/dl (0-1.1); BILIRUBIN,TOTAL 1.1 mg/dl (0.2-1.3); BLOOD UREA NITROGEN 24 mg/dl (7-20); CARBON DIOXIDE 27 mmol/L (21-31); CHLORIDE 97 mmol/L (97-110); CREATINE KINASE 138 IU/L (23-200); CREATININE 1.73 mg/dl (0.61-1.24); Estimated GFR 40 mL/min (>60); GLUCOSE 79 mg/dl (70-220); POTASSIUM 4.5 mmol/L (3.5-5.1); SODIUM 136 mmol/L (135-144)
[2019-01-18] MEDS ORDERED: NICOTINE (21 MG/24 HR) PATCH TRANSDERM (15:30)
[2019-01-18 15:36] LABS: B-TYPE NATRIURETIC PEPTIDE 3420 PG/ML (0-125); CK INDEX 2.1; TROPONIN-I < 0.012 ng/ml (0.000-0.120)
[2019-01-18 15:37] LABS: ANISOCYTOSIS 1+ (0-0); BAND NEUTROPHILS #M 0.1 10^3/ul (0.0-0.6); BAND NEUTROPHILS % (M) 1 % (0-4); BURR CELLS 1+ (0-0); EOSINOPHILS % (M) 2 % (0-7); GIANT THROMBO% (M) 1 % (0-0); HYPOCHROMASIA 1+ (0-0); LYMPHOCYTES #M 0.6 10^3/ul (0.8-2.9); LYMPHOCYTES % (M) 4 % (15-51); MICROCYTOSIS 1+ (0-0); MONOCYTE #M 2.4 10^3/ul (0.3-0.9); MONOCYTES % (M) 16 % (0-11); OVALOCYTES 2+ (0-0); PLATELET ESTIMATE DECREASED; POIKILOCYTOSIS 2+ (0-0); POLYCHROMASIA 1+ (0-0); SEG NEUT #M 11.8 10^3/ul (1.6-7.5); SEGMENTED NEUTROPHILS (M) % 77 % (39-77); SMUDGE%M 4 % (0-0); TEAR DROP CELLS 1+ (0-0)
[2019-01-18 15:47] LABS: CK-MB 2.85 ng/ml (0.0-2.4)
[2019-01-18 15:47] LABS: ETHANOL < 10.0 mg/dl (0-0)
[2019-01-18] MEDS: ALBUTEROL 0.5% (NEB) 2.5 MG/0.5 ML AMP INH (15:48)
[2019-01-18] MEDS: IPRATROPIUM (NEB) 0.5 MG/2.5 ML AMP INH (15:48)
[2019-01-18] MEDS: LORAZEPAM 2 MG INJ IV (16:21)
== END 2019-01-18 18:37 | disposition left against medical advice (07) ==
LOC: E/R 12:56
DX: J44.9 Chronic obstructive pulmonary disease, unspecified (principal); F10.230 Alcohol dependence with withdrawal, uncomplicated; F17.210 Nicotine dependence, cigarettes, uncomplicated; I10 Essential (primary) hypertension; I50.9 Heart failure, unspecified; E11.9 Type 2 diabetes mellitus without complications
CPT/HCPCS: 80053; 80307; 82550; 82553; 83880; 84484; 85025; 85610; 85730; 93005; 94644; 96374; 99284-25

== ENCOUNTER 2019-01-30 10:57 | Emergency (ER) | payer BC | END 2019-01-30 14:02 | disposition home or self-care (01) | LOC: E/R 10:57 | DX: F10.920 Alcohol use, unspecified with intoxication, uncomplicated (principal); I11.0 Hypertensive heart disease with heart failure; I50.9 Heart failure, unspecified; J44.1 Chronic obstructive pulmonary disease with (acute) exacerbation | CPT/HCPCS: 93005; 99283-25 ==

== ENCOUNTER 2019-02-04 05:54 | Inpatient (IN) | payer BC ==
[2019-02-04] MEDS: ONDANSETRON 4 MG INJ IV (07:27)
[2019-02-04] MEDS: FAMOTIDINE 20 MG INJ IV (07:27)
[2019-02-04] MEDS: LORAZEPAM 2 MG INJ IV ×3 (07:28→20:40)
[2019-02-04 07:37] LABS: ADD MAN DIFF? NO
[2019-02-04 07:41] LABS: WHITE BLOOD COUNT 12.2 10^3/ul (4.8-10.8)
[2019-02-04 07:41] LABS: ABNORMAL IP MESSAGE 1; BASOPHIL # 0.2 10^3/ul (0.0-0.1); BASOPHILS % 1.6 % (0.0-2.0); EOSINOPHILS # 0.1 10^3/ul (0.0-0.5); EOSINOPHILS % 0.6 % (0.0-7.0); HEMATOCRIT 29.3 % (42.0-52.0); HEMOGLOBIN 9.1 g/dl (14.0-18.0); LYMPHOCYTES # 0.9 10^3/ul (0.8-2.9); LYMPHOCYTES % 7.6 % (15.0-51.0); MEAN CORPUSCULAR HEMOGLOBIN 22.8 pg (29.0-33.0); MEAN CORPUSCULAR HGB CONC 31.1 g/dl (32.0-37.0); MEAN CORPUSCULAR VOLUME 73.3 fl (82.0-101.0); MONOCYTE # 1.9 10^3/ul (0.3-0.9); MONOCYTES % 15.2 % (0.0-11.0); NEUTROPHILS % 73.5 % (39.0-77.0); PLATELET COUNT 70 10^3/UL (140-415); POSITIVE DIFF @See below; RED CELL DISTRIBUTION WIDTH 23.6 % (11.5-14.5)
[2019-02-04 08:11] LABS: ALANINE AMINOTRANSFERASE 27 IU/L (13-69); ALBUMIN 3.3 g/dl (3.3-4.9); ALBUMIN/GLOBULIN RATIO 1.13; ALKALINE PHOSPHATASE 101 IU/L (42-121); AMYLASE 76 U/L (11-123); ANION GAP 14 (5-13); ASPARTATE AMINO TRANSFERASE 55 IU/L (15-46); BLOOD UREA NITROGEN 61 mg/dl (7-20); CALCIUM 8.1 mg/dl (8.4-10.2); CARBON DIOXIDE 23 mmol/L (21-31); CHLORIDE 101 mmol/L (97-110); CREATININE 1.46 mg/dl (0.61-1.24); Estimated GFR 49 mL/min (>60); GLUCOSE 85 mg/dl (70-220); LIPASE 60 U/L (23-300); POTASSIUM 3.6 mmol/L (3.5-5.1); SODIUM 138 mmol/L (135-144); TOTAL PROTEIN 6.2 g/dl (6.1-8.1)
[2019-02-04 08:26] LABS: INR 1.16; PARTIAL THROMBOPLASTIN TIME 32.7 Sec (23.0-35.0); PROTIME 14.9 Sec (11.9-14.9); PT RATIO 1.2
[2019-02-04 08:28] LABS: B-TYPE NATRIURETIC PEPTIDE 170 PG/ML (0-125); TROPONIN-I 0.045 ng/ml (0.000-0.120)
[2019-02-05] MEDS ORDERED: ONDANSETRON 4 MG INJ IV (01:30)
[2019-02-05] MEDS: LORAZEPAM 2 MG INJ IV ×3 (02:39→17:59)
[2019-02-05] MEDS ORDERED: (Nursing Note) XX (07:30)
[2019-02-05] MEDS: HYDROmorphONE 1 MG/ML SYG IV ×3 (09:12→21:56)
[2019-02-05 11:02] LABS: ADD MAN DIFF? NO
[2019-02-05 11:06] LABS: ABNORMAL IP MESSAGE 1; BASOPHIL # 0.3 10^3/ul (0.0-0.1); BASOPHILS % 2.5 % (0.0-2.0); EOSINOPHILS # 0.2 10^3/ul (0.0-0.5); EOSINOPHILS % 2.3 % (0.0-7.0); HEMATOCRIT 25.2 % (42.0-52.0); HEMOGLOBIN 7.6 g/dl (14.0-18.0); LYMPHOCYTES # 1.1 10^3/ul (0.8-2.9); LYMPHOCYTES % 10.6 % (15.0-51.0); MEAN CORPUSCULAR HEMOGLOBIN 23.5 pg (29.0-33.0); MEAN CORPUSCULAR HGB CONC 30.2 g/dl (32.0-37.0); MONOCYTE # 1.7 10^3/ul (0.3-0.9); MONOCYTES % 16.1 % (0.0-11.0); PLATELET COUNT 80 10^3/UL (140-415); POSITIVE DIFF @See below; RED BLOOD COUNT 3.23 10^6/ul (4.70-6.10); RED CELL DISTRIBUTION WIDTH 23.7 % (11.5-14.5)
[2019-02-05 11:06] LABS: WHITE BLOOD COUNT 10.5 10^3/ul (4.8-10.8)
[2019-02-05 11:26] LABS: ANION GAP 7 (5-13); BLOOD UREA NITROGEN 51 mg/dl (7-20); CALCIUM 8.2 mg/dl (8.4-10.2); CARBON DIOXIDE 27 mmol/L (21-31); CHLORIDE 106 mmol/L (97-110); CREATININE 1.57 mg/dl (0.61-1.24); Estimated GFR 45 mL/min (>60); GLUCOSE 110 mg/dl (70-220); SODIUM 140 mmol/L (135-144)
[2019-02-05] MEDS ORDERED: LORAZEPAM 1 MG TAB PO (17:30)
[2019-02-05] MEDS: SPIRONOLACTONE 25 MG TAB PO (17:53)
[2019-02-05] MEDS: BUMETANIDE 1 MG TAB PO (18:59)
[2019-02-05] MEDS: DOCUSATE SODIUM 100 MG CAP PO (21:56)
[2019-02-05] MEDS: LUBIPROSTONE 24 MCG CAP PO (21:56)
[2019-02-06] MEDS: BUMETANIDE 1 MG TAB PO ×2 (05:07→18:02)
[2019-02-06 05:43] LABS: ADD MAN DIFF? NO
[2019-02-06 05:50] LABS: WHITE BLOOD COUNT 10.9 10^3/ul (4.8-10.8)
[2019-02-06 05:50] LABS: ABNORMAL IP MESSAGE 1; BASOPHIL # 0.3 10^3/ul (0.0-0.1); BASOPHILS % 2.5 % (0.0-2.0); EOSINOPHILS # 0.2 10^3/ul (0.0-0.5); EOSINOPHILS % 2.2 % (0.0-7.0); HEMATOCRIT 26.6 % (42.0-52.0); HEMOGLOBIN 8.1 g/dl (14.0-18.0); LYMPHOCYTES # 0.9 10^3/ul (0.8-2.9); MEAN CORPUSCULAR HEMOGLOBIN 23.4 pg (29.0-33.0); MEAN CORPUSCULAR HGB CONC 30.5 g/dl (32.0-37.0); MEAN CORPUSCULAR VOLUME 76.9 fl (82.0-101.0); MONOCYTE # 1.7 10^3/ul (0.3-0.9); MONOCYTES % 15.7 % (0.0-11.0); NEUTROPHIL # 7.6 10^3/ul (1.6-7.5); PLATELET COUNT 84 10^3/UL (140-415); POSITIVE DIFF @See below; RED BLOOD COUNT 3.46 10^6/ul (4.70-6.10); RED CELL DISTRIBUTION WIDTH 23.6 % (11.5-14.5)
[2019-02-06] MEDS: LEVOTHYROXINE 100 MCG TAB PO (06:10)
[2019-02-06] MEDS: PANTOPRAZOLE (EC) 40 MG TAB PO (06:10)
[2019-02-06 06:18] LABS: ANION GAP 9 (5-13); BLOOD UREA NITROGEN 42 mg/dl (7-20); CALCIUM 8.6 mg/dl (8.4-10.2); CARBON DIOXIDE 27 mmol/L (21-31); CHLORIDE 105 mmol/L (97-110); CREATININE 1.56 mg/dl (0.61-1.24); Estimated GFR 45 mL/min (>60); GLUCOSE 95 mg/dl (70-220); POTASSIUM 3.8 mmol/L (3.5-5.1); SODIUM 141 mmol/L (135-144)
[2019-02-06] MEDS: MULTIVITAMINS 10 ML, THIAMINE 100 MG, FOLIC ACID 1 MG in SOD CHLORIDE 0.9% 1,000 ML IVPB (10:09)
[2019-02-06] MEDS: METOPROLOL (XL) 50 MG TAB PO (10:13)
[2019-02-06] MEDS: HYDROmorphONE 1 MG/ML SYG IV ×2 (10:13→14:32)
[2019-02-06] MEDS: DOCUSATE SODIUM 100 MG CAP PO ×2 (10:14→21:00)
[2019-02-06] MEDS: LUBIPROSTONE 24 MCG CAP PO ×2 (10:14→21:00)
[2019-02-06] MEDS: SPIRONOLACTONE 25 MG TAB PO (10:15)
[2019-02-06] MEDS: ALLOPURINOL 100 MG TAB PO (10:15)
[2019-02-06] MEDS: LORAZEPAM 2 MG INJ IV ×2 (11:12→18:07)
== END 2019-02-06 22:20 | disposition left against medical advice (07) | DRG 894 ==
LOC: 2NE 18:06 → E/R 05:54
DX: F10.239 Alcohol dependence with withdrawal, unspecified (principal); I13.0 Hypertensive heart and chronic kidney disease with heart failure and stage 1 through stage 4 chronic kidney disease, or unspecified chronic kidney disease; I50.32 Chronic diastolic (congestive) heart failure; N17.9 Acute kidney failure, unspecified; K92.2 Gastrointestinal hemorrhage, unspecified; K70.30 Alcoholic cirrhosis of liver without ascites; Y90.3 Blood alcohol level of 60-79 mg/100 ml; F17.210 Nicotine dependence, cigarettes, uncomplicated; N18.9 Chronic kidney disease, unspecified; E03.9 Hypothyroidism, unspecified; F10.10 Alcohol abuse, uncomplicated; J44.9 Chronic obstructive pulmonary disease, unspecified; D64.9 Anemia, unspecified; Z91.19 Patient's noncompliance with other medical treatment and regimen
CPT/HCPCS: 80048; 80053; 80307; 82150; 83690; 83880; 84484; 85025; 85610; 85730; 87081; 93005; 96374; 96375; 96376; 99285-25

== ENCOUNTER 2019-03-01 08:55 | Inpatient (IN) | payer BC ==
[2019-03-01 10:11] LABS: ADD MAN DIFF? NO
[2019-03-01 10:15] LABS: ABNORMAL IP MESSAGE 1; BASOPHIL # 0.4 10^3/ul (0.0-0.1); BASOPHILS % 2.5 % (0.0-2.0); EOSINOPHILS # 0.3 10^3/ul (0.0-0.5); EOSINOPHILS % 2.4 % (0.0-7.0); LYMPHOCYTES # 1.2 10^3/ul (0.8-2.9); LYMPHOCYTES % 8.6 % (15.0-51.0); MEAN CORPUSCULAR HEMOGLOBIN 23.7 pg (29.0-33.0); MEAN CORPUSCULAR HGB CONC 29.6 g/dl (32.0-37.0); MEAN CORPUSCULAR VOLUME 79.9 fl (82.0-101.0); MONOCYTES % 14.2 % (0.0-11.0); NEUTROPHIL # 9.9 10^3/ul (1.6-7.5); NEUTROPHILS % 71.4 % (39.0-77.0); PLATELET COUNT 127 10^3/UL (140-415); POSITIVE DIFF @See below; RED BLOOD COUNT 3.38 10^6/ul (4.70-6.10); RED CELL DISTRIBUTION WIDTH 22.2 % (11.5-14.5)
[2019-03-01 10:15] LABS: WHITE BLOOD COUNT 13.9 10^3/ul (4.8-10.8)
[2019-03-01 10:37] LABS: INR 1.09; PROTIME 14.2 Sec (11.9-14.9); PT RATIO 1.1
[2019-03-01 10:46] LABS: ALANINE AMINOTRANSFERASE 22 IU/L (13-69); ALBUMIN 3.1 g/dl (3.3-4.9); ALBUMIN/GLOBULIN RATIO 1.03; ALKALINE PHOSPHATASE 130 IU/L (42-121); ANION GAP 12 (5-13); ASPARTATE AMINO TRANSFERASE 43 IU/L (15-46); BILIRUBIN,INDIRECT 0.4 mg/dl (0-1.1); BILIRUBIN,TOTAL 0.4 mg/dl (0.2-1.3); BLOOD UREA NITROGEN 43 mg/dl (7-20); CALCIUM 7.8 mg/dl (8.4-10.2); CARBON DIOXIDE 22 mmol/L (21-31); CHLORIDE 106 mmol/L (97-110); CREATININE 1.64 mg/dl (0.61-1.24); Estimated GFR 43 mL/min (>60); GLUCOSE 131 mg/dl (70-220); POTASSIUM 3.7 mmol/L (3.5-5.1); SODIUM 140 mmol/L (135-144); TOTAL PROTEIN 6.1 g/dl (6.1-8.1)
[2019-03-01 10:55] LABS: B-TYPE NATRIURETIC PEPTIDE 135 PG/ML (0-125); TROPONIN-I < 0.012 ng/ml (0.000-0.120)
[2019-03-01] MEDS: ALBUTEROL 0.083% (NEB) 2.5 MG/3 ML AMP INH (12:03)
[2019-03-01] MEDS: IPRATROPIUM (NEB) 0.5 MG/2.5 ML AMP INH (12:03)
[2019-03-01] MEDS: ONDANSETRON (ODT) 4 MG TAB ODT (12:24)
[2019-03-01] MEDS ORDERED: ONDANSETRON 4 MG INJ IV (12:30)
[2019-03-01] MEDS ORDERED: ACETAMINOPHEN 325 MG TAB PO (12:30)
[2019-03-01] MEDS: METHYLPREDNISOLONE 125 MG INJ IV (13:04)
[2019-03-01] MEDS: AZITHROMYCIN 500MG/NS (PMX) 250 ML IV (13:05)
[2019-03-01] MEDS: LORAZEPAM 2 MG INJ IV ×2 (13:39→22:34)
[2019-03-01 14:03] LABS: B-TYPE NATRIURETIC PEPTIDE 135 PG/ML (0-125)
[2019-03-01] MEDS ORDERED: LORAZEPAM 1 MG TAB PO (15:30)
[2019-03-01] MEDS ORDERED: ACETAMINOPHEN 500 MG TAB PO (15:30)
[2019-03-01] MEDS: BUMETANIDE 1 MG TAB PO (17:34)
[2019-03-01] MEDS: MULTIVITAMINS 10 ML, THIAMINE 100 MG, FOLIC ACID 1 MG in SOD CHLORIDE 0.9% 1,000 ML IVPB (17:34)
[2019-03-01] MEDS: LUBIPROSTONE 24 MCG CAP PO (20:36)
[2019-03-01] MEDS: DOCUSATE SODIUM 100 MG CAP PO (20:36)
[2019-03-01] MEDS: ALBUTEROL HFA 8 GM INHALER INH ×2 (21:00→22:57)
[2019-03-01] MEDS: HYDROmorphONE 1 MG/ML SYG IV (22:33)
[2019-03-02] MEDS: ALBUTEROL HFA 8 GM INHALER INH ×6 (01:00→20:57)
[2019-03-02] MEDS: HYDROmorphONE 1 MG/ML SYG IV ×5 (03:00→22:59)
[2019-03-02] MEDS: LORAZEPAM 2 MG INJ IV ×5 (03:01→22:58)
[2019-03-02] MEDS: BUMETANIDE 1 MG TAB PO ×2 (06:00→17:45)
[2019-03-02] MEDS: LEVOTHYROXINE 100 MCG TAB PO (07:15)
[2019-03-02] MEDS: PANTOPRAZOLE (EC) 40 MG TAB PO (07:15)
[2019-03-02] MEDS: SPIRONOLACTONE 25 MG TAB PO (08:20)
[2019-03-02] MEDS: DOCUSATE SODIUM 100 MG CAP PO ×2 (08:20→21:00)
[2019-03-02] MEDS: ALLOPURINOL 100 MG TAB PO (08:20)
[2019-03-02] MEDS: FOLIC ACID 1 MG TAB PO (08:20)
[2019-03-02] MEDS: LUBIPROSTONE 24 MCG CAP PO ×2 (08:20→20:57)
[2019-03-02 08:35] LABS: ADD MAN DIFF? NO
[2019-03-02 08:38] LABS: ABNORMAL IP MESSAGE 1; BASOPHILS % 0.2 % (0.0-2.0); EOSINOPHILS % 0.1 % (0.0-7.0); HEMOGLOBIN 7.6 g/dl (14.0-18.0); LYMPHOCYTES # 0.4 10^3/ul (0.8-2.9); LYMPHOCYTES % 2.9 % (15.0-51.0); MEAN CORPUSCULAR HEMOGLOBIN 23.8 pg (29.0-33.0); MEAN CORPUSCULAR HGB CONC 29.2 g/dl (32.0-37.0); MEAN CORPUSCULAR VOLUME 81.3 fl (82.0-101.0); MONOCYTE # 0.6 10^3/ul (0.3-0.9); MONOCYTES % 4.6 % (0.0-11.0); NEUTROPHIL # 12.3 10^3/ul (1.6-7.5); NEUTROPHILS % 90.7 % (39.0-77.0); PLATELET COUNT 107 10^3/UL (140-415); POSITIVE DIFF @See below; RED CELL DISTRIBUTION WIDTH 21.7 % (11.5-14.5)
[2019-03-02 08:38] LABS: WHITE BLOOD COUNT 13.6 10^3/ul (4.8-10.8)
[2019-03-02 08:57] LABS: CHOL/HDL RATIO 2.4 RATIO; HDL CHOLESTEROL 52 mg/dl (30-78); LDL CHOLESTEROL,CALCULATED 70 mg/dl; TRIGLYCERIDES 37 mg/dl (0-149)
[2019-03-02 08:57] LABS: CHOLESTEROL 129 mg/dl (100-200)
[2019-03-02 08:58] LABS: ANION GAP 11 (5-13); BLOOD UREA NITROGEN 44 mg/dl (7-20); CALCIUM 7.7 mg/dl (8.4-10.2); CARBON DIOXIDE 22 mmol/L (21-31); CHLORIDE 102 mmol/L (97-110); CREATININE 1.51 mg/dl (0.61-1.24); Estimated GFR 47 mL/min (>60); GLUCOSE 148 mg/dl (70-220); POTASSIUM 3.9 mmol/L (3.5-5.1); SODIUM 135 mmol/L (135-144)
[2019-03-02] MEDS: AZITHROMYCIN 500MG/NS (PMX) 250 ML IVPB (12:34)
[2019-03-02] MEDS: ALBUTEROL/IPRATROPIUM (NEB) 3 ML AMP HHN ×2 (13:37→20:00)
[2019-03-02] MEDS: METHYLPREDNISOLONE 40 MG INJ IV (20:57)
[2019-03-03] MEDS: ALBUTEROL HFA 8 GM INHALER INH ×6 (01:09→23:11)
[2019-03-03] MEDS: BUMETANIDE 1 MG TAB PO ×2 (05:17→18:24)
[2019-03-03] MEDS: LORAZEPAM 2 MG INJ IV ×4 (05:19→18:32)
[2019-03-03] MEDS: HYDROmorphONE 1 MG/ML SYG IV ×5 (05:20→23:06)
[2019-03-03 05:44] LABS: ADD MAN DIFF? NO
[2019-03-03 05:52] LABS: ABNORMAL IP MESSAGE 1; BASOPHILS % 0.2 % (0.0-2.0); HEMOGLOBIN 7.5 g/dl (14.0-18.0); LYMPHOCYTES # 0.3 10^3/ul (0.8-2.9); LYMPHOCYTES % 2.4 % (15.0-51.0); MEAN CORPUSCULAR HEMOGLOBIN 23.8 pg (29.0-33.0); MEAN CORPUSCULAR HGB CONC 28.8 g/dl (32.0-37.0); MEAN CORPUSCULAR VOLUME 82.5 fl (82.0-101.0); MEAN PLATELET VOLUME 11.8 fl (7.4-10.4); MONOCYTE # 0.5 10^3/ul (0.3-0.9); MONOCYTES % 4.4 % (0.0-11.0); NEUTROPHIL # 11.2 10^3/ul (1.6-7.5); NEUTROPHILS % 91.3 % (39.0-77.0); PLATELET COUNT 111 10^3/UL (140-415); POSITIVE DIFF @See below; RED BLOOD COUNT 3.15 10^6/ul (4.70-6.10); RED CELL DISTRIBUTION WIDTH 21.7 % (11.5-14.5)
[2019-03-03 05:52] LABS: WHITE BLOOD COUNT 12.2 10^3/ul (4.8-10.8)
[2019-03-03 06:03] LABS: ANION GAP 12 (5-13); BLOOD UREA NITROGEN 38 mg/dl (7-20); CALCIUM 7.7 mg/dl (8.4-10.2); CARBON DIOXIDE 20 mmol/L (21-31); CHLORIDE 102 mmol/L (97-110); CREATININE 1.44 mg/dl (0.61-1.24); Estimated GFR 50 mL/min (>60); GLUCOSE 157 mg/dl (70-220); POTASSIUM 3.2 mmol/L (3.5-5.1); SODIUM 134 mmol/L (135-144)
[2019-03-03 06:06] LABS: ALANINE AMINOTRANSFERASE 25 IU/L (13-69); ALBUMIN 2.9 g/dl (3.3-4.9); ALKALINE PHOSPHATASE 98 IU/L (42-121); ASPARTATE AMINO TRANSFERASE 27 IU/L (15-46); BILIRUBIN,INDIRECT 0.3 mg/dl (0-1.1); BILIRUBIN,TOTAL 0.3 mg/dl (0.2-1.3); TOTAL PROTEIN 5.7 g/dl (6.1-8.1)
[2019-03-03 06:16] LABS: LIPASE 330 U/L (23-300)
[2019-03-03] MEDS: PANTOPRAZOLE (EC) 40 MG TAB PO (06:34)
[2019-03-03] MEDS: LEVOTHYROXINE 100 MCG TAB PO (06:34)
[2019-03-03] MEDS: ALBUTEROL/IPRATROPIUM (NEB) 3 ML AMP HHN ×3 (07:48→20:00)
[2019-03-03] MEDS: METHYLPREDNISOLONE 40 MG INJ IV ×2 (09:58→20:31)
[2019-03-03] MEDS: SPIRONOLACTONE 25 MG TAB PO (09:58)
[2019-03-03] MEDS: DOCUSATE SODIUM 100 MG CAP PO ×2 (09:58→20:31)
[2019-03-03] MEDS: FOLIC ACID 1 MG TAB PO (09:58)
[2019-03-03] MEDS: AZITHROMYCIN 500MG/NS (PMX) 250 ML IVPB (09:58)
[2019-03-03] MEDS: ALLOPURINOL 100 MG TAB PO (09:58)
[2019-03-03] MEDS: LUBIPROSTONE 24 MCG CAP PO ×2 (09:58→20:32)
[2019-03-03] MEDS: METOPROLOL 50 MG TAB PO ×2 (14:15→20:33)
[2019-03-03] MEDS: POTASSIUM CHLORIDE 100 ML IVPB (14:15)
[2019-03-03] MEDS: POTASSIUM CHLORIDE (SR) 20 MEQ TAB PO (20:31)
[2019-03-04] MEDS: ALBUTEROL HFA 8 GM INHALER INH ×3 (01:00→06:13)
[2019-03-04] MEDS: LORAZEPAM 2 MG INJ IV (03:40)
[2019-03-04] MEDS: HYDROmorphONE 1 MG/ML SYG IV ×2 (03:44→08:38)
[2019-03-04] MEDS: BUMETANIDE 1 MG TAB PO (06:16)
[2019-03-04] MEDS: PANTOPRAZOLE (EC) 40 MG TAB PO (06:16)
[2019-03-04] MEDS: LEVOTHYROXINE 100 MCG TAB PO (06:16)
[2019-03-04] MEDS: METHYLPREDNISOLONE 40 MG INJ IV (08:36)
[2019-03-04] MEDS: FOLIC ACID 1 MG TAB PO (08:37)
[2019-03-04] MEDS: POTASSIUM CHLORIDE (SR) 20 MEQ TAB PO (08:37)
[2019-03-04] MEDS: THIAMINE 100 MG TAB PO (08:37)
[2019-03-04] MEDS: DOCUSATE SODIUM 100 MG CAP PO (08:37)
[2019-03-04] MEDS: ALLOPURINOL 100 MG TAB PO (08:37)
[2019-03-04] MEDS: LUBIPROSTONE 24 MCG CAP PO (08:37)
[2019-03-04] MEDS: SPIRONOLACTONE 25 MG TAB PO (08:37)
[2019-03-04] MEDS: MULTIVITAMINS THERAPEUTIC TAB PO (08:37)
[2019-03-04] MEDS: METOPROLOL 50 MG TAB PO (08:38)
[2019-03-04] MEDS: ALBUTEROL/IPRATROPIUM (NEB) 3 ML AMP HHN (08:50)
[2019-03-04] MEDS: AZITHROMYCIN 500MG/NS (PMX) 250 ML IVPB (11:34)
[2019-03-04 12:24] LABS: ANION GAP 8 (5-13); BLOOD UREA NITROGEN 45 mg/dl (7-20); CALCIUM 8.3 mg/dl (8.4-10.2); CARBON DIOXIDE 27 mmol/L (21-31); CHLORIDE 101 mmol/L (97-110); CREATININE 1.48 mg/dl (0.61-1.24); Estimated GFR 48 mL/min (>60); GLUCOSE 110 mg/dl (70-220); POTASSIUM 4.2 mmol/L (3.5-5.1); SODIUM 136 mmol/L (135-144)
== END 2019-03-04 12:52 | disposition left against medical advice (07) | DRG 432 ==
LOC: 6WM 03-02 18:10 → E/R 08:55 → 6WM 12:05
PROVIDERS: Internal Medicine
DX: K70.30 Alcoholic cirrhosis of liver without ascites (principal); K76.7 Hepatorenal syndrome; I50.33 Acute on chronic diastolic (congestive) heart failure; I13.0 Hypertensive heart and chronic kidney disease with heart failure and stage 1 through stage 4 chronic kidney disease, or unspecified chronic kidney disease; N17.9 Acute kidney failure, unspecified; J44.0 Chronic obstructive pulmonary disease with (acute) lower respiratory infection; J44.1 Chronic obstructive pulmonary disease with (acute) exacerbation; J20.9 Acute bronchitis, unspecified; F10.10 Alcohol abuse, uncomplicated; N18.9 Chronic kidney disease, unspecified; D63.1 Anemia in chronic kidney disease; I87.8 Other specified disorders of veins; N40.0 Benign prostatic hyperplasia without lower urinary tract symptoms; E03.9 Hypothyroidism, unspecified; F17.200 Nicotine dependence, unspecified, uncomplicated; Z91.19 Patient's noncompliance with other medical treatment and regimen
CPT/HCPCS: 71045; 80048; 80053; 80061; 80076; 83690; 83880; 84484; 85025; 85610; 93005; 94640; 94664; 99285-25; G0378

== ENCOUNTER 2019-03-18 21:40 | Inpatient (IN) | payer BC ==
[2019-03-18] MEDS: ALBUTEROL 0.083% (NEB) 2.5 MG/3 ML AMP INH (22:50)
[2019-03-18] MEDS: IPRATROPIUM (NEB) 0.5 MG/2.5 ML AMP INH (22:50)
[2019-03-18] MEDS: HYDROmorphONE 2 MG/ML SYG IV (23:14)
[2019-03-18] MEDS: ONDANSETRON 4 MG INJ IV (23:14)
[2019-03-18] MEDS: LORAZEPAM 2 MG INJ IV (23:14)
[2019-03-18 23:16] LABS: ADD MAN DIFF? NO
[2019-03-18 23:17] LABS: WHITE BLOOD COUNT 18.4 10^3/ul (4.8-10.8)
[2019-03-18 23:17] LABS: ABNORMAL IP MESSAGE 1; BASOPHIL # 0.6 10^3/ul (0.0-0.1); BASOPHILS % 3.2 % (0.0-2.0); EOSINOPHILS # 0.2 10^3/ul (0.0-0.5); EOSINOPHILS % 1.3 % (0.0-7.0); HEMATOCRIT 30.5 % (42.0-52.0); HEMOGLOBIN 8.6 g/dl (14.0-18.0); MEAN CORPUSCULAR HEMOGLOBIN 21.2 pg (29.0-33.0); MEAN CORPUSCULAR HGB CONC 28.2 g/dl (32.0-37.0); MEAN CORPUSCULAR VOLUME 75.3 fl (82.0-101.0); MONOCYTE # 3.4 10^3/ul (0.3-0.9); MONOCYTES % 18.3 % (0.0-11.0); NEUTROPHILS % 65.1 % (39.0-77.0); PLATELET COUNT 292 10^3/UL (140-415); POSITIVE DIFF @See below; RED BLOOD COUNT 4.05 10^6/ul (4.70-6.10); RED CELL DISTRIBUTION WIDTH 20.9 % (11.5-14.5)
[2019-03-18] MEDS: metroNIDAZOLE 500 MG/NS (PMX) 100 ML IVPB (23:17)
[2019-03-18 23:36] LABS: INR 1.16; PROTIME 14.9 Sec (11.9-14.9); PT RATIO 1.2
[2019-03-18 23:37] LABS: PARTIAL THROMBOPLASTIN TIME 32.3 Sec (23.0-35.0)
[2019-03-18 23:38] LABS: ALANINE AMINOTRANSFERASE 26 IU/L (13-69); ALBUMIN 3.6 g/dl (3.3-4.9); ALBUMIN/GLOBULIN RATIO 1.12; ALKALINE PHOSPHATASE 126 IU/L (42-121); ANION GAP 12 (5-13); ASPARTATE AMINO TRANSFERASE 31 IU/L (15-46); BILIRUBIN,INDIRECT 0.5 mg/dl (0-1.1); BILIRUBIN,TOTAL 0.5 mg/dl (0.2-1.3); BLOOD UREA NITROGEN 22 mg/dl (7-20); CALCIUM 7.7 mg/dl (8.4-10.2); CARBON DIOXIDE 22 mmol/L (21-31); CHLORIDE 105 mmol/L (97-110); CREATININE 1.45 mg/dl (0.61-1.24); Estimated GFR 49 mL/min (>60); GLUCOSE 100 mg/dl (70-220); POTASSIUM 3.6 mmol/L (3.5-5.1); SODIUM 139 mmol/L (135-144); TOTAL PROTEIN 6.8 g/dl (6.1-8.1)
[2019-03-18 23:50] LABS: B-TYPE NATRIURETIC PEPTIDE 239 PG/ML (0-125); TROPONIN-I < 0.012 ng/ml (0.000-0.120)
[2019-03-18] MEDS: LEVOFLOXACIN 750MG/D5W (PMX) 150 ML IVPB (23:50)
[2019-03-19] MEDS: VANCOMYCIN 1 GM (PMX) 250 ML IVPB (00:16)
[2019-03-19] MEDS ORDERED: ACETAMINOPHEN 325 MG TAB PO (01:00)
[2019-03-19] MEDS ORDERED: ONDANSETRON 4 MG INJ IV ×2 (01:00→04:30)
[2019-03-19 01:25] LABS: LACTIC ACID 2.3 mmol/L (0.5-2.0)
[2019-03-19] MEDS: LORAZEPAM 2 MG INJ IV ×3 (02:36→18:11)
[2019-03-19 04:17] LABS: LACTIC ACID 2.6 mmol/L (0.5-2.0)
[2019-03-19] MEDS: HYDROmorphONE 1 MG/ML SYG IV ×4 (06:14→23:05)
[2019-03-19] MEDS: FUROSEMIDE 20 MG INJ IV ×2 (06:15→18:12)
[2019-03-19] MEDS: POTASSIUM CHLORIDE (SR) 20 MEQ TAB PO (08:55)
[2019-03-19] MEDS ORDERED: oxyCODONE (CR) 10 MG TAB [oxyCONTIN] PO (10:30)
[2019-03-19] MEDS: ALBUTEROL 18 GM INHALER INH ×3 (12:00→20:00)
[2019-03-19] MEDS: METOPROLOL (XL) 50 MG TAB PO (13:21)
[2019-03-19] MEDS: FOLIC ACID 1 MG TAB PO (13:21)
[2019-03-19] MEDS: SPIRONOLACTONE 25 MG TAB PO (13:21)
[2019-03-19] MEDS: ALLOPURINOL 100 MG TAB PO (13:21)
[2019-03-19] MEDS: DIGOXIN 500 MCG INJ IV (13:22)
[2019-03-19] MEDS: oxyCODONE 5 MG TAB PO (13:29)
[2019-03-19 13:37] LABS: B-TYPE NATRIURETIC PEPTIDE 209 PG/ML (0-125)
[2019-03-19] MEDS: CEFAZOLIN 2 GM/50 ML (PMX) 50 ML IVPB ×2 (14:29→21:30)
[2019-03-19 18:49] LABS: CREATINE KINASE 39 IU/L (23-200)
[2019-03-19 19:02] LABS: CK INDEX 3.9; CK-MB 1.51 ng/ml (0.0-2.4); TROPONIN-I < 0.012 ng/ml (0.000-0.120)
[2019-03-19] MEDS: DOCUSATE SODIUM 100 MG CAP PO (21:30)
[2019-03-19] MEDS: LUBIPROSTONE 24 MCG CAP PO (21:30)
[2019-03-19] MEDS: LORAZEPAM 1 MG TAB PO (23:05)
[2019-03-19] MEDS: LEVOFLOXACIN 500MG/D5W (PMX) 100 ML IVPB (23:48)
[2019-03-20 01:37] LABS: CREATINE KINASE 75 IU/L (23-200)
[2019-03-20 01:51] LABS: CK INDEX 1.8; CK-MB 1.36 ng/ml (0.0-2.4); TROPONIN-I 0.019 ng/ml (0.000-0.120)
[2019-03-20] MEDS: ALBUTEROL 18 GM INHALER INH ×7 (04:00→23:54)
[2019-03-20] MEDS: CEFAZOLIN 2 GM/50 ML (PMX) 50 ML IVPB ×3 (05:45→21:16)
[2019-03-20] MEDS: FUROSEMIDE 20 MG INJ IV ×2 (05:46→17:28)
[2019-03-20 06:19] LABS: CK INDEX 2.5; CK-MB 1.34 ng/ml (0.0-2.4); CREATINE KINASE 54 IU/L (23-200); TROPONIN-I < 0.012 ng/ml (0.000-0.120)
[2019-03-20] MEDS: PANTOPRAZOLE (EC) 40 MG TAB PO (06:39)
[2019-03-20] MEDS: LEVOTHYROXINE 100 MCG TAB PO (06:40)
[2019-03-20] MEDS: HYDROmorphONE 1 MG/ML SYG IV ×5 (06:46→23:55)
[2019-03-20] MEDS: DILTIAZEM 25 MG INJ IV ×2 (06:58→12:57)
[2019-03-20] MEDS: LUBIPROSTONE 24 MCG CAP PO ×2 (08:41→20:06)
[2019-03-20] MEDS: DOCUSATE SODIUM 100 MG CAP PO ×2 (08:41→20:06)
[2019-03-20] MEDS: LORAZEPAM 2 MG INJ IV ×2 (08:41→17:39)
[2019-03-20] MEDS: SPIRONOLACTONE 25 MG TAB PO (08:42)
[2019-03-20] MEDS: FOLIC ACID 1 MG TAB PO (08:42)
[2019-03-20] MEDS: POTASSIUM CHLORIDE (SR) 20 MEQ TAB PO (08:42)
[2019-03-20] MEDS: ALLOPURINOL 100 MG TAB PO (08:42)
[2019-03-20] MEDS: METOPROLOL (XL) 50 MG TAB PO ×2 (08:43→20:07)
[2019-03-20] MEDS: LORAZEPAM 1 MG TAB PO (23:01)
[2019-03-20] MEDS: LEVOFLOXACIN 500MG/D5W (PMX) 100 ML IVPB (23:02)
[2019-03-21] MEDS: HYDROmorphONE 1 MG/ML SYG IV ×5 (04:12→21:38)
[2019-03-21] MEDS: ALBUTEROL 18 GM INHALER INH ×6 (04:13→23:57)
[2019-03-21] MEDS: FUROSEMIDE 20 MG INJ IV ×2 (05:15→17:33)
[2019-03-21] MEDS: LORAZEPAM 2 MG INJ IV ×3 (05:15→18:49)
[2019-03-21] MEDS: CEFAZOLIN 2 GM/50 ML (PMX) 50 ML IVPB ×3 (05:16→21:38)
[2019-03-21] MEDS: oxyCODONE 5 MG TAB PO ×2 (05:16→18:49)
[2019-03-21 06:15] LABS: ADD MAN DIFF? NO
[2019-03-21 06:42] LABS: ANION GAP 8 (5-13); BLOOD UREA NITROGEN 25 mg/dl (7-20); CALCIUM 7.7 mg/dl (8.4-10.2); CARBON DIOXIDE 23 mmol/L (21-31); CHLORIDE 101 mmol/L (97-110); CREATININE 1.47 mg/dl (0.61-1.24); Estimated GFR 49 mL/min (>60); GLUCOSE 116 mg/dl (70-220); POTASSIUM 4.4 mmol/L (3.5-5.1); SODIUM 132 mmol/L (135-144)
[2019-03-21 07:41] LABS: WHITE BLOOD COUNT 12.7 10^3/ul (4.8-10.8)
[2019-03-21 07:41] LABS: ABNORMAL IP MESSAGE 1; BASOPHIL # 0.1 10^3/ul (0.0-0.1); BASOPHILS % 0.9 % (0.0-2.0); EOSINOPHILS # 0.2 10^3/ul (0.0-0.5); EOSINOPHILS % 1.3 % (0.0-7.0); HEMATOCRIT 27.5 % (42.0-52.0); HEMOGLOBIN 7.7 g/dl (14.0-18.0); LYMPHOCYTES # 0.7 10^3/ul (0.8-2.9); LYMPHOCYTES % 5.1 % (15.0-51.0); MEAN CORPUSCULAR HEMOGLOBIN 21.6 pg (29.0-33.0); MEAN PLATELET VOLUME 11.2 fl (7.4-10.4); MONOCYTE # 3.4 10^3/ul (0.3-0.9); MONOCYTES % 27.1 % (0.0-11.0); NEUTROPHIL # 8.2 10^3/ul (1.6-7.5); NEUTROPHILS % 64.7 % (39.0-77.0); NUCLEATED RED BLOOD CELLS% 0.2 /100WBC (0.0-0.0); PLATELET COUNT 151 10^3/UL (140-415); POSITIVE DIFF @See below; RED BLOOD COUNT 3.57 10^6/ul (4.70-6.10); RED CELL DISTRIBUTION WIDTH 20.5 % (11.5-14.5)
[2019-03-21] MEDS: PANTOPRAZOLE (EC) 40 MG TAB PO (07:50)
[2019-03-21] MEDS: LEVOTHYROXINE 100 MCG TAB PO (07:50)
[2019-03-21] MEDS: FOLIC ACID 1 MG TAB PO (08:37)
[2019-03-21] MEDS: SPIRONOLACTONE 25 MG TAB PO (08:37)
[2019-03-21] MEDS: METOPROLOL (XL) 50 MG TAB PO ×2 (08:37→21:19)
[2019-03-21] MEDS: LUBIPROSTONE 24 MCG CAP PO ×2 (08:37→21:19)
[2019-03-21] MEDS: ALLOPURINOL 100 MG TAB PO (08:37)
[2019-03-21] MEDS: DOCUSATE SODIUM 100 MG CAP PO ×2 (08:37→21:18)
[2019-03-21] MEDS: POTASSIUM CHLORIDE (SR) 20 MEQ TAB PO (08:37)
[2019-03-21] MEDS: LACTULOSE 30ML CUP PO (13:27)
[2019-03-21] MEDS: LEVOFLOXACIN 500MG/D5W (PMX) 100 ML IVPB (22:44)
[2019-03-22] MEDS: LORAZEPAM 1 MG TAB PO (01:19)
[2019-03-22] MEDS: HYDROmorphONE 1 MG/ML SYG IV (02:13)
== END 2019-03-22 03:45 | disposition left against medical advice (07) | DRG 291 ==
LOC: E/R 21:40 → 6WM 03-19 02:44
DX: I13.0 Hypertensive heart and chronic kidney disease with heart failure and stage 1 through stage 4 chronic kidney disease, or unspecified chronic kidney disease (principal); I50.33 Acute on chronic diastolic (congestive) heart failure; D72.829 Elevated white blood cell count, unspecified; F17.200 Nicotine dependence, unspecified, uncomplicated; J44.9 Chronic obstructive pulmonary disease, unspecified; J40 Bronchitis, not specified as acute or chronic; K70.31 Alcoholic cirrhosis of liver with ascites; K08.89 Other specified disorders of teeth and supporting structures; N18.9 Chronic kidney disease, unspecified; R00.0 Tachycardia, unspecified; R94.31 Abnormal electrocardiogram [ECG] [EKG]
CPT/HCPCS: 36415; 71045; 80048; 80053; 82550; 82553; 83605; 83880; 84443; 84484; 85025; 85610; 85730; 87040-91; 93005; 94664; 96374; 96375; 99285-25

== ENCOUNTER 2019-03-22 08:07 | Emergency (ER) | payer BC | END 2019-03-22 09:54 | disposition home or self-care (01) | LOC: E/R 08:07 | DX: K08.89 Other specified disorders of teeth and supporting structures (principal); F41.9 Anxiety disorder, unspecified | CPT/HCPCS: 99281 ==

== ENCOUNTER 2019-04-18 11:55 | Emergency (ER) | payer BC ==
[2019-04-18] MEDS: HYDROCODONE/APAP (10/325) TAB PO (13:02)
[2019-04-18] MEDS: BACITRACIN 0.5%/ZINC 28.35 GM OINT TOP (13:30)
== END 2019-04-18 14:15 | disposition home or self-care (01) ==
LOC: E/R 11:55
DX: S81.801A Unspecified open wound, right lower leg, initial encounter (principal); I11.0 Hypertensive heart disease with heart failure; I50.9 Heart failure, unspecified; J44.9 Chronic obstructive pulmonary disease, unspecified; F17.210 Nicotine dependence, cigarettes, uncomplicated; X58.XXXA Exposure to other specified factors, initial encounter; Y92.9 Unspecified place or not applicable
CPT/HCPCS: 99283

== ENCOUNTER 2019-04-25 20:35 | Inpatient (IN) | payer BC ==
[2019-04-25 22:48] LABS: ADD MAN DIFF? NO
[2019-04-25 22:50] LABS: WHITE BLOOD COUNT 12.7 10^3/ul (4.8-10.8)
[2019-04-25 22:50] LABS: ABNORMAL IP MESSAGE 1; BASOPHIL # 0.3 10^3/ul (0.0-0.1); BASOPHILS % 2.2 % (0.0-2.0); EOSINOPHILS # 0.2 10^3/ul (0.0-0.5); EOSINOPHILS % 1.6 % (0.0-7.0); HEMATOCRIT 25.8 % (42.0-52.0); HEMOGLOBIN 7.5 g/dl (14.0-18.0); LYMPHOCYTES # 1.6 10^3/ul (0.8-2.9); LYMPHOCYTES % 12.9 % (15.0-51.0); MEAN CORPUSCULAR HEMOGLOBIN 19.5 pg (29.0-33.0); MEAN CORPUSCULAR HGB CONC 29.1 g/dl (32.0-37.0); MONOCYTE # 2.5 10^3/ul (0.3-0.9); MONOCYTES % 19.9 % (0.0-11.0); NEUTROPHILS % 62.8 % (39.0-77.0); PLATELET COUNT 148 10^3/UL (140-415); POSITIVE DIFF @See below; RED BLOOD COUNT 3.85 10^6/ul (4.70-6.10); RED CELL DISTRIBUTION WIDTH 25.8 % (11.5-14.5)
[2019-04-25] MEDS: HYDROCODONE/APAP (10/325) TAB PO (22:57)
[2019-04-25 23:07] LABS: ALANINE AMINOTRANSFERASE 28 IU/L (13-69); ALBUMIN 2.8 g/dl (3.3-4.9); ALBUMIN/GLOBULIN RATIO 0.84; ALKALINE PHOSPHATASE 128 IU/L (42-121); ANION GAP 9 (5-13); ASPARTATE AMINO TRANSFERASE 43 IU/L (15-46); BILIRUBIN,INDIRECT 0.3 mg/dl (0-1.1); BILIRUBIN,TOTAL 0.3 mg/dl (0.2-1.3); BLOOD UREA NITROGEN 13 mg/dl (7-20); CALCIUM 7.3 mg/dl (8.4-10.2); CARBON DIOXIDE 26 mmol/L (21-31); CHLORIDE 102 mmol/L (97-110); CREATININE 1.63 mg/dl (0.61-1.24); Estimated GFR 43 mL/min (>60); GLUCOSE 94 mg/dl (70-220); POTASSIUM 3.6 mmol/L (3.5-5.1); SODIUM 137 mmol/L (135-144); TOTAL PROTEIN 6.1 g/dl (6.1-8.1)
[2019-04-25 23:09] LABS: INR 1.06; PROTIME 13.9 Sec (11.9-14.9); PT RATIO 1.1
[2019-04-25 23:17] LABS: PARTIAL THROMBOPLASTIN TIME 31.5 Sec (23.0-35.0)
[2019-04-25 23:19] LABS: B-TYPE NATRIURETIC PEPTIDE 533 PG/ML (0-125); TROPONIN-I < 0.012 ng/ml (0.000-0.120)
[2019-04-26] MEDS ORDERED: ACETAMINOPHEN 325 MG TAB PO
[2019-04-26] MEDS ORDERED: ONDANSETRON 4 MG INJ IV
[2019-04-26] MEDS: CLINDAMYCIN 600 MG/D5W (PMX) 50 ML IVPB ×2 (00:02→06:24)
[2019-04-26] MEDS ORDERED: LORAZEPAM 1 MG TAB PO (00:30)
[2019-04-26] MEDS ORDERED: ALBUTEROL HFA 8 GM INHALER INH (00:30)
[2019-04-26] MEDS ORDERED: oxyCODONE (CR) 10 MG TAB [oxyCONTIN] PO ×2 (00:30→04:00)
[2019-04-26] MEDS: HYDROmorphONE 1 MG/ML SYG IV ×3 (02:00→11:26)
[2019-04-26 02:45] LABS: LACTIC ACID 1.4 mmol/L (0.5-2.0)
[2019-04-26] MEDS: oxyCODONE 5 MG TAB PO (04:33)
[2019-04-26] MEDS: BUMETANIDE 1 MG TAB PO (06:17)
[2019-04-26] MEDS: PANTOPRAZOLE (EC) 40 MG TAB PO (06:17)
[2019-04-26] MEDS: LEVOTHYROXINE 100 MCG TAB PO (06:17)
[2019-04-26 06:52] LABS: LACTIC ACID 2.5 mmol/L (0.5-2.0)
[2019-04-26] MEDS: LUBIPROSTONE 24 MCG CAP PO (08:56)
[2019-04-26] MEDS: METOPROLOL (XL) 50 MG TAB PO (08:56)
[2019-04-26] MEDS: FOLIC ACID 1 MG TAB PO (08:56)
[2019-04-26] MEDS: ALLOPURINOL 100 MG TAB PO (08:57)
[2019-04-26] MEDS: SPIRONOLACTONE 25 MG TAB PO (08:57)
[2019-04-26] MEDS: DOCUSATE SODIUM 100 MG CAP PO (08:57)
[2019-04-26] MEDS ORDERED: NON-FORMULARY/PATIENT OWN MED (Bumetanide* 2 MG) PO (09:00)
[2019-04-26] MEDS: DEXTROSE 5%-0.45% NACL 1,000 ML IV (11:26)
== END 2019-04-26 13:00 | disposition left against medical advice (07) | DRG 872 ==
LOC: E/R 20:35 → MS3 04-26 00:12
DX: A41.9 Sepsis, unspecified organism (principal); L03.116 Cellulitis of left lower limb; L03.115 Cellulitis of right lower limb; N17.9 Acute kidney failure, unspecified; I13.0 Hypertensive heart and chronic kidney disease with heart failure and stage 1 through stage 4 chronic kidney disease, or unspecified chronic kidney disease; I50.32 Chronic diastolic (congestive) heart failure; K70.30 Alcoholic cirrhosis of liver without ascites; J44.9 Chronic obstructive pulmonary disease, unspecified; E03.9 Hypothyroidism, unspecified; F17.200 Nicotine dependence, unspecified, uncomplicated; D64.9 Anemia, unspecified; N18.9 Chronic kidney disease, unspecified; M1A.9XX0 Chronic gout, unspecified, without tophus (tophi); Z53.21 Procedure and treatment not carried out due to patient leaving prior to being seen by health care provider; Z91.19 Patient's noncompliance with other medical treatment and regimen
CPT/HCPCS: 71045; 72100; 80053; 83605; 83880; 84484; 85025; 85610; 85730; 87040-91; 87081; 93005; 93970; 99285-25

== ENCOUNTER 2019-04-26 21:17 | Emergency (ER) | payer BC ==
[2019-04-26 23:22] LABS: ABNORMAL IP MESSAGE 1; HEMOGLOBIN 7.7 g/dl (14.0-18.0); MEAN CORPUSCULAR HEMOGLOBIN 19.2 pg (29.0-33.0); MEAN CORPUSCULAR HGB CONC 28.5 g/dl (32.0-37.0); MEAN CORPUSCULAR VOLUME 67.2 fl (82.0-101.0); PLATELET COUNT 164 10^3/UL (140-415); POSITIVE DIFF @See below; RED BLOOD COUNT 4.02 10^6/ul (4.70-6.10); RED CELL DISTRIBUTION WIDTH 26.2 % (11.5-14.5)
[2019-04-26 23:22] LABS: WHITE BLOOD COUNT 9.7 10^3/ul (4.8-10.8)
[2019-04-26 23:26] LABS: ADD MAN DIFF? YES
[2019-04-26] MEDS: SOD CHLORIDE 0.9% 1,000 ML IV (23:29)
[2019-04-26] MEDS: ONDANSETRON 4 MG INJ IV (23:29)
[2019-04-26] MEDS: morphine 4 MG/ML VIAL IV (23:29)
[2019-04-26 23:36] LABS: ALANINE AMINOTRANSFERASE 16 IU/L (13-69); ALBUMIN 3.5 g/dl (3.3-4.9); ALKALINE PHOSPHATASE 123 IU/L (42-121); ANION GAP 7 (5-13); ASPARTATE AMINO TRANSFERASE 123 IU/L (15-46); BILIRUBIN,INDIRECT 0.4 mg/dl (0-1.1); BILIRUBIN,TOTAL 0.4 mg/dl (0.2-1.3); BLOOD UREA NITROGEN 16 mg/dl (7-20); CARBON DIOXIDE 27 mmol/L (21-31); CHLORIDE 101 mmol/L (97-110); Estimated GFR 44 mL/min (>60); GLUCOSE 80 mg/dl (70-220); POTASSIUM 5.4 mmol/L (3.5-5.1); SODIUM 135 mmol/L (135-144)
[2019-04-27 00:20] LABS: ACANTHOCYTES 1+ (0-0); ANISOCYTOSIS 1+ (0-0); BASOPHIL #M 0.8 10^3/ul (0.0-0.0); BASOPHILS % (M) 9 % (0-2); BURR CELLS 1+ (0-0); EOSINOPHILS % (M) 3 % (0-7); ERYTHROBLAST% (NRBC) (M) 1 % (0-0); HYPOCHROMASIA 2+ (0-0); LYMPHOCYTES #M 1.7 10^3/ul (0.8-2.9); LYMPHOCYTES % (M) 18 % (15-51); MICROCYTOSIS 1+ (0-0); MONOCYTE #M 0.8 10^3/ul (0.3-0.9); MONOCYTES % (M) 9 % (0-11); PLATELET ESTIMATE NORMAL; POIKILOCYTOSIS 2+ (0-0); POLYCHROMASIA 3+ (0-0); REACTIVE LYMPHOCYTES% (M) 1 % (0-0); SEGMENTED NEUTROPHILS (M) % 60 % (39-77); SMUDGE%M 15 % (0-0); TARGET CELLS 1+ (0-0); TEAR DROP CELLS 1+ (0-0)
== END 2019-04-27 03:17 | disposition home or self-care (01) ==
LOC: E/R 21:17
DX: L03.116 Cellulitis of left lower limb (principal); I10 Essential (primary) hypertension; F17.210 Nicotine dependence, cigarettes, uncomplicated; F10.920 Alcohol use, unspecified with intoxication, uncomplicated; L03.115 Cellulitis of right lower limb
CPT/HCPCS: 36415; 71045; 80053; 80307; 83605; 85025; 96374; 96375; 99285-25

== ENCOUNTER 2019-04-27 10:19 | Emergency (ER) | payer BC | END 2019-04-27 15:30 | disposition home or self-care (01) | LOC: E/R 10:19 | DX: F10.10 Alcohol abuse, uncomplicated (principal); F17.210 Nicotine dependence, cigarettes, uncomplicated; M79.9 Soft tissue disorder, unspecified; Z64.4 Discord with counselors | CPT/HCPCS: 99283 ==

== ENCOUNTER 2019-04-29 11:22 | Emergency (ER) | payer BC | END 2019-04-29 16:38 | disposition home or self-care (01) | LOC: E/R 11:22 | DX: G89.29 Other chronic pain (principal); F10.10 Alcohol abuse, uncomplicated; I10 Essential (primary) hypertension; Z87.891 Personal history of nicotine dependence | CPT/HCPCS: 99283 ==